=== PATIENT | male | born 1945 | race Caucasian/White ===

== ENCOUNTER 2017-03-24 14:15 | Inpatient (IN) | payer MEDICARE, OTHER ==
[~2017-03-24] VITALS: Ht 185.4 cm; Wt 84.2 kg
[~2017-03-24 14:15] MED LIST: ASPI-628 PO; ATRV10T PO; Aspirin PO; CLOP75TA3 PO; Hydrocodone/Acetaminophen PO; LISI-567 PO; LISI-611 PO; METO-386 PO; METO25TA3 PO; MULT-1073 PO; NITR0.4T SL; SIMV20TA4 PO
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
[2017-03-24 14:24] VITALS: BP 120/93; PULSE 108; RESP 22; O2SAT 97
[2017-03-24] MEDS ORDERED: 0.9% Sodium Chloride 1,000 ML IV ONE ×2 (14:38→23:00)
[2017-03-24 14:52] LABS: BASOPHILS % (AUTO) 0.1 % (0-3); EOSINOPHILS % (AUTO) 0.6 % (0-5); MONOCYTES % (AUTO) 5.7 % (4-12); Mean Corpuscular Hemoglobin 30.1 pg (27.0-35.0); Mean Corpuscular Volume 92.5 fL (81-100); NEUTROPHILS % (AUTO) 79.5 % (40-74); Platelet Count 303 bil/L (150-400)
[2017-03-24 15:10] LABS: D-Dimer 1.7 mg/L FEU (<0.50); INR 1.08 ratio
--- NOTE | 2017-03-24 15:12 | DRSVH ---
PROCEDURE: X-RAY CHEST ONE VIEW, PORTABLE ([id number]) INDICATIONS: syncope, preceding chest pain TECHNIQUE: One view of the chest was acquired. COMPARISON: None. FINDINGS: Surgical changes and devices: None. Lungs and pleura: No pleural effusions or pneumothorax. Lungs are clear. Mediastinum: Mediastinal contours appear normal. Heart size is normal. Bones and chest wall: No suspicious bony lesions. Overlying soft tissues appear unremarkable. IMPRESSION: No acute pulmonary process. Dictated by: Windy Larsen M.D. on 03/24/2017 at 14:05 Approved by: Windy Larsen M.D. on 03/24/2017 at 14:10
[2017-03-24 15:35] LABS: Creatine Kinase 64 U/L (21-232); Magnesium 2.4 mg/dL (1.6-2.6); TROPONIN T < 0.010 ug/L (0.0-0.011)
--- NOTE | 2017-03-24 16:23 | DRSVH ---
PROCEDURE: CT ANGIO CHEST PULMONARY EMBOLISM ([id number]) INDICATIONS: syncope, chest pain, CA, elevated ddimer TECHNIQUE: After the administration of intravenous contrast, 2 mm thick sections acquired from the pulmonary api elsa to the posterior costophrenic angles. 3-dimensional maximum intensity projection (MIP) coronal a nd sagittal reformats were then acquired through the thorax. For radiation dose reduction, the follo wing was used: automated exposure control, adjustment of mA and/or kV according to patient size. COMPARISON: [facility], CT, CT ABD PANCREATIC PROTOCOL, 09/16/2016, 8:35. [facility], CT, CT ABD PELVIS W CON, 03/24/2017, 16:06. FINDINGS: Image quality: Excellent. Pulmonary arteries: Pulmonary arteries are normal in size, and demonstrate no intraluminal filling d efects to suggest central pulmonary embolism. Lungs and pleura: Trace pulmonary radiopacities are present within the anterior aspect of the left up per lobe. A subtle groundglass 4 mm diameter nodule is present at the base of the right middle lobe ( series 3, image 36). No pleural effusion or pneumothorax. Mediastinum: Heart size is normal, without pericardial effusion. No mediastinal or hilar adenopathy . Thoracic aorta is normal in caliber and enhancement. Trace atheromatous plaque is present at the aortic arch. There is a right subclavian catheter the tip of which is not visualized given high densi ty contrast in the subclavian vein and superior vena cava. Esophagus is normal in caliber, without hi atal hernia. Bones and chest wall: No suspicious bony lesions. Ribs and thoracic spine appear intact throughout. There are bilateral subcentimeter low density thyroid nodules. A calcification is present within the left thyroid lobe. No axillary or supraclavicular adenopathy. Abdomen: There is a questionable 1.0 cm diameter centrally cystic lesion within the body of the pancr eas which was not visualized on the prior study (series 2, image 138). Subcentimeter calcified stones are present within the gallbladder fundus which is partially visualized. Please see detailed descrip tion of the findings on the associated CT from the same date. IMPRESSION: 1. No acute pulmonary embolus. 2. 4 mm groundglass nodule. No prior comparisons are available. Please see followup guidelines below. 3. Please see detailed description of abdominal findings on the associated CT of the abdomen from the same date. Dictated by: Vanessa Torres M.D. on 03/24/2017 at 16:12 Approved by: Vanessa Torres M.D. on 03/24/2017 at 16:21
[2017-03-24] MEDS ORDERED: Meropenem Inj 1,000 MG in 0.9% Sodium Chloride 50 ML IV ONE (16:25)
[2017-03-24] MEDS ORDERED: 0.9% Sodium Chloride 1,000 ML IV SCH (16:30)
--- NOTE | 2017-03-24 16:36 | DRSVH ---
PROCEDURE: CT ABDOMEN AND PELVIS WITH CONTRAST ([id number]) INDICATIONS: abd pain, syncope, abnl LFT TECHNIQUE: After the administration of intravenous contrast, 5 mm thick sections acquired from the diaphragm to the symphysis. 5 mm coronal and sagittal reformats were acquired. For radiation dose reduction, the following was used: automated exposure control, adjustment of mA and/or kV according to patient annie stafford. COMPARISON: [facility], CT, CT ABD PANCREATIC PROTOCOL, 09/16/2016, 8:35. FINDINGS: Image quality: Excellent. ABDOMEN: Lung bases: There is a 4 mm right middle lobe groundglass nodule. The lung bases are otherwise clear. Solid organs: Liver and spleen are normal in size and enhancement. There is subcentimeter calcified gallstones. No gallbladder wall thickening or pericholecystic fluid. Biliary system is non dilated. T here is overall normal pancreatic enhancement. The pancreas is mildly atrophic. A 1.0 cm diameter cys tic lesion is present within the body of the pancreas (series 4, image 32). No left adrenal nodules. The right kidney and adrenal gland are surgically absent. Left kidney is unremarkable. An exophytic low density cystic lesion is present at mid pole. Peritoneum and bowel: The stomach and small bowel demonstrate normal caliber and wall thickness. The appendix is not visualized. There is extensive sigmoid colon diverticulosis. There is a long segment of sigmoid colonic mucosal thickening and pericolonic fat stranding. Additionally, there is a ill-def ined 4.7 x 4.5 x 3.0 cm gas and fluid collection in the mid sigmoid colon consistent with a perforate d abscess. There is a moderate amount of pneumoperitoneum intercalated through the mesenteric fat in the left lower quadrant and in the periaortic region. Nodes and vessels: No retroperitoneal or mesenteric adenopathy by size criteria. Aorta and inferior vena cava are normal in size. There are scattered atheromatous calcifications throughout the aorta and iliac arteries bilaterally. Miscellaneous: No ventral hernias. PELVIS: Genitourinary: Bladder wall thickness is normal. Miscellaneous: No inguinal adenopathy. There is a small fat containing right inguinal hernia. Bones: No suspicious bony lesions. A severe, lytic appearing wedge compression deformity is present at L1 which is a new finding when compared with the CT dated 09/16/16. This corresponds with the expan sile lytic lesion at this level on the study dated 09/16/16. Of note, this was described as T12 on the prior study; however no ribs are visualized at this level suggesting L1). IMPRESSION: 1. Perforated acute diverticulitis with intra-abdominal abscess as above. Given the location posterio r to the sigmoid colon and the bladder, this is likely not amenable to percutaneous drainage. Surgica l consultation recommended. 2. Multiple foci of pneumoperitoneum. It is unclear whether there is a solitary perforated region of the sigmoid colon in the region of the abscess or if there may be a second bowel perforation more pro ximally in the left lower quadrant. These findings were discussed with Dr. Moreno at 4:27 PM on 03/24/17. 3. 1.0 cm diameter cystic lesion within the body of the pancreas. This is new when compared with the prior study dated 09/16/16. Differential considerations include both neoplastic and nonneoplastic cyst ic lesions. 3. Cholelithiasis. No acute cholecystitis. 4. Severe wedge compression deformity at L1 likely pathologic in nature given the expansile lytic les ion in this vertebral body on the study dated 09/16/16. Dictated by: Vanessa Torres M.D. on 03/24/2017 at 16:24 Approved by: Vanessa Torres M.D. on 03/24/2017 at 16:35
[2017-03-24] MEDS ORDERED: Meropenem Inj 1,000 MG in 0.9% Sodium Chloride 100 ML IV ONE (17:00)
[2017-03-24] MEDS ORDERED: Meropenem Inj 1,000 MG in 0.9% Sodium Chloride 100 ML IV SCH (17:00)
[2017-03-24] MEDS ORDERED: DEX1 PO (17:01)
[2017-03-24] MEDS ORDERED: LISI40TA PO (17:01)
[2017-03-24] MEDS ORDERED: METO-369 PO (17:01)
[2017-03-24] MEDS ORDERED: METF500T4 PO (17:01)
[2017-03-24] MEDS ORDERED: HYDR-3825 PO (17:01)
[2017-03-24] MEDS ORDERED: DOCU250C2 PO (17:02)
[2017-03-24] MEDS ORDERED: PAZO200T PO (17:02)
[2017-03-24] MEDS ORDERED: ASPI-973 PO (17:02)
[2017-03-24] MEDS ORDERED: Lactated Ringer's 1,000 ML IV ONE (17:34)
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
[2017-03-24] MEDS ORDERED: Lactated Ringer's 1,000 ML IV SCH (18:11)
[2017-03-24] MEDS ORDERED: Lactated Ringer's 500 ML IV PRN (18:11)
[2017-03-24] MEDS ORDERED: Atropine 0.4 mg/mL Inj IVPUSH PRN (18:15)
[2017-03-24] MEDS ORDERED: Labetalol 5 mg/mL 20 mL Inj IV PRN (18:15)
[2017-03-24] MEDS ORDERED: Phenylephrine 10,000 mCg/mL Inj IVPUSH PRN (18:15)
[2017-03-24] MEDS ORDERED: HYDROmorphone 1 mg/mL Inj IVPUSH PRN (18:15)
[2017-03-24] MEDS ORDERED: hydrALAZINE 20 mg/mL Inj IVPUSH PRN (18:15)
[2017-03-24] MEDS ORDERED: Dexamethasone 4 mg/mL Inj IVPUSH PRN (18:15)
[2017-03-24] MEDS ORDERED: EPHEDrine Sulfate 50 mg/mL Inj IVPUSH PRN (18:15)
[2017-03-24] MEDS ORDERED: Ondansetron 2 mg/mL 2 mL Inj IVPUSH PRN ×2 (18:15→21:35)
[2017-03-24] MEDS ORDERED: fentaNYL-PF 50 mCg/mL 2 mL Inj IVPUSH PRN (18:15)
--- NOTE | 2017-03-24 18:51 | HP ---
[address] [address] HISTORY AND PHYSICAL PATIENT: JOSAFAT SOLIS : 1945 MR#: [id number] ADMIT: 03/24/2017 JOB ID: [id number] CHIEF COMPLAINT: Weakness. HISTORY OF PRESENT ILLNESS: The patient is a 71-year-old man who was brought in by EMS after he developed a syncopal episode at home. On further discussion with the patient and his , he has complained of approximately three days of lack of appetite, left-sided abdominal pain, back pain, and some subjective chills but no fevers. He has not had any vomiting. Upon arrival at his house, his systolic blood pressure was reportedly 60, which improved with fluid. He complains of constipation for several days, no blood in his stool. He also complains of pain with urination and difficulty urinating. In the emergency department, his vital signs improved with IV fluids. A stat CT scan of the abdomen and pelvis was obtained as well as a CT angio of the chest looking for pulmonary embolism. There was no pulmonary embolus. There was a 4 mm ground-glass nodule in his right middle lobe. In the abdomen he had findings consistent with perforated sigmoid diverticulitis, with an abscess measuring 4.7 x 4.5 x 3.0 cm and a separate more ill-defined area of pneumoperitoneum slightly more proximally along the sigmoid colon. There is also scattered moderate amount of pneumoperitoneum along the mesenteric fat in the retroperitoneum. There was a 1 cm cystic lesion in the body of the pancreas which was new compared to his CT in September 2016, cholelithiasis, and a wedge compression at L1. PAST MEDICAL HISTORY: Renal cell carcinoma, coronary artery disease status post myocardial infarction with two stents placed, COPD, hyperlipidemia, type 2 diabetes mellitus. PAST SURGICAL HISTORY: Bilateral inguinal hernia repair, appendectomy, cardiac stents in 2011 and 2014, right nephrectomy. MEDICATIONS: At home include aspirin 81 mg, dexamethasone, docusate, lisinopril, metformin, metoprolol, pazopanib, and simvastatin. ALLERGIES: No known drug allergies. SOCIAL HISTORY: He does not smoke. Denies alcohol or illicit drug use. FAMILY HISTORY: Reviewed, negative for malignancy. REVIEW OF SYSTEMS: A 10-point review of systems is positive for unplanned weight loss, otherwise negative. PHYSICAL EXAMINATION: Temperature 36.1, pulse 108, blood pressure 120/93, saturation 97% on room air. Body mass index 25.5. General: Ill appearing man sitting in a stretcher in mild distress from pain. HEENT: Sclerae are anicteric. Neck: No lymphadenopathy. Chest: Clear to auscultation bilaterally. Heart: Regular rate and rhythm. No murmurs. Abdomen: Diffusely tender, mildly distended. He has midline laparotomy scar, right lower quadrant scar, bilateral inguinal scars. There are no discrete palpable masses. There are no palpable hernias. He does have positive guarding and rebound tenderness. Extremities: No edema. Neuro: No deficits. Psychiatric: Affect is appropriate. LABORATORIES: White count is 9.5, hematocrit 49.1, platelets 303. Creatinine 1.23, glucose 114. Bilirubin 1.4, AST 58, ALT 124, alkaline phosphatase 114. Albumin 3.3. INR 1.08. IMAGING: As described in history of present illness. ASSESSMENT AND PLAN: A 71-year-old man with perforated sigmoid diverticulitis with abscess and pneumoperitoneum with peritonitis. Because of his immunosuppression from his oral chemotherapy for renal cell carcinoma, I do not think he is a candidate for conservative treatment. I have recommended that we go to the operating room for surgical management of his perforated sigmoid colon. Most likely he will undergo a laparotomy with sigmoid colectomy, descending colostomy, and Diallo's pouch. The technical aspects of surgery were discussed. Risks of surgery were discussed, including but not limited to, bleeding, infection, injury to other structures. He has been started on broad-spectrum antibiotics which will be continued after surgery. A Dallas catheter will be placed at the time of surgery. Most likely he will need to be in the hospital for approximately one week after surgery and I would not be surprised if he needs to go to a longterm facility once he is ready for discharge from the hospital.
[2017-03-24] MEDS ORDERED: Bupivacaine Liposome 1.3% 20 mL Inj ONE (18:55)
[2017-03-24 19:42] LABS: APPEARANCE,URINE CLEAR (CLEAR,HAZY); COLOR,URINE YELLOW (YELLOW); OCCULT BLOOD,URINE NEGATIVE (NEGATIVE); PH,URINE 5.5 (5.0-8.0); UROBILINOGEN,URINE NORMAL (NORMAL)
--- NOTE | 2017-03-24 21:12 | PCM.SURGOP ---
Surgical Operative Report Date of Service: Mar 24, 2017 Pre Operative Diagnosis Perforated sigmoid diverticulitis Post Operative Diagnosis Same, feculent peritonitis Procedure: Exploratory laparotomy, sigmoid colectomy, descending colostomy (Diallo procedure) Surgeon and Esthetic[facility] [employer] [facility]: Surgeon: Vik Sagastume MD Assistants: Checo Solano MD PGY-3 Indication for Procedure 71-year-old man who has been on oral chemotherapy after recent right nephrectomy for renal cell carcinoma, who is brought in by EMS after he had a syncopal episode at home. He was described as having 3 days of anorexia and chills, as well as back pain. He was intermittently hypotensive in the emergency department. A CT scan of the abdomen and pelvis showed evidence of perforated sigmoid diverticulitis with a 4.7 cm abscess and free air in the abdomen. After discussion of risks and benefits, he agreed to proceed with exploratory laparotomy, Breen's procedure. Findings: The perforation the sigmoid colon was fairly proximal. There was feculent peritonitis, with a large abscess sitting in the pelvis. The sigmoid colon was opened on the back table after resection, and there was no evidence of neoplasia grossly. Procedure Details After smooth induction of general endotracheal anesthesia, he was placed in the supine position with the right arm tucked. A Dallas catheter was placed. The abdomen was prepped and draped in wide sterile fashion. A procedural pause was performed according to the SCOAP checklist, and all were found to be in agreement. A midline laparotomy was made from the symphysis pubis to just above the umbilicus. Dissection was carried through the subcutaneous tissue until the midline fascia was incised and the peritoneal cavity was entered safely. Immediate feculent peritonitis was encountered. Adhesions were taken down from the greater omentum to the anterior abdominal wall until a Bookwalter retractor could be placed. There are also some adhesions from the distal sigmoid colon to the bladder, which were bluntly mobilized. There was an area of perforation in the sigmoid colon fairly proximally. Over the distal sigmoid colon, there was a large abscess cavity which was drained, and I suspected there was a second perforation there, although later in the case when the colon was opened, a second perforation could not be identified grossly. The greater omentum was dissected off the sigmoid colon. The lateral peritoneal reflection was incised with electrocautery. A portion of the descending colon was selected for dividing the colon. The colon was skeletonized, and it was divided with a CONCHIS 75 mm stapler with a blue load. This was approximately 5 cm proximal to the area of perforation. This was in the mid descending colon. Dissection was then carried through the mesocolon, staying close to the colon itself to avoid injury to his remaining ureter. Dissection was performed with the LigaSure device. This dissection continued distally until the optimal rectum was reached where the tenia splayed out, and the rectum was softer and more distensible. Proximal mesorectal rectum was skeletonized posteriorly. The proximal rectum was divided with the contour stapler. A suture was placed on the proximal end of the sigmoid colon, and was placed on the back table. Hemostasis was adequate. The staple line on the rectum was marked with 0 Prolene sutures 3 with long one-inch tails. The mid descending colon had to be mobilized further for her to be able to reach the anterior abdominal wall for colostomy. The remaining retroperitoneal attachments of the descending colon were divided with the LigaSure device. The splenic flexure was not taken down, although dissection was carried up essentially to the splenic flexure. A circular incision was made in the left upper quadrant, and skin was excised. Dissection was carried down until a cruciate incision was made in the anterior rectus fascia. The muscle was split, and similarly a cruciate posterior rectus fascial incision was made. This was sized appropriately until the descending colon could be brought out through that fascial incision. The descending colon had to be skeletonized of its fat in order to be brought out through the fascial incision. It was somewhat congested, although perfused. It was left in place with Catherine clamp for the time being. 2 separate 3-0 silk sutures were placed on the posterior rectus fascia to the colon to prevent significant herniation. The peritoneal cavity was then extensively irrigated with several liters of warm saline. Hemostasis was adequate. A 19 [place] round ARCELIA drain was brought out through the right upper quadrant, looped through the pelvis into the left paracolic gutter. The drain was secured to the skin with a 2-0 nylon suture. Gloves and isthmus were changed. The midline fascia was closed with running looped 0 PDS sutures 2. The subcutaneous tissue was irrigated. The skin was closed loosely with radha. The descending colostomy was then matured after the staple line was excised and discarded. The stoma was matured with interrupted 3-0 Vicryl sutures circumferentially. A colostomy appliance was applied. Sterile dressings were applied to the midline incision. At the end of the case all needle and sponge counts were correct 2. He remained somewhat hypotensive at the end of the operation, so he was left intubated, and taken to the critical care unit in serious condition, having tolerated the procedure well. Before leaving the operating room, Dr. Gipson placed a right radial arterial catheter and a central venous catheter. The colon was opened on the back table, which again revealed no evidence of neoplasia, and it was sent for permanent pathology. Complications There were no periprocedural complications identified. Surgical Specimen Removed: Yes Specimen sent to Pathology: Yes Surgical Specimen description: Sigmoid colon Anesthetic Plan: GA Grafts, Implants: None Output, Estimated Blood Loss: 100 Blood Administration during souza: No Drains: ARCELIA Drain #1 Catheters: Urethral 2 Way [place] copies to: Ld Turcios Joshua D MD Mar 24, 2017 21:12
[2017-03-24] MEDS ORDERED: Insulin Human REGular Inj 100 UNIT in 0.9% Sodium Chloride-Pha MIX 100 ML IV SCH (21:21)
[2017-03-24] MEDS ORDERED: MetoCLOpramide 5 mg/mL 2 mL Inj IVPUSH PRN (21:35)
[2017-03-24] MEDS ORDERED: Propofol Inj 1,000,000 MCG in IV Premix 1 EACH IV SCH (21:47)
[2017-03-24] MEDS ORDERED: Phenylephrine/NS-PF 100 mCg/mL 5 mL Syringe IVPUSH PRN (21:50)
[2017-03-24] MEDS ORDERED: Midazolam Inj 100 MG in IV Premix 1 EACH IV SCH (21:52)
--- NOTE | 2017-03-24 21:52 | ABG ---
DateTimeAnalyzed 21:43:45 -_ pH ____7.330 - pCO2 ___34.6__ -mmHg pO2 153 -mmHg HCO3- ___18.2__ -mmol/L ABE ___-7.0__ -mmol/L tHb ___12.9__ -g/dL O2Hb ___98.8__ -% COHb ____1.4__ -% MetHb ____0.0__ -% FIO2 ___50.0__ -% PEEP ____0.0__ -cmH2O Set_RR 10 -b/min Vt __600.0__ -L Drawn By MK - Date/Time Notified____ 21:51:00 -_ Oxygen Device 1 VENTILATOR - Notified By MK - K+ ____4.8__ -mmol/L 3.5 5.0 Lion test _Positive -
[2017-03-24] MEDS ORDERED: Dextrose 10% 250 ML IV PRN (21:55)
[2017-03-24 21:57] VITALS: BP 91/68; O2SAT 100
--- NOTE | 2017-03-24 22:15 | PCM.ANEP1 ---
Post Anesthesia PACU Phase 1 Assessment Vital Signs Vital Signs Date Time Temp Pulse Resp B/P Pulse Ox O2 Delivery O2 Flow Rate FiO2 03/24/17 21:57 91/68 100 40 03/24/17 14:24 36.1 108 22 120/93 97 Room Air Anesthetic Administered: GA Level of Alertness: Drowsy, not talking Pain: Yes (reports "comfortable" at this time) Nausea or Vomiting: No CV Function & Hydration Stable: No Airway Device: Endotrachial Tube Oxygen Delivery: Mechanical Ventilator Lungs: Clear to Auscultation, Normal Air Movement PACU Phase 2 Assessment Complications: No Follow up Care: No Patient Instructions Provided: N/A Alvaro Gipson MD Mar 24, 2017 22:15
[2017-03-24] MEDS: fentaNYL 2,500 mCg/250 mL 2,500 MCG in IV Premix 1 EACH IV SCH (22:16)
[2017-03-24] MEDS: Norepineph 8,000 mCg/250 mL NS 8,000 MCG in IV Premix 1 EACH IV SCH (22:16)
[2017-03-24] MEDS: SODIUM CHLORIDE 0.9% IV PRN (22:27)
[2017-03-24] MEDS: MIDAZOLAM IV PRN (22:27)
[2017-03-24] MEDS: Dextrose 5% Lactated Ringer's 1,000 ML IV SCH (23:21)
[2017-03-25] VITALS (10 sets, daily range): BP systolic 94–135; BP diastolic 54–70; PULSE 90–102; RESP 12; O2SAT 98–100
[2017-03-25] MEDS: Heparin 5,000 Unit/mL Inj SUBQ SCH ×3 (00:30→15:46)
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
[2017-03-25] MEDS: Chlorhexidine 0.12% 15 mL Oral Solution MT SCH ×6 (01:05→20:14)
--- NOTE | 2017-03-25 01:26 | NUR ---
Admit note: Pt received into room 2020 at 2215 from OR per bed. Pt is sedated and being ventilated with BVM. RT in room connecting pt to vent. Anesthesia in room monitor applied shows sinus rhythm and A-line reading high BP. Anesthesia stated they had just given pt a bolus of phenelephrine prior to come to CCU. BP did start to drop and levophed was started and titrated to BP. Pt was started on versed for sedation due to propofol dropping BP. Fentanyl was also started. CVP was obtained and NS bolus was given for CVP of 5.
[2017-03-25 04:08] LABS: Mean Corpuscular Volume 92.4 fL (81-100); Platelet Count 203 bil/L (150-400)
[2017-03-25 04:24] LABS: INR 1.19 ratio
[2017-03-25 04:26] LABS: BASOPHILS % (AUTO) 0 % (0-3); EOSINOPHILS % (AUTO) 0 % (0-5); MONOCYTES % (AUTO) 2 % (4-12); NEUTROPHILS % (AUTO) 63 % (40-74)
--- NOTE | 2017-03-25 04:28 | ABG ---
DateTimeAnalyzed 04:19:27 -_ pH ____7.349 - 7.350 7.450 pCO2 ___23.6__ -mmHg 35.0 45.0 pO2 170 -mmHg 69.0 116 HCO3- ___13.0__ -mmol/L 22.0 26.0 ABE __-11.5__ -mmol/L -2.0 2.0 tHb ___10.4__ -g/dL 12.0 18.0 O2Hb ___99.1__ -% COHb ____1.5__ -% 0.0 1.5 MetHb ____0.0__ -% 0.4 1.5 FIO2 ___40.0__ -% PEEP ____5.0__ -cmH2O Set_RR 12 -b/min Vt __580.0__ -L Drawn By MK - Date/Time Notified____ 04:28:00 -_ Spontaneous_RR 12 -b/min Oxygen Device 1 VENTILATOR - Notified By MK - Notified Whom __beuning - K+ ____3.4__ -mmol/L 3.5 5.0 Lion test N/A -
--- NOTE | 2017-03-25 04:40 | PROCED ---
[address] [address] PROCEDURE NOTE PATIENT: JOSAFAT SOLIS : 1945 MR#: [id number] ADMIT: 03/24/2017 JOB ID: [id number] DATE OF SERVICE: DIAGNOSIS: Hypotension. POSTOPERATIVE DIAGNOSIS(ES): PREOPERATIVE DIAGNOSIS(ES): SURGEON: Alvaro Gipson MD. PROCEDURE: Central line placement. At the conclusion of the patient's colectomy in the operating room, a decision was made to place a central line in lieu of the patient's decreasing blood pressures. DESCRIPTION OF PROCEDURE: The patient was placed in the Trendelenburg position. His neck was sterilely prepped and draped and using a sterile Seldinger technique, a triple-lumen catheter was placed under ultrasound guidance. The left internal jugular was accessed at the first attempt. Blood loss was less than 3 cc. There was good flow in all three lumens and sterile dressing was applied. NAV
[2017-03-25] MEDS ORDERED: Sodium Bicarb (50 mEq) 8.4% 1 mEq/mL 50 mL Syringe IVPUSH ONE (05:50)
--- NOTE | 2017-03-25 06:06 | ABG ---
DateTimeAnalyzed 05:57:53 -_ pH ____7.463 - 7.350 7.450 pCO2 ___36.8__ -mmHg 35.0 45.0 pO2 102 -mmHg 69.0 116 HCO3- ___26.3__ -mmol/L 22.0 26.0 ABE ____2.4__ -mmol/L -2.0 2.0 tHb ___11.6__ -g/dL 12.0 18.0 O2Hb ___98.0__ -% COHb ____1.6__ -% 0.0 1.5 MetHb ____0.0__ -% 0.4 1.5 sO2 ___99.6__ -% FIO2 ___28.0__ -% PEEP ____5.0__ -cmH2O Set_RR 12 -b/min Vt __520.0__ -L Drawn By MK - Date/Time Notified____ 06:05:00 -_ Spontaneous_RR 12 -b/min Oxygen Device 1 VENTILATOR - Notified By MK - K+ ____4.4__ -mmol/L 3.5 5.0 tO2 ___16.1__ -Vol% Lion test N/A -
[2017-03-25] MEDS: Dextrose 5% Lactated Ringer's 1,000 ML IV SCH ×4 (07:37→20:15)
--- NOTE | 2017-03-25 07:57 | DRSVH ---
PROCEDURE: X-RAY CHEST ONE VIEW, PORTABLE ([id number]) INDICATIONS: line placement, endotracheal tube placement assess TECHNIQUE: One view of the chest was acquired. COMPARISON: [facility], CR, XR CHEST 1VW (PORTABLE), 03/24/2017, 14:40. FINDINGS: Surgical changes and devices: ET tube with tip 3.3 CM above the willie. Enteric tube with tip below t he diaphragm. Left IJ CVC with tip at the confluence of the brachiocephalic veins. Lungs and pleura: Small left pleural effusion. No pneumothorax. Left basilar atelectasis otherwise th e lungs are clear. Mediastinum: Mediastinal contours appear normal. Heart size is normal. Bones and chest wall: No suspicious bony lesions. Overlying soft tissues appear unremarkable. IMPRESSION: New ET tube, enteric tube, and left-sided IJ CVC in expected positions. New left pleural effusion with left basilar atelectasis. Dictated by: Bang Chung M.D. on 03/25/2017 at 7:54 Approved by: Bang Chung M.D. on 03/25/2017 at 7:56
[2017-03-25] MEDS: Famotidine Inj 20 MG in IV Premix 1 EACH IV SCH ×2 (08:27→20:14)
[2017-03-25] MEDS: Norepineph 8,000 mCg/250 mL NS 8,000 MCG in IV Premix 1 EACH IV SCH ×2 (09:11→22:00)
--- NOTE | 2017-03-25 09:22 | PCM.PNSURG ---
Subjective Date of Service: Mar 25, 2017 Visit Information: Reason for Visit Perferated Diverticulitis Surgery/Surgery Date Post-Op Day # Date of Admission: Mar 24, 2017 at 17:07 Hospital Day # Subjective: No acute overnight events Remained intubated and sedated Weaned off pressors late this morning Did not require an insulin gtt Objective Vital Sign- Last 8 Hours Date Time Temp Pulse Resp B/P Pulse Ox O2 Delivery O2 Flow Rate FiO2 03/25/17 08:40 100 109/65 100 28 03/25/17 07:57 Ventilator 03/25/17 07:55 37.7 90 12 135/70 98 Mechanical Ventilator 28 03/25/17 04:33 85 111/63 100 28 03/25/17 04:30 Ventilator Intake and Output- Last 8 Hour 03/25/17 Cumulative From/Thru 07:00 03/24/17 14:24 - 03/25/17 05:35 Intake Total 2752 ml 3752 ml Output Total 630 ml 750 ml Balance 2122 ml 3002 ml Intake IV Total 2752 ml 3752 ml Output Urine Total 500 ml 500 ml Gastric Drainage Total 0 ml 0 ml Drainage Total 130 ml 130 ml Estimated Blood Loss 120 ml General: Other (Intubated/sedated) Lungs: Normal Air Movement Heart: Regular Rate/Rhythm Abdomen: Soft, Other (Midline incision dressed with clean gauze. RUQ ARCELIA with serosanguinous output. LUQ ostomy dusky and purple, no output in bag. ) Catheters: Urethral [address] Way [place] Result Diagram: 03/25/17 0400 03/25/17 0400 Assessment & Plan Impression 71M s/p exploratory lapatoromy with sigmoid/descending colon resection, Hartmanns and end-descending colostomy for perforated diverticulitis. He is current intubated and sedated with normalizing hemodynamics. Problems: Plan - Appreciate ongoing care from primary critical care team - Continue broad spectrum antibiosis - Ok to consider extubation from surgical standpoint - Aggressive glycemic control. Please continue Q3 glucose checks today. Insulin gtt if GB >180 - [place] and ARCELIA should remain - Regarding the ostomy, we will allow this to demarcate and declare if intervention is required over the course of the next several days. - Please do not hesitate to page with questions or concerns. VTE Prophylaxis: Sub-Q Heparin (Unfractionated) Resuscitation Status: CPR: Attempt Resuscitation Attending Statement: I examined this patient and agree with the note as dictated by Dr. Solano above with the exception of the following update. On morning rounds, the surgery team was informed that the pt had been weaned off of pressors and was on antibiotics. It was later discovered that pressors were still running and the only antibiotic order was a one time dose. Scheduled antibiotics were later ordered. Discussions were had with all involved parties (day and skein washer RN , hospitalist attending/resident/analysis intern, surgery resident, MS3). MD Xiomara Duran Samuel J MD Mar 25, 2017 09:22 Kjaal Johnson MD Mar 26, 2017 09:13
--- NOTE | 2017-03-25 10:30 | NUR ---
NUTRITION ASSESSMENT: ASSESS:71 YO male admitted with perforated diverticulitis, pneumoperitoneum with peritonitis, s/p exploratory laparotomy with sigmoid / descending colon resection, Diallo's and end-descending colostomy. He is current intubated and sedated with normalizing hemodynamics. Surgery recommending moving toward extubation. PMHx:Renal cell cancer with current chemotherapy, immunosuppression, R. nephrectomy, CAD, COPD, HTN, dyslipidemia, type 2 diabetes, hiatal hernia, GI bleed. DIET:NPO. LABS: Reviewed. Chloride 113, CO2 14, Cr 0.75, Glu 145, Ca 7.1, ALT 66, Alb 1.7. MEDICATIONS: Reviewed. Versed, fentanyl, insulin. NUTRITION FOCUSED PHYSICAL ASSESSMENT: GI symptoms / stool: None via colostomy currently.Bryan: 13. Skin Integrity: The ostomy site appears abnormal; surgery following. ANTHROPOMETRICS: Current Wt: 88.1 kgBMI: 25.6 kg/m2. IBW: 83.64 kg (105% IBW) ESTIMATED NEEDS (GI SURGERY, VENT, POSS. WOUNDS): Calories: 1938 - 2203 kcal (22 - 25 kcal / kg BW) Protein: 132 - 159 g protein (1.5 - 1.8 g / kb BW) Fluid: Approx. 2643 mL (30 mL / kg BW) NUTRITION DIAGNOSIS: 1)Inadequate oral intake related to altered GI function, as evidenced by colectomy / colostomy, NPO status. 2)Possible wound infection related to recent colostomy placement; surgery following. INTERVENTION: 1) In the event bowel function does not return over the weekend, recommend consideration for TPN to mitigate malnutrition due to increased nutrient needs. Recommendation: dextrose 290 g, amino acid 145 g, lipids 55 g, providing 2116 kcal, 145 g protein, sufficient to meet 100% nutrient needs. 2) In the event TPN ordered, recommend initiate macronutrients at approx. 35% goal, as follows to mitigate refeeding issues: dextrose 100 g, amino acid 50 g, 20 g lipids. Slowly advance to goal rate. MONITOR/EVALUATE: NPO / vent status, GI status, labs, orders for nutrition support. Follow up per high nutrition risk guidelines.
--- NOTE | 2017-03-25 13:20 | CONS ---
[address] [address] CONSULTATION REPORT PATIENT: JOSAFAT SOLIS : 1945 MR#: [id number] ADMIT: 03/24/2017 JOB ID: [id number] DATE OF SERVICE: 03/25/2017 REASON FOR CONSULTATION: Postop hypotension and ventilatory care. HISTORY OF PRESENT ILLNESS: The patient is a 71-year-old, male who developed a syncopal episode at home. Apparently, has had a poor appetite with left-sided abdominal pain, back pain for about three days. No apparent fevers. No vomiting. Upon arrival, blood pressure reported by paramedics to be 60, improving with fluid. Vital signs improved with IV fluids in the emergency department. Evaluation consistent with a perforated sigmoid diverticulitis with an abscess present. The patient currently sedated on a ventilator. Unable to obtain any other facts. He underwent Diallo's procedure with sigmoid colectomy and descending colostomy. Had some episodes of hypotension responding to fluid. Currently on pressors. Admission note indicates that he suffers from coronary artery disease being status post two stents, COPD, and right-sided renal cell carcinoma with nephrectomy, October 2016. According to the records no review of systems. Was unable to be obtained. PAST MEDICAL HISTORY: As above. HOME MEDICATIONS: Include aspirin, dexamethasone, docusate, lisinopril, metformin, metoprolol, pazopanib, simvastatin, hydrocodone with acetaminophen, and sublingual nitroglycerin. No other details are available. Chart notes no known allergies. OBJECTIVE: Temperature 37.7. Pulse 90-100, respiratory rate 12. Blood pressure 109/65, currently dropping to high 80s over low 50s. O2 sat on FiO2 of 28%, PEEP of 5 is 100%. General appearance: Sedated on the ventilator. Eyes: Conjunctivae are pink. Nose and throat could not be examined. Chest is clear with excellent breath sounds bilaterally. Heart: Regular rhythm. Heart tones normal. Abdomen soft. Quiet. Colostomy in place with surgical bandages covering majority of his anterior abdomen. Extremities: No clubbing, cyanosis, nor pretibial edema. Extremities: Warm. LABORATORY DATA: Shows a white count of 6500 with 63 polymorphonuclears, 19 bands, 16 lymphs, 2 monocytes. Hemoglobin 12.2, down from 16 prior to surgery. Platelet count 203,000, down from 303,000 prior to surgery. Sodium 138, potassium 5, chloride 113, CO2 is 14, BUN 27, creatinine 0.7. Lactic acid 1.8. Calcium is 7.1 with an albumin of 1.7 which was 3.3 prior to surgery. Total bilirubin 1.2. AST normal at 29. ALT 66, mildly elevated, but decreasing. Alkaline phos normal at 63. INR 1.19. Postop chest x-ray shows some atelectasis, some increased opacification left base. Most recent arterial blood gases on FiO2 of 0.28, PEEP of 5, respiratory rate of 12, tidal volume of 520 shows pO2 of 102, pCO2 of 36, pH 7.46. ASSESSMENT: Diverticulitis with perforation. Currently blood pressure is a bit unstable. For what it is worth, central venous pressure is 5. Has responded to fluids. He seems a bit hyperchloremic though his potassium is somewhat high. I think at this point, we will continue fluid resuscitation using saline in spite of the hyperchloremia in order to avoid significant hyperkalemia. Would like to get his blood pressure up without the use of pressors due to its effect on the mesenteric perfusion with the colostomy being a bit iffy at this point. Currently on broad-spectrum antibiotics. Fentanyl and Versed being used for sedation. From a ventilatory standpoint, she seems to be doing well. Will start lightening sedation and see how we do. 1. Continue current vent settings. 2. Discontinue lactated Ringer's, using normal saline for fluid resuscitation. For the moment, will administer 500 mL bolus and assess response. 3. Depending on response, will try to taper the norepinephrine. Thank you so much, Dr. Johnson, for asking Pulmonary Service to become involved in the care of this individual. Will follow his respiratory and hemodynamic status closely along with you, as well as the critical care ICU team. Time spent so far in critical care, 45 minutes.
[2017-03-25] MEDS: SODIUM CHLORIDE 0.9% IV PRN (13:33)
[2017-03-25] MEDS: MIDAZOLAM IV PRN (13:33)
--- NOTE | 2017-03-25 14:21 | NUR ---
Note Sedation- fentanyl and versed drips titrated to comfort. Fentanyl drip at 100mcg/h. versed drip titrated down gradually from 5mg/h to 3mg/h so far. Patient appeared relax and breathing with ventilator set rated of 12breeths per min. Patient was waking up and appeared agitated during turning and repositioning, often reaching upwards towards ET tube when unrestrained for position changes. Patient was able to relax after verbally reoriented and reassured turning and did not require additional sedation for this activity at the time. Ventilator- PRVC 28%, RR 12, PEEP 5 and TV 550 with oxygen saturation 98-100%. MD contemplating ex-tubation when patient more stable- no vent pressure support trail ordered yet. BP/HR-Patient remained on levophed drip for pressure support. Drip was weaned down gradually from 0.06mcg/kg/min to 0.04mcg/kg/min and patient remained stable until sudden onset of SVT at 130-135 ranges wit SBP decreasing to 85-90 ranges- consulted with Dr. Riddle. Patient was given NS bolus 500ml X1 per MD verbal order and levophed drip was increased to 0.05mcg/kg/min at the time. SVT resolved in under 10min ant the patients heart rate returned to his baseline of 90-110, BP stabilized. There was a definite correlation between patients increased heart rate and decrease in SBP-MD aware. Mid abdominal dressing remained C/D/I. ARCELIA to bulb suction with small to moderate amount of serum-sanguineous drainage. Colostomy: bowel lining 2-3mm below skin surface- seen by Dr. Johnson surgical team minimal amount of sanguineous drainage-no changed. Wound care consult was ordered for ostomy care follow up. OG to low continues suction with small amount of light green to clear gastric content in collection canister- HOB up, OG placement checked Q4 and PRN.
--- NOTE | 2017-03-25 18:18 | PCM.PNMED ---
Subjective Date of Service Mar 25, 2017 Subjective Subjective: Patient unable to participate in his care as he is currently on the ventilator and sedated Events Overnight: No acute events overnight. ROS: Due to the patient being comatose, a review of systems was unable to be obtained. Exam Vital Signs Vital Sign - Last Date Time Temp Pulse Resp B/P Pulse Ox O2 Delivery O2 Flow Rate FiO2 03/25/17 16:28 100 112/68 100 28 03/25/17 15:40 Ventilator 03/25/17 15:38 37.5 12 Intake and Output 03/24/17 03/24/17 03/25/17 Cumulative From/Thru 15:00 23:00 07:00 03/24/17 14:24 - 03/25/17 05:35 Intake Total 1000 ml 2752 ml 3752 ml Output Total 120 ml 630 ml 750 ml Balance 880 ml 2122 ml 3002 ml Intake IV Total 1000 ml 2752 ml 3752 ml Output Urine Total 500 ml 500 ml Gastric Drainage Total 0 ml 0 ml Drainage Total 130 ml 130 ml Estimated Blood Loss 120 ml 120 ml Exam General: No acute distress, well-developed, well-nourished HEENT: Normocephalic, atraumatic. External ears without defect. Pupils equal, round, and reactive to light and accommodation. Anicteric sclerae, moist conjunctivae. Cardiovascular: Regular rate and rhythm with no murmurs, rubs, or gallops appreciated Pulmonary: Patient is currently on the ventilator, breath sounds are coarse due to ventilation status. Abdomen: Bowel tones present. Soft, nondistended, ostomy in place, no fecal material in the pouch Extremities: No clubbing, cyanosis, edema Skin: Normal temperature, turgor, and texture; no rash, ulcers, or subcutaneous nodules appreciated. Neurological: Unable to assess Normal tone, and bulk. Psychiatric: Unable to assess IVs and Medications IV Fluids 1400 mL normal saline delivered with IV medications. Medications Reviewed: Medications were reviewed in detail Medications High risk medications include: Norepinephrine Midazolam Fentanyl Versed Lab and Diagnostics Result Diagram: 03/25/17 0400 03/25/17 1543 X-Rays, CTs and MRIs (03/24/17) X-RAY CHEST ONE VIEW, PORTABLE IMPRESSION: No acute pulmonary process. Dictated and approved by: Windy Larsen M.D. on 03/24/2017 at 14:05 (03/24/17) CT ANGIO CHEST PULMONARY EMBOLISM IMPRESSION: 1. No acute pulmonary embolus. 2. 4 mm groundglass nodule. No prior comparisons are available. Please see followup guidelines below. 3. Please see detailed description of abdominal findings on the associated CT of the abdomen from the same date. ADDENDUM: Fleischner Society criteria for SOLID lung nodule followup. Nodule size (mm)Low-risk patientHigh-risk [id number] follow-up neededFollow-up at 12 mo; if no change, no further follow-up>[id number] CT at 12 mo; if no change, no further follow-up needed.Initial follow-up CT at 6-12 mo, then 18-24 mo if no change. >6-8Initial follow-up CT at 6-12 mo, then 18-24 mo if no change. Initial follow-up CT at 3-6 mo, then 9-12 mo and 24 mo if no change. > 8Follow-up CT at 3, 9, 24 mo. Or PET and/or biopsy.Same as for low-risk pts. Fleischner Society criteria for SUB-SOLID lung nodule followup. Solitary pure ground-glass nodules5 mm or lessNo followup needed. >5 mm3 mo follow-up CT to confirm persistence. Then annual CT for 3 years. Part-solid nodules3 mo follow-up CT to confirm persistence. If persistent with solid component <5 mm, annual CT for at least 3 years. If solid component is 5 mm or more, biopsy or surgical resection. Consider PET-CT for lesions > 10 mm. Multiple sub-solid nodulesPure ground glass nodules [address] at 2 and 4 years. Pure ground glass nodules >5 mm without dominant lesion. [address] to confirm persistence, then annual followup CT for at least 3 years. Dominant nodule(s) with part-solid or solid component. [address] to confirm persistence. If persistent, consider biopsy or surgical resection, carlito if lesions have >5 mm solid component. Dictated and approved by: Vanessa Torres M.D. on 03/24/2017 at 16:23 (03/24/17) CT ABDOMEN AND PELVIS WITH CONTRAST IMPRESSION: 1. Perforated acute diverticulitis with intra-abdominal abscess as above. Given the location posterior to the sigmoid colon and the bladder, this is likely not amenable to percutaneous drainage. Surgical consultation recommended. 2. Multiple foci of pneumoperitoneum. It is unclear whether there is a solitary perforated region of the sigmoid colon in the region of the abscess or if there may be a second bowel perforation more proximally in the left lower quadrant.These findings were discussed with Dr. Moreno at 4:27 PM on 03/24/17. 3. 1.0 cm diameter cystic lesion within the body of the pancreas. This is new when compared with the prior study dated 09/16/16. Differential considerations include both neoplastic and nonneoplastic cystic lesions. 4. Cholelithiasis. No acute cholecystitis. 5. Severe wedge compression deformity at L1 likely pathologic in nature given the expansile lytic lesion in this vertebral body on the study dated 09/16/16. Dictated and approved by: Vanessa Torres M.D. on 03/24/2017 at 16:24 X-RAY CHEST ONE VIEW, PORTABLE IMPRESSION: New ET tube, enteric tube, and left-sided IJ CVC in expected positions. New left pleural effusion with left basilar atelectasis. Dictated by: Bang Chung M.D. on 03/25/2017 at 7:54 Approved by: Bang Chung M.D. on 03/25/2017 at 7:56 . Additional Diagnostics ABG pH 7.463 pCO2 36.8 pO2 102 HCO3- 26.3 FIO2 28.0 PEEP 5.0 Assessment & Plan 71 year old gentleman with a history of CAD with 2 stents, COPD, hyperlipidemia , and right-sided renal cell carcinoma (s/p nephrectomy in October 2016) currently treated with Pazopanib presenting to the CCU hypotensive and intubated status post sigmoid colectomy with descending colostomy for perforated diverticulitis. Hypotension, acute. Active -Likely stress reaction secondary to perforated bowel with associated intra- abdominal abscess. Minimal blood loss noted during surgery. -Pt hypertensive at baseline. Transferred to CCU post-op requiring pressor support. (received phenylephrine in the OR) -Received 2.5 liters in the OR, addition 1L bolus of NS on the floor -Continue norepinephrine to maintain MAP >65, titrate as tolerated -Continue IV fluids Perforated diverticulitis with intra-abdominal abscess. Present on admission. -s/p sigmoid colectomy and descending colostomy. Received IV meropenem pre-op -CT abd/pelvis as above. -Ostomy site bowel flap not inverted, no stool in the ostomy bag -General surgery is recommends allowing ostomy to demarcate and declare if intervention is required over the course of the next several days. -[place] and ARCELIA drain should remain for now. -Start IV Zosyn Coronary artery disease, chronic. Present on admission. Presumed stable. -Pt with prior MD and two stents. Presented with mild chest pain with negative cardiac enzymes and no acute ischemic changes noted on ECG. -Continue home simvastatin and aspirin -Continuous cardiac monitoring. Acute Respiratory Failure due to surgery and COPD, chronic. Present on admission. Presumed stable. -Pt intubated and sedated in the CCU. At presentation he did not appear to be in acute exacerbation. -Continue ventilator support, pressure support trial as able Renal cell carcinoma of right kidney, chronic. Presumed stable. -Pt is s/p nephrectomy in October 2016, currently treated with Pazopanib and dexamethasone. -CT abd/pelvis showed a renal cyst as above. Consider consult to Oncology -Resume oral medications when able -If pt remains intubated, will likely add IV steroid Diabetes mellitus, type 2, chronic. Present on admission. Presumed stable. -Serum glucose 114 at presentation, no HbA1c on file -Current outpatient therapy is Metformin 500mg PO BID -Hold Metformin -Glucose last checked 160s, continue tight glucose control. Per recommendations of general surgery if >180 use insulin drip. Hypertension, chronic. Present on admission. Active -Pt currently hypotensive and requiring pressor support with norepinephrine. -Held home antihypertensives: Lisinopril 40mg PO daily, Metoprolol succinate 50mg PO daily Hyperlipidemia, chronic. Present on admission. Presumed stable. -Continue home dose statin (Simvastatin 20mg PO HS) PRN: Acetaminophen-fever/headache/mild/moderate pain Antiemetics, as needed Bowel regimen, as needed. Disposition: Patient will remain in the hospital until medically stable to return home, I expect this will be within the next 5-8 days. GI Prophylaxis: H2 saw VTE Prophylaxis: Sub-Q Heparin (Unfractionated) VTE Mechanical Devices: Intermittant Pneumatic CD Resuscitation Status: CPR: Attempt Resuscitation Attending Statement The patient was seen and examined together with Dr. Suggs on 03/25/17 and I have added additional information to the note above. Mode Suggs DO Mar 25, 2017 18:18 Aysha León Mar 25, 2017 19:58
--- NOTE | 2017-03-25 18:37 | NUR ---
BP/positive blood culture Patient remained dependent on levophed drip for BP support unable to wean off and in addition patient required increase in drip level this evening. Patient received additional 500ml of NS bolus over 1h for BP and CVP support- DM aware- please refer to CCU flows sheet for vitals and drip titration. Bottle one out of 4 blood culture bottles positive for gram positive organism per microbiology staff reporting this evening- results were related to the attending MD.
[2017-03-25] MEDS: fentaNYL 2,500 mCg/250 mL 2,500 MCG in IV Premix 1 EACH IV SCH (20:55)
[2017-03-25] MEDS ORDERED: Phenylephrine/NS-PF 100 mCg/mL 5 mL Syringe IVPUSH ONE (22:29)
[2017-03-25] MEDS ORDERED: fentaNYL-PF 50 mCg/mL 2 mL Inj ONE (22:29)
[2017-03-25] MEDS ORDERED: Propofol 10 mg/mL 20 mL Inj ONE (22:29)
[2017-03-25] MEDS ORDERED: HYDROmorphone 1 mg/mL Inj ONE (22:29)
[2017-03-25] MEDS ORDERED: Neostigmine 1 mg/mL 5 mL Inj ONE (22:29)
[2017-03-25] MEDS ORDERED: Glycopyrrolate 0.2 MG/ML 1mL Inj ONE (22:29)
[2017-03-25] MEDS ORDERED: Ondansetron 2 mg/mL 2 mL Inj ONE (22:29)
[2017-03-25] MEDS ORDERED: Succinylcholine Chloride 20 mg/mL 5 mL Inj ONE (22:29)
[2017-03-26] VITALS (13 sets, daily range): BP systolic 102–148; BP diastolic 53–67; PULSE 62–91; RESP 12; O2SAT 89–100
[2017-03-26] MEDS: Chlorhexidine 0.12% 15 mL Oral Solution MT SCH ×6 (00:53→19:41)
[2017-03-26] MEDS: Piperacillin-Tazo 3.375 Gm Inj 3.375 GM in Dextrose 5% Minibag Plus 50 ML IV SCH ×3 (00:54→16:18)
[2017-03-26] MEDS: Heparin 5,000 Unit/mL Inj SUBQ SCH ×3 (00:56→16:18)
--- NOTE | 2017-03-26 04:00 | ABG ---
DateTimeAnalyzed 03:52:04 -_ pH ____7.429 - 7.350 7.450 pCO2 ___28.7__ -mmHg 35.0 45.0 pO2 ___92.1__ -mmHg 69.0 116 HCO3- ___19.0__ -mmol/L 22.0 26.0 ABE ___-4.9__ -mmol/L -2.0 2.0 tHb ___10.5__ -g/dL 12.0 18.0 O2Hb ___97.7__ -% COHb ____1.6__ -% 0.0 1.5 MetHb ____0.0__ -% 0.4 1.5 sO2 ___99.1__ -% FIO2 ___28.0__ -% PEEP ____5.0__ -cmH2O Set_RR 12 -b/min Vt __550.0__ -L Drawn By MK - Date/Time Notified____ 04:00:00 -_ Spontaneous_RR 12 -b/min Oxygen Device 1 VENTILATOR - K+ ____3.8__ -mmol/L 3.5 5.0 tO2 ___14.5__ -Vol% OrderingPhysicianInitials mf - Lion test N/A -
[2017-03-26] MEDS ORDERED: Acetaminophen IV 1,000 MG in IV Premix 1 EACH IV PRN (05:10)
[2017-03-26] MEDS: 0.9% Sodium Chloride 500 ML IV PRN (06:20)
--- NOTE | 2017-03-26 06:36 | NUR ---
BP/fever/stoma: Pt continued to be weaned off levophed through out the night receiving several NS boluses increasing CVP to 9. Levophed had been off for about an hour but was restarted at .o1mcg/kg/min and 500ml bolus was given at 0620. At 0430 pt had spiked temp of 39.0. Dr Hernandez was notified of fever and how the stoma was sunken in and necrotic looking. Dr Johnson was also paged and informed about pt spiking temp and how the stoma looked. Pt was given 1000mg IV tylenol and repeat blood cultures were drawn. recheck of temp was37.4. Addendum: 03/26/17 at 2202 by LATHA CRAFT RN At 429 had also discussed with Dr. Hernandez that pt had positive blood culture showing gram neg cocci possible staph and asked if pt should be started on vanco. Dr. Hernandez stated it was just one of four and he was not a big concern for MRSA and would wait and see if any of the other cultures turned out positive.
--- NOTE | 2017-03-26 07:30 | NUR ---
Desat/hypotensive: Pt had been off levophed since around 05 with systolic BP holding around high 90s to low 110s, diastolic staying in the 50s, and the MAP between mid 70s to mid 80s. At 0615 BP started to drop to 89/51 fluid bolus 500mls of NS was given and levophed restarted and titrate to .02mcg/kg/min, with BP increasing to systolic of 90s and MAP around mid 60s. Report was given to day RN and after boosting pt in bed and turning pt began to desat. Pt was suctioned and Spo2 probe position was checked, ETT and circuit checked for disconnections. RT was called to trouble shoot. Around 719 Dr. Johnson and surgery resident team arrive at room and assess pt. Dr. Brizuela stated that she knew pt's colostomy stoma was not healthy looking and probably needed surgery, but with the pt being to unstable "cutting him open again and the stress of the surgery would probably kill him" and best thing to do is watch and monitor him and a lot of the time the stoma condition improves and "PLEASE DON"T PAGE OR CALL ME ABOUT THIS ANYMORE".
[2017-03-26 07:42] LABS: BASOPHILS % (AUTO) 0 % (0-3); EOSINOPHILS % (AUTO) 1.3 % (0-5); MONOCYTES % (AUTO) 3.5 % (4-12); Mean Corpuscular Hemoglobin 30.7 pg (27.0-35.0); NEUTROPHILS % (AUTO) 77.8 % (40-74); Platelet Count 121 bil/L (150-400)
[2017-03-26] MEDS: Dextrose 5% Lactated Ringer's 1,000 ML IV SCH ×4 (07:49→21:19)
--- NOTE | 2017-03-26 08:34 | DRSVH ---
PROCEDURE: X-RAY CHEST ONE VIEW, PORTABLE ([id number]) INDICATIONS: 71 year-old male with shortness of breath. TECHNIQUE: One view of the chest was acquired. COMPARISON: [facility], CR, XR CHEST 1VW (PORTABLE), 03/24/2017, 21:51. [facility], CR, XR CHEST 1VW (PORTABLE), 03/24/2017, 14:40. FINDINGS: Surgical changes and devices: Endotracheal tube is again noted, with tip 5.0 cm above the willie. Eso phagogastric tube is also present. Left internal jugular central venous catheter is again noted, with tip in the left brachiocephalic vein. Lungs and pleura: No pleural effusions or pneumothorax. Lung volumes are decreased, with patchy left midlung atelectasis. Mediastinum: Mediastinal contours appear normal. Heart size is normal. Bones and chest wall: No suspicious bony lesions. Overlying soft tissues appear unremarkable. IMPRESSION: Decreased lung volumes, with patchy left midlung atelectasis. Dictated by: Darius Molina M.D. on 03/26/2017 at 8:30 Approved by: Darius Molina M.D. on 03/26/2017 at 8:33
[2017-03-26] MEDS: Famotidine Inj 20 MG in IV Premix 1 EACH IV SCH ×2 (09:27→19:44)
--- NOTE | 2017-03-26 09:37 | PCM.PNSURG ---
Subjective Date of Service: Mar 26, 2017 Visit Information: Reason for Visit Perferated Diverticulitis Surgery/Surgery Date Post-Op Day # Date of Admission: Mar 24, 2017 at 17:07 Hospital Day # Subjective: Required ongoing pressor support overnight in addition to several boluses of IVF. Total IVF administration 4L UOP appropriate at 550 cc over last 8 hours Tmax 39C overnight prompting blood cx which are preliminarily positive for GPCs Stoma continues to appear dusky/necrotic Minimal NG output Objective Vital Sign- Last 8 Hours Date Time Temp Pulse Resp B/P Pulse Ox O2 Delivery O2 Flow Rate FiO2 03/26/17 07:31 72 107/57 90 40 03/26/17 07:25 Ventilator 03/26/17 07:25 37.5 70 12 107/59 89 Mechanical Ventilator 28 03/26/17 04:30 39.0 91 12 111/53 99 Mechanical Ventilator 28 03/26/17 04:30 Ventilator 03/26/17 04:03 87 104/62 99 28 Intake and Output- Last 8 Hour 03/26/17 Cumulative From/Thru 06:58 03/24/17 14:24 - 03/26/17 06:14 Intake Total 4000 ml 9893 ml Output Total 660 ml 2295 ml Balance 3340 ml 7598 ml Intake IV Total 4000 ml 9853 ml Tube Irrigant 40 ml Output Urine Total 550 ml 1795 ml Gastric Drainage Total 50 ml 125 ml Drainage Total 60 ml 255 ml Estimated Blood Loss 120 ml General: Other (Intubated/sedated) Lungs: Normal Air Movement Abdomen: Soft, Other (Minimally distended. Midline wound covered in gauze dressing. RUQ ARCELIA with serosanguinous output, not purulent. Ostomy dusky/dark appearing, sweat in bag, no gas or stool.) Extremities: Warm Result Diagram: 03/26/17 0738 03/26/17 0738 Assessment & Plan Impression POD#2 s/p exploratory laparotomy with Diallo's and descending end colostomy for perforated diverticulitis and feculent peritonitis. He remains in septic shock requiring vasopressor support but has appropriate UOP and a soft abdomen. His ostomy is not healthy appearing but we will not plan on intervening surgically given his instability at this time. Problems: Plan - Appreciate ongoing care from CCU team - Wean pressors as able - Extubate when deemed stable by primary team - Please continue broad spectrum antibiosis for his septic shock and feculent peritonitis - Though his postive blood cx may be a contaminate, please consider addition of vancomycin empirically until speciation - ARCELIA and leonardo should remain - Trend labs daily - Aggressive glycemic control. Please consider starting insulin gtt if BG >180 - If extubated, patient will require a SURGEON CHIEF for analgesia - Please do not hesitate to page or call the surgical team with questions or concerns. I examined this patient and I agree with the note as dictated above. Kajal Johnson MD VTE Prophylaxis: Sub-Q Heparin (Unfractionated) Resuscitation Status: CPR: Attempt Resuscitation Gilbert Solano MD Mar 26, 2017 09:37 Kajal Johnson MD Mar 31, 2017 16:40
[2017-03-26] MEDS ORDERED: Albumin 25% 50 GM in IV Premix 1 EACH IV ONE (09:45)
--- NOTE | 2017-03-26 11:12 | PROG NOTE ---
[address] [address] PROGRESS NOTE PATIENT: JOSAFAT SOLIS : 1945 MR#: [id number] ADMIT: 03/24/2017 JOB ID: [id number] DATE: 03/26/2017 PROBLEMS: 1. Diverticulitis with perforation. 2. Hypoalbuminemia. 3. Coronary artery disease status post 2 stents. 4. Chronic obstructive pulmonary disease. 5. Right-sided renal carcinoma status post nephrectomy October 2016. SUBJECTIVE: None. PHYSICAL EXAMINATION: Temperature 37.5, though T-max of 39, pulse 70s currently running 50s. O2 sat on FiO2 of 30%, PEEP of 5, 96%. General appearance sedated. Eyes conjunctiva are pink. Pupils pinpoint. Nose and throat could not be examined. Chest fairly good breath sounds bilaterally. There are a few crackles at the right lower lung field. With tidal volume of 550 and PEEP of 5, peak inspiratory pressure 21, plateau 15. PEEP is set at 5, measured at 5. Patient's breathing at 12 with the ventilator set at 12. Heart regular rhythm. Heart tones seem normal. Abdomen is soft. Exquisitely tender. Colostomy has some areas that are quite dark, other areas which look pink. Described is indurated by other examiners. Extremities: No pretibial edema. Mental status: The patient does not respond to touch other than during examination of his abdomen when he grimaces. Does not open his eyes to verbal stimuli. LABORATORY: Shows a white count of 4600 with 77 polymorphonuclears, 12 lymphs, 3 monocytes. Hemoglobin 9.2, down from 12.2, 27-1/2 hours previously. Platelet count 121,000 dropping quickly. Sodium 138, potassium 4.1, chloride 114, CO2 is 17, BUN 12, creatinine 0.6. Glucose 142, lactic acid is 1.7. Calcium 6.6 with an albumin 1.4, total bilirubin 1.1, AST normal at 17, ALT normal at 34, alkaline phos normal at 60. Arterial blood gases on an FiO2 of 28%, PEEP of 5, rate of 12 and a tidal volume of 550 shows pO2 92, pCO2 28, pH 7.42. Chest x-ray shows some opacification right lower lung field. ASSESSMENT: 1. Sigmoid diverticulitis with perforation with abscess status post sigmoid colectomy with descending colostomy. Abdomen seems quite tender. Currently receiving both fentanyl as well as midazolam. Pulse is a bit low. Patient seems relatively comfortable when not interfered with. Might want to back off on the midazolam a bit and see how he does. May however need a higher dose of opiates for pain. 2. Multiple electrolyte abnormalities. Calcium is low though corrects reasonably well with albumin though a calculation as well as the implications of hypercalcemia are a bit unclear. Will need to check magnesium. Currently has a mild metabolic acidosis as well as a superimposed iatrogenic respiratory alkalosis resulting in normal pH. I think we are doing reasonably well with the ventilator. No evidence for auto PEEP. 3. Fluids. Patient receiving considerable amount of fluid. Currently he is about 6-1/2 L positive in the past two days. I think it may be reasonable to back off on saline due to its hyperchloremic acidosis and use lactated Ringer's. In addition, may want to consider low-dose pressors to help with his blood pressure rather than give him fluids which between the hypoalbuminemia as well as the severe peritonitis will cause fluid problems. May benefit from albumin supplementation. In addition, perhaps dopamine with its tendency to increase pulse might be helpful. Blood pressure is doing reasonably well, however. Does not really need much supplementation at this point. Not particular acting particularly septic either. 4. Thrombocytopenia. Although not thrombocytopenic by strict definition there has been a rapid decline in his platelet count. Suspect he has DIC. 5. Anemia. No good evidence for bleeding site at this point. Possibly the result of recent surgery along with hemodilution at this point. 6. Abdominal pain. Suspect it is probably consistent with his recent perforation and surgery, however I think it might need close monitoring. PLAN: 1. Albumin IV 50 g now. 2. Discontinue normal saline using D5 lactated Ringer's. 3. If fluids continued to be quite positive might consider dopamine infusion to maintain blood pressure, increase pulse a bit, and eschew continued fluid administration. 4. Check magnesium. 5. Consider backing off a bit on midazolam and possibly utilize fentanyl for control of pain. 6. Check D-dimer and fibrinogen. 7. Chest x-ray in the morning. Might need a CT to evaluate for what is likely right-sided pleural effusion and possibly worsening abdominal process with concern for third space mesenteric edema and hypoperfusion. 8. Discussed patient with . TIME: Time spent so far in critical care 69 minutes.
[2017-03-26] MEDS: Norepineph 8,000 mCg/250 mL NS 8,000 MCG in IV Premix 1 EACH IV SCH ×2 (11:53→21:18)
[2017-03-26 12:30] LABS: D-Dimer 1.91 mg/L FEU (<0.50)
[2017-03-26] MEDS: MIDAZOLAM IV PRN (13:53)
[2017-03-26] MEDS: SODIUM CHLORIDE 0.9% IV PRN (13:53)
[2017-03-26] MEDS: fentaNYL 2,500 mCg/250 mL 2,500 MCG in IV Premix 1 EACH IV SCH ×2 (17:22→21:18)
[2017-03-26] MEDS ORDERED: Magnesium Sulf 4 Gm/100 mL D5W Premix IV ONE (19:15)
--- NOTE | 2017-03-26 19:21 | PCM.PNMED ---
Subjective Date of Service Mar 26, 2017 Subjective The patient remains intubated and sedated today with minimal response to external stimuli and inability to provide ROS Patient did not receive antibiotics until late last evening Comprehensive ROS unable to be obtained in this intubated sedated patient. Exam Vital Signs Vital Sign - Last Date Time Temp Pulse Resp B/P Pulse Ox O2 Delivery O2 Flow Rate FiO2 03/26/17 16:38 72 137/67 99 30 03/26/17 16:09 36.5 12 Mechanical Ventilator Intake and Output 03/25/17 03/25/17 03/26/17 Cumulative From/Thru 15:00 23:00 07:00 03/24/17 14:24 - 03/26/17 06:14 Intake Total 2141 ml 4000 ml 9893 ml Output Total 885 ml 660 ml 2295 ml Balance 1256 ml 3340 ml 7598 ml Intake IV Total 2101 ml 4000 ml 9853 ml Tube Irrigant 40 ml 40 ml Output Urine Total 745 ml 550 ml 1795 ml Gastric Drainage Total 75 ml 50 ml 125 ml Drainage Total 65 ml 60 ml 255 ml Estimated Blood Loss 120 ml Exam Gen: Intubated and sedated elderly man on mechanical ventilation Neck: Right IJ in place, no JVD, no scleral icterus HEENT: PERRL, no scleral icterus, does not track CV: RRR, no murmurs rubs or gallops Resp: Lungs with diffuse coarse breath sounds audible over Vent sounds Abd: No rebound guarding tenderness or masses; Ostomy in place stoma appears dark and dusky with some retraction and induration Extr: mild BL LE edema, no cyanosis or clubbing Neuro: Difficult to assess in intubated patient, no focal neurologic deficit IVs and Medications Medications Reviewed: Medications were reviewed in detail Lab and Diagnostics Item Value Date Time Red Blood Count 3.00 mil/mm3 L 03/26/17737 Mean Corpuscular Volume 93.0 fL 03/26/17737 Mean Corpuscular Hemoglobin 30.7 pg 03/26/17737 Mean Corpuscular Hemoglobin Concent 33.0 % 03/26/17737 Red Cell Distribution Width 17.0 % H 03/26/17737 Platelet Count 121 laura/L L 03/26/17737 Neutrophils (%) (Auto) 77.8 % H 03/26/17737 Lymphocytes (%) (Auto) 12.8 % L 03/26/17 0738 Monocytes (%) (Auto) 3.5 % L 03/26/17 0738 Eosinophils (%) (Auto) 1.3 % 03/26/17 0738 Basophils (%) (Auto) 0 % 03/26/17 0738 Estimat Glomerular Filtration Rate 139 mL/min 03/26/17 0738 Lactic Acid Level 1.7 mmol/L 03/26/17 0738 Calcium Level 6.6 mg/dL *L 03/26/17 0738 Magnesium Level 1.4 mg/dL L 03/26/17 0738 Total Bilirubin 1.1 mg/dL 03/26/17 0738 Aspartate Amino Transf (AST/SGOT) 17 U/L 03/26/17 0738 Alanine Aminotransferase (ALT/SGPT) 34 U/L 03/26/17 0738 Alkaline Phosphatase 60 U/L 03/26/17 0738 Total Protein 2.8 g/dL L 03/26/17 0738 Albumin 1.4 g/dL L 03/26/17 0738 Fibrinogen 577 mg/dL H 03/26/17 1140 D-Dimer 1.91 mg/L FEU H 03/26/17 1140 Result Diagram: 03/26/17 0738 03/26/17 0738 Microbiology Blood culture 2/3 bottles positive for Gram + cocci X-Rays, CTs and MRIs (03/24/17) X-RAY CHEST ONE VIEW, PORTABLE IMPRESSION: No acute pulmonary process. Dictated and approved by: Windy Larsen M.D. on 03/24/2017 at 14:05 (03/24/17) CT ANGIO CHEST PULMONARY EMBOLISM IMPRESSION: 1. No acute pulmonary embolus. 2. 4 mm groundglass nodule. No prior comparisons are available. Please see followup guidelines below. 3. Please see detailed description of abdominal findings on the associated CT of the abdomen from the same date. ADDENDUM: Fleischner Society criteria for SOLID lung nodule followup. Nodule size (mm)Low-risk patientHigh-risk [id number] follow-up neededFollow-up at 12 mo; if no change, no further follow-up>[id number] CT at 12 mo; if no change, no further follow-up needed.Initial follow-up CT at 6-12 mo, then 18-24 mo if no change. >6-8Initial follow-up CT at 6-12 mo, then 18-24 mo if no change. Initial follow-up CT at 3-6 mo, then 9-12 mo and 24 mo if no change. > 8Follow-up CT at 3, 9, 24 mo. Or PET and/or biopsy.Same as for low-risk pts. Fleischner Society criteria for SUB-SOLID lung nodule followup. Solitary pure ground-glass nodules5 mm or lessNo followup needed. >5 mm3 mo follow-up CT to confirm persistence. Then annual CT for 3 years. Part-solid nodules3 mo follow-up CT to confirm persistence. If persistent with solid component <5 mm, annual CT for at least 3 years. If solid component is 5 mm or more, biopsy or surgical resection. Consider PET-CT for lesions > 10 mm. Multiple sub-solid nodulesPure ground glass nodules [address] at 2 and 4 years. Pure ground glass nodules >5 mm without dominant lesion. [address] to confirm persistence, then annual followup CT for at least 3 years. Dominant nodule(s) with part-solid or solid component. [address] to confirm persistence. If persistent, consider biopsy or surgical resection, carlito if lesions have >5 mm solid component. Dictated and approved by: Vanessa Torres M.D. on 03/24/2017 at 16:23 (03/24/17) CT ABDOMEN AND PELVIS WITH CONTRAST IMPRESSION: 1. Perforated acute diverticulitis with intra-abdominal abscess as above. Given the location posterior to the sigmoid colon and the bladder, this is likely not amenable to percutaneous drainage. Surgical consultation recommended. 2. Multiple foci of pneumoperitoneum. It is unclear whether there is a solitary perforated region of the sigmoid colon in the region of the abscess or if there may be a second bowel perforation more proximally in the left lower quadrant.These findings were discussed with Dr. Moreno at 4:27 PM on 03/24/17. 3. 1.0 cm diameter cystic lesion within the body of the pancreas. This is new when compared with the prior study dated 09/16/16. Differential considerations include both neoplastic and nonneoplastic cystic lesions. 4. Cholelithiasis. No acute cholecystitis. 5. Severe wedge compression deformity at L1 likely pathologic in nature given the expansile lytic lesion in this vertebral body on the study dated 09/16/16. Dictated and approved by: Vanessa Torres M.D. on 03/24/2017 at 16:24 X-RAY CHEST ONE VIEW, PORTABLE IMPRESSION: New ET tube, enteric tube, and left-sided IJ CVC in expected positions. New left pleural effusion with left basilar atelectasis. Dictated by: Bang Chung M.D. on 03/25/2017 at 7:54 Approved by: Bang Chung M.D. on 03/25/2017 at 7:56 X-RAY CHEST ONE VIEW, PORTABLE IMPRESSION: Decreased lung volumes, with patchy left midlung atelectasis. Dictated by: Darius Molina M.D. on 03/26/2017 at 8:30 Approved by: Darius Molina M.D. on 03/26/2017 at 8:33 . Additional Diagnostics ABG DateTimeAnalyzed 03:52:04 -_ pH ____7.429 - 7.350 7.450 pCO2 ___28.7__ -mmHg 35.0 45.0 pO2 ___92.1__ -mmHg 69.0 116 HCO3- ___19.0__ -mmol/L 22.0 26.0 . Assessment & Plan 71 year old gentleman with a history of CAD with 2 stents, COPD, hyperlipidemia , and right-sided renal cell carcinoma (s/p nephrectomy in October 2016) currently treated with Pazopanib presenting to the CCU hypotensive and intubated status post sigmoid colectomy with descending colostomy for perforated diverticulitis. Hypotension, acute. Active -Likely stress reaction secondary to perforated bowel with associated intra- abdominal abscess. Minimal blood loss noted during surgery. -Pt hypertensive at baseline. Transferred to CCU post-op requiring pressor support. (received phenylephrine in the OR) -Received 2.5 liters in the OR, addition 1L bolus of NS on the floor -Continue norepinephrine to maintain MAP >65, titrate as tolerated -Continue IV fluids Perforated diverticulitis with intra-abdominal abscess. Present on admission. -s/p sigmoid colectomy and descending colostomy. Received IV meropenem pre-op -CT abd/pelvis as above. -Ostomy with induration and some retraction, surgery continues to follow -General surgery is recommends allowing ostomy to demarcate and declare if intervention is required over the course of the next several days. -[place] and ARCELIA drain should remain for now. -Continue Zosyn Coronary artery disease, chronic. Present on admission. Presumed stable. -Pt with prior PA and two stents. Presented with mild chest pain with negative cardiac enzymes and no acute ischemic changes noted on ECG. -Continue home simvastatin and aspirin -Continuous cardiac monitoring. Acute Respiratory Failure due to surgery and COPD, chronic. Present on admission. Presumed stable. -Pt intubated and sedated in the CCU. At presentation he did not appear to be in acute exacerbation. -Continue ventilator support, pressure support trial as able Renal cell carcinoma of right kidney, chronic. Presumed stable. -Pt is s/p nephrectomy in October 2016, currently treated with Pazopanib and dexamethasone. -CT abd/pelvis showed a renal cyst as above. Consider consult to Oncology -Resume oral medications when able -If pt remains intubated, will likely add IV steroid Diabetes mellitus, type 2, chronic. Present on admission. Presumed stable. -Serum glucose 114 at presentation, no HbA1c on file -Current outpatient therapy is Metformin 500mg PO BID -Hold Metformin -Glucose last checked 160s, continue tight glucose control. Per recommendations of general surgery if >180 use insulin drip. Hypertension, chronic. Present on admission. Active -Pt currently hypotensive and requiring pressor support with norepinephrine. -Held home antihypertensives: Lisinopril 40mg PO daily, Metoprolol succinate 50mg PO daily Hyperlipidemia, chronic. Present on admission. Presumed stable. -Continue home dose statin (Simvastatin 20mg PO HS) PRN: Acetaminophen-fever/headache/mild/moderate pain Antiemetics, as needed Bowel regimen, as needed. Disposition: Patient with serious medical condition that may require further surgical intervention, no imminent plans to extubate, anticipated DC date uncertain at this time but likely at least 1 week. Pain Evaluation: Adequate Pain Control GI Prophylaxis: H2 saw VTE Prophylaxis: Sub-Q Heparin (Unfractionated) VTE Mechanical Devices: Intermittant Pneumatic CD Resuscitation Status: CPR: Attempt Resuscitation Attending Statement The patient was seen and examined together with Dr. Perdomo on 03/26/17 and I have added additional information to the note above. Radhames Perdomo DO Mar 26, 2017 19:21 Aysha León DO Mar 26, 2017 19:47
--- NOTE | 2017-03-26 20:31 | NUR ---
BP/oxygenation/pain/sedation Low BP this morning bolus of 1L NS over 1h was started by restaurant shift supervisor RN and total of 4L per shift report- MD aware. BP stabilized after increased of levophed drip to 0.04mcg/kg/min from 0.02mcg/kg/min and remained stable. Patient was weaned off livophed drip by 1400 today- please refer to CCU flow sheet for drip titration and vitals. Patient had an episode of low oxygen saturation of 88-90% this morning at shift change. Consulted with MD -Ventilator changes by attending RT with good resolution and O2 sat increased to 96-98%. Patient had decreased lung sounds throughout right side lung werner compering to the left chest-Stat portable chest X- ray was completed- MD aware of results- no additional orders at the time. Patient appeared to have increased level of abdominal pain to the touch and with turning and repositioning- patient would grimace, he became agitated and would trying to push away from the source of his discomfort. changes in sedation/pain meds: increased fentanyl drip to 150mcg/h from 100mcg/h, also increased versed drip from 1mg/h to 2mg/h this changes seemed to resolved patients agitation and. He continued to wake up with turning and care but in more relaxed manner- continue monitoring. Low mag at 1.4, no ectopy noted consulted with magnesium rider 4GM ordered IV continue assessment.
[2017-03-27] VITALS (13 sets, daily range): BP systolic 100–131; BP diastolic 55–67; PULSE 63–108; RESP 12–13; O2SAT 97–100
[2017-03-27] MEDS: Dextrose 5% Lactated Ringer's 1,000 ML IV SCH ×2 (00:49→08:09)
[2017-03-27] MEDS: Heparin 5,000 Unit/mL Inj SUBQ SCH ×3 (00:50→16:35)
[2017-03-27] MEDS: Chlorhexidine 0.12% 15 mL Oral Solution MT SCH ×6 (00:50→21:06)
[2017-03-27] MEDS: Piperacillin-Tazo 3.375 Gm Inj 3.375 GM in Dextrose 5% Minibag Plus 50 ML IV SCH ×3 (00:50→16:34)
[2017-03-27 04:47] LABS: BASOPHILS % (AUTO) 0 % (0-3); EOSINOPHILS % (AUTO) 3.4 % (0-5); MONOCYTES % (AUTO) 1.8 % (4-12); Mean Corpuscular Volume 91.6 fL (81-100); NEUTROPHILS % (AUTO) 81.3 % (40-74); Platelet Count 97 bil/L (150-400)
--- NOTE | 2017-03-27 05:06 | ABG ---
DateTimeAnalyzed 05:00:00 -_ pH ____7.403 - 7.350 7.450 pCO2 ___30.3__ -mmHg 35.0 45.0 pO2 ___90.6__ -mmHg 69.0 116 HCO3- ___18.5__ -mmol/L 22.0 26.0 ABE ___-5.0__ -mmol/L -2.0 2.0 tHb ____9.5__ -g/dL 12.0 18.0 O2Hb ___96.2__ -% COHb ____0.6__ -% 0.0 1.5 MetHb ____0.6__ -% 0.4 1.5 sO2 ___97.4__ -% 25.0 FIO2 ___30.0__ -% PEEP ____5.0__ -cmH2O Set_RR ___12.0__ -b/min Vt __550.0__ -L Drawn By blf - Date/Time Notified____ 05:06:00 -_ Spontaneous_RR ___12.0__ -b/min Oxygen Device 1 VENTILATOR - Notified By blf - Notified Whom Shashank [place] RN -____ B 758 -mmHg tO2 ___13.0__ -Vol% Lion test N/A -
[2017-03-27 05:18] LABS: Magnesium 1.9 mg/dL (1.6-2.6); Phosphorus 1.1 mg/dL (2.5-4.9)
[2017-03-27] MEDS ORDERED: Potassium Phos (mEq) Inj 40 MEQ in Dextrose 5% 500 ML IV ONE (06:40)
[2017-03-27] MEDS ORDERED: TPN Per Pharmacist XX ONE (07:25)
[2017-03-27] MEDS: Famotidine Inj 20 MG in IV Premix 1 EACH IV SCH ×2 (08:06→21:06)
--- NOTE | 2017-03-27 08:15 | PROG NOTE ---
[address] [address] PROGRESS NOTE PATIENT: JOSAFAT SOLIS : 1945 MR#: [id number] ADMIT: 03/24/2017 JOB ID: [id number] DATE: 03/27/2017 SUBJECTIVE: The patient is seen in followup. Overnight his Levophed drip was weaned off. He has been sedated, but grimacing to abdominal palpation. Otherwise, he has been stable overnight with no acute issues. OBJECTIVE: Temperature 36.3, pulse 67, blood pressure 113/55, saturation 99% on 30% FiO2. General: He is sedated, minimally responsive this morning to stimuli. Chest he has coarse breath sounds. Heart regular rate and rhythm, no murmurs. Abdomen is nondistended, soft. His midline incision is clean with no erythema. The ARCELIA drain has serosanguineous output, output overnight was 130 cc. His colostomy in the left abdomen is congested, but viable with some very small areas of necrosis. There is no significant output into the colostomy appliance. Bowel tones are present. [place] catheter is in place with clear urine. LABORATORIES: White count is 3.9, hematocrit 27.2, platelets 97. Creatinine 0.54. Glucose 123. Lactate 2.1. Albumin 1.5. Procalcitonin of 1.58. ASSESSMENT AND PLAN: A 71-year-old man with perforated sigmoid diverticulitis with feculent peritonitis, status post exploratory laparotomy, sigmoid colectomy with colostomy, drainage of intraabdominal abscess. He is now on appropriate antibiotics. His colostomy is not perfect, but also it does not need revision at this point, and I would monitor that. I recommend starting TPN as he will likely be several more days before he is able to take meaningful intake by mouth and he is severely malnourished with albumin 1.5.
--- NOTE | 2017-03-27 08:16 | DRSVH ---
PROCEDURE: X-RAY CHEST ONE VIEW, PORTABLE ([id number]) INDICATIONS: perforated diverticulitis TECHNIQUE: One view of the chest was acquired. COMPARISON: [facility], CR, XR CHEST 1VW (PORTABLE), 03/26/2017, 7:24. FINDINGS: Surgical changes and devices: Endotracheal tube appears stable in position. Nasogastric tube redemon strated with the tip in the stomach. There is a left internal jugular catheter again noted tip in th e region of the left brachiocephalic vein. Lungs and pleura: There is a moderate-sized left pleural effusion which appears increased from the pr ior study with associated left retrocardiac consolidation or atelectasis. There is a persistent smal l right pleural effusion. There are low lung volumes. No definite pneumothorax. Mediastinum: Mediastinal contours appear within normal limits. Heart size is normal. Bones and chest wall: No suspicious bony lesions. Overlying soft tissues appear unremarkable. IMPRESSION: 1. Slightly increased moderate-sized left pleural effusion with associated left basilar consolidatio n or compressive atelectasis. Dictated by: Jan Rosales M.D. on 03/27/2017 at 8:12 Approved by: Jan Rosales M.D. on 03/27/2017 at 8:14
[2017-03-27] MEDS ORDERED: Sodium Chloride LOK Flush 10 mL Syringe IVFLUSH PRN ×2 (08:55)
[2017-03-27] MEDS: fentaNYL 2,500 mCg/250 mL 2,500 MCG in IV Premix 1 EACH IV SCH (09:59)
[2017-03-27] MEDS ORDERED: Micafungin Inj 150 MG in 0.9% Sodium Chloride 100 ML IV ONE (10:22)
[2017-03-27] MEDS ORDERED: Furosemide 10 mg/mL 2 mL Inj IVPUSH ONE (10:25)
--- NOTE | 2017-03-27 11:08 | NUR ---
NUTRITION FOLLOW UP: ASSESS: 71 YO M admitted to CCU with perforated diverticulitis, pneumoperitoneum with peritonitis, s/p exploratory laparotomy with sigmoid/descending colon resection, Diallo's and end-descending colostomy. Pt remains intubated. Plan to start TPN tonight per CCU rounds. Pt has been NPO X 3 days. Plan for PS trials per CCU rounds. PMHx: Renal cell cancer with current chemotherapy, immunosuppression, R. nephrectomy, CAD, COPD, HTN, dyslipidemia, type 2 diabetes, hiatal hernia, GI bleed. DIET: NPO. LABS: Reviewed. K+ 3.3, BUN 7, Cr 0.54, Glu 123, Lactic acid 2.1, Ca 7.3, Phos 1.1, T.bili 1.5, Alb 1.5 MEDICATIONS: Reviewed. GI: Stool via colostomy. OGT. SKIN: The ostomy site appears abnormal, does not need to be revised yet; surgery following. ANTHROPOMETRICS: Current Wt: 98.2 kg, BMI: 28.6 kg/m2. IBW: 83.64 kg (105% IBW) ESTIMATED NEEDS (GI SURGERY, VENT, POSS. WOUNDS): Calories: 7808-9625 kcal (22-25 kcal/kg BW) Protein: 132-159 g protein (1.5-1.8 g/kg BW) Fluid: Approx. 2643 mL (30 mL/kg BW) NUTRITION DIAGNOSIS: 1) Inadequate oral intake related to altered GI function, as evidenced by colectomy/colostomy, NPO status.---PERSISTS. INTERVENTION: 1) Recommend TPN, as follows to mitigate refeeding issues: Dextrose 100 g, amino acid 50 g, lipids 20 g; providing 740 kcal, 50 g protein; meeting 38% calorie, 38% protein needs. 2) Slowly increase TPN to goal of dextrose 290 g, amino acid 145 g, lipids 55 g, providing 2116 kcal, 145 g protein, sufficient to meet 100% nutrient needs. MONITOR/EVALUATE: NPO/vent status, labs, TPN tolerance/advance, GI/nutrition status. Follow per high nutrition risk guidelines.
--- NOTE | 2017-03-27 11:11 | PROG NOTE ---
[address] [address] PROGRESS NOTE PATIENT: JOSAFAT SOLIS : 1945 MR#: [id number] ADMIT: 03/24/2017 JOB ID: [id number] DATE: 03/27/2017 PULMONARY CRITICAL CARE PROGRESS NOTE: The patient is a 71-year-old man with a history of renal cell carcinoma status post nephrectomy, admitted with perforated sigmoid diverticulitis with diverticular abscess, septic shock, and respiratory failure. The patient was seen and evaluated with resident physician, Josafat Jama. please refer to his separate detailed note for additional information. INTERVAL HISTORY: Remains intubated, sedated, minimally responsive. Off all pressors. REVIEW OF SYSTEMS: Unable to obtain since the patient is intubated. PHYSICAL EXAMINATION: Vital signs reviewed. General he is intubated and sedated and not responding to voice or commands. Chest clear to auscultation. Abdomen midline incision with radha is clean and dry. He has a left lower quadrant colostomy which appears dark. LABORATORIES: Reviewed. Notable for platelets dropping to 97 from 300 on admission. Hemoglobin is 9.2. Chemistry also reviewed. Most notable for chloride of 114 and bicarb of 17. Arterial blood gas from this morning shows pH of 7.4, pCO2 of 30, bicarb of 18, and pO2 of 90. Chest x-ray reviewed and shows left basilar atelectasis, left IJ central line is not in the SVC and its tip is in the brachiocephalic. ASSESSMENT AND RECOMMENDATIONS: 1. Septic shock. 2. Sigmoid diverticulitis with perforation and diverticular abscess status post sigmoid colectomy with descending colostomy on March 24. 3. Acute hypoxic respiratory failure on mechanical ventilation since March 24. 4. Metabolic acidosis, non-gap. 5. Renal cell carcinoma status post nephrectomy, on oral chemotherapy with pazopanib. 6. Thrombocytopenia. This is a 71-year-old man with history of renal cell carcinoma status post nephrectomy, currently on oral chemotherapy presented with perforated sigmoid diverticulitis and abscess for which he underwent emergent colectomy on March 24 with a colostomy. He remains intubated on significant sedation, but has been weaned off of pressors as of yesterday afternoon. He is still quite significantly volume overloaded from his resuscitation over the last couple of days. His renal function though has been stable. I would like to try cutting back on his sedation and doing a spontaneous breathing trial today. I would also like to start diuresis with IV Lasix to get some volume off, which would better prepare him for extubation. With regards to antibiotics, he is currently on Zosyn alone, and I think he should also be on antifungal coverage. Discussed with Dr. Lozoya with infectious disease who agreed and is planning on seeing the patient formally today. His platelet count has dropped significantly and it is not clear to me if this is due to sepsis. At this point, we will just continue to watch it and reassess tomorrow. His left IJ triple-lumen has its tip in the brachiocephalic, which is not ideal but still adequate for what we are using it currently. If he needs prolonged antibiotics at some point we should switch from the IJ line to a PICC line. He is on appropriate DVT and GI prophylaxis with famotidine and heparin. CRITICAL CARE TIME: Sixty (60) minutes.
--- NOTE | 2017-03-27 11:16 | PCM.PNMED ---
Subjective Date of Service Mar 27, 2017 Subjective ICU Progress Note Patient is a 71 year old male with a history of CAD with 2 stents, COPD, hyperlipidemia, and right-sided renal cell carcinoma (s/p nephrectomy in October 2016) currently treated with Pazopanib presenting to the CCU hypotensive and intubated status post sigmoid colectomy with descending colostomy for perforated diverticulitis. Yesterday, he continued to have significant abdominal pain, requiring increased doses of fentanyl gtt. No major events overnight, pt more comfortable with increased sedation. This morning, he was sedated and intubated and unable to provide any further history. Exam Vital Signs Vital Sign - Last Date Time Temp Pulse Resp B/P Pulse Ox O2 Delivery O2 Flow Rate FiO2 03/27/17 09:36 75 110/63 98 30 03/27/17 08:00 36.5 12 Mechanical Ventilator Intake and Output 03/26/17 03/26/17 03/27/17 Cumulative From/Thru 15:00 23:00 07:00 03/24/17 14:24 - 03/27/17 06:16 Intake Total 3021 ml 1874 ml 40048 ml Output Total 645 ml 1050 ml 3990 ml Balance 2376 ml 824 ml 84810 ml Intake IV Total 2981 ml 1874 ml 71409 ml Tube Feeding 40 ml 40 ml Tube Irrigant 40 ml Output Urine Total 450 ml 850 ml 3095 ml Gastric Drainage Total 75 ml 70 ml 270 ml Drainage Total 120 ml 130 ml 505 ml Estimated Blood Loss 120 ml Exam General: Sedated and intubated, no acute distress. Head: Normocephalic, atraumatic. External ears normal. Eyes: PERRLA, EOMI. Anicteric sclerae. Mouth: Mouth normal, Mucous membranes moist/pink Neck: Neck supple with full range of motion. Chest& Lungs: Clear to auscultation bilaterally with no crackles, wheezes, or rhonchi. Cardiovascular: Regular rate/rhythm, Normal S1, Normal S2, No murmurs/rubs/ gallops Abdomen: Non-tender, hypoactive bowel sounds. Well-healing incision with ARCELIA drain in place with some serosanguineous fluid. Ostomy dark and dusky, partly retracted with some necrosis, draining dark fluid. Musculoskeletal: Normal range of motion Extremities: No cyanosis/clubbing/edema bilaterally Neurological: Sedated and intubated. Vent Settings FiO2: 30 PEEP set: 5 PEEP mes: 5 RR: 12 VT: 550 Peak: 20 Plat: 15 Lab and Diagnostics Result Diagram: 03/27/17 0440 03/27/17 0440 Microbiology Blood culture 2/3 bottles positive for Gram + cocci X-Rays, CTs and MRIs (03/24/17) X-RAY CHEST ONE VIEW, PORTABLE IMPRESSION: No acute pulmonary process. Dictated and approved by: Windy Larsen M.D. on 03/24/2017 at 14:05 (03/24/17) CT ANGIO CHEST PULMONARY EMBOLISM IMPRESSION: 1. No acute pulmonary embolus. 2. 4 mm groundglass nodule. No prior comparisons are available. Please see followup guidelines below. 3. Please see detailed description of abdominal findings on the associated CT of the abdomen from the same date. ADDENDUM: Fleischner Society criteria for SOLID lung nodule followup. Nodule size (mm)Low-risk patientHigh-risk [id number] follow-up neededFollow-up at 12 mo; if no change, no further follow-up>[id number] CT at 12 mo; if no change, no further follow-up needed.Initial follow-up CT at 6-12 mo, then 18-24 mo if no change. >6-8Initial follow-up CT at 6-12 mo, then 18-24 mo if no change. Initial follow-up CT at 3-6 mo, then 9-12 mo and 24 mo if no change. > 8Follow-up CT at 3, 9, 24 mo. Or PET and/or biopsy.Same as for low-risk pts. Fleischner Society criteria for SUB-SOLID lung nodule followup. Solitary pure ground-glass nodules5 mm or lessNo followup needed. >5 mm3 mo follow-up CT to confirm persistence. Then annual CT for 3 years. Part-solid nodules3 mo follow-up CT to confirm persistence. If persistent with solid component <5 mm, annual CT for at least 3 years. If solid component is 5 mm or more, biopsy or surgical resection. Consider PET-CT for lesions > 10 mm. Multiple sub-solid nodulesPure ground glass nodules [address] at 2 and 4 years. Pure ground glass nodules >5 mm without dominant lesion. [address] to confirm persistence, then annual followup CT for at least 3 years. Dominant nodule(s) with part-solid or solid component. [address] to confirm persistence. If persistent, consider biopsy or surgical resection, carlito if lesions have >5 mm solid component. Dictated and approved by: Vanessa Torres M.D. on 03/24/2017 at 16:23 (03/24/17) CT ABDOMEN AND PELVIS WITH CONTRAST IMPRESSION: 1. Perforated acute diverticulitis with intra-abdominal abscess as above. Given the location posterior to the sigmoid colon and the bladder, this is likely not amenable to percutaneous drainage. Surgical consultation recommended. 2. Multiple foci of pneumoperitoneum. It is unclear whether there is a solitary perforated region of the sigmoid colon in the region of the abscess or if there may be a second bowel perforation more proximally in the left lower quadrant.These findings were discussed with Dr. Moreno at 4:27 PM on 03/24/17. 3. 1.0 cm diameter cystic lesion within the body of the pancreas. This is new when compared with the prior study dated 09/16/16. Differential considerations include both neoplastic and nonneoplastic cystic lesions. 4. Cholelithiasis. No acute cholecystitis. 5. Severe wedge compression deformity at L1 likely pathologic in nature given the expansile lytic lesion in this vertebral body on the study dated 09/16/16. Dictated and approved by: Vanessa Torres M.D. on 03/24/2017 at 16:24 X-RAY CHEST ONE VIEW, PORTABLE IMPRESSION: New ET tube, enteric tube, and left-sided IJ CVC in expected positions. New left pleural effusion with left basilar atelectasis. Dictated by: Bang Chung M.D. on 03/25/2017 at 7:54 Approved by: Bang Chung M.D. on 03/25/2017 at 7:56 X-RAY CHEST ONE VIEW, PORTABLE IMPRESSION: Decreased lung volumes, with patchy left midlung atelectasis. Dictated by: Darius Molina M.D. on 03/26/2017 at 8:30 Approved by: Darius Molina M.D. on 03/26/2017 at 8:33 . Additional Diagnostics ABG DateTimeAnalyzed 03:52:04 -_ pH ____7.429 - 7.350 7.450 pCO2 ___28.7__ -mmHg 35.0 45.0 pO2 ___92.1__ -mmHg 69.0 116 HCO3- ___19.0__ -mmol/L 22.0 26.0 . Assessment & Plan Patient is a 71 year old gentleman with a history of CAD with 2 stents, COPD, hyperlipidemia, and right-sided renal cell carcinoma (s/p nephrectomy in October 2016) currently treated with Pazopanib presenting to the CCU hypotensive and intubated status post sigmoid colectomy with descending colostomy for perforated diverticulitis. Acute hypoxic respiratory failure - Pt intubated and sedated in the OR, remains on mechanical ventilation in part due to COPD. At presentation he did not appear to be in acute exacerbation. Doing fairly well on the ventilator without increasing O2 needs or ventilatory support. Currently maintaining small degree of respiratory alkalosis to compensate for metabolic acidosis. -Continue ventilator support, pressure support trial today. - Wean sedation as tolerated Perforated diverticulitis with intra-abdominal abscess, s/p sigmoid colectomy and descending colostomy - Pt has been experiencing significant abdominal pain postoperatively, requiring increasing amounts of fentanyl. Stoma appears dusky and slightly necrotic; Surgery is aware and does not see need for revision yet. Will continue to monitor. - Wean fentanyl and midazolam as tolerated - Received IV meropenem pre-operatively. Will continue Zosyn at this time. Hypotension, acute. Resolved. - Pt received aggressive fluid resuscitation yesterday, total 10 L positive. No longer requiring pressor support with norepi, as he was weaned off yesterday and maintaining MAP around 70s-80s. As he is improving and requiring less fluids , will start TPN in the evening and wean off IV fluids. He does appear somewhat fluid overloaded today so we will diurese as tolerated. - Discontinue fluids - Start TPN in evening - Lasix 20 mg IV now, may repeat dose in evening if tolerated Thrombocytopenia, acute. - Platelets decreased from 303 on admission to 97 today. In part due to hemodilution from aggressive hydration, but the decrease in platelets exceeds what would be expected. Given the severity of drop and concomitant drop in Hb from 16 to 9.2 since admission, there was some concern for DIC. This was ruled out as D-dimer was elevated but fibrinogen was also elevated. DDx includes chronic DIC given recent history of malignancy vs thrombocytopenia in the setting of acute sepsis vs HIT. Will monitor platelets at this time and consider further workup if platelet count continues to drop. - Monitor CBC Hyperchloremic non-gap metabolic acidosis, acute. - Anion gap 10. Cl 110. Bicarb low this AM at 17, likely secondary to aggressive hydration with NS over the last 2 days. Compensating with hyperventilation on the ventilator. pH 7.4 at this time with pCO2 of 30.3 and bicarb 18.5. - Switched NS to LR - Continue mechanical ventilation Prophylaxis - Pt has hx of renal cell carcinoma on pazopanib PO, with recent ostomy placement, and will be starting TPN this evening. At significant risk for fungal infection. Will start micafungin. - Fungitell and fungal blood cultures - Micafungin IV daily - GI prophylaxis: Famotidine - DVT prophylaxis: SQ heparin GI Prophylaxis: H2 saw VTE Prophylaxis: Sub-Q Heparin (Unfractionated) VTE Mechanical Devices: Intermittant Pneumatic CD Resuscitation Status: CPR: Attempt Resuscitation Attending Statement I have seen and examined this patient with the resident physician. Vital signs , labs, imaging have been reviewed. I agree with the assessment and plan above. Please refer to my separately dictated progress note for any modifications to above. Eloise Linder M.D. Pulmonary and Critical Care medicine Pager [phone] Humberto Jama Mar 27, 2017 11:16 Eloise Linder MD Mar 27, 2017 13:31
--- NOTE | 2017-03-27 11:24 | PCM.PHAPRO ---
Progress tpn PARENTERAL NUTRITION ORDERS 1 24-Mar-17 Standard Hang Time: 2100 Substrates Total kcal: 740 AMINO ACIDS 50 g DEXTROSE 100 g Total Volume (mL): 1800 LIPIDS 20 g Sterile Water for Injection mL To Infuse Over (hrs): 24 Total Volume 1800 mL At at a rate of (mL/hr): 75 Additives Sodium Chloride 40 mEq "typical" daily requirements Sodium Acetate 80 mEq Sodium 50-120mEq Potassium Chloride 40 mEq Potassium 60-120mEq Potassium Phosphate 40 mEq Phosphate 20-40mEq Calcium Gluconate 8 mEq Magnesium 8-32mEq Magnesium Sulfate 16 mEq Calcium 9-22mEq Acetate* 80-120mEq Chloride* 80-120mEq Regular Insulin 0 units *Depending on acid-base status Famotidine 0 mg Multivitamins 1 std dose Insulin Regimen Trace Elements 1 std dose none Thiamine mg Regular Low Intensity Subcut Folic Acid mg Regular Medium Intensity Subcut Ascorbic Acid mg Regular High Intensity Subcut Regular Insulin Infusion Other: Special Instructions: To be infused via central line only. For delay or inturruption of TPN contact the pharmacist for alternative replacement solution. Signature Date: Humberto Saldivar [address] [facility] Phi Marquez Pharm D Mar 27, 2017 11:24
--- NOTE | 2017-03-27 12:08 | NUR ---
Inpatient Wound and Ostomy Nurse Patient seen for Pressure Ulcer Protocol and ostomy assessment. Heels and elbows are blanchable and without bogginess. Primary RN states that no nonblanchable areas on posterior have been observed and no open areas noted. Primary RN will alert CWON RN if any posterior issues are noted at next turn. Staff are following appropriate pressure injury protocol and patient is on appropriate surface. Ostomy output is mainly sanguinous, nearly black, thin consistency but thicker at os. Stoma is black, flaccid with low tension but appears edematous. Strong odor of necrosis is noted when pouch was removed. Patient flinched when pouch was reattached. MD aware. CWON will follow patient and is available for ostomy teaching once patient is no longer intubated and is alert. Addendum: 03/27/17 at 1214 by LAKEISHA HILLS RN Os is noted to be flush at subcu level, retracted at RUQ margin.
--- NOTE | 2017-03-27 16:58 | NUR ---
Remains on vent support. Grimaces to abdominal palpation, turning/repositioning, Fentanyl bolus' effective for perceived pain. Afebrile. BP stable. Sinus rhythm, increased HR throughout the shift. UOP 3200ml via patterson cath, Lasix given this morning. BMP pending. No output from OGT to suction. Scant dark brown/red fluid from colostomy. Stoma is dark brownish-red, foul smelling. ARCELIA drained 145mls sero-sang. Blood sugars within goal. TPN to start when available. No family/visitors today. Appears restful and in no distress.
--- NOTE | 2017-03-27 17:25 | NUR ---
Social Work: Multidisciplinary Rounds/Attempted Assessment D: Pt discussed in multidisciplinary rounds. Pt remains in CCU,vented with no anticipated timeframe for extubation. Discharge needs unknown at this time. AUTO DAMAGE ESTIMATOR attempted to meet with the patient's at bedside to complete initial assessment. not present. AUTO DAMAGE ESTIMATOR left a voicemail for her requesting return phone call. A: Pt who is from [place]. P: Evolving; AUTO DAMAGE ESTIMATOR to continue to follow to assess for d/c needs and to continue to attempt follow up with the patient's family to complete assessment. [facility]
--- NOTE | 2017-03-27 19:37 | PCM.PNMED ---
Subjective Date of Service Mar 27, 2017 Subjective Subjective: Patient continues on the vent, unable to participate in his care at this time. Events Overnight: No acute events overnight. ROS: Due to the patient being comatose, a review of systems was unable to be obtained. Exam Vital Signs Vital Sign - Last Date Time Temp Pulse Resp B/P Pulse Ox O2 Delivery O2 Flow Rate FiO2 03/27/17 16:00 37.0 98 13 109/67 98 03/27/17 15:53 30 03/27/17 12:00 Mechanical Ventilator Intake and Output 03/26/17 03/26/17 03/27/17 Cumulative From/Thru 15:00 23:00 07:00 03/24/17 14:24 - 03/27/17 06:16 Intake Total 3021 ml 1874 ml 50087 ml Output Total 645 ml 1050 ml 3990 ml Balance 2376 ml 824 ml 70777 ml IV Total 2981 ml 1874 ml 03676 ml Tube Feeding 40 ml 40 ml Tube Irrigant 40 ml Output Urine Total 450 ml 850 ml 3095 ml Gastric Drainage Total 75 ml 70 ml 270 ml Drainage Total 120 ml 130 ml 505 ml Estimated Blood Loss 120 ml Exam General: Sedated and intubated, no acute distress HEENT: Normocephalic, atraumatic. External ears without defect. Pupils equal, round, and reactive to light and accommodation. Anicteric sclerae, moist conjunctivae. IJ in place Cardiovascular: Regular rate and rhythm with no murmurs, rubs, or gallops appreciated Pulmonary: Patient is currently on the ventilator, breath sounds are coarse due to ventilation status. Abdomen: Bowel tones present. Soft, nondistended, indurated and retracted ostomy with some necrosis, draining dark fluid. Well-healing incision closed with radha, ARCELIA drain in place. Extremities: No clubbing, cyanosis, edema Skin: Normal temperature, turgor, and texture; no rash, ulcers, or subcutaneous nodules appreciated. Neurological: Unable to assess Normal tone, and bulk. Psychiatric: Unable to assess IVs and Medications IV Fluids 1900 mL normal saline delivered with IV medications. Medications Reviewed: Medications were reviewed in detail Medications High-risk medications include: Fentanyl Lab and Diagnostics Result Diagram: 03/27/17 0440 03/27/17 1640 Microbiology Blood culture 2/3 bottles positive for Gram + cocci X-Rays, CTs and MRIs (03/24/17) X-RAY CHEST ONE VIEW, PORTABLE IMPRESSION: No acute pulmonary process. Dictated and approved by: Windy Larsen M.D. on 03/24/2017 at 14:05 (03/24/17) CT ANGIO CHEST PULMONARY EMBOLISM IMPRESSION: 1. No acute pulmonary embolus. 2. 4 mm groundglass nodule. No prior comparisons are available. Please see followup guidelines below. 3. Please see detailed description of abdominal findings on the associated CT of the abdomen from the same date. ADDENDUM: Fleischner Society criteria for SOLID lung nodule followup. Nodule size (mm)Low-risk patientHigh-risk [id number] follow-up neededFollow-up at 12 mo; if no change, no further follow-up>[id number] CT at 12 mo; if no change, no further follow-up needed.Initial follow-up CT at 6-12 mo, then 18-24 mo if no change. >6-8Initial follow-up CT at 6-12 mo, then 18-24 mo if no change. Initial follow-up CT at 3-6 mo, then 9-12 mo and 24 mo if no change. > 8Follow-up CT at 3, 9, 24 mo. Or PET and/or biopsy.Same as for low-risk pts. Fleischner Society criteria for SUB-SOLID lung nodule followup. Solitary pure ground-glass nodules5 mm or lessNo followup needed. >5 mm3 mo follow-up CT to confirm persistence. Then annual CT for 3 years. Part-solid nodules3 mo follow-up CT to confirm persistence. If persistent with solid component <5 mm, annual CT for at least 3 years. If solid component is 5 mm or more, biopsy or surgical resection. Consider PET-CT for lesions > 10 mm. Multiple sub-solid nodulesPure ground glass nodules [address] at 2 and 4 years. Pure ground glass nodules >5 mm without dominant lesion. [address] to confirm persistence, then annual followup CT for at least 3 years. Dominant nodule(s) with part-solid or solid component. [address] to confirm persistence. If persistent, consider biopsy or surgical resection, carlito if lesions have >5 mm solid component. Dictated and approved by: Vanessa Torres M.D. on 03/24/2017 at 16:23 (03/24/17) CT ABDOMEN AND PELVIS WITH CONTRAST IMPRESSION: 1. Perforated acute diverticulitis with intra-abdominal abscess as above. Given the location posterior to the sigmoid colon and the bladder, this is likely not amenable to percutaneous drainage. Surgical consultation recommended. 2. Multiple foci of pneumoperitoneum. It is unclear whether there is a solitary perforated region of the sigmoid colon in the region of the abscess or if there may be a second bowel perforation more proximally in the left lower quadrant.These findings were discussed with Dr. Moreno at 4:27 PM on 03/24/17. 3. 1.0 cm diameter cystic lesion within the body of the pancreas. This is new when compared with the prior study dated 09/16/16. Differential considerations include both neoplastic and nonneoplastic cystic lesions. 4. Cholelithiasis. No acute cholecystitis. 5. Severe wedge compression deformity at L1 likely pathologic in nature given the expansile lytic lesion in this vertebral body on the study dated 09/16/16. Dictated and approved by: Vanessa Torres M.D. on 03/24/2017 at 16:24 X-RAY CHEST ONE VIEW, PORTABLE IMPRESSION: New ET tube, enteric tube, and left-sided IJ CVC in expected positions. New left pleural effusion with left basilar atelectasis. Dictated by: Bang Chung M.D. on 03/25/2017 at 7:54 Approved by: Bang Chung M.D. on 03/25/2017 at 7:56 X-RAY CHEST ONE VIEW, PORTABLE IMPRESSION: Decreased lung volumes, with patchy left midlung atelectasis. Dictated by: Darius Molina M.D. on 03/26/2017 at 8:30 Approved by: Darius Molina M.D. on 03/26/2017 at 8:33 . Additional Diagnostics ABG DateTimeAnalyzed 03:52:04 -_ pH ____7.429 - 7.350 7.450 pCO2 ___28.7__ -mmHg 35.0 45.0 pO2 ___92.1__ -mmHg 69.0 116 HCO3- ___19.0__ -mmol/L 22.0 26.0 . Assessment & Plan 71 year old gentleman with a history of CAD with 2 stents, COPD, hyperlipidemia , and right-sided renal cell carcinoma (s/p nephrectomy in October 2016) currently treated with Pazopanib presenting to the CCU hypotensive and intubated status post sigmoid colectomy with descending colostomy for perforated diverticulitis. Hypotension, acute. Active -Likely stress reaction secondary to perforated bowel with associated intra- abdominal abscess. Minimal blood loss noted during surgery. -Pt hypertensive at baseline. Transferred to CCU post-op requiring pressor support. (received phenylephrine in the OR) -Vitals currently stable off pressers -IV fluids discontinued, TPN started on 03/27, start IV Lasix for fluid overload. Perforated diverticulitis with intra-abdominal abscess. Present on admission, active -s/p sigmoid colectomy and descending colostomy. Received IV meropenem pre-op -CT abd/pelvis as above. -Ostomy with induration and some retraction, surgery continues to follow -General surgery is recommends allowing ostomy to demarcate and declare if intervention is required over the course of the next several days. -[place] and ARCELIA drain should remain for now. -Continue Zosyn - Consult ID (Dr. Lozoya) Coronary artery disease, chronic. Present on admission. stable. -Pt with prior ME and two stents. Presented with mild chest pain with negative cardiac enzymes and no acute ischemic changes noted on ECG. -Continue home simvastatin and aspirin -Continuous cardiac monitoring. Acute Respiratory Failure due to surgery and COPD, chronic. Present on admission. stable. -Pt intubated and sedated in the CCU. At presentation he did not appear to be in acute exacerbation. -Continue ventilator support, pressure support trial as able -Continue fentanyl for sedation, wean as tolerated -Patient should likely remain intubated regardless of progress due to likely return to OR for revised meant of ostomy. Renal cell carcinoma of right kidney, chronic. Presumed stable. -Pt is s/p nephrectomy in October 2016, currently treated with Pazopanib and dexamethasone. -CT abd/pelvis showed a renal cyst as above. Consider consult to Oncology -Resume oral medications when able -If pt remains intubated, will likely add IV steroid Diabetes mellitus, type 2, chronic. Present on admission. Presumed stable. -Serum glucose 114 at presentation, no HbA1c on file -Current outpatient therapy is Metformin 500mg PO BID -Hold Metformin -Glucose last checked 160s, continue tight glucose control. Per recommendations of general surgery if >180 use insulin drip. Hypertension, chronic. Present on admission. Stable -Pt currently maintaining blood pressures without the use of pressors -Blood pressures remain low, but stable -Held home antihypertensives: Lisinopril 40mg PO daily, Metoprolol succinate 50mg PO daily Hyperlipidemia, chronic. Present on admission. Presumed stable. -Continue home dose statin (Simvastatin 20mg PO HS) GI Prophylaxis: H2 saw VTE Prophylaxis: Sub-Q Heparin (Unfractionated) VTE Mechanical Devices: Intermittant Pneumatic CD Resuscitation Status: CPR: Attempt Resuscitation Attending Statement The patient was seen and examined together with Dr. Suggs on 03/27/17 and I have added additional information to the note above. Mode Suggs DO Mar 27, 2017 19:37 Aysha León DO Mar 28, 2017 20:12
[2017-03-27] MEDS: 0.9% Sodium Chloride 500 ML IV PRN (19:55)
[2017-03-27] MEDS: Total Parenteral Nutrition 1 BAG IV SCH (21:06)
[2017-03-27] MEDS: TPN Per Pharmacist XX SCH (22:02)
--- NOTE | 2017-03-27 22:34 | CONS ---
[address] [address] CONSULTATION REPORT PATIENT: JOSAFAT SOLIS : 1945 MR#: [id number] ADMIT: 03/24/2017 JOB ID: [id number] DATE OF SERVICE: 03/27/2017 INFECTIOUS DISEASE CONSULTATION: I thank Dr. Linder for this timely consult. REASON FOR CONSULTATION: Perforated diverticulitis with abscess formation status post status post surgical intervention. INTERVAL HISTORY: The patient is an unfortunate 71-year-old gentleman with underlying medical problems including renal cell carcinoma, who underwent nephrectomy just a few months ago and is on the immunosuppressive drug pazopanib for continued treatment of renal cell carcinoma. He also has underlying coronary artery disease, COPD and diabetes. He was doing reasonably well with his oral treatment for renal cell CA until about three days before his admission, which eventually occurred on March 24. Medical attention was summoned to the house because the patient had syncope, but the patient and his relate that for about three days prior to this syncopal episode on March 24 he had been complaining of left-sided abdominal pain which radiated to the back, along with chills and weakness. When paramedics found the patient, his blood pressure was only 60 systolic and he required hydration as well as pressor agents to improve his blood pressure. He was subsequently found by CT scanning to have a perforated sigmoid diverticulitis and was taken to surgery on March 24 in the evening by Dr. Sagastume. At that time, it was found that he had a perforated sigmoid colon with feculent peritonitis and a large abscess in the pelvis. The patient had formation of a colostomy and the abscess was drained during the surgery. Postoperatively, the patient has improved somewhat, at least with respect to his hemodynamics, and though he remains intubated and sedated his vasopressor agents have been successfully weaned and he remains in the ICU but without vasopressor agents at this point. His urine output is well maintained at this point. The patient obviously is intubated and sedated, there is no additional history from him. There are no family members available for any more history, though I did discuss the case in detail with the ICU nurse. PAST MEDICAL HISTORY: 1. Renal cell carcinoma, status post nephrectomy early 2016, now on pazopanib. 2. Coronary artery disease. 3. COPD. 4. Hyperlipidemia. 5. Hypertension. 6. Type 2 diabetes. 7. Status post appendectomy. SOCIAL HISTORY: The patient is a nondrinker who is said to have quit smoking seven years ago. FAMILY HISTORY: Not available from this intubated, sedated patient. REVIEW OF SYSTEMS: Not available from this intubated, sedated patient. PHYSICAL EXAMINATION: Reveals an afebrile, intubated gentleman. Note that he spiked to 39 degrees early yesterday morning and has now been afebrile 24 hours. Temp 36.5, pulse 90, blood pressure 101/62, saturating 98% on 30 FiO2. Examination of the head: No trauma or temporal wasting. Eyes with about 3 mm pupils bilaterally. No conjunctivitis or scleral icterus. Nose is normal. Oral endotracheal tube, orogastric tube in normal position. Neck is supple. No cervical adenopathy or JVD is noted. Lungs with a few crackles at the bases but relatively clear. Cardiac tones regular rate and rhythm without appreciable murmur. The abdomen is notable for the incision which is well approximated, as well as the colostomy and a single ARCELIA drain. The area around the colostomy has a rather feculent smell to it. The patient's abdomen is firm and the only time he seems to move during the exam is when I push very gently on his abdomen and the patient grimaced, otherwise, no reaction from the patient during any part of this exam. The patient has a [place] catheter present. Penis and scrotum appear normal. His extremities are without evidence of significant edema, nor is there any cellulitis or evidence of synovitis with respect to any of his major joints. Neurologically, I cannot evaluate the patient as he is intubated and sedated. LABORATORIES: Include white blood count 9500 with left shift when he came in, now 3900 with 81% segs. Platelet count is dropping to 97,000. Creatinine 0.54. Lactate is actually climbing, it is 2.5 today, it had been less than 2 on March 25 and March 26. Liver function tests are normal. Procalcitonin 1.586. Urine without white cells. Micro includes 2/4 blood cultures from admission which interestingly grew coag-negative staph, one bottle from each set drawn, and these are both Staph hominis and both susceptible to oxacillin and/or standard antistaphylococcal antibiotics, including Zosyn he has been receiving. Followup blood cultures are negative and MRSA screen is negative. IMAGING: Includes his initial abdominal CT which showed perforated diverticulitis with intra-abdominal abscess, as well as pneumoperitoneum, and a 1 cm lesion within the pancreas which could represent neoplastic change. He also has an L1 wedge compression fracture which may be pathologic. The patient's chest x-ray from today was reviewed. It shows left-sided pleural effusion with probable atelectasis. IMPRESSION: This is an unfortunate gentleman who has underlying cardiac, as well as pulmonary disease, and was diagnosed with renal cell cancer earlier this year. He now presents with septic shock due to a perforated diverticulum with abscess formation. He has survived the initial septic shock and is now off vasopressor agents, but remains critically ill in the intensive care unit with dropping platelet count and elevated lactate. Whether he has additional untreated infection or may require more surgery remains unclear at this time. Also of concern, more in the future, is the possible presence of a met in his spine, as well as possibility of a second primary occurring in his pancreas RECOMMENDATIONS: 1. I agree with the Zosyn the patient has been receiving so far as excellent broad-spectrum intra-abdominal coverage for patient who has underlying immunosuppression. 2. I would add to that micafungin, which we discussed on rounds, in a dose of 150 mg once a day. 3. Will continue to closely follow this the patient with you. Particular attention to the lactate, as well as the platelet count and possible left shift in the white count. 4. Following procalcitonin level may also be valuable in this case in terms of a possible early warning sign for progressive sepsis. 5. Note that this case was discussed extensively during ICU rounds. NAV
[2017-03-28] VITALS (17 sets, daily range): BP systolic 90–129; BP diastolic 59–76; PULSE 89–110; RESP 4–19; O2SAT 92–99
[2017-03-28] MEDS: Chlorhexidine 0.12% 15 mL Oral Solution MT SCH ×6 (00:17→20:02)
[2017-03-28] MEDS: Heparin 5,000 Unit/mL Inj SUBQ SCH ×3 (00:18→16:44)
[2017-03-28] MEDS: Piperacillin-Tazo 3.375 Gm Inj 3.375 GM in Dextrose 5% Minibag Plus 50 ML IV SCH ×3 (00:18→16:45)
[2017-03-28] MEDS: fentaNYL 2,500 mCg/250 mL 2,500 MCG in IV Premix 1 EACH IV SCH (05:20)
[2017-03-28 05:37] LABS: BASOPHILS % (AUTO) 0.3 % (0-3); EOSINOPHILS % (AUTO) 3.4 % (0-5); MONOCYTES % (AUTO) 3.4 % (4-12); Mean Corpuscular Hemoglobin 30.5 pg (27.0-35.0); Mean Corpuscular Volume 89.7 fL (81-100); NEUTROPHILS % (AUTO) 80.3 % (40-74); Platelet Count 103 bil/L (150-400)
[2017-03-28] MEDS: MIDAZOLAM IV PRN (05:38)
[2017-03-28] MEDS: SODIUM CHLORIDE 0.9% IV PRN (05:38)
--- NOTE | 2017-03-28 05:39 | ABG ---
DateTimeAnalyzed 05:33:00 -_ pH ____7.478 - 7.350 7.450 pCO2 ___28.3__ -mmHg 35.0 45.0 pO2 102 -mmHg 69.0 116 HCO3- ___20.8__ -mmol/L 22.0 26.0 ABE ___-1.6__ -mmol/L -2.0 2.0 tHb ___10.2__ -g/dL 12.0 18.0 O2Hb ___96.6__ -% COHb ____0.7__ -% 0.0 1.5 MetHb ____0.7__ -% 0.4 1.5 sO2 ___98.0__ -% 25.0 FIO2 ___30.0__ -% PEEP ____5.0__ -cmH2O Set_RR ___12.0__ -b/min Vt __550.0__ -L Drawn By blf - Date/Time Notified____ 05:39:00 -_ Spontaneous_RR ___12.0__ -b/min Oxygen Device 1 VENTILATOR - Notified By blf - Notified Whom Lainey Radha RN -__ B 756 -mmHg tO2 ___14.0__ -Vol% Lion test N/A -
--- NOTE | 2017-03-28 06:33 | NUR ---
P) Pain/fever Pt. lightly sedated, grimaces with any care and attempting to strike caregivers whenever restraints are loosened, appear to be in pain. Cardiac rhythm sinus/sinus tach, febrile, T-max 38.1c orally. Lungs coarse with minimal secretions, ARCELIA put out sero-sanguinous drainage. I) Passive cooling, meds per 's orders, , turning q2h and floating heels. Titrating pain and sedation meds. E) Resting quietly with eyes closed.
--- NOTE | 2017-03-28 08:10 | DRSVH ---
PROCEDURE: X-RAY CHEST ONE VIEW, PORTABLE ([id number]) INDICATIONS: ICU ventilator TECHNIQUE: One view of the chest was acquired. COMPARISON: [facility], CR, XR CHEST 1VW (PORTABLE), 03/27/2017, 5:05. FINDINGS: Surgical changes and devices: Stable ET and enteric tubes. Left IJ CVC with tip in the left brachioce phalic vein. Lungs and pleura: Stable pleural effusions left greater than right with associated atelectasis or inf iltrate densest in the left lower lobe. Mediastinum: Mediastinal contours appear normal. Heart size is normal. Bones and chest wall: No suspicious bony lesions. Overlying soft tissues appear unremarkable. IMPRESSION: Stable pleural effusions with associated atelectasis or infiltrates left greater than rig ht. Stable support devices. Dictated by: Bang Chung M.D. on 03/28/2017 at 8:07 Approved by: Bang Chung M.D. on 03/28/2017 at 8:09
[2017-03-28] MEDS ORDERED: Furosemide 10 mg/mL 2 mL Inj IVPUSH ONE (08:15)
--- NOTE | 2017-03-28 08:33 | PROG NOTE ---
[address] [address] PROGRESS NOTE PATIENT: JOSAFAT SOLIS : 1945 MR#: [id number] ADMIT: 03/24/2017 JOB ID: [id number] DATE: 03/28/2017 REASON FOR FOLLOW UP: Perforated sigmoid colon secondary to diverticulitis with fecal soilage of the perineum now status post surgery which occurred on March 24. INTERVAL HISTORY: Overnight, the patient has been relatively stable. He remains ventilated in the ICU and has a respiratory alkalosis at this point. He does not respond as he is sedated on the ventilator, but efforts are being made to lighten that somewhat today. This case was discussed at the bedside with Respiratory Therapy, as well as the ICU team. PHYSICAL EXAMINATION: Reveals a gentleman who is currently afebrile 37.3, yesterday evening, it he was 38.1, but has not had any higher fevers. Pulse is in the 90s, respiratory rate is ventilator dependent, 30% FiO2 at this point, saturating 92%. Blood pressure 90/62 without benefit of vasopressors. His eyes are unremarkable. No scleral icterus noted. His oral endotracheal tube/orogastric tube in good position. Minimal secretions. Lungs with a few coarse rhonchi bilaterally. Cardiac tones without new murmur. Abdomen is the only thing which provokes any response when he is examined. When the patient's abdomen is palpated, even moderately, the patient winces, but otherwise there is no evidence of response. His incision seems to be well-approximated and his colostomy in good position. A new [place] catheter is also present. No penile or scrotal abnormalities are noted. No skin rash noted. LABORATORY DATA: Labs include a white count of 3800 which is stable, 80% segs, creatinine 0.52, total bilirubin 1.9, albumin 1.4. Urinalysis without white cells. Micro studies include the positive coag-negative staph, one bottle from each of two sets drawn on admission. Interestingly these are both Staphylococcus hominis and both oxacillin susceptible. MRSA screen negative. Blood cultures from the are negative. IMAGING: From today includes a chest x-ray, which I reviewed and compared to prior films. It shows a decreasing left-sided pleural effusion with some possible atelectasis there. IMPRESSION: This patient seems stable today and recall is requiring relatively minimal ventilator support. At this point, it would seem we have adequate control of his infection status post surgery and with the broad-spectrum postoperative antibiotics. RECOMMENDATIONS: 1. I agree with Zosyn, as well as micafungin. 2. The micafungin dose can be 100 mg a day going forward. 3. I would continue these antibiotics for a period of at least a few days until the patient is stable and out of the ICU off the ventilator. 4. Note that I will be out of town the next six days returning to work on April 04. Please do not hesitate to text or call me if there are questions about this or any other patient.
--- NOTE | 2017-03-28 08:33 | PROG NOTE ---
[address] [address] PROGRESS NOTE PATIENT: JOSAFAT SOLIS : 1945 MR#: [id number] ADMIT: 03/24/2017 JOB ID: [id number] DATE: 03/28/2017 SUBJECTIVE: The patient is seen in followup. Overnight there was a small amount of stool from his colostomy and there was leakage around the appliance, so the appliance was changed by the nurse this morning. He was also febrile overnight to 38.1. He does seem agitated with manipulation of his colostomy. OBJECTIVE: Current temperature 37.3, pulse 92, blood pressure 109/62, saturation 99% on 30% FiO2. General: He is sedated, but responds to painful stimuli. Chest has coarse breath sounds. Heart regular rate and rhythm, no murmurs. Abdomen is soft, nondistended. His midline incision is well approximated with no drainage. The ARCELIA drain has serosanguineous output, 275 cc yesterday. The colostomy appliance was removed. There is superficial necrosis at the mucocutaneous junction, but the deeper portions of the colon mucosa seemed to be viable. There is no erythema of the surrounding skin. LABORATORIES: White count 3.8, hematocrit 29.7, platelets 103. Creatinine 0.52. Glucose 122. Albumin 1.4. ASSESSMENT AND PLAN: A 71-year-old man with perforated sigmoid diverticulitis with feculent peritonitis status post Diallo's procedure. The colostomy does not look perfect, but I do believe it will be viable without reintervention. I have recommended TPN for his protein calorie malnutrition. Broad-spectrum antibiotics should be continued. The remainder of the care per the hospitalist team. I will continue to follow closely.
[2017-03-28] MEDS: Micafungin Inj 100 MG in 0.9% Sodium Chloride 100 ML IV SCH (08:40)
[2017-03-28 08:45] LABS: Magnesium 1.9 mg/dL (1.6-2.6); Phosphorus 3.1 mg/dL (2.5-4.9)
[2017-03-28] MEDS: Famotidine Inj 20 MG in IV Premix 1 EACH IV SCH ×2 (08:46→20:02)
[2017-03-28] MEDS ORDERED: Albumin 25% 50 GM in IV Premix 1 EACH IV ONE (08:55)
--- NOTE | 2017-03-28 10:59 | NUR ---
NUTRITION FOLLOW UP: ASSESS: 71 YO M admitted to CCU with perforated diverticulitis, pneumoperitoneum with peritonitis, s/p exploratory laparotomy with sigmoid/descending colon resection, Diallo's and end-descending colostomy. Pt remains intubated. TPN started last night, appears well tolerated so far. Pt has been NPO X 4 days. PMHx: Renal cell cancer with current chemotherapy, immunosuppression, R. nephrectomy, CAD, COPD, HTN, dyslipidemia, type 2 diabetes, hiatal hernia, GI bleed. DIET: NPO. TPN: Dex 100 g, AA 50 g, Lipids 20 g providing 740 kcal, 50 g protein. LABS: Reviewed.BUN 7, Cr 0.52, Glu 122, Ca 7.5, T.bili 1.9, Alb 1.4, Phos/Mg/K+ WNL MEDICATIONS: Reviewed. Fentanyl, Albumin. GI: Stool via colostomy. OGT. SKIN: The ostomy site appears abnormal, does not need to be revised yet; surgery following. ANTHROPOMETRICS: Current Wt: 92.9 kg, BMI: 27.0 kg/m2. IBW: 83.64 kg (105% IBW) ESTIMATED NEEDS (GI SURGERY, VENT, POSS. WOUNDS): Calories: 0328-1869 kcal (22-25 kcal/kg BW) Protein: 132-159 g protein (1.5-1.8 g/kg BW) Fluid: Approx. 2643 mL (30 mL/kg BW) NUTRITION DIAGNOSIS: 1) Inadequate oral intake related to altered GI function, as evidenced by colectomy/colostomy, NPO status.---PERSISTS. INTERVENTION: 1) Recommend continuing current TPN today. If tolerated, recommend advancing tomorrow (03/29) to dextrose 170 g, amino acid 85 g , lipids 40 g to provide 1318 kcal, 85 g protein; meeting 68% calorie, 64% protein. 2) Slowly increase TPN to goal of dextrose 290 g, amino acid 145 g, lipids 55 g, providing 2116 kcal, 145 g protein, sufficient to meet 100% nutrient needs. MONITOR/EVALUATE: NPO/vent status, labs, TPN tolerance/advance, GI/nutrition status. Follow per high nutrition risk guidelines.
--- NOTE | 2017-03-28 11:35 | ABG ---
DateTimeAnalyzed 11:28:00 -_ pH ____7.418 - 7.350 7.450 pCO2 ___35.0__ -mmHg 35.0 45.0 pO2 ___80.4__ -mmHg 69.0 116 HCO3- ___22.2__ -mmol/L 22.0 26.0 ABE ___-1.4__ -mmol/L -2.0 2.0 tHb ____9.6__ -g/dL 12.0 18.0 O2Hb ___94.7__ -% COHb ____0.9__ -% 0.0 1.5 MetHb ____0.5__ -% 0.4 1.5 sO2 ___96.0__ -% 25.0 FIO2 ___30.0__ -% PRVC 450 - PEEP ____5.0__ -cmH2O Set_RR ___10.0__ -b/min Vt __450.0__ -L Drawn By NB - Date/Time Notified____ 11:35:00 -_ Spontaneous_RR ___13.0__ -b/min Oxygen Device 1 VENTILATOR - Notified By nb - Notified Whom ___Dr. Parimi - B 757 -mmHg tO2 ___12.9__ -Vol% Lion test N/A -
--- NOTE | 2017-03-28 13:19 | PROG NOTE ---
[address] [address] PROGRESS NOTE PATIENT: JOSAFAT SOLIS : 1945 MR#: [id number] ADMIT: 03/24/2017 JOB ID: [id number] DATE: 03/28/2017 PULMONARY CRITICAL CARE PROGRESS NOTE: The patient is a 71-year-old man with history of renal cell carcinoma status post nephrectomy admitted with perforated sigmoid diverticulitis and diverticular abscess, septic shock, and respiratory failure. The patient was seen and evaluated with resident physician, Josafat Jama. Please refer to his separate detailed note for additional information. INTERVAL HISTORY: He had a low-grade temperature to 38.1. No other major overnight events. He has diuresed well with the single dose of IV Lasix. REVIEW OF SYSTEMS: Could not be obtained. PHYSICAL EXAMINATION: Vital signs reviewed. T-max 38.1 at 8 p.m. last night. He is on 30% FiO2 on the ventilator with 5 cm of PEEP. General: Intubated, sedated, currently unresponsive. Chest: Clear to auscultation. Heart: Regular rate, rhythm. Abdomen: Midline incision and ostomy examined. Ostomy site appears more pink compared to yesterday. LABORATORIES: Reviewed. Procalcitonin down to 1.18 from 1.58. Cultures: No growth. ASSESSMENT: Chest x-ray reviewed and shows improvement in bilateral pleural effusions compared to prior. ASSESSMENT AND RECOMMENDATIONS: 1. Septic shock-resolved. 2. Sigmoid diverticulitis with perforation and diverticular abscess, status post sigmoid colectomy with descending colostomy on March 24. 3. Acute hypoxic respiratory failure on mechanical ventilation since March 20. 4. Renal cell carcinoma status post nephrectomy on oral chemotherapy with pazopanib. 5. Thrombocytopenia-stable. A 71-year-old man with history of renal cell carcinoma status post nephrectomy, on oral chemotherapy presenting with perforated sigmoid colon diverticular abscess, for which she was emergently taken to the operating room on March 24 with dissection and creation of colostomy. He remains intubated, off pressors. He tolerated diuresis reasonably well yesterday but his blood pressure is on the low side today with systolics in the 90s-100s. He still appears significantly volume overloaded but his albumin is quite low at 1.4 so we are going to schedule IV albumin q. 8 plus low-dose Lasix drip in an attempt to remove more fluid without affecting his blood pressure too much. With regards to antibiotics, he is getting Zosyn and micafungin and ID has evaluated him yesterday. We will continue with this regimen despite his single low-grade fever and just monitor for any additional fevers. For nutrition he has been on TPN per recommendations from surgery. I would defer to them regarding when we can initiate any enteric feeding. Recall that his left IJ triple-lumen has its tip in the brachiocephalic and we should probably consider switching to a PICC line some time soon. He is on appropriate DVT and GI prophylaxis. CRITICAL CARE TIME: 45 minutes. MTDD
--- NOTE | 2017-03-28 14:02 | PCM.PHAPRO ---
Progress tpn tpn#2 Indication for TPN: Sigmoid diverticulitis with perforation and diverticular abscess (sigmoid colectomy with descending colostomy on March 24). Problem highlights: Acute hypoxic respiratory failure on mechanical ventilation (since 03/20) Renal cell carcinoma status post nephrectomy. Receiving TKI (EGFR inhibitor) plus dexamethasone [employer] Thrombocytopenia, anemia, resolving, possibly related to TKI therapy I. Fluid Balance/ HD Fluid positive, BP marginal, complicated by albumin <2. Now receiving exogenous albumin and crystalloid, but off pressors. II. Chem Lytes generally WNL and without trends Bilirubin remains ~ 1.5-1.9, etiology unclear Triglycerides in low 300's III. Glucose <130 without exogenous insulin IV. Macro's Continue at ~35% goals, advance tomorrow if tolerated PARENTERAL NUTRITION ORDERS 2 - Standard Hang Time: 2100 Substrates Total kcal: 740 AMINO ACIDS 50 g DEXTROSE 100 g Total Volume (mL): 1800 LIPIDS 20 g Sterile Water for Injection mL To Infuse Over (hrs): 24 Total Volume 1800 mL At at a rate of (mL/hr): 75 Additives Sodium Chloride 60 mEq "typical" daily requirements Sodium Acetate 60 mEq Sodium 50-120mEq Potassium Chloride 40 mEq Potassium 60-120mEq Potassium Phosphate 40 mEq Phosphate 20-40mEq Calcium Gluconate 8 mEq Magnesium 8-32mEq Magnesium Sulfate 16 mEq Calcium 9-22mEq Acetate* 80-120mEq Chloride* 80-120mEq Regular Insulin 0 units *Depending on acid-base status Famotidine 0 mg Multivitamins 1 std dose Insulin Regimen Trace Elements 1 std dose none Thiamine mg Regular Low Intensity Subcut Folic Acid mg Regular Medium Intensity Subcut Ascorbic Acid mg Regular High Intensity Subcut Regular Insulin Infusion Other: Special Instructions: To be infused via central line only. For delay or inturruption of TPN contact the pharmacist for alternative replacement solution. Signature Date: Humberto Saldivar 2020 [facility] Phi Marquez S Pharm D Mar 28, 2017 14:02
[2017-03-28] MEDS: Dextrose 5% Lactated Ringer's 1,000 ML IV SCH (14:42)
--- NOTE | 2017-03-28 14:45 | PCM.PNMED ---
Subjective Date of Service Mar 28, 2017 Subjective ICU Progress Note Patient is a 71 year old male with a history of CAD with 2 stents, COPD, hyperlipidemia, and right-sided renal cell carcinoma (s/p nephrectomy in October 2016) currently treated with Pazopanib presenting to the CCU hypotensive and intubated status post sigmoid colectomy with descending colostomy for perforated diverticulitis. Overnight, he continued to have significant abdominal tenderness, grimacing/ wincing when his abdomen was touched. He was febrile overnight, with Tmax 38.1. Today he is sedated and intubated and cannot provide further history. Exam Vital Signs Vital Sign - Last Date Time Temp Pulse Resp B/P Pulse Ox O2 Delivery O2 Flow Rate FiO2 03/28/17 10:55 92 106/62 98 30 03/28/17 08:00 37.3 12 03/28/17 04:00 Mechanical Ventilator Intake and Output 03/27/17 03/27/17 03/28/17 Cumulative From/Thru 15:00 23:00 07:00 03/24/17 14:24 - 03/28/17 06:25 Intake Total 1429 ml 1210 ml 53527 ml Output Total 3345 ml 1865 ml 9200 ml Balance -1916 ml -655 ml 8227 ml Intake Oral 0 ml 0 ml IV Total 1429 ml 601 ml 21360 ml Tube Feeding 40 ml TPN/PPN 609 ml 609 ml Tube Irrigant 40 ml Output Urine Total 3200 ml 1800 ml 8095 ml Stool Total 0 ml 15 ml 15 ml Gastric Drainage Total 0 ml 270 ml Drainage Total 145 ml 50 ml 700 ml Estimated Blood Loss 120 ml Exam General: Sedated and intubated, no acute distress. Head: Normocephalic, atraumatic. External ears normal. Eyes: PERRLA, EOMI. Anicteric sclerae. Mouth: Mouth normal, Mucous membranes moist/pink Neck: Neck supple with full range of motion. Chest& Lungs: Right lower lobe rhonchi Cardiovascular: Regular rate/rhythm, Normal S1, Normal S2, No murmurs/rubs/ gallops Abdomen: Tender, hypoactive bowel sounds. Mild erythema around vertical abdominal incision with ARCELIA drain in place with serosanguineous fluid. Ostomy dark, partly retracted, draining dark fluid. Musculoskeletal: Normal range of motion Extremities: No cyanosis/clubbing/edema bilaterally Neurological: Sedated and intubated. Vent Settings FiO2: 30 PEEP set: 5 PEEP mes: 5 RR: 10 VT: 500 Peak: 20 Plat: 14 Lab and Diagnostics Result Diagram: 03/28/1752403/28/17524 Microbiology Blood culture 2/3 bottles positive for Gram + cocci X-Rays, CTs and MRIs (03/24/17) X-RAY CHEST ONE VIEW, PORTABLE IMPRESSION: No acute pulmonary process. Dictated and approved by: Windy Larsen M.D. on 03/24/2017 at 14:05 (03/24/17) CT ANGIO CHEST PULMONARY EMBOLISM IMPRESSION: 1. No acute pulmonary embolus. 2. 4 mm groundglass nodule. No prior comparisons are available. Please see followup guidelines below. 3. Please see detailed description of abdominal findings on the associated CT of the abdomen from the same date. ADDENDUM: Fleischner Society criteria for SOLID lung nodule followup. Nodule size (mm)Low-risk patientHigh-risk [id number] follow-up neededFollow-up at 12 mo; if no change, no further follow-up>4-3Sonuau-fc CT at 12 mo; if no change, no further follow-up needed.Initial follow-up CT at 6-12 mo, then 18-24 mo if no change. >6-8Initial follow-up CT at 6-12 mo, then 18-24 mo if no change. Initial follow-up CT at 3-6 mo, then 9-12 mo and 24 mo if no change. > 8Follow-up CT at 3, 9, 24 mo. Or PET and/or biopsy.Same as for low-risk pts. Fleischner Society criteria for SUB-SOLID lung nodule followup. Solitary pure ground-glass nodules5 mm or lessNo followup needed. >5 mm3 mo follow-up CT to confirm persistence. Then annual CT for 3 years. Part-solid nodules3 mo follow-up CT to confirm persistence. If persistent with solid component <5 mm, annual CT for at least 3 years. If solid component is 5 mm or more, biopsy or surgical resection. Consider PET-CT for lesions > 10 mm. Multiple sub-solid nodulesPure ground glass nodules [address] at 2 and 4 years. Pure ground glass nodules >5 mm without dominant lesion. [address] to confirm persistence, then annual followup CT for at least 3 years. Dominant nodule(s) with part-solid or solid component. [address] to confirm persistence. If persistent, consider biopsy or surgical resection, carlito if lesions have >5 mm solid component. Dictated and approved by: Vanessa Torres M.D. on 03/24/2017 at 16:23 (03/24/17) CT ABDOMEN AND PELVIS WITH CONTRAST IMPRESSION: 1. Perforated acute diverticulitis with intra-abdominal abscess as above. Given the location posterior to the sigmoid colon and the bladder, this is likely not amenable to percutaneous drainage. Surgical consultation recommended. 2. Multiple foci of pneumoperitoneum. It is unclear whether there is a solitary perforated region of the sigmoid colon in the region of the abscess or if there may be a second bowel perforation more proximally in the left lower quadrant.These findings were discussed with Dr. Moreno at 4:27 PM on 03/24/17. 3. 1.0 cm diameter cystic lesion within the body of the pancreas. This is new when compared with the prior study dated 09/16/16. Differential considerations include both neoplastic and nonneoplastic cystic lesions. 4. Cholelithiasis. No acute cholecystitis. 5. Severe wedge compression deformity at L1 likely pathologic in nature given the expansile lytic lesion in this vertebral body on the study dated 09/16/16. Dictated and approved by: Vanessa Torres M.D. on 03/24/2017 at 16:24 X-RAY CHEST ONE VIEW, PORTABLE IMPRESSION: New ET tube, enteric tube, and left-sided IJ CVC in expected positions. New left pleural effusion with left basilar atelectasis. Dictated by: Bang Chung M.D. on 03/25/2017 at 7:54 Approved by: Bang Chung M.D. on 03/25/2017 at 7:56 X-RAY CHEST ONE VIEW, PORTABLE IMPRESSION: Decreased lung volumes, with patchy left midlung atelectasis. Dictated by: Darius Molina M.D. on 03/26/2017 at 8:30 Approved by: Darius Molina M.D. on 03/26/2017 at 8:33 . Additional Diagnostics ABG DateTimeAnalyzed 03:52:04 -_ pH ____7.429 - 7.350 7.450 pCO2 ___28.7__ -mmHg 35.0 45.0 pO2 ___92.1__ -mmHg 69.0 116 HCO3- ___19.0__ -mmol/L 22.0 26.0 . Assessment & Plan Patient is a 71 year old gentleman with a history of CAD with 2 stents, COPD, hyperlipidemia, and right-sided renal cell carcinoma (s/p nephrectomy in October 2016) currently treated with Pazopanib presenting to the CCU hypotensive and intubated status post sigmoid colectomy with descending colostomy for perforated diverticulitis. Acute hypoxic respiratory failure - Pt intubated and sedated in the OR, remains on mechanical ventilation in part due to COPD. At presentation he did not appear to be in acute exacerbation. He has had a persistent respiratory alkalosis, which may have interfered with his pressure support trial via suppression of CO2 driven respiratory drive. Will attempt to decrease his respiratory rate and normalize his CO2 and pH before restarting his pressure support trials. Pt tolerated diuresis well yesterday, and will continue diuresing gently with low dose Lasix gtt. -Continue ventilator support, pressure support trial today. - Wean sedation as tolerated - Lasix gtt Perforated diverticulitis with intra-abdominal abscess, s/p sigmoid colectomy and descending colostomy - Pt has been experiencing significant abdominal pain postoperatively, requiring increasing amounts of fentanyl. Stoma appears dusky and slightly necrotic; Surgery is aware and does not see need for revision yet. Pt has hx of renal cell carcinoma on pazopanib PO, with recent ostomy placement, and is on TPN. At significant risk for fungal infection. Will continue micafungin. - Wean fentanyl and midazolam as tolerated - Continue Zosyn IV. - Micafungin IV daily - Fungitell and fungal blood cultures Hypotension, acute. Resolved. - Pt is still 8.2 L positive today. No longer requiring pressor support with norepi but still somewhat hypotensive overnight with MAP in 70s. Currently on TPN. He is hypoalbuminemic so will administer albumin 50 mg and start Lasix gtt. - Continue TPN - Lasix gtt - Albumin 50 mg given Thrombocytopenia, acute. Stable - Platelets now increasing from 97 to 103. Appears to be stable for now. Was likely in part due to hemodilution from aggressive hydration and thrombocytopenia in the setting of acute sepsis - Monitor CBC GI Prophylaxis: H2 saw VTE Prophylaxis: Sub-Q Heparin (Unfractionated) VTE Mechanical Devices: Intermittant Pneumatic CD Resuscitation Status: CPR: Attempt Resuscitation Attending Statement I have seen and examined this patient with the resident physician. Vital signs , labs, imaging have been reviewed. I agree with the assessment and plan above. Please refer to my separately dictated progress note for any modifications to above. Eloise Linder M.D. Pulmonary and Critical Care medicine Pager [phone] Humberto Jama Mar 28, 2017 13:03 Eloise Linder MD Mar 29, 2017 07:29
--- NOTE | 2017-03-28 14:48 | NUR ---
Vital signs stable, afebrile, sinus rhythm on tele, no ectopy noted. Fentanyl bolus' given prior to repositioning helpful for perceived discomfort. Abd soft, stoma remains dark, no stool. Abd incision appears healing, no drainage or redness. Serous ARCELIA drainage diminishing. Adequate UOP via patterson cath. TPN infusing. BGs within target range/no insulin indicated. Vent changes per MD/ABG results, tolerating PS trial this afternoon. Appears comfortable at this time. here briefly this morning/updated.
--- NOTE | 2017-03-28 15:13 | PCM.PNMED ---
Subjective Date of Service Mar 28, 2017 Subjective Subjective: Patient remains comatose and is not able to participate in his care at this time. Events Overnight: No acute events overnight. ROS: Due to the patient being comatose, a review of systems was unable to be obtained. Exam Vital Signs Vital Sign - Last Date Time Temp Pulse Resp B/P Pulse Ox O2 Delivery O2 Flow Rate FiO2 03/28/17 13:01 16 96 30 03/28/17 12:56 92 125/70 03/28/17 12:00 36.9 03/28/17 04:00 Mechanical Ventilator Intake and Output 03/27/17 03/27/17 03/28/17 Cumulative From/Thru 15:00 23:00 07:00 03/24/17 14:24 - 03/28/17 06:25 Intake Total 1429 ml 1210 ml 92054 ml Output Total 3345 ml 1865 ml 9200 ml Balance -1916 ml -655 ml 8227 ml Intake Oral 0 ml 0 ml IV Total 1429 ml 601 ml 98865 ml Tube Feeding 40 ml TPN/PPN 609 ml 609 ml Tube Irrigant 40 ml Output Urine Total 3200 ml 1800 ml 8095 ml Stool Total 0 ml 15 ml 15 ml Gastric Drainage Total 0 ml 270 ml Drainage Total 145 ml 50 ml 700 ml Estimated Blood Loss 120 ml Exam General: Sedated and intubated, no acute distress HEENT: Normocephalic, atraumatic. External ears without defect. Pupils equal, round, and reactive to light and accommodation. Anicteric sclerae, moist conjunctivae. IJ in place Cardiovascular: Regular rate and rhythm with no murmurs, rubs, or gallops appreciated Pulmonary: Patient is currently on the ventilator, breath sounds are coarse due to ventilation status. Abdomen: Bowel tones present. Soft, nondistended, indurated and retracted ostomy with some necrosis, draining dark fluid. Well-healing incision closed with radha, ARCELIA drain in place. Extremities: No clubbing, cyanosis, edema Skin: Normal temperature, turgor, and texture; no rash, ulcers, or subcutaneous nodules appreciated. Neurological: Unable to assess Normal tone, and bulk. Psychiatric: Unable to assess IVs and Medications IV Fluids 550 mL normal saline delivered with IV medications. Medications Reviewed: Medications were reviewed in detail Medications High-risk medications include: Fentanyl Midazolam Lab and Diagnostics Result Diagram: 03/28/17 0525 03/28/17 0525 Microbiology Blood culture 2/3 bottles positive for Gram + cocci X-Rays, CTs and MRIs (03/24/17) X-RAY CHEST ONE VIEW, PORTABLE IMPRESSION: No acute pulmonary process. Dictated and approved by: Windy Larsen M.D. on 03/24/2017 at 14:05 (03/24/17) CT ANGIO CHEST PULMONARY EMBOLISM IMPRESSION: 1. No acute pulmonary embolus. 2. 4 mm groundglass nodule. No prior comparisons are available. Please see followup guidelines below. 3. Please see detailed description of abdominal findings on the associated CT of the abdomen from the same date. ADDENDUM: Fleischner Society criteria for SOLID lung nodule followup. Nodule size (mm)Low-risk patientHigh-risk [id number] follow-up neededFollow-up at 12 mo; if no change, no further follow-up>3-2Ddgief-au CT at 12 mo; if no change, no further follow-up needed.Initial follow-up CT at 6-12 mo, then 18-24 mo if no change. >6-8Initial follow-up CT at 6-12 mo, then 18-24 mo if no change. Initial follow-up CT at 3-6 mo, then 9-12 mo and 24 mo if no change. > 8Follow-up CT at 3, 9, 24 mo. Or PET and/or biopsy.Same as for low-risk pts. Fleischner Society criteria for SUB-SOLID lung nodule followup. Solitary pure ground-glass nodules5 mm or lessNo followup needed. >5 mm3 mo follow-up CT to confirm persistence. Then annual CT for 3 years. Part-solid nodules3 mo follow-up CT to confirm persistence. If persistent with solid component <5 mm, annual CT for at least 3 years. If solid component is 5 mm or more, biopsy or surgical resection. Consider PET-CT for lesions > 10 mm. Multiple sub-solid nodulesPure ground glass nodules [address] at 2 and 4 years. Pure ground glass nodules >5 mm without dominant lesion. [address] to confirm persistence, then annual followup CT for at least 3 years. Dominant nodule(s) with part-solid or solid component. [address] to confirm persistence. If persistent, consider biopsy or surgical resection, carlito if lesions have >5 mm solid component. Dictated and approved by: Vanessa Torres M.D. on 03/24/2017 at 16:23 (03/24/17) CT ABDOMEN AND PELVIS WITH CONTRAST IMPRESSION: 1. Perforated acute diverticulitis with intra-abdominal abscess as above. Given the location posterior to the sigmoid colon and the bladder, this is likely not amenable to percutaneous drainage. Surgical consultation recommended. 2. Multiple foci of pneumoperitoneum. It is unclear whether there is a solitary perforated region of the sigmoid colon in the region of the abscess or if there may be a second bowel perforation more proximally in the left lower quadrant.These findings were discussed with Dr. Moreno at 4:27 PM on 03/24/17. 3. 1.0 cm diameter cystic lesion within the body of the pancreas. This is new when compared with the prior study dated 09/16/16. Differential considerations include both neoplastic and nonneoplastic cystic lesions. 4. Cholelithiasis. No acute cholecystitis. 5. Severe wedge compression deformity at L1 likely pathologic in nature given the expansile lytic lesion in this vertebral body on the study dated 09/16/16. Dictated and approved by: Vanessa Torres M.D. on 03/24/2017 at 16:24 X-RAY CHEST ONE VIEW, PORTABLE IMPRESSION: New ET tube, enteric tube, and left-sided IJ CVC in expected positions. New left pleural effusion with left basilar atelectasis. Dictated by: Bang Chung M.D. on 03/25/2017 at 7:54 Approved by: Bang Chung M.D. on 03/25/2017 at 7:56 X-RAY CHEST ONE VIEW, PORTABLE IMPRESSION: Decreased lung volumes, with patchy left midlung atelectasis. Dictated by: Darius Molina M.D. on 03/26/2017 at 8:30 Approved by: Darius Molina M.D. on 03/26/2017 at 8:33 . Additional Diagnostics ABG DateTimeAnalyzed 03:52:04 -_ pH ____7.429 - 7.350 7.450 pCO2 ___28.7__ -mmHg 35.0 45.0 pO2 ___92.1__ -mmHg 69.0 116 HCO3- ___19.0__ -mmol/L 22.0 26.0 . Assessment & Plan 71 year old gentleman with a history of CAD with 2 stents, COPD, hyperlipidemia , and right-sided renal cell carcinoma (s/p nephrectomy in October 2016) currently treated with Pazopanib presenting to the CCU hypotensive and intubated status post sigmoid colectomy with descending colostomy for perforated diverticulitis. Hypotension, acute. Active -Likely stress reaction secondary to perforated bowel with associated intra- abdominal abscess. Minimal blood loss noted during surgery. -Pt hypertensive at baseline. Transferred to CCU post-op requiring pressor support. (received phenylephrine in the OR) -Vital signs currently stable As of today patient is 8.2 L positive no longer requiring pressors -IV fluids discontinued, TPN started on 03/27, low-dose IV Lasix for fluid overload. -50 mg albumin given -Continue TPN Perforated diverticulitis with intra-abdominal abscess. S/P sigmoid colectomy and descending colostomy, active -Patient continues with increased pain in the abdomen noted by grimacing with palpation. Requiring increased amounts of fentanyl. -Ostomy with induration and some retraction, possibly necrotic, surgery continues to follow and does not see a need for revision at this time. -[place] and ARCELIA drain should remain for now. -Continue IV Zosyn -Continue Micafungin for fungal coverage Coronary artery disease, chronic. Present on admission. stable. -Pt with prior MO and two stents. Presented with mild chest pain with negative cardiac enzymes and no acute ischemic changes noted on ECG. -Continue home simvastatin and aspirin when able -Continuous cardiac monitoring. Acute Hypoxic Respiratory Failure due to surgery and COPD, chronic. Present on admission. stable. -Pt intubated and sedated in the CCU. At presentation he did not appear to be in acute exacerbation. -Continue ventilator support, pressure support trial as able -Continue fentanyl for sedation, wean as tolerated -Patient should likely remain intubated regardless of progress until ostomy is working properly and we can be sure revision is not necessary Renal cell carcinoma of right kidney, chronic. Presumed stable. -Pt is s/p nephrectomy in October 2016, currently treated with Pazopanib and dexamethasone. -CT abd/pelvis showed a renal cyst as above. -Resume oral medications when able -If pt remains intubated, will likely add IV steroid Diabetes mellitus, type 2, chronic. Present on admission. Presumed stable. -Serum glucose 114 at presentation, no HbA1c on file -Current outpatient therapy is Metformin 500mg PO BID -Hold Metformin -Continue tight glucose control. Per recommendations of general surgery if > 180 use insulin drip. Hypertension, chronic. Present on admission. Stable -Pt currently maintaining blood pressures without the use of pressors -Blood pressures remain low, but stable -Held home antihypertensives: Lisinopril 40mg PO daily, Metoprolol succinate 50mg PO daily Hyperlipidemia, chronic. Present on admission. Presumed stable. -Continue home dose statin (Simvastatin 20mg PO HS) when able Disposition: Patient prognosis guarded at this time. He will likely require a minimum of 5-7 days of inpatient treatment before discharge. GI Prophylaxis: H2 saw VTE Prophylaxis: Sub-Q Heparin (Unfractionated) VTE Mechanical Devices: Intermittant Pneumatic CD Resuscitation Status: CPR: Attempt Resuscitation Attending Statement The patient was seen and examined together with Resident/House-staff on 03/28/17 and I agree with the history, exam and plan as outlined in the note above. Mode Suggs DO Mar 28, 2017 15:12 Timothy Lovelace Mar 28, 2017 17:10
[2017-03-28] MEDS: TPN Per Pharmacist XX SCH (20:02)
[2017-03-28] MEDS: Total Parenteral Nutrition 1 BAG IV SCH (20:02)
[2017-03-29] VITALS (15 sets, daily range): BP systolic 88–150; BP diastolic 56–69; PULSE 82–108; RESP 11–26; O2SAT 94–99
[2017-03-29] MEDS: Heparin 5,000 Unit/mL Inj SUBQ SCH ×4 (00:32→23:55)
[2017-03-29] MEDS: Chlorhexidine 0.12% 15 mL Oral Solution MT SCH ×7 (00:32→23:54)
[2017-03-29] MEDS: Piperacillin-Tazo 3.375 Gm Inj 3.375 GM in Dextrose 5% Minibag Plus 50 ML IV SCH ×4 (00:32→23:54)
[2017-03-29] MEDS: fentaNYL 2,500 mCg/250 mL 2,500 MCG in IV Premix 1 EACH IV SCH (01:02)
[2017-03-29 04:15] LABS: Mean Corpuscular Hemoglobin 30.5 pg (27.0-35.0); Mean Corpuscular Volume 90.2 fL (81-100)
[2017-03-29 04:40] LABS: Magnesium 1.8 mg/dL (1.6-2.6); Phosphorus 3.7 mg/dL (2.5-4.9)
--- NOTE | 2017-03-29 05:27 | ABG ---
DateTimeAnalyzed 05:20:00 -_ pH ____7.475 - 7.350 7.450 pCO2 ___33.8__ -mmHg 35.0 45.0 pO2 ___94.1__ -mmHg 69.0 116 HCO3- ___24.6__ -mmol/L 22.0 26.0 ABE ____1.7__ -mmol/L -2.0 2.0 tHb ___10.7__ -g/dL 12.0 18.0 O2Hb ___96.3__ -% COHb ____0.8__ -% 0.0 1.5 MetHb ____0.7__ -% 0.4 1.5 sO2 ___97.8__ -% 25.0 FIO2 ___30.0__ -% PEEP ____5.0__ -cmH2O Set_RR ___10.0__ -b/min Vt __450.0__ -L Drawn By AF - Date/Time Notified____ 05:27:00 -_ Spontaneous_RR ___11.0__ -b/min Oxygen Device 1 VENTILATOR - Notified Whom _DR FIELD - B 759 -mmHg tO2 ___14.7__ -Vol% Lion test N/A -
--- NOTE | 2017-03-29 06:13 | NUR ---
P) Fever/Respiratory/ Pt. febrile again tonight, T-max 37.9c orally, Lungs with coarse breath sounds bilat with scattered inspiratory rales/stridor. Minimal phlegm suctioned from ET tube, thin and white. Cardiac rhythm sinus tach to SVT, highest rate was in the 150's for a few seconds. Pt. struggles with pain when turned and tries to strike caregivers, no bowel tones noted. Urine odalys with minimal sediment. I) Passive cooling measures, meds per 's orders, turning q2h and floating heels, pt. did not tolerate rotation tonight, became more tachy, rotation stopped. E) Currently resting quietly with eyes closed.
--- NOTE | 2017-03-29 08:02 | PROG NOTE ---
[address] [address] PROGRESS NOTE PATIENT: JOSAFAT SOLIS : 1945 MR#: [id number] ADMIT: 03/24/2017 JOB ID: [id number] DATE: 03/29/2017 SUBJECTIVE: The patient is seen in followup. Events overnight include ongoing fevers. Temperature max was 37.9. OBJECTIVE: Pulse 105, blood pressure 91/63, saturation 97% on 30% FiO2. General: He is sedated, but responds to painful stimuli. Chest is clear. Heart regular rate and rhythm, no murmurs. Abdomen is soft, nondistended. Bowel tones are quiet. His midline wound is clean with no erythema and no drainage. ARCELIA drain has serosanguineous output, 90 cc overnight. The colostomy in the left mid abdomen has superficial necrosis, but is otherwise intact. There is no significant output. LABORATORIES: White count 3.3, hematocrit 31.4, platelets 98, creatinine 0.70. Glucose 136. Albumin 2.0. ASSESSMENT AND PLAN: A 71-year-old man with perforated sigmoid diverticulitis with feculent peritonitis and intraabdominal abscess. He is stable from a surgical standpoint. I think he could probably be extubated soon. Plans are to treat the colostomy conservatively as it is most likely will heal without reintervention. TPN has been started, and we await return of bowel function. Broad-spectrum antibiotics will be continued.
[2017-03-29] MEDS: Micafungin Inj 100 MG in 0.9% Sodium Chloride 100 ML IV SCH (08:49)
[2017-03-29] MEDS: Famotidine Inj 20 MG in IV Premix 1 EACH IV SCH ×2 (08:49→19:54)
[2017-03-29] MEDS ORDERED: HYDROmorphone 0.5 mg/0.5 mL iSecure Syringe IVPUSH PRN (09:00)
[2017-03-29] MEDS ORDERED: Albumin 25% 25 GM in IV Premix 1 EACH IV ONE (09:00)
--- NOTE | 2017-03-29 11:10 | PCM.PNMED ---
Subjective Date of Service Mar 29, 2017 Subjective ICU Progress Note Patient is a 71 year old male with a history of CAD with 2 stents, COPD, hyperlipidemia, and right-sided renal cell carcinoma (s/p nephrectomy in October 2016) currently treated with Pazopanib presenting to the CCU hypotensive and intubated status post sigmoid colectomy with descending colostomy for perforated diverticulitis. Overnight, he had a low grade fever at 37.9, treated with passive cooling measures. Telemetry showed sinus tachycardia, with one episode of SVT in 150s lasting a few seconds. He continues to experience significant abdominal tenderness to palpation. Today he is on a pressure support trial, tolerating well. On fentanyl @ 150 and midazolam @ 4. Exam Vital Signs Vital Sign - Last Date Time Temp Pulse Resp B/P Pulse Ox O2 Delivery O2 Flow Rate FiO2 03/29/17 09:51 99 30 03/29/17 09:45 105 22 89/56 03/29/17 08:02 Ventilator 03/29/17 08:02 37.4 Intake and Output 03/28/17 03/28/17 03/29/17 Cumulative From/Thru 15:00 23:00 07:00 03/24/17 14:24 - 03/29/17 06:35 Intake Total 1675 ml 1583 ml 53167 ml Output Total 1795 ml 4260 ml 75265 ml Balance -120 ml -2677 ml 5430 ml Intake Oral 0 ml IV Total 775 ml 583 ml 12190 ml Tube Feeding 40 ml TPN/PPN 900 ml 1000 ml 2509 ml Tube Irrigant 40 ml Output Urine Total 1700 ml 4100 ml 07370 ml Stool Total 0 ml 15 ml Gastric Drainage Total 0 ml 70 ml 340 ml Drainage Total 95 ml 90 ml 885 ml Estimated Blood Loss 120 ml Exam General: Sedated and intubated, no acute distress. Head: Normocephalic, atraumatic. External ears normal. Eyes: PERRLA, EOMI. Anicteric sclerae. Mouth: Mouth normal, Mucous membranes moist/pink Neck: Neck supple with full range of motion. Chest& Lungs: Clear to auscultation bilaterally. Cardiovascular: Regular rate/rhythm, Normal S1, Normal S2, No murmurs/rubs/ gallops Abdomen: Tender, hypoactive bowel sounds. Vertical abdominal incision clean with ARCELIA drain in place with serosanguineous fluid. Ostomy dark, partly retracted , draining dark fluid. Musculoskeletal: Normal range of motion Extremities: Mild 1+ lower extremity pitting edema bilat. Left leg cold, weak pulses. Neurological: Sedated and intubated. Lab and Diagnostics Result Diagram: 03/29/1740903/29/17409 Microbiology Blood culture 2/3 bottles positive for Gram + cocci X-Rays, CTs and MRIs (03/24/17) X-RAY CHEST ONE VIEW, PORTABLE IMPRESSION: No acute pulmonary process. Dictated and approved by: Windy Larsen M.D. on 03/24/2017 at 14:05 (03/24/17) CT ANGIO CHEST PULMONARY EMBOLISM IMPRESSION: 1. No acute pulmonary embolus. 2. 4 mm groundglass nodule. No prior comparisons are available. Please see followup guidelines below. 3. Please see detailed description of abdominal findings on the associated CT of the abdomen from the same date. ADDENDUM: Fleischner Society criteria for SOLID lung nodule followup. Nodule size (mm)Low-risk patientHigh-risk [id number] follow-up neededFollow-up at 12 mo; if no change, no further follow-up>[id number] CT at 12 mo; if no change, no further follow-up needed.Initial follow-up CT at 6-12 mo, then 18-24 mo if no change. >6-8Initial follow-up CT at 6-12 mo, then 18-24 mo if no change. Initial follow-up CT at 3-6 mo, then 9-12 mo and 24 mo if no change. > 8Follow-up CT at 3, 9, 24 mo. Or PET and/or biopsy.Same as for low-risk pts. Fleischner Society criteria for SUB-SOLID lung nodule followup. Solitary pure ground-glass nodules5 mm or lessNo followup needed. >5 mm3 mo follow-up CT to confirm persistence. Then annual CT for 3 years. Part-solid nodules3 mo follow-up CT to confirm persistence. If persistent with solid component <5 mm, annual CT for at least 3 years. If solid component is 5 mm or more, biopsy or surgical resection. Consider PET-CT for lesions > 10 mm. Multiple sub-solid nodulesPure ground glass nodules [address] at 2 and 4 years. Pure ground glass nodules >5 mm without dominant lesion. [address] to confirm persistence, then annual followup CT for at least 3 years. Dominant nodule(s) with part-solid or solid component. [address] to confirm persistence. If persistent, consider biopsy or surgical resection, carlito if lesions have >5 mm solid component. Dictated and approved by: Vanessa Torres M.D. on 03/24/2017 at 16:23 (03/24/17) CT ABDOMEN AND PELVIS WITH CONTRAST IMPRESSION: 1. Perforated acute diverticulitis with intra-abdominal abscess as above. Given the location posterior to the sigmoid colon and the bladder, this is likely not amenable to percutaneous drainage. Surgical consultation recommended. 2. Multiple foci of pneumoperitoneum. It is unclear whether there is a solitary perforated region of the sigmoid colon in the region of the abscess or if there may be a second bowel perforation more proximally in the left lower quadrant.These findings were discussed with Dr. Moreno at 4:27 PM on 03/24/17. 3. 1.0 cm diameter cystic lesion within the body of the pancreas. This is new when compared with the prior study dated 09/16/16. Differential considerations include both neoplastic and nonneoplastic cystic lesions. 4. Cholelithiasis. No acute cholecystitis. 5. Severe wedge compression deformity at L1 likely pathologic in nature given the expansile lytic lesion in this vertebral body on the study dated 09/16/16. Dictated and approved by: Vanessa Torres M.D. on 03/24/2017 at 16:24 X-RAY CHEST ONE VIEW, PORTABLE IMPRESSION: New ET tube, enteric tube, and left-sided IJ CVC in expected positions. New left pleural effusion with left basilar atelectasis. Dictated by: Bang Chung M.D. on 03/25/2017 at 7:54 Approved by: Bang Chung M.D. on 03/25/2017 at 7:56 X-RAY CHEST ONE VIEW, PORTABLE IMPRESSION: Decreased lung volumes, with patchy left midlung atelectasis. Dictated by: Darius Molina M.D. on 03/26/2017 at 8:30 Approved by: Darius Molina M.D. on 03/26/2017 at 8:33 . Additional Diagnostics ABG DateTimeAnalyzed 03:52:04 -_ pH ____7.429 - 7.350 7.450 pCO2 ___28.7__ -mmHg 35.0 45.0 pO2 ___92.1__ -mmHg 69.0 116 HCO3- ___19.0__ -mmol/L 22.0 26.0 . Assessment & Plan Patient is a 71 year old gentleman with a history of CAD with 2 stents, COPD, hyperlipidemia, and right-sided renal cell carcinoma (s/p nephrectomy in October 2016) currently treated with Pazopanib presenting to the CCU hypotensive and intubated status post sigmoid colectomy with descending colostomy for perforated diverticulitis. Acute hypoxic respiratory failure - Pt intubated and sedated in the OR, remains on mechanical ventilation in part due to COPD. At presentation he did not appear to be in acute exacerbation. Tolerating pressure support trial well today. Barrier to extubation includes significant need for pain control. He may need to be on a Dilaudid [employer] with PRN IV pushes if he is too weak or otherwise unable to use the [employer]IVE. Per surgery, he likely does not require a return to the OR, so he may be able to extubate soon. -Continue ventilator support, pressure support trial today. - Wean sedation as tolerated Hypotension, acute. - Pt no longer requiring pressor support with norepi but still somewhat hypotensive overnight with MAP in 70s. Currently on TPN. Pt tolerated diuresis well yesterday, but is more hypotensive today. Will give more albumin and stop Lasix gtt. - Continue TPN - Lasix gtt discontinued - Albumin 25 g given Perforated diverticulitis with intra-abdominal abscess, s/p sigmoid colectomy and descending colostomy - Pt has been experiencing significant abdominal pain postoperatively, requiring increasing amounts of fentanyl. Stoma appears dusky and slightly necrotic; Surgery is aware and does not see need for revision yet. Pt has hx of renal cell carcinoma on pazopanib PO, with recent ostomy placement, and is on TPN. At significant risk for fungal infection. Will continue micafungin. - Wean fentanyl and midazolam as tolerated - Continue Zosyn IV. - Micafungin IV daily - Fungitell and fungal blood cultures Possible left leg ischemia, unknown acuity. - Noted left leg coolness and poor pulses today. Possible chronic condition, but may also be an embolic complication of surgery. - Left leg arterial doppler ordered. Thrombocytopenia, acute. Stable - Platelets appear stable around 100. Was likely in part due to hemodilution from aggressive hydration and thrombocytopenia in the setting of acute sepsis - Monitor CBC GI Prophylaxis: H2 saw VTE Prophylaxis: Sub-Q Heparin (Unfractionated) VTE Mechanical Devices: Intermittant Pneumatic CD Resuscitation Status: CPR: Attempt Resuscitation Attending Statement I have seen and examined this patient with the resident physician. Vital signs , labs, imaging have been reviewed. I agree with the assessment and plan above. Please refer to my separately dictated progress note for any modifications to above. Eloise Linder M.D. Pulmonary and Critical Care medicine Pager [phone] Humberto Jama Mar 29, 2017 11:10 Eloise Linder MD Mar 31, 2017 08:10
--- NOTE | 2017-03-29 11:11 | DRSVH ---
PROCEDURE: X-RAY CHEST ONE VIEW, PORTABLE ([id number]) INDICATIONS: INTUBATED TECHNIQUE: One view of the chest was acquired. COMPARISON: [facility], CR, XR CHEST 1VW (PORTABLE), 03/28/2017, 5:03. FINDINGS: Surgical changes and devices: ET tube with tip 3 CM above the willie. Enteric tube with tip below the diaphragm. Left IJ CVC with tip in the left brachiocephalic vein. Lungs and pleura: No pleural effusions or pneumothorax. Bibasilar atelectasis or infiltrates left gr eater than right. Small pleural effusions. Mediastinum: Mediastinal contours appear normal. Heart size is normal. Bones and chest wall: No suspicious bony lesions. Overlying soft tissues appear unremarkable. IMPRESSION: Mild progression of left basilar pulmonary opacities. Stable right basilar pulmonary opac ities and bilateral pleural effusions. Stable support devices. Dictated by: Bang Chung M.D. on 03/29/2017 at 11:08 Approved by: Bang Chung M.D. on 03/29/2017 at 11:10
[2017-03-29] MEDS ORDERED: HYDROmorphone PCA 0.2 mg/mL 30 mL Inj IV PRN (11:25)
--- NOTE | 2017-03-29 11:32 | PCM.PNMED ---
Subjective Date of Service Mar 29, 2017 Subjective Subjective: Patient continues on the vent, unable to produce patent his care at this time Events Overnight: No acute events overnight. ROS: Due to the patient being comatose, a review of systems was unable to be obtained. Exam Vital Signs Vital Sign - Last Date Time Temp Pulse Resp B/P Pulse Ox O2 Delivery O2 Flow Rate FiO2 03/29/17 09:51 99 30 03/29/17 09:45 105 22 89/56 03/29/17 08:02 Ventilator 03/29/17 08:02 37.4 Intake and Output 03/28/17 03/28/17 03/29/17 Cumulative From/Thru 15:00 23:00 07:00 03/24/17 14:24 - 03/29/17 06:35 Intake Total 1675 ml 1583 ml 42320 ml Output Total 1795 ml 4260 ml 33537 ml Balance -120 ml -2677 ml 5430 ml Intake Oral 0 ml IV Total 775 ml 583 ml 81288 ml Tube Feeding 40 ml TPN/PPN 900 ml 1000 ml 2509 ml Tube Irrigant 40 ml Output Urine Total 1700 ml 4100 ml 07068 ml Stool Total 0 ml 15 ml Gastric Drainage Total 0 ml 70 ml 340 ml Drainage Total 95 ml 90 ml 885 ml Estimated Blood Loss 120 ml Exam General: Sedated and intubated HEENT: Normocephalic, atraumatic. External ears without defect. Pupils equal, round, and reactive to light and accommodation. Anicteric sclerae, moist conjunctivae. IJ in place Cardiovascular: Regular rate and rhythm with no murmurs, rubs, or gallops appreciated Pulmonary: Patient is currently on the ventilator, breath sounds are coarse due to ventilation status. Abdomen: Bowel tones present. Soft, nondistended, indurated and retracted ostomy maroon colored, draining dark fluid. Well-healing incision closed with radha, ARCELIA drain in place. Grimacing significantly with palpation of the abdomen. Extremities: No clubbing, cyanosis, edema, decreased color and warmth of the left leg compared to right. Pulses intact. Skin: Normal temperature, turgor, and texture; no rash, ulcers, or subcutaneous nodules appreciated. Neurological: Unable to assess. Normal tone, and bulk. Psychiatric: Unable to assess IVs and Medications IV Fluids 550 mL normal saline with IV medications Medications Reviewed: Medications were reviewed in detail Medications High-risk medications include: Fentanyl Midazolam Lab and Diagnostics Result Diagram: 03/29/17 0410 03/29/17 0410 Microbiology Blood culture 2/3 bottles positive for Gram + cocci X-Rays, CTs and MRIs (03/24/17) X-RAY CHEST ONE VIEW, PORTABLE IMPRESSION: No acute pulmonary process. Dictated and approved by: Windy Larsen M.D. on 03/24/2017 at 14:05 (03/24/17) CT ANGIO CHEST PULMONARY EMBOLISM IMPRESSION: 1. No acute pulmonary embolus. 2. 4 mm groundglass nodule. No prior comparisons are available. Please see followup guidelines below. 3. Please see detailed description of abdominal findings on the associated CT of the abdomen from the same date. ADDENDUM: Fleischner Society criteria for SOLID lung nodule followup. Nodule size (mm)Low-risk patientHigh-risk [id number] follow-up neededFollow-up at 12 mo; if no change, no further follow-up>[id number] CT at 12 mo; if no change, no further follow-up needed.Initial follow-up CT at 6-12 mo, then 18-24 mo if no change. >6-8Initial follow-up CT at 6-12 mo, then 18-24 mo if no change. Initial follow-up CT at 3-6 mo, then 9-12 mo and 24 mo if no change. > 8Follow-up CT at 3, 9, 24 mo. Or PET and/or biopsy.Same as for low-risk pts. Fleischner Society criteria for SUB-SOLID lung nodule followup. Solitary pure ground-glass nodules5 mm or lessNo followup needed. >5 mm3 mo follow-up CT to confirm persistence. Then annual CT for 3 years. Part-solid nodules3 mo follow-up CT to confirm persistence. If persistent with solid component <5 mm, annual CT for at least 3 years. If solid component is 5 mm or more, biopsy or surgical resection. Consider PET-CT for lesions > 10 mm. Multiple sub-solid nodulesPure ground glass nodules [address] at 2 and 4 years. Pure ground glass nodules >5 mm without dominant lesion. [address] to confirm persistence, then annual followup CT for at least 3 years. Dominant nodule(s) with part-solid or solid component. [address] to confirm persistence. If persistent, consider biopsy or surgical resection, carlito if lesions have >5 mm solid component. Dictated and approved by: Vanessa Torres M.D. on 03/24/2017 at 16:23 (03/24/17) CT ABDOMEN AND PELVIS WITH CONTRAST IMPRESSION: 1. Perforated acute diverticulitis with intra-abdominal abscess as above. Given the location posterior to the sigmoid colon and the bladder, this is likely not amenable to percutaneous drainage. Surgical consultation recommended. 2. Multiple foci of pneumoperitoneum. It is unclear whether there is a solitary perforated region of the sigmoid colon in the region of the abscess or if there may be a second bowel perforation more proximally in the left lower quadrant.These findings were discussed with Dr. Moreno at 4:27 PM on 03/24/17. 3. 1.0 cm diameter cystic lesion within the body of the pancreas. This is new when compared with the prior study dated 09/16/16. Differential considerations include both neoplastic and nonneoplastic cystic lesions. 4. Cholelithiasis. No acute cholecystitis. 5. Severe wedge compression deformity at L1 likely pathologic in nature given the expansile lytic lesion in this vertebral body on the study dated 09/16/16. Dictated and approved by: Vanessa Torres M.D. on 03/24/2017 at 16:24 X-RAY CHEST ONE VIEW, PORTABLE IMPRESSION: New ET tube, enteric tube, and left-sided IJ CVC in expected positions. New left pleural effusion with left basilar atelectasis. Dictated by: Bang Chung M.D. on 03/25/2017 at 7:54 Approved by: Bang Chung M.D. on 03/25/2017 at 7:56 X-RAY CHEST ONE VIEW, PORTABLE IMPRESSION: Decreased lung volumes, with patchy left midlung atelectasis. Dictated by: Darius Molina M.D. on 03/26/2017 at 8:30 Approved by: Darius Molina M.D. on 03/26/2017 at 8:33 . Additional Diagnostics ABG DateTimeAnalyzed 03:52:04 -_ pH ____7.429 - 7.350 7.450 pCO2 ___28.7__ -mmHg 35.0 45.0 pO2 ___92.1__ -mmHg 69.0 116 HCO3- ___19.0__ -mmol/L 22.0 26.0 . ABG DateTimeAnalyzed 05:20:00 -_ pH 7.475 pCO2 33.8 pO2 94.1 HCO3 24.6 Assessment & Plan 71 year old gentleman with a history of CAD with 2 stents, COPD, hyperlipidemia , and right-sided renal cell carcinoma (s/p nephrectomy in October 2016) currently treated with Pazopanib presenting to the CCU hypotensive and intubated status post sigmoid colectomy with descending colostomy for perforated diverticulitis. Hypotension, acute. Active -Likely stress reaction secondary to perforated bowel with associated intra- abdominal abscess. Minimal blood loss noted during surgery. -Pt hypertensive at baseline. Transferred to CCU post-op requiring pressor support. (received phenylephrine in the OR) -Vital signs currently stable as of today patient is 5.4 L positive, with 4 L output overnight, no longer requiring pressors -IV fluids discontinued, TPN started on 03/27 -IV Lasix discontinued -Continue Albumin support today -Continue TPN Perforated diverticulitis with intra-abdominal abscess. S/P sigmoid colectomy and descending colostomy, active -Patient continues with increased pain in the abdomen noted by grimacing with palpation. Requiring increased amounts of fentanyl. -Ostomy with induration and some retraction, possibly necrotic, surgery continues to follow and does not see a need for revision at this time. -[place] and ARCELIA drain should remain for now. -Continue IV Zosyn -Continue Micafungin for fungal coverage Coronary artery disease, chronic. Present on admission. stable. -Pt with prior MO and two stents. Presented with mild chest pain with negative cardiac enzymes and no acute ischemic changes noted on ECG. -Continue home simvastatin and aspirin when able -Continuous cardiac monitoring. Acute Hypoxic Respiratory Failure due to surgery and COPD, chronic. Present on admission. stable. -Pt intubated and sedated in the CCU. At presentation he did not appear to be in acute exacerbation. -Continue ventilator support, pressure support trial as able (appreciate ICU/ Pulmonology consult assist. Will followup with recommendations) -Continue fentanyl for sedation, wean as tolerated -Patient should likely remain intubated regardless of progress until ostomy is working properly and we can be sure revision is not necessary Renal cell carcinoma of right kidney, chronic. Presumed stable. -Pt is s/p nephrectomy in October 2016, currently treated with Pazopanib and dexamethasone. -CT abd/pelvis showed a renal cyst as above. -Resume oral medications when able -If pt remains intubated, will likely add IV steroid Diabetes mellitus, type 2, chronic. Present on admission. Presumed stable. -Serum glucose 114 at presentation -Current outpatient therapy is Metformin 500mg PO BID -Hold Metformin -Continue tight glucose control. Per recommendations of general surgery if > 180 use insulin drip. Hypertension, chronic. Present on admission. Stable -Pt currently maintaining blood pressures without the use of pressors -Blood pressures remain low, but stable -Held home antihypertensives: Lisinopril 40mg PO daily, Metoprolol succinate 50mg PO daily Hyperlipidemia, chronic. Present on admission. Presumed stable. -Continue home dose statin (Simvastatin 20mg PO HS) when able GI Prophylaxis: H2 saw VTE Prophylaxis: Sub-Q Heparin (Unfractionated) VTE Mechanical Devices: Intermittant Pneumatic CD Resuscitation Status: CPR: Attempt Resuscitation Attending Statement The patient was seen and examined together with Dr. Suggs on 03/29/17 and I agree with the history, exam and plan as outlined in the note above. Mode Suggs DO Mar 29, 2017 11:32 Timothy Lovelace Mar 29, 2017 17:29
--- NOTE | 2017-03-29 11:47 | NUR ---
Social Work: Initial Assessment/Multidisciplinary Rounds D: Per EMR review, pt is a perferated diverticulitis. Pt is Medicare with for Life Supplement; pt has no LTC or VA benefits, per . GENIE is Augustina Saldivar, , . PCP is listed as Dr. Vik Sagastume. Advanced directives not completed. Readmit score is low, 2/8. Pt discussed in multidisciplinary rounds. Pt remains in CCU, hospitalist team is consulting with surgery and is determining when is the appropriate time to extubate. TAX LAWYER met with the patient's at bedside. Sw role explained, contact information and d/c planning checklist provided. See initial assessment. Pt lives in [place] with spouse. Pt was previously using a cane for ambulation. Pt was I with self-care and ADLs, continuing to drive. Pt had never had HH or skilled rehab. Pt's discharge possibilities/needs reviewed including possible SNF versus home health. Pt's understands that the pt will likely need some kind of supportive service that is still to be determined. She requested a list of local facilities as family has been planning that pt may need SNF care. SNF/HH CHOICE LIST PROVIDED. At this time their preference is for [facility]. TAX LAWYER informed her that a referral would be made once pt's needs for this level of care was established and the providers wrote for orders to refer. She understands. Case management will follow up with the pt's and patient when discharge planning is appropriate. A: Pt who remains in CCU. P: Evolving; TAX LAWYER to continue to follow to assess for needs. Pt's 's preference is for SNF at [facility] if pt requires this level of care. [facility] Dinero Addendum: 03/29/17 at 1155 by TORSTEN COTO Amended: Links added.
[2017-03-29] MEDS ORDERED: Midazolam 100 mg/100 mL Premix IV PRN (13:05)
[2017-03-29] MEDS: Dextrose 5% Lactated Ringer's 1,000 ML IV SCH (13:06)
--- NOTE | 2017-03-29 13:13 | PROG NOTE ---
[address] [address] PROGRESS NOTE PATIENT: JOSAFAT SOLIS : 1945 MR#: [id number] ADMIT: 03/24/2017 JOB ID: [id number] DATE: 03/29/2017 PULMONARY CRITICAL CARE PROGRESS NOTE: This patient is a 71-year-old man with history of renal cell carcinoma, status post resection and oral chemotherapy, presenting with sigmoid diverticulitis with perforation and abscess, septic shock, and respiratory failure. The patient was seen and evaluated with resident physician, Josafat Jama DO. Please refer to his separate detailed note for additional information. The following is a brief attending note. INTERVAL HISTORY: He did well on a spontaneous breathing trial this morning, had pressure support of 5/5. He has been on Lasix drip all day yesterday and his blood pressures are drifting lower this morning and had a brief episode of hypotension to 70s systolic even after stopping the Lasix drip. REVIEW OF SYSTEMS: Could not be obtained since patient is intubated and sedated. PHYSICAL EXAMINATION: Vital signs reviewed. T-max was 37.9 overnight. FiO2 30%, PEEP 5 cm. Blood pressure as low as 70s-80s systolic but currently in the 90s-100 systolic. General: Intubated, sedated, not responsive. Chest clear to auscultation. Abdomen ostomy was briefly looked at and appears dark red in color. LABORATORY DATA: Labs reviewed. IMAGING: Chest x-ray reviewed and shows improving small bilateral effusions. ASSESSMENT AND RECOMMENDATIONS: 1. Septic shock - resolved. 2. Perforated sigmoid diverticulitis with diverticular abscess, status post sigmoid colectomy with descending colostomy on March 24. 3. Acute hypoxic respiratory failure on mechanical ventilation since March 20. 4. Renal cell carcinoma, status post nephrectomy, on oral chemotherapy with pazopanib which has been held for this hospitalization. 5. Thrombocytopenia - stable, likely due to sepsis. A 71-year-old man with history of renal cell carcinoma, status post recent nephrectomy, on oral chemotherapy presenting with perforated sigmoid colon and diverticular abscess for which he underwent emergent colonic resection and descending colostomy creation on March 24. He has been off pressors for many days but has been significantly volume overloaded and has been aggressively diuresed for the last few days. He has been doing relatively well on a spontaneous breathing trial today but then developed hypotension. We treated his hypotension with albumin and IV fluid bolus and he seems more stable currently. Discussed with Surgery and they are okay with us proceeding with extubation if he is otherwise ready. From a bowel standpoint, he still does not have bowel tones, or passing gas. He is getting TPN for nutrition. For antibiotics, he is getting Zosyn and micafungin and procalcitonin has been trending down. I am going to reassess this afternoon with a brief spontaneous breathing trial and plan on extubating him if that goes well. He did have a left lower extremity arterial duplex to evaluate for a colder appearing left foot compared to the right and this was reportedly normal. He is on appropriate DVT and GI prophylaxis. CRITICAL CARE TIME: 45 minutes.
--- NOTE | 2017-03-29 14:44 | NUR ---
Inpatient Wound and Ostomy Nurse No skin breakdown or erythemic areas noted. Ostomy remains dark and retracted with minimal output. CWON available for ostomy support once patient is extubated and ready for education.
--- NOTE | 2017-03-29 16:22 | DRSVH ---
PROCEDURE: US DUPLEX DOPPLER UNILATERAL LEG ARTERIES, LEFT INDICATIONS: Cold L leg TECHNIQUE: Color and pulse Doppler interrogation was performed of the left lower extremity arterial system, with image documentation. COMPARISON: [facility], US, US ABDOMEN COMPLETE, 09/13/2016, 8:35 AM. FINDINGS: Vascular Ultrasound Procedure Report Findings(Artery of Lower Extremity)(Left) Common Femoral Artery(Distal) Velocity: 110.70 cm/s Profunda Femoris Artery(Proximal) Velocity: 82.60 cm/s Superficial Femoral Artery(Proximal) Velocity: 76 cm/s Superficial Femoral Artery(Mid-longitudinal) Velocity: 70.70 cm/s Superficial Femoral Artery(Distal) Velocity: 59.60 cm/s, 58.40 cm/s Popliteal Artery(Mid-longitudinal) Velocity: 46.70 cm/s Posterior Tibial Artery(Distal) Velocity: 25.70 cm/s, 20.80 cm/s Dorsalis Pedis Artery(Distal) Velocity: 31 cm/s Triphasic waveforms from the common femoral - popliteal artery. Biphasic waveforms in the posterior t ibial and anterior tibial/dorsalis pedis. Greyscale findings: Mild less moderate atheromatous plaque. IMPRESSION: No sonographic evidence of hemodynamically significant stenoses. Dictated by: Bang Chung M.D. on 03/29/2017 at 16:19 Approved by: Bang Chung M.D. on 03/29/2017 at 16:21
--- NOTE | 2017-03-29 17:32 | NUR ---
Note Period of low SBP at 70-80 with MAP 55-60 this morning- consulted with MD- Lasix drip was stopped. Patient received a dose of albumin 25GM IV and a bolus of LR 500ml over 1h per MD verbal order- symptoms resolved and patient responded well. Patient continued to have a good urine output through [place] catheter total of 2100 ml in 12h shift. Ventilator pressure support trail this morning initially patient tolerated PS well but with his BP decreased and unstable vitals trail was stopped. Resumed PS trail after patient was stabilized per MD verbal order patient did not tolerated second PS trial for very long. He appeared to be tired , patient was taking 15-20 breaths per min but shallow with 150-250ml tidal volume , oxygen saturation decreased quickly to 88-90% ranges- MD aware- trailed was stopped and patient was placed on previous PRVC ventilator mode- please see RT documentation ventilator specific details. Abdominal incision remained stable with incisional stapes intact- no drainage was noted. ARCELIA to low continues suction with small to moderate amount of pink/serum colored drainage. Left abdomen colostomy no output this shift. OG to low continues suction with small amount of clear to light green/brown drainage.
[2017-03-29] MEDS: Total Parenteral Nutrition 1 BAG IV SCH (20:21)
[2017-03-29] MEDS: TPN Per Pharmacist XX SCH (20:21)
[2017-03-30] VITALS (15 sets, daily range): BP systolic 117–148; BP diastolic 61–96; PULSE 91–103; RESP 11–23; O2SAT 95–98
[2017-03-30] MEDS: fentaNYL 2,500 mCg/250 mL 2,500 MCG in IV Premix 1 EACH IV SCH (02:00)
[2017-03-30] MEDS: Chlorhexidine 0.12% 15 mL Oral Solution MT SCH ×5 (04:20→20:38)
[2017-03-30 04:35] LABS: Mean Corpuscular Hemoglobin 30.5 pg (27.0-35.0); Mean Corpuscular Volume 91.8 fL (81-100)
--- NOTE | 2017-03-30 04:56 | ABG ---
DateTimeAnalyzed 04:49:00 -_ pH ____7.443 - 7.350 7.450 pCO2 ___38.4__ -mmHg 35.0 45.0 pO2 ___98.9__ -mmHg 69.0 116 HCO3- ___25.9__ -mmol/L 22.0 26.0 ABE ____2.2__ -mmol/L -2.0 2.0 tHb ___10.0__ -g/dL 12.0 18.0 O2Hb ___96.0__ -% COHb ____0.8__ -% 0.0 1.5 MetHb ____0.8__ -% 0.4 1.5 sO2 ___97.6__ -% 25.0 FIO2 ___30.0__ -% PRVC 10 - PEEP ____5.0__ -cmH2O Set_RR ___10.0__ -b/min Vt __480.0__ -L Drawn By MM - Date/Time Notified____ 04:56:00 -_ Spontaneous_RR ___10.0__ -b/min Oxygen Device 1 VENTILATOR - Notified Whom _DR FIELD - B 761 -mmHg tO2 ___13.6__ -Vol% Lion test N/A -
[2017-03-30 05:47] LABS: Phosphorus 3.4 mg/dL (2.5-4.9)
--- NOTE | 2017-03-30 06:09 | NUR ---
P) LOC/Respiratory/ incision Pt. again had a very low grade temp this evening, T-max 37.2, in spite of much less sedation than yesterday he is much less responsive, grimacing only to pain, no purposeful movement, did not spontaneously open his eyes. Lungs continue coarse with some scattered crackles, stoma has a small amount of drainage, appears to be old blood, foul smelling. Midline incision remains well approximated but has developed about a 1/2" wide pink border all the way around it, radha in place, no drainage. ARCELIA continues to drain sero-sanguinous fluid, blood sugars WNL. I) Passive cooling and chlorhexadine bath, meds per DrLeonila's orders, turning q2h and floating heels. E) Resting quietly.
--- NOTE | 2017-03-30 06:19 | NUR ---
P) Cardiac Cardiac rhythm appeared to be afib tonight. I) Obtained EKG, changed tele patches. E) EKG confirmed it is still sinus but has odd artifact in many leads.
[2017-03-30] MEDS: Micafungin Inj 100 MG in 0.9% Sodium Chloride 100 ML IV SCH (07:39)
[2017-03-30] MEDS: Heparin 5,000 Unit/mL Inj SUBQ SCH ×2 (07:39→16:51)
[2017-03-30] MEDS: Famotidine Inj 20 MG in IV Premix 1 EACH IV SCH ×2 (07:39→20:38)
[2017-03-30] MEDS: Piperacillin-Tazo 3.375 Gm Inj 3.375 GM in Dextrose 5% Minibag Plus 50 ML IV SCH ×2 (07:40→16:51)
--- NOTE | 2017-03-30 08:09 | PROG NOTE ---
[address] [address] PROGRESS NOTE PATIENT: JOSAFAT SOLIS : 1945 MR#: [id number] ADMIT: 03/24/2017 JOB ID: [id number] DATE: 03/30/2017 SUBJECTIVE: The patient is seen in followup. There were no acute events overnight. He remains intubated and sedated. OBJECTIVE: Temperature 36.8, pulse 90, blood pressure 117/63, saturation 98% on 30% FiO2. General: He is sedated and intubated. Chest: Coarse breath sounds. Heart: Regular rate and rhythm. No murmurs. Abdomen is mildly distended but soft. His midline wound has no drainage. ARCELIA drain is mostly serous. Colostomy in the left mid abdomen is stable with superficial mucosal necrosis, no significant output. LABORATORIES: White count is 3.4, hematocrit 29.2, platelets 109. Creatinine 0.61. Glucose 144, albumin 2.4. ASSESSMENT AND PLAN: A 71-year-old man with severe perforated diverticulitis of the sigmoid with abscess and feculent peritonitis status post Diallo procedure. He remained stable from a surgical standpoint. His colostomy does not need re-intervention and should heal with conservative management. TPN is going while we await return of bowel function. Broad-spectrum antibiotics should be continued. Extubation is fine any time he is medically ready for that.
--- NOTE | 2017-03-30 08:56 | DRSVH ---
PROCEDURE: X-RAY CHEST ONE VIEW, PORTABLE ([id number]) INDICATIONS: Respiertory failure TECHNIQUE: One view of the chest was acquired. COMPARISON: [facility], CR, XR CHEST 1VW (PORTABLE), 03/29/2017, 9:58. [facility], CR, XR CHEST 1VW (PORTABLE), 03/28/2017, 5:03. [facility], CR, XR CHEST 1VW (EMILY BLE), 03/27/2017, 5:05. FINDINGS: Surgical changes and devices: ETT is present, as before, in expected location. NGT extends below the level of the film. Lungs and pleura: No pleural effusions or pneumothorax. Left basilar opacification with associated h emidiaphragm obscuration is unchanged. Mediastinum: Mediastinal contours appear normal. Heart size is normal. Bones and chest wall: No suspicious bony lesions. Overlying soft tissues appear unremarkable. IMPRESSION: No change in left basilar pneumonia. Continued plain film surveillance is recommended to ensure resolution, and to exclude underlying or central malignancy. Dictated by: Alcides Quick M.D. on 03/30/2017 at 8:54 Approved by: Alcides Quick M.D. on 03/30/2017 at 8:54
--- NOTE | 2017-03-30 10:27 | PCM.PHAPRO ---
Progress tpn TPN #4 I. volume/hd BP/HR stable, I/O balanced, weight stable. II. Chem lytes WNL and w/o trends tick in ALT noted, alk phos w/o trend Triglycerides in high 300's III. Glucose <150 IV. Macronutrients/ Advance amino acids and dextrose towards goal Hold lipids to 20g and recheck TGs PARENTERAL NUTRITION ORDERS 4 30-Mar-17 Standard Hang Time: 2100 Substrates Total kcal: 1318 AMINO ACIDS 85 g DEXTROSE 170 g Total Volume (mL): 1800 LIPIDS 20 g Sterile Water for Injection mL To Infuse Over (hrs): 24 Total Volume 1800 mL At at a rate of (mL/hr): 75 Additives Sodium Chloride 60 mEq "typical" daily requirements Sodium Acetate 60 mEq Sodium 50-120mEq Potassium Chloride 40 mEq Potassium 60-120mEq Potassium Phosphate 40 mEq Phosphate 20-40mEq Calcium Gluconate 8 mEq Magnesium 8-32mEq Magnesium Sulfate 16 mEq Calcium 9-22mEq Acetate* 80-120mEq Chloride* 80-120mEq Regular Insulin 0 units *Depending on acid-base status Famotidine 0 mg Multivitamins 1 std dose Insulin Regimen Trace Elements 1 std dose none Thiamine mg Regular Low Intensity Subcut Folic Acid mg Regular Medium Intensity Subcut Ascorbic Acid mg Regular High Intensity Subcut Regular Insulin Infusion Other: Special Instructions: To be infused via central line only. For delay or inturruption of TPN contact the pharmacist for alternative replacement solution. Signature Date: Humberto Saldivar [address] [facility] Phi Marquez Pharm D Mar 30, 2017 10:27
--- NOTE | 2017-03-30 12:53 | PCM.PNMED ---
Subjective Date of Service Mar 30, 2017 Subjective ICU Progress Note Patient is a 71 year old male with a history of CAD with 2 stents, COPD, hyperlipidemia, and right-sided renal cell carcinoma (s/p nephrectomy in October 2016) currently treated with Pazopanib presenting to the CCU hypotensive and intubated status post sigmoid colectomy with descending colostomy for perforated diverticulitis. Exam Vital Signs Vital Sign - Last Date Time Temp Pulse Resp B/P Pulse Ox O2 Delivery O2 Flow Rate FiO2 03/30/17 12:11 36.8 94 12 132/69 95 Mechanical Ventilator 30 Intake and Output 03/29/17 03/29/17 03/30/17 Cumulative From/Thru 15:00 23:00 07:00 03/24/17 14:24 - 03/30/17 06:50 Intake Total 1254 ml 1361 ml 58452 ml Output Total 2225 ml 1575 ml 54342 ml Balance -971 ml -214 ml 4245 ml Intake Oral 0 ml IV Total 1214 ml 1361 ml 65782 ml Tube Feeding 40 ml TPN/PPN 2509 ml Tube Irrigant 40 ml 80 ml Output Urine Total 2100 ml 1500 ml 71487 ml Stool Total 15 ml Gastric Drainage Total 50 ml 20 ml 410 ml Drainage Total 75 ml 55 ml 1015 ml Estimated Blood Loss 120 ml Exam General: Sedated and intubated, no acute distress. Head: Normocephalic, atraumatic. External ears normal. Eyes: PERRLA, EOMI. Anicteric sclerae. Mouth: Mouth normal, Mucous membranes moist/pink Neck: Neck supple with full range of motion. Chest& Lungs: Clear to auscultation bilaterally. Cardiovascular: Regular rate/rhythm, Normal S1, Normal S2, No murmurs/rubs/ gallops Abdomen: Tender, hypoactive bowel sounds. Vertical abdominal incision with surrounding erythema with ARCELIA drain in place with serosanguineous fluid. Ostomy dark, partly retracted, draining dark fluid. Musculoskeletal: Normal range of motion Extremities: Mild 1+ lower extremity pitting edema bilat. Left leg cold, weak pulses. Neurological: Sedated and intubated. Lab and Diagnostics Result Diagram: 03/30/1742403/30/17424 Microbiology Blood culture 2/3 bottles positive for Gram + cocci X-Rays, CTs and MRIs (8/11/17) X-RAY CHEST ONE VIEW, PORTABLE IMPRESSION: No acute pulmonary process. Dictated and approved by: Windy Larsen M.D. on 03/24/2017 at 14:05 (03/24/17) CT ANGIO CHEST PULMONARY EMBOLISM IMPRESSION: 1. No acute pulmonary embolus. 2. 4 mm groundglass nodule. No prior comparisons are available. Please see followup guidelines below. 3. Please see detailed description of abdominal findings on the associated CT of the abdomen from the same date. ADDENDUM: Fleischner Society criteria for SOLID lung nodule followup. Nodule size (mm)Low-risk patientHigh-risk [id number] follow-up neededFollow-up at 12 mo; if no change, no further follow-up>1-3Oluoas-az CT at 12 mo; if no change, no further follow-up needed.Initial follow-up CT at 6-12 mo, then 18-24 mo if no change. >6-8Initial follow-up CT at 6-12 mo, then 18-24 mo if no change. Initial follow-up CT at 3-6 mo, then 9-12 mo and 24 mo if no change. > 8Follow-up CT at 3, 9, 24 mo. Or PET and/or biopsy.Same as for low-risk pts. Fleischner Society criteria for SUB-SOLID lung nodule followup. Solitary pure ground-glass nodules5 mm or lessNo followup needed. >5 mm3 mo follow-up CT to confirm persistence. Then annual CT for 3 years. Part-solid nodules3 mo follow-up CT to confirm persistence. If persistent with solid component <5 mm, annual CT for at least 3 years. If solid component is 5 mm or more, biopsy or surgical resection. Consider PET-CT for lesions > 10 mm. Multiple sub-solid nodulesPure ground glass nodules [address] at 2 and 4 years. Pure ground glass nodules >5 mm without dominant lesion. [address] to confirm persistence, then annual followup CT for at least 3 years. Dominant nodule(s) with part-solid or solid component. [address] to confirm persistence. If persistent, consider biopsy or surgical resection, carlito if lesions have >5 mm solid component. Dictated and approved by: Vanessa Torres M.D. on 03/24/2017 at 16:23 (03/24/17) CT ABDOMEN AND PELVIS WITH CONTRAST IMPRESSION: 1. Perforated acute diverticulitis with intra-abdominal abscess as above. Given the location posterior to the sigmoid colon and the bladder, this is likely not amenable to percutaneous drainage. Surgical consultation recommended. 2. Multiple foci of pneumoperitoneum. It is unclear whether there is a solitary perforated region of the sigmoid colon in the region of the abscess or if there may be a second bowel perforation more proximally in the left lower quadrant.These findings were discussed with Dr. Moreno at 4:27 PM on 03/24/17. 3. 1.0 cm diameter cystic lesion within the body of the pancreas. This is new when compared with the prior study dated 09/16/16. Differential considerations include both neoplastic and nonneoplastic cystic lesions. 4. Cholelithiasis. No acute cholecystitis. 5. Severe wedge compression deformity at L1 likely pathologic in nature given the expansile lytic lesion in this vertebral body on the study dated 09/16/16. Dictated and approved by: Vanessa Torres M.D. on 03/24/2017 at 16:24 X-RAY CHEST ONE VIEW, PORTABLE IMPRESSION: New ET tube, enteric tube, and left-sided IJ CVC in expected positions. New left pleural effusion with left basilar atelectasis. Dictated by: Bang Chung M.D. on 03/25/2017 at 7:54 Approved by: Bang Chung M.D. on 03/25/2017 at 7:56 X-RAY CHEST ONE VIEW, PORTABLE IMPRESSION: Decreased lung volumes, with patchy left midlung atelectasis. Dictated by: Darius Molina M.D. on 03/26/2017 at 8:30 Approved by: Darius Molina M.D. on 03/26/2017 at 8:33 . Additional Diagnostics ABG DateTimeAnalyzed 03:52:04 -_ pH ____7.429 - 7.350 7.450 pCO2 ___28.7__ -mmHg 35.0 45.0 pO2 ___92.1__ -mmHg 69.0 116 HCO3- ___19.0__ -mmol/L 22.0 26.0 . ABG DateTimeAnalyzed 05:20:00 -_ pH 7.475 pCO2 33.8 pO2 94.1 HCO3 24.6 Assessment & Plan Patient is a 71 year old gentleman with a history of CAD with 2 stents, COPD, hyperlipidemia, and right-sided renal cell carcinoma (s/p nephrectomy in October 2016) currently treated with Pazopanib presenting to the CCU hypotensive and intubated status post sigmoid colectomy with descending colostomy for perforated diverticulitis. Acute hypoxic respiratory failure - Pt intubated and sedated in the OR, remains on mechanical ventilation in part due to COPD. At presentation he did not appear to be in acute exacerbation. Tolerating pressure support trial well today. Barrier to extubation includes significant need for pain control and mental status. He may need to be on a Dilaudid AUTOMATIC LOG CUT OFF SAWYER with PRN IV pushes if he is too weak or otherwise unable to use the AUTOMATIC LOG CUT OFF SAWYER. Will hold off on extubation before ruling out stroke with CT head. -Continue ventilator support, pressure support trial today. - Wean sedation as tolerated Acute encephalopathy. - Pt remains unresponsive despite decreasing sedation. Will check CT brain - Continue to wean sedation - CT brain ordered Perforated diverticulitis with intra-abdominal abscess, s/p sigmoid colectomy and descending colostomy - Pt has been experiencing significant abdominal pain postoperatively, requiring increasing amounts of fentanyl. Stoma appears dusky and slightly necrotic; Surgery is aware and does not see need for revision yet. Pt has hx of renal cell carcinoma on pazopanib PO, with recent ostomy placement, and is on TPN. At significant risk for fungal infection. Will continue micafungin. - Wean fentanyl and midazolam as tolerated - Continue Zosyn and Micafungin - Fungitell and fungal blood cultures - CT abdomen ordered Hypotension, acute. Improving. - Pt no longer requiring pressor support with norepi but still somewhat hypotensive overnight with MAP in 70s. Possibly due to infection. WBC low due to immunotherapy but pt had fevers during hospitalization and procal is 1.13. Blood cultures negative to date. Currently on TPN. - Continue TPN - Continue Zosyn and Micafungin Thrombocytopenia, acute. Stable - Platelets appear stable around 100. Was likely in part due to hemodilution from aggressive hydration and thrombocytopenia in the setting of acute sepsis - Monitor CBC Possible left leg ischemia, unknown acuity. Ruled out. - Noted left leg coolness and poor pulses on 03/29. R leg doppler showed no sonographic evidence of hemodynamically significant stenoses. GI Prophylaxis: H2 saw VTE Prophylaxis: Sub-Q Heparin (Unfractionated) VTE Mechanical Devices: Intermittant Pneumatic CD Resuscitation Status: CPR: Attempt Resuscitation Attending Statement I have seen and examined this patient with the resident physician. Vital signs , labs, imaging have been reviewed. I agree with the assessment and plan above. Please refer to my separately dictated progress note for any modifications to above. Eloise Linder M.D. Pulmonary and Critical Care medicine Pager [phone] Humberto Jama Mar 30, 2017 12:53 Eloise Linder MD Mar 31, 2017 08:18
--- NOTE | 2017-03-30 13:20 | PROG NOTE ---
[address] [address] PROGRESS NOTE PATIENT: JOSAFAT SOLIS : 1945 MR#: [id number] ADMIT: 03/24/2017 JOB ID: [id number] DATE: 03/30/2017 PULMONARY CRITICAL CARE PROGRESS NOTE: The patient is a 71-year-old man with history of renal cell carcinoma, status post resection, on oral chemotherapy, presenting with sigmoid diverticulitis with perforation and abscess, complicated by septic shock and respiratory failure. The patient was seen and evaluated with resident physician, Josafat Jama DO. Please refer to his separate detailed note for additional information. INTERVAL HISTORY: No major overnight events but he continues to be unresponsive despite lightening sedation. REVIEW OF SYSTEMS: Could not be obtained since the patient is intubated. PHYSICAL EXAMINATION: Vital signs reviewed. Afebrile. He is on 30% FiO2 and 5 cm of PEEP. He did well on a pressure support trial of 6/5 with good tidal volumes and respiratory rate. General: Intubated, sedated. He is unresponsive even when sedation is lightened. He becomes somewhat agitated and moves arms and legs but does not have any purposeful movements and does not follow commands. LABORATORIES: Reviewed. IMAGING: Reviewed. Chest x-ray shows bilateral effusions. ASSESSMENT AND RECOMMENDATIONS: 1. Perforated sigmoid diverticulitis with abscess, status post emergent colonic resection with descending colostomy on March 24. 2. Acute hypoxic respiratory failure, on mechanical ventilation since March 20. 3. Septic shock -- resolved. 4. Renal cell carcinoma, status post nephrectomy, on oral chemotherapy with pazopanib, which has been held for this hospitalization. 5. Acute encephalopathy. A 71-year-old man with renal cell carcinoma, status post resection, on oral chemotherapy, presenting with perforated sigmoid diverticulitis and septic shock. He has been off pressors for many days, and we have made some progress with diuresis and ventilator weaning. He is doing very well on a pressure support trial today but continues to be unresponsive despite his sedation being cut to almost nothing. We are going to go ahead with a head CT to rule out acute neurologic events that would affect his mentation. At the same time will get an abdominal CT to followup on his abscess and diverticulitis. In the meantime, from a respiratory standpoint alone, he is ready for extubation, passing SBTs but will need to see some neurologic improvement before we do this. For antibiotics, he is on Zosyn and micafungin. He is on appropriate DVT and GI prophylaxis. CRITICAL CARE TIME: 45 minutes.
--- NOTE | 2017-03-30 13:32 | NUR ---
NUTRITION FOLLOW UP: ASSESS: 71 YO M admitted to CCU with perforated diverticulitis, pneumoperitoneum with peritonitis, s/p exploratory laparotomy with sigmoid/descending colon resection, Diallo's and end-descending colostomy. Pt remains intubated. TPN appears well tolerated. He has been off pressors for many days, and progress has been made with diuresis and ventilator weaning. He is doing very well on a pressure support trial today but continues to be unresponsive despite his sedation being cut to almost nothing. Head CT ordered to rule out acute neurologic events that would affect his mentation, as well as an abdominal CT to followup on his abscess and diverticulitis. In the meantime, from a respiratory standpoint alone, he is ready for extubation, passing SBTs but will need to see some neurologic improvement first. TPN macronutrients advanced today. PMHx: Renal cell cancer with current chemotherapy, immunosuppression, R. nephrectomy, CAD, COPD, HTN, dyslipidemia, type 2 diabetes, hiatal hernia, GI bleed. DIET: NPO. TPN: Dex 100 g, AA 50 g, Lipids 20 g providing 740 kcal, 50 g protein. LABS: Reviewed. Cr 0.61, Glu 144, Total Bili 2.8, Alb 2.4, Triglycerides 393, Procalcitonin 1.13. MEDICATIONS: Reviewed. Fentanyl, Albumin. GI: Minimal stool via colostomy. SKIN: The ostomy site appears abnormal, does not need to be revised yet; surgery following. ANTHROPOMETRICS: Current Wt: 90.1 kg, BMI: 26.0 kg/m2. IBW: 83.64 kg (105% IBW) ESTIMATED NEEDS (GI SURGERY, VENT, POSS. WOUNDS): Calories: 7540-9420 kcal (22-25 kcal/kg BW) Protein: 132-159 g protein (1.5-1.8 g/kg BW) Fluid: Approx. 2643 mL (30 mL/kg BW) NUTRITION DIAGNOSIS: 1) Inadequate oral intake related to altered GI function, as evidenced by colectomy/colostomy, NPO status - PERSISTS. INTERVENTION: 1) TPN macronutrients advanced today as follows: dextrose 170 g, amino acid 85 g , lipids 40 g to provide 1318 kcal, 85 g protein; meeting 68% calorie, 64% protein. 2) Slowly increase TPN to goal of dextrose 290 g, amino acid 145 g, lipids 55 g, providing 2116 kcal, 145 g protein, sufficient to meet 100% nutrient needs. 3) Will omit lipids in TPN order tomorrow due to rising triglyceride levels. MONITOR/EVALUATE: NPO/vent status, labs, TPN tolerance/advance, GI/nutrition status. Follow per high nutrition risk guidelines.
--- NOTE | 2017-03-30 15:48 | PATH ---
SURGICAL PATHOLOGY Attending Physician:Misael Mast CASE STATUS: Signed Out PATIENT NAME: JOSAFAT SOLIS PID: [id number] : 1945 DATE COLLECTED:03/24/2017 00:00 SPECIMEN: Colon, Segment Resection, Non-Tumor CLINICAL HISTORY: 1). SIGMOID COLON: SUTURE JACOBS PROXIMAL END FINAL DIAGNOSIS: 1.SIGMOID COLON, SIGMOID COLECTOMY: SEGMENT OF COLON WITH DIFFUSE DIVERTICULOSIS, SEROSITIS, AND SUPPURATIVE MESENTERITIS CONSISTENT WITH RUPTURED DIVERTICULITIS. Negative for dysplasia or malignancy. ICD10 K57.9 GROSS DESCRIPTION: The specimen is received in formalin, labeled with the patient's name, sublabeled as sigmoid colon, and consists of a segment of colon (length- 17.8 cm, proximal diameter-2.3 cm, distal diameter - 3.3 cm) with attached adipose tissue (up to 6.5 cm in depth). A black suture indicates the proximal end. The specimen is received opened with the resection margins stapled. The mucosa is do-park with intact distorted folds and contains diffuse diverticuli. No nodules, masses or lesions are identified. Gross perforation is not appreciated in this previously opened specimen. Ink code: black-resection margin. Section code: (A) proximal resection margin, longitudinally sectioned, traffic representative; (B) distal resection margin, longitudinally sectioned, traffic representative; (C-J) colon segment, serially sectioned and submitted proximal to distal, traffic representative. 03/28/17 JM MICRO DESCRIPTION: See diagnosis. ICD-9 CODES: CPT CODES: 1: 01615 Electronically Signed Out Nomi Angel MD, Ph.D. [facility] Pathology [facility] [address], [place] [address] Technical component performed at [facility], [address] [place] [address] Ave[address], [place], [address]
--- NOTE | 2017-03-30 16:24 | DRSVH ---
PROCEDURE: CT BRAIN WITHOUT CONTRAST ([id number]) INDICATIONS: non responsive on Vent, Eval for CVA TECHNIQUE: Noncontrast 4.5 mm thick angled axial sections acquired from the foramen magnum to the vertex, with c oronal reformats. COMPARISON: None. FINDINGS: Image quality: Excellent. CSF spaces: Basal cisterns are patent. No extra-axial fluid collections. The ventricles are symmet jay in size and shape. Brain: No intracranial bleeds or masses. There is cerebral volume loss for age, with resultant vent ricular and sulcal prominence. There are periventricular and deep white matter chronic small vessel ischemic changes. There is intracranial internal carotid artery atherosclerosis. Skull and face: Calvarium and visualized facial bones appear intact, without suspicious lesions. Sinuses: Visualized sinuses and mastoids are clear. IMPRESSION: 1. No acute intracranial findings. 2. Moderate to severe findings likely associated with microvascular ischemic changes. Dictated by: Vanessa Torres M.D. on 03/30/2017 at 16:20 Approved by: Vanessa Torres M.D. on 03/30/2017 at 16:23
--- NOTE | 2017-03-30 16:36 | DRSVH ---
PROCEDURE: CT ABDOMEN AND PELVIS WITH CONTRAST ([id number]) INDICATIONS: s/p resection with ostomy, poor output and pain TECHNIQUE: After the administration of intravenous contrast, 5 mm thick sections acquired from the diaphragm to the symphysis. 5 mm coronal and sagittal reformats were acquired. For radiation dose reduction, the following was used: automated exposure control, adjustment of mA and/or kV according to patient annie e. COMPARISON: [facility], CT, CT ABD PANCREATIC PROTOCOL, 09/16/2016, 8:35. [facility], CT, CT ABD PELVIS W CON, 03/24/2017, 16:06. FINDINGS: Image quality: There are small low density bilateral pleural effusions which are new when compared wi th the CT dated 03/24/17. Consolidation or compressive atelectasis is present at the bilateral lung ba ses. Heart is normal size. No pericardial effusion. ABDOMEN: Lung bases: Lung bases are clear. Heart size is normal. Solid organs: Liver and spleen are normal in size and enhancement. 2 subcentimeter calcified gallsto bal are present in the gallbladder fundus. No gallbladder wall thickening or discrete pericholecystic fluid. Biliary system is non dilated. The pancreas is atrophic. There is an 8mm diameter cystic lesi on within . body of the pancreas the which is decreased from 1 cm in diameter on the study dated 03/24, but was not visualized on the study dated 09/16/16. The right adrenal gland and kidney are surgic ally absent. Trace low-density free fluid is present in the right renal fossa which is a new finding when compared with the CT dated 03/24/17 and is likely postoperative in nature. No left adrenal nodule s. The left kidney demonstrates normal size and enhancement. No left hydronephrosis. Peritoneum and bowel: The stomach is decompressed an NG tube is present. The small bowel demonstrate s overall normal caliber and wall thickness. The colon is decompressed. There is scattered colonic di verticular outpouchings. No discrete mucosal thickening or pericolonic fat stranding to suggest acute diverticulitis. An ostomy is present in the left lower quadrant. Trace low-density fluid is present along the left paracolic gutter. Small moderate amount of pneumoperitoneum is present, presumably sec ondary to recent intra-abdominal surgery. A right lower quadrant surgical drain is present extending into the pelvis. Nodes and vessels: No retroperitoneal or mesenteric adenopathy by size criteria. Aorta and inferior vena cava are normal in size. There are scattered atheromatous calcifications throughout the aorta a nd iliac arteries bilaterally. Miscellaneous: No ventral hernias. PELVIS: Genitourinary: Bladder is decompressed and a [place] catheter is present. Miscellaneous: No inguinal adenopathy. There is a small fat-containing right inguinal hernia. Bones: No suspicious bony lesions. Severe L1 wedge compression deformity is redemonstrated. No new w edge compression deformities. IMPRESSION: 1. Small bilateral low density pleural effusions and consolidation/atelectasis at the lung bases whic h is a new finding when compared with the prior CT dated 03/24/17. 2. No bowel obstruction or mucosal edema to suggest enteritis/colitis. 3. Diverticulosis. No acute diverticulitis. 4. Cystic mass in the body of the pancreas slightly decreased in size when compared with the study da rowan 03/24/17. Followup recommended. 5. Pneumoperitoneum, likely postoperative in nature. Dictated by: Vanessa Torres M.D. on 03/30/2017 at 16:23 Approved by: Vanessa Torres M.D. on 03/30/2017 at 16:34
[2017-03-30] MEDS: Dextrose 5% Lactated Ringer's 1,000 ML IV SCH (16:51)
--- NOTE | 2017-03-30 18:13 | NUR ---
Note Ventilator pressure support trail this morning for over 4h- patient tolerated PS well but appeared to be tiring towards the end as evidence by increased RR to mid-20 and 30 ranges and more shallow low volume breaths below 200ml. Patient remained on fentanyl and versed drips for sedation/pain control. Patient remain tender/painful to the touch to his abdomen incision area. This was especially apparent during turning and repositioning. Patient responded with increased BP, increased agitation and at times by pushing away the source of pain. Patient did not following commands his only response to stimulation was increased agitation. MD aske to decrease versed drip infusion and discontinue it if possible to see if the patient could wake to some degree. Versed drip was placed on standby this evening-- please see CCU flow sheet for drip titration.
--- NOTE | 2017-03-30 20:04 | PCM.PNMED ---
Subjective Date of Service Mar 30, 2017 Subjective Subjective: Patient is not able to adequately participate in his care at this time. Continues to grimace significantly with palpation of the abdomen. Events Overnight: No acute events overnight. ROS: Due to the patient being comatose, a review of systems was unable to be obtained. Exam Vital Signs Vital Sign - Last Date Time Temp Pulse Resp B/P Pulse Ox O2 Delivery O2 Flow Rate FiO2 03/30/17 16:00 88 148/85 96 30 03/30/17 15:20 Ventilator 03/30/17 15:20 36.7 14 Intake and Output 03/29/17 03/29/17 03/30/17 Cumulative From/Thru 15:00 23:00 07:00 03/24/17 14:24 - 03/30/17 06:50 Intake Total 1254 ml 1361 ml 60679 ml Output Total 2225 ml 1575 ml 87572 ml Balance -971 ml -214 ml 4245 ml Intake Oral 0 ml IV Total 1214 ml 1361 ml 15264 ml Tube Feeding 40 ml TPN/PPN 2509 ml Tube Irrigant 40 ml 80 ml Output Urine Total 2100 ml 1500 ml 44374 ml Stool Total 15 ml Gastric Drainage Total 50 ml 20 ml 410 ml Drainage Total 75 ml 55 ml 1015 ml Estimated Blood Loss 120 ml Exam General: Sedated and intubated HEENT: Normocephalic, atraumatic. External ears without defect. Pupils equal, round, and reactive to light and accommodation. Anicteric sclerae, moist conjunctivae. IJ in place Cardiovascular: Regular rate and rhythm with no murmurs, rubs, or gallops appreciated Pulmonary: Patient is currently on the ventilator, breath sounds are coarse due to ventilation status. Abdomen: Bowel tones present. Soft, nondistended, indurated and retracted ostomy maroon colored, draining dark fluid. Well-healing incision closed with radha, ARCELIA drain in place. Grimacing significantly with palpation of the abdomen. Extremities: No clubbing, cyanosis, edema, decreased color and warmth of the left leg compared to right. Pulses intact. Skin: Normal temperature, turgor, and texture; no rash, ulcers, or subcutaneous nodules appreciated. Neurological: Unable to assess. Normal tone, and bulk. Psychiatric: Unable to assess IVs and Medications IV Fluids 1450 mL normal saline diluted with IV medications. Medications Reviewed: Medications were reviewed in detail Medications High-risk medications include: Fentanyl Midazolam Lab and Diagnostics Result Diagram: 03/30/17 0425 03/30/17 0425 Microbiology Blood culture 2/3 bottles positive for Gram + cocci X-Rays, CTs and MRIs (03/24/17) X-RAY CHEST ONE VIEW, PORTABLE IMPRESSION: No acute pulmonary process. Dictated and approved by: Windy Larsen M.D. on 03/24/2017 at 14:05 (03/24/17) CT ANGIO CHEST PULMONARY EMBOLISM IMPRESSION: 1. No acute pulmonary embolus. 2. 4 mm groundglass nodule. No prior comparisons are available. Please see followup guidelines below. 3. Please see detailed description of abdominal findings on the associated CT of the abdomen from the same date. ADDENDUM: Fleischner Society criteria for SOLID lung nodule followup. Nodule size (mm)Low-risk patientHigh-risk [id number] follow-up neededFollow-up at 12 mo; if no change, no further follow-up>[id number] CT at 12 mo; if no change, no further follow-up needed.Initial follow-up CT at 6-12 mo, then 18-24 mo if no change. >6-8Initial follow-up CT at 6-12 mo, then 18-24 mo if no change. Initial follow-up CT at 3-6 mo, then 9-12 mo and 24 mo if no change. > 8Follow-up CT at 3, 9, 24 mo. Or PET and/or biopsy.Same as for low-risk pts. Fleischner Society criteria for SUB-SOLID lung nodule followup. Solitary pure ground-glass nodules5 mm or lessNo followup needed. >5 mm3 mo follow-up CT to confirm persistence. Then annual CT for 3 years. Part-solid nodules3 mo follow-up CT to confirm persistence. If persistent with solid component <5 mm, annual CT for at least 3 years. If solid component is 5 mm or more, biopsy or surgical resection. Consider PET-CT for lesions > 10 mm. Multiple sub-solid nodulesPure ground glass nodules [address] at 2 and 4 years. Pure ground glass nodules >5 mm without dominant lesion. [address] to confirm persistence, then annual followup CT for at least 3 years. Dominant nodule(s) with part-solid or solid component. [address] to confirm persistence. If persistent, consider biopsy or surgical resection, carlito if lesions have >5 mm solid component. Dictated and approved by: Vanessa Torres M.D. on 03/24/2017 at 16:23 (03/24/17) CT ABDOMEN AND PELVIS WITH CONTRAST IMPRESSION: 1. Perforated acute diverticulitis with intra-abdominal abscess as above. Given the location posterior to the sigmoid colon and the bladder, this is likely not amenable to percutaneous drainage. Surgical consultation recommended. 2. Multiple foci of pneumoperitoneum. It is unclear whether there is a solitary perforated region of the sigmoid colon in the region of the abscess or if there may be a second bowel perforation more proximally in the left lower quadrant.These findings were discussed with Dr. Moreno at 4:27 PM on 03/24/17. 3. 1.0 cm diameter cystic lesion within the body of the pancreas. This is new when compared with the prior study dated 09/16/16. Differential considerations include both neoplastic and nonneoplastic cystic lesions. 4. Cholelithiasis. No acute cholecystitis. 5. Severe wedge compression deformity at L1 likely pathologic in nature given the expansile lytic lesion in this vertebral body on the study dated 09/16/16. Dictated and approved by: Vanessa Torres M.D. on 03/24/2017 at 16:24 X-RAY CHEST ONE VIEW, PORTABLE IMPRESSION: New ET tube, enteric tube, and left-sided IJ CVC in expected positions. New left pleural effusion with left basilar atelectasis. Dictated by: Bang Chung M.D. on 03/25/2017 at 7:54 Approved by: Bang Chung M.D. on 03/25/2017 at 7:56 X-RAY CHEST ONE VIEW, PORTABLE IMPRESSION: Decreased lung volumes, with patchy left midlung atelectasis. Dictated by: Darius Molina M.D. on 03/26/2017 at 8:30 Approved by: Darius Molina M.D. on 03/26/2017 at 8:33 . Additional Diagnostics ABG DateTimeAnalyzed 03:52:04 -_ pH ____7.429 - 7.350 7.450 pCO2 ___28.7__ -mmHg 35.0 45.0 pO2 ___92.1__ -mmHg 69.0 116 HCO3- ___19.0__ -mmol/L 22.0 26.0 . ABG DateTimeAnalyzed 05:20:00 -_ pH 7.475 pCO2 33.8 pO2 94.1 HCO3 24.6 Assessment & Plan 71 year old gentleman with a history of CAD with 2 stents, COPD, hyperlipidemia , and right-sided renal cell carcinoma (s/p nephrectomy in October 2016) currently treated with Pazopanib presenting to the CCU hypotensive and intubated status post sigmoid colectomy with descending colostomy for perforated diverticulitis. Perforated diverticulitis with intra-abdominal abscess. S/P sigmoid colectomy and descending colostomy, active -Patient continues with increased pain in the abdomen noted by grimacing with palpation. Requiring fentanyl. -Ostomy with induration and some retraction, surgery continues to follow and does not see a need for revision at this time. -[place] and ARCELIA drain should remain for now. -Continue IV Zosyn and Micafungin -CT abdomen shows bilateral pleural effusions with atelectasis, no bowel obstruction, diverticulosis, cystic pancreatic mass (decreased), and pneumoperitoneum (likely postoperative) Acute Hypoxic Respiratory Failure due to surgery and COPD, chronic. Present on admission. stable. -Pt intubated and sedated in the CCU. At presentation he did not appear to be in acute COPD exacerbation. -Continue ventilator support, pressure support trial as able (appreciate ICU/ Pulmonology consult assist. Will followup with recommendations) -Continue fentanyl for sedation, wean as tolerated -Patient progressing towards intubation however questions remain as far as appropriate pain management once the patient is extubated. -CT brain shows moderate to severe microvascular ischemic changes Coronary artery disease, chronic. Present on admission. stable. -Pt with prior SC and two stents. Presented with mild chest pain with negative cardiac enzymes and no acute ischemic changes noted on ECG. -Continue home simvastatin and aspirin when able -Continuous cardiac monitoring. Renal cell carcinoma of right kidney, chronic. Presumed stable. -Pt is s/p nephrectomy in October 2016, currently treated with Pazopanib and dexamethasone. -CT abd/pelvis showed a renal cyst as above. -Resume oral medications when able -If pt remains intubated, will likely add IV steroid Diabetes mellitus, type 2, chronic. Present on admission. Presumed stable. -Serum glucose 114 at presentation -Current outpatient therapy is Metformin 500mg PO BID -Hold Metformin -Continue tight glucose control. Per recommendations of general surgery if > 180 use insulin drip. Hypotension, acute. Resolved -Patient no longer requiring pressor support -Vital signs currently stable -TPN started on 03/27 Continue TPN Hypertension, chronic. Present on admission. Stable -Pt currently maintaining blood pressures without the use of pressors -Blood pressures remain stable -Held home antihypertensives: Lisinopril 40mg PO daily, Metoprolol succinate 50mg PO daily Hyperlipidemia, chronic. Present on admission. Presumed stable. -Continue home dose statin (Simvastatin 20mg PO HS) when able GI Prophylaxis: H2 saw VTE Prophylaxis: Sub-Q Heparin (Unfractionated) VTE Mechanical Devices: Intermittant Pneumatic CD Resuscitation Status: CPR: Attempt Resuscitation Attending Statement The patient was seen and examined together with Dr. Suggs on 03/30/2017 and I agree with the history, exam and plan as outlined in the note above. . Mode Suggs DO Mar 30, 2017 20:04 Darrius Mcmahan MD Apr 01, 2017 15:51
[2017-03-30] MEDS: TPN Per Pharmacist XX SCH (20:38)
[2017-03-30] MEDS: Total Parenteral Nutrition 1 BAG IV SCH (20:38)
[2017-03-31] VITALS (11 sets, daily range): BP systolic 92–166; BP diastolic 59–92; PULSE 105–177; RESP 16–34; O2SAT 92–97
[2017-03-31] MEDS: Chlorhexidine 0.12% 15 mL Oral Solution MT SCH ×6 (00:01→20:30)
[2017-03-31] MEDS: Heparin 5,000 Unit/mL Inj SUBQ SCH ×3 (00:01→15:39)
[2017-03-31] MEDS ORDERED: 0.9% Sodium Chloride 250 ML ONE (01:46)
--- NOTE | 2017-03-31 03:49 | ABG ---
DateTimeAnalyzed 03:41:21 -_ pH ____7.461 - 7.350 7.450 pCO2 ___35.8__ -mmHg 35.0 45.0 pO2 ___94.9__ -mmHg 69.0 116 HCO3- ___25.5__ -mmol/L 22.0 26.0 ABE ____1.6__ -mmol/L -2.0 2.0 tHb ____9.7__ -g/dL 12.0 18.0 O2Hb ___97.5__ -% COHb ____1.7__ -% 0.0 1.5 MetHb ____0.0__ -% 0.4 1.5 sO2 ___99.0__ -% FIO2 ___21.0__ -% PEEP ____5.0__ -cmH2O Set_RR 10 -b/min Vt __450.0__ -L Drawn By MD - Date/Time Notified____ 03:49:00 -_ Spontaneous_RR 18 -b/min Oxygen Device 1 VENTILATOR - Notified By MD - Notified Whom RN R.WILLIAM - K+ ____4.4__ -mmol/L 3.5 5.0 tO2 ___13.4__ -Vol% Lion test N/A -
[2017-03-31 03:53] LABS: BASOPHILS % (AUTO) 0.3 % (0-3); EOSINOPHILS % (AUTO) 2.8 % (0-5); MONOCYTES % (AUTO) 7.2 % (4-12); Mean Corpuscular Hemoglobin 30.5 pg (27.0-35.0); Mean Corpuscular Volume 93.4 fL (81-100); NEUTROPHILS % (AUTO) 79.6 % (40-74); Platelet Count 133 bil/L (150-400)
[2017-03-31] MEDS: fentaNYL 2,500 mCg/250 mL 2,500 MCG in IV Premix 1 EACH IV SCH (05:08)
--- NOTE | 2017-03-31 06:14 | NUR ---
Fentanyl gtt/Oxygenation Pt's FELDT score demonstrated increasing levels of pain. Fentanyl gtt increased from 80mcg/hour to 100mcg/hour with good effect. Versed gtt for sedation has been off the entire 12 hour shift. Pt's RASS score remains -2. CLRT maintained on moderate settings. Pt desaturated to the mid 80s when turned to his left side; RT called and deep suctioning performed with good effect. Pt no longer desaturates when turned on his left.
[2017-03-31 06:24] LABS: Magnesium 2.1 mg/dL (1.6-2.6); Phosphorus 2.9 mg/dL (2.5-4.9)
--- NOTE | 2017-03-31 07:44 | PCM.PNSURG ---
Subjective Date of Service: Mar 31, 2017 Visit Information: Reason for Visit Perferated Diverticulitis Surgery/Surgery Date Post-Op Day # Date of Admission: Mar 24, 2017 at 17:07 Hospital Day # Subjective: Patient is seen lying in bed. He appears to be in no acute distress, though he is not communicating. Objective Objective Ostomy site appears to be sloughing some mucosal tissue. No output of stool into ostomy bag. Abdomen is soft and nondistended. Dressings are dry and no surrounding erythema is noted. ARCELIA drain with scant amount of serosanguineous fluid. Endotracheal tube and mechanical ventilation present. Vital Sign- Last 8 Hours Date Time Temp Pulse Resp B/P Pulse Ox O2 Delivery O2 Flow Rate FiO2 03/31/17 03:40 102 116/60 95 30 03/31/17 03:10 37.0 105 16 118/61 95 Mechanical Ventilator 30 03/31/17 00:13 104 131/68 93 30 Intake and Output- Last 8 Hour 03/31/17 Cumulative From/Thru 07:00 03/24/17 14:24 - 03/31/17 05:39 Intake Total 1123 ml 55745 ml Output Total 1270 ml 65689 ml Balance -147 ml 4320 ml Intake Oral 0 ml 0 ml IV Total 1123 ml 62277 ml Tube Feeding 40 ml TPN/PPN 3321 ml Tube Irrigant 80 ml Output Urine Total 1150 ml 43915 ml Stool Total 15 ml Gastric Drainage Total 100 ml 610 ml Drainage Total 20 ml 1080 ml Estimated Blood Loss 120 ml # Bowel Movements 0 0 General: No Acute Distress Heart: Regular Rate/Rhythm Abdomen: Soft, Non-distended Result Diagram: 03/31/17 0340 03/31/17 0340 Diagnostics: Abdominal CT yesterday showed no evidence of acute intra-abdominal pathologic processes. Some intra-abdominal air likely residual from operation. Bowel proximal to ostomy site is not concerning for perforation or necrosis. Assessment & Plan Impression POD#7 s/p exploratory laparotomy with Diallo's and descending end colostomy for perforated diverticulitis and feculent peritonitis. His ostomy is not healthy appearing but we will not plan on intervening surgically at this time. - Continue TPN - Continue nothing by mouth status - ARCELIA and patterson should remain - Continue to monitor ostomy site for viability - Extubate when deemed stable by primary team - Please continue broad spectrum antibiosis - Trend labs daily - Aggressive glycemic control. Please consider starting insulin gtt if BG >180 - If extubated, patient will require a PROFESS[employer] for analgesia - Please do not hesitate to page or call the surgical team with questions or concerns. Problems: VTE Prophylaxis: Sub-Q Heparin (Unfractionated) Resuscitation Status: CPR: Attempt Resuscitation Magen Baker DO Mar 31, 2017 07:44 Resuscitation Status: CPR: Attempt Resuscitation Problems: VTE Prophylaxis: Sub-Q Heparin (Unfractionated) Resuscitation Status: CPR: Attempt Resuscitation Magen Baker DO Mar 31, 2017 07:44
--- NOTE | 2017-03-31 08:13 | DRSVH ---
PROCEDURE: X-RAY CHEST ONE VIEW, PORTABLE ([id number]) INDICATIONS: respiratory distress TECHNIQUE: One view of the chest was acquired. COMPARISON: [facility], CR, XR CHEST 1VW (PORTABLE), 03/30/2017, 5:13. FINDINGS: Surgical changes and devices: Left IJ CVC tip in the left brachiocephalic vein. Stable ET and enteric tubes. Lungs and pleura: Persistent left-sided pleural effusion with dense left lower lobe volume loss. Mini mal right basilar pulmonary opacities. Mediastinum: Mediastinal contours appear normal. Heart size is normal. Bones and chest wall: No suspicious bony lesions. Overlying soft tissues appear unremarkable. IMPRESSION: 1. Persistent left basilar infiltrate with associated pleural effusion. 2. Stable support devices. Dictated by: Bang Chung M.D. on 03/31/2017 at 8:10 Approved by: Bang Chung M.D. on 03/31/2017 at 8:12
[2017-03-31] MEDS: Micafungin Inj 100 MG in 0.9% Sodium Chloride 100 ML IV SCH (08:16)
[2017-03-31] MEDS: Piperacillin-Tazo 3.375 Gm Inj 3.375 GM in Dextrose 5% Minibag Plus 50 ML IV SCH ×4 (08:16→15:39)
[2017-03-31] MEDS: Famotidine Inj 20 MG in IV Premix 1 EACH IV SCH ×2 (08:17→21:23)
--- NOTE | 2017-03-31 09:41 | PCM.PNMED ---
Subjective Date of Service Mar 31, 2017 Subjective ICU Progress Note Patient is a 71 year old male with a history of CAD with 2 stents, COPD, hyperlipidemia, and right-sided renal cell carcinoma (s/p nephrectomy in October 2016) currently treated with Pazopanib presenting to the CCU hypotensive and intubated status post sigmoid colectomy with descending colostomy for perforated diverticulitis. Overnight he continued to have significant abdominal pain, requiring fentanyl gtt to be increased to 100 mcg/hr, but now down to 80. He had an episode of desaturation, which improved with ETT suctioning. Otherwise uneventful. Exam Vital Signs Vital Sign - Last Date Time Temp Pulse Resp B/P Pulse Ox O2 Delivery O2 Flow Rate FiO2 03/31/17 07:23 Ventilator 03/31/17 07:23 36.9 114 16 92/59 94 30 Intake and Output 03/30/17 03/30/17 03/31/17 Cumulative From/Thru 15:00 23:00 07:00 03/24/17 14:24 - 03/31/17 05:39 Intake Total 1467 ml 1123 ml 58102 ml Output Total 1245 ml 1270 ml 76345 ml Balance 222 ml -147 ml 4320 ml Intake Oral 0 ml 0 ml IV Total 655 ml 1123 ml 95672 ml Tube Feeding 40 ml TPN/PPN 812 ml 3321 ml Tube Irrigant 80 ml Output Urine Total 1100 ml 1150 ml 60764 ml Stool Total 15 ml Gastric Drainage Total 100 ml 100 ml 610 ml Drainage Total 45 ml 20 ml 1080 ml Estimated Blood Loss 120 ml # Bowel Movements 0 0 Exam General: Sedated and intubated, no acute distress. Attempts to open eyes and turns head towards verbal stimulus. Head: Normocephalic, atraumatic. External ears normal. Eyes: PERRLA, EOMI. Anicteric sclerae. Mouth: Mouth normal, Mucous membranes moist/pink Neck: Neck supple with full range of motion. Chest& Lungs: Clear to auscultation bilaterally. Cardiovascular: Regular rate/rhythm, Normal S1, Normal S2, No murmurs/rubs/ gallops Abdomen: Tender, hypoactive bowel sounds. Vertical abdominal incision with mild erythema with ARCELIA drain in place with serosanguineous fluid. Ostomy dark, partly retracted, draining dark fluid. Musculoskeletal: Normal range of motion Extremities: Mild 1+ lower extremity pitting edema bilat. Both legs war m. Neurological: Sedated and intubated. Lab and Diagnostics Result Diagram: 03/31/17 0340 03/31/17 0340 Microbiology Blood culture 2/3 bottles positive for Gram + cocci X-Rays, CTs and MRIs (03/24/17) X-RAY CHEST ONE VIEW, PORTABLE IMPRESSION: No acute pulmonary process. Dictated and approved by: Windy Larsen M.D. on 03/24/2017 at 14:05 (03/24/17) CT ANGIO CHEST PULMONARY EMBOLISM IMPRESSION: 1. No acute pulmonary embolus. 2. 4 mm groundglass nodule. No prior comparisons are available. Please see followup guidelines below. 3. Please see detailed description of abdominal findings on the associated CT of the abdomen from the same date. ADDENDUM: Fleischner Society criteria for SOLID lung nodule followup. Nodule size (mm)Low-risk patientHigh-risk [id number] follow-up neededFollow-up at 12 mo; if no change, no further follow-up>[id number] CT at 12 mo; if no change, no further follow-up needed.Initial follow-up CT at 6-12 mo, then 18-24 mo if no change. >6-8Initial follow-up CT at 6-12 mo, then 18-24 mo if no change. Initial follow-up CT at 3-6 mo, then 9-12 mo and 24 mo if no change. > 8Follow-up CT at 3, 9, 24 mo. Or PET and/or biopsy.Same as for low-risk pts. Fleischner Society criteria for SUB-SOLID lung nodule followup. Solitary pure ground-glass nodules5 mm or lessNo followup needed. >5 mm3 mo follow-up CT to confirm persistence. Then annual CT for 3 years. Part-solid nodules3 mo follow-up CT to confirm persistence. If persistent with solid component <5 mm, annual CT for at least 3 years. If solid component is 5 mm or more, biopsy or surgical resection. Consider PET-CT for lesions > 10 mm. Multiple sub-solid nodulesPure ground glass nodules [address] at 2 and 4 years. Pure ground glass nodules >5 mm without dominant lesion. [address] to confirm persistence, then annual followup CT for at least 3 years. Dominant nodule(s) with part-solid or solid component. [address] to confirm persistence. If persistent, consider biopsy or surgical resection, carlito if lesions have >5 mm solid component. Dictated and approved by: Vanessa Torres M.D. on 03/24/2017 at 16:23 (03/24/17) CT ABDOMEN AND PELVIS WITH CONTRAST IMPRESSION: 1. Perforated acute diverticulitis with intra-abdominal abscess as above. Given the location posterior to the sigmoid colon and the bladder, this is likely not amenable to percutaneous drainage. Surgical consultation recommended. 2. Multiple foci of pneumoperitoneum. It is unclear whether there is a solitary perforated region of the sigmoid colon in the region of the abscess or if there may be a second bowel perforation more proximally in the left lower quadrant.These findings were discussed with Dr. Moreno at 4:27 PM on 03/24/17. 3. 1.0 cm diameter cystic lesion within the body of the pancreas. This is new when compared with the prior study dated 09/16/16. Differential considerations include both neoplastic and nonneoplastic cystic lesions. 4. Cholelithiasis. No acute cholecystitis. 5. Severe wedge compression deformity at L1 likely pathologic in nature given the expansile lytic lesion in this vertebral body on the study dated 09/16/16. Dictated and approved by: Vanessa Torres M.D. on 03/24/2017 at 16:24 X-RAY CHEST ONE VIEW, PORTABLE IMPRESSION: New ET tube, enteric tube, and left-sided IJ CVC in expected positions. New left pleural effusion with left basilar atelectasis. Dictated by: Bang Chung M.D. on 03/25/2017 at 7:54 Approved by: Bang Chung M.D. on 03/25/2017 at 7:56 X-RAY CHEST ONE VIEW, PORTABLE IMPRESSION: Decreased lung volumes, with patchy left midlung atelectasis. Dictated by: Darius Molina M.D. on 03/26/2017 at 8:30 Approved by: Darius Molina M.D. on 03/26/2017 at 8:33 . Additional Diagnostics ABG DateTimeAnalyzed 03:52:04 -_ pH ____7.429 - 7.350 7.450 pCO2 ___28.7__ -mmHg 35.0 45.0 pO2 ___92.1__ -mmHg 69.0 116 HCO3- ___19.0__ -mmol/L 22.0 26.0 . ABG DateTimeAnalyzed 05:20:00 -_ pH 7.475 pCO2 33.8 pO2 94.1 HCO3 24.6 Assessment & Plan Patient is a 71 year old gentleman with a history of CAD with 2 stents, COPD, hyperlipidemia, and right-sided renal cell carcinoma (s/p nephrectomy in October 2016) currently treated with Pazopanib presenting to the CCU hypotensive and intubated status post sigmoid colectomy with descending colostomy for perforated diverticulitis. Acute hypoxic respiratory failure - Pt intubated and sedated in the OR, remains on mechanical ventilation in part due to COPD. At presentation he did not appear to be in acute exacerbation. Tolerating pressure support trial well so far today. His mental status is beginning to improve, so will lighten sedation and plan for possible extubation later in the day. Pain control will be an issue post extubation - will transition to Dilaudid WARD ATTENDANT with continuous infusion, and transition to patient- controlled as he continues to wake up - Pressure support trial today. May extubate today. - Wean sedation as tolerated - Dilaudid WARD ATTENDANT - continuous Perforated diverticulitis with intra-abdominal abscess, s/p sigmoid colectomy and descending colostomy - Pt has been experiencing significant abdominal pain postoperatively, requiring increasing amounts of fentanyl. Stoma appears dusky and slightly necrotic; Surgery is aware and does not see need for revision yet. Pt has hx of renal cell carcinoma on pazopanib PO, with recent ostomy placement, and is on TPN. At significant risk for fungal infection. Will continue micafungin. CT abd/ pelvis showed pneumoperitoneum, likely postop, with no acute process intra- abdominally. - Wean fentanyl as tolerated - Continue Zosyn and Micafungin - Fungitell and fungal blood cultures - General Surgery is following. We appreciate their expertise. Hypotension, acute. Improving. - Pt no longer requiring pressor support with norepi. He still drops his BP occasionally to MAPs in 70s. Possibly due to infection. WBC low due to immunotherapy but pt had fevers during hospitalization and procal is 1.13. Possible pneumonia as CT abd/pelvis showed small bilateral pleural effusions with consolidation at bilateral bases. Blood cultures negative to date. Currently on TPN. - Continue TPN - Continue Zosyn and Micafungin - Hold off on further diuresis for now Acute encephalopathy. Improving. - Pt has been responding to verbal stimulus today with lightening sedation. CT brain was negative. - Continue to wean sedation Thrombocytopenia, acute. Stable - Platelets appear stable around 100. Was likely in part due to hemodilution from aggressive hydration and thrombocytopenia in the setting of acute sepsis - Monitor CBC Possible left leg ischemia, unknown acuity. Ruled out. - Noted left leg coolness and poor pulses on 03/29. R leg doppler showed no sonographic evidence of hemodynamically significant stenoses. GI Prophylaxis: H2 saw VTE Prophylaxis: Sub-Q Heparin (Unfractionated) VTE Mechanical Devices: Intermittant Pneumatic CD Resuscitation Status: CPR: Attempt Resuscitation Attending Statement I have seen and examined this patient with the resident physician. Vital signs , labs, imaging have been reviewed. I agree with the assessment and plan above. Please refer to my separately dictated progress note for any modifications to above. Eloise Linder M.D. Pulmonary and Critical Care medicine Pager [phone] Humberto Jama Mar 31, 2017 09:33 Eloise Linder MD Apr 02, 2017 14:48
[2017-03-31] MEDS ORDERED: Sodium Chloride LOK Flush 10 mL Syringe IVFLUSH PRN ×2 (10:25)
[2017-03-31] MEDS ORDERED: MeTOProlol 1 mg/mL 5 mL Inj IVPUSH ONE (10:40)
--- NOTE | 2017-03-31 11:00 | NUR ---
Sedation/SVT Sedation/pain medication fentanyl decreased at shift change to 80mcg/h from 100mcg/h and again at at 0930 to 60mcg/h- sedation decreased for possible extubation today as directed by MD. No eye opening to stimulation and patient did not appeared to be more awake. Patient was placed on ventilator PS trail this initially 10/5 and decreased to 8/5 patient was taking 12-30 breaths per min with oxygen saturation 92-94% on 30% FIO2. Increased frequency of elevated heart rate 150-160s and SVT lasting 15-20 seconds. On episode with sustained increased heart rate. Consulted with MD- metoprolol 5mg IV slow push was given- heart rate decreased to mid-90s with stable BP- continue assessment.
--- NOTE | 2017-03-31 11:17 | ABG ---
DateTimeAnalyzed 11:10:00 -_ pH ____7.440 - 7.350 7.450 pCO2 ___33.1__ -mmHg 35.0 45.0 pO2 105 -mmHg 69.0 116 HCO3- ___22.1__ -mmol/L 22.0 26.0 ABE ___-1.1__ -mmol/L -2.0 2.0 tHb ___10.0__ -g/dL 12.0 18.0 O2Hb ___96.7__ -% COHb ____0.7__ -% 0.0 1.5 MetHb ____0.6__ -% 0.4 1.5 sO2 ___98.0__ -% 25.0 FIO2 ___30.0__ -% Pressure_Support ____5.0__ -cmH2O PEEP ____5.0__ -cmH2O Drawn By as - Date/Time Notified____ 11:17:00 -_ Spontaneous_RR ___26.0__ -b/min Oxygen Device 1 VENTILATOR - Notified By ams - Notified Whom Dr Parimi - B 761 -mmHg tO2 ___13.7__ -Vol% Lion test N/A -
[2017-03-31] MEDS ORDERED: Furosemide 10 mg/mL 2 mL Inj IVPUSH ONE ×2 (11:30→17:00)
[2017-03-31] MEDS ORDERED: Albumin 25% 25 GM in IV Premix 1 EACH IV ONE (11:30)
[2017-03-31] MEDS ORDERED: Lisinopril 40 Tablet PO SCH (11:55)
[2017-03-31] MEDS ORDERED: MeTOProlol XL 50 mg ER24 Tablet PO SCH (11:55)
[2017-03-31] MEDS ORDERED: Acetaminophen IV 1,000 MG in IV Premix 1 EACH IV ONE (12:20)
[2017-03-31] MEDS: MeTOProlol 1 mg/mL 5 mL Inj IVPUSH SCH ×3 (12:25→21:23)
--- NOTE | 2017-03-31 12:32 | PCM.PHAPRO ---
Progress tpn tpn#5 I. volume/hd BP/HR stable, I/O balanced, weight stable. II. Chem lytes WNL and w/o trends Creeping transaminases, noted, bili trending down, alk phos is w/o trend Triglycerides in high 300's III. Glucose <150 IV. Macronutrients/ Advance amino acids and dextrose towards goal Remove triglycerides and follow every other day PARENTERAL NUTRITION ORDERS 31-Mar-17 Standard Hang Time: 2100 Substrates Total kcal: 1566 AMINO ACIDS 145 g DEXTROSE 290 g Total Volume (mL): 1800 LIPIDS g Sterile Water for Injection mL To Infuse Over (hrs): 24 Total Volume 1800 mL At at a rate of (mL/hr): 75 Additives Sodium Chloride 60 mEq "typical" daily requirements Sodium Acetate 60 mEq Sodium 50-120mEq Potassium Chloride 40 mEq Potassium 60-120mEq Potassium Phosphate 40 mEq Phosphate 20-40mEq Calcium Gluconate 8 mEq Magnesium 8-32mEq Magnesium Sulfate 16 mEq Calcium 9-22mEq Acetate* 80-120mEq Chloride* 80-120mEq Regular Insulin 0 units *Depending on acid-base status Famotidine 0 mg Multivitamins 1 std dose Insulin Regimen Trace Elements 1 std dose none Thiamine mg Regular Low Intensity Subcut Folic Acid mg Regular Medium Intensity Subcut Ascorbic Acid mg Regular High Intensity Subcut Regular Insulin Infusion Other: Special Instructions: To be infused via central line only. For delay or inturruption of TPN contact the pharmacist for alternative replacement solution. Signature Date: Humberto Saldivar 2020 Phi Marquez Pharm D Mar 31, 2017 12:32
--- NOTE | 2017-03-31 13:19 | PROG NOTE ---
[address] [address] PROGRESS NOTE PATIENT: JOSAFAT SOLIS : 1945 MR#: [id number] ADMIT: 03/24/2017 JOB ID: [id number] DATE: 03/31/2017 PULMONARY CRITICAL CARE PROGRESS NOTE: The patient is a 71-year-old man with history of renal cell carcinoma status post resection, on oral chemotherapy presenting to the hospital with perforated sigmoid diverticulitis and abscess on March 24, 2017. The patient was seen and evaluated with resident physician, Josafat Jama. Please refer to his separate detailed note for additional information. The following is a brief attending note. INTERVAL HISTORY: He is doing well on a pressure support trial this morning but still remains minimally responsive despite sedation being significantly lightened. He also had episodes of supraventricular tachycardia overnight with rates as high as 170s which resolved with IV metoprolol. REVIEW OF SYSTEMS: Could not be obtained since the patient is intubated. PHYSICAL EXAMINATION: Vital signs reviewed. T max of 38.2, pulse 112, respirations 22, BP 123/65, sats 94% on 30% FiO2 and 5 cm of PEEP. General: Intubated, on fentanyl alone, not really responding to voice or command. Chest clear to auscultation. LABORATORIES: Reviewed. WBC 3.9. Chemistry also reviewed. Procalcitonin is coming down 0.92 from 1.13. Chest x-ray reviewed. He has bilateral left greater than right pleural effusions. ASSESSMENT AND RECOMMENDATIONS: 1. Perforated sigmoid diverticulitis with abscess status post emergent colonic resection with descending colostomy on March 24. 2. Acute hypoxic respiratory failure on mechanical ventilation since March 20. 3. Acute encephalopathy. 4. Septic shock-resolved. 5. Renal cell carcinoma status post nephrectomy on oral chemotherapy with pazopanib which has been held this hospitalization. A 71-year-old man with renal cell carcinoma status post resection, on oral chemotherapy presented with perforated sigmoid diverticulitis in septic shock on March 24. Current most active issue is his encephalopathy. Despite lightening sedation significantly, he is not waking up as I would expect. He had a head CT done yesterday which showed no acute finding that would explain this. He also had an abdominal CT which was quite reassuring and showed no evidence of abscess or active infection. He is currently on fentanyl at 60 which we cut down just now to 30 mcg. He has been off midazolam completely since yesterday. He has been having episodes of supraventricular tachycardia. I spoke to his and to his son, Bang, at length today. After much discussion, they made the decision that if he failed extubation, they would want him re-intubated. The plan would be to give him about 5-7 days on the vent if he is reintubated and then reassess for extubation. If he is not making progress, the plan would be to transition to comfort measures at that point. Hopefully though he does well post extubation and wakes up better once all of the fentanyl has been stopped and continues to improve. We will still hold his chemotherapy medicine for now. With regards to antibiotics, he is getting Zosyn and micafungin. Since his IgE line is still in the brachiocephalic, I would like to have this removed and replaced with a PICC line prior to extubation. I would like to repeat a dose of Lasix with albumin now since his chest x-ray shows effusions and he is hemodynamically stable. We are going to restart his home oral antihypertensive metoprolol but hold off on lisinopril for now. Hopefully the metoprolol will help control his SVT episodes. He is on DVT and GI prophylaxis. TIME: Critical care time is 60 minutes.
--- NOTE | 2017-03-31 13:28 | NUR ---
Elevated temp Temp 38.2 at noon time- consulted with - blood culture X2 one from right radial arterial line second from left IJ were sent to the lab. Patient was given a dose of 1000mg IV Tylenol- continue assessment.
--- NOTE | 2017-03-31 13:29 | DRSVH ---
PROCEDURE: X-RAY PICC LINE PLACEMENT BY NURSE ([id number]) INDICATIONS: iv antibioitics. central line out COMPARISON: None. FINDINGS: PICC was placed by the intravenous therapy team from the right side. Fluoroscopic spot fi lm demonstrates tip of PICC in the expected position of the distal SVC.. IMPRESSION: Tip of PICC lies within the distal SVC. Dictated by: Jimbo Timmons M.D. on 03/31/2017 at 13:27 Approved by: Jimbo Timmons M.D. on 03/31/2017 at 13:28
--- NOTE | 2017-03-31 15:10 | NUR ---
Extubation/NG Patient was extubated at 1415 today. Placed on 3LNC O2 flow with oxygen saturation 94-96% initially. After 30min oxygen saturation dropped to 89-90% ranges. Patient had large amounts of phlegm and required frequent oral suctioning- consulted with MD will consisted NT suctioning PRN if unable to clear secretions otherwise. Patient was also placed on 10L oxy mask O2 flow with oxygen saturation improving to 95-96%. Orogastric tube was removed together with ET removal. MD requested that NG tube be placed 1420- 16franch left nostril NG tube was placed. Placement confirmed by two RNs. NG placed to low continues suction with small amount of green/brown output.
--- NOTE | 2017-03-31 15:14 | PCM.PNMED ---
Subjective Date of Service Mar 31, 2017 Subjective Subjective: Patient is unable to produce pain in his care at this time as he is currently on the ventilator and only minimally responsive due to sedation Events Overnight: No acute events overnight. ROS: Due to the patient being comatose, a review of systems was unable to be obtained. Exam Vital Signs Vital Sign - Last Date Time Temp Pulse Resp B/P Pulse Ox O2 Delivery O2 Flow Rate FiO2 03/31/17 12:11 Ventilator 03/31/17 12:11 38.2 177 22 97/92 94 30 Intake and Output 03/30/17 03/30/17 03/31/17 Cumulative From/Thru 15:00 23:00 07:00 03/24/17 14:24 - 03/31/17 05:39 Intake Total 1467 ml 1123 ml 33290 ml Output Total 1245 ml 1270 ml 06414 ml Balance 222 ml -147 ml 4320 ml Intake Oral 0 ml 0 ml IV Total 655 ml 1123 ml 16290 ml Tube Feeding 40 ml TPN/PPN 812 ml 3321 ml Tube Irrigant 80 ml Output Urine Total 1100 ml 1150 ml 48081 ml Stool Total 15 ml Gastric Drainage Total 100 ml 100 ml 610 ml Drainage Total 45 ml 20 ml 1080 ml Estimated Blood Loss 120 ml # Bowel Movements 0 0 Exam General: Sedated and intubated HEENT: Normocephalic, atraumatic. External ears without defect. Pupils equal, round, and reactive to light and accommodation. Anicteric sclerae, moist conjunctivae. IJ in place Cardiovascular: Regular rate and rhythm with no murmurs, rubs, or gallops appreciated Pulmonary: Patient is currently on the ventilator, breath sounds are coarse due to ventilation status. Abdomen: Bowel tones present. Soft, nondistended, indurated and retracted ostomy maroon colored with underlying pink color, draining maroon fluid. Well- healing incision closed with radha, minor erythema. ARCELIA drain in place. Grimacing significantly with palpation of the abdomen. Extremities: No clubbing, cyanosis, edema, decreased color and warmth of the left leg compared to right. Pulses intact. Skin: Normal temperature, turgor, and texture; no rash, ulcers, or subcutaneous nodules appreciated. Neurological: Unable to assess. Normal tone, and bulk. Psychiatric: Unable to assess IVs and Medications IV Fluids 650 mL normal saline delivered IV medications Medications Reviewed: Medications were reviewed in detail Medications High risk medications include: Fentanyl Lab and Diagnostics Result Diagram: 03/31/17 0340 03/31/17 0340 Microbiology Blood culture 2/3 bottles positive for Gram + cocci X-Rays, CTs and MRIs (03/24/17) X-RAY CHEST ONE VIEW, PORTABLE IMPRESSION: No acute pulmonary process. Dictated and approved by: Windy Larsen M.D. on 03/24/2017 at 14:05 (03/24/17) CT ANGIO CHEST PULMONARY EMBOLISM IMPRESSION: 1. No acute pulmonary embolus. 2. 4 mm groundglass nodule. No prior comparisons are available. Please see followup guidelines below. 3. Please see detailed description of abdominal findings on the associated CT of the abdomen from the same date. ADDENDUM: Fleischner Society criteria for SOLID lung nodule followup. Nodule size (mm)Low-risk patientHigh-risk [id number] follow-up neededFollow-up at 12 mo; if no change, no further follow-up>[id number] CT at 12 mo; if no change, no further follow-up needed.Initial follow-up CT at 6-12 mo, then 18-24 mo if no change. >6-8Initial follow-up CT at 6-12 mo, then 18-24 mo if no change. Initial follow-up CT at 3-6 mo, then 9-12 mo and 24 mo if no change. > 8Follow-up CT at 3, 9, 24 mo. Or PET and/or biopsy.Same as for low-risk pts. Fleischner Society criteria for SUB-SOLID lung nodule followup. Solitary pure ground-glass nodules5 mm or lessNo followup needed. >5 mm3 mo follow-up CT to confirm persistence. Then annual CT for 3 years. Part-solid nodules3 mo follow-up CT to confirm persistence. If persistent with solid component <5 mm, annual CT for at least 3 years. If solid component is 5 mm or more, biopsy or surgical resection. Consider PET-CT for lesions > 10 mm. Multiple sub-solid nodulesPure ground glass nodules [address] at 2 and 4 years. Pure ground glass nodules >5 mm without dominant lesion. [address] to confirm persistence, then annual followup CT for at least 3 years. Dominant nodule(s) with part-solid or solid component. [address] to confirm persistence. If persistent, consider biopsy or surgical resection, carlito if lesions have >5 mm solid component. Dictated and approved by: Vanessa Torres M.D. on 03/24/2017 at 16:23 (03/24/17) CT ABDOMEN AND PELVIS WITH CONTRAST IMPRESSION: 1. Perforated acute diverticulitis with intra-abdominal abscess as above. Given the location posterior to the sigmoid colon and the bladder, this is likely not amenable to percutaneous drainage. Surgical consultation recommended. 2. Multiple foci of pneumoperitoneum. It is unclear whether there is a solitary perforated region of the sigmoid colon in the region of the abscess or if there may be a second bowel perforation more proximally in the left lower quadrant.These findings were discussed with Dr. Moreno at 4:27 PM on 03/24/17. 3. 1.0 cm diameter cystic lesion within the body of the pancreas. This is new when compared with the prior study dated 09/16/16. Differential considerations include both neoplastic and nonneoplastic cystic lesions. 4. Cholelithiasis. No acute cholecystitis. 5. Severe wedge compression deformity at L1 likely pathologic in nature given the expansile lytic lesion in this vertebral body on the study dated 09/16/16. Dictated and approved by: Vanessa Torres M.D. on 03/24/2017 at 16:24 X-RAY CHEST ONE VIEW, PORTABLE IMPRESSION: New ET tube, enteric tube, and left-sided IJ CVC in expected positions. New left pleural effusion with left basilar atelectasis. Dictated by: Bang Chung M.D. on 03/25/2017 at 7:54 Approved by: Bang Chung M.D. on 03/25/2017 at 7:56 X-RAY CHEST ONE VIEW, PORTABLE IMPRESSION: Decreased lung volumes, with patchy left midlung atelectasis. Dictated by: Darius Molina M.D. on 03/26/2017 at 8:30 Approved by: Darius Molina M.D. on 03/26/2017 at 8:33 . Additional Diagnostics ABG DateTimeAnalyzed 03:52:04 -_ pH ____7.429 - 7.350 7.450 pCO2 ___28.7__ -mmHg 35.0 45.0 pO2 ___92.1__ -mmHg 69.0 116 HCO3- ___19.0__ -mmol/L 22.0 26.0 . ABG DateTimeAnalyzed 05:20:00 -_ pH 7.475 pCO2 33.8 pO2 94.1 HCO3 24.6 Assessment & Plan 71 year old gentleman with a history of CAD with 2 stents, COPD, hyperlipidemia , and right-sided renal cell carcinoma (s/p nephrectomy in October 2016) currently treated with Pazopanib presenting to the CCU hypotensive and intubated status post sigmoid colectomy with descending colostomy for perforated diverticulitis. Perforated diverticulitis with intra-abdominal abscess. S/P sigmoid colectomy and descending colostomy, active -Patient continues with increased pain in the abdomen noted by grimacing with palpation. Requiring fentanyl. -Ostomy with induration and some retraction, improving. Surgery continues to follow and does not see a need for revision at this time. -[place] and ARCELIA drain should remain for now. -Continue IV Zosyn and Micafungin -CT abdomen shows bilateral pleural effusions with atelectasis, no bowel obstruction, diverticulosis, cystic pancreatic mass (decreased), and pneumoperitoneum (likely postoperative) Acute Hypoxic Respiratory Failure due to surgery and COPD, chronic. Present on admission. stable. -Pt intubated and sedated in the CCU. At presentation he did not appear to be in acute COPD exacerbation. -Continue ventilator support as needed, pressure support trials have shown possible readiness for extubation, Patient to be extubated 03/31 Coronary artery disease, chronic. Present on admission. stable. -Pt with prior [place] and two stents. Presented with mild chest pain with negative cardiac enzymes and no acute ischemic changes noted on ECG. -Continue home simvastatin and aspirin when able -Continuous cardiac monitoring. Renal cell carcinoma of right kidney, chronic. Presumed stable. -Pt is s/p nephrectomy in October 2016, currently treated with Pazopanib and dexamethasone. -CT abd/pelvis showed a renal cyst as above. -Resume oral medications when able Diabetes mellitus, type 2, chronic. Present on admission. Presumed stable. -Serum glucose 114 at presentation -Current outpatient therapy is Metformin 500mg PO BID -Hold Metformin -Continue tight glucose control. Per recommendations of general surgery if > 180 use insulin drip. Hypotension, acute. Resolved -Vital signs currently stable -TPN started on 03/27 Continue TPN Hypertension, chronic. Present on admission. Stable -Blood pressures remain stable -Held home antihypertensives: Lisinopril 40mg PO daily, Metoprolol succinate 50mg PO daily Hyperlipidemia, chronic. Present on admission. Presumed stable. -Continue home dose statin (Simvastatin 20mg PO HS) when able Disposition: Prognosis guarded at this time. Pending successful extubation patient will likely require 5-7 more days of inpatient monitoring and treatment. Of note: Dr. Linder discussed with the family today their wishes for reintubation if needed. The family stated that they would like him to be reintubated if it came to that and would consider removal of care 5-7 days after that time if no significant progress was noted. GI Prophylaxis: H2 saw VTE Prophylaxis: Sub-Q Heparin (Unfractionated) VTE Mechanical Devices: Intermittant Pneumatic CD Resuscitation Status: CPR: Attempt Resuscitation Attending Statement The patient was seen and examined together with Dr. Suggs on 03/31/2017 and I agree with the history, exam and plan as outlined in the note above. . Mode Suggs DO Mar 31, 2017 15:13 Darrius Mcmahan MD Apr 01, 2017 17:36
[2017-03-31] MEDS: Dextrose 5% Lactated Ringer's 1,000 ML IV SCH (15:40)
[2017-03-31] MEDS ORDERED: Nitroglycerin 2% 1 Gm Ointment TOPICAL SCH (17:10)
--- NOTE | 2017-03-31 17:16 | DRSVH ---
PROCEDURE: X-RAY CHEST ONE VIEW, PORTABLE ([id number]) INDICATIONS: 71 year-old male with respiratory distress. TECHNIQUE: One view of the chest was acquired. COMPARISON: [facility], CR, XR CHEST 1VW (PORTABLE), 03/31/2017, 4:55. [facility], CR, XR CHEST 1VW (PORTABLE), 03/30/2017, 5:13. [facility], CR, XR CHEST 1VW (EMILY BLE), 03/29/2017, 9:58. FINDINGS: Surgical changes and devices: Patient has been extubated. Esophagogastric tube remains present, with tip in the gastric fundus. Right PICC is now present, with tip in the lower superior vena cava. Dominique cystectomy clips are present. Lungs and pleura: No pleural effusions or pneumothorax. Lungs are clear, except for decreased patch y retrocardiac opacity. Mediastinum: Mediastinal contours appear normal. Heart size is normal. Bones and chest wall: No suspicious bony lesions. Overlying soft tissues appear unremarkable. IMPRESSION: Status post interval extubation, with decreased retrocardiac atelectasis, pneumonia, or a spiration. Dictated by: Darius Molina M.D. on 03/31/2017 at 17:12 Approved by: Darius Molina M.D. on 03/31/2017 at 17:14
--- NOTE | 2017-03-31 17:25 | ABG ---
DateTimeAnalyzed 17:13:51 -_ pH ____7.472 - 7.350 7.450 pCO2 ___33.7__ -mmHg 35.0 45.0 pO2 261 -mmHg 69.0 116 HCO3- ___24.6__ -mmol/L 22.0 26.0 ABE ____1.0__ -mmol/L -2.0 2.0 tHb ___10.6__ -g/dL 12.0 18.0 O2Hb ___99.7__ -% COHb ____1.5__ -% 0.0 1.5 MetHb ____0.0__ -% 0.4 1.5 FIO2 __100.0__ -% CPAP ___16.0__ -cmH2O PEEP ____7.0__ -cmH2O Drawn By as - Date/Time Notified____ 17:25:00 -_ Spontaneous_RR 43 -b/min Oxygen Device 1 ____BIPAP - Notified By ams - Notified Whom dr parimi - K+ ____4.5__ -mmol/L 3.5 5.0 Lion test N/A -
--- NOTE | 2017-03-31 19:58 | NUR ---
Oxygen saturation continued to decrease to 84-85% ranges. Patient required frequent NT suctioning- MD aware to clear secretions. Patient remained nonverbal to stimulation, no eye opening. Fentanyl drip was discontinue at 1300 today and patient did not received any additional narcotics or sedatives. Had not been Narcan 0.2 mg IV push X1- patient responded with elevated heart rate to 140-150 ranges and elevated BP to 180s /100s. No change or improvement in mental status/response- MD was present in the room and aware. Patient was placed on BIPAP at the time- please see RT documentation for BIPAP management. Patient responded to BIPAP settings at the time at 100% FIO2 by increased ox oxygenation to 95-97%. Heart rate gradually decreased to 120-130 ranges and SBP decreased to 140-150 within 15min post narcan administration- continue assessment.
[2017-03-31] MEDS: TPN Per Pharmacist XX SCH (21:23)
[2017-03-31] MEDS: Total Parenteral Nutrition 1 BAG IV SCH (21:23)
[2017-04-01] VITALS (10 sets, daily range): BP systolic 122–163; BP diastolic 64–87; PULSE 112–134; RESP 19–36; O2SAT 94–96
[2017-04-01] MEDS: Chlorhexidine 0.12% 15 mL Oral Solution MT SCH ×6 (00:30→20:30)
[2017-04-01] MEDS: Piperacillin-Tazo 3.375 Gm Inj 3.375 GM in Dextrose 5% Minibag Plus 50 ML IV SCH ×3 (00:36→16:44)
[2017-04-01] MEDS: Heparin 5,000 Unit/mL Inj SUBQ SCH ×3 (00:36→16:43)
[2017-04-01] MEDS: MeTOProlol 1 mg/mL 5 mL Inj IVPUSH SCH ×6 (00:36→19:44)
[2017-04-01] MEDS ORDERED: Furosemide 10 mg/mL 2 mL Inj IVPUSH ONE ×2 (01:45→12:00)
[2017-04-01] MEDS ORDERED: MeTOProlol 1 mg/mL 5 mL Inj IVPUSH ONE (01:45)
[2017-04-01 04:40] LABS: BASOPHILS % (AUTO) 0.2 % (0-3); EOSINOPHILS % (AUTO) 1.8 % (0-5); MONOCYTES % (AUTO) 5.9 % (4-12); Mean Corpuscular Hemoglobin 30.5 pg (27.0-35.0); Mean Corpuscular Volume 92.5 fL (81-100); NEUTROPHILS % (AUTO) 83.7 % (40-74); Platelet Count 199 bil/L (150-400)
--- NOTE | 2017-04-01 05:03 | ABG ---
DateTimeAnalyzed 04:53:18 -_ pH ____7.523 - 7.350 7.450 pCO2 ___31.4__ -mmHg 35.0 45.0 pO2 234 -mmHg 69.0 116 HCO3- ___25.8__ -mmol/L 22.0 26.0 ABE ____2.8__ -mmol/L -2.0 2.0 tHb ___10.3__ -g/dL 12.0 18.0 O2Hb ___99.3__ -% COHb ____1.4__ -% 0.0 1.5 MetHb ____0.2__ -% 0.4 1.5 FIO2 ___21.0__ -% CPAP ___16.0__ -cmH2O PEEP ____7.0__ -cmH2O Vt __597.0__ -L Drawn By MD - Date/Time Notified____ 05:01:00 -_ Spontaneous_RR 32 -b/min Oxygen Device 1 ____BIPAP - Notified By MD - Notified Whom RN J.HERLICKSON - K+ ____3.9__ -mmol/L 3.5 5.0 Lion test N/A -
[2017-04-01 05:29] LABS: Phosphorus 2.9 mg/dL (2.5-4.9)
--- NOTE | 2017-04-01 06:08 | NUR ---
Respiratory, mentation, Vs as noted. Continues on Bipap with sats this am on 40% fio2 mid 90s. Desaturated once 0100 to 89%. Deep suctioned for large amounts thin pink tinged secretions with improvement but with continued large secretions. Blood pressure up from 150s to 170s. Hr 140. Dr Gibson notified. Lasix 20mg iv given. Additional Lopressor 2.5mg iv given with improvement in secretions and blood pressure decreased to 140s systolic. Lung sounds clear with occasional rhonchi. Continues minimally responsive to noxious stimulation. Does not follow commands or interact purposefully. Does cough with deep suctioning.
[2017-04-01] MEDS: Micafungin Inj 100 MG in 0.9% Sodium Chloride 100 ML IV SCH (08:41)
[2017-04-01] MEDS: Famotidine Inj 20 MG in IV Premix 1 EACH IV SCH ×2 (08:41→19:44)
--- NOTE | 2017-04-01 08:52 | PCM.PHAPRO ---
Progress Date of Service: Apr 01, 2017 tpn A/ Stable on current admixture. P/ Reevaluate lipids with triglyceride level tomorrow. Added Famotidine into the TPN and set the piggyback to D/C tonight. PARENTERAL NUTRITION ORDERS 6 01-Apr-17 Standard Hang Time: 2100 Substrates Total kcal: 1566 AMINO ACIDS 145 g DEXTROSE 290 g Total Volume (mL): 2400 LIPIDS g Sterile Water for Injection mL To Infuse Over (hrs): 24 Total Volume 2400 mL At at a rate of (mL/hr): 100 Additives Sodium Chloride 80 mEq "typical" daily requirements Sodium Acetate 60 mEq Sodium 50-120mEq Potassium Chloride 40 mEq Potassium 60-120mEq Potassium Phosphate 40 mEq Phosphate 20-40mEq Calcium Gluconate 9.3 mEq Magnesium 8-32mEq Magnesium Sulfate 16 mEq Calcium 9-22mEq Acetate* 80-120mEq Chloride* 80-120mEq Regular Insulin 0 units *Depending on acid-base status Famotidine 40 mg Multivitamins 1 std dose Insulin Regimen Trace Elements 1 std dose none Thiamine mg Regular Low Intensity Subcut Folic Acid mg Regular Medium Intensity Subcut Ascorbic Acid mg Regular High Intensity Subcut Regular Insulin Infusion Other: Special Instructions: To be infused via central line only. For delay or inturruption of TPN contact the pharmacist for alternative replacement solution. Darrius Adams Apr 01, 2017 08:52
--- NOTE | 2017-04-01 10:18 | DRSVH ---
PROCEDURE: X-RAY CHEST ONE VIEW, PORTABLE ([id number]) INDICATIONS: hypoxia TECHNIQUE: One view of the chest was acquired. COMPARISON: [facility], CR, XR CHEST 1VW (PORTABLE), 03/31/2017, 16:46. [facility], CR, XR CHEST 1VW (PORTABLE), 03/31/2017, 4:55. FINDINGS: Surgical changes and devices: What appears to be a nasogastric tube extends in normal position, but c oils in the gastric cardia.. Lungs and pleura: No pleural effusions or pneumothorax. Lungs are clear. Mediastinum: Mediastinal contours appear normal. Heart size is normal. Bones and chest wall: No suspicious bony lesions. Overlying soft tissues appear unremarkable. IMPRESSION: Mildly reduced inspiratory volume, slight atelectasis at each lung base greater on the le ft than the right. A definite source of new hypoxia is not found. Nasogastric tube coils in the gas tric cardiac this time. Dictated by: Jimbo Timmons M.D. on 04/01/2017 at 10:16 Approved by: Jimbo Timmons M.D. on 04/01/2017 at 10:16
--- NOTE | 2017-04-01 11:57 | NUR ---
NUTRITION FOLLOW UP: ASSESS: 71 YO M admitted to CCU with perforated diverticulitis, pneumoperitoneum with peritonitis, s/p exploratory laparotomy with sigmoid/descending colon resection, Diallo's and end-descending colostomy. Pt has been extubated; continues on Bipap. RT deep suctioned large amounts thin pink tinged secretions with improvement but with continued large secretions. Lipids removed from TPN yesterday due to elevated triglycerides, LFT's. Neurological status concerning, as he remains significantly encephalopathic, despite minimal sedation and pain medication. Recent head CT showed no acute finding that would explain his encephalopathy. He also had an abdominal CT which was quite reassuring and showed no evidence of abscess or active infection. PMHx: Renal cell cancer with current chemotherapy, immunosuppression, R. nephrectomy, CAD, COPD, HTN, dyslipidemia, type 2 diabetes, hiatal hernia, GI bleed. DIET: NPO. TPN: Dex 290 g, AA 145 g, no lipids, providing 1566 kcal, 145 g protein, sufficient to meet approx. 81% kcal / 100% protein needs. LABS: Reviewed. Cr 0.71, Glu 104, Ca 8.1, Total Bili 3.2, AST 90, ALT 77, Alb 2. MEDICATIONS: Reviewed. Lopressor, lasix, albumin. GI: Minimal stool via colostomy. SKIN: Per Automation Test Developer, there is no skin breakdown or erythemic areas noted. Ostomy remains dark and retracted with minimal output. Surgery following as well. ANTHROPOMETRICS: Current Wt: 87.5 kg, BMI: 25.0 kg/m2. IBW: 83.64 kg (105% IBW) ESTIMATED NEEDS (GI SURGERY, POSS. WOUNDS): Calories: 0026-0075 kcal (22-25 kcal/kg BW) Protein: 132-159 g protein (1.5-1.8 g/kg BW) Fluid: Approx. 2643 mL (30 mL/kg BW) NUTRITION DIAGNOSIS: 1) Inadequate oral intake related to altered GI function, as evidenced by colectomy/colostomy, NPO status - PERSISTS. INTERVENTION: 1) Continue current TPN without lipids to determine cause of lab abnormalities. MONITOR/EVALUATE: NPO status, labs, TPN tolerance, GI/nutrition status. Follow per high nutrition risk guidelines.
--- NOTE | 2017-04-01 11:59 | PROG NOTE ---
[address] [address] PROGRESS NOTE PATIENT: JOSAFAT SOLIS : 1945 MR#: [id number] ADMIT: 03/24/2017 JOB ID: [id number] DATE: 04/01/2017 PULMONARY CRITICAL CARE PROGRESS NOTE: The patient is a 71-year-old man with renal cell carcinoma status post resection, on oral chemotherapy presenting to the hospital on March 24 with perforated sigmoid diverticulitis and diverticular abscess. Hospital course was complicated by respiratory failure, septic shock and encephalopathy. INTERVAL HISTORY: He was extubated yesterday evening and has been tenuous since that time. Despite turning off all sedation 24 hours prior and all of his fentanyl drips at the time of extubation, he still remains quite significantly encephalopathic and unresponsive. He has been on BiPAP overnight and his FiO2 is improved from 100% down to 40% today. Respiratory rate is somewhat better now also in the 30s, instead of 40s yesterday. However, he still seems very tenuous. REVIEW OF SYSTEMS: Unable to obtain since the patient is unresponsive. PHYSICAL EXAMINATION: Vital signs reviewed. Temperature 37.4 currently and 38.2 yesterday at noon. Pulse 126, respirations 30, BP 131/33, sats 95% on 40% FiO2. General: Minimally responsive on BiPAP, moans and tries to move arms or legs sometimes but not really following commands or tracking. Chest: Coarse bilateral breath sounds, most likely upper airway. LABORATORIES: Reviewed. WBC 6.5, hemoglobin 10.2 platelets 199. Chemistry reviewed. Procalcitonin is up to 1.48 from 0.9 yesterday. Intake and output: He diuresed 2 L negative yesterday. Arterial blood gas shows pH 7.52, pCO2 of 31, pO2 of 234, bicarbonate of 25.8. ASSESSMENT AND RECOMMENDATIONS: 1. Acute hypoxic respiratory failure-intubated March 24, extubated March 31, currently on 40% oxygen on BiPAP. 2. Acute encephalopathy. 3. Perforated sigmoid diverticulitis with abscess status post emergent colonic resection with descending colostomy March 24. 4. Renal cell carcinoma status post nephrectomy, on oral chemotherapy with pazopanib. This 71-year-old man with complex hospital course as described above was extubated yesterday afternoon. The primary problem we have been dealing with it is his encephalopathy which persists despite workup for other causes and stopping all of his sedatives. He had a head CT, and an abdomen and pelvis CT looking for potential abnormalities that would make him more encephalopathic and these were unrevealing. He was extubated yesterday evening based on discussion with his family. Both his and his son indicated that they would want him reintubated if he failed but with a plan for short period of reassessment for about 5-7 days. If he does not improve 5-7 days after re-intubation, the plan would be to transition to comfort measures. I am trying hard to stave off re-intubation at this point. From a respiratory standpoint, he was on minimal vent settings, doing well on pressure support prior to extubation. He had been diuresed very well and had no signs of pulmonary infection. It seemed like encephalopathy related to sedation was the most likely cause of his deteriorating status yesterday evening, and for this reason, I would like to give him more time on the BiPAP to allow all of these drugs to leave his system. I did tell the nursing staff and hospitalist team that if he worsens today with increasing hypoxia, increasing respiratory distress or develops hypercarbia that we should reintubate him. At this point, he is on Zosyn and micafungin. I am not sure what to make of the slightly elevated procalcitonin today. He did get diuresed with Lasix yesterday which seemed to help a little bit. I think we can repeat this dose of Lasix with albumin today since his blood pressure is good. We stopped the initial plan for Dilaudid continuous infusion since he does not appear to need it. He does have Dilaudid available to push if he is having signs of overt pain but I would really like to avoid benzos and narcotics today if at all possible. He is also having issues with being intermittent tachycardia. He does take metoprolol p.o. at home which is on hold for now and he is getting IV metoprolol instead. He is on appropriate DVT and GI prophylaxis. He is a FULL CODE at this point. CRITICAL CARE TIME: 60 minutes.
[2017-04-01] MEDS: Dextrose 5% Lactated Ringer's 1,000 ML IV SCH (12:43)
--- NOTE | 2017-04-01 13:26 | PROG NOTE ---
[address] [address] PROGRESS NOTE PATIENT: JOSAFAT SOLIS : 1945 MR#: [id number] ADMIT: 03/24/2017 JOB ID: [id number] DATE: 04/01/2017 SUBJECTIVE: He remained extubated. He was afebrile but late this morning he had a temperature of 38.4. He remains tachycardic with a heart rate of between 100 and 135. Blood pressure remains within normal limits. He still has not woken up since extubation. On physical examination, he is unresponsive to verbal commands and painful stimuli. His stoma is in good shape. His incision is healing without signs of infection. He does have an erythematous rash on the left side that has the appearance of contact dermatitis and/or fungus. LABORATORIES: His white count is 6.5 with 84% neutrophils. His hematocrit is 30.9. Chemistries are relatively normal though his blood glucose is 204. Total bilirubin is up to 3.2, and his LFTs are otherwise relatively unremarkable. His procalcitonin took a bump up to 1.48. His albumin is 2.7. IMPRESSION AND PLAN: Recovering from his operation that was now eight days ago. His decreased mental status is of unclear etiology. He continues on IV antibacterials and antifungals. No new recommendations.
--- NOTE | 2017-04-01 18:08 | NUR ---
Neuro/Hemodynamics/Resporatory/GI- Patient continues to be unresponsive. Does no open eyes, follow commands, move, or speak. Not responsive to sternal rub or loud prompting. Does moan with turns however. MDs aware. BP, 120s-140s/70s-80s via arterial line. HR, 120s mostly. MDs aware. Giving 2.5 IV Lopressor q 4. On Bipap, 40% 13/5. Sats at 90-96%. Lungs decreased in bases. RR, 20s-30s. Colostomy now putting out a small amount of brown. NGT with 600 mls green fluid out. [place] put out 1050 mls. Abdominal incision well approximated. ARCELIA with 3 mls out this shift. Continuing to monitor neuro frequently. Continuing with POC.
--- NOTE | 2017-04-01 20:54 | PCM.PNMED ---
Subjective Date of Service Apr 01, 2017 Subjective Subjective: Due to patient being comatose he is unable to participate in his care at this point. Events Overnight: No acute events overnight. ROS: Due to the patient being comatose, a review of systems was unable to be obtained. Exam Vital Signs Vital Sign - Last Date Time Temp Pulse Resp B/P Pulse Ox O2 Delivery O2 Flow Rate FiO2 04/01/17 16:24 124 26 132/69 96 40 04/01/17 16:00 37.9 BiPAP 03/31/17 15:21 15.00 Intake and Output 03/31/17 03/31/17 04/01/17 Cumulative From/Thru 15:00 23:00 07:00 03/24/17 14:24 - 04/01/17 06:26 Intake Total 1636 ml 1493 ml 17375 ml Output Total 1480 ml 3635 ml 61999 ml Balance 156 ml -2142 ml 2334 ml Intake Oral 0 ml IV Total 1596 ml 1493 ml 20487 ml Tube Feeding 40 ml TPN/PPN 3321 ml Tube Irrigant 40 ml 120 ml Output Urine Total 1250 ml 3115 ml 10415 ml Stool Total 15 ml Gastric Drainage Total 200 ml 500 ml 1310 ml Drainage Total 30 ml 20 ml 1130 ml Estimated Blood Loss 120 ml # Bowel Movements 0 Exam General: Extubated, breathing under own power, on oxygen rebreather mask 15 L, unresponsive even to vigorous verbal stimulation HEENT: Normocephalic, atraumatic. External ears without defect. Pupils equal, round, and reactive to light and accommodation. Anicteric sclerae, moist conjunctivae. IJ in place Cardiovascular: Regular rate and rhythm with no murmurs, rubs, or gallops appreciated Pulmonary: Patient is currently on breathing under his own power, breath sounds diminished, minor wheezing and rhonchi, no rales Abdomen: Bowel tones absent. Soft, slightly distended, tender, indurated and retracted ostomy maroon colored with underlying pink color, small amount of brown feces. Well-healing incision closed with radha, minor erythema. ARCELIA drain in place. Grimacing with palpation of the abdomen. Extremities: No clubbing, cyanosis, edema, decreased color and warmth of the left leg compared to right. Pulses intact. Skin: Normal temperature, turgor, and texture; no rash, ulcers, or subcutaneous nodules appreciated. Neurological: Unable to assess. Normal tone Psychiatric: Unable to assess IVs and Medications IV Fluids 1200 mL normal saline delivered IV medications. Medications Reviewed: Medications were reviewed in detail Lab and Diagnostics Result Diagram: 04/01/17 04304/01/17 043 Microbiology Blood culture 2/3 bottles positive for Gram + cocci X-Rays, CTs and MRIs (03/24/17) X-RAY CHEST ONE VIEW, PORTABLE IMPRESSION: No acute pulmonary process. Dictated and approved by: Windy Larsen M.D. on 03/24/2017 at 14:05 (03/24/17) CT ANGIO CHEST PULMONARY EMBOLISM IMPRESSION: 1. No acute pulmonary embolus. 2. 4 mm groundglass nodule. No prior comparisons are available. Please see followup guidelines below. 3. Please see detailed description of abdominal findings on the associated CT of the abdomen from the same date. ADDENDUM: Fleischner Society criteria for SOLID lung nodule followup. Nodule size (mm)Low-risk patientHigh-risk [id number] follow-up neededFollow-up at 12 mo; if no change, no further follow-up>[id number] CT at 12 mo; if no change, no further follow-up needed.Initial follow-up CT at 6-12 mo, then 18-24 mo if no change. >6-8Initial follow-up CT at 6-12 mo, then 18-24 mo if no change. Initial follow-up CT at 3-6 mo, then 9-12 mo and 24 mo if no change. > 8Follow-up CT at 3, 9, 24 mo. Or PET and/or biopsy.Same as for low-risk pts. Fleischner Society criteria for SUB-SOLID lung nodule followup. Solitary pure ground-glass nodules5 mm or lessNo followup needed. >5 mm3 mo follow-up CT to confirm persistence. Then annual CT for 3 years. Part-solid nodules3 mo follow-up CT to confirm persistence. If persistent with solid component <5 mm, annual CT for at least 3 years. If solid component is 5 mm or more, biopsy or surgical resection. Consider PET-CT for lesions > 10 mm. Multiple sub-solid nodulesPure ground glass nodules [address] at 2 and 4 years. Pure ground glass nodules >5 mm without dominant lesion. [address] to confirm persistence, then annual followup CT for at least 3 years. Dominant nodule(s) with part-solid or solid component. [address] to confirm persistence. If persistent, consider biopsy or surgical resection, carlito if lesions have >5 mm solid component. Dictated and approved by: Vanessa Torres M.D. on 03/24/2017 at 16:23 (03/24/17) CT ABDOMEN AND PELVIS WITH CONTRAST IMPRESSION: 1. Perforated acute diverticulitis with intra-abdominal abscess as above. Given the location posterior to the sigmoid colon and the bladder, this is likely not amenable to percutaneous drainage. Surgical consultation recommended. 2. Multiple foci of pneumoperitoneum. It is unclear whether there is a solitary perforated region of the sigmoid colon in the region of the abscess or if there may be a second bowel perforation more proximally in the left lower quadrant.These findings were discussed with Dr. Moreno at 4:27 PM on 03/24/17. 3. 1.0 cm diameter cystic lesion within the body of the pancreas. This is new when compared with the prior study dated 09/16/16. Differential considerations include both neoplastic and nonneoplastic cystic lesions. 4. Cholelithiasis. No acute cholecystitis. 5. Severe wedge compression deformity at L1 likely pathologic in nature given the expansile lytic lesion in this vertebral body on the study dated 09/16/16. Dictated and approved by: Vanessa Torres M.D. on 03/24/2017 at 16:24 X-RAY CHEST ONE VIEW, PORTABLE IMPRESSION: New ET tube, enteric tube, and left-sided IJ CVC in expected positions. New left pleural effusion with left basilar atelectasis. Dictated by: Bang Chung M.D. on 03/25/2017 at 7:54 Approved by: Bang Chung M.D. on 03/25/2017 at 7:56 X-RAY CHEST ONE VIEW, PORTABLE IMPRESSION: Decreased lung volumes, with patchy left midlung atelectasis. Dictated by: Darius Molina M.D. on 03/26/2017 at 8:30 Approved by: Darius Molina M.D. on 03/26/2017 at 8:33 . Additional Diagnostics ABG DateTimeAnalyzed 03:52:04 -_ pH ____7.429 - 7.350 7.450 pCO2 ___28.7__ -mmHg 35.0 45.0 pO2 ___92.1__ -mmHg 69.0 116 HCO3- ___19.0__ -mmol/L 22.0 26.0 . ABG DateTimeAnalyzed 05:20:00 -_ pH 7.475 pCO2 33.8 pO2 94.1 HCO3 24.6 Assessment & Plan 71 year old gentleman with a history of CAD with 2 stents, COPD, hyperlipidemia , and right-sided renal cell carcinoma (s/p nephrectomy in October 2016) currently treated with Pazopanib presenting to the CCU hypotensive and intubated status post sigmoid colectomy with descending colostomy for perforated diverticulitis. Perforated diverticulitis with intra-abdominal abscess. S/P sigmoid colectomy and descending colostomy, active -Patient continues with increased pain in the abdomen noted by grimacing with palpation. -No longer on sedation -Ostomy with induration and some retraction, improving. Surgery continues to follow and does not see a need for revision at this time. -[place] and ARCELIA drain should remain for now. -Continue IV Zosyn and Micafungin -CT abdomen shows bilateral pleural effusions with atelectasis, no bowel obstruction, diverticulosis, cystic pancreatic mass (decreased), and pneumoperitoneum (likely postoperative) Acute Hypoxic Respiratory Failure due to surgery and COPD, chronic. Present on admission. stable. -Pt intubated and sedated in the CCU. Extubated on 03/31 -Patient requiring frequent suctioning to keep the airway clear -Patient placed on BiPAP for respiratory support -Family is aware that there is likelihood that he will require reintubation, which they do desire if it comes to that. Coronary artery disease, chronic. Present on admission. stable. -Pt with prior CT and two stents. Presented with mild chest pain with negative cardiac enzymes and no acute ischemic changes noted on ECG. -Continue home simvastatin and aspirin when able -Continuous cardiac monitoring. Renal cell carcinoma of right kidney, chronic. Presumed stable. -Pt is s/p nephrectomy in October 2016, currently treated with Pazopanib and dexamethasone. -CT abd/pelvis showed a renal cyst as above. -Resume oral medications when able Diabetes mellitus, type 2, chronic. Present on admission. Presumed stable. -Serum glucose 114 at presentation -Current outpatient therapy is Metformin 500mg PO BID -Hold Metformin -Continue tight glucose control. Per recommendations of general surgery if > 180 use insulin drip. Hypotension, acute. Resolved -Vital signs currently stable -TPN started on 03/27 Continue TPN Hypertension, chronic. Present on admission. Stable -Blood pressures remain stable -Held home antihypertensives: Lisinopril 40mg PO daily, Metoprolol succinate 50mg PO daily - IV metoprolol 2.5 mg every 4 Hyperlipidemia, chronic. Present on admission. Presumed stable. -Continue home dose statin (Simvastatin 20mg PO HS) when able Disposition: Prognosis guarded at this time. Patient will likely require 5-7 more days of inpatient monitoring and treatment. GI Prophylaxis: H2 saw VTE Prophylaxis: Sub-Q Heparin (Unfractionated) VTE Mechanical Devices: Intermittant Pneumatic CD Resuscitation Status: CPR: Attempt Resuscitation Attending Statement The patient was seen and examined together with Dr. Suggs on 04/01/2017 and I agree with the history, exam and plan as outlined in the note above. . Mode Suggs DO Apr 01, 2017 20:54 Darrius Mcmahan MD Apr 02, 2017 07:34
[2017-04-01] MEDS: TPN Per Pharmacist XX SCH (21:18)
[2017-04-01] MEDS: Total Parenteral Nutrition 1 BAG IV SCH (21:18)
[2017-04-01] MEDS: fentaNYL 2,500 mCg/250 mL 2,500 MCG in IV Premix 1 EACH IV SCH (21:19)
[2017-04-02] VITALS (8 sets, daily range): BP systolic 124–151; BP diastolic 54–80; PULSE 99–118; RESP 23–38; O2SAT 92–98
[2017-04-02] MEDS: Chlorhexidine 0.12% 15 mL Oral Solution MT SCH ×6 (00:30→19:39)
[2017-04-02] MEDS: MeTOProlol 1 mg/mL 5 mL Inj IVPUSH SCH ×6 (00:53→19:54)
[2017-04-02] MEDS: Piperacillin-Tazo 3.375 Gm Inj 3.375 GM in Dextrose 5% Minibag Plus 50 ML IV SCH ×3 (00:54→16:29)
[2017-04-02] MEDS: Heparin 5,000 Unit/mL Inj SUBQ SCH ×3 (00:54→16:29)
[2017-04-02 05:00] LABS: BASOPHILS % (AUTO) 0.1 % (0-3); EOSINOPHILS % (AUTO) 3.5 % (0-5); MONOCYTES % (AUTO) 6.7 % (4-12); Mean Corpuscular Hemoglobin 30.6 pg (27.0-35.0); Mean Corpuscular Volume 93.5 fL (81-100); NEUTROPHILS % (AUTO) 78.5 % (40-74); Platelet Count 260 bil/L (150-400)
--- NOTE | 2017-04-02 05:05 | NUR ---
Respiratory, Neuro Vs as noted. Continues on Bipap through the night on 40% fio2 with sats mid 90s without desaturations. Removed dried palque like secretions with oral care. Cough stronger tonight than previous noc with stimulation. Moving left arm some. Moans a little with repositioning. Does not follow commands. Colostomy with small amount yellow brown stool. Midline incision with small amount yellow/red drainage below last staple. Temp maximum 38.5 at 2000 to 37.9 this am. Tele sinus tach with hr 100 to 120.
[2017-04-02 05:34] LABS: Magnesium 2.1 mg/dL (1.6-2.6); Phosphorus 2.9 mg/dL (2.5-4.9)
--- NOTE | 2017-04-02 07:27 | ABG ---
DateTimeAnalyzed 07:18:35 -_ pH ____7.563 - 7.350 7.450 pCO2 ___28.1__ -mmHg 35.0 45.0 pO2 157 -mmHg 69.0 116 HCO3- ___25.3__ -mmol/L 22.0 26.0 ABE ____2.9__ -mmol/L -2.0 2.0 tHb ____9.8__ -g/dL 12.0 18.0 O2Hb ___99.4__ -% COHb ____1.4__ -% 0.0 1.5 MetHb ____0.0__ -% 0.4 1.5 FIO2 ___40.0__ -% CPAP ___13.0__ -cmH2O PEEP ____5.0__ -cmH2O Drawn By as - Date/Time Notified____ 07:27:00 -_ Spontaneous_RR 14 -b/min Oxygen Device 1 ____BIPAP - Notified By AMS - Notified Whom Candi Mischler, RN -__ K+ ____3.7__ -mmol/L 3.5 5.0 Lion test N/A -
--- NOTE | 2017-04-02 08:10 | PCM.PHAPRO ---
Progress TPN Management: -Day 7 of TPN for pt s/p colon resection -pt remains npo -electrolytes, stable -pt received 2 doses of furosemide 20mg iv yesterday -added additional 20meq of KCL to tpn this evening -corrected calcium 9.78 -triglycerides this morning, 360 -formula for this evenin 02-Apr-17 Standard Hang Time: 2100 Substrates Total kcal: 1566 AMINO ACIDS 145 g DEXTROSE 290 g Total Volume (mL): 2400 LIPIDS g Sterile Water for Injection mL To Infuse Over (hrs): 24 Total Volume 2400 mL At at a rate of (mL/hr): 100 Additives Sodium Chloride 80 mEq "typical" daily requirements Sodium Acetate 60 mEq Sodium 50-120mEq Potassium Chloride 60 mEq Potassium 60-120mEq Potassium Phosphate 40 mEq Phosphate 20-40mEq Calcium Gluconate 9.3 mEq Magnesium 8-32mEq Magnesium Sulfate 16 mEq Calcium 9-22mEq Acetate* 80-120mEq Chloride* 80-120mEq Regular Insulin 0 units *Depending on acid-base status Famotidine 40 mg Multivitamins 1 std dose Insulin Regimen Trace Elements 1 std dose none Thiamine mg Regular Low Intensity Subcut Folic Acid mg Regular Medium Intensity Subcut Ascorbic Acid mg Regular High Intensity Subcut Regular Insulin Infusion Other: Malia Guardado [facility] Apr 02, 2017 08:10
[2017-04-02] MEDS: Micafungin Inj 100 MG in 0.9% Sodium Chloride 100 ML IV SCH (08:19)
--- NOTE | 2017-04-02 08:53 | DRSVH ---
PROCEDURE: X-RAY CHEST ONE VIEW, PORTABLE ([id number]) INDICATIONS: Respiratory Distress TECHNIQUE: One view of the chest was acquired. COMPARISON: None. FINDINGS: Surgical changes and devices: An NG tube is present, the tip of which is in the gastric fundus. A rig ht PICC is present, the tip of which is not well-visualized. Lungs and pleura: There is streaky left basilar pulmonary radiopacities. No pleural effusion or pneum othorax. Mediastinum: Mediastinal contours appear normal. Heart size is normal. Bones and chest wall: No suspicious bony lesions. Overlying soft tissues appear unremarkable. IMPRESSION: Left basilar atelectasis or aspiration/infection. Dictated by: Vanessa Torres M.D. on 04/02/2017 at 8:50 Approved by: Vanessa Torres M.D. on 04/02/2017 at 8:51
--- NOTE | 2017-04-02 12:00 | NUR ---
CR signed by verbal signature by pt's . Zohra Riley [employer] O[employer]ATOR
[2017-04-02] MEDS: Dextrose 5% Lactated Ringer's 1,000 ML IV SCH (13:13)
--- NOTE | 2017-04-02 13:22 | PROG NOTE ---
[address] [address] PROGRESS NOTE PATIENT: JOSAFAT SOLIS : 1945 MR#: [id number] ADMIT: 03/24/2017 JOB ID: [id number] DATE: 04/02/2017 PULMONARY CRITICAL CARE PROGRESS NOTE: The patient is a 71-year-old man with renal cell carcinoma, status post resection, on oral chemotherapy, presented to the hospital on March 24 with perforated sigmoid diverticulitis and diverticular abscess, complicated by respiratory failure, septic shock, and encephalopathy. INTERVAL HISTORY: He has remained on BiPAP at 40% FiO2 overnight and for the first time this morning his mentation is clearing somewhat and he is more responsive. He opens his eyes and tries to track and tries to move his toes and hands on command but is not really answering questions so I could not obtain a review of systems. REVIEW OF SYSTEMS: As above. PHYSICAL EXAMINATION: Vital signs reviewed. T-max of 38.5, pulse 110, respirations 30, BP 135/62, sats 96%. Currently off BiPAP on 1 L nasal cannula. General: He is lethargic, eyes closed, gurgling upper airway sounds but tries to open his eyes and move fingers and toes on command which is significantly improved compared to yesterday. Chest: Bilateral gurgling upper airway sounds which are transmitted. LABORATORIES: Reviewed. Chemistry shows procalcitonin remains elevated at 1.5. White count is normal. Cultures: No new growth on blood cultures. IMAGING: Chest x-ray from this morning shows left basilar atelectasis. Arterial blood gas from this morning shows pH 7.56, pCO2 of 28, pO2 of 157, bicarb of 25. ASSESSMENT AND RECOMMENDATIONS: 1. Perforated sigmoid diverticulitis with abscess, status post emergent colonic resection with descending colostomy, March 24. 2. Acute hypoxic respiratory failure. Intubated March 24 and extubated March 31, currently on nasal cannula. 3. Acute encephalopathy/delirium--improving. 4. Renal cell carcinoma status post nephrectomy, on oral chemotherapy with pazopanib. RECOMMENDATIONS: This 71-year-old man with history of renal cell carcinoma that was resected some months ago has been on oral chemotherapy with pazopanib until he presented to the hospital with septic shock due to perforated diverticulitis with abscess. He was taken to the operating room on March 24 for colonic resection, washout and had a colostomy placed. He was eventually extubated on March 31 and had been on BiPAP continuously, significantly encephalopathic and unresponsive, which I had attributed to persistent effects of his sedative medications. He has had a head CT which showed no acute intracranial event and an abdominal CT that showed no active infectious process. He has slowly improved from a mentation standpoint post extubation today. For the first time is sort of following commands and opening eyes. PLAN: Continue with BiPAP q.h.s. and p.r.n. He continues to need aggressive pulmonary toilet and intermittent ORGAN GRINDER suctioning although his cough is getting better. Continue Zosyn and micafungin. I am somewhat concerned about his rising procalcitonin but in the absence of any other signs of infection, I think we should simply monitor this. We may want to consider repeating an abdomen/pelvis CT mid week or later this week if he is showing persistent fever and rising procalcitonin. He is on appropriate DVT prophylaxis and GI prophylaxis is not indicated any longer. Based on conversation with his and his son, he is a FULL CODE. However, if he requires re-intubation, the family has decided to do a short trial of 5-7 days and then transition to comfort measures if he cannot be extubated. They did indicate the patient would not want a tracheostomy. CRITICAL CARE TIME: 40 minutes.
--- NOTE | 2017-04-02 15:26 | PCM.PNMED ---
Subjective Date of Service Apr 02, 2017 Subjective Patient was minimally responsive to external stimuli and able to follow very simple commands, this is much improved since prior examination. Unable to provide ROS. Overnight patient began having consistent output from ostomy. Unable to obtain ROS in thus obtunded patient. Exam Vital Signs Vital Sign - Last Date Time Temp Pulse Resp B/P Pulse Ox O2 Delivery O2 Flow Rate FiO2 04/02/17 12:00 Supplement Oxygen CPAP/BIPAP 04/02/17 12:00 38.2 105 38 151/80 92 4.00 04/02/17 04:41 40 Intake and Output 04/01/17 04/01/17 04/02/17 Cumulative From/Thru 15:00 23:00 07:00 03/24/17 14:24 - 04/02/17 06:07 Intake Total 1569 ml 1535 ml 17197 ml Output Total 1653 ml 1550 ml 53489 ml Balance -84 ml -15 ml 2235 ml Intake Oral 0 ml IV Total 393 ml 304 ml 31647 ml Tube Feeding 40 ml TPN/PPN 1176 ml 1231 ml 5728 ml Tube Irrigant 120 ml Output Urine Total 1050 ml 950 ml 09171 ml Stool Total 15 ml Gastric Drainage Total 600 ml 600 ml 2510 ml Drainage Total 3 ml 0 ml 1133 ml Estimated Blood Loss 120 ml # Bowel Movements 0 Exam Gen: Patient minimally responsive to external stimuli, will follow simple commands Neck: supple, no JVD, R IJ in place HEENT: PERRL, EOMI, no scleral icterus CV: RRR, no murmurs rubs or gallops Resp: Patient with diffuse expiratory wheezing, some rhonchi which minimally clear with weak cough Abd: Midline abdominal incision appears to be healing well, light brown stool in ostomy bag obscuring stoma, will still recoil from abdominal palpation Extr: Mild BL LE pitting edema, no cyanosis or clubbing Neuro: Neuro exam complicated by patient somnolence, no focal neurologic deficit IVs and Medications Medications Reviewed: Medications were reviewed in detail Lab and Diagnostics Item Value Date Time Red Blood Count 3.10 mil/mm3 L 04/02/17 0420 Mean Corpuscular Volume 93.5 fL 04/02/17 0420 Mean Corpuscular Hemoglobin 30.6 pg 04/02/17 0420 Mean Corpuscular Hemoglobin Concent 32.8 % 04/02/17 0420 Red Cell Distribution Width 17.9 % H 04/02/17 042 Neutrophils (%) (Auto) 78.5 % H 04/02/17 042 Lymphocytes (%) (Auto) 9.8 % L 04/02/17 042 Eosinophils (%) (Auto) 3.5 % 04/02/17 042 Basophils (%) (Auto) 0.1 % 04/02/17419 Monocytes (%) (Auto) 6.7 % 04/02/17419 Estimat Glomerular Filtration Rate 95 mL/min 04/02/17419 Calcium Level 8.5 mg/dL 04/02/17419 Phosphorus Level 2.9 mg/dL 04/02/17419 Magnesium Level 2.1 mg/dL 04/02/17419 Total Bilirubin 2.2 mg/dL H 04/02/17 042 Aspartate Amino Transf (AST/SGOT) 82 U/L H 04/02/17 042 Alanine Aminotransferase (ALT/SGPT) 77 U/L H 04/02/17 042 Alkaline Phosphatase 202 U/L H 04/02/17419 Total Protein 5.3 g/dL L 04/02/17419 Albumin 2.4 g/dL L 04/02/17419 Triglycerides Level 360 mg/dL H 04/02/17419 Procalcitonin 1.51 ng/mL H 04/02/17419 Result Diagram: 04/02/17 04204/02/17419 Microbiology Blood culture 2/3 bottles positive for Gram + cocci X-Rays, CTs and MRIs (03/24/17) X-RAY CHEST ONE VIEW, PORTABLE IMPRESSION: No acute pulmonary process. Dictated and approved by: Windy Larsen M.D. on 03/24/2017 at 14:05 (03/24/17) CT ANGIO CHEST PULMONARY EMBOLISM IMPRESSION: 1. No acute pulmonary embolus. 2. 4 mm groundglass nodule. No prior comparisons are available. Please see followup guidelines below. 3. Please see detailed description of abdominal findings on the associated CT of the abdomen from the same date. ADDENDUM: Fleischner Society criteria for SOLID lung nodule followup. Nodule size (mm)Low-risk patientHigh-risk [id number] follow-up neededFollow-up at 12 mo; if no change, no further follow-up>3-7Vogphf-yd CT at 12 mo; if no change, no further follow-up needed.Initial follow-up CT at 6-12 mo, then 18-24 mo if no change. >6-8Initial follow-up CT at 6-12 mo, then 18-24 mo if no change. Initial follow-up CT at 3-6 mo, then 9-12 mo and 24 mo if no change. > 8Follow-up CT at 3, 9, 24 mo. Or PET and/or biopsy.Same as for low-risk pts. Fleischner Society criteria for SUB-SOLID lung nodule followup. Solitary pure ground-glass nodules5 mm or lessNo followup needed. >5 mm3 mo follow-up CT to confirm persistence. Then annual CT for 3 years. Part-solid nodules3 mo follow-up CT to confirm persistence. If persistent with solid component <5 mm, annual CT for at least 3 years. If solid component is 5 mm or more, biopsy or surgical resection. Consider PET-CT for lesions > 10 mm. Multiple sub-solid nodulesPure ground glass nodules [address] at 2 and 4 years. Pure ground glass nodules >5 mm without dominant lesion. [address] to confirm persistence, then annual followup CT for at least 3 years. Dominant nodule(s) with part-solid or solid component. [address] to confirm persistence. If persistent, consider biopsy or surgical resection, carlito if lesions have >5 mm solid component. Dictated and approved by: Vanessa Torres M.D. on 03/24/2017 at 16:23 (03/24/17) CT ABDOMEN AND PELVIS WITH CONTRAST IMPRESSION: 1. Perforated acute diverticulitis with intra-abdominal abscess as above. Given the location posterior to the sigmoid colon and the bladder, this is likely not amenable to percutaneous drainage. Surgical consultation recommended. 2. Multiple foci of pneumoperitoneum. It is unclear whether there is a solitary perforated region of the sigmoid colon in the region of the abscess or if there may be a second bowel perforation more proximally in the left lower quadrant.These findings were discussed with Dr. Moreno at 4:27 PM on 03/24/17. 3. 1.0 cm diameter cystic lesion within the body of the pancreas. This is new when compared with the prior study dated 09/16/16. Differential considerations include both neoplastic and nonneoplastic cystic lesions. 4. Cholelithiasis. No acute cholecystitis. 5. Severe wedge compression deformity at L1 likely pathologic in nature given the expansile lytic lesion in this vertebral body on the study dated 09/16/16. Dictated and approved by: Vanessa Torres M.D. on 03/24/2017 at 16:24 X-RAY CHEST ONE VIEW, PORTABLE IMPRESSION: New ET tube, enteric tube, and left-sided IJ CVC in expected positions. New left pleural effusion with left basilar atelectasis. Dictated by: Bang Chung M.D. on 03/25/2017 at 7:54 Approved by: Bang Chung M.D. on 03/25/2017 at 7:56 X-RAY CHEST ONE VIEW, PORTABLE IMPRESSION: Decreased lung volumes, with patchy left midlung atelectasis. Dictated by: Darius Molina M.D. on 03/26/2017 at 8:30 Approved by: Darius Molina M.D. on 03/26/2017 at 8:33 . Additional Diagnostics Arterial Blood Gas DateTimeAnalyzed 07:18:35 -_ pH ____7.563 - 7.350 7.450 pCO2 ___28.1__ -mmHg 35.0 45.0 pO2 157 -mmHg 69.0 116 HCO3- ___25.3__ -mmol/L 22.0 26.0 ABE ____2.9__ -mmol/L -2.0 2.0 tHb ____9.8__ -g/dL 12.0 18.0 . Assessment & Plan 71 year old gentleman with a history of CAD with 2 stents, COPD, hyperlipidemia , and right-sided renal cell carcinoma (s/p nephrectomy in October 2016) currently treated with Pazopanib presenting to the CCU hypotensive and intubated status post sigmoid colectomy with descending colostomy for perforated diverticulitis. Perforated diverticulitis with intra-abdominal abscess. S/P sigmoid colectomy and descending colostomy, active -Patient continues with increased pain in the abdomen noted by grimacing with palpation. -No longer on sedation -Ostomy with induration and some retraction, improving. Surgery continues to follow and does not see a need for revision at this time. -[place] and ARCELIA drain should remain for now. -Continue IV Zosyn and Micafungin -CT abdomen shows bilateral pleural effusions with atelectasis, no bowel obstruction, diverticulosis, cystic pancreatic mass (decreased), and pneumoperitoneum (likely postoperative) Acute Hypoxic Respiratory Failure due to surgery and COPD, chronic. Present on admission. stable. -Pt intubated and sedated in the CCU. Extubated on 03/31 -Patient requiring frequent suctioning to keep the airway clear -Patient placed on BiPAP for respiratory support as needed -Patient able to tolerate nasal cannula -Family is aware that there is likelihood that he will require reintubation, which they do desire if it comes to that. Coronary artery disease, chronic. Present on admission. stable. -Pt with prior CT and two stents. Presented with mild chest pain with negative cardiac enzymes and no acute ischemic changes noted on ECG. -Continue home simvastatin and aspirin when able -Continuous cardiac monitoring. Renal cell carcinoma of right kidney, chronic. Presumed stable. -Pt is s/p nephrectomy in October 2016, currently treated with Pazopanib and dexamethasone. -CT abd/pelvis showed a renal cyst as above. -Resume oral medications when able Diabetes mellitus, type 2, chronic. Present on admission. Presumed stable. -Serum glucose 114 at presentation -Current outpatient therapy is Metformin 500mg PO BID -Hold Metformin -Continue tight glucose control. Per recommendations of general surgery if > 180 use insulin drip. Hypotension, acute. Resolved -Vital signs currently stable -TPN started on 03/27 Continue TPN Hypertension, chronic. Present on admission. Stable -Blood pressures remain stable -Held home antihypertensives: Lisinopril 40mg PO daily, Metoprolol succinate 50mg PO daily - IV metoprolol 2.5 mg every 4 Hyperlipidemia, chronic. Present on admission. Presumed stable. -Continue home dose statin (Simvastatin 20mg PO HS) when able Disposition: Prognosis guarded at this time. Patient will likely require 5-7 more days of inpatient monitoring and treatment. Pain Evaluation: Adequate Pain Control GI Prophylaxis: H2 saw VTE Prophylaxis: Sub-Q Heparin (Unfractionated) VTE Mechanical Devices: Intermittant Pneumatic CD Resuscitation Status: CPR: Attempt Resuscitation Attending Statement Patient with persistent acute toxic encephalopathy, likely secondary to prolonged sedation. Now minimally responsive to commands, including eye- opening and wiggling toes. The patient was seen and examined together with Dr. Perdomo on 04/02/2017 and I agree with the history, exam and plan as outlined in the note above. . Radhames Perdomo DO Apr 02, 2017 15:26 Darrius Mcmahan MD Apr 02, 2017 15:38
--- NOTE | 2017-04-02 15:29 | NUR ---
Social Work- Continued D/C Planning D: EMR reviewed. Pt is on day 9 of hospitalization. Pt discussed in multidisciplinary rounds, pt continues to detox from intubation medications. Pt is not medically ready for d/c, anticipate at least 4 more days of hospitalization. Pt remains CCU status. T/C to pt's , no d/c needs identified at this time. Pt's is agreeable and ready to engage with d/c c4 planner when d/c needs are known. Pt's is considering adding [facility] to SNF preferences if this is necessary at d/c. Case management will follow up with the pt's and patient when discharge planning is appropriate. A: Pt who remains in CCU. P: Evolving; [facility] [facility] to continue to follow to assess for needs. Pt's 's preference is for SNF at [facility] or potentially [facility] if pt requires this level of care. Zohra Riley, [employer]
--- NOTE | 2017-04-02 16:03 | NUR ---
Mentation/Respiratory/Incision/Stool/Activity/Rash Patient does open eyes, wiggle toes, and squeeze hands upon prompting. Continues to sleep mostly. Does move upper extremities though, L>R. Placed on 1L nc after ABG this morning, but with increased coughing up thick secretions, placed on 4L oxymask with drop in sats. Current sats are at 98%. Patient does require frequent oral suctioning with cough and occ deep suction by RT. Abdominal incision opened up distally by Surgeon and packed due to oozing of wound. Wound covered in ABD and instructions to change dressing daily. Colostomy putting out small amount brown stool. Turning in bed q 2 hours. MD made aware of bilateral side/thigh rash which was outlined on left side as per MD request. Continuing with POC.
--- NOTE | 2017-04-02 16:11 | PROG NOTE ---
[address] [address] PROGRESS NOTE PATIENT: JOSAFAT SOLIS : 1945 MR#: [id number] ADMIT: 03/24/2017 JOB ID: [id number] DATE: 04/02/2017 The patient remains with a low-grade fever to 38.2, continues to be tachycardic. He is a bit more awake today compared to yesterday though still does not answer questions. Nursing reports a small amount of drainage from the lower end of the wound and as I have inspected this, I was able to express some fluid. I therefore opened up his lower midline incision and found a little bit of fluid but no real infection. His stoma appears viable and is functioning well. LABORATORY DATA: White count is 8.8, hematocrit is 29, platelet count is 260. Electrolytes are normal except for an elevated BUN of 39. His liver function tests are somewhat improved with a bilirubin down to 2.2 though his transaminases are essentially unchanged and his alkaline phos has gone up a bit. IMPRESSION/PLAN: Stable, may be slow to clear his sedative medications due to some occult liver dysfunction. I have ordered wound care for his midline wound and if he continues to improve, some consideration could be given to doing a delayed primary closure in a few days.
[2017-04-02] MEDS: TPN Per Pharmacist XX SCH (19:54)
[2017-04-02] MEDS: Total Parenteral Nutrition 1 BAG IV SCH (19:54)
[2017-04-03] VITALS (7 sets, daily range): BP systolic 130–164; BP diastolic 61–74; PULSE 104–118; RESP 24–37; O2SAT 96–99
[2017-04-03] MEDS: Chlorhexidine 0.12% 15 mL Oral Solution MT SCH ×7 (00:08→23:41)
[2017-04-03] MEDS: MeTOProlol 1 mg/mL 5 mL Inj IVPUSH SCH ×7 (00:38→23:41)
[2017-04-03] MEDS: Piperacillin-Tazo 3.375 Gm Inj 3.375 GM in Dextrose 5% Minibag Plus 50 ML IV SCH (00:38)
[2017-04-03] MEDS: Heparin 5,000 Unit/mL Inj SUBQ SCH ×3 (00:41→16:06)
--- NOTE | 2017-04-03 04:34 | NUR ---
Mentation Pt does appear to be more alert and seemingly oriented. Starting to speak more clearly but still mumbles. Refusing oral care with RT. Care ongoing.
[2017-04-03 06:48] LABS: BASOPHILS % (AUTO) 0.1 % (0-3); EOSINOPHILS % (AUTO) 4.1 % (0-5); MONOCYTES % (AUTO) 8.2 % (4-12); Mean Corpuscular Hemoglobin 30.7 pg (27.0-35.0); Mean Corpuscular Volume 95.2 fL (81-100); NEUTROPHILS % (AUTO) 76.6 % (40-74); Platelet Count 318 bil/L (150-400)
[2017-04-03 07:20] LABS: Magnesium 2.3 mg/dL (1.6-2.6); Phosphorus 2.7 mg/dL (2.5-4.9)
[2017-04-03] MEDS: Micafungin Inj 100 MG in 0.9% Sodium Chloride 100 ML IV SCH (08:13)
--- NOTE | 2017-04-03 09:50 | PCM.PNSURG ---
Subjective Visit Information: Reason for Visit Perferated Diverticulitis Surgery/Surgery Date Post-Op Day #10 Date of Admission: Mar 24, 2017 at 17:07 Hospital Day # Subjective: Arousable but not communicative. Nothing by mouth secondary to swallow eval. Making stool via ostomy. Not ambulatory. Gastrointestinal: Passing Stool (via ostomy) Pain Management: IV Push (intermittent IV Dilaudid) Postop Activity: Other (bed rest) Objective Vital Sign- Last 8 Hours Date Time Temp Pulse Resp B/P Pulse Ox O2 Delivery O2 Flow Rate FiO2 04/03/17 04:29 38.3 118 32 142/71 98 OxyMask 4.00 Intake and Output- Last 8 Hour 04/03/17 Cumulative From/Thru 07:00 03/24/17 14:24 - 04/02/17 17:51 Intake Total 78672 ml Output Total 49230 ml Balance 2725 ml Intake Oral 0 ml IV Total 47292 ml Tube Feeding 40 ml TPN/PPN 6850 ml Tube Irrigant 120 ml Output Urine Total 23317 ml Stool Total 15 ml Gastric Drainage Total 2810 ml Drainage Total 1133 ml Estimated Blood Loss 120 ml # Bowel Movements 0 General: Alert, Cooperative, No Acute Distress Lungs: Rhonchorus (bilaterally in the anterolateral werner) Heart: Regular Rate/Rhythm Abdomen: Soft, Non-tender, Non-distended, Ostomy pink & viable (with liquid stool in the bag), Other (left lower abdominal wall erythema is resolving) SURGICAL WOUND : Wound General Appearence: Open (and packed from the and umbilicus down, the wound is clean. Fascia is intact.) Extremities: Thigh&Calf Soft/Nontender Catheters: Urethral 2 Way [place] Result Diagram: 04/03/1727 04/03/1727 Assessment & Plan Impression Primary diagnoses: Perforated diverticulitis with feculent peritonitis. POD #10 with rise in white blood count cell count from 3-8000. Other chronic conditions: 1. Coronary artery disease, status post myocardial infarction (2 stents, 2011) 2. Renal cell carcinoma of the right kidney, chronic/stable. Right nephrectomy 2014 3. Diabetes mellitus type II 4. Hypertension 5. Hyperlipidemia 6. COPD 7. History of hiatal hernia with associated dyspepsia 8. Former cigarette smoker Problems: Plan CT of the abdomen and pelvis today with contrast to rule out abscess. Pain Management: Intermittent IV Dilaudid VTE Prophylaxis: Sub-Q Heparin (Unfractionated) Resuscitation Status: CPR: Attempt Resuscitation Almas Castro PA-C Apr 03, 2017 09:50
--- NOTE | 2017-04-03 10:26 | PCM.PNMED ---
Subjective Date of Service Apr 03, 2017 Subjective Humberto Saldivar is a 71 year old gentleman with a PMH of renal cell carcinoma s/ p nephrectomy with immunotherapy who presented on 03/24 with feculent peritonitis secondary to perforated diverticular abscess. He underwent emergent exploratory laparotomy, sigmoid colectomy, and descending colostomy (Diallo procedure) on the day of admission and was intubated post operatively with extubation on 03/31. Today he is more alert and interactive, will obey commands and respond to verbal stimuli. He is making attempts at verbal communication though is still mostly incomprehensible with little situational awareness. The patient has had consistent low level fevers for the past 2 days without readily identifiable cause. He will undergo CT of the abdomen today to asses for the possibility of occult intra-abdominal process. No significant overnight events. Comprehensive ROS could not be obtained in this minimally communicative patient. Exam Vital Signs Vital Sign - Last Date Time Temp Pulse Resp B/P Pulse Ox O2 Delivery O2 Flow Rate FiO2 04/03/17 04:29 38.3 118 32 142/71 98 OxyMask 4.00 04/02/17 04:41 40 Intake and Output 04/02/17 04/02/17 04/03/17 Cumulative From/Thru 15:00 23:00 07:00 03/24/17 14:24 - 04/02/17 17:51 Intake Total 1490 ml 90141 ml Output Total 1000 ml 39162 ml Balance 490 ml 2725 ml Intake Oral 0 ml IV Total 368 ml 37710 ml Tube Feeding 40 ml TPN/PPN 1122 ml 6850 ml Tube Irrigant 120 ml Output Urine Total 700 ml 68112 ml Stool Total 15 ml Gastric Drainage Total 300 ml 2810 ml Drainage Total 1133 ml Estimated Blood Loss 120 ml # Bowel Movements 0 Exam Gen: Alert but not oriented elderly gentleman on Nasal cannula, follows commands but does not have meaningful interactions Neck: Supple, R IJ in place and appears patent, no JVD HEENT: PERRL, EOMI, no scleral icterus, no conjunctival pallor CV: Regular rhythm with tachycardia, no murmurs rubs or gallops Resp: Wet gurgling breath sounds with coarse rhonchi that minimally clear with cough Abd: slightly firm, distant bowel sounds, Ostomy with light brown liquid stool, midline incision open inferior to the umbilicus extending down to the pubis without signs of purulence or infection Extr: Mild BL LE pitting edema, no cyanosis or clubbing Neuro: CN 2-12 grossly intact, no focal neurologic deficit Psych: Patient making attempts to communicate, but is still largely non- sensical with verbiage IVs and Medications IV Fluids 205 ml NS delivered with IV medications Medications Reviewed: Medications were reviewed in detail Lab and Diagnostics Item Value Date Time Red Blood Count 2.90 mil/mm3 L 04/03/17626 Mean Corpuscular Volume 95.2 fL 04/03/17626 Mean Corpuscular Hemoglobin 30.7 pg 04/03/17626 Mean Corpuscular Hemoglobin Concent 32.2 % 04/03/17626 Red Cell Distribution Width 18.0 % H 04/03/17626 Neutrophils (%) (Auto) 76.6 % H 04/03/17626 Lymphocytes (%) (Auto) 8.9 % L 04/03/17626 Monocytes (%) (Auto) 8.2 % 04/03/17626 Eosinophils (%) (Auto) 4.1 % 04/03/17626 Basophils (%) (Auto) 0.1 % 04/03/17626 Estimat Glomerular Filtration Rate 93 mL/min 04/03/17626 Calcium Level 8.6 mg/dL 04/03/17626 Phosphorus Level 2.7 mg/dL 04/03/17626 Magnesium Level 2.3 mg/dL 04/03/17626 Procalcitonin 1.20 ng/mL H 04/03/17626 Result Diagram: 04/03/1762604/03/17626 Microbiology Blood culture 2/3 bottles positive for Gram + cocci X-Rays, CTs and MRIs (03/24/17) X-RAY CHEST ONE VIEW, PORTABLE IMPRESSION: No acute pulmonary process. Dictated and approved by: Windy Larsen M.D. on 03/24/2017 at 14:05 (03/24/17) CT ANGIO CHEST PULMONARY EMBOLISM IMPRESSION: 1. No acute pulmonary embolus. 2. 4 mm groundglass nodule. No prior comparisons are available. Please see followup guidelines below. 3. Please see detailed description of abdominal findings on the associated CT of the abdomen from the same date. ADDENDUM: Fleischner Society criteria for SOLID lung nodule followup. Nodule size (mm)Low-risk patientHigh-risk [id number] follow-up neededFollow-up at 12 mo; if no change, no further follow-up>[id number] CT at 12 mo; if no change, no further follow-up needed.Initial follow-up CT at 6-12 mo, then 18-24 mo if no change. >6-8Initial follow-up CT at 6-12 mo, then 18-24 mo if no change. Initial follow-up CT at 3-6 mo, then 9-12 mo and 24 mo if no change. > 8Follow-up CT at 3, 9, 24 mo. Or PET and/or biopsy.Same as for low-risk pts. Fleischner Society criteria for SUB-SOLID lung nodule followup. Solitary pure ground-glass nodules5 mm or lessNo followup needed. >5 mm3 mo follow-up CT to confirm persistence. Then annual CT for 3 years. Part-solid nodules3 mo follow-up CT to confirm persistence. If persistent with solid component <5 mm, annual CT for at least 3 years. If solid component is 5 mm or more, biopsy or surgical resection. Consider PET-CT for lesions > 10 mm. Multiple sub-solid nodulesPure ground glass nodules [address] at 2 and 4 years. Pure ground glass nodules >5 mm without dominant lesion. [address] to confirm persistence, then annual followup CT for at least 3 years. Dominant nodule(s) with part-solid or solid component. [address] to confirm persistence. If persistent, consider biopsy or surgical resection, carlito if lesions have >5 mm solid component. Dictated and approved by: Vanessa Torres M.D. on 03/24/2017 at 16:23 (03/24/17) CT ABDOMEN AND PELVIS WITH CONTRAST IMPRESSION: 1. Perforated acute diverticulitis with intra-abdominal abscess as above. Given the location posterior to the sigmoid colon and the bladder, this is likely not amenable to percutaneous drainage. Surgical consultation recommended. 2. Multiple foci of pneumoperitoneum. It is unclear whether there is a solitary perforated region of the sigmoid colon in the region of the abscess or if there may be a second bowel perforation more proximally in the left lower quadrant.These findings were discussed with Dr. Moreno at 4:27 PM on 03/24/17. 3. 1.0 cm diameter cystic lesion within the body of the pancreas. This is new when compared with the prior study dated 09/16/16. Differential considerations include both neoplastic and nonneoplastic cystic lesions. 4. Cholelithiasis. No acute cholecystitis. 5. Severe wedge compression deformity at L1 likely pathologic in nature given the expansile lytic lesion in this vertebral body on the study dated 09/16/16. Dictated and approved by: Vanessa Torres M.D. on 03/24/2017 at 16:24 X-RAY CHEST ONE VIEW, PORTABLE IMPRESSION: New ET tube, enteric tube, and left-sided IJ CVC in expected positions. New left pleural effusion with left basilar atelectasis. Dictated by: Bang Chung M.D. on 03/25/2017 at 7:54 Approved by: Bang Chung M.D. on 03/25/2017 at 7:56 X-RAY CHEST ONE VIEW, PORTABLE IMPRESSION: Decreased lung volumes, with patchy left midlung atelectasis. Dictated by: Darius Molina M.D. on 03/26/2017 at 8:30 Approved by: Darius Molina M.D. on 03/26/2017 at 8:33 . Additional Diagnostics Arterial Blood Gas DateTimeAnalyzed 07:18:35 -_ pH ____7.563 - 7.350 7.450 pCO2 ___28.1__ -mmHg 35.0 45.0 pO2 157 -mmHg 69.0 116 HCO3- ___25.3__ -mmol/L 22.0 26.0 ABE ____2.9__ -mmol/L -2.0 2.0 tHb ____9.8__ -g/dL 12.0 18.0 . Assessment & Plan 71 year old gentleman with a history of CAD with 2 stents, COPD, hyperlipidemia , and right-sided renal cell carcinoma (s/p nephrectomy in October 2016) currently treated with Pazopanib who presented to the CCU hypotensive and intubated status post sigmoid colectomy with descending colostomy for perforated diverticulitis. Patient was extubated 03/31 and is doing relatively well on Nasal cannula. Perforated diverticulitis with intra-abdominal abscess. S/P sigmoid colectomy and descending colostomy, active -Patient continues with increased pain in the abdomen noted by grimacing with palpation. -No longer on sedation -Ostomy with induration and some retraction, improving. Surgery continues to follow and does not see a need for revision at this time. -[place] and ARCELIA drain should remain for now. -Continue IV Micafungin, will substitute Zosyn with Meropenem for extended ESBL and pseudomonal coverage -CT abdomen shows bilateral pleural effusions with atelectasis, no bowel obstruction, diverticulosis, cystic pancreatic mass (decreased), and pneumoperitoneum (likely postoperative) -Repeat CT of abdomen pending Acute Hypoxic Respiratory Failure due to surgery and COPD, chronic. Present on admission. stable. -Pt intubated and sedated in the CCU. Extubated on 03/31 -Patient requiring frequent suctioning to keep the airway clear -Patient placed on BiPAP for respiratory support as needed, subsequently transitioned to Nasal Cannula -Family is aware that there is a possibility that he will require reintubation, which they do desire if it comes to that. -TPN will continue until patient is sufficiently cogent to pass swallow eval Coronary artery disease, chronic. Present on admission. stable. -Pt with prior FL and two stents. Presented with mild chest pain with negative cardiac enzymes and no acute ischemic changes noted on ECG. -Continue home simvastatin and aspirin when able -Continuous cardiac monitoring. Encephalopathy, POA, acute. Improving -Likely secondary to sedating medications and sepsis -Improving with increasing responsiveness -Swallow eval pending once patient is more alert Renal cell carcinoma of right kidney, chronic. Presumed stable. -Pt is s/p nephrectomy in October 2016, currently treated with Pazopanib and dexamethasone. -CT abd/pelvis showed a renal cyst as above. -Resume oral medications when able Diabetes mellitus, type 2, chronic. Present on admission. Presumed stable. -Serum glucose 114 at presentation -Current outpatient therapy is Metformin 500mg PO BID -Hold Metformin -Continue tight glucose control. Per recommendations of general surgery if > 180 use insulin drip. Hypotension, acute. Resolved -Vital signs currently stable -TPN started on 03/27 Continue TPN Hypertension, chronic. Present on admission. Stable -Blood pressures remain stable -Held home antihypertensives: Lisinopril 40mg PO daily, Metoprolol succinate 50mg PO daily - IV metoprolol 2.5 mg every 4, patient with transient tachycardia responsive to this agent Hyperlipidemia, chronic. Present on admission. Presumed stable. -Continue home dose statin (Simvastatin 20mg PO HS) when able Pain Evaluation: Adequate Pain Control GI Prophylaxis: H2 saw VTE Prophylaxis: Sub-Q Heparin (Unfractionated) VTE Mechanical Devices: Intermittant Pneumatic CD Resuscitation Status: CPR: Attempt Resuscitation Radhames Perdomo DO Apr 03, 2017 10:25
--- NOTE | 2017-04-03 11:01 | NUR ---
NUTRITION FOLLOW UP: ASSESS: 71 YO M admitted to CCU with perforated diverticulitis, pneumoperitoneum with peritonitis, s/p exploratory laparotomy with sigmoid/descending colon resection, Diallo's and end-descending colostomy. Pt extubated 03/31. Lipids removed from TPN due to elevated triglycerides, LFT's. Neurological status improving per CCU rounds. PMHx: Renal cell cancer with current chemotherapy, immunosuppression, R. nephrectomy, CAD, COPD, HTN, dyslipidemia, type 2 diabetes, hiatal hernia, GI bleed. DIET: NPO. TPN: Dex 290 g, AA 145 g, no lipids, providing 1566 kcal, 145 g protein, meeting approx. 81% kcal, 100% protein needs. LABS: Reviewed. BUN 41, Glu 146, (04/02): Alb 2.4 MEDICATIONS: Reviewed. Lopressor, lasix, albumin. GI: Stool via colostomy. 1 BM 04/03 per rectum. SKIN: Per Academic Associate, there is no skin breakdown or erythremic areas noted. ANTHROPOMETRICS: Current Wt: 87.0 kg, BMI: 25.3 kg/m2. IBW: 83.64 kg (105% IBW) ESTIMATED NEEDS (GI SURGERY, POSS. WOUNDS): Calories: 4728-1447 kcal/day (22-25 kcal/kg BW) Protein: 132-159 g/day (1.5-1.8 g/kg BW) Fluid: Approx. 2643 mL (30 mL/kg BW) NUTRITION DIAGNOSIS: 1) Inadequate oral intake related to altered GI function, as evidenced by colectomy/colostomy, NPO status - PERSISTS. INTERVENTION: 1) Continue current TPN without lipids to determine cause of lab abnormalities. Consider adding lipids back in to TPN if labs remain stable. MONITOR/EVALUATE: NPO status, labs, TPN tolerance/advance, GI/nutrition status. Follow per high nutrition risk guidelines.
--- NOTE | 2017-04-03 12:12 | NUR ---
Inpatient Wound and Ostomy Nurse Patient seen for wound care of abdominal incision. Most recently applied dressing was loose and packing wet but not overly saturated. Paper tape was stretched across entire lower abdomen and into pubic zone. Wound bed beefy red, non-odorous, moderate amount of serosanguinous drainage. Periwound warm, dry, pink, edges well-adhered, no maceration. Removal of packing elicited pain response with moaning from patient and quick movement of L hand toward abdomen. No debridement of wound is recommended, as tissue is beefy red and fully granulating. Since no debridement is recommended, alternatives to wet to dry packing are recommended. Wound was cleansed with normal saline and blotted dry with sterile gauze. Wound was packed with large piece of Aquacel Extra Ag folded in half lengthwise and placed into wound. All planes of wound bed were in contact with Aquacel fibers. A secondary dressing of Mepilex bordered sacral dressing with silicone facing was applied upside down. This will allow the broadest portion of the dressing to cover the wound which gapes horizontally whenever head of bed is raised. Because border of this dressing is silicone, it is designed to be peeled back multiple times for wound assessment, which may be beneficial to this patient, as he also has ostomy wafer and drain site on abdomen. Tape is avoided whenever possible to reduce tension on wound margins, and so, silicone bordered dressing is preferable which can be changed PRN. Aquacel Extra Ag packing can be changed q 3 days, although CWON will see patient tomorrow and change if needed.
[2017-04-03] MEDS: Meropenem 1 Gm/100 mL NS Minibag Plus IV SCH ×6 (12:13→23:40)
--- NOTE | 2017-04-03 12:25 | NUR ---
Mentation/Incision/Stool Pt alert today, speech very soft and difficult to understand, seems to be answering questions appropriately. Refusing oral care/suctioning. Wound RN changed abd dsg, see note. Scant serosang output from R ARCELIA. L colostomy with light brown stool. BM per rectum this morning, as well. Family at bedside.
--- NOTE | 2017-04-03 12:26 | PCM.PHAPRO ---
Progress tpn#7 I. Fluid status HR/BR/ weight trends suggest pt may be dry p/ Increase fluid/Na to 2.8 liters and 180mEq Na (100mEq/L) II. Chem Lytes wnl and w/o trends BUN/SCr tend to support mild hypovolemia III. Glycemic Control BS remain <150 w/o exogenous insulin IV. Macronutrients Fats continue to be omitted - will consult dietary for possible 3x/week if projected NPO status warrants. PARENTERAL NUTRITION ORDERS 8 03-Apr-17 Standard Hang Time: 2100 Substrates Total kcal: 1566 AMINO ACIDS 145 g DEXTROSE 290 g Total Volume (mL): 2800 LIPIDS g Sterile Water for Injection mL To Infuse Over (hrs): 24 Total Volume 2800 mL At at a rate of (mL/hr): 117 Additives Sodium Chloride 100 mEq "typical" daily requirements Sodium Acetate 80 mEq Sodium 50-120mEq Potassium Chloride 60 mEq Potassium 60-120mEq Potassium Phosphate 40 mEq Phosphate 20-40mEq Calcium Gluconate 9.3 mEq Magnesium 8-32mEq Magnesium Sulfate 16 mEq Calcium 9-22mEq Acetate* 80-120mEq Chloride* 80-120mEq Regular Insulin 0 units *Depending on acid-base status Famotidine 40 mg Multivitamins 1 std dose Insulin Regimen Trace Elements 1 std dose none Thiamine mg Regular Low Intensity Subcut Folic Acid mg Regular Medium Intensity Subcut Ascorbic Acid mg Regular High Intensity Subcut Regular Insulin Infusion Other: Special Instructions: To be infused via central line only. For delay or inturruption of TPN contact the pharmacist for alternative replacement solution. Phi Marquez Pharm D Apr 03, 2017 12:26
--- NOTE | 2017-04-03 14:44 | DRSVH ---
PROCEDURE: X-RAY CHEST ONE VIEW, PORTABLE ([id number]) INDICATIONS: fu post extubation TECHNIQUE: One view of the chest was acquired. COMPARISON: [facility], CR, XR CHEST 1VW (PORTABLE), 04/02/2017, 4:40. FINDINGS: Surgical changes and devices: Stable positioning of right PICC. Nasogastric tube tip traverses the G E junction. Lungs and pleura: Persistent small left pleural effusion and slight decrease in left basilar airspace opacity. Right lung is clear. Mediastinum: Mediastinal contours appear normal. Heart size is normal. Bones and chest wall: No suspicious bony lesions. Overlying soft tissues appear unremarkable. IMPRESSION: Trace left pleural effusion and slight decrease in left basilar airspace opacity consiste nt with compressive atelectasis versus infection. Dictated by: Abiodun Crockett [facility] Interpreted: Jimbo Timmons MD on 04/03/2017 at 10:51 Approved by: Jimbo Timmons M.D. on 04/03/2017 at 14:42
--- NOTE | 2017-04-03 14:48 | PCM.PNMED ---
Subjective Date of Service Apr 03, 2017 Subjective Subjective: Patient was minimally responsive this morning, opening his eyes to verbal stimulation, able to follow some commands with repeated stimulation. Events Overnight: No acute events overnight. ROS: Due to the patient being somnolent, a review of systems was unable to be obtained. Exam Vital Signs Vital Sign - Last Date Time Temp Pulse Resp B/P Pulse Ox O2 Delivery O2 Flow Rate FiO2 04/03/17 12:18 Supplement Oxygen CPAP/BIPAP 04/03/17 12:18 38.0 117 32 153/61 99 4.00 04/02/17 04:41 40 Intake and Output 04/02/17 04/02/17 04/03/17 Cumulative From/Thru 15:00 23:00 07:00 03/24/17 14:24 - 04/02/17 17:51 Intake Total 1490 ml 29188 ml Output Total 1000 ml 59454 ml Balance 490 ml 2725 ml Intake Oral 0 ml IV Total 368 ml 84026 ml Tube Feeding 40 ml TPN/PPN 1122 ml 6850 ml Tube Irrigant 120 ml Output Urine Total 700 ml 56577 ml Stool Total 15 ml Gastric Drainage Total 300 ml 2810 ml Drainage Total 1133 ml Estimated Blood Loss 120 ml # Bowel Movements 0 Exam General: Extubated, breathing under own power, on oxygen rebreather mask 15 L, unresponsive even to vigorous verbal stimulation HEENT: Normocephalic, atraumatic. External ears without defect. Pupils equal, round, and reactive to light and accommodation. Anicteric sclerae, moist conjunctivae. IJ in place Cardiovascular: Regular rate and rhythm with no murmurs, rubs, or gallops appreciated Pulmonary: Patient is currently on breathing under his own power, breath sounds diminished, minor wheezing and rhonchi, no rales Abdomen: Bowel tones absent. Soft, slightly distended, tender, indurated and retracted ostomy maroon colored with underlying pink color, small amount of brown feces. Well-healing incision closed with radha, minor erythema. ARCELIA drain in place. Grimacing with palpation of the abdomen. Extremities: No clubbing, cyanosis, edema, decreased color and warmth of the left leg compared to right. Pulses intact. Skin: Normal temperature, turgor, and texture; no rash, ulcers, or subcutaneous nodules appreciated. Neurological: Unable to assess. Normal tone Psychiatric: Unable to assess IVs and Medications IV Fluids 250 mL normal saline delivered with IV medications. Medications Reviewed: Medications were reviewed in detail Lab and Diagnostics Result Diagram: 04/03/1727 04/03/17626 Microbiology Blood culture 2/3 bottles positive for Gram + cocci X-Rays, CTs and MRIs (03/24/17) X-RAY CHEST ONE VIEW, PORTABLE IMPRESSION: No acute pulmonary process. Dictated and approved by: Windy Larsen M.D. on 03/24/2017 at 14:05 (03/24/17) CT ANGIO CHEST PULMONARY EMBOLISM IMPRESSION: 1. No acute pulmonary embolus. 2. 4 mm groundglass nodule. No prior comparisons are available. Please see followup guidelines below. 3. Please see detailed description of abdominal findings on the associated CT of the abdomen from the same date. ADDENDUM: Fleischner Society criteria for SOLID lung nodule followup. Nodule size (mm)Low-risk patientHigh-risk [id number] follow-up neededFollow-up at 12 mo; if no change, no further follow-up>2-2Qinmcy-rd CT at 12 mo; if no change, no further follow-up needed.Initial follow-up CT at 6-12 mo, then 18-24 mo if no change. >6-8Initial follow-up CT at 6-12 mo, then 18-24 mo if no change. Initial follow-up CT at 3-6 mo, then 9-12 mo and 24 mo if no change. > 8Follow-up CT at 3, 9, 24 mo. Or PET and/or biopsy.Same as for low-risk pts. Fleischner Society criteria for SUB-SOLID lung nodule followup. Solitary pure ground-glass nodules5 mm or lessNo followup needed. >5 mm3 mo follow-up CT to confirm persistence. Then annual CT for 3 years. Part-solid nodules3 mo follow-up CT to confirm persistence. If persistent with solid component <5 mm, annual CT for at least 3 years. If solid component is 5 mm or more, biopsy or surgical resection. Consider PET-CT for lesions > 10 mm. Multiple sub-solid nodulesPure ground glass nodules [address] at 2 and 4 years. Pure ground glass nodules >5 mm without dominant lesion. [address] to confirm persistence, then annual followup CT for at least 3 years. Dominant nodule(s) with part-solid or solid component. [address] to confirm persistence. If persistent, consider biopsy or surgical resection, carlito if lesions have >5 mm solid component. Dictated and approved by: Vanessa Torres M.D. on 03/24/2017 at 16:23 (03/24/17) CT ABDOMEN AND PELVIS WITH CONTRAST IMPRESSION: 1. Perforated acute diverticulitis with intra-abdominal abscess as above. Given the location posterior to the sigmoid colon and the bladder, this is likely not amenable to percutaneous drainage. Surgical consultation recommended. 2. Multiple foci of pneumoperitoneum. It is unclear whether there is a solitary perforated region of the sigmoid colon in the region of the abscess or if there may be a second bowel perforation more proximally in the left lower quadrant.These findings were discussed with Dr. Moreno at 4:27 PM on 03/24/17. 3. 1.0 cm diameter cystic lesion within the body of the pancreas. This is new when compared with the prior study dated 09/16/16. Differential considerations include both neoplastic and nonneoplastic cystic lesions. 4. Cholelithiasis. No acute cholecystitis. 5. Severe wedge compression deformity at L1 likely pathologic in nature given the expansile lytic lesion in this vertebral body on the study dated 09/16/16. Dictated and approved by: Vanessa Torres M.D. on 03/24/2017 at 16:24 X-RAY CHEST ONE VIEW, PORTABLE IMPRESSION: New ET tube, enteric tube, and left-sided IJ CVC in expected positions. New left pleural effusion with left basilar atelectasis. Dictated by: Bang Chung M.D. on 03/25/2017 at 7:54 Approved by: Bang Chung M.D. on 03/25/2017 at 7:56 X-RAY CHEST ONE VIEW, PORTABLE IMPRESSION: Decreased lung volumes, with patchy left midlung atelectasis. Dictated by: Darius Molina M.D. on 03/26/2017 at 8:30 Approved by: Darius Molina M.D. on 03/26/2017 at 8:33 . Additional Diagnostics Arterial Blood Gas DateTimeAnalyzed 07:18:35 -_ pH ____7.563 - 7.350 7.450 pCO2 ___28.1__ -mmHg 35.0 45.0 pO2 157 -mmHg 69.0 116 HCO3- ___25.3__ -mmol/L 22.0 26.0 ABE ____2.9__ -mmol/L -2.0 2.0 tHb ____9.8__ -g/dL 12.0 18.0 . Assessment & Plan 71 year old gentleman with a history of CAD with 2 stents, COPD, hyperlipidemia , and right-sided renal cell carcinoma (s/p nephrectomy in October 2016) currently treated with Pazopanib presenting to the CCU hypotensive and intubated status post sigmoid colectomy with descending colostomy for perforated diverticulitis. Perforated diverticulitis with intra-abdominal abscess. S/P sigmoid colectomy and descending colostomy, active -No longer on sedation -Ostomy output appropriate -[place] and ARCELIA drain should remain for now. -Continue IV Zosyn and Micafungin -CT abdomen completed 03/30 shows bilateral pleural effusions with atelectasis, no bowel obstruction, diverticulosis, cystic pancreatic mass (decreased), and pneumoperitoneum (likely postoperative) -Repeat CT abdomen 04/03 Acute Hypoxic Respiratory Failure due to surgery and COPD, chronic. Present on admission. stable. -Pt intubated and sedated in the CCU. Extubated on 03/31 -Patient requiring frequent suctioning to keep the airway clear -Patient currently tolerating 4 L nasal cannula Coronary artery disease, chronic. Present on admission. stable. -Pt with prior NM and two stents. Presented with mild chest pain with negative cardiac enzymes and no acute ischemic changes noted on ECG. -Continue home simvastatin and aspirin when able -Continuous cardiac monitoring. Renal cell carcinoma of right kidney, chronic. Presumed stable. -Pt is s/p nephrectomy in October 2016, currently treated with Pazopanib and dexamethasone. -CT abd/pelvis showed a renal cyst as above. -Resume oral medications when able Diabetes mellitus, type 2, chronic. Present on admission. Presumed stable. -Current outpatient therapy is Metformin 500mg PO BID -Hold Metformin -Continue tight glucose control. Per recommendations of general surgery if > 180 use insulin drip. Hypotension, acute. Resolved -Vital signs currently stable -TPN started on 03/27 Continue TPN Hypertension, chronic. Present on admission. Stable -Blood pressures remain stable -Held home antihypertensives: Lisinopril 40mg PO daily, Metoprolol succinate 50mg PO daily - IV metoprolol 2.5 mg every 4 Hyperlipidemia, chronic. Present on admission. Presumed stable. -Continue home dose statin (Simvastatin 20mg PO HS) when able Disposition: Prognosis guarded at this time. Patient will likely require 5-7 more days of inpatient monitoring and treatment. Pain Evaluation: Adequate Pain Control GI Prophylaxis: H2 saw VTE Prophylaxis: Sub-Q Heparin (Unfractionated) VTE Mechanical Devices: Intermittant Pneumatic CD Resuscitation Status: CPR: Attempt Resuscitation Time spent 25 minutes Attending Statement I have seen and evaluated patient at bedside in addition to directly supervising care provided by resident physician. I agree with above documentation. Pt was transitioned to Meropenem today for improved coverage of ESBL. Otherwise mentation continues gradually to improve, not yet at reported baselined. Mode Suggs DO Apr 03, 2017 14:48 Jose Deal DO Apr 03, 2017 15:21
--- NOTE | 2017-04-03 15:41 | DRSVH ---
PROCEDURE: CT ABDOMEN AND PELVIS WITH CONTRAST ([id number]) INDICATIONS: abscess TECHNIQUE: After the administration of oral and intravenous contrast, 5 mm thick sections acquired from the diap hragms to the symphysis. 5 mm thick coronal and sagittal reformats were performed. For radiation do se reduction, the following was used: automated exposure control, adjustment of mA and/or kV accordi ng to patient size. COMPARISON: [facility], CT, CT ABD PANCREATIC PROTOCOL, 09/16/2016, 8:35. [facility], CT, CT ABD PELVIS W CON, 03/24/2017, 16:06. [facility], CT, CT ABD PELVIS W CON , 03/30/2017, 15:55. FINDINGS: Image quality: Excellent. ABDOMEN: Lung bases: There is improved aeration of the bilateral lung bases when compared with the study dated 03/30/17, although there is some persistent consolidation at the dependent lung bases. Additionally, the low density pleural effusions have slightly decreased in size. Heart is normal size. No pericardi al effusion. Solid organs: Liver and spleen are normal in size and enhancement. 2 subcentimeter calcified gallsto bal are present near the gallbladder neck. No gallbladder wall thickening or pericholecystic fluid. B iliary system is non-dilated. Pancreas enhances normally. The right adrenal gland and right kidney a re not visualized and are presumably surgically absent. The left adrenal nodules. The left kidney dem onstrates normal size and enhancement. A low density cyst is present at the midpole. Peritoneum and bowel: These stomach and small bowel demonstrate normal caliber and wall thickness. An NG tube is coiled within the gastric fundus. Patient is status post subtotal colectomy. A surgical d rain is present within the pelvis. There is a small amount of low-density pericolonic free fluid surr ounding the surgical drain which measures approximately 3.4 x 1.9 cm in the coronal plane (series 4, image 28). This is unchanged when compared with the study dated 03/30/17. No discrete rim enhancement to suggest organizing abscess. Nodes and vessels: No retroperitoneal or mesenteric adenopathy. Aorta and inferior vena cava are no rmal in caliber. There are scattered atheromatous calcifications throughout the aorta and iliac irene anton bilaterally. Miscellaneous: There is apparent interval dehiscence of the midline incision when compared with the p rior study. PELVIS: Genitourinary: Bladder wall thickness is normal. Miscellaneous: No inguinal adenopathy. There is a small fat containing inguinal hernia. Bones: No suspicious bony lesions. Severe T12 wedge compression deformity is redemonstrated. IMPRESSION: 1. Stable low density fluid collection around the surgical drain when compared with the study dated . No definite rim enhancement to suggest organizing abscess. 2. Decreased pleural effusions and consolidation at the lung bases are with the prior study. Dictated by: Vanessa Torres M.D. on 04/03/2017 at 15:29 Approved by: Vanessa Torres M.D. on 04/03/2017 at 15:39
[2017-04-03] MEDS ORDERED: Acetaminophen IV 1,000 MG in IV Premix 1 EACH IV PRN (16:00)
--- NOTE | 2017-04-03 17:31 | NUR ---
P: Pain I: Pt more awake and is able to answer questions appropriately. Pt is very weak but tries to help with turns. NGT patent and drained 600cc of green fluid. Colostomy draining brown stool 375cc. Right art line patent. Rt PICC patent. Pt grimaced with turns and IV Tylenol ordered and given. Now pt states pain is better and he is smiling and joking. Incontinent of small liquid stool from rectum. Mary Lou care and linen changed. TPN infusing without difficulty. Oral care completed and pt assists with oral suctioning. [place] patent and draining odalys urine. Abdominal dressing that was changed by wound care intact. ARCELIA patent and drained 20cc of brownish red drainage. ARCELIA dressing dry and intact. SCD's on pt. Pt turned Q 2 hours. sats stable on 4L/OM. Watching TV. E: Stable S: Alert and answers questions appropriately. Frequent rounding. Pt not pulling at lines.
[2017-04-03] MEDS: TPN Per Pharmacist XX SCH (20:15)
[2017-04-03] MEDS: Total Parenteral Nutrition 1 BAG IV SCH (20:15)
[2017-04-04] MEDS: Heparin 5,000 Unit/mL Inj SUBQ SCH ×4 (00:01→23:56)
[2017-04-04 03:00] VITALS: BP 143/56; PULSE 98; RESP 39; O2SAT 97
[2017-04-04] MEDS: MeTOProlol 1 mg/mL 5 mL Inj IVPUSH SCH ×6 (04:35→23:56)
[2017-04-04] MEDS: Chlorhexidine 0.12% 15 mL Oral Solution MT SCH ×6 (04:36→19:31)
[2017-04-04 05:20] LABS: Mean Corpuscular Hemoglobin 30.9 pg (27.0-35.0); Mean Corpuscular Volume 96.1 fL (81-100)
[2017-04-04 05:49] LABS: INR 0.96 ratio
[2017-04-04 05:55] LABS: Magnesium 2.2 mg/dL (1.6-2.6); Phosphorus 2.5 mg/dL (2.5-4.9)
--- NOTE | 2017-04-04 06:43 | NUR ---
NOC shift Pt rested well throughout shift with no complaints of pain. He is more alert but still mumbles when speaking. Pt remained on 4L NC throughout shift. Dallas draining adequate urine to gravity, colostomy continues to function properly, and pt did have stools via rectum that appeared primarily mucous based. Labs appear stable this morning and are in line with current trends. Will continue to monitor. See flow sheet for further details.
[2017-04-04 08:00] VITALS: BP 148/61; PULSE 115; RESP 36; O2SAT 96
[2017-04-04] MEDS: Micafungin Inj 100 MG in 0.9% Sodium Chloride 100 ML IV SCH (08:11)
[2017-04-04] MEDS: Meropenem Inj 2,000 MG in 0.9% Sodium Chloride 100 ML IV SCH ×3 (09:09→23:56)
[2017-04-04] MEDS: Meropenem 1 Gm/100 mL NS Minibag Plus IV SCH ×2 (09:10)
--- NOTE | 2017-04-04 09:28 | PCM.PHAPRO ---
Progress PARENTERAL NUTRITION ORDERS 9 04-Apr-17 Standard Hang Time: 2100 Substrates Total kcal: 1760 AMINO ACIDS 135 g DEXTROSE 300 g Total Volume (mL): 2800 LIPIDS 20 g Sterile Water for Injection mL To Infuse Over (hrs): 24 Total Volume 2800 mL At at a rate of (mL/hr): 117 Additives Sodium Chloride 100 mEq "typical" daily requirements Sodium Acetate 80 mEq Sodium 50-120mEq Potassium Chloride 60 mEq Potassium 60-120mEq Potassium Phosphate 40 mEq Phosphate 20-40mEq Calcium Gluconate 9.3 mEq Magnesium 8-32mEq Magnesium Sulfate 16 mEq Calcium 9-22mEq Acetate* 80-120mEq Chloride* 80-120mEq Regular Insulin 0 units *Depending on acid-base status Famotidine 40 mg Multivitamins 1 std dose Insulin Regimen Trace Elements 1 std dose none Thiamine mg Regular Low Intensity Subcut Folic Acid mg Regular Medium Intensity Subcut Ascorbic Acid mg Regular High Intensity Subcut Regular Insulin Infusion Other: Special Instructions: To be infused via central line only. For delay or inturruption of TPN contact the pharmacist for alternative replacement solution. Phi Marquez Pharm D Apr 04, 2017 09:28
--- NOTE | 2017-04-04 09:36 | PCM.PNSURG ---
Subjective Date of Service: Apr 04, 2017 Visit Information: Reason for Visit Perferated Diverticulitis Surgery/Surgery Date Post-Op Day # Date of Admission: Mar 24, 2017 at 17:07 Hospital Day # Subjective: Continues to spike fevers to Tmax of 38.4 overnight Tachycardic in 100s-110s Patient denies any complaints, noting he has no abdominal pain, difficulty breathing, or nausea Objective Vital Sign- Last 8 Hours Date Time Temp Pulse Resp B/P Pulse Ox O2 Delivery O2 Flow Rate FiO2 04/04/17 03:00 36.9 98 39 143/56 97 Nasal Cannula 4.00 04/04/17 03:00 Supplement Oxygen CPAP/BIPAP Intake and Output- Last 8 Hour 04/04/17 Cumulative From/Thru 06:59 03/24/17 14:24 - 04/04/17 05:14 Intake Total 1488 ml 06292 ml Output Total 1205 ml 13612 ml Balance 283 ml 1540 ml Intake Oral 0 ml IV Total 262 ml 18616 ml Tube Feeding 40 ml TPN/PPN 1226 ml 9081 ml Tube Irrigant 120 ml Output Urine Total 800 ml 88708 ml Stool Total 640 ml Gastric Drainage Total 400 ml 4060 ml Drainage Total 5 ml 1173 ml Estimated Blood Loss 120 ml # Bowel Movements 1 General: Alert, Cooperative, No Acute Distress Neck: Supple Lungs: Other (Rhoncherous on R, clear on L. Good air movement bilaterally. ) Abdomen: Other (Lower midline abdominal wound covered by mepilex. LLQ ostomy with stool in bag. RLQ ARCELIA drain with serosanguinous output. L flank with erythematous rash v cellulitis) Extremities: Warm, Other (1+ pitting edema bilaterally. ) Result Diagram: 04/04/17 0500 04/04/17 0500 Assessment & Plan Impression 71M with perforated diverticulitis s/p ex lap and Hartmanns procedure with end descending colostomy on 03/24. He has been extubated, his mentation is improving , and he has ROBF. However, he remains tachycardic and febrile despite antibiosis and no obvious source. Repeat CT on 04/03 did not demonstrate any abscess or other intra-abdominal pathology to explain his ongoing fevers. Problems: Plan - NGT ok to be removed today - Advance diet as primary team deems fit, as he may need a formal swallow study prior to starting PO intake - Continue TPN for now - ARCELIA drain to remain as it is in good position - Appreciate wound/ostomy care in regards to descending colostomy and open midline abdominal wound - Consider UA and blood cultures to determine source of fevers - Appreciate ongoing care from primary team - Please do not hesistate to page/call with questions or concerns. VTE Prophylaxis: Sub-Q Heparin (Unfractionated) Resuscitation Status: CPR: Attempt Resuscitation Gilbert Solano MD Apr 04, 2017 09:35
--- NOTE | 2017-04-04 09:58 | PROG NOTE ---
[address] [address] PROGRESS NOTE PATIENT: JOSAFAT SOLIS : 1945 MR#: [id number] ADMIT: 03/24/2017 JOB ID: [id number] DATE: 04/04/2017 INFECTIOUS DISEASE FOLLOW UP NOTE: REASON FOR FOLLOWUP: Complex intra-abdominal infectious process. INTERVAL HISTORY: Recall that this is the 71-year-old gentleman who I saw in consultation just before I left the area for vacation one week ago. At that time the patient was critically ill in the ICU recovering from a perforated diverticulitis with abscess formation status post surgery with placement of drains and colostomy after some bowel resection. At that point, one week ago, we were treating him with broad-spectrum antibiotics which included Zosyn and micafungin to cover what was obviously extensive fecal soilage of his peritoneum during his period of bowel perforation. This was all occurring in the setting of a gentleman with many underlying significant medical problems including renal cell carcinoma for which he had recently undergone a nephrectomy and was receiving pazopanib as well as underlying coronary disease, COPD and diabetes. During my absence, the patient has had a bit of a elisa course but is now somewhat improved though he remains in the CCU. He has been successfully extubated at this point, and is at times quite awake and has even been reported to be telling jokes at times, though this morning he seems a bit confused. The patient recently has had a very elevated respiratory rate with some raspy breath sounds but he this morning denies any shortness of breath or cough. He also denies fever or chills and denies abdominal pain at least at this time though earlier this morning he told other examiners he was having severe abdominal pain so that is a bit hard to follow. This morning he is oriented x2 and able to answer questions with mumbling phrases which sometimes are quite apropos, and other times, just unintelligible. Aside from the above, absence of fever, chills, and denial of respiratory or GI symptoms, there is little else in the way of history this morning. PHYSICAL EXAMINATION: Reveals a gentleman with stuttering low-grade fevers. He was 38.4 yesterday afternoon, 38 at midnight and now 36.9. His respiratory rate remains very elevated in the 30-50 range, currently right at 40 and these are very shallow respirations with audible coarse upper airway tones. Blood pressure 143/56. He is not on any vasopressor agents. Saturating 97% on 4 L. He does not appear to be in great distress though his respiratory rate is clearly very rapid but he nonetheless does not look short of breath or very uncomfortable. Examination of the eyes reveals normal extraocular movements. No conjunctivitis or scleral icterus. His oral cavity is benign. He currently has an NG tube as well as a right radial A line, a right upper extremity PICC. All of these devices appear relatively benign. His lungs are notable for very shallow respirations, coarse upper airway sounds are heard. Cardiac tones mildly tachycardic without overt murmur though it is hard to hear anything over the crackly upper airway breath sounds. His abdomen is slightly distended. Colostomy present on the left. ARCELIA drain is as in the past. Over the past week, however, he has had one of his lower abdominal wounds just below the umbilicus was reopened and packed and that area appears fairly benign today. Penis and scrotum look normal. A [place] catheter is present. Lower extremities without cellulitis or edema. Labs include white count currently 9500, platelet count 380. He has 77% polys. His creatinine today 0.78. His bilirubin 1.3. Of some concern are his LFTs. His ALT is 102, which has more than doubled over the last few days. Additionally his alk phos is rapidly increasing, now to 641. He does not have a great deal of right upper quadrant tenderness but nonetheless I have gone ahead and ordered a GGT to further evaluate that. Other labs include albumin 2.3. Stat lipase I ordered this morning is 34. His procalcitonins since admission are basically all the same. They all range between about 0.9 and 1.5. Today's is 1.27 and I would interpret these as useless and stop ordering them probably at this juncture. He has no urine white cells on his most recent UA. Blood cultures from the as well as the are negative. Some earlier blood cultures done back on the grew coag-negative staph, which was likely a contaminant. Most recent imaging includes a chest x-ray done yesterday which I reviewed on the view screen. It shows a fairly subtle left lower lobe opacity which probably represents atelectasis. There is also small left pleural effusion. Abdominal CT was also done. It shows some fluid around the surgical drain which does not enhance or look like an abscess on this contrasted study. The lung bases look better than on prior films. The gallbladder is notable for two small calcified gallstones near the gallbladder neck but no pericholecystic fluid. This CT is from yesterday. The pancreas does appear normal. IMPRESSION: This is a complex patient who has now been in the hospital going on 12 days. He was initially treated aggressively and appropriately with Zosyn to which we added micafungin now eight days ago. Despite that, he continues to have low-grade fevers and slow progress. He remains on TPN with an NG tube status post recent abdominal surgery with multiple lines which clearly leaves him at high risk for fungal infections but he is on micafungin which should be very appropriate at this point. Today's main concern from my point of view is the rapid rise in his ALT and especially his alk phos. His lipase is normal which would seem to leave his pancreas out of this picture, but I am worried about acalculous cholecystitis in this patient who is in a classic situation where that would become very likely. RECOMMENDATIONS: 1. We continue with the antibiotics which currently include meropenem and micafungin but I do not think that the meropenem, to which he was changed in the last couple days from Zosyn, offers much over the Zosyn alone. 2. Will continue with micafungin. 3. An abdominal ultrasound and/or a HIDA scan should be done today and I have expressed this idea to the team during rounds this morning. 4. We await the GGT that I ordered but I strongly suspect that will just confirm that he has an evolving cholestatic picture.
--- NOTE | 2017-04-04 10:06 | PCM.PNMED ---
Subjective Date of Service Apr 04, 2017 Subjective Humberto Saldivar is a 71 year old gentleman with a PMH of renal cell carcinoma s/ p nephrectomy with immunotherapy who presented on 03/24 with feculent peritonitis secondary to perforated diverticular abscess. He underwent emergent exploratory laparotomy, sigmoid colectomy, and descending colostomy (Diallo procedure) on the day of admission and was intubated post operatively with extubation on 03/31. Today the patient continues to improve from a neurological standpoint, he is alert and following commands. He does attempt to converse but his words are only intermittently intelligible. His continues to have gurgling breath sounds, however these have improved over the past few days. He is inconsistent as to whether he complains of pain giving different answers to different providers, but denies pain upon our evaluation. He expresses a desire to get up and moving , and to return home as soon as he is able. Overnight the patient did experience an acute rise in his Alk Phos, CT scan performed earlier in the day revealed Gallstones but no juan evidence of cholecystitis. Patient did not complain of pain with deep palpation of the RUQ. Exam Vital Signs Vital Sign - Last Date Time Temp Pulse Resp B/P Pulse Ox O2 Delivery O2 Flow Rate FiO2 04/04/17 08:00 Supplement Oxygen CPAP/BIPAP 04/04/17 08:00 37.6 115 36 148/61 96 4.00 04/02/17 04:41 40 Intake and Output 04/03/17 04/03/17 04/04/17 Cumulative From/Thru 15:00 23:00 07:00 03/24/17 14:24 - 04/04/17 05:14 Intake Total 250 ml 1292 ml 1488 ml 76484 ml Output Total 1515 ml 1495 ml 1205 ml 09049 ml Balance -1265 ml -203 ml 283 ml 1540 ml Intake Oral 0 ml IV Total 250 ml 287 ml 262 ml 70158 ml Tube Feeding 40 ml TPN/PPN 1005 ml 1226 ml 9081 ml Tube Irrigant 120 ml Output Urine Total 1000 ml 500 ml 800 ml 59742 ml Stool Total 250 ml 375 ml 640 ml Gastric Drainage Total 250 ml 600 ml 400 ml 4060 ml Drainage Total 15 ml 20 ml 5 ml 1173 ml Estimated Blood Loss 120 ml # Bowel Movements 1 1 Exam Gen: Alert but not oriented elderly gentleman on Nasal cannula, follows commands , makes attempts at conversation but is largely unintelligible Neck: Supple, R IJ in place and appears patent, no JVD HEENT: PERRL, EOMI, no scleral icterus, no conjunctival pallor CV: Regular rhythm with tachycardia, no murmurs rubs or gallops Resp: Wet gurgling breath sounds with coarse rhonchi that minimally clear with cough, improved since prior exam Abd: slightly firm, distant bowel sounds, Ostomy with light brown liquid stool, midline incision open inferior to the umbilicus extending down to the pubis dresses without signs of purulence or erythema Extr: Mild BL LE pitting edema, no cyanosis or clubbing Neuro: CN 2-12 grossly intact, no focal neurologic deficit Psych: Patient making attempts to communicate, but is still largely non- sensical with verbiage IVs and Medications Medications Reviewed: Medications were reviewed in detail Lab and Diagnostics Item Value Date Time Red Blood Count 2.82 mil/mm3 L 04/04/17 0500 Mean Corpuscular Volume 96.1 fL 04/04/17 0500 Mean Corpuscular Hemoglobin 30.9 pg 04/04/17 0500 Mean Corpuscular Hemoglobin Concent 32.1 % 04/04/17 0500 Red Cell Distribution Width 18.4 % H 04/04/17 0500 Estimat Glomerular Filtration Rate 105 mL/min 04/04/17 0500 Calcium Level 8.5 mg/dL 04/04/17 0500 Phosphorus Level 2.5 mg/dL 04/04/17 0500 Magnesium Level 2.2 mg/dL 04/04/17 0500 Total Bilirubin 1.3 mg/dL H 04/04/17 0500 Aspartate Amino Transf (AST/SGOT) 88 U/L H 04/04/17 0500 Alanine Aminotransferase (ALT/SGPT) 102 U/L H 04/04/17 0500 Alkaline Phosphatase 641 U/L H 04/04/17 0500 Total Protein 5.4 g/dL L 04/04/17 0500 Albumin 2.3 g/dL L 04/04/17 0500 Procalcitonin 1.27 ng/mL H 04/04/17 0500 Lipase 34 U/L 04/04/17 0500 Result Diagram: 04/04/17 0500 04/04/17 0500 Microbiology Blood culture 2/3 bottles positive for Gram + cocci X-Rays, CTs and MRIs (03/24/17) X-RAY CHEST ONE VIEW, PORTABLE IMPRESSION: No acute pulmonary process. Dictated and approved by: Windy Larsen M.D. on 03/24/2017 at 14:05 (03/24/17) CT ANGIO CHEST PULMONARY EMBOLISM IMPRESSION: 1. No acute pulmonary embolus. 2. 4 mm groundglass nodule. No prior comparisons are available. Please see followup guidelines below. 3. Please see detailed description of abdominal findings on the associated CT of the abdomen from the same date. ADDENDUM: Fleischner Society criteria for SOLID lung nodule followup. Nodule size (mm)Low-risk patientHigh-risk [id number] follow-up neededFollow-up at 12 mo; if no change, no further follow-up>[id number] CT at 12 mo; if no change, no further follow-up needed.Initial follow-up CT at 6-12 mo, then 18-24 mo if no change. >6-8Initial follow-up CT at 6-12 mo, then 18-24 mo if no change. Initial follow-up CT at 3-6 mo, then 9-12 mo and 24 mo if no change. > 8Follow-up CT at 3, 9, 24 mo. Or PET and/or biopsy.Same as for low-risk pts. Fleischner Society criteria for SUB-SOLID lung nodule followup. Solitary pure ground-glass nodules5 mm or lessNo followup needed. >5 mm3 mo follow-up CT to confirm persistence. Then annual CT for 3 years. Part-solid nodules3 mo follow-up CT to confirm persistence. If persistent with solid component <5 mm, annual CT for at least 3 years. If solid component is 5 mm or more, biopsy or surgical resection. Consider PET-CT for lesions > 10 mm. Multiple sub-solid nodulesPure ground glass nodules [address] at 2 and 4 years. Pure ground glass nodules >5 mm without dominant lesion. [address] to confirm persistence, then annual followup CT for at least 3 years. Dominant nodule(s) with part-solid or solid component. [address] to confirm persistence. If persistent, consider biopsy or surgical resection, carlito if lesions have >5 mm solid component. Dictated and approved by: Vanessa Torres M.D. on 03/24/2017 at 16:23 (03/24/17) CT ABDOMEN AND PELVIS WITH CONTRAST IMPRESSION: 1. Perforated acute diverticulitis with intra-abdominal abscess as above. Given the location posterior to the sigmoid colon and the bladder, this is likely not amenable to percutaneous drainage. Surgical consultation recommended. 2. Multiple foci of pneumoperitoneum. It is unclear whether there is a solitary perforated region of the sigmoid colon in the region of the abscess or if there may be a second bowel perforation more proximally in the left lower quadrant.These findings were discussed with Dr. Moreno at 4:27 PM on 03/24/17. 3. 1.0 cm diameter cystic lesion within the body of the pancreas. This is new when compared with the prior study dated 09/16/16. Differential considerations include both neoplastic and nonneoplastic cystic lesions. 4. Cholelithiasis. No acute cholecystitis. 5. Severe wedge compression deformity at L1 likely pathologic in nature given the expansile lytic lesion in this vertebral body on the study dated 09/16/16. Dictated and approved by: Vanessa Torres M.D. on 03/24/2017 at 16:24 X-RAY CHEST ONE VIEW, PORTABLE IMPRESSION: New ET tube, enteric tube, and left-sided IJ CVC in expected positions. New left pleural effusion with left basilar atelectasis. Dictated by: Bang Chung M.D. on 03/25/2017 at 7:54 Approved by: Bang Chung M.D. on 03/25/2017 at 7:56 X-RAY CHEST ONE VIEW, PORTABLE IMPRESSION: Decreased lung volumes, with patchy left midlung atelectasis. Dictated by: Darius Molina M.D. on 03/26/2017 at 8:30 Approved by: Darius Molina M.D. on 03/26/2017 at 8:33 CT ABDOMEN AND PELVIS WITH CONTRAST IMPRESSION: 1. Stable low density fluid collection around the surgical drain when compared with the study dated 03/30/17. No definite rim enhancement to suggest organizing abscess. 2. Decreased pleural effusions and consolidation at the lung bases are with the prior study. Dictated by: Vanessa Torres M.D. on 04/03/2017 at 15:29 . Additional Diagnostics Arterial Blood Gas DateTimeAnalyzed 07:18:35 -_ pH ____7.563 - 7.350 7.450 pCO2 ___28.1__ -mmHg 35.0 45.0 pO2 157 -mmHg 69.0 116 HCO3- ___25.3__ -mmol/L 22.0 26.0 ABE ____2.9__ -mmol/L -2.0 2.0 tHb ____9.8__ -g/dL 12.0 18.0 . Assessment & Plan 71 year old gentleman with a history of CAD with 2 stents, COPD, hyperlipidemia , and right-sided renal cell carcinoma (s/p nephrectomy in October 2016) currently treated with Pazopanib presenting to the CCU hypotensive and intubated status post sigmoid colectomy with descending colostomy for perforated diverticulitis and feculent peritonitis. Perforated diverticulitis with intra-abdominal abscess. S/P sigmoid colectomy and descending colostomy, active -No longer on sedation -Ostomy output appropriate -[place] and ARCELIA drain should remain for now. -Continue IV Zosyn and Micafungin -CT abdomen completed 03/30 shows bilateral pleural effusions with atelectasis, no bowel obstruction, diverticulosis, cystic pancreatic mass (decreased), and pneumoperitoneum (likely postoperative), -repeat CT on 04/03 revealed little change: small gallstones without evident of cholecystitis -ID consulted and we appreciate their input Acute Hypoxic Respiratory Failure due to surgery and COPD, chronic. Present on admission. stable. -Pt intubated and sedated in the CCU. Extubated on 03/31 -Patient requiring frequent suctioning to keep the airway clear -Patient currently tolerating 4 L nasal cannula Coronary artery disease, chronic. Present on admission. stable. -Pt with prior OH and two stents. Presented with mild chest pain with negative cardiac enzymes and no acute ischemic changes noted on ECG. -Continue home simvastatin and aspirin when able -Continuous cardiac monitoring. Elevated Alk Phos, POA, acute. Active -Patient has had high normal Alk Phos since admission -On 04/03 patient experienced an acute rise of his Alk Phos, which then herman to 641 the following day -CT on 04/03 shows -Will conduct HIDA scan Renal cell carcinoma of right kidney, chronic. Presumed stable. -Pt is s/p nephrectomy in October 2016, currently treated with Pazopanib and dexamethasone. -CT abd/pelvis showed a renal cyst as above. -Resume oral medications when able Diabetes mellitus, type 2, chronic. Present on admission. Presumed stable. -Current outpatient therapy is Metformin 500mg PO BID -Hold Metformin -Continue tight glucose control. Per recommendations of general surgery if > 180 use insulin drip. Hypotension, acute. Resolved -Vital signs currently stable -TPN started on 03/27 Continue TPN Hypertension, chronic. Present on admission. Stable -Blood pressures remain stable -Held home antihypertensives: Lisinopril 40mg PO daily, Metoprolol succinate 50mg PO daily - IV metoprolol 2.5 mg every 4 Hyperlipidemia, chronic. Present on admission. Presumed stable. -Continue home dose statin (Simvastatin 20mg PO HS) when able Pain Evaluation: Adequate Pain Control GI Prophylaxis: H2 saw VTE Prophylaxis: Sub-Q Heparin (Unfractionated) VTE Mechanical Devices: Intermittant Pneumatic CD Resuscitation Status: CPR: Attempt Resuscitation Radhames Perdomo DO Apr 04, 2017 10:06
--- NOTE | 2017-04-04 10:39 | NUR ---
[facility] consult received. Per chart and RN, pt continues to be tachypneic with weak cough. Pt is not appropriate for G[employer]IST[employer]IST evaluation at this time. Discussed with RN. G[employer] REGISTRATION SPECIALIST will follow and evaluate when pt is appropriate.
--- NOTE | 2017-04-04 10:49 | ABG ---
DateTimeAnalyzed 10:42:00 -_ pH ____7.473 - 7.350 7.450 pCO2 ___28.7__ -mmHg 35.0 45.0 pO2 ___99.5__ -mmHg 69.0 116 HCO3- ___20.8__ -mmol/L 22.0 26.0 ABE ___-1.9__ -mmol/L -2.0 2.0 tHb ____8.0__ -g/dL 12.0 18.0 O2Hb ___95.9__ -% COHb ____1.3__ -% 0.0 1.5 MetHb ____0.6__ -% 0.4 1.5 sO2 ___97.8__ -% 25.0 FIO2 ___36.0__ -% Drawn By jmw - Date/Time Notified____ 10:48:00 -_ Spontaneous_RR ___32.0__ -b/min Liter_Flow ____4.0__ -L/min Oxygen Device 1 __CANNULA - Notified By jmw - Notified Whom _DR FIELD - B 757 -mmHg tO2 ___11.0__ -Vol% Lion test N/A -
--- NOTE | 2017-04-04 10:58 | NUR ---
NUTRITION FOLLOW UP: ASSESS: 71 YO M admitted to CCU with perforated diverticulitis, pneumoperitoneum with peritonitis, s/p exploratory laparotomy with sigmoid/descending colon resection, Diallo's and end-descending colostomy. Pt extubated 03/31. He continues on TPN. Due to current mental status, he has not been able to be assessed by ST yet. Lipids to be added back in to TPN today and to cycle three days a week. Pharmacy is aware. Pt's Alk phos is elevated today. Per MD CT showed gallstones. Plan for HIDA scan today. Will monitor lab trends as this may be TPN related. NGT to be removed today, per surgery. PMHx: Renal cell cancer with current chemotherapy, immunosuppression, R. nephrectomy, CAD, COPD, HTN, dyslipidemia, type 2 diabetes, hiatal hernia, GI bleed. DIET: NPO. CURRENT TPN: Dex 290 g, AA 145 g, no lipids, providing 1566 kcal, 145 g protein, meeting approx. 81% kcal, 100% protein needs. LABS: Reviewed. Bun 41, Glu 143, T.bili 1.3, AST 88, ALT 102, Alk phos 641, Alb 2.3 MEDICATIONS: Reviewed. Lopressor, lasix, albumin. GI: Stool via colostomy- 625ml output 04/03 SKIN: Per Trim Attacher, there is no skin breakdown or erythremic areas noted. ANTHROPOMETRICS: Current Wt: 89.9 kg, BMI: 26.1 kg/m2. Admit wt 88kg, IBW: 83.64 kg ESTIMATED NEEDS: Healing, GI Calories: 2200-2700kcal/day (25-30kcal/kg) Protein: 105-135kcal/day (1.2-1.5g/kg) Fluid: Approx. 2700 mL (30 mL/kg BW) NUTRITION DIAGNOSIS: 1) Inadequate oral intake related to altered GI function, as evidenced by colectomy/colostomy, NPO status - PERSISTS. INTERVENTION: 1) Recommend addition of lipids to TPN as pt has been without lipids for multiple days. Recommend TPN of 300g Dex, 135g AA and 25g lipids to provide 1810kcal and 135g pro ( ~75% kcal and 100% pro needs). 2) Due to elevated alk phos, lipids to be cycled three days a week. Pharmacy is aware 3) Will monitor lab trends. Recommend eventual goal TPN of 395g Dex, 135g AA and 35g lipids to provide 2233kcal and 135g pro (100% estimated needs). 4) Advance diet per ST when appropriate. MONITOR/EVALUATE: NPO status, labs, TPN tolerance/advance, GI/nutrition status. Follow per high nutrition risk guidelines.
[2017-04-04 12:00] VITALS: BP 139/63; PULSE 102; RESP 34; O2SAT 96
--- NOTE | 2017-04-04 12:20 | NUR ---
Inpatient Wound and Ostomy Nurse Patient seen for wound care and ostomy wafer change. Peristomal skin intact and healthy, without evidence of yeast or infection. Skin margins are minimally erythemic and sutures noted. Stoma is retracted to subcu level, black in areas, with stringy, well-adhered slough. Peanut butter consistency stool is brown and odorous. Os is centered. Skin was cleansed and dried well. An Amanda ring was opened to stoma size and shape and placed, then a convex moldable wafer placed over Amanda with clear pouch. Abdominal wound dressing has leaked, removed packing without odor, noted full of serosanguinous drainage. Beefy red wound tissue, granulating, without signs of infection. Wound was cleansed with NS, blotted dry, then packed with Aquacel Extra Ag, and covered with bordered sacral dressing. This secondary dressing may be changed PRN. ARCELIA insertion site was cleansed and T sponge placed, then Mepilex foam dressing placed over T sponge to hold in place. Patient was minimally interactive throughout care, did not shows signs of pain except for pressure required to attach ostomy pouch to wafer. CWON will see patient daily.
[2017-04-04 16:00] VITALS: BP 149/84; PULSE 94; RESP 37; O2SAT 97
--- NOTE | 2017-04-04 16:12 | NUR ---
Social Work: Continued Discharge Planning/Multidisciplinary Rounds D: Pt discussed in multidisciplinary rounds; pt remains in CCU status. No anticipated time frame for discharge provided at this time due to the patient's clinical status. Per attending provider, pt will most likely require skilled rehab at time of discharge. He will place an order for [facility] to place referrals to the family's preferences. At this time there are no orders placed. [facility] [facility] will continue to follow and will refer once ordered. Pt's 's preference is for [facility] PASSR in folder PPW in chart A: Pt who will likely require skilled rehab at time of discharge based on providers information and the length of pt's stay P: Evolving; [facility] [facility] to provide referrals to the family's SNF preferences once CM order is received. [facility]CH[employer] to continue to follow to coordinate d/c planning [facility]
--- NOTE | 2017-04-04 16:13 | DRSVH ---
PROCEDURE: US ABDOMEN, LIMITED ([id number]) INDICATIONS: rule out cholecystitis TECHNIQUE: Real-time focused scanning was performed of the abdomen, with image documentation. COMPARISON: [facility], CT, CT ABD PELVIS W CON, 04/03/2017, 13:43. FINDINGS: 2 mobile gallstones are present in the gallbladder wall is focally thickened measuring up t o 4.2 mm. Small amount of sludge within the gallbladder neck. No biliary dilatation. Grossly frank l appearance of the liver. IMPRESSION: Cholelithiasis with prominent gallbladder wall measuring 4.2 mm. Developing cholecystiti s cannot be excluded and clinical correlation is recommended. Dictated by: Abiodun ROCHA Interpreted: Ace Sesay MD on 04/04/2017 at 15:55 Approved by: Ace Sesay M.D. on 04/04/2017 at 16:11
--- NOTE | 2017-04-04 17:15 | PCM.PNMED ---
Subjective Date of Service Apr 04, 2017 Subjective Subjective: Patient is awake alert, and responding to verbal stimuli. He is answering questions and able to follow commands. Events Overnight: No acute events overnight. ROS: Denies fever/chills, nausea/vomiting, headache, weakness, abdominal pain, chest pain, shortness of breath, increased swelling in hands or feet. Exam Vital Signs Vital Sign - Last Date Time Temp Pulse Resp B/P Pulse Ox O2 Delivery O2 Flow Rate FiO2 04/04/17 16:00 37.7 94 37 149/84 97 Nasal Cannula 2.00 04/02/17 04:41 40 Intake and Output 04/03/17 04/03/17 04/04/17 Cumulative From/Thru 15:00 23:00 07:00 03/24/17 14:24 - 04/04/17 05:14 Intake Total 250 ml 1292 ml 1488 ml 95075 ml Output Total 1515 ml 1495 ml 1205 ml 57836 ml Balance -1265 ml -203 ml 283 ml 1540 ml Intake Oral 0 ml IV Total 250 ml 287 ml 262 ml 01441 ml Tube Feeding 40 ml TPN/PPN 1005 ml 1226 ml 9081 ml Tube Irrigant 120 ml Output Urine Total 1000 ml 500 ml 800 ml 56923 ml Stool Total 250 ml 375 ml 640 ml Gastric Drainage Total 250 ml 600 ml 400 ml 4060 ml Drainage Total 15 ml 20 ml 5 ml 1173 ml Estimated Blood Loss 120 ml # Bowel Movements 1 1 Exam General: Extubated, breathing under own power, on oxygen nasal cannula, responsive to verbal stimulation HEENT: Normocephalic, atraumatic. External ears without defect. Pupils equal, round, and reactive to light and accommodation. Anicteric sclerae, moist conjunctivae. IJ removed Cardiovascular: Regular rate and rhythm with no murmurs, rubs, or gallops appreciated Pulmonary: Patient is currently on breathing under his own power, very coarse breath sounds with loud rhonchi, no rales, no wheezes Abdomen: Bowel tones present. Soft, slightly distended, non-tender, ostomy putting out brown fluid. Well-healing incision with the superior portion closed with radha, the inferior portion draining appropriately. ARCELIA drain in place minor output. Extremities: No clubbing, cyanosis, edema, decreased color and warmth of the left leg compared to right. Pulses intact. Skin: Normal temperature, turgor, and texture; no rash, ulcers, or subcutaneous nodules appreciated. Neurological: Cranial nerves grossly intact. Patient appears to have normal movement of arms and legs Psychiatric: Patient appears upbeat, normal mood and affect. Speech is at times garbled and difficult to understand, however he appears to be responding appropriately to questions IVs and Medications IV Fluids 200 mL normal saline delivered with IV medications. Medications Reviewed: Medications were reviewed in detail Lab and Diagnostics Result Diagram: 04/04/17 0500 04/04/17 0500 Microbiology Blood culture 2/3 bottles positive for Gram + cocci X-Rays, CTs and MRIs (03/24/17) X-RAY CHEST ONE VIEW, PORTABLE IMPRESSION: No acute pulmonary process. Dictated and approved by: Windy Larsen M.D. on 03/24/2017 at 14:05 (03/24/17) CT ANGIO CHEST PULMONARY EMBOLISM IMPRESSION: 1. No acute pulmonary embolus. 2. 4 mm groundglass nodule. No prior comparisons are available. Please see followup guidelines below. 3. Please see detailed description of abdominal findings on the associated CT of the abdomen from the same date. ADDENDUM: Fleischner Society criteria for SOLID lung nodule followup. Nodule size (mm)Low-risk patientHigh-risk [id number] follow-up neededFollow-up at 12 mo; if no change, no further follow-up>[id number] CT at 12 mo; if no change, no further follow-up needed.Initial follow-up CT at 6-12 mo, then 18-24 mo if no change. >6-8Initial follow-up CT at 6-12 mo, then 18-24 mo if no change. Initial follow-up CT at 3-6 mo, then 9-12 mo and 24 mo if no change. > 8Follow-up CT at 3, 9, 24 mo. Or PET and/or biopsy.Same as for low-risk pts. Fleischner Society criteria for SUB-SOLID lung nodule followup. Solitary pure ground-glass nodules5 mm or lessNo followup needed. >5 mm3 mo follow-up CT to confirm persistence. Then annual CT for 3 years. Part-solid nodules3 mo follow-up CT to confirm persistence. If persistent with solid component <5 mm, annual CT for at least 3 years. If solid component is 5 mm or more, biopsy or surgical resection. Consider PET-CT for lesions > 10 mm. Multiple sub-solid nodulesPure ground glass nodules [address] at 2 and 4 years. Pure ground glass nodules >5 mm without dominant lesion. [address] to confirm persistence, then annual followup CT for at least 3 years. Dominant nodule(s) with part-solid or solid component. [address] to confirm persistence. If persistent, consider biopsy or surgical resection, carlito if lesions have >5 mm solid component. Dictated and approved by: Vanessa Torres M.D. on 03/24/2017 at 16:23 (03/24/17) CT ABDOMEN AND PELVIS WITH CONTRAST IMPRESSION: 1. Perforated acute diverticulitis with intra-abdominal abscess as above. Given the location posterior to the sigmoid colon and the bladder, this is likely not amenable to percutaneous drainage. Surgical consultation recommended. 2. Multiple foci of pneumoperitoneum. It is unclear whether there is a solitary perforated region of the sigmoid colon in the region of the abscess or if there may be a second bowel perforation more proximally in the left lower quadrant.These findings were discussed with Dr. Moreno at 4:27 PM on 03/24/17. 3. 1.0 cm diameter cystic lesion within the body of the pancreas. This is new when compared with the prior study dated 09/16/16. Differential considerations include both neoplastic and nonneoplastic cystic lesions. 4. Cholelithiasis. No acute cholecystitis. 5. Severe wedge compression deformity at L1 likely pathologic in nature given the expansile lytic lesion in this vertebral body on the study dated 09/16/16. Dictated and approved by: Vanessa Torres M.D. on 03/24/2017 at 16:24 X-RAY CHEST ONE VIEW, PORTABLE IMPRESSION: New ET tube, enteric tube, and left-sided IJ CVC in expected positions. New left pleural effusion with left basilar atelectasis. Dictated by: Bang Chung M.D. on 03/25/2017 at 7:54 Approved by: Bang Chung M.D. on 03/25/2017 at 7:56 X-RAY CHEST ONE VIEW, PORTABLE IMPRESSION: Decreased lung volumes, with patchy left midlung atelectasis. Dictated by: Darius Molina M.D. on 03/26/2017 at 8:30 Approved by: Darius Molina M.D. on 03/26/2017 at 8:33 CT ABDOMEN AND PELVIS WITH CONTRAST IMPRESSION: 1. Stable low density fluid collection around the surgical drain when compared with the study dated 03/30/17. No definite rim enhancement to suggest organizing abscess. 2. Decreased pleural effusions and consolidation at the lung bases are with the prior study. Dictated by: Vanessa Torres M.D. on 04/03/2017 at 15:29 . Additional Diagnostics Arterial Blood Gas DateTimeAnalyzed 07:18:35 -_ pH ____7.563 - 7.350 7.450 pCO2 ___28.1__ -mmHg 35.0 45.0 pO2 157 -mmHg 69.0 116 HCO3- ___25.3__ -mmol/L 22.0 26.0 ABE ____2.9__ -mmol/L -2.0 2.0 tHb ____9.8__ -g/dL 12.0 18.0 US ABDOMEN, LIMITED IMPRESSION: Cholelithiasis with prominent gallbladder wall measuring 4.2 mm. Developing cholecystitis cannot be excluded and clinical correlation is recommended. Dictated by: Abiodun Crockett [facility] Interpreted: Ace Sesay MD on 04/04/2017 at 15:55 Approved by: Ace Sesay M.D. on 04/04/2017 at 16:11 . Assessment & Plan 71 year old gentleman with a history of CAD with 2 stents, COPD, hyperlipidemia , and right-sided renal cell carcinoma (s/p nephrectomy in October 2016) currently treated with Pazopanib presenting to the CCU hypotensive and was initially intubated status post sigmoid colectomy with descending colostomy for perforated diverticulitis. Perforated diverticulitis with intra-abdominal abscess. S/P sigmoid colectomy and descending colostomy, active -No longer on sedation -Ostomy output appropriate -[place] and ARCELIA drain should remain for now. -IV meropenem and Micafungin -Repeat CT abdomen 04/03 shows resolving pleural effusions, mild abdominal fluid with no evidence of abscess. Acute Hypoxic Respiratory Failure due to surgery and COPD, chronic. Present on admission. stable. -Pt intubated and sedated in the CCU. Extubated on 03/31 -Patient currently tolerating 2 L nasal cannula Elevated Alk Phos, POA, acute. Active -Patient has had high normal Alk Phos since admission -On 04/03 patient experienced an acute rise of his Alk Phos, which then herman to 641 the following day -HIDA scan not conducted due to the fact that the patient has not eaten in the last 24 hours. -Ultrasound of the abdomen shows a prominent gallbladder (4.2 mm) Developing cholecystitis cannot be excluded. -GGT ordered, pending Coronary artery disease, chronic. Present on admission. stable. -Pt with prior LA and two stents. Presented with mild chest pain with negative cardiac enzymes and no acute ischemic changes noted on ECG. -Continue home simvastatin and aspirin when able -Continuous cardiac monitoring. Renal cell carcinoma of right kidney, chronic. Presumed stable. -Pt is s/p nephrectomy in October 2016, currently treated with Pazopanib and dexamethasone. -CT abd/pelvis showed a renal cyst as above. -Resume oral medications when able Diabetes mellitus, type 2, chronic. Present on admission. Presumed stable. -Current outpatient therapy is Metformin 500mg PO BID -Hold Metformin -Continue tight glucose control. Per recommendations of general surgery if > 180 use insulin drip. Hypotension, acute. Resolved -Vital signs currently stable -TPN started on 03/27 Continue TPN Hypertension, chronic. Present on admission. Stable -Blood pressures remain stable -Held home antihypertensives: Lisinopril 40mg PO daily, Metoprolol succinate 50mg PO daily - IV metoprolol 2.5 mg every 4 Hyperlipidemia, chronic. Present on admission. Presumed stable. -Continue home dose statin (Simvastatin 20mg PO HS) when able GI Prophylaxis: H2 saw VTE Prophylaxis: Sub-Q Heparin (Unfractionated) VTE Mechanical Devices: Intermittant Pneumatic CD Resuscitation Status: CPR: Attempt Resuscitation Time spent 35 minutes Attending Statement I have seen and evaluated patient at bedside in addition to directly supervising care provided by resident physician Dr Suggs on 04/04/2017. I agree with above documentation. Mode Suggs DO Apr 04, 2017 17:15 Jose Deal DO Apr 05, 2017 07:51
--- NOTE | 2017-04-04 17:24 | PCM.PNMED ---
Subjective Date of Service Apr 04, 2017 Subjective 71-year-old man who has been on oral chemotherapy after recent right nephrectomy for renal cell carcinoma brought in by EMS after a syncopal episode at home following 3 days of anorexia, chills, and back pain. He was hypotensive in the ED and a CT scan of the abdomen and pelvis showed evidence of perforated sigmoid diverticulitis with a 4.7 cm abscess and free air in the abdomen. After discussion of risks and benefits, he agreed to proceed with exploratory laparotomy, Breen's procedure. POD #11 Up in chair this afternoon. Appears comfortable. Very weak. Failed swallow eval earlier today so remains on TPN. Exam Vital Signs Vital Sign - Last Date Time Temp Pulse Resp B/P Pulse Ox O2 Delivery O2 Flow Rate FiO2 04/04/17 16:00 37.7 94 37 149/84 97 Nasal Cannula 2.00 04/02/17 04:41 40 Intake and Output 04/03/17 04/03/17 04/04/17 Cumulative From/Thru 15:00 23:00 07:00 03/24/17 14:24 - 04/04/17 05:14 Intake Total 250 ml 1292 ml 1488 ml 03194 ml Output Total 1515 ml 1495 ml 1205 ml 95743 ml Balance -1265 ml -203 ml 283 ml 1540 ml Intake Oral 0 ml IV Total 250 ml 287 ml 262 ml 28938 ml Tube Feeding 40 ml TPN/PPN 1005 ml 1226 ml 9081 ml Tube Irrigant 120 ml Output Urine Total 1000 ml 500 ml 800 ml 90041 ml Stool Total 250 ml 375 ml 640 ml Gastric Drainage Total 250 ml 600 ml 400 ml 4060 ml Drainage Total 15 ml 20 ml 5 ml 1173 ml Estimated Blood Loss 120 ml # Bowel Movements 1 1 Exam Frail appearing man in NAD, appears much older than stated age. Lungs Decreased BS diffusely with scattered fine crackles. NO wheezes CV Distant HTs, no m/g/r ABD ARCELIA RLQ with thin serous drainage. Lt sided stoma with dark thin output, Slightly tender to pressure, Normal BTs Lab and Diagnostics Result Diagram: 04/04/17 0500 04/04/17 0500 Microbiology Blood culture 2/3 bottles positive for Gram + cocci X-Rays, CTs and MRIs (03/24/17) X-RAY CHEST ONE VIEW, PORTABLE IMPRESSION: No acute pulmonary process. Dictated and approved by: Windy Larsen M.D. on 03/24/2017 at 14:05 (03/24/17) CT ANGIO CHEST PULMONARY EMBOLISM IMPRESSION: 1. No acute pulmonary embolus. 2. 4 mm groundglass nodule. No prior comparisons are available. Please see followup guidelines below. 3. Please see detailed description of abdominal findings on the associated CT of the abdomen from the same date. ADDENDUM: Fleischner Society criteria for SOLID lung nodule followup. Nodule size (mm)Low-risk patientHigh-risk [id number] follow-up neededFollow-up at 12 mo; if no change, no further follow-up>[id number] CT at 12 mo; if no change, no further follow-up needed.Initial follow-up CT at 6-12 mo, then 18-24 mo if no change. >6-8Initial follow-up CT at 6-12 mo, then 18-24 mo if no change. Initial follow-up CT at 3-6 mo, then 9-12 mo and 24 mo if no change. > 8Follow-up CT at 3, 9, 24 mo. Or PET and/or biopsy.Same as for low-risk pts. Fleischner Society criteria for SUB-SOLID lung nodule followup. Solitary pure ground-glass nodules5 mm or lessNo followup needed. >5 mm3 mo follow-up CT to confirm persistence. Then annual CT for 3 years. Part-solid nodules3 mo follow-up CT to confirm persistence. If persistent with solid component <5 mm, annual CT for at least 3 years. If solid component is 5 mm or more, biopsy or surgical resection. Consider PET-CT for lesions > 10 mm. Multiple sub-solid nodulesPure ground glass nodules [address] at 2 and 4 years. Pure ground glass nodules >5 mm without dominant lesion. [address] to confirm persistence, then annual followup CT for at least 3 years. Dominant nodule(s) with part-solid or solid component. [address] to confirm persistence. If persistent, consider biopsy or surgical resection, carlito if lesions have >5 mm solid component. Dictated and approved by: Vanessa Torres M.D. on 03/24/2017 at 16:23 (03/24/17) CT ABDOMEN AND PELVIS WITH CONTRAST IMPRESSION: 1. Perforated acute diverticulitis with intra-abdominal abscess as above. Given the location posterior to the sigmoid colon and the bladder, this is likely not amenable to percutaneous drainage. Surgical consultation recommended. 2. Multiple foci of pneumoperitoneum. It is unclear whether there is a solitary perforated region of the sigmoid colon in the region of the abscess or if there may be a second bowel perforation more proximally in the left lower quadrant.These findings were discussed with Dr. Moreno at 4:27 PM on 03/24/17. 3. 1.0 cm diameter cystic lesion within the body of the pancreas. This is new when compared with the prior study dated 09/16/16. Differential considerations include both neoplastic and nonneoplastic cystic lesions. 4. Cholelithiasis. No acute cholecystitis. 5. Severe wedge compression deformity at L1 likely pathologic in nature given the expansile lytic lesion in this vertebral body on the study dated 09/16/16. Dictated and approved by: Vanessa Torres M.D. on 03/24/2017 at 16:24 X-RAY CHEST ONE VIEW, PORTABLE IMPRESSION: New ET tube, enteric tube, and left-sided IJ CVC in expected positions. New left pleural effusion with left basilar atelectasis. Dictated by: Bang Chung M.D. on 03/25/2017 at 7:54 Approved by: Bang Chung M.D. on 03/25/2017 at 7:56 X-RAY CHEST ONE VIEW, PORTABLE IMPRESSION: Decreased lung volumes, with patchy left midlung atelectasis. Dictated by: Darius Molina M.D. on 03/26/2017 at 8:30 Approved by: Darius Molina M.D. on 03/26/2017 at 8:33 CT ABDOMEN AND PELVIS WITH CONTRAST IMPRESSION: 1. Stable low density fluid collection around the surgical drain when compared with the study dated 03/30/17. No definite rim enhancement to suggest organizing abscess. 2. Decreased pleural effusions and consolidation at the lung bases are with the prior study. Dictated by: Vanessa Torres M.D. on 04/03/2017 at 15:29 . Additional Diagnostics Arterial Blood Gas DateTimeAnalyzed 07:18:35 -_ pH ____7.563 - 7.350 7.450 pCO2 ___28.1__ -mmHg 35.0 45.0 pO2 157 -mmHg 69.0 116 HCO3- ___25.3__ -mmol/L 22.0 26.0 ABE ____2.9__ -mmol/L -2.0 2.0 tHb ____9.8__ -g/dL 12.0 18.0 . Assessment & Plan 71 yo man with h/o CAD, DM, COPD, and RCC s/p nephrectomy this year on oral chemo admitted with perforated sigmoid diverticula. IMP Perforated sigmoid colon S/P end colostomy, sigmoid resection and Diallo's pouch. Appears to be doing well although one area of incision is open and granulating in. The remaining ARCELIA drain can probably be removed soon. COPD Well compensated for now, His rapid shallow respirations reflect his generalized deconditioning as much as the severity of his lung disease DM Controlled Renal cell CA Chemo on hold for now REC Mobilize, PT/OT, ST reevaluation this week VTE prophylaxis PRN bronchodilators Serial labs, CXR TPN for now Hold TK inhibitor until surgical wound healing complete GI Prophylaxis: H2 saw VTE Prophylaxis: Sub-Q Heparin (Unfractionated) VTE Mechanical Devices: Intermittant Pneumatic CD Resuscitation Status: CPR: Attempt Resuscitation Devon Gutierrez MD Apr 04, 2017 17:24
--- NOTE | 2017-04-04 17:55 | NUR ---
Activity/Ostomy/mentation Pt able to sit up in chair for short time with 2 person max assist and then using sling to get him back in bed. He did desat to 80s when up with PT, and had to turn him up to 5L NC to get him back up to low 90s. HR continued to be ST (up to 130s) but at rest, mostly in the low 100s. Pt's breath sounds wheezy and RR remained in 30s throughout shift. MD aware, blood gas done. After pt recovered from PT, able to wean pt back down to 2L NC, sats around 97%. Ostomy draining dark brown stool, sent for guaiac due to melena-smelling stool. ARCELIA drain put out less than 10ml. Pt mentation clearing up, but speech is slow and whispered, weak/ineffective cough. Using oral suction and getting thick, creamy white secertions up. Frequent rounding and oral care continues. Q2h turns continue. Family at bedside intermittently throughout shift.
[2017-04-04 19:32] VITALS: BP 147/65; PULSE 121; RESP 29; O2SAT 95
[2017-04-04] MEDS: Total Parenteral Nutrition 1 BAG IV SCH (20:58)
[2017-04-04] MEDS: TPN Per Pharmacist XX SCH (20:59)
[2017-04-05] VITALS (8 sets, daily range): BP systolic 138–150; BP diastolic 65–94; PULSE 40–113; RESP 16–40; O2SAT 94–99
[2017-04-05] MEDS: MeTOProlol 1 mg/mL 5 mL Inj IVPUSH SCH ×6 (04:50→23:15)
[2017-04-05 05:26] LABS: BASOPHILS % (AUTO) 0.3 % (0-3); EOSINOPHILS % (AUTO) 6.1 % (0-5); MONOCYTES % (AUTO) 8.5 % (4-12); Mean Corpuscular Hemoglobin 30.4 pg (27.0-35.0); Mean Corpuscular Volume 97.3 fL (81-100); NEUTROPHILS % (AUTO) 72.3 % (40-74); Platelet Count 441 bil/L (150-400)
[2017-04-05 06:02] LABS: Magnesium 1.8 mg/dL (1.6-2.6)
--- NOTE | 2017-04-05 06:17 | NUR ---
CV/Resp/GI/ Patient rested in bed and was calm this shift, dozed on and off throughout the night, mostly awake watching TV, HR 100-110's ST, Q2H IVP 2.5mg Metoprolol, BP 155/71 this AM, next dose metoprolo due at 0830, on room air this shift, sats in the mid 90's, RR 30-40/min, no signs of resp distress, alert and A&Ox2 to person and place, pleasantly confused at times, TPN infusing at 117ml/hr, 20ml brown stool from colostomy, still passing brownish mucus from rectum, approximately 2ml out ARCELIA drain, 650ml urine output, uneventful shift, no needs at this time. Addendum: 04/05/17 at 0626 by ZOLTAN ALONZO RN Amended: Links added.
[2017-04-05] MEDS ORDERED: Potassium Phos (mEq) Inj 20 MEQ in Dextrose 5% 250 ML IV ONE (07:35)
[2017-04-05] MEDS: Chlorhexidine 0.12% 15 mL Oral Solution MT SCH ×3 (08:15→16:08)
[2017-04-05] MEDS: Heparin 5,000 Unit/mL Inj SUBQ SCH ×2 (08:31→16:50)
[2017-04-05] MEDS: Micafungin Inj 100 MG in 0.9% Sodium Chloride 100 ML IV SCH (08:31)
--- NOTE | 2017-04-05 09:07 | PROG NOTE ---
[address] [address] PROGRESS NOTE PATIENT: JOSAFAT SOLIS : 1945 MR#: [id number] ADMIT: 03/24/2017 JOB ID: [id number] DATE: 04/05/2017 REASON FOR FOLLOWUP: Complex patient with intraabdominal infection and possible ongoing cholecystitis. INTERVAL HISTORY: Over the past 24 hours the patient has improved somewhat in that he is now more awake. The patient tells me this morning he has no fevers, chills. He states he feels very weak and seems to be spending a lot of time in bed. He denies significant respiratory complaint. He initially denies abdominal pain, but with palpation clearly is able to express that he has right upper quadrant pain. He is still a bit lethargic and his answers tend to drift off, but his mental status is improved over yesterday. This case discussed at the bedside with the ICU nurse caring for the patient. PHYSICAL EXAMINATION: Reveals a gentleman who is currently febrile to 38.8 and this constitutes his highest fever of his entire hospital stay. Pulse is currently 102, respiratory rate in the mid 20s. Blood pressure 141/67. He is saturating quite well on room air. As noted, his mental status has improved. He is now oriented, but still somewhat lethargic with somewhat drifting answers to questions. His eyes without scleral icterus or conjunctivitis today. His oral cavity without change though dry mucous membranes are noted. He has a PICC line in the right upper extremity which appears benign. His lungs are notable for a few scattered rales at the bases, otherwise normal. Cardiac tones irregular rate and rhythm, but tachycardic. His abdomen is notable for the ARCELIA drain, the colostomy, and the open wound below the umbilicus. Most significantly today is that he has very clear right upper quadrant pain. Recall yesterday we were worried about his gallbladder and despite a great deal of pushing could not elicit right upper quadrant tenderness. Today, he clearly has very demonstrable tenderness in that region. The penis and scrotum appear normal. [place] catheter is present. He has fading skin rash around both flanks. LABORATORIES: Include white count today 8700, platelet count 441. His creatinine 0.7, AST is 95, ALT 99, alk phos 787 and that continues to fairly rapidly climb in terms of the alk phos in particular. The GGT that I ordered yesterday came back at 519, normal is only just 65 so it is eight times normal. Procalcitonin stable at about 1, and I am not certain of the value following this as they are all about 1 since admission. Urinalysis no white cells. Blood cultures which are negative on the and . Some blood cultures from the did grow coag-negative staph, which we thought was a contaminant. IMAGING: Yesterday's abdominal ultrasound shows a prominent gallbladder wall and the radiologist opined developing cholecystitis could not be excluded. A CT scan was done two days ago on the . It showed stable low-density fluid collection around the surgical drain as well as improving lung infiltrates. The gallbladder at that time did not show thickening or abnormality, but that was on CT and it was two days ago. IMPRESSION: This patient is now spiking higher fevers despite very aggressive and broad-spectrum antibiotics, which include at this time meropenem as well as micafungin. My concerns here would be three fold. Most likely, I think the patient has cholecystitis and this will need to be addressed as he is spiking fevers through very aggressive antibiotic therapy which ordinarily would be adequate for cholecystitis and this may suggest the need for surgical or interventional radiology intervention. Other possibilities here might include a PICC line infection, which I am inclined to doubt or infection in the original surgical area given that the CT scan did show a focal low-density fluid collection in that region. RECOMMENDATIONS: 1. Blood cultures x2 have been ordered including through the PICC as well as the skin. 2. We will continue with micafungin and meropenem for the time being. 3. I have ordered a HIDA scan of the gallbladder just to facilitate this workup. 4. Reinvolvement of the surgical team to evaluate the gallbladder is likely indicated at this time and also perhaps to comment on the fluid collection seen on the CT scan. 5. Will continue to follow this complex patient with you.
[2017-04-05] MEDS ORDERED: Dextrose 10% 1,000 ML IV SCH (09:35)
[2017-04-05] MEDS: Meropenem Inj 2,000 MG in 0.9% Sodium Chloride 100 ML IV SCH ×2 (10:26→16:50)
--- NOTE | 2017-04-05 10:43 | PCM.PNSURG ---
Subjective Date of Service: Apr 05, 2017 Visit Information: Reason for Visit Perferated Diverticulitis Surgery/Surgery Date Post-Op Day # Date of Admission: Mar 24, 2017 at 17:07 Hospital Day # Subjective: No acute overnight events Tmax 37.7 in last 24 hours Patient has minimal complaints today He endorses no abdominal pain or nausea Denies feeling hungry No subjective fevers or chills Objective Vital Sign- Last 8 Hours Date Time Temp Pulse Resp B/P Pulse Ox O2 Delivery O2 Flow Rate FiO2 04/05/17 08:00 38.8 111 35 150/92 94 Room Air 04/05/17 04:45 Supplement Oxygen CPAP/BIPAP 04/05/17 04:45 36.8 102 32 141/67 95 Room Air Intake and Output- Last 8 Hour 04/05/17 Cumulative From/Thru 07:00 03/24/17 14:24 - 04/05/17 04:45 Intake Total 1444 ml 02523 ml Output Total 672 ml 85712 ml Balance 772 ml 3387 ml Intake Oral 0 ml 0 ml IV Total 229 ml 84305 ml Tube Feeding 40 ml TPN/PPN 1215 ml 93284 ml Tube Irrigant 120 ml Output Urine Total 650 ml 53730 ml Stool Total 20 ml 710 ml Gastric Drainage Total 0 ml 4260 ml Drainage Total 2 ml 1180 ml Estimated Blood Loss 120 ml # Bowel Movements 1 General: Alert, Cooperative Neck: Supple Lungs: Normal Air Movement Heart: Other (Tachycardic) Abdomen: Other (L flank erythema has resolved. Ostomy with dark stool in bag. Mildline wound clean based with some granulation tissue. RLQ drain with serosanguinous output. Abdomen is soft and nontender. Negative Florez's sign. ) Extremities: Warm, Edema Localized Result Diagram: 04/05/17 0450 04/05/17 0450 Assessment & Plan Impression 71M with perforated diverticulitis s/p ex lap and Hartmanns procedure with end descending colostomy on 03/24. He remains tachycardic and febrile, despite broad spectrum antibiosis. Additionally, his alkaline phosphatase has risen, as has has GGT, and a RUQUS demonstrated cholelithiasis and gallbladder wall thickening. However, the patient has no signs of acute cholecystitis on his CT scan from 04/03 and he is entirely nontender in the right upper quadrant. Additionally, there was no evidence of intra-abdominal abscess on his CT and the drain appears to be in good position. Problems: Plan - Currently, there does not appear to be a clear intra-abdominal source for his ongoing fevers and tachycardia - It is possible that the gallbladder wall thickening is reactive to his peritonitis, and that the elevated alk phos is a result of TPN - A HIDA scan may provide more information - Should he clinically worsen, a cholecystostomy tube may be the best course of action - Consideration to blood and urine cultures may be worthwhile - Ongoing wound care per wound/ostomy team - ARCELIA drain should remain for now - Ok to advance diet once authorized by LABORATORY SECRETARY VTE Prophylaxis: Sub-Q Heparin (Unfractionated) Resuscitation Status: CPR: Attempt Resuscitation Gilbert Solano MD Apr 05, 2017 10:43
--- NOTE | 2017-04-05 11:13 | NUR ---
Inpatient Wound Nurse Patient seen for wound care of abdominal incision. All drainage was contained within dressing today which removed easily. Aquacel Extra Ag completely saturated and removed easily. Wound is non-odorous, beefy red wound tissue, granulating, without signs of infection. Wound was cleansed with NS, blotted dry, then packed with Aquacel Extra Ag, and covered with bordered sacral dressing. This secondary dressing may be changed PRN. ARCELIA insertion site was cleansed and T sponge placed, then Mepilex foam dressing placed over T sponge to hold in place. Patient was very conversant throughout care, making multiple non-sense statements. He did not complain of pain and no signs or symptoms of pain were observed. CWON will see patient daily.
--- NOTE | 2017-04-05 11:19 | NUR ---
NUTRITION FOLLOW UP: ASSESS: 71 YO M admitted to CCU with perforated diverticulitis, pneumoperitoneum with peritonitis, s/p exploratory laparotomy with sigmoid/descending colon resection, Diallo's and end-descending colostomy. Pt extubated 03/31. He has not been able to pass a ST eval yet. ST to evaluate daily. He continues on TPN. Lipids were added back to TPN 04/04 and are to continue to cycle three times a week. Pharmacy is aware. Pt's Alk phos continue to be elevated today. Per MD CT showed gallstones. Plan for HIDA scan today as it was not able to be done 04/04. Will monitor lab trends as elevated alk phos may be TPN related or possible cholecystitis. PMHx: Renal cell cancer with current chemotherapy, immunosuppression, R. nephrectomy, CAD, COPD, HTN, dyslipidemia, type 2 diabetes, hiatal hernia, GI bleed. DIET: NPO. CURRENT TPN: Dex 300 g, AA 135 g, 25g lipids three times a week. LABS: Reviewed. K 3.4, Cl 111, Bun 36, Terrazzo Tile Maker .70, Glu 118, Ca 6.9, phos 2.0, AST 95, ALT 99, Alk phos 787, alb 1.8 MEDICATIONS: Reviewed. Lopressor, lasix, albumin. GI: Stool via colostomy- 50ml output 04/04 SKIN: Per Float Operator, there is no skin breakdown or erythremic areas noted. ANTHROPOMETRICS: Current Wt: 85.9 kg, BMI: 25.0 kg/m2. Admit wt 88kg, IBW: 83.64 kg ESTIMATED NEEDS: Healing, GI Calories: 2200-2700kcal/day (25-30kcal/kg) Protein: 105-135kcal/day (1.2-1.5g/kg) Fluid: Approx. 2700 mL (30 mL/kg BW) NUTRITION DIAGNOSIS: 1) Inadequate oral intake related to altered GI function, as evidenced by colectomy/colostomy, NPO status - PERSISTS. INTERVENTION: 1) Recommend continue TPN of 300g Dex, 135g AA and 25g lipids to provide 1810kcal and 135g pro ( ~75% kcal and 100% pro needs). 2) Due to elevated alk phos, lipids to be cycled three days a week. Pharmacy is aware 3) Will monitor lab trends. Recommend eventual goal TPN of 395g Dex, 135g AA and 35g lipids, with lipids continue to cycle three days a week to provide 2233kcal and 135g pro (100% estimated needs) 4) Advance diet per ST when appropriate. 5) Will monitor GI function/POC. If appropriate and pt continues to not pass ST eval, pt may benefit from transition over to TF rather than TPN to decrease risk of infection and promote GI function. MONITOR/EVALUATE: NPO status, labs, TPN tolerance, GI/nutrition status. Follow per high nutrition risk guidelines.
--- NOTE | 2017-04-05 11:44 | PCM.PNMED ---
Subjective Date of Service Apr 05, 2017 Subjective Pulmonary Critical care progress note, consultation requested by Dr. Joy. Humberto Saldivar is a 71 year old gentleman with a PMH of renal cell carcinoma s/ p nephrectomy with immunotherapy who presented on 03/24 with feculent peritonitis secondary to perforated diverticular abscess. He underwent emergent exploratory laparotomy, sigmoid colectomy, and descending colostomy (Diallo procedure) on the day of admission and was intubated post operatively with extubation on 03/31. Today Mr. Saldivar continues to progress from a neurologic standpoint, he is speaking in what appear to be full sentences though only about a third of the individual words and phrases are intelligible. He follows commands appropriately , and denies any pain. On deep palpation of the RUQ he does express some some degree of discomfort, this is unchanged with deep inspiration. He denies chest pain or SOB, though is quite tachypnic with shallow breaths; though this has improved since prior examination. No significant overnight events. Comprehensive ROS negative except as listed above. Exam Vital Signs Vital Sign - Last Date Time Temp Pulse Resp B/P Pulse Ox O2 Delivery O2 Flow Rate FiO2 04/05/17 11:03 112 04/05/17 10:30 Supplement Oxygen CPAP/BIPAP 04/05/17 08:00 38.8 35 150/92 94 04/05/17 00:07 04/02/17 04:41 40 Intake and Output 04/04/17 04/04/17 04/05/17 Cumulative From/Thru 15:00 23:00 07:00 03/24/17 14:24 - 04/05/17 04:45 Intake Total 2130 ml 1444 ml 13181 ml Output Total 1055 ml 672 ml 44093 ml Balance 1075 ml 772 ml 3387 ml Intake Oral 0 ml 0 ml IV Total 624 ml 229 ml 20118 ml Tube Feeding 40 ml TPN/PPN 1506 ml 1215 ml 24607 ml Tube Irrigant 120 ml Output Urine Total 800 ml 650 ml 40092 ml Stool Total 50 ml 20 ml 710 ml Gastric Drainage Total 200 ml 0 ml 4260 ml Drainage Total 5 ml 2 ml 1180 ml Estimated Blood Loss 120 ml # Bowel Movements 1 Exam Gen: Alert but not oriented elderly gentleman on Nasal cannula, follows commands , speaking in full sentences though remains only intermittently intelligible Neck: Supple, R IJ in place and appears patent, no JVD HEENT: PERRL, EOMI, no scleral icterus, no conjunctival pallor CV: Regular rhythm with tachycardia, no murmurs rubs or gallops Resp: Wet gurgling breath sounds with coarse rhonchi that minimally clear with cough, improved since prior exam, tachypnea with shallow breathing Abd: slightly firm, distant bowel sounds, Ostomy with light brown liquid stool, midline incision open inferior to the umbilicus extending down to the pubis dresses without signs of purulence or erythema Extr: Mild BL LE pitting edema, no cyanosis or clubbing Neuro: CN 2-12 grossly intact, no focal neurologic deficit Psych: Patient in good spirits, laughs appropriately with humor IVs and Medications Medications Reviewed: Medications were reviewed in detail Lab and Diagnostics Item Value Date Time Red Blood Count 2.57 mil/mm3 L 04/05/17449 Mean Corpuscular Volume 97.3 fL 04/05/17449 Mean Corpuscular Hemoglobin 30.4 pg 04/05/17449 Mean Corpuscular Hemoglobin Concent 31.2 % L 04/05/17449 Red Cell Distribution Width 18.8 % H 04/05/17449 Neutrophils (%) (Auto) 72.3 % 04/05/17449 Lymphocytes (%) (Auto) 10.6 % L 04/05/17449 Monocytes (%) (Auto) 8.5 % 04/05/17449 Eosinophils (%) (Auto) 6.1 % H 04/05/17449 Basophils (%) (Auto) 0.3 % 04/05/17449 Estimat Glomerular Filtration Rate 118 mL/min 04/05/17449 Calcium Level 6.9 mg/dL *L 04/05/17449 Phosphorus Level 2.0 mg/dL L 04/05/17449 Magnesium Level 1.8 mg/dL 04/05/17449 Total Bilirubin 0.7 mg/dL 04/05/17449 Aspartate Amino Transf (AST/SGOT) 95 U/L H 04/05/17449 Alanine Aminotransferase (ALT/SGPT) 99 U/L H 04/05/17449 Alkaline Phosphatase 787 U/L H 04/05/17449 Total Protein 4.3 g/dL L 8/23/17 0450 Albumin 1.8 g/dL L 04/05/17 0450 Triglycerides Level 217 mg/dL H 04/05/17 0450 Procalcitonin 1.04 ng/mL H 04/05/17 0450 Result Diagram: 04/05/17 0450 04/05/17 0450 Microbiology Blood culture 2/3 bottles positive for Gram + cocci X-Rays, CTs and MRIs (03/24/17) X-RAY CHEST ONE VIEW, PORTABLE IMPRESSION: No acute pulmonary process. Dictated and approved by: Windy Larsen M.D. on 03/24/2017 at 14:05 (03/24/17) CT ANGIO CHEST PULMONARY EMBOLISM IMPRESSION: 1. No acute pulmonary embolus. 2. 4 mm groundglass nodule. No prior comparisons are available. Please see followup guidelines below. 3. Please see detailed description of abdominal findings on the associated CT of the abdomen from the same date. ADDENDUM: Fleischner Society criteria for SOLID lung nodule followup. Nodule size (mm)Low-risk patientHigh-risk [id number] follow-up neededFollow-up at 12 mo; if no change, no further follow-up>[id number] CT at 12 mo; if no change, no further follow-up needed.Initial follow-up CT at 6-12 mo, then 18-24 mo if no change. >6-8Initial follow-up CT at 6-12 mo, then 18-24 mo if no change. Initial follow-up CT at 3-6 mo, then 9-12 mo and 24 mo if no change. > 8Follow-up CT at 3, 9, 24 mo. Or PET and/or biopsy.Same as for low-risk pts. Fleischner Society criteria for SUB-SOLID lung nodule followup. Solitary pure ground-glass nodules5 mm or lessNo followup needed. >5 mm3 mo follow-up CT to confirm persistence. Then annual CT for 3 years. Part-solid nodules3 mo follow-up CT to confirm persistence. If persistent with solid component <5 mm, annual CT for at least 3 years. If solid component is 5 mm or more, biopsy or surgical resection. Consider PET-CT for lesions > 10 mm. Multiple sub-solid nodulesPure ground glass nodules [address] at 2 and 4 years. Pure ground glass nodules >5 mm without dominant lesion. [address] to confirm persistence, then annual followup CT for at least 3 years. Dominant nodule(s) with part-solid or solid component. [address] to confirm persistence. If persistent, consider biopsy or surgical resection, carlito if lesions have >5 mm solid component. Dictated and approved by: Vanessa Torres M.D. on 03/24/2017 at 16:23 (03/24/17) CT ABDOMEN AND PELVIS WITH CONTRAST IMPRESSION: 1. Perforated acute diverticulitis with intra-abdominal abscess as above. Given the location posterior to the sigmoid colon and the bladder, this is likely not amenable to percutaneous drainage. Surgical consultation recommended. 2. Multiple foci of pneumoperitoneum. It is unclear whether there is a solitary perforated region of the sigmoid colon in the region of the abscess or if there may be a second bowel perforation more proximally in the left lower quadrant.These findings were discussed with Dr. Moreno at 4:27 PM on 03/24/17. 3. 1.0 cm diameter cystic lesion within the body of the pancreas. This is new when compared with the prior study dated 09/16/16. Differential considerations include both neoplastic and nonneoplastic cystic lesions. 4. Cholelithiasis. No acute cholecystitis. 5. Severe wedge compression deformity at L1 likely pathologic in nature given the expansile lytic lesion in this vertebral body on the study dated 09/16/16. Dictated and approved by: Vanessa Torres M.D. on 03/24/2017 at 16:24 X-RAY CHEST ONE VIEW, PORTABLE IMPRESSION: New ET tube, enteric tube, and left-sided IJ CVC in expected positions. New left pleural effusion with left basilar atelectasis. Dictated by: Bang Chung M.D. on 03/25/2017 at 7:54 Approved by: Bang Chung M.D. on 03/25/2017 at 7:56 X-RAY CHEST ONE VIEW, PORTABLE IMPRESSION: Decreased lung volumes, with patchy left midlung atelectasis. Dictated by: Darius Molina M.D. on 03/26/2017 at 8:30 Approved by: Darius Molina M.D. on 03/26/2017 at 8:33 CT ABDOMEN AND PELVIS WITH CONTRAST IMPRESSION: 1. Stable low density fluid collection around the surgical drain when compared with the study dated 03/30/17. No definite rim enhancement to suggest organizing abscess. 2. Decreased pleural effusions and consolidation at the lung bases are with the prior study. Dictated by: Vanessa Torres M.D. on 04/03/2017 at 15:29 . Additional Diagnostics Arterial Blood Gas DateTimeAnalyzed 07:18:35 -_ pH ____7.563 - 7.350 7.450 pCO2 ___28.1__ -mmHg 35.0 45.0 pO2 157 -mmHg 69.0 116 HCO3- ___25.3__ -mmol/L 22.0 26.0 ABE ____2.9__ -mmol/L -2.0 2.0 tHb ____9.8__ -g/dL 12.0 18.0 US ABDOMEN, LIMITED IMPRESSION: Cholelithiasis with prominent gallbladder wall measuring 4.2 mm. Developing cholecystitis cannot be excluded and clinical correlation is recommended. Dictated by: Abiodun Crockett RRA Interpreted: Ace Sesay MD on 04/04/2017 at 15:55 Approved by: Ace Sesay M.D. on 04/04/2017 at 16:11 . Assessment & Plan 71 year old gentleman with a history of CAD with 2 stents, COPD, hyperlipidemia , and right-sided renal cell carcinoma (s/p nephrectomy in October 2016) currently treated with Pazopanib presenting to the CCU hypotensive and was initially intubated status post sigmoid colectomy with descending colostomy for perforated diverticulitis. The patient appears to be improving markedly from a pulmonary standpoint, thus pulmonary critical care will sign off at this time, should he require further surgical intervention for his intra-abdominal process we will be available for further respiratory and critical care. Perforated diverticulitis with intra-abdominal abscess. S/P sigmoid colectomy and descending colostomy, Improving -No longer on sedation -Ostomy output appropriate -[place] and ARCELIA drain should remain for now. -IV meropenem and Micafungin -Repeat CT abdomen 04/03 shows resolving pleural effusions, mild abdominal fluid with no evidence of abscess. Acute Hypoxic Respiratory Failure due to surgery and COPD, chronic. Present on admission. stable. -Pt intubated and sedated in the CCU. Extubated on 03/31 -Patient currently tolerating room air Elevated Alk Phos, POA, acute. Active -Patient has had high normal Alk Phos since admission -On 04/03 patient experienced an acute rise of his Alk Phos, which then herman to 641 the following day, continuing to rise -Ultrasound of the abdomen shows a prominent gallbladder (4.2 mm) Developing cholecystitis cannot be excluded. -GGT elevated indicative of Gallbladder derangement as source of rising Alk Phos -RUQ US equivocal for cholecystitis, perhaps developing cholecystitis -Will explore the possibility for HIDA scan Coronary artery disease, chronic. Present on admission. stable. -Pt with prior IA and two stents. Presented with mild chest pain with negative cardiac enzymes and no acute ischemic changes noted on ECG. -Continue home simvastatin and aspirin when able -Continuous cardiac monitoring. Renal cell carcinoma of right kidney, chronic. Presumed stable. -Pt is s/p nephrectomy in October 2016, currently treated with Pazopanib and dexamethasone. -CT abd/pelvis showed a renal cyst as above. -Resume oral medications when able Diabetes mellitus, type 2, chronic. Present on admission. Presumed stable. -Current outpatient therapy is Metformin 500mg PO BID -Hold Metformin -Continue tight glucose control. Per recommendations of general surgery if > 180 use insulin drip. Hypotension, acute. Resolved -Vital signs currently stable -TPN started on 03/27 Continue TPN Hypertension, chronic. Present on admission. Stable -Blood pressures remain stable -Held home antihypertensives: Lisinopril 40mg PO daily, Metoprolol succinate 50mg PO daily - IV metoprolol 2.5 mg every 4 Hyperlipidemia, chronic. Present on admission. Presumed stable. -Continue home dose statin (Simvastatin 20mg PO HS) when able Pulmonary and Critical Care Consult will sign off. Please reconsult as needed. Pain Evaluation: Adequate Pain Control GI Prophylaxis: H2 saw VTE Prophylaxis: Sub-Q Heparin (Unfractionated) VTE Mechanical Devices: Intermittant Pneumatic CD Resuscitation Status: CPR: Attempt Resuscitation Radhames Perdomo DO Apr 05, 2017 11:44 Devon Gutierrez MD Apr 06, 2017 07:17
--- NOTE | 2017-04-05 12:27 | DRSVH ---
PROCEDURE: X-RAY CHEST ONE VIEW, PORTABLE ([id number]) INDICATIONS: fu post extubation TECHNIQUE: One view of the chest was acquired. COMPARISON: [facility], CT, CT ABD PELVIS W CON, 04/03/2017, 13:43. [facility], CR, XR CHEST 1VW (PORTABLE), 04/03/2017, 4:05. FINDINGS: Surgical changes and devices: Stable position a right PICC and nasogastric tube as well as ET tube diez ve been removed. Lungs and pleura: No pleural effusion or pneumothorax. Lungs are clear, aside from persistent left b asilar airspace opacity. Mediastinum: Mediastinal contours appear normal. Heart size is normal. Bones and chest wall: No suspicious bony lesions. Overlying soft tissues appear unremarkable. IMPRESSION: Persistent left basilar airspace opacity consistent with atelectasis versus aspiration or infection. Dictated by: Abiodun Crockett RRA Interpreted: Diane Celeste MD on 04/05/2017 at 11:23 Approved by: Diane Celeste MD, PhD on 04/05/2017 at 12:25
--- NOTE | 2017-04-05 13:04 | NUR ---
Mentation/Resp/Hemodynamis/Temp/Activity Patient more alert, but confused. Making confused statements. Remains on RA with sats at 97%, but RR stays in the upper 20s-40s. Lungs are more clear today. Patient continues to have a moist productive cough. Intermittent oral suctioning and cleaning required. Temp this morning, 38.8 axillary and all MDs made aware. Blood cultures done. BP stable and noted adequate uop. Turning patient q 2 hours and patient did work with PT this morning. On schedule for HIDA scan today. TPN paused 4 hours prior to HIDA scan per radiology. Pharmacist ordered D10 to run at 100/hr while TPN paused. Continuing with POC. Addendum: 04/05/17 at 1716 by ALAN NEVES RN TPN resumed once back from [facility] having HIDA scan done.
--- NOTE | 2017-04-05 15:05 | NUR ---
INTERMEDIATE TRANSFER : Gave access and faxed facesheet Haley Shayy and [employer] per PUTTY PATCHER and MD order
--- NOTE | 2017-04-05 17:24 | DRSVH ---
PROCEDURE: NM HIDA SCAN WITH CCK PHARMACEUTICAL: R. 0.4 mCi Tc-99m mebrofenin IV; 1.7 mcg CCK IV. INDICATIONS: probable cholecystitis TECHNIQUE: Following intravenous administration of Tc-99m mebrofenin, sequential anterior abdominal images were obtained. To evaluate the contractile response of the gallbladder in response to Cholecystokinin (CC K), sincalide (0.02 g/kg) was administered by slow intravenous infusion approximately 60 minutes aft er the administration of the radiopharmaceutical. Sequential imaging was continued for [address] the start of CCK infusion. Gallbladder ejection fraction was calculated. COMPARISON: Merged With [facility], , [employer], 04/04/2017, 14:55. FINDINGS: Biliary scan: There is normal tracer uptake and excretion by the liver. There is normal visualizati on of the intrahepatic ducts, common bile duct, and gallbladder. There is normal tracer transit into the duodenum. CCK stimulation: There is good contractile response of the gallbladder to CCK infusion. The calcula rowan gallbladder ejection fraction is 96.7%; normal values are above 35%. It has been shown that any patient abdominal pain after CCK administration is related to the rate of CCK injection, rather than to any underlying gallbladder disease (Clinical Nuclear Medicine 2012; 37: 63-70. Journal of Nuclear Medicine 2014; 55: 1-9). IMPRESSION: 1. Normal filling of gallbladder. No evidence for acute cholecystitis. 2. Normal contractile response of gallbladder to CCK infusion. Dictated by: Ignacia Melgar M.D. on 04/05/2017 at 17:21 Approved by: Ignacia Melgar M.D. on 04/05/2017 at 17:22
--- NOTE | 2017-04-05 20:05 | PCM.PNMED ---
Subjective Date of Service Apr 05, 2017 Subjective Subjective: Patient talking in understandable phrases at this time, however he remains largely confused. Family states that he has had multiple benign hallucinations, however he remains docile and agreeable to medical intervention. Events Overnight: No acute events overnight. ROS: Denies fever/chills, nausea/vomiting, headache, weakness, abdominal pain, chest pain, shortness of breath, increased swelling in hands or feet. Exam Vital Signs Vital Sign - Last Date Time Temp Pulse Resp B/P Pulse Ox O2 Delivery O2 Flow Rate FiO2 04/05/17 16:45 37.2 92 140/78 98 Room Air 04/05/17 11:50 40 04/05/17 00:07 04/02/17 04:41 40 Intake and Output 04/04/17 04/04/17 04/05/17 Cumulative From/Thru 15:00 23:00 07:00 03/24/17 14:24 - 04/05/17 04:45 Intake Total 2130 ml 1444 ml 60442 ml Output Total 1055 ml 672 ml 71285 ml Balance 1075 ml 772 ml 3387 ml Intake Oral 0 ml 0 ml IV Total 624 ml 229 ml 98906 ml Tube Feeding 40 ml TPN/PPN 1506 ml 1215 ml 41345 ml Tube Irrigant 120 ml Output Urine Total 800 ml 650 ml 52307 ml Stool Total 50 ml 20 ml 710 ml Gastric Drainage Total 200 ml 0 ml 4260 ml Drainage Total 5 ml 2 ml 1180 ml Estimated Blood Loss 120 ml # Bowel Movements 1 Exam General: Extubated, breathing under own power, responsive to verbal stimulation , talking in phrases HEENT: Normocephalic, atraumatic. External ears without defect. Pupils equal, round, and reactive to light and accommodation. Anicteric sclerae, moist conjunctivae. IJ removed Cardiovascular: Regular rate and rhythm with no murmurs, rubs, or gallops appreciated Pulmonary: Patient is currently on breathing under his own power, very coarse breath sounds with loud rhonchi, no rales, no wheezes Abdomen: Bowel tones present. Soft, slightly distended, non-tender, ostomy putting out brown fluid. Well-healing incision with the superior portion closed with radha, the inferior portion draining appropriately. ARCELIA drain in place minor output. Extremities: No clubbing, cyanosis, edema, decreased color and warmth of the left leg compared to right. Pulses intact. Skin: Normal temperature, turgor, and texture; no rash, ulcers, or subcutaneous nodules appreciated. Neurological: Cranial nerves grossly intact. Patient appears to have normal movement of arms and legs Psychiatric: Patient appears upbeat, normal mood and affect. Speech is at times garbled and difficult to understand, improved from previous, patient remains marginally confused, with reported hallucinations. IVs and Medications IV Fluids 550 mL normal saline delivered with IV medications. Medications Reviewed: Medications were reviewed in detail Lab and Diagnostics Result Diagram: 04/05/17 1235 04/05/17 1302 Microbiology Blood culture 2/3 bottles positive for Gram + cocci X-Rays, CTs and MRIs (03/24/17) X-RAY CHEST ONE VIEW, PORTABLE IMPRESSION: No acute pulmonary process. Dictated and approved by: Windy Larsen M.D. on 03/24/2017 at 14:05 (03/24/17) CT ANGIO CHEST PULMONARY EMBOLISM IMPRESSION: 1. No acute pulmonary embolus. 2. 4 mm groundglass nodule. No prior comparisons are available. Please see followup guidelines below. 3. Please see detailed description of abdominal findings on the associated CT of the abdomen from the same date. ADDENDUM: Fleischner Society criteria for SOLID lung nodule followup. Nodule size (mm)Low-risk patientHigh-risk [id number] follow-up neededFollow-up at 12 mo; if no change, no further follow-up>[id number] CT at 12 mo; if no change, no further follow-up needed.Initial follow-up CT at 6-12 mo, then 18-24 mo if no change. >6-8Initial follow-up CT at 6-12 mo, then 18-24 mo if no change. Initial follow-up CT at 3-6 mo, then 9-12 mo and 24 mo if no change. > 8Follow-up CT at 3, 9, 24 mo. Or PET and/or biopsy.Same as for low-risk pts. Fleischner Society criteria for SUB-SOLID lung nodule followup. Solitary pure ground-glass nodules5 mm or lessNo followup needed. >5 mm3 mo follow-up CT to confirm persistence. Then annual CT for 3 years. Part-solid nodules3 mo follow-up CT to confirm persistence. If persistent with solid component <5 mm, annual CT for at least 3 years. If solid component is 5 mm or more, biopsy or surgical resection. Consider PET-CT for lesions > 10 mm. Multiple sub-solid nodulesPure ground glass nodules [address] at 2 and 4 years. Pure ground glass nodules >5 mm without dominant lesion. [address] to confirm persistence, then annual followup CT for at least 3 years. Dominant nodule(s) with part-solid or solid component. [address] to confirm persistence. If persistent, consider biopsy or surgical resection, carlito if lesions have >5 mm solid component. Dictated and approved by: Vanessa Torres M.D. on 03/24/2017 at 16:23 (03/24/17) CT ABDOMEN AND PELVIS WITH CONTRAST IMPRESSION: 1. Perforated acute diverticulitis with intra-abdominal abscess as above. Given the location posterior to the sigmoid colon and the bladder, this is likely not amenable to percutaneous drainage. Surgical consultation recommended. 2. Multiple foci of pneumoperitoneum. It is unclear whether there is a solitary perforated region of the sigmoid colon in the region of the abscess or if there may be a second bowel perforation more proximally in the left lower quadrant.These findings were discussed with Dr. Moreno at 4:27 PM on 03/24/17. 3. 1.0 cm diameter cystic lesion within the body of the pancreas. This is new when compared with the prior study dated 09/16/16. Differential considerations include both neoplastic and nonneoplastic cystic lesions. 4. Cholelithiasis. No acute cholecystitis. 5. Severe wedge compression deformity at L1 likely pathologic in nature given the expansile lytic lesion in this vertebral body on the study dated 09/16/16. Dictated and approved by: Vanessa Torres M.D. on 03/24/2017 at 16:24 X-RAY CHEST ONE VIEW, PORTABLE IMPRESSION: New ET tube, enteric tube, and left-sided IJ CVC in expected positions. New left pleural effusion with left basilar atelectasis. Dictated by: Bang Chung M.D. on 03/25/2017 at 7:54 Approved by: Bang Chung M.D. on 03/25/2017 at 7:56 X-RAY CHEST ONE VIEW, PORTABLE IMPRESSION: Decreased lung volumes, with patchy left midlung atelectasis. Dictated by: Darius Molina M.D. on 03/26/2017 at 8:30 Approved by: Darius Molina M.D. on 03/26/2017 at 8:33 CT ABDOMEN AND PELVIS WITH CONTRAST IMPRESSION: 1. Stable low density fluid collection around the surgical drain when compared with the study dated 03/30/17. No definite rim enhancement to suggest organizing abscess. 2. Decreased pleural effusions and consolidation at the lung bases are with the prior study. Dictated by: Vanessa Torres M.D. on 04/03/2017 at 15:29 . Additional Diagnostics Arterial Blood Gas DateTimeAnalyzed 07:18:35 -_ pH ____7.563 - 7.350 7.450 pCO2 ___28.1__ -mmHg 35.0 45.0 pO2 157 -mmHg 69.0 116 HCO3- ___25.3__ -mmol/L 22.0 26.0 ABE ____2.9__ -mmol/L -2.0 2.0 tHb ____9.8__ -g/dL 12.0 18.0 US ABDOMEN, LIMITED IMPRESSION: Cholelithiasis with prominent gallbladder wall measuring 4.2 mm. Developing cholecystitis cannot be excluded and clinical correlation is recommended. Dictated by: Abiodun Crockett [facility] Interpreted: Ace Sesay MD on 04/04/2017 at 15:55 Approved by: Ace Sesay M.D. on 04/04/2017 at 16:11 NM HIDA SCAN WITH CCK IMPRESSION: 1. Normal filling of gallbladder. No evidence for acute cholecystitis. 2. Normal contractile response of gallbladder to CCK infusion. Dictated by: Ignacia Melgar M.D. on 04/05/2017 at 17:21 Approved by: Ignacia Melgar M.D. on 04/05/2017 at 17:22 . Assessment & Plan 71 year old gentleman with a history of CAD with 2 stents, COPD, hyperlipidemia , and right-sided renal cell carcinoma (s/p nephrectomy in October 2016) currently treated with Pazopanib presenting to the CCU hypotensive and was initially intubated status post sigmoid colectomy with descending colostomy for perforated diverticulitis. Perforated diverticulitis with intra-abdominal abscess. S/P sigmoid colectomy and descending colostomy, active -No longer on sedation -Ostomy output appropriate -[place] and ARCELIA drain should remain for now, surgery continues to follow -IV meropenem and Micafungin -Repeat CT abdomen 04/03 shows resolving pleural effusions, mild abdominal fluid with no evidence of abscess. Acute Hypoxic Respiratory Failure due to surgery and COPD, chronic. Present on admission. stable. -Pt intubated and sedated in the CCU. Extubated on 03/31 -Patient currently tolerating 2 L nasal cannula Normocytic anemia, present on admission, active - Hemoglobin slowly trending down since admission - Morning hemoglobin 7.8 on 04/05, H&H repeated at 8.1 - Blood typed and crossed, proceed with transfusion if patient is less than 8.0 tomorrow morning Elevated Alk Phos, POA, acute. Active -Patient has had high normal Alk Phos since admission -On 04/03 patient experienced an acute rise of his Alk Phos, which then herman to 641 the following day -Ultrasound of the abdomen shows a prominent gallbladder (4.2 mm) Developing cholecystitis cannot be excluded. -GGT 520 consistent with cholecystitis and/or common bile duct obstruction -HIDA scan obtained on 04/05 shows no evidence of cholecystitis. Results as above Coronary artery disease, chronic. Present on admission. stable. -Pt with prior CO and two stents. Presented with mild chest pain with negative cardiac enzymes and no acute ischemic changes noted on ECG. -Continue home simvastatin and aspirin when able -Continuous cardiac monitoring. Renal cell carcinoma of right kidney, chronic. Presumed stable. -Pt is s/p nephrectomy in October 2016, currently treated with Pazopanib and dexamethasone. -CT abd/pelvis showed a renal cyst as above. -Resume oral medications when able Diabetes mellitus, type 2, chronic. Present on admission. Presumed stable. -Current outpatient therapy is Metformin 500mg PO BID -Hold Metformin -Continue tight glucose control. Per recommendations of general surgery if > 180 use insulin drip. Hypotension, acute. Resolved -Vital signs currently stable -TPN started on 03/27 Continue TPN Hypertension, chronic. Present on admission. Stable -Blood pressures remain stable -Held home antihypertensives: Lisinopril 40mg PO daily, Metoprolol succinate 50mg PO daily - IV metoprolol 2.5 mg every 4 Hyperlipidemia, chronic. Present on admission. Presumed stable. -Continue home dose statin (Simvastatin 20mg PO HS) when able GI Prophylaxis: H2 saw VTE Prophylaxis: Sub-Q Heparin (Unfractionated) VTE Mechanical Devices: Intermittant Pneumatic CD Resuscitation Status: CPR: Attempt Resuscitation Time spent 35 minutes Attending Statement I have seen and evaluated patient at bedside in addition to directly supervising care provided by resident physician Dr Suggs on 04/05/2017. I agree with above documentation Mode Suggs DO Apr 05, 2017 20:05 Jose Deal DO Apr 06, 2017 07:53
[2017-04-05] MEDS: Total Parenteral Nutrition 1 BAG IV SCH (20:22)
[2017-04-05] MEDS: TPN Per Pharmacist XX SCH (20:23)
[2017-04-06] VITALS (7 sets, daily range): BP systolic 132–151; BP diastolic 73–84; PULSE 99–116; RESP 20–36; O2SAT 93–97
[2017-04-06] MEDS: Meropenem Inj 2,000 MG in 0.9% Sodium Chloride 100 ML IV SCH ×3 (00:20→16:42)
[2017-04-06] MEDS: Heparin 5,000 Unit/mL Inj SUBQ SCH ×3 (00:22→16:42)
[2017-04-06 03:28] LABS: BASOPHILS % (AUTO) 0.2 % (0-3); EOSINOPHILS % (AUTO) 7.6 % (0-5); MONOCYTES % (AUTO) 8.6 % (4-12); Mean Corpuscular Hemoglobin 31.3 pg (27.0-35.0); Mean Corpuscular Volume 97.3 fL (81-100); NEUTROPHILS % (AUTO) 69.7 % (40-74); Platelet Count 541 bil/L (150-400)
[2017-04-06 03:44] LABS: INR 0.96 ratio
[2017-04-06 05:16] LABS: Magnesium 2.1 mg/dL (1.6-2.6); Phosphorus 2.2 mg/dL (2.5-4.9)
[2017-04-06] MEDS: MeTOProlol 1 mg/mL 5 mL Inj IVPUSH SCH ×5 (05:18→21:21)
--- NOTE | 2017-04-06 06:33 | NUR ---
MENTATION/ HEART RATE Alert, speech is garbled and not oriented to surroundings. Lungs sounds are moist, makes effort to cough/ clear when instructed; however, effort is diminished. SpO2 upper 90s on RA, Febrile and RR remains elevated. HR primarily in 100s, with several episodes of rate increase to upper 160s. Scheduled Metoprolol given. Rate spontaneously self-corrected. Denies pain. No drainage from ARCELIA, Mepilex on abdomen soiled and replace, now c/d/i. TPN infusing @ 117/hr. Last glucose 106. Report given to on coming RN.
--- NOTE | 2017-04-06 07:19 | PCM.PNSURG ---
Subjective Date of Service: Apr 06, 2017 Visit Information: Reason for Visit Perferated Diverticulitis Surgery/Surgery Date Post-Op Day # Date of Admission: Mar 24, 2017 at 17:07 Hospital Day # Subjective: Remains febrile overnight HR in 100s-110s with intermittent runs in 160s Still tachypneic but patient denies any respiratory distress He has no abdominal pain or nausea HIDA scan obtained yesterday showed normal GB filling and EF. Alk phos, AST, and ALT continue to rise Objective Vital Sign- Last 8 Hours Date Time Temp Pulse Resp B/P Pulse Ox O2 Delivery O2 Flow Rate FiO2 04/06/17 06:09 99 04/06/17 04:07 CPAP/BIPAP 04/06/17 03:24 37.5 109 20 151/73 95 Room Air Intake and Output- Last 8 Hour 04/06/17 Cumulative From/Thru 07:00 03/24/17 14:24 - 04/06/17 05:17 Intake Total 1719 ml 50621 ml Output Total 960 ml 29452 ml Balance 759 ml 4748 ml Intake Oral 0 ml 0 ml IV Total 1719 ml 20180 ml Tube Feeding 40 ml TPN/PPN 13479 ml Tube Irrigant 120 ml Output Urine Total 900 ml 52004 ml Stool Total 60 ml 920 ml Gastric Drainage Total 4260 ml Drainage Total 1180 ml Estimated Blood Loss 120 ml # Bowel Movements 1 General: Alert, No Acute Distress Neck: Supple Lungs: Rhonchorus Heart: Other (Tachycardic) Abdomen: Other (RLQ drain with scant turbid output. LLQ ostomy with stool and gas in bag. Midline abdominal wound covered by mepilex. Abdomen mildly distended but soft and nontender. ) Extremities: Other (1+ pitting edema bilaterally ) Result Diagram: 04/06/17 0320 04/06/17 0320 Assessment & Plan Impression 71M with perforated diverticulitis s/p ex lap and Hartmanns procedure with end descending colostomy on 03/24. He remains tachycardic, tachypneic, and febrile, despite broad spectrum antibiosis. With normal HIDA scan, his gallbladder does not appear to be the culprit. No evidence of intra-abdominal abscess on most recent CT. LFTs continue to rise in a cholestatic pattern. Problems: Plan - From surgical standpoint, ostomy is functional, midline wound is being appropriately addressed by wound care team (thanks!), and his ARCELIA drain should remain for the time being. - In regards to his cholestatic pattern of LFTs, his TPN should be discontinued and an attempt should be made to feed him orally. - If he cannot safely swallow, a feeding tube should be placed and tube feeds initiated - If his LFTs do not improve after TPN is stopped, consideration to an MRCP should be given - Consider UA, duplex of LEs for DVT, drug reaction etc as source of fever and tachycardia - Please do not hesitate to page/call surgical team with questions or concerns VTE Prophylaxis: Sub-Q Heparin (Unfractionated) Resuscitation Status: CPR: Attempt Resuscitation Gilbert Solano MD Apr 06, 2017 07:19
[2017-04-06] MEDS: Micafungin Inj 100 MG in 0.9% Sodium Chloride 100 ML IV SCH (09:00)
--- NOTE | 2017-04-06 09:30 | DRSVH ---
PROCEDURE: X-RAY CHEST ONE VIEW, PORTABLE ([id number]) INDICATIONS: FOLLOW UP post extubation TECHNIQUE: One view of the chest was acquired. COMPARISON: [facility], CR, XR CHEST 1VW (PORTABLE), 04/05/2017, 5:32. FINDINGS: Surgical changes and devices: Right PICC redemonstrated tip projected over the upper SVC. Lungs and pleura: No pleural effusions or pneumothorax. Lungs are clear, aside from left basilar op acity not significantly changed Mediastinum: Mediastinal contours appear normal. Heart size is normal. Bones and chest wall: No suspicious bony lesions. Overlying soft tissues appear unremarkable. IMPRESSION: Persistent left basilar airspace opacity consistent with atelectasis versus aspiration or pneumonia. Dictated by: Abiodun LINDSEY Interpreted: Vanessa Torres MD on 04/06/2017 at 9:10 Approved by: Vanessa Torres M.D. on 04/06/2017 at 9:28
--- NOTE | 2017-04-06 09:57 | PROG NOTE ---
[address] [address] PROGRESS NOTE PATIENT: JOSAFAT SOLIS : 1945 MR#: [id number] ADMIT: 03/24/2017 JOB ID: [id number] DATE: 04/06/2017 INFECTIOUS DISEASE FOLLOWUP NOTE: REASON FOR FOLLOWUP: Complex patient with intra-abdominal infection and persistent fevers. INTERVAL HISTORY: The patient reports he feels reasonably well today. He states that he is not short of breath, not having cough, fever, or chills. He states his abdominal pain, which had been worsening yesterday, is now fairly minimal and, in particular, he does not have any right upper quadrant pain. He is not having nausea or vomiting. He remains bedbound, and Physical Therapy is currently in the room trying to get him up to a chair. PHYSICAL EXAMINATION: Reveals a gentleman who has had low-grade fevers throughout the past five days. His current temperature is 37.2 but he was 38.0 earlier. His pulse is currently 116, respiratory rate in the low 20s on room air, blood pressure 150/82, and he is saturating quite well. He is in no acute distress and seems slightly more alert today than yesterday. No conjunctivitis. No oral lesions and specifically, no thrush or pharyngitis. His lungs are notable for scattered rhonchi and rales throughout both lung werner. Cardiac tones without new murmur. Abdomen is notable for the ARCELIA drain, as well as the colostomy in the incision below the umbilicus. The right upper quadrant pain of yesterday seems to have diminished actually, and there is no skin rash. LABORATORIES: Include a white count of 8400, platelet count 541,000. Creatinine 0.74. His alk phos has now almost doubled again today to 1154. His ALT is 143 and his AST 132. Procalcitonin continues to fall. It is now down to 0.8 but note that it was never seriously elevated. Urinalysis without white cells. Micro studies include negative blood cultures from yesterday, as well as negative blood cultures from the . Yesterday's HIDA scan of the liver was negative for cholecystitis. Today's chest x-ray was seen and compared to prior films. It shows a subtle left-sided infiltrate, which is not changing much. The patient continues to have low-grade fevers despite meropenem and micafungin therapy. Yesterday, I was extremely concerned about the possibility of developing cholecystitis but a HIDA scan proved to be negative and his followup repeat blood cultures drawn through the skin, as well as through the PICC line, have also been negative. The low-grade fevers, I suspect, are in some way tied to his worsening cholestatic hepatitis. The differential diagnosis for cholestatic hepatitis, of course, starts with cholecystitis or stone disease but at this point, we do not have definitive evidence of that. Other possibilities here might include some degree of sepsis which seems unlikely or perhaps some medication-induced cholestatic hepatitis. Micafungin has, on occasion, been associated with significant liver function test abnormalities and that would be part of the differential diagnosis here. On occasion, of course, meropenem could also produce such a picture but this would be unusual. RECOMMENDATIONS: 1. I would go ahead and stop the micafungin today, as it is conceivably causing some degree of hepatic dysfunction and perhaps fever. We have no conclusive proof of fungal infection, and he has already received eight days of this therapy. 2. Will continue tentatively with the meropenem for a bit longer but will consider stopping that in the near future, too, if we do not have more definitive evidence of infection. 3. Will continue to closely watch the patient's right upper quadrant, as I remain somewhat concerned, though the HIDA scan is in and of itself is somewhat reassuring.
--- NOTE | 2017-04-06 10:51 | NUR ---
NUTRITION FOLLOW UP: ASSESS: 71 YO M admitted to CCU with perforated diverticulitis, pneumoperitoneum with peritonitis, s/p exploratory laparotomy with sigmoid/descending colon resection, Diallo's and end-descending colostomy. Pt extubated 03/31. He has remained on TPN due to inability to pass ST eval, however his Alk phos continues to rise which is likely TPN related. Pt was able to pass ST eval this AM for stimulation diet. TPN to taper off today. PMHx: Renal cell cancer with current chemotherapy, immunosuppression, R. nephrectomy, CAD, COPD, HTN, dyslipidemia, type 2 diabetes, hiatal hernia, GI bleed. DIET: stimulation CURRENT TPN: Dex 300 g, AA 135 g, 25g lipids three times a week. LABS: Reviewed. Bun 36, emery grinder .74, Glu 114, Ca 8.3, phos 2.2, AST 132, ALT 143, alk phos 1154, alb 2.3, TG 247 MEDICATIONS: Reviewed. Lopressor, lasix, albumin. GI: Stool via colostomy- 170ml output 04/05 SKIN: Per Hand Tool Filer, there is no skin breakdown or erythremic areas noted. ANTHROPOMETRICS: Current Wt: 85.9 kg, BMI: 25.0 kg/m2. Admit wt 88kg, IBW: 83.64 kg ESTIMATED NEEDS: Healing, GI Calories: 2200-2700kcal/day (25-30kcal/kg) Protein: 105-135kcal/day (1.2-1.5g/kg) Fluid: Approx. 2700 mL (30 mL/kg BW) NUTRITION DIAGNOSIS: 1) Inadequate oral intake related to altered GI function, as evidenced by colectomy/colostomy, NPO status - PERSISTS. INTERVENTION: 1) Recommend TPN be tapered off due to elevated labs and as pt has a functional GI tract. 2) Continue to advance diet per ST. Will add Magic Cup on all trays to maximize kcal/pro intake while on stim diet. 3) If pt is not able to tolerate PO intake, recommend TF be considered. Recommend Vital 1.5 start at 10ml/hr and advance by 10ml q 6 hrs until reach goal rate of 75ml/hr to provide 2587kcal and 115g pro (100% estimated needs). If no IVF, flush 95ml q 2 hrs. MONITOR/EVALUATE: PO intake, ST, labs, TPN taper off, GI/nutrition status. Follow per high nutrition risk guidelines.
--- NOTE | 2017-04-06 11:09 | NUR ---
Evaluation completed. Please go to "Notes" then click on "Assessments and Notes" (bottom left corner of screen). Then select appropriate discipline tab on top of screen.
--- NOTE | 2017-04-06 12:45 | PCM.PNMED ---
Subjective Date of Service Apr 06, 2017 Subjective Subjective: Patient is currently talking in full sentences however he remains at least moderately confused. He remains non-decisional at this point. Events Overnight: No acute events overnight. ROS: Denies fever/chills, nausea/vomiting, headache, weakness, abdominal pain, chest pain, shortness of breath, increased swelling in hands or feet. Exam Vital Signs Vital Sign - Last Date Time Temp Pulse Resp B/P Pulse Ox O2 Delivery O2 Flow Rate FiO2 04/06/17 09:38 101 04/06/17 08:57 37.2 24 150/82 93 Room Air 04/05/17 00:07 04/02/17 04:41 40 Intake and Output 04/05/17 04/05/17 04/06/17 Cumulative From/Thru 15:00 23:00 07:00 03/24/17 14:24 - 04/06/17 05:17 Intake Total 1452 ml 1719 ml 05868 ml Output Total 850 ml 960 ml 75855 ml Balance 602 ml 759 ml 4748 ml Intake Oral 0 ml 0 ml 0 ml IV Total 952 ml 1719 ml 41663 ml Tube Feeding 40 ml TPN/PPN 500 ml 71302 ml Tube Irrigant 120 ml Output Urine Total 700 ml 900 ml 71581 ml Stool Total 150 ml 60 ml 920 ml Gastric Drainage Total 4260 ml Drainage Total 1180 ml Estimated Blood Loss 120 ml # Bowel Movements 1 Exam General: Extubated, breathing under own power, responsive to verbal stimulation , talking in phrases HEENT: Normocephalic, atraumatic. External ears without defect. Pupils equal, round, and reactive to light and accommodation. Anicteric sclerae, moist conjunctivae. IJ removed Cardiovascular: Regular rate and rhythm with no murmurs, rubs, or gallops appreciated Pulmonary: Patient is currently on breathing under his own power, very coarse breath sounds with loud rhonchi, no rales, no wheezes Abdomen: Bowel tones present. Soft, slightly distended, non-tender, ostomy putting out brown fluid. Well-healing incision with the superior portion closed with radha, the inferior portion draining appropriately. ARCELIA drain in place minor output. Extremities: No clubbing, cyanosis, edema, decreased color and warmth of the left leg compared to right. Pulses intact. Skin: Normal temperature, turgor, and texture; no rash, ulcers, or subcutaneous nodules appreciated. Neurological: Cranial nerves grossly intact. Patient appears to have normal movement of arms and legs Psychiatric: Patient appears upbeat, normal mood and affect. Speech is at times garbled and difficult to understand, improved from previous, patient remains marginally confused, with reported hallucinations. IVs and Medications IV Fluids 200 mL normal saline delivered with IV medications. Medications Reviewed: Medications were reviewed in detail Lab and Diagnostics Result Diagram: 04/06/17 0320 04/06/17 0320 Microbiology Blood culture 2/3 bottles positive for Gram + cocci X-Rays, CTs and MRIs (03/24/17) X-RAY CHEST ONE VIEW, PORTABLE IMPRESSION: No acute pulmonary process. Dictated and approved by: Windy Larsen M.D. on 03/24/2017 at 14:05 (03/24/17) CT ANGIO CHEST PULMONARY EMBOLISM IMPRESSION: 1. No acute pulmonary embolus. 2. 4 mm groundglass nodule. No prior comparisons are available. Please see followup guidelines below. 3. Please see detailed description of abdominal findings on the associated CT of the abdomen from the same date. ADDENDUM: Fleischner Society criteria for SOLID lung nodule followup. Nodule size (mm)Low-risk patientHigh-risk [id number] follow-up neededFollow-up at 12 mo; if no change, no further follow-up>[id number] CT at 12 mo; if no change, no further follow-up needed.Initial follow-up CT at 6-12 mo, then 18-24 mo if no change. >6-8Initial follow-up CT at 6-12 mo, then 18-24 mo if no change. Initial follow-up CT at 3-6 mo, then 9-12 mo and 24 mo if no change. > 8Follow-up CT at 3, 9, 24 mo. Or PET and/or biopsy.Same as for low-risk pts. Fleischner Society criteria for SUB-SOLID lung nodule followup. Solitary pure ground-glass nodules5 mm or lessNo followup needed. >5 mm3 mo follow-up CT to confirm persistence. Then annual CT for 3 years. Part-solid nodules3 mo follow-up CT to confirm persistence. If persistent with solid component <5 mm, annual CT for at least 3 years. If solid component is 5 mm or more, biopsy or surgical resection. Consider PET-CT for lesions > 10 mm. Multiple sub-solid nodulesPure ground glass nodules [address] at 2 and 4 years. Pure ground glass nodules >5 mm without dominant lesion. [address] to confirm persistence, then annual followup CT for at least 3 years. Dominant nodule(s) with part-solid or solid component. [address] to confirm persistence. If persistent, consider biopsy or surgical resection, carlito if lesions have >5 mm solid component. Dictated and approved by: Vanessa Torres M.D. on 03/24/2017 at 16:23 (03/24/17) CT ABDOMEN AND PELVIS WITH CONTRAST IMPRESSION: 1. Perforated acute diverticulitis with intra-abdominal abscess as above. Given the location posterior to the sigmoid colon and the bladder, this is likely not amenable to percutaneous drainage. Surgical consultation recommended. 2. Multiple foci of pneumoperitoneum. It is unclear whether there is a solitary perforated region of the sigmoid colon in the region of the abscess or if there may be a second bowel perforation more proximally in the left lower quadrant.These findings were discussed with Dr. Moreno at 4:27 PM on 03/24/17. 3. 1.0 cm diameter cystic lesion within the body of the pancreas. This is new when compared with the prior study dated 09/16/16. Differential considerations include both neoplastic and nonneoplastic cystic lesions. 4. Cholelithiasis. No acute cholecystitis. 5. Severe wedge compression deformity at L1 likely pathologic in nature given the expansile lytic lesion in this vertebral body on the study dated 09/16/16. Dictated and approved by: Vanessa Torres M.D. on 03/24/2017 at 16:24 X-RAY CHEST ONE VIEW, PORTABLE IMPRESSION: New ET tube, enteric tube, and left-sided IJ CVC in expected positions. New left pleural effusion with left basilar atelectasis. Dictated by: Bang Chung M.D. on 03/25/2017 at 7:54 Approved by: Bang Chung M.D. on 03/25/2017 at 7:56 X-RAY CHEST ONE VIEW, PORTABLE IMPRESSION: Decreased lung volumes, with patchy left midlung atelectasis. Dictated by: Darius Molina M.D. on 03/26/2017 at 8:30 Approved by: Darius Molina M.D. on 03/26/2017 at 8:33 CT ABDOMEN AND PELVIS WITH CONTRAST IMPRESSION: 1. Stable low density fluid collection around the surgical drain when compared with the study dated 03/30/17. No definite rim enhancement to suggest organizing abscess. 2. Decreased pleural effusions and consolidation at the lung bases are with the prior study. Dictated by: Vanessa Torres M.D. on 04/03/2017 at 15:29 . Additional Diagnostics Arterial Blood Gas DateTimeAnalyzed 07:18:35 -_ pH ____7.563 - 7.350 7.450 pCO2 ___28.1__ -mmHg 35.0 45.0 pO2 157 -mmHg 69.0 116 HCO3- ___25.3__ -mmol/L 22.0 26.0 ABE ____2.9__ -mmol/L -2.0 2.0 tHb ____9.8__ -g/dL 12.0 18.0 US ABDOMEN, LIMITED IMPRESSION: Cholelithiasis with prominent gallbladder wall measuring 4.2 mm. Developing cholecystitis cannot be excluded and clinical correlation is recommended. Dictated by: Abiodun Crockett RRA Interpreted: Ace Sesay MD on 04/04/2017 at 15:55 Approved by: Ace Sesay M.D. on 04/04/2017 at 16:11 NM HIDA SCAN WITH CCK IMPRESSION: 1. Normal filling of gallbladder. No evidence for acute cholecystitis. 2. Normal contractile response of gallbladder to CCK infusion. Dictated by: Ignacia Melgar M.D. on 04/05/2017 at 17:21 Approved by: Ignacia Melgar M.D. on 04/05/2017 at 17:22 . Assessment & Plan 71 year old gentleman with a history of CAD with 2 stents, COPD, hyperlipidemia , and right-sided renal cell carcinoma (s/p nephrectomy in October 2016) currently treated with Pazopanib presenting to the CCU hypotensive and was initially intubated status post sigmoid colectomy with descending colostomy for perforated diverticulitis. Patient continues to still have unexplained fevers is currently being worked up for this. Patient continues to progress from a neurological and psychiatric standpoint. Swallow evaluation was ordered 04/06 suggesting 5-10 bites of highly nutritional supplementation. As patient progresses from this perspective he will likely require SNF placement once hematologically stable. Fevers of unknown origin, not present on admission, active - Possibly due to progressive neoplasm, will contact patient's oncologist to ensure that he is on the correct medications for his condition. - Ultrasounds of the lower limbs conducted to rule out DVT, negative - Per ID, Micafungin discontinued as this can potentially cause elevations in temperature - UA negative - CT, ultrasound suggests cholelithiasis with possible cholecystitis, HIDA scan suggests no cholecystitis at this time - TSH pending - ID following, recommendations appreciated Acute Hypoxic Respiratory Failure due to surgery and COPD, chronic. Present on admission. stable. -Pt intubated and sedated in the CCU. Extubated on 03/31 -Patient currently breathing well on room air Normocytic anemia, present on admission, active - Hemoglobin slowly trending down since admission - Morning hemoglobin 7.8 on 04/05, H&H repeated at 8.1 - Blood typed and crossed, proceed with transfusion if patient is less than 8.0 Elevated Alk Phos, POA, acute. Active Likely due to cholestasis and TPN, patient will begin oral feedings on 04/06 continue to monitor. -Patient has had high normal Alk Phos since admission, numbers continue to rise -Ultrasound of the abdomen shows a prominent gallbladder (4.2 mm) Developing cholecystitis cannot be excluded. -GGT 520 consistent with cholecystitis and/or common bile duct obstruction -HIDA scan obtained on 04/05 shows no evidence of cholecystitis. Results as above Perforated diverticulitis with intra-abdominal abscess. S/P sigmoid colectomy and descending colostomy, active -No longer on sedation -Ostomy output appropriate -[place] and ARCELIA drain should remain for now, surgery continues to follow -IV meropenem and Micafungin -Repeat CT abdomen 04/03 shows resolving pleural effusions, mild abdominal fluid with no evidence of abscess. Coronary artery disease, chronic. Present on admission. stable. -Pt with prior [place] and two stents. Presented with mild chest pain with negative cardiac enzymes and no acute ischemic changes noted on ECG. -Continue home simvastatin and aspirin when able -Continuous cardiac monitoring. Renal cell carcinoma of right kidney, chronic. Presumed stable. -Pt is s/p nephrectomy in October 2016, treated with Pazopanib and dexamethasone. -CT abd/pelvis showed a renal cyst as above. -Resume oral medications when able Diabetes mellitus, type 2, chronic. Present on admission. Presumed stable. -Current outpatient therapy is Metformin 500mg PO BID -Hold Metformin -Continue tight glucose control. Per recommendations of general surgery if > 180 use insulin drip. Hypotension, acute. Resolved -Vital signs currently stable -TPN started on 03/27 Continue TPN Hypertension, chronic. Present on admission. Stable -Blood pressures remain stable -Held home antihypertensives: Lisinopril 40mg PO daily, Metoprolol succinate 50mg PO daily - IV metoprolol 2.5 mg every 4 Hyperlipidemia, chronic. Present on admission. Presumed stable. -Continue home dose statin (Simvastatin 20mg PO HS) when able GI Prophylaxis: H2 saw VTE Prophylaxis: Sub-Q Heparin (Unfractionated) VTE Mechanical Devices: Intermittant Pneumatic CD Resuscitation Status: CPR: Attempt Resuscitation Time spent 35 minutes Attending Statement I have seen and evaluated the patient at bedside in addition to directly supervising care provided by Dr Suggs on 04/06/2017. I agree with above documentation. Mode Suggs DO Apr 06, 2017 12:45 Jose Deal DO Apr 07, 2017 07:21
--- NOTE | 2017-04-06 13:39 | NUR ---
Wound Care Patient seen at bedside for abdominal wound care and dressing change. Open wound below umbilicus and intact incision is approximately 9 cm x 6 cm x 3 cms, draining moderate serous fluid without odor, periwound skin without erythema. Wound bed is granular, light pink with a thin covering of slime like slough or biofilm. There is no odor to speak of. After cleaning this wound with gauze and saline further evaluation reveals fascial layer to be intact without tunneling, sinus or fistula noted. Wound was redressed with aquacell ag moistened with saline and a secondary dressing of mepilex adhesive foam, foam can be changed PRN. Will consult with surgery whether delayed closure to be performed or is it time to apply NPWT to facilitate accelerated granulation tissue growth and subsequent decreased healing time for this abdominal wound. Ostomy appliance intact as is ARCELIA drain at right lower quadrant.
--- NOTE | 2017-04-06 17:08 | NUR ---
Social Work: Continued Discharge Planning/Multidisciplinary Rounds D: Pt discussed in multidisciplinary rounds; pt is being started on tube feeds and is with broad spectrum IV ABX. Unknown how long pt will require IV ABX at this time. 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 She states they can accept the patient when he is medically stable with Dr. Parmar to follow. PPW on file. PASSR in folder A: Pt who will likely require skilled rehab at discharge P Anticipate pt to discharge to SNF once medically stable; [facility] accepted [facility]. [facility] is still reviewing. [facility] [employer]
--- NOTE | 2017-04-06 17:31 | NUR ---
Mentation/Mobility The pt exhibited steady confusion throughout the shift - oriented to self only - Visual and auditory hallucinations frequently. The pt was up to a reclining chair with PT today, and was very impulsive, unsteady/weak with HR jumping into the 160's with AFlutter. After sitting in a chair for 30 min, the pt became fatigued and asked to get back into bed. His HR spiked again with the exertion, and he spent the rest of the shift in bed with Q2 turns. VSS, and the pt is currently A&Ox1.
--- NOTE | 2017-04-06 18:39 | DRSVH ---
PROCEDURE: US VENOUS LEG DUPLEX BILATERAL INDICATIONS: r/o DVT TECHNIQUE: Real-time imaging, as well as color and pulse Doppler interrogation, were performed of the deep veins of both legs from the inguinal ligament to the popliteal fossa. COMPARISON: None. FINDINGS: The deep veins are normally compressible, and free of intraluminal thrombus. Color and pu lse Doppler demonstrate normal phasic intravascular flow. There is normal augmentation response to d istal compression maneuver. IMPRESSION: No DVT found. Dictated by: Jimbo Timmons M.D. on 04/06/2017 at 18:37 Approved by: Jimbo Timmons M.D. on 04/06/2017 at 18:37
[2017-04-07] VITALS (9 sets, daily range): BP systolic 111–149; BP diastolic 66–83; PULSE 98–111; RESP 19–33; O2SAT 96–98
[2017-04-07] MEDS: Heparin 5,000 Unit/mL Inj SUBQ SCH ×3 (00:48→16:52)
[2017-04-07] MEDS: Meropenem Inj 2,000 MG in 0.9% Sodium Chloride 100 ML IV SCH ×3 (00:48→16:53)
[2017-04-07] MEDS: MeTOProlol 1 mg/mL 5 mL Inj IVPUSH SCH ×6 (00:49→20:53)
[2017-04-07 04:29] LABS: BASOPHILS % (AUTO) 0.6 % (0-3); EOSINOPHILS % (AUTO) 8.3 % (0-5); MONOCYTES % (AUTO) 9.1 % (4-12); Mean Corpuscular Hemoglobin 30.6 pg (27.0-35.0); Mean Corpuscular Volume 97.3 fL (81-100); NEUTROPHILS % (AUTO) 69.5 % (40-74); Platelet Count 645 bil/L (150-400)
--- NOTE | 2017-04-07 06:03 | NUR ---
Hemoglobin Hemoglobin this AM decreased to 7.8 from 8.1; paged regarding transfusion orders, instructed to wait and monitor at this time. VSS throughout shift, tele ST 90s-100s. Q2H turns in place.
--- NOTE | 2017-04-07 08:23 | PROG NOTE ---
[address] [address] PROGRESS NOTE PATIENT: JOSAFAT SOLIS : 1945 MR#: [id number] ADMIT: 03/24/2017 JOB ID: [id number] DATE: 04/07/2017 INFECTIOUS DISEASE FOLLOW UP NOTE: REASON FOR FOLLOWUP: Fever and worsening cholestatic hepatitis in a postoperative patient. INTERVAL HISTORY: Recall that this is the 71-year-old gentleman who had perforated diverticulitis with abscess formation. He received appropriate surgical intervention with formation of a colostomy and placement of a ARCELIA drain and eventual packing of an open wound which had developed at a surgical site beneath the umbilicus. Overall, the patient's course has been one of rather steady improvement over the past couple weeks but in the past several days he has developed a worsening and very striking cholestatic hepatitis in association with low-grade fevers. Multiple imaging studies including a HIDA scan, abdominal CT and abdominal ultrasound have failed to uncover a specific cause for this worsening cholestatic hepatitis which has been ascribed by some to the effects of TPN. Yesterday, I stopped his micafungin with the thought that this could on rare occasions cause cholestatic hepatitis. Overnight the patient states he has no fever or chills. He tells me that the nurses keep telling him he has fevers but he is really not much aware of it and feels gradually better. He denies any headache or sore throat. He says he has an occasional minimal cough but he is not short of breath in any way and has no pleuritic chest pain. Despite the presence of his new colostomy, open wound and ARCELIA drain, he says he has little in the way of abdominal pain though perhaps a twinge in the right upper quadrant. He still has a [place] catheter and, therefore, has no urinary complaints. He still has a PICC line in his right upper extremity that does not bother him either. PHYSICAL EXAMINATION: Reveals an increasingly comfortable gentleman lying supine in his bed. He is awake and oriented this morning. His T-max the last 48 hours is 38.1. Right now he is 37.4. Pulse 100, respiratory rate 25, blood pressure 144/83. He is saturating well on room air and in no distress at all. Eyes without conjunctivitis, though his conjunctivae are a bit pale. Oral cavity without thrush or hairy leukoplakia. No pharyngitis is seen. No abnormalities of the neck are noted. He has a PICC in his right upper extremity which appears benign. His lungs are relatively clear. A few crackles at the bases, perhaps more on the left than the right. Cardiac tones without new murmur. Abdomen still with the open wound which I evaluated today. It is packed and without apparent infection or odor. He also has the ARCELIA drain in place as well as the colostomy. His abdomen is generally benign though there may be minimal right upper quadrant tenderness with the deepest of palpation. [place] catheter is present. Penis and scrotum appear normal. Legs are not unduly swollen. LABORATORIES: Include a white count stable at 8500, platelet count 645 and rising. Differential on the white count though otherwise essentially normal though he does have 8% eosinophils. The patient's creatinine is 0.74. His AST 180, that is rising. ALT 163 and rising and alk phos 1630. Recall this was normal six days ago so this is an incredible 15 fold rise in alk phos over just a few days. A GGT that I had ordered three days ago was 519 which is about eight times normal. Procalcitonin is currently 0.8. His procalcitonins have never been really significantly elevated. Micro studies include negative blood cultures from the . There were also negative blood cultures on the and . IMAGING: Most recent imaging includes ultrasound of the lower extremities. It shows no DVT. That was done yesterday. A chest x-ray done yesterday which I reviewed shows what looks like some minimal left atelectasis. HIDA scan done two days ago was negative and the abdominal ultrasound done on the showed cholelithiasis with a bit of a thick gallbladder wall. IMPRESSION: This is a challenging case of a gentleman who has had intra-abdominal catastrophe which has been extremely well managed and he seems to be basically doing well and out of the santamaria except for the fact that he is now developing low-grade fevers, as well as some degree of mild eosinophilia in a very striking cholestatic hepatitis pattern. He does have some minimal right upper quadrant tenderness and I remain concerned about the development of cholecystitis. Other possibilities for his very elevated alk phos and GGT would, of course, include the TPN which was stopped yesterday, medication effects, or perhaps some systemic unrelated process which I feel is very unlikely at this point, such as sarcoid or primary sclerosing cholangitis or something along those lines. RECOMMENDATIONS: 1. Repeat two fungal blood cultures today one through the skin and one through the PICC. 2. If we no longer need the PICC, I think we could consider removing it and culturing the tip, though I do not think it is the cause of these fevers or certainly is cholestatic hepatitis. 3. In view of the absence of infection and the fact he has received very aggressive antibiotics including Zosyn followed by meropenem, I think it is probably reasonable to consider stopping the meropenem in the near future. This might be especially useful in light of his developing eosinophilia. 4. I agree with the oral feeding and avoiding TPN in this patient. 5. I have ordered an ultrasound of the abdomen to be done this morning with attention to the right upper quadrant. It may be indicated to do an MRCP in the near future if this progressive cholestatic hepatitis persists despite stopping TPN as well as micafungin.
--- NOTE | 2017-04-07 09:21 | PCM.PNSURG ---
Subjective Date of Service: Apr 07, 2017 Date of Service: Apr 07, 2017 Visit Information: Reason for Visit Perferated Diverticulitis w/ current idiopathic tachycardia, elevated LFTs, & fever of unknown origin Surgery/Surgery Date Post-Op Day # 12 Exploratory laparotomy, sigmoid colectomy, descending colostomy (Diallo procedure) Date of Admission: Mar 24, 2017 at 17:07 Hospital Day # Subjective: RN reports steady confusion, febrile overnight, with persistent elevated heart rate involving occasional flutter. The Medical Team has requested GI consult with MRCP considering possible ERCP versus cholecystostomy tube secondary to elevated LFTs and perceived hepatobiliary disease. Wound care has placed a wound VAC on the midline incision. The patient denies significant abdominal pain or nausea. TPN was stopped & he passed swallow evaluation; but will remain NPO for possible procedures today. Postop General: No Complaints Gastrointestinal: No N/V, Passing Stool Pain Management: No or Minimal Pain Objective Vital Sign- Last 8 Hours Date Time Temp Pulse Resp B/P Pulse Ox O2 Delivery O2 Flow Rate FiO2 04/07/17 09:16 105 04/07/17 05:41 100 04/07/17 04:03 37.4 98 25 144/83 97 Room Air Intake and Output- Last 8 Hour 04/07/17 Cumulative From/Thru 07:00 03/24/17 14:24 - 04/07/17 06:57 Intake Total 759 ml 10988 ml Output Total 900 ml 00792 ml Balance -141 ml 3607 ml Intake Oral 0 ml 50 ml IV Total 759 ml 59247 ml Tube Feeding 40 ml TPN/PPN 15942 ml Tube Irrigant 120 ml Output Urine Total 800 ml 21087 ml Stool Total 100 ml 1020 ml Gastric Drainage Total 4260 ml Drainage Total 1180 ml Estimated Blood Loss 120 ml # Bowel Movements 1 General: Alert, Cooperative, No Acute Distress Lungs: Other (Rhonchorus) Heart: Other (her) Abdomen: Soft, Appropriately tender, Non-distended, Ostomy (sunkin w/ bilius stool output) SURGICAL WOUND : Wound Location/Description Midline surgical incision is dehiscent on the inferior aspect approximately 9 cm x 6 cm x 3 cm without oder, apparent sinus tracts or fascial involvement & minimal periwound erythema, wound biofilm exudates into a mostly clean granular red bed with serous drainage into the aquacell & mepilex dressing, with current functioning wound vac placement & the superior aspect is of the incision is well approximated with radha. Wound Drainage Type: ARCELIA Drain #1 (Minimal turbid ) Extremities: Other (1+ pitting edema bilateral) Result Diagram: 04/07/1741404/07/17414 Diagnostics: [place]. [address] PATIENT NAME: JOSAFAT SOLIS : 1945 GENDER: Misael MARTINEZ EXAM DATE: 04/05/2017 14:44 ORDERED FROM: [facility] ORDERING PHYSICIAN: GEORGE CARDOSO CC: OBIE PELAEZ CONTRAST: READING STATION ID: [id number] mGy: PROCEDURE: TX HIDA SCAN WITH CCK PHARMACEUTICAL: R. 0.4 mCi Tc-99m mebrofenin IV; 1.7 mcg CCK IV. INDICATIONS: probable cholecystitis TECHNIQUE: Following intravenous administration of Tc-99m mebrofenin, sequential anterior abdominal images were obtained. To evaluate the contractile response of the gallbladder in response to Cholecystokinin (CCK), sincalide (0.02 g/kg) was administered by slow intravenous infusion approximately 60 minutes after the administration of the radiopharmaceutical. Sequential imaging was continued for 30 minutes after the start of CCK infusion. Gallbladder ejection fraction was calculated. COMPARISON: [facility], , ABDOMEN LTD, 04/04/2017, 14:55. FINDINGS: Biliary scan: There is normal tracer uptake and excretion by the liver. There is normal visualization of the intrahepatic ducts, common bile duct, and gallbladder. There is normal tracer transit into the duodenum. CCK stimulation: There is good contractile response of the gallbladder to CCK infusion. The calculated gallbladder ejection fraction is 96.7%; normal values are above 35%. It has been shown that any patient abdominal pain after CCK administration is related to the rate of CCK injection, rather than to any underlying gallbladder disease ( Clinical Nuclear Medicine 2012; 37: 63-70. Journal of Nuclear Medicine 2014; 55: 1-9). Continued Report - Page 2 of 2 PATIENT NAME: JOSAFAT SOLIS : 1945 GENDER: Misael MARTINEZ EXAM DATE: 04/05/2017 14:44 ORDERED FROM: [facility] ORDERING PHYSICIAN: GEORGE CARDOSO CC: OBIE PELAEZ CONTRAST: READING STATION ID: [id number] mGy: IMPRESSION: 1. Normal filling of gallbladder. No evidence for acute cholecystitis. 2. Normal contractile response of gallbladder to CCK infusion. Dictated by: Ignacia Melgar M.D. on 04/05/2017 at 17:21 Approved by: Ignacia Melgar M.D. on 04/05/2017 at 17:22 [place] [address] PATIENT NAME: JOSAFAT SOLIS : 1945 GENDER: Misael MARTINEZ EXAM DATE: 04/06/2017 17:31 ORDERED FROM: [facility] ORDERING PHYSICIAN: GA WARNER CC: OBIE MESSINA MARY BETHARON CONTRAST: READING STATION ID: [id number] mGy: PROCEDURE: US VENOUS LEG DUPLEX BILATERAL INDICATIONS: r/o DVT TECHNIQUE: Real-time imaging, as well as color and pulse Doppler interrogation, were performed of the deep veins of both legs from the inguinal ligament to the popliteal fossa. COMPARISON: None. FINDINGS: The deep veins are normally compressible, and free of intraluminal thrombus. Color and pulse Doppler demonstrate normal phasic intravascular flow. There is normal augmentation response to distal compression maneuver. IMPRESSION: No DVT found. Dictated by: Jimbo Timmons M.D. on 04/06/2017 at 18:37 Approved by: Jimbo Timmons M.D. on 04/06/2017 at 18:37 [place] [address] PATIENT NAME: JOSAFAT SOLIS : 1945 GENDER: Misael MARTINEZ EXAM DATE: 04/06/2017 3:51 ORDERED FROM: [facility] ORDERING PHYSICIAN: MAYA JEREZ CC: OBIE AHUJAIK SHENGMCARON CONTRAST: READING STATION ID: [id number] mGy: PROCEDURE: X-RAY CHEST ONE VIEW, PORTABLE ([id number]) INDICATIONS: FOLLOW UP post extubation TECHNIQUE: One view of the chest was acquired. COMPARISON: [facility], CR, XR CHEST 1VW (PORTABLE), 04/05/2017, 5: 32. FINDINGS: Surgical changes and devices: Right PICC redemonstrated tip projected over the upper SVC. Lungs and pleura: No pleural effusions or pneumothorax. Lungs are clear, aside from left basilar opacity not significantly changed Mediastinum: Mediastinal contours appear normal. Heart size is normal. Bones and chest wall: No suspicious bony lesions. Overlying soft tissues appear unremarkable. IMPRESSION: Persistent left basilar airspace opacity consistent with atelectasis versus aspiration or pneumonia. Dictated by: Abiodun Crockett RRA Interpreted: Vanessa Torres MD on 04/06/2017 at 9:10 Approved by: Vanessa Torres M.D. on 04/06/2017 at 9:28 Assessment & Plan Impression Primary diagnoses: Perforated diverticulitis with feculent peritonitis. POD # 12 S/P Exploratory laparotomy, sigmoid colectomy, descending colostomy (Diallo procedure) with current midline wound dehiscence, a questionable ostomomy, persistent idiopathic tachycardia, fever of unknown origin, & . elevated LFTs. Other chronic conditions: 1. Coronary artery disease, status post myocardial infarction (2 stents, 2011) 2. Renal cell carcinoma of the right kidney, chronic/stable. Right nephrectomy 2014 3. Diabetes mellitus type II 4. Hypertension 5. Hyperlipidemia 6. COPD 7. History of hiatal hernia with associated dyspepsia 8. Former cigarette smoker Problems: Plan GENERAL SURGERY RECOMMENDATIONS: 1. Continue wound care per protocol. 2. Hold ARCELIA drain until etiologies above determined. 3. GI consult for possible cholecystostomy tube 4. Keep nothing by mouth until recommended procedures completed today. 5. Follow-up ID recommendations. 6. Defer to hospitalist team for medical care. 7. Repeat AM Labs tomorrow VTE Prophylaxis: Sub-Q Heparin (Unfractionated), SCDs Resuscitation Status: CPR: Attempt Resuscitation Rach,Jimbo PA-C Apr 07, 2017 09:21
[2017-04-07 10:09] LABS: APPEARANCE,URINE HAZY (CLEAR,HAZY); COLOR,URINE YELLOW (YELLOW); OCCULT BLOOD,URINE MODERATE (NEGATIVE); UROBILINOGEN,URINE NORMAL (NORMAL)
--- NOTE | 2017-04-07 12:12 | NUR ---
Inpatient Wound and Ostomy Nurse Patient seen for wound care and ostomy wafer change. Peristomal skin intact though erythemic, no open areas and no evidence of yeast or infection. Skin margins are redder than surrounding skin. Stoma is retracted to subcu level, black in areas, with stringy, well-adhered slough. Applesauce consistency, dark brown stool is odorous. Os is centered. Skin was cleansed and dried well. An Amanda ring was opened to stoma size and shape and placed, then a convex moldable wafer placed over Amanda with clear pouch. Abdominal wound dressing intact and removed Aquacel was about 50% saturated. Wound measured 7 cm L x 5.5. cm W x 2.5 cm D. Wound dimensions change easily, especially width, as patient is repositioned. Patient was lying flat on back for application of Wound Vac today. Beefy red wound tissue is granulating about 80% and proximal wound bed is area 0.2 cm L x 0.2 cm W of creamy white slough. No signs of infection, patient did not complain of pain. Wound was cleansed well with NS, blotted dry, then NPWT was applied, black foam only, 125 low continuous suction, seal obtained quickly. ARCELIA insertion site dressing was patent. Patient conversant throughout care, very confused, SIZE TESTER kept him distracted and he showed no signs of pain. CWON will see patient Monday.
--- NOTE | 2017-04-07 12:14 | NUR ---
Off the Unit The pt was taken off the unit for a MRCP at 1210. The pt left saline locked and off TELE and left alert, but not oriented. VSS Addendum: 04/07/17 at 1324 by AYANNA ESPINAL RN Pt returned to the unit at 1300. IV's, TELE and the wound vac were reconnected. The pt is still alert but not oriented. VSS
--- NOTE | 2017-04-07 13:30 | NUR ---
NUTRITION FOLLOW UP: ASSESS: 71 YO M admitted to CCU with perforated diverticulitis, pneumoperitoneum with peritonitis, s/p exploratory laparotomy with sigmoid/descending colon resection, Diallo's and end-descending colostomy. Pt extubated 03/31. TPN was tapered off 04/06. He passed ST eval for stimulation diet but pt has been NPO 04/07 for possible procedures today. Pt's LFTs continue to be elevated. GI has been consulted for MRCP and possible ERCP. PMHx: Renal cell cancer with current chemotherapy, immunosuppression, R. nephrectomy, CAD, COPD, HTN, dyslipidemia, type 2 diabetes, hiatal hernia, GI bleed. DIET: stimulation, no PO yet LABS: Reviewed. 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 Lopressor, lasix, albumin. GI: Stool via colostomy- 60ml output 04/06 SKIN: Per [employer], there is no skin breakdown or erythremic areas noted. ANTHROPOMETRICS: Current Wt: 85.5kg, BMI: 24.9 kg/m2. Admit wt 88kg, IBW: 83.64 kg ESTIMATED NEEDS: Healing, GI Calories: 2200-2700kcal/day (25-30kcal/kg) Protein: 105-135kcal/day (1.2-1.5g/kg) Fluid: Approx. 2700 mL (30 mL/kg BW) NUTRITION DIAGNOSIS: 1) Inadequate oral intake related to altered GI function, as evidenced by colectomy/colostomy, NPO status - PERSISTS. 2) Chew/swallow difficulty related to ams/weakness as evidence by need for stimulation diet per ST--PERSISTS INTERVENTION: 1) Continue to advance diet per ST. Will add Magic Cup on all trays to maximize kcal/pro intake while on stim diet. 2) If pt is not able to tolerate PO intake, recommend TF be considered. Recommend Vital 1.5 start at 10ml/hr and advance by 10ml q 6 hrs until reach goal rate of 75ml/hr to provide 2587kcal and 115g pro (100% estimated needs). If no IVF, flush 95ml q 2 hrs. MONITOR/EVALUATE: PO intake, ST, labs, GI/nutrition status. Follow per high nutrition risk guidelines.
--- NOTE | 2017-04-07 13:34 | DRSVH ---
PROCEDURE: MR ABDOMEN MRCP INDICATIONS: Rule out choledocolithiasis TECHNIQUE: Coronal HASTE through the abdomen, axial 2-D FLASH in- and [id number], and breath-hold T2 FSE with fat saturation through the biliary system and pancreas. Oblique coronal and axial thin-slice HASTE, radial thick-slab HASTE centered on the extrahepatic bile ducts. Intravenous secretin: Not requested. COMPARISON: Abdomen ultrasound 04/07/2017; nuclear HIDA scan 04/05/2017; abdomen ultrasound 04/04/2017; CT abdomen and pelvis 04/03/2017 FINDINGS: Image quality: Image quality is suboptimal secondary to motion artifact Pancreas and biliary system: Intra- and extra-hepatic biliary ducts are non dilated. Pancreas is no rmal in morphology, without adjacent soft tissue edema. Pancreatic duct is normal in caliber, withou t developmental anomalies. Gallbladder contains gallstones.. Other solid organs: Liver and spleen are normal in size. No adrenal nodules. The right kidney is no t seen. The left kidney contains a 2.9 cm exophytic cyst anterolaterally. Nodes and vessels: No retroperitoneal or mesenteric adenopathy by size criteria. Aorta and inferior vena cava are normal in size. Bowel and peritoneum: Unenhanced bowel loops are normal in caliber. No free fluid. Lung bases: No basal pleural effusions. Heart size is normal. Bones and soft tissues: No ventral hernias. Bone marrow is of normal overall signal. Compression fr acture L1 shows nearly complete loss of signal IMPRESSION: 1. Cholelithiasis with at least 2 stones in the gallbladder neck. No marked enlargement of the gallbl adder or apparent wall thickening. No pericholecystic inflammation. 2. Intrahepatic and extrahepatic bile ducts are normal in caliber. No filling defects are demonstrate d. 3. Right kidney is absent. Left kidney appears normal noting exophytic cyst laterally 4. Pathologic fracture L1 . Dictated by: Brayden Denise M.D. on 04/07/2017 at 13:10 Approved by: Brayden Denise M.D. on 04/07/2017 at 13:32
[2017-04-07 14:04] LABS: BASOPHILS % (AUTO) 0.6 % (0-3); EOSINOPHILS % (AUTO) 7.1 % (0-5); MONOCYTES % (AUTO) 7.8 % (4-12); Mean Corpuscular Hemoglobin 30.8 pg (27.0-35.0); Mean Corpuscular Volume 97.7 fL (81-100); NEUTROPHILS % (AUTO) 73.3 % (40-74); Platelet Count 730 bil/L (150-400)
--- NOTE | 2017-04-07 14:46 | DRSVH ---
PROCEDURE: US ABDOMEN, LIMITED ([id number]) INDICATIONS: Severe and worsening cholestatic hepatitis TECHNIQUE: Real-time focused scanning was performed of the abdomen, with image documentation. COMPARISON: [facility], , ABDOMEN LTD, 04/04/2017, 14:55. FINDINGS: Liver is diffusely increased in echogenicity. No focal hepatic abnormalities identified. Normal hepatic size. Gallstones present in the lateral wall is thickened measuring 4.0 mm and mild edema is present. No intrahepatic ductal dilatation. Extrahepatic bile duct is not well-seen. IMPRESSION: 1. Increased hepatic echogenicity noted likely related to fatty infiltration of the liver but other s ources of hepatocellular disease cannot be excluded. Recommend clinical correlation. 2. Cholelithiasis with thickened and mildly edematous gallbladder wall which may be related to develo ping cholecystitis. Correlate clinically. Dictated by: Abiodun LINDSEY Interpreted: Vanessa Torres MD on 04/07/2017 at 10:14 Approved by: Vanessa Torres M.D. on 04/07/2017 at 14:43
--- NOTE | 2017-04-07 17:57 | PCM.PNMED ---
Subjective Date of Service Apr 07, 2017 Subjective Subjective: Patient remains progressively confused. He continues to be pleasant and cooperative. Events Overnight: No acute events overnight. ROS: Denies fever/chills, nausea/vomiting, headache, weakness, abdominal pain, chest pain, shortness of breath, increased swelling in hands or feet. Exam Vital Signs Vital Sign - Last Date Time Temp Pulse Resp B/P Pulse Ox O2 Delivery O2 Flow Rate FiO2 04/07/17 16:48 36.6 101 22 111/77 96 Room Air 04/05/17 00:07 04/02/17 04:41 40 Intake and Output 04/06/17 04/06/17 04/07/17 Cumulative From/Thru 15:00 23:00 07:00 03/24/17 14:24 - 04/07/17 06:57 Intake Total 50 ml 759 ml 16078 ml Output Total 1050 ml 900 ml 64108 ml Balance -1000 ml -141 ml 3607 ml Intake Oral 50 ml 0 ml 50 ml IV Total 759 ml 64388 ml Tube Feeding 40 ml TPN/PPN 41716 ml Tube Irrigant 120 ml Output Urine Total 1050 ml 800 ml 53427 ml Stool Total 100 ml 1020 ml Gastric Drainage Total 4260 ml Drainage Total 1180 ml Estimated Blood Loss 120 ml # Bowel Movements 1 Exam General: Extubated, breathing under own power, responsive to verbal stimulation , talking in phrases HEENT: Normocephalic, atraumatic. External ears without defect. Pupils equal, round, and reactive to light and accommodation. Anicteric sclerae, moist conjunctivae. IJ removed Cardiovascular: Regular rate and rhythm with no murmurs, rubs, or gallops appreciated Pulmonary: Patient is currently on breathing under his own power, very coarse breath sounds with loud rhonchi, no rales, no wheezes Abdomen: Bowel tones present. Soft, slightly distended, non-tender, ostomy putting out brown fluid. Well-healing incision with the superior portion closed with radha, the inferior portion draining appropriately. ARCELIA drain in place minor output. Extremities: No clubbing, cyanosis, edema, decreased color and warmth of the left leg compared to right. Pulses intact. Skin: Normal temperature, turgor, and texture; no rash, ulcers, or subcutaneous nodules appreciated. Neurological: Slurred speech with daily improvement. Cranial nerves grossly intact. Patient appears to have normal movement of arms and legs Psychiatric: Patient appears upbeat, normal mood and affect. Patient remains progressively confused, with multiple reported hallucinations. IVs and Medications IV Fluids 800 mL normal saline delivered with IV medications. Medications Reviewed: Medications were reviewed in detail Lab and Diagnostics Result Diagram: 04/07/17 1355 04/07/17 1355 Microbiology Blood culture 2/3 bottles positive for Gram + cocci X-Rays, CTs and MRIs (03/24/17) X-RAY CHEST ONE VIEW, PORTABLE IMPRESSION: No acute pulmonary process. Dictated and approved by: Windy Larsen M.D. on 03/24/2017 at 14:05 (03/24/17) CT ANGIO CHEST PULMONARY EMBOLISM IMPRESSION: 1. No acute pulmonary embolus. 2. 4 mm groundglass nodule. No prior comparisons are available. Please see followup guidelines below. 3. Please see detailed description of abdominal findings on the associated CT of the abdomen from the same date. ADDENDUM: Fleischner Society criteria for SOLID lung nodule followup. Nodule size (mm)Low-risk patientHigh-risk [id number] follow-up neededFollow-up at 12 mo; if no change, no further follow-up>[id number] CT at 12 mo; if no change, no further follow-up needed.Initial follow-up CT at 6-12 mo, then 18-24 mo if no change. >6-8Initial follow-up CT at 6-12 mo, then 18-24 mo if no change. Initial follow-up CT at 3-6 mo, then 9-12 mo and 24 mo if no change. > 8Follow-up CT at 3, 9, 24 mo. Or PET and/or biopsy.Same as for low-risk pts. Fleischner Society criteria for SUB-SOLID lung nodule followup. Solitary pure ground-glass nodules5 mm or lessNo followup needed. >5 mm3 mo follow-up CT to confirm persistence. Then annual CT for 3 years. Part-solid nodules3 mo follow-up CT to confirm persistence. If persistent with solid component <5 mm, annual CT for at least 3 years. If solid component is 5 mm or more, biopsy or surgical resection. Consider PET-CT for lesions > 10 mm. Multiple sub-solid nodulesPure ground glass nodules [address] at 2 and 4 years. Pure ground glass nodules >5 mm without dominant lesion. [address] to confirm persistence, then annual followup CT for at least 3 years. Dominant nodule(s) with part-solid or solid component. [address] to confirm persistence. If persistent, consider biopsy or surgical resection, carlito if lesions have >5 mm solid component. Dictated and approved by: Vanessa Torres M.D. on 03/24/2017 at 16:23 (03/24/17) CT ABDOMEN AND PELVIS WITH CONTRAST IMPRESSION: 1. Perforated acute diverticulitis with intra-abdominal abscess as above. Given the location posterior to the sigmoid colon and the bladder, this is likely not amenable to percutaneous drainage. Surgical consultation recommended. 2. Multiple foci of pneumoperitoneum. It is unclear whether there is a solitary perforated region of the sigmoid colon in the region of the abscess or if there may be a second bowel perforation more proximally in the left lower quadrant.These findings were discussed with Dr. Moreno at 4:27 PM on 03/24/17. 3. 1.0 cm diameter cystic lesion within the body of the pancreas. This is new when compared with the prior study dated 09/16/16. Differential considerations include both neoplastic and nonneoplastic cystic lesions. 4. Cholelithiasis. No acute cholecystitis. 5. Severe wedge compression deformity at L1 likely pathologic in nature given the expansile lytic lesion in this vertebral body on the study dated 09/16/16. Dictated and approved by: Vanessa Torres M.D. on 03/24/2017 at 16:24 X-RAY CHEST ONE VIEW, PORTABLE IMPRESSION: New ET tube, enteric tube, and left-sided IJ CVC in expected positions. New left pleural effusion with left basilar atelectasis. Dictated by: Bang Chung M.D. on 03/25/2017 at 7:54 Approved by: Bang Chung M.D. on 03/25/2017 at 7:56 X-RAY CHEST ONE VIEW, PORTABLE IMPRESSION: Decreased lung volumes, with patchy left midlung atelectasis. Dictated by: Darius Molina M.D. on 03/26/2017 at 8:30 Approved by: Darius Molina M.D. on 03/26/2017 at 8:33 CT ABDOMEN AND PELVIS WITH CONTRAST IMPRESSION: 1. Stable low density fluid collection around the surgical drain when compared with the study dated 03/30/17. No definite rim enhancement to suggest organizing abscess. 2. Decreased pleural effusions and consolidation at the lung bases are with the prior study. Dictated by: Vanessa Torres M.D. on 04/03/2017 at 15:29 X-RAY CHEST ONE VIEW, PORTABLE IMPRESSION: Persistent left basilar airspace opacity consistent with atelectasis versus aspiration or infection. Dictated by: Abiodun LINDSEY Interpreted: Diane Celeste MD on 04/05/2017 at 11:23 Approved by: Diane Celeste MD, PhD on 04/05/2017 at 12:25 X-RAY CHEST ONE VIEW, PORTABLE IMPRESSION: Persistent left basilar airspace opacity consistent with atelectasis versus aspiration or pneumonia. Dictated by: Abiodun LINDSEY Interpreted: Vanessa Torres MD on 04/06/2017 at 9:10 Approved by: Vanessa Torres M.D. on 04/06/2017 at 9:28 Additional Diagnostics Arterial Blood Gas DateTimeAnalyzed 07:18:35 -_ pH ____7.563 - 7.350 7.450 pCO2 ___28.1__ -mmHg 35.0 45.0 pO2 157 -mmHg 69.0 116 HCO3- ___25.3__ -mmol/L 22.0 26.0 ABE ____2.9__ -mmol/L -2.0 2.0 tHb ____9.8__ -g/dL 12.0 18.0 US ABDOMEN, LIMITED IMPRESSION: Cholelithiasis with prominent gallbladder wall measuring 4.2 mm. Developing cholecystitis cannot be excluded and clinical correlation is recommended. Dictated by: Abiodun LINDSEY Interpreted: Ace Sesay MD on 04/04/2017 at 15:55 Approved by: Ace Sesay M.D. on 04/04/2017 at 16:11 NM HIDA SCAN WITH CCK IMPRESSION: 1. Normal filling of gallbladder. No evidence for acute cholecystitis. 2. Normal contractile response of gallbladder to CCK infusion. Dictated by: Ignacia Melgar M.D. on 04/05/2017 at 17:21 Approved by: Ignacia Melgar M.D. on 04/05/2017 at 17:22 US VENOUS LEG DUPLEX BILATERAL IMPRESSION: No DVT found. Dictated by: Jimbo Timmons M.D. on 04/06/2017 at 18:37 Approved by: Jimbo Timmons M.D. on 04/06/2017 at 18:37 US ABDOMEN, LIMITED IMPRESSION: 1. Increased hepatic echogenicity noted likely related to fatty infiltration of the liver but other sources of hepatocellular disease cannot be excluded. Recommend clinical correlation. 2. Cholelithiasis with thickened and mildly edematous gallbladder wall which may be related to developing cholecystitis. Correlate clinically. Dictated by: Abiodun LINDSEY Interpreted: Vanessa Torres MD on 04/07/2017 at 10: 14 Approved by: Vanessa Torres M.D. on 04/07/2017 at 14:43 MR ABDOMEN MRCP IMPRESSION: 1. Cholelithiasis with at least 2 stones in the gallbladder neck. No marked enlargement of the gallbladder or apparent wall thickening. No pericholecystic inflammation. 2. Intrahepatic and extrahepatic bile ducts are normal in caliber. No filling defects are demonstrated. 3. Right kidney is absent. Left kidney appears normal noting exophytic cyst laterally 4. Pathologic fracture L1 . Dictated by: Brayden Denise M.D. on 04/07/2017 at 13:10 Approved by: Brayden Denise M.D. on 04/07/2017 at 13:32 . Assessment & Plan 71 year old gentleman with a history of CAD with 2 stents, COPD, hyperlipidemia , and right-sided renal cell carcinoma (s/p nephrectomy in October 2016) currently treated with Pazopanib presenting to the CCU hypotensive and was initially intubated status post sigmoid colectomy with descending colostomy for perforated diverticulitis. Patient continues to still have unexplained fevers is currently being worked up for this. Patient continues to progress from a neurological and psychiatric standpoint. Swallow evaluation was ordered 04/06 suggesting 5-10 bites of highly nutritional supplementation. As patient progresses from this perspective he will likely require SNF placement once hematologically stable. Fevers of unknown origin, not present on admission, active - Possibly due to progressive neoplasm, will attempt to contact patient's oncologist to ensure that he is on the correct medications for his condition. - Ultrasounds of the lower limbs conducted to rule out DVT, negative - Per ID, Micafungin discontinued as this can potentially cause elevations in temperature - UA culture reflexed, pending results - CT, ultrasound suggests cholelithiasis with possible cholecystitis, other results as above - HIDA scan suggests no cholecystitis at this time, other results as above - MRCP shows no evidence of cholecystitis or choledocholithiasis results as above - TSH negative - ID following, recommends removing the PICC line, and discontinuing meropenem as this is unlikely to be a bacterial infection. - General surgery following, continue to discuss possible interventions - GI following, due to negative MRCP suggests cholecystostomy, no ERCP indicated at this time. Acute Encephalopathy, not present on admission, active - As the patient continues to be more alert and vocal postextubation, his level of confusion becomes more apparent. The patient continues to have multiple hallucinations daily. He remains pleasant and cooperative, however he does not appear to understand completely where he is, what year it is, and has no recollection of current events. - Possible infectious source, or inflammatory process, as he continues to have fevers of unknown origin. Continue workup for possible infection/inflammation - Possible cancerous progression with brain metastases, however this has not been demonstrated on any brain scans obtained thus far. Consider MRI if not improving. - Possible Hepatic encephalopathy based on elevations in liver enzymes, although unlikely. Ammonia levels pending. - Possible anoxic brain injury at some point between his initial surgery and extubation. - Continue to monitor Normocytic anemia, present on admission, active - Hemoglobin slowly trending down since admission - Morning hemoglobin 7.8 on 04/05, H&H repeated at 8.1 - Blood typed and crossed, proceed with transfusion if patient is less than 8.0 Elevated Alk Phos, POA, acute. Active Likely due to cholestasis and TPN, patient will begin oral feedings on 04/06 continue to monitor. -Patient has had high normal Alk Phos since admission, numbers continue to rise -Ultrasound of the abdomen shows a prominent gallbladder (4.2 mm) Developing cholecystitis cannot be excluded. -GGT 520 consistent with cholecystitis and/or common bile duct obstruction -HIDA scan obtained on 04/05 shows no evidence of cholecystitis. Results as above -MRCP shows no evidence of cholecystitis or choledocholithiasis Results as above -GI following, due to negative MRCP, suggests cholecystostomy, no ERCP indicated at this time. Perforated diverticulitis with intra-abdominal abscess. S/P sigmoid colectomy and descending colostomy, stable -No longer on sedation -Ostomy output appropriate -[place] and ARCELIA drain should remain for now, surgery continues to follow -IV meropenem -Repeat CT abdomen 04/03 shows resolving pleural effusions, mild abdominal fluid with no evidence of abscess. Acute Hypoxic Respiratory Failure due to surgery and COPD, chronic. Present on admission. Resolved -Pt intubated and sedated in the CCU. Extubated on 03/31 -Patient currently breathing well on room air Coronary artery disease, chronic. Present on admission. stable. -Pt with prior IA and two stents. Presented with mild chest pain with negative cardiac enzymes and no acute ischemic changes noted on ECG. -Continue home simvastatin and aspirin when able -Continuous cardiac monitoring. Renal cell carcinoma of right kidney, chronic. Presumed stable. -Pt is s/p nephrectomy in October 2016, previously treated with Pazopanib and dexamethasone. -CT abd/pelvis showed a renal cyst as above. -Resume oral medications when able Diabetes mellitus, type 2, chronic. Present on admission. Presumed stable. -Current outpatient therapy is Metformin 500mg PO BID -Hold Metformin -Continue tight glucose control. Per recommendations of general surgery if > 180 use insulin drip. Hypotension, acute. Resolved -Vital signs currently stable -TPN started on 03/27 Continue TPN Hypertension, chronic. Present on admission. Stable -Blood pressures remain stable -Held home antihypertensives: Lisinopril 40mg PO daily, Metoprolol succinate 50mg PO daily - IV metoprolol 2.5 mg every 4 Hyperlipidemia, chronic. Present on admission. Presumed stable. -Continue home dose statin (Simvastatin 20mg PO HS) when able GI Prophylaxis: H2 saw VTE Prophylaxis: Sub-Q Heparin (Unfractionated), SCDs VTE Mechanical Devices: Intermittant Pneumatic CD Resuscitation Status: CPR: Attempt Resuscitation Time spent 30 minutes Attending Statement I have seen and evaluated the patient at bedside in addition to directly supervising care provided by resident physician. I agree with above documentation. Mode Suggs DO Apr 07, 2017 17:57 Jose Deal DO Apr 08, 2017 08:03
--- NOTE | 2017-04-07 21:15 | CONS ---
[address] [address] CONSULTATION REPORT PATIENT: JOSAFAT SOLIS : 1945 MR#: [id number] ADMIT: 03/24/2017 JOB ID: [id number] DATE OF SERVICE: REASON FOR CONSULTATION: Abnormal liver function tests that have developed in a patient with no known history of liver disease since he has been in the hospital. HISTORY OF PRESENTING ILLNESS: The patient is a 71-year-old gentleman whose past medical history is significant for renal cell carcinoma, COPD, coronary artery disease, hyperlipidemia, hypertension, type 2 diabetes, who presented to the hospital on March 24 with a syncopal episode. Prior to his admission, the patient had been having left-sided abdominal pain. Following admission to the hospital, he underwent CT scan where he was found to have a perforated sigmoid diverticula and active diverticulitis. He was taken to the operating room by Dr. Sagastume where he underwent exploratory laparotomy, sigmoid colectomy, and descending colostomy with a Diallo procedure. I have been asked to see him regarding elevated liver function tests. Today, his AST is 168, and his ALT is 163, with an alkaline phosphatase of 1675 with a normal total bili. On admission, he had an AST of 58, ALT of 124, with an total bilirubin of 1.4. However, following surgery, his LFTs did normalize completely with the exception of a depressed albumin of 1.4. His liver function tests had been stable until March 27 point when his bilirubin was minimally elevated at 1.5. This slowly progressed and reached as high as 3.2 and during this time his aminotransferases slowly increased. As his aminotransferase continued to increase, his bilirubin however continued to normalize. The patient is a poor historian as he appears to be confused and unable to ascertain whether he has any history of liver disease or has been told that he has had liver disease in the past. During his hospital stay he has been on TPN which was recently discontinued, as well as multiple medications. Patient is tolerating a soft mechanical diet per nursing and is not having any episodes of nausea, vomiting or complaining of abdominal pain per nursing. His history is obtained from the chart and from nursing staff as patient is a poor historian. PAST MEDICAL HISTORY: Significant for renal cell cancer for which he is status post nephrectomy and he currently on pazopanib. Also significant for coronary artery disease, COPD, hyperlipidemia, hypertension, type 2 diabetes. PAST SURGICAL HISTORY: Includes appendectomy. FAMILY HISTORY: Noncontributory. SOCIAL HISTORY: Denies any history of alcohol abuse. He was a previous smoker but quit approximately seven years ago. CURRENT MEDICATIONS: Include: 1. Meropenem. 2. Nitroglycerin p.r.n. 3. Metoprolol 2.5 mg q.4 h. IV push. 4. Dilaudid 0.5 mg q.2 h. p.r.n. pain. 5. Heparin 5000 units subcu q.8. 6. Ondansetron 4 mg q.4 h. IV push. 7. Regular insulin per protocol. 8. Patient previously had been on micafungin. However, that was discontinued on April 06. 9. He had also been on Zosyn, which was discontinued April 03. PHYSICAL EXAMINATION: His current temperature is 36.6. His pulse is 101. Blood pressure is 111/77. Respiratory rate is 22. O2 saturation is 96% on room air. Generally, he is an elderly-appearing gentleman, who appears to be slightly confused. He is oriented to person only. He is not oriented to place and time. HEENT: No pallor. No icterus. Oropharynx is clear. Chest exam: He has some coarse breath sounds bilaterally. Cardiovascular exam: S1, S2 heard. Abdomen: He has a colostomy bag on the left side that has brown stool. He has diffuse tenderness in the left upper quadrant, epigastrium, and right upper quadrant. Bowel sounds are appreciated. There is no rebound or guarding. Extremities with trace edema. LABORATORY DATA: Today, sodium 138, potassium 4.9, chloride 107, CO2 of 19, BUN of 29, creatinine of 0.72. Lactic acid of 0.9. Calcium is eight. His total bili is 1. AST is 168. ALT is 163. Alkaline phosphatase is 1675. Total protein is 4.9. Albumin is 2.9. His INR from April 06 was 0.96. PTT was 10.3. His white blood cell count is 9.4, hemoglobin 8.4, hematocrit of 25.7, MCV of 97.7, platelet count of 732. His imaging tests, which included a CT abdomen and pelvis on March 24 shows perforated acute diverticulitis with intra-abdominal abscess, multi-foci pneumoperitoneum. A 1 cm diameter cystic lesion within the body of the pancreas. Cholelithiasis without evidence of acute cholecystitis and severe wedge compression deformity at L1. He then had a subsequent CT of the abdomen on March 30, which showed small bilateral pleural effusions, no evidence of bowel obstruction or colitis. Cystic mass in the body of the pancreas which appeared to have slightly decreased and pneumoperitoneum which is likely postsurgical. CT abdomen was then again repeated on April 03, which showed stable low-density fluid collection around the surgical drain. No definite evidence to suggest organizing abscess. Decreased pleural effusions and pancreas enhanced normally. The patient underwent an ultrasound April 04 which showed cholelithiasis with prominent gallbladder wall measuring 4.2 mm. Developing cholecystitis could not be excluded. This then led to a HIDA scan which showed a normal filling of the gallbladder without evidence of acute cholecystitis and normal contrast flow response to CCK as he had an ejection fraction of 96.7% and then subsequently he has had an MRCP which shows cholelithiasis with at least two stones in the gallbladder neck, but there is no enlargement of the gallbladder or apparent wall thickening and no pericholecystic inflammation, no intrahepatic or extrahepatic bile duct abnormality, and no filling defects demonstrated within common bile duct and pathological fracture at L1 and right kidney is absent. ASSESSMENT AND PLAN: 1. A 71-year-old gentleman who presents with a perforated sigmoid diverticulitis, who has undergone exploratory laparotomy, Diallo procedure with a left colostomy, who has had worsening liver function tests. I suspect this is multifactorial as a result of medications, as well as total parenteral nutrition and infection. He has recently been discontinued on several medications as well as TPN, and therefore, would recommend continuing to follow the trend in his LFTs. We have ruled out at least an extrahepatic biliary obstruction with ultrasound and MRCP. He does not have evidence of cholecystitis. He is tolerating p.o. and HIDA scan shows filling of the gallbladder. I believe the thickness of the gallbladder seen on ultrasound may be likely a result of his low protein state. I would continue to discontinue all nonessential medications. Along with following his LFTs, I would recommend checking PT/INR daily. 2. As for his altered mental status, I am unsure as to the etiology of this. However, would consider avoiding narcotics and consider trial of lactulose to see if this improves. 3. Normocytic anemia. He does not have any evidence of overt bleeding. However, would continue to follow H and H and transfuse blood products as needed. 4. Pancreatic body cyst seen on imaging. Would recommend repeat CT pancreas protocol as an outpatient. Thank you for allowing me to participate in the patient's care. If you should have any further questions, please not hesitate to contact me.
[2017-04-08] VITALS (8 sets, daily range): BP systolic 106–154; BP diastolic 72–91; PULSE 101–138; RESP 20–35; O2SAT 93–99
[2017-04-08] MEDS: Heparin 5,000 Unit/mL Inj SUBQ SCH ×3 (00:37→17:25)
[2017-04-08] MEDS: Meropenem Inj 2,000 MG in 0.9% Sodium Chloride 100 ML IV SCH ×3 (00:37→17:38)
[2017-04-08] MEDS: MeTOProlol 1 mg/mL 5 mL Inj IVPUSH SCH ×6 (00:37→20:39)
[2017-04-08 04:38] LABS: BASOPHILS % (AUTO) 0.6 % (0-3); EOSINOPHILS % (AUTO) 8.5 % (0-5); MONOCYTES % (AUTO) 9.1 % (4-12); Mean Corpuscular Hemoglobin 30.5 pg (27.0-35.0); NEUTROPHILS % (AUTO) 67.6 % (40-74); Platelet Count 733 bil/L (150-400)
--- NOTE | 2017-04-08 05:40 | NUR ---
Mentation Patient alert to self, unaware of time or location. Frequently stated desire to "get up and shower" or "get up and get going." Reoriented to situation without evidence of patient understanding. Attempted x1 this shift to get out of bed; patient bridged on pillows and fell asleep promptly after repositioning. VSS, tele SR 80s-110s. Q2H turns in place. Pt intermittently resting between interventions. Hemoglobin this AM 7.5; made aware, no new orders at this time.
[2017-04-08 08:33] LABS: Unsaturated Iron Binding 137.6 ug/dL
--- NOTE | 2017-04-08 10:05 | PCM.PNSURG ---
Subjective Date of Service: Apr 08, 2017 Visit Information: Perforated Diverticulitis s/p tony procedure 03/24/2017 Post-Op Day # 15 Date of Admission: Mar 24, 2017 at 17:07 Hospital Day # 16 Subjective: awake, hard to understand Objective Vital Sign- Last 8 Hours Date Time Temp Pulse Resp B/P Pulse Ox O2 Delivery O2 Flow Rate FiO2 04/08/17 09:01 37.1 102 30 138/79 93 Room Air 04/08/17 08:58 110 04/08/17 05:43 109 04/08/17 04:12 36.8 101 25 148/79 99 Room Air Intake and Output- Last 8 Hour 04/08/17 Cumulative From/Thru 07:00 03/24/17 14:24 - 04/08/17 06:31 Intake Total 348 ml 25476 ml Output Total 450 ml 88948 ml Balance -102 ml 2805 ml Intake Oral 50 ml IV Total 348 ml 21648 ml Tube Feeding 40 ml TPN/PPN 65353 ml Tube Irrigant 120 ml Output Urine Total 300 ml 12989 ml Stool Total 1120 ml Gastric Drainage Total 4260 ml Drainage Total 150 ml 1330 ml Estimated Blood Loss 120 ml # Bowel Movements 1 Abdomen: Soft, Other (stoma with output, VAC intact) Result Diagram: 04/08/17 0430 04/08/17 0430 Assessment & Plan Impression Improving slowly Problems: Plan Fever curve & LFTs improving Regular diet Continue abx, Keep ARCELIA for now VAC changes 3 times a week Will continue to follow closely Pain Management: Juan Linder MD Apr 08, 2017 10:05
--- NOTE | 2017-04-08 11:19 | NUR ---
NUTRITION FOLLOW UP: ASSESS: 71 YO M admitted to CCU with perforated diverticulitis, pneumoperitoneum with peritonitis, s/p exploratory laparotomy with sigmoid/descending colon resection, Diallo's and end-descending colostomy. Pt extubated 03/31. TPN was tapered off 04/06. He passed swallow for for stimulation diet texture; however, per case management rounds this morning, the patient has no appetite and is not eating, despite nursing encouragement. He is actively hallucinating. Surgery noting fever curve and LFT's improved due to cessation of TPN; ARCELIA to remain in for now. Wound vac changes continue three times per week. PMHx: Renal cell cancer with current chemotherapy, immunosuppression, R. nephrectomy, CAD, COPD, HTN, dyslipidemia, type 2 diabetes, hiatal hernia, GI bleed. DIET: Stimulation. PO intake 0- 25% trays, insufficient to meet nutrient needs to any significant extent. LABS: Reviewed. Cr 0.65, Ca 7.9, AST 113, ALT 131, Alk Phos 1455, Alb 2.2. MEDICATIONS: Reviewed. Metoprolol. GI: Stool via colostomy- 200 ml output 04/07. SKIN: [employer] following. ANTHROPOMETRICS: Current Wt: 86.0 kg, BMI: 25.0 kg/m2. Admit wt 88kg, IBW: 83.64 kg ESTIMATED NEEDS: Healing, GI Calories: 2200-2700kcal/day (25-30kcal/kg) Protein: 105-135kcal/day (1.2-1.5g/kg) Fluid: Approx. 2700 mL (30 mL/kg BW) NUTRITION DIAGNOSIS: 1) Inadequate oral intake related to altered GI function, as evidenced by colectomy/colostomy, stimulation diet refusal - PERSISTS. 2) Chew/swallow difficulty related to AMS/weakness as evidenced by need for stimulation diet per ST - PERSISTS. INTERVENTION: 1) Continue to advance diet per ST. Will continue Magic Cup on all trays to maximize kcal/pro intake while on stim diet. 2) As patient remains full code, strongly recommend enteral feeding be considered. Recommend Vital 1.5 initiated at 10 ml/hr and advanced by 10ml q 6 hrs to goal rate of 75ml/hr to provide 2587kcal and 115g pro (100% estimated needs). If no IVF, flush 95ml q 2 hrs. MONITOR/EVALUATE: PO intake, diet advance / tolerance, labs, GI/nutrition status. Follow per high nutrition risk guidelines.
[2017-04-08] MEDS ORDERED: Ferric Sod Gluc Complex Inj 125 MG in 0.9% Sodium Chloride 100 ML IV ONE (12:45)
--- NOTE | 2017-04-08 13:27 | PCM.PNMED ---
Subjective Date of Service Apr 08, 2017 Subjective Subjective: Patient continues to have waxing and waning encephalopathy, he states that he is currently doing well. His main concerns with his care at this point are that he would like to move around more often and he would like a cup of coffee. Events Overnight: No acute events overnight. ROS: Denies fever/chills, nausea/vomiting, headache, weakness, abdominal pain, chest pain, shortness of breath, increased swelling in hands or feet. Exam Vital Signs Vital Sign - Last Date Time Temp Pulse Resp B/P Pulse Ox O2 Delivery O2 Flow Rate FiO2 04/08/17 11:46 36.8 138 30 106/91 94 Room Air 04/05/17 00:07 04/02/17 04:41 40 Intake and Output 04/07/17 04/07/17 04/08/17 Cumulative From/Thru 15:00 23:00 07:00 03/24/17 14:24 - 04/08/17 06:31 Intake Total 0 ml 348 ml 34162 ml Output Total 700 ml 450 ml 28717 ml Balance -700 ml -102 ml 2805 ml Intake Oral 0 ml 50 ml IV Total 348 ml 90196 ml Tube Feeding 40 ml TPN/PPN 83870 ml Tube Irrigant 120 ml Output Urine Total 600 ml 300 ml 93285 ml Stool Total 100 ml 1120 ml Gastric Drainage Total 4260 ml Drainage Total 150 ml 1330 ml Estimated Blood Loss 120 ml # Bowel Movements 1 Exam General: Extubated, breathing under own power, responsive to verbal stimulation , talking in phrases HEENT: Normocephalic, atraumatic. External ears without defect. Pupils equal, round, and reactive to light and accommodation. Anicteric sclerae, moist conjunctivae. Cardiovascular: Regular rate and rhythm with no murmurs, rubs, or gallops appreciated Pulmonary: Patient is currently on breathing under his own power, very coarse breath sounds with loud rhonchi, no rales, no wheezes Abdomen: Bowel tones present. Soft, slightly distended, non-tender, ostomy putting out brown fluid. Extremities: No clubbing, cyanosis, edema, decreased color and warmth of the left leg compared to right. Pulses intact. Skin: Normal temperature, turgor, and texture; no rash, ulcers, or subcutaneous nodules appreciated. Neurological: Slurred speech with daily improvement. Cranial nerves grossly intact. Patient appears to have normal movement of arms and legs Psychiatric: Patient appears upbeat, normal mood and affect. Patient remains confused, with multiple reported hallucinations. IVs and Medications IV Fluids 350 mL normal saline delivered with IV medications. Medications Reviewed: Medications were reviewed in detail Lab and Diagnostics Result Diagram: 04/08/17 0430 04/08/17 043 Microbiology Blood culture 2/3 bottles positive for Gram + cocci X-Rays, CTs and MRIs (03/24/17) X-RAY CHEST ONE VIEW, PORTABLE IMPRESSION: No acute pulmonary process. Dictated and approved by: Windy Larsen M.D. on 03/24/2017 at 14:05 (03/24/17) CT ANGIO CHEST PULMONARY EMBOLISM IMPRESSION: 1. No acute pulmonary embolus. 2. 4 mm groundglass nodule. No prior comparisons are available. Please see followup guidelines below. 3. Please see detailed description of abdominal findings on the associated CT of the abdomen from the same date. ADDENDUM: Fleischner Society criteria for SOLID lung nodule followup. Nodule size (mm)Low-risk patientHigh-risk [id number] follow-up neededFollow-up at 12 mo; if no change, no further follow-up>[id number] CT at 12 mo; if no change, no further follow-up needed.Initial follow-up CT at 6-12 mo, then 18-24 mo if no change. >6-8Initial follow-up CT at 6-12 mo, then 18-24 mo if no change. Initial follow-up CT at 3-6 mo, then 9-12 mo and 24 mo if no change. > 8Follow-up CT at 3, 9, 24 mo. Or PET and/or biopsy.Same as for low-risk pts. Fleischner Society criteria for SUB-SOLID lung nodule followup. Solitary pure ground-glass nodules5 mm or lessNo followup needed. >5 mm3 mo follow-up CT to confirm persistence. Then annual CT for 3 years. Part-solid nodules3 mo follow-up CT to confirm persistence. If persistent with solid component <5 mm, annual CT for at least 3 years. If solid component is 5 mm or more, biopsy or surgical resection. Consider PET-CT for lesions > 10 mm. Multiple sub-solid nodulesPure ground glass nodules [address] at 2 and 4 years. Pure ground glass nodules >5 mm without dominant lesion. [address] to confirm persistence, then annual followup CT for at least 3 years. Dominant nodule(s) with part-solid or solid component. [address] to confirm persistence. If persistent, consider biopsy or surgical resection, carlito if lesions have >5 mm solid component. Dictated and approved by: Vanessa Torres M.D. on 03/24/2017 at 16:23 (03/24/17) CT ABDOMEN AND PELVIS WITH CONTRAST IMPRESSION: 1. Perforated acute diverticulitis with intra-abdominal abscess as above. Given the location posterior to the sigmoid colon and the bladder, this is likely not amenable to percutaneous drainage. Surgical consultation recommended. 2. Multiple foci of pneumoperitoneum. It is unclear whether there is a solitary perforated region of the sigmoid colon in the region of the abscess or if there may be a second bowel perforation more proximally in the left lower quadrant.These findings were discussed with Dr. Moreno at 4:27 PM on 03/24/17. 3. 1.0 cm diameter cystic lesion within the body of the pancreas. This is new when compared with the prior study dated 09/16/16. Differential considerations include both neoplastic and nonneoplastic cystic lesions. 4. Cholelithiasis. No acute cholecystitis. 5. Severe wedge compression deformity at L1 likely pathologic in nature given the expansile lytic lesion in this vertebral body on the study dated 09/16/16. Dictated and approved by: Vanessa Torres M.D. on 03/24/2017 at 16:24 X-RAY CHEST ONE VIEW, PORTABLE IMPRESSION: New ET tube, enteric tube, and left-sided IJ CVC in expected positions. New left pleural effusion with left basilar atelectasis. Dictated by: Bang Chung M.D. on 03/25/2017 at 7:54 Approved by: Bang Chung M.D. on 03/25/2017 at 7:56 X-RAY CHEST ONE VIEW, PORTABLE IMPRESSION: Decreased lung volumes, with patchy left midlung atelectasis. Dictated by: Darius Molina M.D. on 03/26/2017 at 8:30 Approved by: Darius Molina M.D. on 03/26/2017 at 8:33 CT ABDOMEN AND PELVIS WITH CONTRAST IMPRESSION: 1. Stable low density fluid collection around the surgical drain when compared with the study dated 03/30/17. No definite rim enhancement to suggest organizing abscess. 2. Decreased pleural effusions and consolidation at the lung bases are with the prior study. Dictated by: Vanessa Torres M.D. on 04/03/2017 at 15:29 X-RAY CHEST ONE VIEW, PORTABLE IMPRESSION: Persistent left basilar airspace opacity consistent with atelectasis versus aspiration or infection. Dictated by: Abiodun LINDSEY Interpreted: Diane Celeste MD on 04/05/2017 at 11:23 Approved by: Diane Celeste MD, PhD on 04/05/2017 at 12:25 X-RAY CHEST ONE VIEW, PORTABLE IMPRESSION: Persistent left basilar airspace opacity consistent with atelectasis versus aspiration or pneumonia. Dictated by: Abiodun LINDSEY Interpreted: Vanessa Torres MD on 04/06/2017 at 9:10 Approved by: Vanessa Torres M.D. on 04/06/2017 at 9:28 Additional Diagnostics Arterial Blood Gas DateTimeAnalyzed 07:18:35 -_ pH ____7.563 - 7.350 7.450 pCO2 ___28.1__ -mmHg 35.0 45.0 pO2 157 -mmHg 69.0 116 HCO3- ___25.3__ -mmol/L 22.0 26.0 ABE ____2.9__ -mmol/L -2.0 2.0 tHb ____9.8__ -g/dL 12.0 18.0 US ABDOMEN, LIMITED IMPRESSION: Cholelithiasis with prominent gallbladder wall measuring 4.2 mm. Developing cholecystitis cannot be excluded and clinical correlation is recommended. Dictated by: Abiodun LINDSEY Interpreted: Ace Sesay MD on 04/04/2017 at 15:55 Approved by: Ace Sesay M.D. on 04/04/2017 at 16:11 NM HIDA SCAN WITH CCK IMPRESSION: 1. Normal filling of gallbladder. No evidence for acute cholecystitis. 2. Normal contractile response of gallbladder to CCK infusion. Dictated by: Ignacia Melgar M.D. on 04/05/2017 at 17:21 Approved by: Ignacia Melgar M.D. on 04/05/2017 at 17:22 US VENOUS LEG DUPLEX BILATERAL IMPRESSION: No DVT found. Dictated by: Jimbo Timmons M.D. on 04/06/2017 at 18:37 Approved by: Jimbo Timmons M.D. on 04/06/2017 at 18:37 US ABDOMEN, LIMITED IMPRESSION: 1. Increased hepatic echogenicity noted likely related to fatty infiltration of the liver but other sources of hepatocellular disease cannot be excluded. Recommend clinical correlation. 2. Cholelithiasis with thickened and mildly edematous gallbladder wall which may be related to developing cholecystitis. Correlate clinically. Dictated by: Abiodun LINDSEY Interpreted: Vanessa Torres MD on 04/07/2017 at 10: 14 Approved by: Vanessa Torres M.D. on 04/07/2017 at 14:43 MR ABDOMEN MRCP IMPRESSION: 1. Cholelithiasis with at least 2 stones in the gallbladder neck. No marked enlargement of the gallbladder or apparent wall thickening. No pericholecystic inflammation. 2. Intrahepatic and extrahepatic bile ducts are normal in caliber. No filling defects are demonstrated. 3. Right kidney is absent. Left kidney appears normal noting exophytic cyst laterally 4. Pathologic fracture L1 . Dictated by: Brayden Denise M.D. on 04/07/2017 at 13:10 Approved by: Brayden Denise M.D. on 04/07/2017 at 13:32 . Assessment & Plan 71 year old gentleman with a history of CAD with 2 stents, COPD, hyperlipidemia , and right-sided renal cell carcinoma (s/p nephrectomy in October 2016) currently treated with Pazopanib presenting to the CCU hypotensive and was initially intubated status post sigmoid colectomy with descending colostomy for perforated diverticulitis. 04/08 discuss with regional oncologist who states that panzopunib and dexamethasone are non-essential medications and can be held for a total of 4-6 weeks while the patient becomes stabilized. Patient continues to be encephalopathic, waxing and waning. Consider MRI. Continue stim diet. Iron infusion given, continue to monitor H&H, transfuse if needed. Other recommendations as below. Fevers of unknown origin, not present on admission, active - Possibly due to progressive neoplasm - Ultrasounds of the lower limbs conducted to rule out DVT, negative - Per ID, Micafungin discontinued as this can potentially cause elevations in temperature - UA culture reflexed, no growth to date - CT, ultrasound suggests cholelithiasis with possible cholecystitis, other results as above - HIDA scan suggests no cholecystitis at this time, other results as above - MRCP shows no evidence of cholecystitis or choledocholithiasis results as above - TSH negative - ID following, recommends removing the PICC line, and discontinuing meropenem as this is unlikely to be a bacterial infection. - General surgery following, continue to discuss possible interventions - GI following, due to negative MRCP suggests cholecystostomy, no ERCP indicated at this time. - No fevers overnight 04/08 Acute Encephalopathy, not present on admission, active - As the patient continues to be more alert and vocal post extubation, his level of confusion becomes more apparent. The patient continues to have multiple hallucinations daily. He remains pleasant and cooperative, however he does not appear to understand completely where he is, what year it is, and has no recollection of current events. Level of encephalopathy tends to wax and wane. - Possible infectious source, or inflammatory process, as he continues to have fevers of unknown origin. Continue workup for possible infection/inflammation - Possible cancerous progression with brain metastases, however this has not been demonstrated on any brain scans obtained thus far. Consider MRI if not improving. - Possible Hepatic encephalopathy based on elevations in liver enzymes, although unlikely. Ammonia levels within normal limits. - Possible anoxic brain injury at some point between his initial surgery and extubation. - Continue to monitor Normocytic anemia, present on admission, active - Hemoglobin slowly trending down since admission - Last checked 7.5 - Stools found to be guaiac positive, however no obvious GI loss, and no other sources of bleeding noted - Patient's blood count is trending down very slowly and is unlikely to represent acute bleed. - PRBC transfusion considered however, due to slow down trend in conjunction with low serum iron, will attempt iron infusion prior to transfusion. - Patient infused with iron sodium gluconate, continue Q12 checks Elevated Alk Phos, POA, acute. Active Likely due to cholestasis and TPN, patient began oral feedings on 04/06 continue to monitor. -Patient has had high normal Alk Phos since admission, numbers went down for the first time on 04/08 -Ultrasound of the abdomen shows a prominent gallbladder (4.2 mm) Developing cholecystitis cannot be excluded. -GGT 520 consistent with cholecystitis and/or common bile duct obstruction -HIDA scan obtained on 04/05 shows no evidence of cholecystitis. Results as above -MRCP shows no evidence of cholecystitis or choledocholithiasis Results as above -GI following, due to negative MRCP, suggests cholecystostomy, no ERCP indicated at this time. -As numbers have begun to improve we will continue to monitor . Perforated diverticulitis with intra-abdominal abscess. S/P sigmoid colectomy and descending colostomy, stable -No longer on sedation -Ostomy output appropriate -[place] and ARCELIA drain should remain for now, surgery continues to follow -IV meropenem -Repeat CT abdomen 04/03 shows resolving pleural effusions, mild abdominal fluid with no evidence of abscess. Acute Hypoxic Respiratory Failure due to surgery and COPD, chronic. Present on admission. Resolved -Pt intubated and sedated in the CCU. Extubated on 03/31 -Patient currently breathing well on room air Coronary artery disease, chronic. Present on admission. stable. -Pt with prior NC and two stents. Presented with mild chest pain with negative cardiac enzymes and no acute ischemic changes noted on ECG. -Continue home simvastatin and aspirin when able -Continuous cardiac monitoring. Renal cell carcinoma of right kidney, chronic. Presumed stable. -Pt is s/p nephrectomy in October 2016, previously treated with Pazopanib and dexamethasone. -CT abd/pelvis showed a renal cyst as above. -Resume oral medications when able Diabetes mellitus, type 2, chronic. Present on admission. Presumed stable. -Current outpatient therapy is Metformin 500mg PO BID -Hold Metformin -Continue tight glucose control. Per recommendations of general surgery if > 180 use insulin drip. Hypotension, acute. Resolved -Vital signs currently stable -TPN started on 03/27 Continue TPN Hypertension, chronic. Present on admission. Stable -Blood pressures remain stable -Held home antihypertensives: Lisinopril 40mg PO daily, Metoprolol succinate 50mg PO daily - IV metoprolol 2.5 mg every 4 Hyperlipidemia, chronic. Present on admission. Presumed stable. -Continue home dose statin (Simvastatin 20mg PO HS) when able GI Prophylaxis: H2 saw VTE Mechanical Devices: Intermittant Pneumatic CD Time spent 30 minutes Attending Statement I have seen and evaluated patient at bedside in addition to directly supervising care provided by resident physician Dr Suggs for care provided on . I agree with above documentation Mode Suggs DO Apr 08, 2017 13:27 Jose Deal DO Apr 09, 2017 07:50
--- NOTE | 2017-04-08 15:27 | PCM.PNMED ---
Subjective Date of Service Apr 08, 2017 Subjective no acute events overnight states the food is horrible here in the hospital Exam Vital Signs Vital Sign - Last Date Time Temp Pulse Resp B/P Pulse Ox O2 Delivery O2 Flow Rate FiO2 04/08/17 11:46 36.8 138 30 106/91 94 Room Air 04/05/17 00:07 04/02/17 04:41 40 Intake and Output 04/07/17 04/07/17 04/08/17 Cumulative From/Thru 15:00 23:00 07:00 03/24/17 14:24 - 04/08/17 06:31 Intake Total 0 ml 348 ml 53959 ml Output Total 700 ml 450 ml 61779 ml Balance -700 ml -102 ml 2805 ml Intake Oral 0 ml 50 ml IV Total 348 ml 90054 ml Tube Feeding 40 ml TPN/PPN 74394 ml Tube Irrigant 120 ml Output Urine Total 600 ml 300 ml 58987 ml Stool Total 100 ml 1120 ml Gastric Drainage Total 4260 ml Drainage Total 150 ml 1330 ml Estimated Blood Loss 120 ml # Bowel Movements 1 Exam Gen - awake HEENT- no icterus resp- coarse breath sounds anteriorly bilaterally CVS-RRR abdomen--colostomy with brown stool, soft, minimal tenderness diffuse throughout the abdomen Lab and Diagnostics Result Diagram: 04/08/17 0430 04/08/17 0430 Microbiology Blood culture 2/3 bottles positive for Gram + cocci X-Rays, CTs and MRIs (03/24/17) X-RAY CHEST ONE VIEW, PORTABLE IMPRESSION: No acute pulmonary process. Dictated and approved by: Windy Larsen M.D. on 03/24/2017 at 14:05 (03/24/17) CT ANGIO CHEST PULMONARY EMBOLISM IMPRESSION: 1. No acute pulmonary embolus. 2. 4 mm groundglass nodule. No prior comparisons are available. Please see followup guidelines below. 3. Please see detailed description of abdominal findings on the associated CT of the abdomen from the same date. ADDENDUM: Fleischner Society criteria for SOLID lung nodule followup. Nodule size (mm)Low-risk patientHigh-risk [id number] follow-up neededFollow-up at 12 mo; if no change, no further follow-up>1-8Oytasl-st CT at 12 mo; if no change, no further follow-up needed.Initial follow-up CT at 6-12 mo, then 18-24 mo if no change. >6-8Initial follow-up CT at 6-12 mo, then 18-24 mo if no change. Initial follow-up CT at 3-6 mo, then 9-12 mo and 24 mo if no change. > 8Follow-up CT at 3, 9, 24 mo. Or PET and/or biopsy.Same as for low-risk pts. Fleischner Society criteria for SUB-SOLID lung nodule followup. Solitary pure ground-glass nodules5 mm or lessNo followup needed. >5 mm3 mo follow-up CT to confirm persistence. Then annual CT for 3 years. Part-solid nodules3 mo follow-up CT to confirm persistence. If persistent with solid component <5 mm, annual CT for at least 3 years. If solid component is 5 mm or more, biopsy or surgical resection. Consider PET-CT for lesions > 10 mm. Multiple sub-solid nodulesPure ground glass nodules [address] at 2 and 4 years. Pure ground glass nodules >5 mm without dominant lesion. [address] to confirm persistence, then annual followup CT for at least 3 years. Dominant nodule(s) with part-solid or solid component. [address] to confirm persistence. If persistent, consider biopsy or surgical resection, carlito if lesions have >5 mm solid component. Dictated and approved by: Vanessa Torres M.D. on 03/24/2017 at 16:23 (03/24/17) CT ABDOMEN AND PELVIS WITH CONTRAST IMPRESSION: 1. Perforated acute diverticulitis with intra-abdominal abscess as above. Given the location posterior to the sigmoid colon and the bladder, this is likely not amenable to percutaneous drainage. Surgical consultation recommended. 2. Multiple foci of pneumoperitoneum. It is unclear whether there is a solitary perforated region of the sigmoid colon in the region of the abscess or if there may be a second bowel perforation more proximally in the left lower quadrant.These findings were discussed with Dr. Moreno at 4:27 PM on 03/24/17. 3. 1.0 cm diameter cystic lesion within the body of the pancreas. This is new when compared with the prior study dated 09/16/16. Differential considerations include both neoplastic and nonneoplastic cystic lesions. 4. Cholelithiasis. No acute cholecystitis. 5. Severe wedge compression deformity at L1 likely pathologic in nature given the expansile lytic lesion in this vertebral body on the study dated 09/16/16. Dictated and approved by: Vanessa Torres M.D. on 03/24/2017 at 16:24 X-RAY CHEST ONE VIEW, PORTABLE IMPRESSION: New ET tube, enteric tube, and left-sided IJ CVC in expected positions. New left pleural effusion with left basilar atelectasis. Dictated by: Bang Chung M.D. on 03/25/2017 at 7:54 Approved by: Bang Chung M.D. on 03/25/2017 at 7:56 X-RAY CHEST ONE VIEW, PORTABLE IMPRESSION: Decreased lung volumes, with patchy left midlung atelectasis. Dictated by: Darius Molina M.D. on 03/26/2017 at 8:30 Approved by: Darius Molina M.D. on 03/26/2017 at 8:33 CT ABDOMEN AND PELVIS WITH CONTRAST IMPRESSION: 1. Stable low density fluid collection around the surgical drain when compared with the study dated 03/30/17. No definite rim enhancement to suggest organizing abscess. 2. Decreased pleural effusions and consolidation at the lung bases are with the prior study. Dictated by: Vanessa Torres M.D. on 04/03/2017 at 15:29 X-RAY CHEST ONE VIEW, PORTABLE IMPRESSION: Persistent left basilar airspace opacity consistent with atelectasis versus aspiration or infection. Dictated by: Abiodun LINDSEY Interpreted: Diane Celeste MD on 04/05/2017 at 11:23 Approved by: Diane Celeste MD, PhD on 04/05/2017 at 12:25 X-RAY CHEST ONE VIEW, PORTABLE IMPRESSION: Persistent left basilar airspace opacity consistent with atelectasis versus aspiration or pneumonia. Dictated by: Abiodun LINDSEY Interpreted: Vanessa Torres MD on 04/06/2017 at 9:10 Approved by: Vanessa Torres M.D. on 04/06/2017 at 9:28 Additional Diagnostics Arterial Blood Gas DateTimeAnalyzed 07:18:35 -_ pH ____7.563 - 7.350 7.450 pCO2 ___28.1__ -mmHg 35.0 45.0 pO2 157 -mmHg 69.0 116 HCO3- ___25.3__ -mmol/L 22.0 26.0 ABE ____2.9__ -mmol/L -2.0 2.0 tHb ____9.8__ -g/dL 12.0 18.0 US ABDOMEN, LIMITED IMPRESSION: Cholelithiasis with prominent gallbladder wall measuring 4.2 mm. Developing cholecystitis cannot be excluded and clinical correlation is recommended. Dictated by: Abiodun Crockett RRA Interpreted: Ace Sesay MD on 04/04/2017 at 15:55 Approved by: Ace Sesay M.D. on 04/04/2017 at 16:11 NM HIDA SCAN WITH CCK IMPRESSION: 1. Normal filling of gallbladder. No evidence for acute cholecystitis. 2. Normal contractile response of gallbladder to CCK infusion. Dictated by: Ignacia Melgar M.D. on 04/05/2017 at 17:21 Approved by: Ignacia Melgar M.D. on 04/05/2017 at 17:22 US VENOUS LEG DUPLEX BILATERAL IMPRESSION: No DVT found. Dictated by: Jimbo Timmons M.D. on 04/06/2017 at 18:37 Approved by: Jimbo Timmons M.D. on 04/06/2017 at 18:37 US ABDOMEN, LIMITED IMPRESSION: 1. Increased hepatic echogenicity noted likely related to fatty infiltration of the liver but other sources of hepatocellular disease cannot be excluded. Recommend clinical correlation. 2. Cholelithiasis with thickened and mildly edematous gallbladder wall which may be related to developing cholecystitis. Correlate clinically. Dictated by: Abiodun Crockett RRA Interpreted: Vanessa Torres MD on 04/07/2017 at 10: 14 Approved by: Vanessa Torres M.D. on 04/07/2017 at 14:43 MR ABDOMEN MRCP IMPRESSION: 1. Cholelithiasis with at least 2 stones in the gallbladder neck. No marked enlargement of the gallbladder or apparent wall thickening. No pericholecystic inflammation. 2. Intrahepatic and extrahepatic bile ducts are normal in caliber. No filling defects are demonstrated. 3. Right kidney is absent. Left kidney appears normal noting exophytic cyst laterally 4. Pathologic fracture L1 . Dictated by: Brayden Denise M.D. on 04/07/2017 at 13:10 Approved by: Brayden Denise M.D. on 04/07/2017 at 13:32 . Assessment & Plan Abnormal LFT(Mixed cholestatic/hepatitis) -multifactorial TPN, medications and infection -improved from yesterday -continue to follow trend of LFT's -discontinue all non essential medications Anemia -no overt bleeding -follow H/H Altered mental status -consider trial of lactulose 8mm Pancreatic Cyst in the Body -CT pancreas protocol in 3 months GI Prophylaxis: H2 saw VTE Mechanical Devices: Intermittant Pneumatic CD Murray Gama MD Apr 08, 2017 15:27 Acute Encephalopathy, not present on admission, active - As the patient continues to be more alert and vocal postextubation, his level of confusion becomes more apparent. The patient continues to have multiple hallucinations daily. He remains pleasant and cooperative, however he does not appear to understand completely where he is, what year it is, and has no recollection of current events. - Possible infectious source, or inflammatory process, as he continues to have fevers of unknown origin. Continue workup for possible infection/inflammation - Possible cancerous progression with brain metastases, however this has not been demonstrated on any brain scans obtained thus far. Consider MRI if not improving. - Possible Hepatic encephalopathy based on elevations in liver enzymes, although unlikely. Ammonia levels pending. - Possible anoxic brain injury at some point between his initial surgery and extubation. - Continue to monitor Normocytic anemia, present on admission, active - Hemoglobin slowly trending down since admission - Morning hemoglobin 7.8 on 04/05, H&H repeated at 8.1 - Blood typed and crossed, proceed with transfusion if patient is less than 8.0 Elevated Alk Phos, POA, acute. Active Likely due to cholestasis and TPN, patient will begin oral feedings on 04/06 continue to monitor. -Patient has had high normal Alk Phos since admission, numbers continue to rise -Ultrasound of the abdomen shows a prominent gallbladder (4.2 mm) Developing cholecystitis cannot be excluded. -GGT 520 consistent with cholecystitis and/or common bile duct obstruction -HIDA scan obtained on 04/05 shows no evidence of cholecystitis. Results as above -MRCP shows no evidence of cholecystitis or choledocholithiasis Results as above -GI following, due to negative MRCP, suggests cholecystostomy, no ERCP indicated at this time. Perforated diverticulitis with intra-abdominal abscess. S/P sigmoid colectomy and descending colostomy, stable -No longer on sedation -Ostomy output appropriate -[place] and ARCELIA drain should remain for now, surgery continues to follow -IV meropenem -Repeat CT abdomen 04/03 shows resolving pleural effusions, mild abdominal fluid with no evidence of abscess. Acute Hypoxic Respiratory Failure due to surgery and COPD, chronic. Present on admission. Resolved -Pt intubated and sedated in the CCU. Extubated on 03/31 -Patient currently breathing well on room air Coronary artery disease, chronic. Present on admission. stable. -Pt with prior OH and two stents. Presented with mild chest pain with negative cardiac enzymes and no acute ischemic changes noted on ECG. -Continue home simvastatin and aspirin when able -Continuous cardiac monitoring. Renal cell carcinoma of right kidney, chronic. Presumed stable. -Pt is s/p nephrectomy in October 2016, previously treated with Pazopanib and dexamethasone. -CT abd/pelvis showed a renal cyst as above. -Resume oral medications when able Diabetes mellitus, type 2, chronic. Present on admission. Presumed stable. -Current outpatient therapy is Metformin 500mg PO BID -Hold Metformin -Continue tight glucose control. Per recommendations of general surgery if > 180 use insulin drip. Hypotension, acute. Resolved -Vital signs currently stable -TPN started on 03/27 Continue TPN Hypertension, chronic. Present on admission. Stable -Blood pressures remain stable -Held home antihypertensives: Lisinopril 40mg PO daily, Metoprolol succinate 50mg PO daily - IV metoprolol 2.5 mg every 4 Hyperlipidemia, chronic. Present on admission. Presumed stable. -Continue home dose statin (Simvastatin 20mg PO HS) when able GI Prophylaxis: H2 saw VTE Mechanical Devices: Intermittant Pneumatic CD Murray Gama MD Apr 08, 2017 15:27
--- NOTE | 2017-04-08 18:19 | NUR ---
Mentation The pt continues to only be oriented to person with auditory and visual hallucinations - the number of hallucinations seems less than yesterday, however. The pt was up to a chair with PT today, but was only able to tolerate it for 20 minutes before needing the lift to get back to bed. The pt is currently refusing to eat - only ate two bites of food throughout the shift. Any attempt to encourage eating was met with a firm "NO!" by the patient. VSS
[2017-04-09] VITALS (9 sets, daily range): BP systolic 126–145; BP diastolic 64–92; PULSE 90–115; RESP 22–32; O2SAT 95–98
[2017-04-09] MEDS: Heparin 5,000 Unit/mL Inj SUBQ SCH ×3 (01:35→17:34)
[2017-04-09] MEDS: Meropenem Inj 2,000 MG in 0.9% Sodium Chloride 100 ML IV SCH ×3 (01:35→17:33)
[2017-04-09] MEDS: MeTOProlol 1 mg/mL 5 mL Inj IVPUSH SCH ×6 (01:35→20:12)
--- NOTE | 2017-04-09 06:25 | NUR ---
Mentation: Pt sleeping off and on during the night. minimal hallucinations and continues to be very confused helps with turns when prompted. wound vac to mid lower abd with very little to no drainage. ARCELIA drain remains in place to right upper quad with minimal drainage.
[2017-04-09 06:57] LABS: BASOPHILS % (AUTO) 0.8 % (0-3); EOSINOPHILS % (AUTO) 8.9 % (0-5); MONOCYTES % (AUTO) 10.2 % (4-12); Mean Corpuscular Hemoglobin 31.1 pg (27.0-35.0); Mean Corpuscular Volume 99.2 fL (81-100); NEUTROPHILS % (AUTO) 67.3 % (40-74); Platelet Count 878 bil/L (150-400)
[2017-04-09 07:26] LABS: INR 1.12 ratio
--- NOTE | 2017-04-09 11:53 | PCM.PNSURG ---
Subjective Date of Service: Apr 09, 2017 Visit Information: Perforated Diverticulitis s/p tony procedure 03/24/2017 Post-Op Day # 16 Date of Admission: Mar 24, 2017 at 17:07 Hospital Day # 17 Subjective: Tolerating diet. Fevers Improving Objective Vital Sign- Last 8 Hours Date Time Temp Pulse Resp B/P Pulse Ox O2 Delivery O2 Flow Rate FiO2 04/09/17 10:33 90 04/09/17 06:16 90 04/09/17 03:52 36.7 100 29 145/76 97 Room Air Intake and Output- Last 8 Hour 04/09/17 Cumulative From/Thru 07:00 03/24/17 14:24 - 04/09/17 06:44 Intake Total 667 ml 49934 ml Output Total 730 ml 20146 ml Balance -63 ml 2176 ml Intake Oral 0 ml 50 ml IV Total 667 ml 30864 ml Tube Feeding 40 ml TPN/PPN 43034 ml Tube Irrigant 120 ml Output Urine Total 650 ml 99776 ml Stool Total 1120 ml Gastric Drainage Total 4260 ml Drainage Total 80 ml 1610 ml Estimated Blood Loss 120 ml # Bowel Movements 1 Abdomen: Soft, Other (VAC intact, Stoma with output) Result Diagram: 04/09/17 0645 04/09/17 0645 Assessment & Plan Impression Slowly Improving Problems: Plan Regular diet Continue abx VAC changes 3 times a week Will Remove ARCELIA in a day or 2 once the fevers resolve Will continue to follow closely Juan Linder MD Apr 09, 2017 11:53
[2017-04-09] MEDS: Lactulose 20 Gm/30 mL 30 mL Syrup PO SCH (14:08)
--- NOTE | 2017-04-09 15:10 | PCM.PNMED ---
Subjective Date of Service Apr 09, 2017 Subjective no acute events overnight states the food is horrible here in the hospital Exam Vital Signs Vital Sign - Last Date Time Temp Pulse Resp B/P Pulse Ox O2 Delivery O2 Flow Rate FiO2 04/09/17 12:08 36.8 107 32 132/64 95 Room Air 04/05/17 00:07 Intake and Output 04/08/17 04/08/17 04/09/17 Cumulative From/Thru 15:00 23:00 07:00 03/24/17 14:24 - 04/09/17 06:44 Intake Total 234 ml 667 ml 09461 ml Output Total 800 ml 730 ml 81486 ml Balance -566 ml -63 ml 2176 ml Intake Oral 0 ml 50 ml IV Total 234 ml 667 ml 42547 ml Tube Feeding 40 ml TPN/PPN 87264 ml Tube Irrigant 120 ml Output Urine Total 600 ml 650 ml 35896 ml Stool Total 1120 ml Gastric Drainage Total 4260 ml Drainage Total 200 ml 80 ml 1610 ml Estimated Blood Loss 120 ml # Bowel Movements 1 Exam Gen - awake HEENT- no icterus resp- coarse breath sounds anteriorly bilaterally CVS-RRR abdomen--colostomy with brown stool, soft, minimal tenderness diffuse throughout the abdomen Lab and Diagnostics Result Diagram: 04/09/17 0645 04/09/17 0645 Microbiology Blood culture 2/3 bottles positive for Gram + cocci X-Rays, CTs and MRIs (03/24/17) X-RAY CHEST ONE VIEW, PORTABLE IMPRESSION: No acute pulmonary process. Dictated and approved by: Windy Larsen M.D. on 03/24/2017 at 14:05 (03/24/17) CT ANGIO CHEST PULMONARY EMBOLISM IMPRESSION: 1. No acute pulmonary embolus. 2. 4 mm groundglass nodule. No prior comparisons are available. Please see followup guidelines below. 3. Please see detailed description of abdominal findings on the associated CT of the abdomen from the same date. ADDENDUM: Fleischner Society criteria for SOLID lung nodule followup. Nodule size (mm)Low-risk patientHigh-risk [id number] follow-up neededFollow-up at 12 mo; if no change, no further follow-up>[id number] CT at 12 mo; if no change, no further follow-up needed.Initial follow-up CT at 6-12 mo, then 18-24 mo if no change. >6-8Initial follow-up CT at 6-12 mo, then 18-24 mo if no change. Initial follow-up CT at 3-6 mo, then 9-12 mo and 24 mo if no change. > 8Follow-up CT at 3, 9, 24 mo. Or PET and/or biopsy.Same as for low-risk pts. Fleischner Society criteria for SUB-SOLID lung nodule followup. Solitary pure ground-glass nodules5 mm or lessNo followup needed. >5 mm3 mo follow-up CT to confirm persistence. Then annual CT for 3 years. Part-solid nodules3 mo follow-up CT to confirm persistence. If persistent with solid component <5 mm, annual CT for at least 3 years. If solid component is 5 mm or more, biopsy or surgical resection. Consider PET-CT for lesions > 10 mm. Multiple sub-solid nodulesPure ground glass nodules [address] at 2 and 4 years. Pure ground glass nodules >5 mm without dominant lesion. [address] to confirm persistence, then annual followup CT for at least 3 years. Dominant nodule(s) with part-solid or solid component. [address] to confirm persistence. If persistent, consider biopsy or surgical resection, carlito if lesions have >5 mm solid component. Dictated and approved by: Vanessa Torres M.D. on 03/24/2017 at 16:23 (03/24/17) CT ABDOMEN AND PELVIS WITH CONTRAST IMPRESSION: 1. Perforated acute diverticulitis with intra-abdominal abscess as above. Given the location posterior to the sigmoid colon and the bladder, this is likely not amenable to percutaneous drainage. Surgical consultation recommended. 2. Multiple foci of pneumoperitoneum. It is unclear whether there is a solitary perforated region of the sigmoid colon in the region of the abscess or if there may be a second bowel perforation more proximally in the left lower quadrant.These findings were discussed with Dr. Moreno at 4:27 PM on 03/24/17. 3. 1.0 cm diameter cystic lesion within the body of the pancreas. This is new when compared with the prior study dated 09/16/16. Differential considerations include both neoplastic and nonneoplastic cystic lesions. 4. Cholelithiasis. No acute cholecystitis. 5. Severe wedge compression deformity at L1 likely pathologic in nature given the expansile lytic lesion in this vertebral body on the study dated 09/16/16. Dictated and approved by: Vanessa Torres M.D. on 03/24/2017 at 16:24 X-RAY CHEST ONE VIEW, PORTABLE IMPRESSION: New ET tube, enteric tube, and left-sided IJ CVC in expected positions. New left pleural effusion with left basilar atelectasis. Dictated by: Bang Chung M.D. on 03/25/2017 at 7:54 Approved by: Bang Chung M.D. on 03/25/2017 at 7:56 X-RAY CHEST ONE VIEW, PORTABLE IMPRESSION: Decreased lung volumes, with patchy left midlung atelectasis. Dictated by: Darius Molina M.D. on 03/26/2017 at 8:30 Approved by: Darius Molina M.D. on 03/26/2017 at 8:33 CT ABDOMEN AND PELVIS WITH CONTRAST IMPRESSION: 1. Stable low density fluid collection around the surgical drain when compared with the study dated 03/30/17. No definite rim enhancement to suggest organizing abscess. 2. Decreased pleural effusions and consolidation at the lung bases are with the prior study. Dictated by: Vanessa Torres M.D. on 04/03/2017 at 15:29 X-RAY CHEST ONE VIEW, PORTABLE IMPRESSION: Persistent left basilar airspace opacity consistent with atelectasis versus aspiration or infection. Dictated by: Abiodun LINDSEY Interpreted: Diane Celeste MD on 04/05/2017 at 11:23 Approved by: Diane Celeste MD, PhD on 04/05/2017 at 12:25 X-RAY CHEST ONE VIEW, PORTABLE IMPRESSION: Persistent left basilar airspace opacity consistent with atelectasis versus aspiration or pneumonia. Dictated by: Abiodun LINDSEY Interpreted: Vanessa Torres MD on 04/06/2017 at 9:10 Approved by: Vanessa Torres M.D. on 04/06/2017 at 9:28 Additional Diagnostics Arterial Blood Gas DateTimeAnalyzed 07:18:35 -_ pH ____7.563 - 7.350 7.450 pCO2 ___28.1__ -mmHg 35.0 45.0 pO2 157 -mmHg 69.0 116 HCO3- ___25.3__ -mmol/L 22.0 26.0 ABE ____2.9__ -mmol/L -2.0 2.0 tHb ____9.8__ -g/dL 12.0 18.0 US ABDOMEN, LIMITED IMPRESSION: Cholelithiasis with prominent gallbladder wall measuring 4.2 mm. Developing cholecystitis cannot be excluded and clinical correlation is recommended. Dictated by: Abiodun Crockett RRA Interpreted: Ace Sesay MD on 04/04/2017 at 15:55 Approved by: Ace Sesay M.D. on 04/04/2017 at 16:11 NM HIDA SCAN WITH CCK IMPRESSION: 1. Normal filling of gallbladder. No evidence for acute cholecystitis. 2. Normal contractile response of gallbladder to CCK infusion. Dictated by: Ignacia Melgar M.D. on 04/05/2017 at 17:21 Approved by: Ignacia Melgar M.D. on 04/05/2017 at 17:22 US VENOUS LEG DUPLEX BILATERAL IMPRESSION: No DVT found. Dictated by: Jimbo Timmons M.D. on 04/06/2017 at 18:37 Approved by: Jimbo Timmons M.D. on 04/06/2017 at 18:37 US ABDOMEN, LIMITED IMPRESSION: 1. Increased hepatic echogenicity noted likely related to fatty infiltration of the liver but other sources of hepatocellular disease cannot be excluded. Recommend clinical correlation. 2. Cholelithiasis with thickened and mildly edematous gallbladder wall which may be related to developing cholecystitis. Correlate clinically. Dictated by: Abiodun Crockett RRA Interpreted: Vanessa Torres MD on 04/07/2017 at 10: 14 Approved by: Vanessa Torres M.D. on 04/07/2017 at 14:43 MR ABDOMEN MRCP IMPRESSION: 1. Cholelithiasis with at least 2 stones in the gallbladder neck. No marked enlargement of the gallbladder or apparent wall thickening. No pericholecystic inflammation. 2. Intrahepatic and extrahepatic bile ducts are normal in caliber. No filling defects are demonstrated. 3. Right kidney is absent. Left kidney appears normal noting exophytic cyst laterally 4. Pathologic fracture L1 . Dictated by: Brayden Denise M.D. on 04/07/2017 at 13:10 Approved by: Brayden Denise M.D. on 04/07/2017 at 13:32 . Assessment & Plan Abnormal LFT(Mixed cholestatic/hepatitis) -multifactorial TPN, medications and infection -alk phos up from yesterday from yesterday -continue to follow LFT's -discontinue all non essential medications Anemia -no overt bleeding -follow H/H Altered mental status -consider trial of lactulose 8mm Pancreatic Cyst in the Body -CT pancreas protocol in 3 months GI Prophylaxis: H2 saw VTE Mechanical Devices: Intermittant Pneumatic CD Murray Gama MD Apr 09, 2017 15:10
--- NOTE | 2017-04-09 18:05 | NUR ---
Post Op/ Confusion.. Pt has remained stable throughout the day and denies any discomfort. Has been confused to place and mumbles about being places outside the hospital. Started on Lactulose to help clear mentation. Has no appetite and has refused even bites of diet offered. Family here at bedside and updated on status.
--- NOTE | 2017-04-09 19:13 | PCM.PNMED ---
Subjective Date of Service Apr 09, 2017 Subjective Overnight: Mentation: The patient remained in delirium with auditory or visual hallucinations however improved from previous nights no acute events otherwise noted Today: The patient feels better today and his at the bedside states that his mentation is significantly improved from days prior. The patient denies any abdominal pain, shortness of breath, chest pain. The patient does not like his current dietary restrictions and does not like putting because it tastes like cardboard. Exam Vital Signs Vital Sign - Last Date Time Temp Pulse Resp B/P Pulse Ox O2 Delivery O2 Flow Rate FiO2 04/09/17 06:16 90 04/09/17 03:52 36.7 29 145/76 97 Room Air 04/05/17 00:07 Intake and Output 04/08/17 04/08/17 04/09/17 Cumulative From/Thru 15:00 23:00 07:00 03/24/17 14:24 - 04/09/17 06:44 Intake Total 234 ml 667 ml 90779 ml Output Total 800 ml 730 ml 99883 ml Balance -566 ml -63 ml 2176 ml Intake Oral 0 ml 50 ml IV Total 234 ml 667 ml 74006 ml Tube Feeding 40 ml TPN/PPN 24112 ml Tube Irrigant 120 ml Output Urine Total 600 ml 650 ml 51647 ml Stool Total 1120 ml Gastric Drainage Total 4260 ml Drainage Total 200 ml 80 ml 1610 ml Estimated Blood Loss 120 ml # Bowel Movements 1 Exam General: Elderly male alert and cooperative, in no acute distress Eyes: Pupils equal round and reactive to light, extraocular motion intact, anicteric sclera, noninjected conjunctiva HENT: Normocephalic atraumatic, moist mucous membranes without central cyanosis , oropharynx clear without purulent exudate or cobblestoning mucosa Neck: Supple, trachea midline, without thyromegaly or JVD Cardiovascular: Tachycardia regularly regular rhythm, S1-S2 present, no S3-S4, without murmurs rubs or gallops noted Lungs: Coarse breath sounds noted in the left lower lung werner clear to auscultation in all lung werner without wheezing noted Abdomen: Soft, ostomy noted in left lower quadrant with billous output noted, ARCELIA drain noted in right lower quadrant, mild tenderness in lower quadrants without Florez's sign and right upper quadrant, nondistended, tympanic to percussion, normal active bowel sounds, without organomegaly Extremities: No cyanosis clubbing or edema noted, pulses intact bilaterally at dorsalis pedis and radial : Dallas catheter in place Skin: Warm and dry Neuro: Nonfocal neurologic exam Psych: Normal mood and flat affect Lab and Diagnostics Result Diagram: 04/09/17 0645 04/09/17 0645 Microbiology Blood culture 2/3 bottles positive for Gram + cocci X-Rays, CTs and MRIs (03/24/17) X-RAY CHEST ONE VIEW, PORTABLE IMPRESSION: No acute pulmonary process. Dictated and approved by: Windy Larsen M.D. on 03/24/2017 at 14:05 (03/24/17) CT ANGIO CHEST PULMONARY EMBOLISM IMPRESSION: 1. No acute pulmonary embolus. 2. 4 mm groundglass nodule. No prior comparisons are available. Please see followup guidelines below. 3. Please see detailed description of abdominal findings on the associated CT of the abdomen from the same date. ADDENDUM: Fleischner Society criteria for SOLID lung nodule followup. Nodule size (mm)Low-risk patientHigh-risk [id number] follow-up neededFollow-up at 12 mo; if no change, no further follow-up>[id number]-[id number] CT at 12 mo; if no change, no further follow-up needed.Initial follow-up CT at 6-12 mo, then 18-24 mo if no change. >6-8Initial follow-up CT at 6-12 mo, then 18-24 mo if no change. Initial follow-up CT at 3-6 mo, then 9-12 mo and 24 mo if no change. > 8Follow-up CT at 3, 9, 24 mo. Or PET and/or biopsy.Same as for low-risk pts. Fleischner Society criteria for SUB-SOLID lung nodule followup. Solitary pure ground-glass nodules5 mm or lessNo followup needed. >5 mm3 mo follow-up CT to confirm persistence. Then annual CT for 3 years. Part-solid nodules3 mo follow-up CT to confirm persistence. If persistent with solid component <5 mm, annual CT for at least 3 years. If solid component is 5 mm or more, biopsy or surgical resection. Consider PET-CT for lesions > 10 mm. Multiple sub-solid nodulesPure ground glass nodules [address] at 2 and 4 years. Pure ground glass nodules >5 mm without dominant lesion. [address] to confirm persistence, then annual followup CT for at least 3 years. Dominant nodule(s) with part-solid or solid component. [address] to confirm persistence. If persistent, consider biopsy or surgical resection, carlito if lesions have >5 mm solid component. Dictated and approved by: Vanessa Torres M.D. on 03/24/2017 at 16:23 (03/24/17) CT ABDOMEN AND PELVIS WITH CONTRAST IMPRESSION: 1. Perforated acute diverticulitis with intra-abdominal abscess as above. Given the location posterior to the sigmoid colon and the bladder, this is likely not amenable to percutaneous drainage. Surgical consultation recommended. 2. Multiple foci of pneumoperitoneum. It is unclear whether there is a solitary perforated region of the sigmoid colon in the region of the abscess or if there may be a second bowel perforation more proximally in the left lower quadrant.These findings were discussed with Dr. Moreno at 4:27 PM on 03/24/17. 3. 1.0 cm diameter cystic lesion within the body of the pancreas. This is new when compared with the prior study dated 09/16/16. Differential considerations include both neoplastic and nonneoplastic cystic lesions. 4. Cholelithiasis. No acute cholecystitis. 5. Severe wedge compression deformity at L1 likely pathologic in nature given the expansile lytic lesion in this vertebral body on the study dated 09/16/16. Dictated and approved by: Vanessa Torres M.D. on 03/24/2017 at 16:24 X-RAY CHEST ONE VIEW, PORTABLE IMPRESSION: New ET tube, enteric tube, and left-sided IJ CVC in expected positions. New left pleural effusion with left basilar atelectasis. Dictated by: Bang Chung M.D. on 03/25/2017 at 7:54 Approved by: Bang Chung M.D. on 03/25/2017 at 7:56 X-RAY CHEST ONE VIEW, PORTABLE IMPRESSION: Decreased lung volumes, with patchy left midlung atelectasis. Dictated by: Darius Molina M.D. on 03/26/2017 at 8:30 Approved by: Darius Molina M.D. on 03/26/2017 at 8:33 CT ABDOMEN AND PELVIS WITH CONTRAST IMPRESSION: 1. Stable low density fluid collection around the surgical drain when compared with the study dated 03/30/17. No definite rim enhancement to suggest organizing abscess. 2. Decreased pleural effusions and consolidation at the lung bases are with the prior study. Dictated by: Vanessa Torres M.D. on 04/03/2017 at 15:29 X-RAY CHEST ONE VIEW, PORTABLE IMPRESSION: Persistent left basilar airspace opacity consistent with atelectasis versus aspiration or infection. Dictated by: Abiodun LINDSEY Interpreted: Diane Celeste MD on 04/05/2017 at 11:23 Approved by: Diane Celeste MD, PhD on 04/05/2017 at 12:25 X-RAY CHEST ONE VIEW, PORTABLE IMPRESSION: Persistent left basilar airspace opacity consistent with atelectasis versus aspiration or pneumonia. Dictated by: Abiodun LINDSEY Interpreted: Vanessa Torres MD on 04/06/2017 at 9:10 Approved by: Vanessa Torres M.D. on 04/06/2017 at 9:28 Additional Diagnostics Arterial Blood Gas DateTimeAnalyzed 07:18:35 -_ pH ____7.563 - 7.350 7.450 pCO2 ___28.1__ -mmHg 35.0 45.0 pO2 157 -mmHg 69.0 116 HCO3- ___25.3__ -mmol/L 22.0 26.0 ABE ____2.9__ -mmol/L -2.0 2.0 tHb ____9.8__ -g/dL 12.0 18.0 US ABDOMEN, LIMITED IMPRESSION: Cholelithiasis with prominent gallbladder wall measuring 4.2 mm. Developing cholecystitis cannot be excluded and clinical correlation is recommended. Dictated by: Abiodun LINDSEY Interpreted: Ace Sesay MD on 04/04/2017 at 15:55 Approved by: Ace Sesay M.D. on 04/04/2017 at 16:11 NM HIDA SCAN WITH CCK IMPRESSION: 1. Normal filling of gallbladder. No evidence for acute cholecystitis. 2. Normal contractile response of gallbladder to CCK infusion. Dictated by: Ignacia Melgar M.D. on 04/05/2017 at 17:21 Approved by: Ignacia Melgar M.D. on 04/05/2017 at 17:22 US VENOUS LEG DUPLEX BILATERAL IMPRESSION: No DVT found. Dictated by: Jimbo Timmons M.D. on 04/06/2017 at 18:37 Approved by: Jimbo Timmons M.D. on 04/06/2017 at 18:37 US ABDOMEN, LIMITED IMPRESSION: 1. Increased hepatic echogenicity noted likely related to fatty infiltration of the liver but other sources of hepatocellular disease cannot be excluded. Recommend clinical correlation. 2. Cholelithiasis with thickened and mildly edematous gallbladder wall which may be related to developing cholecystitis. Correlate clinically. Dictated by: Abiodun LINDSEY Interpreted: Vanessa Torres MD on 04/07/2017 at 10: 14 Approved by: Vanessa Torres M.D. on 04/07/2017 at 14:43 MR ABDOMEN MRCP IMPRESSION: 1. Cholelithiasis with at least 2 stones in the gallbladder neck. No marked enlargement of the gallbladder or apparent wall thickening. No pericholecystic inflammation. 2. Intrahepatic and extrahepatic bile ducts are normal in caliber. No filling defects are demonstrated. 3. Right kidney is absent. Left kidney appears normal noting exophytic cyst laterally 4. Pathologic fracture L1 . Dictated by: Brayden Denise M.D. on 04/07/2017 at 13:10 Approved by: Brayden Denise M.D. on 04/07/2017 at 13:32 . Assessment & Plan 71 year old gentleman with a history of CAD with 2 stents, COPD, hyperlipidemia , and right-sided renal cell carcinoma (s/p nephrectomy in October 2016) currently treated with Pazopanib presenting to the CCU hypotensive and was initially intubated status post sigmoid colectomy with descending colostomy for perforated diverticulitis. Fevers of unknown origin, not present on admission, active - None noted since 04/07 consistent with possible side effect of micafungin as this was discontinued - Possible but unlikely due to progressive neoplasm 04/08 discuss with regional oncologist who states that panzopunib and dexamethasone are non-essential medications and can be held for a total of 4-6 weeks while the patient becomes stabilized. - Ultrasounds of the lower limbs conducted to rule out DVT, negative - UA shows no obvious urinary source of infection , culture reflexed, no growth to date - CT, ultrasound suggests cholelithiasis with possible cholecystitis, other results as above - HIDA scan suggests no cholecystitis at this time, other results as above - MRCP shows no evidence of cholecystitis or choledocholithiasis results as above - ID following, recommends removing the PICC line and culturing the tip, and consideration for discontinuing meropenem as this is unlikely to be a bacterial infection. - General surgery following, recommends continuation of antibiotics at this time - GI following an infectious disease following Elevated liver function labs including alkaline phosphatase, POA, acute. Active Likely due to cholestasis and TPN, patient began oral feedings on 04/06 continue to monitor. -Patient has had high normal Alk Phos since admission, numbers went down for the first time on 04/08 -Ultrasound of the abdomen shows a prominent gallbladder (4.2 mm) Developing cholecystitis cannot be excluded. -GGT 520 consistent with cholecystitis and/or common bile duct obstruction -HIDA scan obtained on 04/05 shows no evidence of cholecystitis. Results as above -MRCP shows no evidence of cholecystitis or choledocholithiasis Results as above -GI following with recommendations to discontinue unnecessary medications, due to negative MRCP, suggests cholecystostomy, no ERCP indicated at this time. -continue to monitor . Acute Encephalopathy, not present on admission, active - As the patient continues to be more alert and vocal post extubation, Level of encephalopathy tends to wax and wane, slowly improving - Possible infectious source, or inflammatory process, as he continues to have fevers of unknown origin. Continue workup for possible infection/inflammation - Possible cancerous progression with brain metastases, however this has not been demonstrated on any brain scans obtained thus far. Consider MRI if not improving. - Possible Hepatic encephalopathy based on elevations in liver enzymes, although unlikely. Ammonia levels within normal limits. GI suggested trial of lactulose 1 - Possible anoxic brain injury at some point between his initial surgery and extubation. - Continue to monitor Normocytic anemia, present on admission, active - Hemoglobin slowly trending down since admission - Last checked 7.5 2 days and stable - Stools found to be guaiac positive, however no obvious GI loss, and no other sources of bleeding noted - Patient's blood count is trending down very slowly and is unlikely to represent acute bleed. - PRBC transfusion considered however, due to slow down trend in conjunction with low serum iron, will attempt iron infusion prior to transfusion. - Patient infused with iron sodium gluconate Perforated diverticulitis with intra-abdominal abscess. S/P sigmoid colectomy and descending colostomy, stable -Ostomy output appropriate -[place] and ARCELIA drain should remain for now, surgery continues to follow -IV meropenem -Repeat CT abdomen 04/03 shows resolving pleural effusions, mild abdominal fluid with no evidence of abscess. Acute Hypoxic Respiratory Failure due to surgery and COPD, chronic. Present on admission. Resolved -Pt intubated and sedated in the CCU. Extubated on 03/31 -Patient currently breathing well on room air Coronary artery disease, chronic. Present on admission. stable. -Pt with prior WI and two stents. Presented with mild chest pain with negative cardiac enzymes and no acute ischemic changes noted on ECG. -Continue home simvastatin and aspirin when able -Continuous cardiac monitoring. Renal cell carcinoma of right kidney, chronic. Presumed stable. -Pt is s/p nephrectomy in October 2016, previously treated with Pazopanib and dexamethasone. -CT abd/pelvis showed a renal cyst as above. -Resume oral medications when able Diabetes mellitus, type 2, chronic. Present on admission. Presumed stable. -Current outpatient therapy is Metformin 500mg PO BID -Hold Metformin -Continue tight glucose control. Per recommendations of general surgery if > 180 use insulin drip. Hypotension, acute. Resolved -Vital signs currently stable -TPN started on 03/27 Continue TPN Hypertension, chronic. Present on admission. Stable -Blood pressures remain stable -Held home antihypertensives: Lisinopril 40mg PO daily, Metoprolol succinate 50mg PO daily -IV metoprolol 2.5 mg every 4 Hyperlipidemia, chronic. Present on admission. Presumed stable. -Continue home dose statin (Simvastatin 20mg PO HS) when able DVT prophylaxis: Contraindicated with surgical procedures pending GI prophylaxis: Not indicated at this time Patient is likely to remain inpatient for several more days awaiting placement for likely SNF pending physical therapy recommendation GI Prophylaxis: Not indicated VTE Mechanical Devices: Intermittant Pneumatic CD Resuscitation Status: CPR: Attempt Resuscitation Time spent 30 minutes Attending Statement I have seen and evaluated patient at bedside in addition to directly supervising care provided by resident physician Dr Joy on 04/09/2017. I agree with above documentation. This gentleman continues to demonstrate a convoluted recovery, complicated by anemia and addition to persistent elevated Alk phos and level enzymes, in conjunction with only recently resolving fever and abdominal pain which has prompted concern for continued disease process. Continue close monitoring. Jer Joy DO Apr 09, 2017 10:13 Jose Deal DO Apr 10, 2017 07:29
[2017-04-10] VITALS (9 sets, daily range): BP systolic 111–137; BP diastolic 57–78; PULSE 93–120; RESP 18–30; O2SAT 96–98
[2017-04-10] MEDS: MeTOProlol 1 mg/mL 5 mL Inj IVPUSH SCH ×6 (02:14→20:39)
[2017-04-10] MEDS: Meropenem Inj 2,000 MG in 0.9% Sodium Chloride 100 ML IV SCH (02:14)
[2017-04-10] MEDS: Heparin 5,000 Unit/mL Inj SUBQ SCH ×3 (02:14→17:35)
[2017-04-10 05:18] LABS: Mean Corpuscular Hemoglobin 31.1 pg (27.0-35.0)
[2017-04-10 05:19] LABS: EOSINOPHILS % (AUTO) 9.3 % (0-5); MONOCYTES % (AUTO) 9.6 % (4-12); NEUTROPHILS % (AUTO) 63.8 % (40-74); Platelet Count 1038 bil/L (150-400)
[2017-04-10] MEDS ORDERED: 0.9% Sodium Chloride 250 ML IV ONE (05:25)
[2017-04-10 05:48] LABS: INR 1.26 ratio
--- NOTE | 2017-04-10 06:12 | NUR ---
Labs/SVT Patient's am labs revealed Hgb 6.4 and platelets 1038. Page to Dr. Hernandez with critical results. Patient re-examined for signs of overt bleeding; none noted. At approximately 0600 patient noted to be extremely tachycardic, with rates in the 170s-180s. STAT EKG obtained; per pharmacy laboratory technician, patient in SVT. Scheduled dose of IVP metoprolol given immediately following EKG; patient converted to sinus rhythm/sinus tach, rates 80-100s. FYI page to Dr. Hernandez.
--- NOTE | 2017-04-10 07:45 | PROG NOTE ---
[address] [address] PROGRESS NOTE PATIENT: JOSAFAT SOLIS : 1945 MR#: [id number] ADMIT: 03/24/2017 JOB ID: [id number] DATE: 04/10/2017 SUBJECTIVE: The patient is seen in followup. He denies any abdominal pain this morning. He has not had any nausea. He remains slightly confused and is mainly complaining about the food and wanting to get out of the hospital. OBJECTIVE: Temperature 36.5, pulse 94, blood pressure 137/76, saturation 98% on room air. In general, he is resting in bed in no acute distress. Chest is clear. Heart regular rate and rhythm, no murmurs. Abdomen is soft, nontender, nondistended. His colostomy has stool output. ARCELIA drain has no output. Lower midline wound has a wound VAC in place with minimal drainage and no erythema of the abdominal wall. LABORATORIES: White count is 10.2, hemoglobin 6.4, hematocrit 20.6, platelets 1038. Creatinine 0.65. Glucose 82. Bilirubin 0.6, AST 105, ALT 102, alkaline phosphatase 1598, albumin 2.3. ASSESSMENT AND PLAN: A 71-year-old man with severe perforated sigmoid diverticulitis status post Diallo's procedure. Not unexpectedly, his recovery is taking a long time. He has had return of bowel function and is eating. He has some cholestasis which is multifactorial, partially secondary to gallstones and partially secondary to critical illness and TPN. I do not think that further biliary investigation is indicated at this point. I think that antibiotics could likely be discontinued at any time. I would recommend starting aspirin because of his thrombophilia.
--- NOTE | 2017-04-10 08:55 | PROG NOTE ---
[address] [address] PROGRESS NOTE PATIENT: JOSAFAT SOLIS : 1945 MR#: [id number] ADMIT: 03/24/2017 JOB ID: [id number] DATE: 04/10/2017 REASON FOR FOLLOW UP: Complicated intra-abdominal infection, followed by cholestatic hepatitis. INTERVAL HISTORY: The patient reports this morning he is feeling better. He denies fevers, chills, or significant shortness of breath. He additionally denies abdominal pain. He remains somewhat disoriented. He knows he is in a hospital but has no idea where that hospital is. He is uncertain of the year but does know the President. PHYSICAL EXAM: Reveals an afebrile gentleman who has now been completely afebrile for 3-1/2 days. His temperature is 36.5, pulse 94, respiratory rate 30, blood pressure 137/76. He is saturating well on room air. In no acute distress. On examining the patient, reveals he is oriented times 1.5 basically. He is pleasant and in no distress whatsoever. Oral cavity negative. He has no NG tube. He still has a PICC in the right upper extremity which appears benign. His lungs are relatively clear with a few crackles at the bases. His cardiac tones without change. His abdomen is notable for the removal of the ARCELIA drain on the right. He still has a colostomy and a wound VAC in the inferior umbilicus area. [place] catheter is present. LABORATORIES: Include white count 10,000. Diff is basically normal but with climbing eosinophilia now 10%, which accounts for all of his elevated white count. Platelet count has now broached one million, 1,038,000 today. Creatinine 0.65. Alk phos stable at 1600. ALT and AST both right around 100, as they have been. Fungal blood cultures the are negative. Urine culture from the negative. Previous blood cultures from the and are negative. Stool culture negative. IMAGING: Includes MRCP that was done the that shows cholelithiasis with two stones in the gallbladder neck but no enlargement of the gallbladder wall thickening and no pericholecystic inflammation is seen. The intra and extrahepatic bile ducts are normal in caliber. There is no right kidney. IMPRESSION: This patient has certainly stabilized over the weekend and is looking somewhat better. He had some low-grade fevers towards the end of last week which have basically resolved. In addition, he has a worsening eosinophilia with now over 1000 eosinophils, which I suspect is on the basis of his antibiotics. The main concern over the past few days has been his very impressive cholestatic hepatitis which has been variously ascribed to gallstones, TPN, critical illness or medications at this point. This has not improved, though at least seems to have stopped worsening. There is no evidence for cholecystitis at this point. RECOMMENDATIONS: 1. Go ahead and stop the meropenem today. 2. If not needed, we could consider removing the PICC line, though the concerns about it being infected, I think, have been delayed somewhat. 3. Will continue to closely follow this complex patient with you.
[2017-04-10] MEDS: Lactulose 20 Gm/30 mL 30 mL Syrup PO SCH (09:10)
--- NOTE | 2017-04-10 11:48 | NUR ---
CLEANING MATRON advanced diet to pudding/pureed for lunch today. Will assess for swallow safety and potential further upgrade this afternoon.
--- NOTE | 2017-04-10 14:14 | PCM.PNMED ---
Subjective Date of Service Apr 10, 2017 Subjective GASTROENTEROLOGY PROGRESS NOTE: Attending Physician: Murray Gama MD Resident Physician: Courtney Gibson DO Patient's H/H dropped overnight with a Hb of 6.4 this morning. Now s/p transfusion of pRBCs. No overt signs of bleeding and stool is guaiac positive; repeat H/H 7.8/25.6. Per nursing, episode of SVT noted on telemetry with heart rate in the 170s to 180s and resolved with IV push of metoprolol. Patient remains in sinus rhythm and denies chest pain, nausea, vomiting and difficulty breathing. However, he states that he feels 'crummy' and does not have much of an appetite. He reports generalized weakness and fatigue and diffuse abdominal tenderness particularly in the RLQ. Exam Vital Signs Vital Sign - Last Date Time Temp Pulse Resp B/P Pulse Ox O2 Delivery O2 Flow Rate FiO2 04/10/17 09:17 116/78 04/10/17 08:54 36.6 110 20 04/10/17 02:28 98 Room Air 04/05/17 00:07 Intake and Output 04/09/17 04/09/17 04/10/17 Cumulative From/Thru 15:00 23:00 07:00 03/24/17 14:24 - 04/10/17 05:26 Intake Total 342 ml 344 ml 92211 ml Output Total 1082 ml 980 ml 93197 ml Balance -740 ml -636 ml 800 ml Intake Oral 0 ml 0 ml 50 ml IV Total 342 ml 344 ml 74514 ml Tube Feeding 40 ml TPN/PPN 96030 ml Tube Irrigant 120 ml Output Urine Total 750 ml 600 ml 85186 ml Stool Total 32 ml 1152 ml Gastric Drainage Total 4260 ml Drainage Total 300 ml 380 ml 2290 ml Estimated Blood Loss 120 ml # Bowel Movements 1 Exam General: Pale, elderly male who appears ill but non-toxic and in no acute distress. HEENT: Normocephalic, atraumatic. PERRLA, Anicteric sclera. Mucous membranes dry Lungs: Clear to auscultation bilaterally with no crackles, wheezes, or rhonchi. Cardiovascular: Regular rate/rhythm. No murmurs/rubs/gallops Abdomen: Soft, diffusely tender, nondistended. Colostomy bag with bilious drainage; lower abdomen with wound VAC in place. Hypoactive bowel tones Extremities: Distal pulses weak but intact/equal bilaterally; no cyanosis. Trace edema to ankle bilaterally. Neurological: AOx2, No focal neurologic deficit. Voice is soft, muffled with normal speech IVs and Medications Medications Reviewed: Medications were reviewed in detail Lab and Diagnostics Laboratory Tests Test 04/10/17 04:45 White Blood Count 10.2th/mm3 (3.8-10.1) Red Blood Count 2.06mil/mm3 (4.40-5.80) Hemoglobin 6.4g/dL (13.8-17.2) Hematocrit 20.6% (41.0-50.0) Mean Corpuscular Volume 100.0fL (81-100) Mean Corpuscular Hemoglobin 31.1pg (27.0-35.0) Mean Corpuscular Hemoglobin Concent 31.1% (32.0-37.0) Red Cell Distribution Width 17.9% (12.3-15.4) Platelet Count 1038bil/L (150-400) Neutrophils (%) (Auto) 63.8% (40-74) Lymphocytes (%) (Auto) 14.5% (14-46) Monocytes (%) (Auto) 9.6% (4-12) Eosinophils (%) (Auto) 9.3% (0-5) Basophils (%) (Auto) 1.0% (0-3) Band Neutrophils % 2% (1-5) Prothrombin Time 13.6sec (8.1-12.5) Prothromb Time International Ratio 1.26ratio Sodium Level 144mEq/L (134-144) Potassium Level 3.7mEq/L (3.5-5.2) Chloride Level 109mEq/L (97-108) Carbon Dioxide Level 19mmol/L (18-29) Blood Urea Nitrogen 17mg/dL (8-27) Creatinine 0.65mg/dL (0.76-1.27) Estimat Glomerular Filtration Rate 129mL/min (>59) Glucose Level 82mg/dL (60-99) Calcium Level 8.1mg/dL (8.5-10.1) Total Bilirubin 0.6mg/dL (0.0-1.2) Aspartate Amino Transf (AST/SGOT) 105U/L (0-50) Alanine Aminotransferase (ALT/SGPT) 102U/L (0-44) Alkaline Phosphatase 1598U/L (25-160) Total Protein 5.6g/dL (6.4-8.4) Albumin 2.3g/dL (3.4-5.0) Microbiology 04/07/17 Blood Fungal Culture- Pending 04/04/17 Stool Occult Blood ([place]NGELA) - Positive 03/24/17 MRSA (PCR) - Negative 04/07/17 Urine Culture - No growth Result Diagram: 04/10/17 0445 04/10/175 X-Rays, CTs and MRIs CT ABDOMEN AND PELVIS WITH CONTRAST IMPRESSION: 1. Stable low density fluid collection around the surgical drain when compared with the study dated 03/30/17. No definite rim enhancement to suggest organizing abscess. 2. Decreased pleural effusions and consolidation at the lung bases are with the prior study. Dictated by: Vanessa Torres M.D. on 04/03/2017 at 15:29 04/05/17 - X-RAY CHEST ONE VIEW, PORTABLE IMPRESSION: Persistent left basilar airspace opacity consistent with atelectasis versus aspiration or infection. Approved by: Diane Celeste MD, PhD on 04/05/2017 at 12:25 04/06/17 - X-RAY CHEST ONE VIEW, PORTABLE IMPRESSION: Persistent left basilar airspace opacity consistent with atelectasis versus aspiration or pneumonia. Approved by: Vanessa Torres M.D. on 04/06/2017 at 9:28 . Additional Diagnostics 04/05/17 - NM HIDA SCAN WITH CCK - IMPRESSION: 1. Normal filling of gallbladder. No evidence for acute cholecystitis. 2. Normal contractile response of gallbladder to CCK infusion. Approved by: Ignacia Melgar M.D. on 04/05/2017 at 17:22 US VENOUS LEG DUPLEX BILATERAL- IMPRESSION: No DVT found. Approved by: Jimbo Timmons M.D. on 04/06/2017 at 18:37 04/07/17 - US ABDOMEN, LIMITED - IMPRESSION: 1. Increased hepatic echogenicity noted likely related to fatty infiltration of the liver but other sources of hepatocellular disease cannot be excluded. Recommend clinical correlation. 2. Cholelithiasis with thickened and mildly edematous gallbladder wall which may be related to developing cholecystitis. Correlate clinically. Approved by: Vanessa Torres M.D. on 04/07/2017 at 14:43 04/07/17 - MR ABDOMEN MRCP - IMPRESSION: 1. Cholelithiasis with at least 2 stones in the gallbladder neck. No marked enlargement of the gallbladder or apparent wall thickening. No pericholecystic inflammation. 2. Intrahepatic and extrahepatic bile ducts are normal in caliber. No filling defects are demonstrated. 3. Right kidney is absent. Left kidney appears normal noting exophytic cyst laterally 4. Pathologic fracture L1 . Approved by: Brayden Denise M.D. on 04/07/2017 at 13:32 . Assessment & Plan 71 year old gentleman with a history of CAD with 2 stents, COPD, hyperlipidemia , and right-sided renal cell carcinoma (s/p nephrectomy in October 2016) currently treated outpatient with Pazopanib who presented to the CCU hypotensive and intubated status post sigmoid colectomy with colostomy for perforated diverticulitis. GI consulted for abnormal LFTs. Abnormal LFT(Mixed cholestatic/hepatitis) -Elevated liver function labs including alkaline phosphatase. Likely multifactorial secondary to cholestasis and TPN. -Extrahepatic biliary obstruction ruled out with ultrasound nad MRCP. HIDA scan shows normal filling of the gallbladder. -LFTs trended down slightly -Continue to follow LFTs -Discontinue all non essential medications -PT/INR daily. Normocytic Anemia -Hb/Hct trending down slowly and thus unlikely to represent acute bleed.Stools found to be guaiac positive. However, patient without overt bleeding or obvious GI loss and no other source of bleeding identified. -s/p infused with iron sodium gluconate. -H/H trended down, most recently Hb 6.4 and patient transfused pRBCs -Continue to monitor H/H Pancreatic Cyst in the Body -8mm cyst noted -Recommend repeat CT with pancreas protocol in 3 months Additional problems managed by primary medicine team: Perforated diverticulitis with intra-abdominal abscess. S/P sigmoid colectomy and descending colostomy -Fevers of unknown origin -Acute Encephalopathy, not present on admission, active -Acute Hypoxic Respiratory Failure due to surgery and COPD, chronic -Coronary artery disease, chronic -Renal cell carcinoma of right kidney, chronic -Diabetes mellitus, type 2, chronic -Hypertension, chronic -Hyperlipidemia, chronic . GI Prophylaxis: Not indicated VTE Mechanical Devices: Intermittant Pneumatic CD Resuscitation Status: CPR: Attempt Resuscitation Attending Statement pt seen and examined agree with resident physician note follow up on chronic liver disease labs Courtney Gibson DO Apr 10, 2017 10:04 Murray Gama MD Apr 12, 2017 15:01
--- NOTE | 2017-04-10 14:46 | NUR ---
NUTRITION FOLLOW UP: ASSESS: 71 YO M admitted with perforated diverticulitis, pneumoperitoneum with peritonitis, s/p exploratory laparotomy with sigmoid/descending colon resection, Diallo's and end-descending colostomy. Pt extubated 03/31. TPN was tapered off 04/06. Diet advanced today to pureed with pudding thick liquids. PO intake has been poor on stimulation diet. PMHx: Renal cell cancer with current chemotherapy, immunosuppression, R. nephrectomy, CAD, COPD, HTN, dyslipidemia, type 2 diabetes, hiatal hernia, GI bleed. DIET: Pureed, pudding thick liquids. Previous PO intake on stimulation diet: refusal-25%. LABS: Cr 0.65, CA 8.1, AST 105, ALT 102, Alk Phos 1595, Alb 2.3 MEDICATIONS: Reviewed. Lactulose. GI: Stool via colostomy. SKIN: Metal Sorter following. Abdominal wound. ANTHROPOMETRICS: Current Wt: 67.5 kg (? accuracy of wt), BMI: 19.6 kg/m2. Admit wt 88 kg, IBW: 83.64 kg. ESTIMATED NEEDS: Healing, GI Calories: 5938-2182 kcal/day (25-30 kcal/kg BW) Protein: 105-135 kcal/day (1.2-1.5 g/kg BW) Fluid: Approx. 2700 mL (30 mL/kg BW) NUTRITION DIAGNOSIS: 1) Inadequate oral intake related to altered GI function, as evidenced by colectomy/colostomy, stimulation diet refusal - PERSISTS. 2) Chew/swallow difficulty related to AMS/weakness as evidenced by need for stimulation diet per ST - IMPROVING. INTERVENTION: 1) Continue to advance diet per ST. Will continue Magic Cup on all trays to maximize kcal/pro intake. 2) If poor PO intake continues, consider enteral nutrition. Recommend Vital 1.5 initiated at 10 ml/hr and advanced by 10ml q 6 hr to goal rate of 75 ml/hr to provide 2587 kcal and 115 g protein (100% estimated needs). If no IVF, flush 95 ml q 2 hr. MONITOR/EVALUATE: PO intake, diet advance/tolerance, wt, labs, GI/nutrition status. Follow per high nutrition risk guidelines.
--- NOTE | 2017-04-10 16:28 | PCM.PNMED ---
Subjective Date of Service Apr 10, 2017 Subjective Subjective: Patient states that he is feeling well today. He continues to be more cognitively appropriate as the days go on. He knows where he is, who he is , and that the president is a mikey with blond flowing hair, although he could not remember the name. Events Overnight: No acute events overnight. ROS: Denies fever/chills, nausea/vomiting, headache, weakness, abdominal pain, chest pain, shortness of breath, increased swelling in hands or feet. Exam Vital Signs Vital Sign - Last Date Time Temp Pulse Resp B/P Pulse Ox O2 Delivery O2 Flow Rate FiO2 04/10/17 15:49 37.1 120 18 111/57 96 Room Air 04/05/17 00:07 Intake and Output 04/09/17 04/09/17 04/10/17 Cumulative From/Thru 15:00 23:00 07:00 03/24/17 14:24 - 04/10/17 05:26 Intake Total 342 ml 344 ml 28252 ml Output Total 1082 ml 980 ml 55475 ml Balance -740 ml -636 ml 800 ml Intake Oral 0 ml 0 ml 50 ml IV Total 342 ml 344 ml 84577 ml Tube Feeding 40 ml TPN/PPN 68569 ml Tube Irrigant 120 ml Output Urine Total 750 ml 600 ml 64746 ml Stool Total 32 ml 1152 ml Gastric Drainage Total 4260 ml Drainage Total 300 ml 380 ml 2290 ml Estimated Blood Loss 120 ml # Bowel Movements 1 Exam General: No acute distress, responsive to verbal stimulation, talking in phrases HEENT: Normocephalic, atraumatic. External ears without defect. Pupils equal, round, and reactive to light and accommodation. Anicteric sclerae, moist conjunctivae. Cardiovascular: Regular rate and rhythm with no murmurs, rubs, or gallops appreciated Pulmonary: Patient continues to have Mild rhonchi, no rales, no wheezes. Breathing well on room air. Abdomen: Bowel tones present. Soft, slightly distended, non-tender, ostomy putting out brown fluid. Suction VAC in place over surgical abdominal wound. Extremities: No clubbing, cyanosis, edema, Pulses intact. Skin: Normal temperature, turgor, and texture; no rash, ulcers, or subcutaneous nodules appreciated. Neurological: Slurred speech with daily improvement. Cranial nerves grossly intact. Patient appears to have normal movement of arms and legs Psychiatric: Patient appears upbeat, normal mood and affect. Patient remains marginally confused, although appears to be improving. Multiple reported hallucinations. IVs and Medications IV Fluids 100 mL normal saline delivered if IV medications. Medications Reviewed: Medications were reviewed in detail Lab and Diagnostics Result Diagram: 04/10/17 1100 04/10/17 0445 Microbiology Blood culture 2/3 bottles positive for Gram + cocci X-Rays, CTs and MRIs CT ABDOMEN AND PELVIS WITH CONTRAST IMPRESSION: 1. Stable low density fluid collection around the surgical drain when compared with the study dated 03/30/17. No definite rim enhancement to suggest organizing abscess. 2. Decreased pleural effusions and consolidation at the lung bases are with the prior study. Dictated by: Vanessa Torres M.D. on 04/03/2017 at 15:29 04/05/17 - X-RAY CHEST ONE VIEW, PORTABLE IMPRESSION: Persistent left basilar airspace opacity consistent with atelectasis versus aspiration or infection. Approved by: Diane Celeste MD, PhD on 04/05/2017 at 12:25 04/06/17 - X-RAY CHEST ONE VIEW, PORTABLE IMPRESSION: Persistent left basilar airspace opacity consistent with atelectasis versus aspiration or pneumonia. Approved by: Vanessa Torres M.D. on 04/06/2017 at 9:28 . Additional Diagnostics 04/05/17 - NM HIDA SCAN WITH CCK - IMPRESSION: 1. Normal filling of gallbladder. No evidence for acute cholecystitis. 2. Normal contractile response of gallbladder to CCK infusion. Approved by: Ignacia Melgar M.D. on 04/05/2017 at 17:22 US VENOUS LEG DUPLEX BILATERAL- IMPRESSION: No DVT found. Approved by: Jimbo Timmons M.D. on 04/06/2017 at 18:37 04/07/17 - US ABDOMEN, LIMITED - IMPRESSION: 1. Increased hepatic echogenicity noted likely related to fatty infiltration of the liver but other sources of hepatocellular disease cannot be excluded. Recommend clinical correlation. 2. Cholelithiasis with thickened and mildly edematous gallbladder wall which may be related to developing cholecystitis. Correlate clinically. Approved by: Vanessa Torres M.D. on 04/07/2017 at 14:43 04/07/17 - MR ABDOMEN MRCP - IMPRESSION: 1. Cholelithiasis with at least 2 stones in the gallbladder neck. No marked enlargement of the gallbladder or apparent wall thickening. No pericholecystic inflammation. 2. Intrahepatic and extrahepatic bile ducts are normal in caliber. No filling defects are demonstrated. 3. Right kidney is absent. Left kidney appears normal noting exophytic cyst laterally 4. Pathologic fracture L1 . Approved by: Brayden Denise M.D. on 04/07/2017 at 13:32 . Assessment & Plan 71 year old gentleman with a history of CAD with 2 stents, COPD, hyperlipidemia , and right-sided renal cell carcinoma (s/p nephrectomy in October 2016) currently treated with Pazopanib presenting to the CCU hypotensive and was initially intubated status post sigmoid colectomy with descending colostomy for perforated diverticulitis. Fevers of unknown origin, not present on admission, active - None noted since 04/07 consistent with possible side effect of micafungin as this was discontinued - Possible but unlikely due to progressive neoplasm 04/08 discuss with regional oncologist who states that panzopunib and dexamethasone are non-essential medications and can be held for a total of 4-6 weeks while the patient becomes stabilized. - Ultrasounds of the lower limbs conducted to rule out DVT, negative - UA shows no obvious urinary source of infection , culture reflexed, no growth to date - CT, ultrasound suggests cholelithiasis with possible cholecystitis, other results as above - HIDA scan suggests no cholecystitis at this time, other results as above - MRCP shows no evidence of cholecystitis or choledocholithiasis results as above - ID following, recommends removing the PICC line and culturing the tip, and consideration for discontinuing meropenem as this is unlikely to be a bacterial infection. - General surgery following, recommends continuation of antibiotics at this time - GI following, suggesting lactulose administration Elevated liver function labs including alkaline phosphatase, POA, acute. Active -Patient tolerating stim diet as of 04/07, speech therapy to evaluate the patient again and advance diet as appropriate. Likely due to cholestasis and TPN, patient began oral feedings on 04/06 continue to monitor. -Patient has had high normal Alk Phos since admission, numbers went down for the first time on 04/08 -Ultrasound of the abdomen shows a prominent gallbladder (4.2 mm) Developing cholecystitis cannot be excluded. -GGT 520 consistent with cholecystitis and/or common bile duct obstruction -HIDA scan obtained on 04/05 shows no evidence of cholecystitis. Results as above -MRCP shows no evidence of cholecystitis or choledocholithiasis Results as above -GI following with recommendations to discontinue unnecessary medications, due to negative MRCP, suggests cholecystostomy, no ERCP indicated at this time. -continue to monitor . Acute Encephalopathy, not present on admission, active - As the patient continues to be more alert and vocal post extubation, Level of encephalopathy tends to wax and wane, slowly improving - Possible infectious source, or inflammatory process, as he continues to have fevers of unknown origin. Continue workup for possible infection/inflammation - Possible cancerous progression with brain metastases, however this has not been demonstrated on any brain scans obtained thus far. Consider MRI if not improving. - Possible Hepatic encephalopathy based on elevations in liver enzymes, although unlikely. Ammonia levels within normal limits. GI suggested trial of lactulose 1 - Possible anoxic brain injury at some point between his initial surgery and extubation. - Continue to monitor Hypotension, acute. Active -Patient is mildly hypotensive, labs suggesting mild dehydration. - IV bolus 500 mL wide open, recheck H&H, BMP post bolus Normocytic anemia, present on admission, active - Hemoglobin slowly trending down since admission - On the morning of 04/10 hgb labs showed 6.4, rechecked at 7.8 hours later, possibly lab error, continue to monitor closely - Stools found to be guaiac positive, however no obvious GI loss, and no other sources of bleeding noted - Patient's blood count is trending down very slowly and is unlikely to represent acute bleed. - Consider transfusion if patient remains less than 7.0 on [id number] lab draws. - Patient infused with iron sodium gluconate on 04/08 Perforated diverticulitis with intra-abdominal abscess. S/P sigmoid colectomy and descending colostomy, stable -Ostomy output appropriate -[place] and ARCELIA drain should remain for now, surgery continues to follow -Continue IV meropenem for now -Repeat CT abdomen 04/03 shows resolving pleural effusions, mild abdominal fluid with no evidence of abscess. Acute Hypoxic Respiratory Failure due to surgery and COPD, chronic. Present on admission. Resolved -Pt intubated and sedated in the CCU. Extubated on 03/31 -Patient currently breathing well on room air Coronary artery disease, chronic. Present on admission. stable. -Pt with prior UT and two stents. Presented with mild chest pain with negative cardiac enzymes and no acute ischemic changes noted on ECG. -Continue home simvastatin and aspirin when able -Continuous cardiac monitoring. Renal cell carcinoma of right kidney, chronic. Presumed stable. -Pt is s/p nephrectomy in October 2016, previously treated with Pazopanib and dexamethasone. -Per recommendations of oncology Pazopanib and dexamethasone may be held for 4- 6 weeks while patient stabilizes. -CT abd/pelvis showed a renal cyst as above. -Resume oral medications when able Diabetes mellitus, type 2, chronic. Present on admission. Presumed stable. -Current outpatient therapy is Metformin 500mg PO BID -Hold Metformin -Continue tight glucose control. Per recommendations of general surgery if > 180 use insulin drip. Hypertension, chronic. Present on admission. Stable -Patient remains tachycardic with mildly low blood pressures -Held home antihypertensives: Lisinopril 40mg PO daily, Metoprolol succinate 50mg PO daily -Continue IV metoprolol 2.5 mg every 4 Hyperlipidemia, chronic. Present on admission. Presumed stable. -Continue home dose statin (Simvastatin 20mg PO HS) when able GI Prophylaxis: Not indicated VTE Mechanical Devices: Intermittant Pneumatic CD Resuscitation Status: CPR: Attempt Resuscitation Attending Statement The patient was seen and examined together with Dr. Suggs on 04/10/2017 and I agree with the history, exam and plan as outlined in the note above. . Mode Suggs DO Apr 10, 2017 16:28 Darrius Mcmahan MD Apr 13, 2017 18:01
[2017-04-10] MEDS ORDERED: 0.9% Sodium Chloride 500 ML IV ONE (16:45)
--- NOTE | 2017-04-10 16:57 | NUR ---
Social Work: Continued Discharge Planning/Multidisciplinary Rounds D: Pt discussed in multidisciplinary rounds; the patient is not yet medically stable for discharge to SNF. Pt has been accepted at [facility] with Dr. Parmar to follow. The patient has been on stim diet with poor PO intake. ST has advanced the patient's diet today to pureed wih pudding thick liquids and are continuing to assess pt's ability to safely swallow. TPN was tapered on 04/06 after extubation. Case management continues to follow patient's nutritional needs to determine needs for SNF discharge. A: Pt who will require continued rehab and nursing needs at discharge P:Anticipate pt to discharge to [facility] with Dr. Parmar to follow. [facility] has also been referred however had yet to determine if they can accept the patient. [employer] to continue to follow to assess for unmet d/c needs and coordinate SNF discharge [facility]
--- NOTE | 2017-04-10 18:32 | NUR ---
Multidisciplinary Communication 0715 - Spoke to Dr. Sagastume this morning about his care. He said that he discontinued the patient's ARCELIA drain as there was very little output. He said from his perspective he could discharge to a rehab facility. 0745 - The Blood [facility] called to say his 2 units of Packed Red Blood Cells (PRBCs) were ready. 45 - Discussed his care with Dr. Mcmahan and the rest of the multidisciplinary care team during morning rounds. Pointed out to Dr. Mcmahan that it appeared his blood transfusion order had been discontinued, but his H/H was 6.4/20.6. Asked if he wanted the blood transfusion administered. He said to hold off for now and he would check on the situation. Also, informed Dr. Mcmahan that an insulin drip order was still active in his chart. The insulin drip was discontinued. 1135 - His H/H redraw came back as 7.8/25.6. Dr. Mcmahan said to not give him the blood transfusion, to follow-up with Physical Therapy to see how he did, and to contact Speech Therapy to try and advance his diet. Called ST and left a message. Contacted PT who said that they had managed to get him sitting at the edge of the bed, but that he had refused to stand as he was fearful of falling. He had also complained of mild dizziness. 1145 - Spoke to Mita from who said that she would change his diet for lunch to try and increase his appetite and come to assess him this afternoon. 1350 - Paged Dr. Suggs to discuss his heart rate which has been mostly sustaining in the 120s. 1420 - Found Dr. Suggs in the hallway and spoke to him about the patient's heart rate. He said he would consult with Dr. Mcmahan about what to do. Notified him of ST and PT's reports/plan and that his blood pressures had become slightly lower from the 120s/130s systolic to the 100s/110s systolic. 1431 - [facility] called to say that his heart rate appeared to be trending up. Notified them that Dr. Suggs had been notified and said he would look into correcting his heart rate. 1907 - Noted that a 500 mls bolus of Normal Saline had been ordered. Paged Dr. Suggs for clarification. He said that after consulting with Dr. Mcmahan and noting his labs it appeared he was dehydrated. He said by giving him a bolus he hoped his blood pressure would increase and that his heart rate would decrease. He said he would pass along to the night hospitalist team to redraw his labs after the bolus. Administered the bolus. 1834 - Spoke to his on the phone after receiving confirmation from her. Gave her an update. She said she had a difficult, long day trying to replace one of their car's tires as it had been slashed. She thanked this nurse for all the wonderful care her had been receiving during his hospital stay. Care continues.
[2017-04-11] VITALS (11 sets, daily range): BP systolic 113–145; BP diastolic 71–93; PULSE 99–138; RESP 24–32; O2SAT 95–98
[2017-04-11] MEDS: Heparin 5,000 Unit/mL Inj SUBQ SCH ×3 (00:12→17:25)
[2017-04-11] MEDS: MeTOProlol 1 mg/mL 5 mL Inj IVPUSH SCH ×6 (00:12→20:39)
--- NOTE | 2017-04-11 03:26 | NUR ---
P) LOC/respiratory/cardiac Pt. with decreased breath sounds bilat though R>L, SPO2 in upper 90's on room air, pt. very restless tonight, has not slept even an hour, hallucinating, trying to get out of bed but very weak. Oriented x1 only. Cardiac rhythm generally sinus tach in the low 100's but did have a 4-5 minute run of SVT in the 150's, was talking and asymptomatic. I) Frequent reorientation, turning q2h and floating heels when he allows. E) Resting and fidgeting, wants to leave by the window or go to bed, can not seem to understand that he is in bed, overall he is very pleasant.
[2017-04-11 04:32] LABS: EOSINOPHILS % (AUTO) 7.8 % (0-5); MONOCYTES % (AUTO) 11.4 % (4-12); Mean Corpuscular Hemoglobin 30.2 pg (27.0-35.0); Mean Corpuscular Volume 98.8 fL (81-100); NEUTROPHILS % (AUTO) 62.3 % (40-74); Platelet Count 940 bil/L (150-400)
--- NOTE | 2017-04-11 08:09 | PROG NOTE ---
[address] [address] PROGRESS NOTE PATIENT: JOSAFAT SOLIS : 1945 MR#: [id number] ADMIT: 03/24/2017 JOB ID: [id number] DATE: 04/11/2017 SUBJECTIVE: The patient is seen in followup. According to the nurses, he did not really sleep overnight and was hallucinating. This morning he is not complaining of any abdominal pain and no nausea. OBJECTIVE: Temperature 36.6, pulse 99, blood pressure 130/93, saturation 98% on room air. General: He is sitting up in bed, in no acute distress. Chest is clear. Heart: Regular rate and rhythm. No murmurs. Abdomen is soft, nondistended, nontender. Wound VAC is in place over his lower midline wound. The colostomy in the left abdomen is functional with 730 cc of stool yesterday. The prior ARCELIA drain site is clean with no erythema. Neuro: He is alert and interactive, but does not answer questions appropriately with little insight. LABORATORIES: White count is 9.3, hematocrit 24.5, platelets 940. Creatinine 0.64. Glucose 105. Bilirubin 0.7, AST 134, ALT 113, alkaline phosphatase 1815. ASSESSMENT AND PLAN: A 71-year-old man status post Diallo procedure for perforated sigmoid diverticulitis with feculent peritonitis. He continues to make slow progress but his mental status remains the main issue. From an abdominal standpoint, he is doing well. We will continue Wound VAC changes. Antibiotics have been stopped. From a purely surgical standpoint, I think he could be discharged to a rehab facility at any point when he is deemed medically stable.
--- NOTE | 2017-04-11 08:14 | PROG NOTE ---
[address] [address] PROGRESS NOTE PATIENT: JOSAFAT SOLIS : 1945 MR#: [id number] ADMIT: 03/24/2017 JOB ID: [id number] DATE: 04/11/2017 REASON FOR FOLLOWUP: Complicated intra-abdominal infection, now with cholestatic hepatitis. INTERVAL HISTORY: This morning, the patient is quite alert and awake, and states he feels quite well. He denies any fevers, chills, shortness of breath or cough. He has minimal abdominal pain at the site of the wound VAC, but no pain in the right upper quadrant. No nausea or vomiting. PHYSICAL EXAMINATION: Reveals an afebrile, elderly gentleman. Temp 38.6, pulse 99, respiratory rate in the 20s, blood pressure 130/93. He is saturating well on room air. Eyes without scleral icterus. Oral cavity without thrush or pharyngitis. Lungs relatively clear. Cardiac tones without new murmur. Abdomen with a midline wound VAC below the umbilicus as well as the colostomy. There is no right upper quadrant tenderness and really no abdominal tenderness to exam. No skin rash. His peripheral edema is rapidly receding. LABORATORIES: Include white count normal today 9300, still 8% eosinophils, but that is improved from 9% yesterday. Creatinine stable at 0.64. ALT and AST are relatively unchanged, but the alk phos has increased again from 0560-1923. Albumin 2.3. Micro studies include negative blood cultures from the , , and of this month. Recall that the MRCP done on the showed cholelithiasis without apparent cholecystitis. IMPRESSION: This patient continues to look better on a day-by-day basis. At this point, he is much more comfortable and, though still not fully oriented, is able to provide more and better historical data. He has absolutely no symptoms of infection at this point, and I think our only concern is his worsening cholestatic hepatitis which may have been due to total parenteral nutrition (TPN), his critical illness or medications. At this point, however, he is not receiving much in the way of medicines and all antibiotics have been stopped, as has his TPN. His critical illness is certainly resolved, and I hope that his hepatitis starts to improve. RECOMMENDATIONS: 1. Will continue to observe the patient off antibiotics. 2. Will follow along closely with you.
[2017-04-11] MEDS: Lactulose 20 Gm/30 mL 30 mL Syrup PO SCH (08:19)
--- NOTE | 2017-04-11 13:42 | NUR ---
Up to side of bed with PT, HR 160s sustained, patient distressed, deferred attempt to chair.
--- NOTE | 2017-04-11 13:46 | NUR ---
Inpatient Wound and Ostomy Nurse Patient seen for wound care and ostomy wafer change. Peristomal skin intact, no open areas and no evidence of yeast or infection. Stoma margins are slightly redder than surrounding skin. Stoma is retracted to subcu level, darker in some areas, cook boat in others. One prominent loop of pink bowel is noted in RUQ of stoma. Stringy slough is well-adhered, will pull up from stoma, but not off. Loose, dark brown stool is mildly odorous. Os is centered. Skin was cleansed and dried well. An Amanda ring was opened to stoma size and shape and placed, then a convex moldable wafer placed over Amanda with clear pouch. Abdominal NPWT dressing intact, seal has maintained 4.5 days. Wound measured 7 cm L x 3 cm W x 2.5 cm D. Wound bed beefy red and granulating, no slough noted. No signs of infection; patient complained of pain with drape removal, otherwise, no significant complaints during wound care. Interior of wound was cleansed well with NS, blotted dry, then NPWT was applied, black foam only, stoma paste to navel, 125 low continuous suction, seal obtained quickly. Patient conversant and cooperative throughout care, but confused. CWON will see patient Monday.
--- NOTE | 2017-04-11 16:27 | PCM.PNMED ---
Subjective Date of Service Apr 11, 2017 Subjective Subjective: Patient slowly regaining cognitive ability, however remains confused. Sitting up in bed on exam, currently states that he has no complaints. Events Overnight: No acute events overnight. ROS: Denies fever/chills, nausea/vomiting, headache, weakness, abdominal pain, chest pain, shortness of breath, increased swelling in hands or feet. Exam Vital Signs Vital Sign - Last Date Time Temp Pulse Resp B/P Pulse Ox O2 Delivery O2 Flow Rate FiO2 04/11/17 13:24 120 04/11/17 11:44 36.7 30 118/73 97 Room Air 04/05/17 00:07 Intake and Output 04/10/17 04/10/17 04/11/17 Cumulative From/Thru 15:00 23:00 07:00 03/24/17 14:24 - 04/11/17 06:16 Intake Total 255 ml 631 ml 86673 ml Output Total 900 ml 41776 ml Balance -645 ml 631 ml 786 ml Intake Oral 0 ml 0 ml 50 ml IV Total 255 ml 631 ml 20281 ml Tube Feeding 40 ml TPN/PPN 56796 ml Tube Irrigant 120 ml Output Urine Total 450 ml 50401 ml Stool Total 1152 ml Gastric Drainage Total 4260 ml Drainage Total 450 ml 2740 ml Estimated Blood Loss 120 ml # Bowel Movements 1 Exam General: No acute distress, responsive to verbal stimulation, talking in phrases HEENT: Normocephalic, atraumatic. External ears without defect. Pupils equal, round, and reactive to light and accommodation. Anicteric sclerae, moist conjunctivae. Cardiovascular: Regular rate and rhythm with no murmurs, rubs, or gallops appreciated Pulmonary: Patient continues to have Mild rhonchi, no rales, no wheezes. Breathing well on room air. Abdomen: Bowel tones present. Soft, slightly distended, non-tender, ostomy putting out brown fluid. Extremities: No clubbing, cyanosis, edema, Pulses intact. Skin: Normal temperature, turgor, and texture; no rash, ulcers, or subcutaneous nodules appreciated. Neurological: Slurred speech with daily improvement. Cranial nerves grossly intact. Patient appears to have normal movement of arms and legs Psychiatric: Patient appears upbeat, normal mood and affect. Patient remains marginally confused, although appears to be improving. Multiple reported hallucinations. IVs and Medications IV Fluids 1000 mL normal saline delivered with IV medications. Medications Reviewed: Medications were reviewed in detail Lab and Diagnostics Result Diagram: 04/11/1740904/11/17 041 Microbiology Blood culture 2/3 bottles positive for Gram + cocci X-Rays, CTs and MRIs CT ABDOMEN AND PELVIS WITH CONTRAST IMPRESSION: 1. Stable low density fluid collection around the surgical drain when compared with the study dated 03/30/17. No definite rim enhancement to suggest organizing abscess. 2. Decreased pleural effusions and consolidation at the lung bases are with the prior study. Dictated by: Vanessa Torres M.D. on 04/03/2017 at 15:29 04/05/17 - X-RAY CHEST ONE VIEW, PORTABLE IMPRESSION: Persistent left basilar airspace opacity consistent with atelectasis versus aspiration or infection. Approved by: Diane Celeste MD, PhD on 04/05/2017 at 12:25 04/06/17 - X-RAY CHEST ONE VIEW, PORTABLE IMPRESSION: Persistent left basilar airspace opacity consistent with atelectasis versus aspiration or pneumonia. Approved by: Vanessa Torres M.D. on 04/06/2017 at 9:28 . Additional Diagnostics 04/05/17 - NM HIDA SCAN WITH CCK - IMPRESSION: 1. Normal filling of gallbladder. No evidence for acute cholecystitis. 2. Normal contractile response of gallbladder to CCK infusion. Approved by: Ignacia Melgar M.D. on 04/05/2017 at 17:22 US VENOUS LEG DUPLEX BILATERAL- IMPRESSION: No DVT found. Approved by: Jimbo Timmons M.D. on 04/06/2017 at 18:37 04/07/17 - US ABDOMEN, LIMITED - IMPRESSION: 1. Increased hepatic echogenicity noted likely related to fatty infiltration of the liver but other sources of hepatocellular disease cannot be excluded. Recommend clinical correlation. 2. Cholelithiasis with thickened and mildly edematous gallbladder wall which may be related to developing cholecystitis. Correlate clinically. Approved by: Vanessa Torres M.D. on 04/07/2017 at 14:43 04/07/17 - MR ABDOMEN MRCP - IMPRESSION: 1. Cholelithiasis with at least 2 stones in the gallbladder neck. No marked enlargement of the gallbladder or apparent wall thickening. No pericholecystic inflammation. 2. Intrahepatic and extrahepatic bile ducts are normal in caliber. No filling defects are demonstrated. 3. Right kidney is absent. Left kidney appears normal noting exophytic cyst laterally 4. Pathologic fracture L1 . Approved by: Brayden Denise M.D. on 04/07/2017 at 13:32 . Assessment & Plan 71 year old gentleman with a history of CAD with 2 stents, COPD, hyperlipidemia , and right-sided renal cell carcinoma (s/p nephrectomy in October 2016) currently treated with Pazopanib presenting to the CCU hypotensive and was initially intubated status post sigmoid colectomy with descending colostomy for perforated diverticulitis. Elevated liver function markers including alkaline phosphatase, POA, acute. Active -Patient has had high normal Alk Phos since admission which continues to trend upward - Hepatic enzymes slightly elevated in parallel - Ultrasound of the abdomen shows a prominent gallbladder (4.2 mm) Developing cholecystitis cannot be excluded. - GGT 520 consistent with cholecystitis and/or common bile duct obstruction - HIDA scan obtained on 04/05 shows no evidence of cholecystitis. Results as above - MRCP shows no evidence of cholecystitis or choledocholithiasis Results as above - Patient remains asymptomatic, consider cholecystostomy in the event that pain/ discomfort develops, continue to monitor. Normocytic anemia, present on admission, active - Hemoglobin slowly trending down since admission - On the morning of 04/10 hgb labs showed 6.4, rechecked at 7.8 hours later, possibly lab error, continue to monitor closely - Stools found to be guaiac positive, however no obvious GI loss, and no other sources of bleeding noted - Patient's blood count is trending down very slowly and is unlikely to represent acute bleed. - Consider transfusion if patient remains less than 7.0 on [id number] lab draws. - Patient infused with iron sodium gluconate on 04/08 Protein calorie malnutrition, acute, active -Patient tolerating stim diet as of 04/06, speech therapy to evaluate the patient again and advance diet as appropriate. - Speech therapy following, recommendations appreciated - Olanzapine and dronabinol added to stimulate patient diet Acute Encephalopathy, not present on admission, active - As the patient continues to be more alert and vocal post extubation, Level of encephalopathy tends to wax and wane, slowly improving - Multiple possibilities previously discussed, however no interventions planned at this time. - Continue to monitor Fevers of unknown origin, not present on admission, resolved - Temperatures within normal limits for the last several days. - None noted since 04/07 consistent with possible side effect of micafungin as this was discontinued - Other possibilities discussed previously - ID following, meropenem discontinued Hypotension, acute. Active -Patient is mildly hypotensive, labs suggesting mild dehydration. - IV bolus 500 mL wide open appears to have decreased tachycardia - Patient started on 60 mL/hr half-normal saline. - Continue to monitor closely Perforated diverticulitis with intra-abdominal abscess. S/P sigmoid colectomy and descending colostomy, stable -Ostomy output appropriate -[place] and ARCELIA drain should remain for now, surgery continues to follow -Continue IV meropenem for now -Repeat CT abdomen 04/03 shows resolving pleural effusions, mild abdominal fluid with no evidence of abscess. Acute Hypoxic Respiratory Failure due to surgery and COPD, chronic. Present on admission. Resolved -Pt intubated and sedated in the CCU. Extubated on 03/31 -Patient currently breathing well on room air Coronary artery disease, chronic. Present on admission. stable. -Pt with prior [place] and two stents. Presented with mild chest pain with negative cardiac enzymes and no acute ischemic changes noted on ECG. -Continue home simvastatin and aspirin when able -Continuous cardiac monitoring. Renal cell carcinoma of right kidney, chronic. Presumed stable. -Pt is s/p nephrectomy in October 2016, previously treated with Pazopanib and dexamethasone. -Per recommendations of oncology Pazopanib and dexamethasone may be held for 4- 6 weeks while patient stabilizes. -CT abd/pelvis showed a renal cyst as above. -Resume oral medications when able Diabetes mellitus, type 2, chronic. Present on admission. Presumed stable. -Current outpatient therapy is Metformin 500mg PO BID -Hold Metformin -Continue tight glucose control. Per recommendations of general surgery if > 180 use insulin drip. Hypertension, chronic. Present on admission. Stable -Patient remains tachycardic with mildly low blood pressures -Held home antihypertensives: Lisinopril 40mg PO daily, Metoprolol succinate 50mg PO daily -Continue IV metoprolol 2.5 mg every 4 Hyperlipidemia, chronic. Present on admission. Presumed stable. -Continue home dose statin (Simvastatin 20mg PO HS) when able GI Prophylaxis: Not indicated VTE Mechanical Devices: Intermittant Pneumatic CD Resuscitation Status: CPR: Attempt Resuscitation Attending Statement The patient was seen and examined together with Dr. Suggs on 04/11/2017 and I agree with the history, exam and plan as outlined in the note above. . Mode Suggs DO Apr 11, 2017 16:27 Darrius Mcmahan MD Apr 13, 2017 18:02
--- NOTE | 2017-04-11 17:30 | NUR ---
A/O and in good spirits. Vital signs stable, afebrile. Continued tachycardia with activity. Eating poorly but denies abd discomfort or nausea. SVT 170s X 1 episode today, asymptomatic. Up with PT to bedside today, did not tolerate more activity. Supportive visited.
[2017-04-12] VITALS (7 sets, daily range): BP systolic 121–148; BP diastolic 68–79; PULSE 101–123; RESP 16–34; O2SAT 94–98
[2017-04-12] MEDS: Heparin 5,000 Unit/mL Inj SUBQ SCH ×3 (00:21→17:14)
[2017-04-12] MEDS: MeTOProlol 1 mg/mL 5 mL Inj IVPUSH SCH ×3 (00:23→10:30)
--- NOTE | 2017-04-12 04:56 | NUR ---
Confusion Patient remains quite disoriented this evening. Mumbles and is incoherent in speech. Restless, kicking off covers and throwing his legs over side of bed. Voided into brief after patterson removal and bladder scan revealed 20ml PVR. Was able to sleep for several hours comfortably.
[2017-04-12 07:19] LABS: Mean Corpuscular Hemoglobin 30.7 pg (27.0-35.0); Mean Corpuscular Volume 98.8 fL (81-100)
--- NOTE | 2017-04-12 08:28 | PROG NOTE ---
[address] [address] PROGRESS NOTE PATIENT: JOSAFAT SOLIS : 1945 MR#: [id number] ADMIT: 03/24/2017 JOB ID: [id number] DATE: 04/12/2017 SUBJECTIVE: The patient is seen in followup. He remains profoundly confused this morning. He does not know where he is or what year it is. He thinks he arrived at the hospital yesterday. He is not complaining of abdominal pain or nausea. His appetite is good. OBJECTIVE: Temperature 36.6, pulse 101, blood pressure 148/71, saturation 98% on room air. General: He is resting in bed in no acute distress. Abdomen is soft, nondistended, nontender. Wound VAC is intact over his lower midline wound. There is no erythema of the abdominal wall. There is significant stool in his colostomy appliance. LABORATORIES: White count is 9.8, hemoglobin 7.4, hematocrit 23.8, platelets 845. Chemistry is pending. ASSESSMENT AND PLAN: A 71-year-old man with perforated sigmoid diverticulitis with feculent peritonitis status post Diallo's procedure. Main ongoing issue is mental status. There is no sign of intraabdominal infection. For his abdominal wound recommend continued wound VAC therapy. General Surgery will follow peripherally.
--- NOTE | 2017-04-12 09:29 | PROG NOTE ---
[address] [address] PROGRESS NOTE PATIENT: JOSAFAT SOLIS : 1945 MR#: [id number] ADMIT: 03/24/2017 JOB ID: [id number] DATE: 04/12/2017 INFECTIOUS DISEASE FOLLOW UP NOTE: REASON FOR FOLLOWUP: Cholestatic hepatitis following complicated intra-abdominal infection. INTERVAL HISTORY: Overnight, the patient has no fevers, chills or sweats. He says he is feels weak and tired but otherwise no focal pulmonary or GI complaints. PHYSICAL EXAMINATION: Reveals an afebrile gentleman in no acute distress. Temperature 36.8, pulse 100, blood pressure 148/71. He is saturating well on room air and he is in no acute distress sitting up in a chair today which is new. His right upper extremity PICC line looks benign. His oral cavity is negative. His lungs fairly clear posteriorly. Abdomen without focal tenderness. LABORATORIES: With white count stable at 9800, his creatinine stable 0.6. His LFTs are finally starting to improve. His AST has dropped to 97. His ALT has dropped to 99 and his alk phos has dropped to 1548 from yesterday's peak of 1815. No new cultures are available. Our fungal blood cultures from the are negative as are routine blood cultures and urine culture from the . IMPRESSION: This patient seems to have turned the corner in multiple respects and is now steadily improving. His mental status is still a bit mixed at times though today he is certain about where he is and has a reasonable idea of current events as he knows the president. I think overall there is no additional evidence for infection and his cholestatic hepatitis is starting to improve so ID is going to go ahead and sign off. RECOMMENDATIONS: 1. No antibiotics. 2. ID is going to sign off at this point. Please do not hesitate to call if there are additional questions or problems going forward.
[2017-04-12] MEDS: Lactulose 20 Gm/30 mL 30 mL Syrup PO SCH (10:29)
--- NOTE | 2017-04-12 11:09 | NUR ---
NUTRITION FOLLOW UP: ASSESS: 71 YO M admitted with perforated diverticulitis, pneumoperitoneum with peritonitis, s/p exploratory laparotomy with sigmoid/descending colon resection, Diallo's and end-descending colostomy. Pt extubated 03/31. TPN was tapered off 04/06. Diet remains pureed with pudding thick liquids. PO intake continues to be poor. Appetite stimulants added yesterday. Pt confused per notes. PMHx: Renal cell cancer with current chemotherapy, immunosuppression, R. nephrectomy, CAD, COPD, HTN, dyslipidemia, type 2 diabetes, hiatal hernia, GI bleed. DIET: Pureed, pudding thick liquids + magic cup. PO intake bites. LABS: Cr 0.60, Glu 103, Ca 7.5, AST 97, ALT 99, Alk phos 1548, Alb 2.3 MEDICATIONS: Reviewed. Marinol, Olanzapine, Lactulose. GI: Stool via colostomy. SKIN: Tobacco Flavorer following. Abdominal wound w/ wound vac. ANTHROPOMETRICS: No new wts. Wt (04/10): 67.5 kg (? accuracy of wt), BMI: 19.6 kg/m2. Admit wt 88 kg, IBW: 83.64 kg. ESTIMATED NEEDS: Healing, GI Calories: 0508-9869 kcal/day (25-30 kcal/kg BW) Protein: 105-135 kcal/day (1.2-1.5 g/kg BW) Fluid: Approx. 2700 mL (30 mL/kg BW) NUTRITION DIAGNOSIS: 1) Inadequate oral intake related to altered GI function, as evidenced by colectomy/colostomy, stimulation diet refusal - PERSISTS. 2) Chew/swallow difficulty related to AMS/weakness as evidenced by need for stimulation diet per ST - IMPROVING. INTERVENTION: 1) Continue to advance diet per ST. Will continue Magic Cup on all trays to maximize kcal/pro intake. 2) If poor PO intake continues, consider enteral nutrition. Recommend Vital 1.5 initiated at 10 ml/hr and advanced by 10ml q 6 hr to goal rate of 75 ml/hr to provide 2587 kcal and 115 g protein (100% estimated needs). If no IVF, flush 95 ml q 2 hr. MONITOR/EVALUATE: PO intake, diet advance/tolerance, wt, labs, GI/nutrition status. Follow per high nutrition risk guidelines.
--- NOTE | 2017-04-12 12:04 | PCM.PNMED ---
Subjective Date of Service Apr 12, 2017 Subjective GASTROENTEROLOGY PROGRESS NOTE: Attending Physician: Murray Gama MD Resident Physician: Courtney Gibson DO No acute events overnight. Patient significantly more confused at time of assessment today with visual hallucinations. Currently alert to person and somewhat place in that he knows he is in the hospital but uncertain of which one. Patient's mental status has fluctuated throughout this admission. Review of systems limited due to patient condition. He denies abdominal pain and states that he has been eating "just fine", stating that he wants to avoid overeating. He reports low back pain and "hemorrhoid pain" but is unable to provide additional details or describe this further. Exam Vital Signs Vital Sign - Last Date Time Temp Pulse Resp B/P Pulse Ox O2 Delivery O2 Flow Rate FiO2 04/12/17 07:30 36.6 101 148/71 98 Room Air 04/12/17 04:04 34 Intake and Output 04/11/17 04/11/17 04/12/17 Cumulative From/Thru 15:00 23:00 07:00 03/24/17 14:24 - 04/12/17 06:56 Intake Total 0 ml 825 ml 557 ml 43010 ml Output Total 550 ml 405 ml 93015 ml Balance -550 ml 420 ml 557 ml 1213 ml Intake Oral 0 ml 445 ml 0 ml 495 ml IV Total 380 ml 557 ml 88005 ml Tube Feeding 40 ml TPN/PPN 91952 ml Tube Irrigant 120 ml Output Urine Total 500 ml 350 ml 75754 ml Stool Total 50 ml 50 ml 1252 ml Gastric Drainage Total 4260 ml Drainage Total 5 ml 2745 ml Estimated Blood Loss 120 ml # Voids 0 3 3 # Bowel Movements 1 Exam General: Pale, elderly male in no acute distress. Notably confused with visual hallucinations. HEENT: Normocephalic, atraumatic. Anicteric sclera. Mucous membranes dry Lungs: Grossly clear to auscultation with mild crackles anterior lung werner. No wheezing. Cardiovascular: Regular rate/rhythm. No murmurs/rubs/gallops Abdomen: Soft, mild tenderness to palpation diffusely, nondistended. Colostomy bag recently changed and empty, ostomy appears healthy with minimal brown liquid drainage; lower abdomen with wound VAC in place. Hypoactive bowel tones Extremities: Distal pulses weak but intact/equal bilaterally; no cyanosis. Trace edema to ankle bilaterally. Neurological: AOx2, No focal neurologic deficit. Voice is soft, muffled with normal speech IVs and Medications Medications Reviewed: Medications were reviewed in detail Lab and Diagnostics Laboratory Tests Test 04/11/17 16:40 04/11/17 17:20 04/12/17 06:06 Hemoglobin 8.0g/dL (13.8-17.2) 7.4g/dL (13.8-17.2) Hematocrit 25.7% (41.0-50.0) 23.8% (41.0-50.0) Sodium Level 144mEq/L (134-144) 143mEq/L (134-144) Potassium Level 4.0mEq/L (3.5-5.2) 3.7mEq/L (3.5-5.2) Chloride Level 110mEq/L (97-108) 109mEq/L (97-108) Carbon Dioxide Level 22mmol/L (18-29) 20mmol/L (18-29) Blood Urea Nitrogen 14mg/dL (8-27) 13mg/dL (8-27) Creatinine 0.67mg/dL (0.76-1.27) 0.60mg/dL (0.76-1.27) Estimat Glomerular Filtration Rate 125mL/min (>59) 142mL/min (>59) Glucose Level 102mg/dL (60-99) 103mg/dL (60-99) Calcium Level 7.8mg/dL (8.5-10.1) 7.5mg/dL (8.5-10.1) Hold Purple Top Tube Received (Received) Hold Central Top Tube Received (Received) White Blood Count 9.8th/mm3 (3.8-10.1) Red Blood Count 2.41mil/mm3 (4.40-5.80) Mean Corpuscular Volume 98.8fL (81-100) Mean Corpuscular Hemoglobin 30.7pg (27.0-35.0) Mean Corpuscular Hemoglobin Concent 31.1% (32.0-37.0) Red Cell Distribution Width 17.9% (12.3-15.4) Platelet Count 845bil/L (150-400) Total Bilirubin 0.6mg/dL (0.0-1.2) Aspartate Amino Transf (AST/SGOT) 97U/L (0-50) Alanine Aminotransferase (ALT/SGPT) 99U/L (0-44) Alkaline Phosphatase 1548U/L (25-160) Total Protein 4.8g/dL (6.4-8.4) Albumin 2.3g/dL (3.4-5.0) Microbiology 04/07/17 Blood Fungal Culture- Pending 04/04/17 Stool Occult Blood (ÁNGELA) - Positive 03/24/17 MRSA (PCR) - Negative 04/07/17 Urine Culture - No growth Result Diagram: 04/12/17 0606 04/12/17 06 Microbiology Blood culture 2/3 bottles positive for Gram + cocci X-Rays, CTs and MRIs CT ABDOMEN AND PELVIS WITH CONTRAST IMPRESSION: 1. Stable low density fluid collection around the surgical drain when compared with the study dated 03/30/17. No definite rim enhancement to suggest organizing abscess. 2. Decreased pleural effusions and consolidation at the lung bases are with the prior study. Dictated by: Vanessa Torres M.D. on 04/03/2017 at 15:29 04/05/17 - X-RAY CHEST ONE VIEW, PORTABLE IMPRESSION: Persistent left basilar airspace opacity consistent with atelectasis versus aspiration or infection. Approved by: Diane Celeste MD, PhD on 04/05/2017 at 12:25 04/06/17 - X-RAY CHEST ONE VIEW, PORTABLE IMPRESSION: Persistent left basilar airspace opacity consistent with atelectasis versus aspiration or pneumonia. Approved by: Vanessa Torres M.D. on 04/06/2017 at 9:28 . Additional Diagnostics 04/05/17 - NM HIDA SCAN WITH CCK - IMPRESSION: 1. Normal filling of gallbladder. No evidence for acute cholecystitis. 2. Normal contractile response of gallbladder to CCK infusion. Approved by: Ignacia Melgar M.D. on 04/05/2017 at 17:22 US VENOUS LEG DUPLEX BILATERAL- IMPRESSION: No DVT found. Approved by: Jimbo Timmons M.D. on 04/06/2017 at 18:37 04/07/17 - US ABDOMEN, LIMITED - IMPRESSION: 1. Increased hepatic echogenicity noted likely related to fatty infiltration of the liver but other sources of hepatocellular disease cannot be excluded. Recommend clinical correlation. 2. Cholelithiasis with thickened and mildly edematous gallbladder wall which may be related to developing cholecystitis. Correlate clinically. Approved by: Vanessa Torres M.D. on 04/07/2017 at 14:43 04/07/17 - MR ABDOMEN MRCP - IMPRESSION: 1. Cholelithiasis with at least 2 stones in the gallbladder neck. No marked enlargement of the gallbladder or apparent wall thickening. No pericholecystic inflammation. 2. Intrahepatic and extrahepatic bile ducts are normal in caliber. No filling defects are demonstrated. 3. Right kidney is absent. Left kidney appears normal noting exophytic cyst laterally 4. Pathologic fracture L1 . Approved by: Brayden Denise M.D. on 04/07/2017 at 13:32 . Assessment & Plan 71 year old gentleman with a history of CAD with 2 stents, COPD, hyperlipidemia , and right-sided renal cell carcinoma (s/p nephrectomy in October 2016) currently treated outpatient with Pazopanib who presented to the CCU hypotensive and intubated status post sigmoid colectomy with colostomy for perforated diverticulitis. GI consulted for abnormal LFTs. Abnormal LFTs with persistently elevated alkaline phosphatase. -Extrahepatic biliary obstruction ruled out with ultrasound and MRCP. HIDA scan shows normal filling of the gallbladder. Therefore ERCP unlikely to provide additional information at this time. -Clinically without ongoing signs/symptoms of infection. -Elevated LFTs likely multifactorial secondary to cholestasis and recent TPN, which has been discontinued. AST and ALT still elevated but trending down. Alkphos remains significantly elevated -Continue to follow LFTs -PT/INR daily. -If AST/ALT continue to improve and Alkphos remains elevated, may consider liver biopsy to further evaluate isolated elevation of Alkphos. Normocytic Anemia -Hb/Hct trending down slowly and thus unlikely to represent acute bleed. Stools found to be guaiac positive. However, patient without overt bleeding and without obvious source of bleeding identified. -s/p infused with iron sodium gluconate. -H/H trended down, most recently Hb -Continue to monitor H/H, transfuse blood products as needed for Hb < 7.0 Pancreatic Cyst in the Body -8mm cyst noted -Recommend repeat CT with pancreas protocol in 3 months Additional problems managed by primary medicine team: Perforated diverticulitis with intra-abdominal abscess. S/P sigmoid colectomy and descending colostomy -Fevers of unknown origin -Acute Encephalopathy, not present on admission, active -Acute Hypoxic Respiratory Failure due to surgery and COPD, chronic -Coronary artery disease, chronic -Renal cell carcinoma of right kidney, chronic -Diabetes mellitus, type 2, chronic -Hypertension, chronic -Hyperlipidemia, chronic . GI Prophylaxis: Not indicated VTE Mechanical Devices: Intermittant Pneumatic CD Resuscitation Status: CPR: Attempt Resuscitation Courtney Gibson DO Apr 12, 2017 11:18
--- NOTE | 2017-04-12 12:18 | NUR ---
Inpatient Ostomy Nurse Patient seen by CWON for leaking around wafer. Patient has retracted stoma and loose stool has leaked under wafer barrier despite use of Amanda ring and convex wafer CWON RN applied yesterday. Pouch and wafer were removed, peristomal skin was cleansed with warm, wet washcloth, using no cleansing wipes or any other additives. Skin was dried well, then swabbed with skin prep to improve adhesion. Amanda ring was opened to appropriate size, then small, moldable, convex wafer opened to size and applied over Amanda ring. Pouch was attached and clicked onto ring. Pressure was held for one minute to improve adhesion. Staff to alert CWON RN at next leak; otherwise CWON RN will change on Monday to remain on consistent schedule.
--- NOTE | 2017-04-12 15:10 | NUR ---
Social Work: Readiness for Discharge/Multidisciplinary Rounds D: Pt discussed in multidisciplinary rounds; the patient is still not medically stable. Pt's PO intake has been poor and providers are attempting to stimulate the patient's appetite. ST is following and is attempting to advance diet when safe. Pt has been accepted at [facility] with Dr. Parmar to follow. PATIENT RELATIONS SPECIALIST spoke with Kelsea Zendejas she continues to follow. She is aware the patient has a wound vac in place and will order this equipment prior to admission to their facility. Pt is being transferred off [facility] to [facility]. PATIENT RELATIONS SPECIALIST updated [facility] PATIENT RELATIONS SPECIALIST of patient discharge plan. PPW is completed and on the chart. PASSR completed and faxed to [facility]. PATIENT RELATIONS SPECIALIST met with the patients at bedside to confirm discharge plan. She is very excited that [facility] has accepted as this was her first preference. She identifies no concerns about his discharge plan. A: Pt who will require ongoing rehab and penitentiary at discharge. P: Anticipate pt to discharge to [facility] with Dr. Parmar to follow once medically stable; PATIENT RELATIONS SPECIALIST to continue to follow to assess for unmet discharge needs. [facility]
--- NOTE | 2017-04-12 17:38 | NUR ---
Transfer of patient pt transferred to [facility]. Report given to Daniela COTE. Patient instructed on transfer procedure. patient verbalized understanding. Patient transferred to room 1030 via bed with personal belongings.
--- NOTE | 2017-04-12 18:15 | PCM.PNMED ---
Subjective Date of Service Apr 12, 2017 Subjective Subjective: Patient remains pleasantly confused, multiple episodes of hallucinations, no complaints at this time. We discussed the importance of slow rehabilitation daily Events Overnight: No acute events overnight. ROS: Denies fever/chills, nausea/vomiting, headache, weakness, abdominal pain, chest pain, shortness of breath, increased swelling in hands or feet. Exam Vital Signs Vital Sign - Last Date Time Temp Pulse Resp B/P Pulse Ox O2 Delivery O2 Flow Rate FiO2 04/12/17 17:52 36.8 109 20 121/79 96 Room Air Intake and Output 04/11/17 04/11/17 04/12/17 Cumulative From/Thru 15:00 23:00 07:00 03/24/17 14:24 - 04/12/17 06:56 Intake Total 0 ml 825 ml 557 ml 78111 ml Output Total 550 ml 405 ml 04778 ml Balance -550 ml 420 ml 557 ml 1213 ml Intake Oral 0 ml 445 ml 0 ml 495 ml IV Total 380 ml 557 ml 78237 ml Tube Feeding 40 ml TPN/PPN 86479 ml Tube Irrigant 120 ml Output Urine Total 500 ml 350 ml 99065 ml Stool Total 50 ml 50 ml 1252 ml Gastric Drainage Total 4260 ml Drainage Total 5 ml 2745 ml Estimated Blood Loss 120 ml # Voids 0 3 3 # Bowel Movements 1 Exam General: No acute distress, well-developed, malnourished HEENT: Normocephalic, atraumatic. External ears without defect. Pupils equal, round, and reactive to light and accommodation. Anicteric sclerae, moist conjunctivae. Cardiovascular: Regular rate and rhythm with no murmurs, rubs, or gallops appreciated Pulmonary: Patient continues to have Mild rhonchi, no rales, no wheezes. Breathing well on room air. Abdomen: Bowel tones present. Soft, non-distended, non-tender, ostomy putting out brown fluid. Extremities: No clubbing, cyanosis, edema, Pulses intact. Skin: Normal temperature, turgor, and texture; no rash, ulcers, or subcutaneous nodules appreciated. Neurological: Slurred speech with daily improvement. Cranial nerves grossly intact. Patient appears to have normal movement of arms and legs Psychiatric: Patient appears upbeat, normal mood and affect. Patient remains marginally confused, although appears to be improving. Multiple reported hallucinations. IVs and Medications IV Fluids 1500 mL normal saline diluted with IV medications. Medications Reviewed: Medications were reviewed in detail Lab and Diagnostics Result Diagram: 04/12/17 0604/12/17 0606 Microbiology Blood culture 2/3 bottles positive for Gram + cocci X-Rays, CTs and MRIs CT ABDOMEN AND PELVIS WITH CONTRAST IMPRESSION: 1. Stable low density fluid collection around the surgical drain when compared with the study dated 03/30/17. No definite rim enhancement to suggest organizing abscess. 2. Decreased pleural effusions and consolidation at the lung bases are with the prior study. Dictated by: Vanessa Torres M.D. on 04/03/2017 at 15:29 04/05/17 - X-RAY CHEST ONE VIEW, PORTABLE IMPRESSION: Persistent left basilar airspace opacity consistent with atelectasis versus aspiration or infection. Approved by: Diane Celeste MD, PhD on 04/05/2017 at 12:25 04/06/17 - X-RAY CHEST ONE VIEW, PORTABLE IMPRESSION: Persistent left basilar airspace opacity consistent with atelectasis versus aspiration or pneumonia. Approved by: Vanessa Torres M.D. on 04/06/2017 at 9:28 . Additional Diagnostics 04/05/17 - NM HIDA SCAN WITH CCK - IMPRESSION: 1. Normal filling of gallbladder. No evidence for acute cholecystitis. 2. Normal contractile response of gallbladder to CCK infusion. Approved by: Ignacia Melgar M.D. on 04/05/2017 at 17:22 US VENOUS LEG DUPLEX BILATERAL- IMPRESSION: No DVT found. Approved by: Jimbo Timmons M.D. on 04/06/2017 at 18:37 04/07/17 - US ABDOMEN, LIMITED - IMPRESSION: 1. Increased hepatic echogenicity noted likely related to fatty infiltration of the liver but other sources of hepatocellular disease cannot be excluded. Recommend clinical correlation. 2. Cholelithiasis with thickened and mildly edematous gallbladder wall which may be related to developing cholecystitis. Correlate clinically. Approved by: Vanessa Torres M.D. on 04/07/2017 at 14:43 04/07/17 - MR ABDOMEN MRCP - IMPRESSION: 1. Cholelithiasis with at least 2 stones in the gallbladder neck. No marked enlargement of the gallbladder or apparent wall thickening. No pericholecystic inflammation. 2. Intrahepatic and extrahepatic bile ducts are normal in caliber. No filling defects are demonstrated. 3. Right kidney is absent. Left kidney appears normal noting exophytic cyst laterally 4. Pathologic fracture L1 . Approved by: Brayden Denise M.D. on 04/07/2017 at 13:32 . Assessment & Plan 71 year old gentleman with a history of CAD with 2 stents, COPD, hyperlipidemia , and right-sided renal cell carcinoma (s/p nephrectomy in October 2016) currently treated with Pazopanib presenting to the CCU hypotensive and was initially intubated status post sigmoid colectomy with descending colostomy for perforated diverticulitis. Elevated liver function markers including alkaline phosphatase, POA, acute. Active Patient has had high normal Alk Phos since admission - Hepatic enzymes slightly elevated in parallel - Ultrasound of the abdomen shows a prominent gallbladder (4.2 mm) Developing cholecystitis cannot be excluded. - GGT 520 consistent with cholecystitis and/or common bile duct obstruction - HIDA scan obtained on 04/05 shows no evidence of cholecystitis. Results as above - MRCP shows no evidence of cholecystitis or choledocholithiasis Results as above - Patient remains asymptomatic, consider cholecystostomy in the event that pain/ discomfort develops, continue to monitor. Normocytic anemia, present on admission, active - Hemoglobin slowly trending down since admission - On the morning of 04/10 hgb labs showed 6.4, rechecked at 7.8 hours later, possibly lab error, continue to monitor closely - Stools found to be guaiac positive, however no obvious GI loss, and no other sources of bleeding noted - Patient's blood count is trending down very slowly and is unlikely to represent acute bleed. - Consider transfusion if patient remains less than 7.0 on [id number] lab draws. - Patient infused with iron sodium gluconate on 04/08 Protein calorie malnutrition, acute, active -Patient tolerating stim diet as of 04/06, speech therapy to evaluate the patient again and advance diet as appropriate. - Speech therapy following, recommendations appreciated - Olanzapine and dronabinol added to stimulate patient diet Acute Encephalopathy, not present on admission, active - As the patient continues to be more alert and vocal post extubation, Level of encephalopathy tends to wax and wane - Multiple possibilities previously discussed, however no interventions planned at this time. - Continue to monitor Fevers of unknown origin, not present on admission, resolved - Temperatures within normal limits for the last several days. - None noted since 04/07 consistent with possible side effect of micafungin as this was discontinued - Other possibilities discussed previously - ID following, meropenem discontinued Hypertension, chronic. Present on admission. Stable -Patient remains tachycardic with increasing blood pressures - Held Lisinopril 40mg PO daily, consider restarting if blood pressures allowing - Restart Metoprolol succinate 50mg PO daily Perforated diverticulitis with intra-abdominal abscess. S/P sigmoid colectomy and descending colostomy, stable -Ostomy output appropriate -[place] and ARCELIA drain should remain for now, surgery continues to follow -Continue IV meropenem for now -Repeat CT abdomen 04/03 shows resolving pleural effusions, mild abdominal fluid with no evidence of abscess. Acute Hypoxic Respiratory Failure due to surgery and COPD, chronic. Present on admission. Resolved -Pt intubated and sedated in the CCU. Extubated on 03/31 -Patient currently breathing well on room air Coronary artery disease, chronic. Present on admission. stable. -Pt with prior VT and two stents. Presented with mild chest pain with negative cardiac enzymes and no acute ischemic changes noted on ECG. -Continue home simvastatin and aspirin when able -Continuous cardiac monitoring. Renal cell carcinoma of right kidney, chronic. Presumed stable. -Pt is s/p nephrectomy in October 2016, previously treated with Pazopanib and dexamethasone. -Per recommendations of oncology Pazopanib and dexamethasone may be held for 4- 6 weeks while patient stabilizes. -CT abd/pelvis showed a renal cyst as above. -Resume oral medications when able Diabetes mellitus, type 2, chronic. Present on admission. Presumed stable. -Current outpatient therapy is Metformin 500mg PO BID -Hold Metformin -Continue tight glucose control. GI Prophylaxis: Not indicated VTE Mechanical Devices: Intermittant Pneumatic CD Resuscitation Status: CPR: Attempt Resuscitation Attending Statement The patient was seen and examined together with Dr. Suggs on 04/12/2017 and I agree with the history, exam and plan as outlined in the note above. . Mode Suggs DO Apr 12, 2017 18:15 Darrius Mcmahan MD Apr 13, 2017 18:02 Mode Suggs DO Apr 12, 2017 18:15
[2017-04-13] MEDS: Heparin 5,000 Unit/mL Inj SUBQ SCH ×3 (00:11→16:52)
--- NOTE | 2017-04-13 03:40 | NUR ---
Skin/ Mentation Q2 turns being implemented. Pt. tolerates turns well. Heels floated. Pt. is alert and oriented to self, others, and surroundings. Pt. was able to use urinal for voiding needs. [place]wood bed alarm on for safety. Will continue to monitor.
[2017-04-13 04:39] VITALS: BP 115/74; PULSE 110; RESP 16; O2SAT 97
[2017-04-13 05:32] LABS: Mean Corpuscular Hemoglobin 30.5 pg (27.0-35.0); Mean Corpuscular Volume 98.4 fL (81-100)
[2017-04-13] MEDS ORDERED: MeTOProlol XL 50 mg ER24 Tablet PO SCH (08:30)
--- NOTE | 2017-04-13 08:43 | PROG NOTE ---
[address] [address] PROGRESS NOTE PATIENT: JOSAFAT SOLIS : 1945 MR#: [id number] ADMIT: 03/24/2017 JOB ID: [id number] DATE: 04/13/2017 SUBJECTIVE: The patient is seen in followup. There were no acute events overnight. His mental status continues to wax and wane. Overnight he was oriented, this morning seems somewhat confused again. He is not complaining of any abdominal pain. He has no nausea. OBJECTIVE: Temperature 36.6, pulse 110, blood pressure 115/74, saturation 97% on room air. General: He is resting in bed in no acute distress. Abdomen is soft, nondistended. Wound VAC is intact to the lower midline wound with minimal drainage. There is no erythema of the abdominal wall. His colostomy has somewhat more watery brown stool output. LABORATORIES: White blood cell count 10.5, hematocrit 23.9, platelets 830. Creatinine 0.61. Glucose 103. AST 80, ALT 85, alkaline phosphatase 1366. ASSESSMENT AND PLAN: A 71-year-old man with perforated sigmoid diverticulitis with feculent peritonitis status post Diallo's procedure. His cholestatic picture seems to be improving slowly. Oral intake is encouraged. We will continue to monitor liver function tests. If his stool output continues to be profusely watery, would consider checking a C. difficile.
[2017-04-13] MEDS: Lactulose 20 Gm/30 mL 30 mL Syrup PO SCH (08:55)
[2017-04-13 09:00] VITALS: BP 130/73; PULSE 117
--- NOTE | 2017-04-13 10:38 | NUR ---
Spoke with MD regarding concern with nutrition and swallow. Rec: MBSS for visualization of swallow and nutrition consult for recommendations non-oral supplemental nutrition as patient has not been tolerating more than a few bites. MD and RN in agreement.
[2017-04-13 11:58] VITALS: BP 120/78; PULSE 109; RESP 18; O2SAT 96
[2017-04-13 14:49] VITALS: PULSE 111
--- NOTE | 2017-04-13 15:53 | NUR ---
Inpatient Ostomy Nurse Ostomy continues to leak under wafer, most likely due to retracted stoma. Wafer was changed, small moldable opened to maximum size. Instead of Amanda ring, CWON RN used stoma paste, will assess for efficacy at next change. Pouch clicked into place without challenge and a warmed blanket from blanket warmer was placed over ostomy to improve wafer adhesion. CWON will see patient tomorrow.
--- NOTE | 2017-04-13 15:54 | PCM.PNMED ---
Subjective Date of Service Apr 13, 2017 Subjective Pt transfer from [facility]. Still having issues w/ dsyphagia. Not agitated overnight. Exam Vital Signs Vital Sign - Last Date Time Temp Pulse Resp B/P Pulse Ox O2 Delivery O2 Flow Rate FiO2 04/13/17 14:49 111 04/13/17 11:58 36.7 18 120/78 96 Room Air Intake and Output 04/12/17 04/12/17 04/13/17 Cumulative From/Thru 15:00 23:00 07:00 03/24/17 14:24 - 04/13/17 06:39 Intake Total 1000 ml 60 ml 99 ml 56208 ml Output Total 575 ml 323 ml 20559 ml Balance 1000 ml -515 ml -224 ml 1474 ml Intake Oral 60 ml 0 ml 555 ml IV Total 1000 ml 99 ml 37489 ml Tube Feeding 40 ml TPN/PPN 91550 ml Tube Irrigant 120 ml Output Urine Total 325 ml 323 ml 42497 ml Stool Total 1252 ml Gastric Drainage Total 4260 ml Drainage Total 250 ml 2995 ml Estimated Blood Loss 120 ml # Voids 1 4 # Bowel Movements 1 Exam General: No acute distress, well-developed, malnourished HEENT: Normocephalic, atraumatic. External ears without defect. Pupils equal, round, and reactive to light and accommodation. Anicteric sclerae, moist conjunctivae. Cardiovascular: Regular rate and rhythm with no murmurs, rubs, or gallops appreciated Pulmonary: Patient continues to have Mild rhonchi, no rales, no wheezes. Breathing well on room air. Abdomen: Bowel tones present. Soft, non-distended, non-tender, ostomy putting out brown fluid. Extremities: No clubbing, cyanosis, edema, Pulses intact. Skin: Normal temperature, turgor, and texture; no rash, ulcers, or subcutaneous nodules appreciated. Neurological: Slurred speech with daily improvement. Cranial nerves grossly intact. Patient appears to have normal movement of arms and legs Psychiatric: Patient appears upbeat, normal mood and affect. Patient remains marginally confused, although appears to be improving. Multiple reported hallucinations. IVs and Medications Medications Reviewed: Medications were reviewed in detail Lab and Diagnostics Result Diagram: 04/13/17 0500 04/13/17 0500 Microbiology Blood culture 2/3 bottles positive for Gram + cocci X-Rays, CTs and MRIs CT ABDOMEN AND PELVIS WITH CONTRAST IMPRESSION: 1. Stable low density fluid collection around the surgical drain when compared with the study dated 03/30/17. No definite rim enhancement to suggest organizing abscess. 2. Decreased pleural effusions and consolidation at the lung bases are with the prior study. Dictated by: Vanessa Torres M.D. on 04/03/2017 at 15:29 04/05/17 - X-RAY CHEST ONE VIEW, PORTABLE IMPRESSION: Persistent left basilar airspace opacity consistent with atelectasis versus aspiration or infection. Approved by: Diane Celeste MD, PhD on 04/05/2017 at 12:25 04/06/17 - X-RAY CHEST ONE VIEW, PORTABLE IMPRESSION: Persistent left basilar airspace opacity consistent with atelectasis versus aspiration or pneumonia. Approved by: Vanessa Torres M.D. on 04/06/2017 at 9:28 . Additional Diagnostics 04/05/17 - NM HIDA SCAN WITH CCK - IMPRESSION: 1. Normal filling of gallbladder. No evidence for acute cholecystitis. 2. Normal contractile response of gallbladder to CCK infusion. Approved by: Ignacia Melgar M.D. on 04/05/2017 at 17:22 US VENOUS LEG DUPLEX BILATERAL- IMPRESSION: No DVT found. Approved by: Jimbo Timmons M.D. on 04/06/2017 at 18:37 04/07/17 - US ABDOMEN, LIMITED - IMPRESSION: 1. Increased hepatic echogenicity noted likely related to fatty infiltration of the liver but other sources of hepatocellular disease cannot be excluded. Recommend clinical correlation. 2. Cholelithiasis with thickened and mildly edematous gallbladder wall which may be related to developing cholecystitis. Correlate clinically. Approved by: Vanessa Torres M.D. on 04/07/2017 at 14:43 04/07/17 - MR ABDOMEN MRCP - IMPRESSION: 1. Cholelithiasis with at least 2 stones in the gallbladder neck. No marked enlargement of the gallbladder or apparent wall thickening. No pericholecystic inflammation. 2. Intrahepatic and extrahepatic bile ducts are normal in caliber. No filling defects are demonstrated. 3. Right kidney is absent. Left kidney appears normal noting exophytic cyst laterally 4. Pathologic fracture L1 . Approved by: Brayden Denise M.D. on 04/07/2017 at 13:32 . Assessment & Plan 71 year old gentleman with a history of CAD with 2 stents, COPD, hyperlipidemia , and right-sided renal cell carcinoma (s/p nephrectomy in October 2016) currently treated with Pazopanib presenting to the CCU hypotensive and was initially intubated status post sigmoid colectomy with descending colostomy for perforated diverticulitis. Elevated liver function markers including alkaline phosphatase, POA, acute. Active Patient has had high normal Alk Phos since admission - Hepatic enzymes slightly elevated in parallel - Ultrasound of the abdomen shows a prominent gallbladder (4.2 mm) Developing cholecystitis cannot be excluded. - GGT 520 consistent with cholecystitis and/or common bile duct obstruction - HIDA scan obtained on 04/05 shows no evidence of cholecystitis. Results as above - MRCP shows no evidence of cholecystitis or choledocholithiasis Results as above - Patient remains asymptomatic, consider cholecystostomy in the event that pain/ discomfort develops, continue to monitor. - Surgery, Dr. Sagastume following. Normocytic anemia, present on admission, active - Hemoglobin slowly trending down since admission - On the morning of 04/10 hgb labs showed 6.4, rechecked at 7.8 hours later, possibly lab error, continue to monitor closely - Stools found to be guaiac positive, however no obvious GI loss, and no other sources of bleeding noted - Patient's blood count is trending down very slowly and is unlikely to represent acute bleed. - Consider transfusion if patient remains less than 7.0 on [id number] lab draws. - Patient infused with iron sodium gluconate on 04/08 Protein calorie malnutrition, acute, active -Patient tolerating stim diet as of 04/06, speech therapy to evaluate the patient again and advance diet as appropriate. - Olanzapine and dronabinol added to stimulate patient diet - [employer] rec MBS to be done 04/14. Acute Encephalopathy, not present on admission, active - As the patient continues to be more alert and vocal post extubation, Level of encephalopathy tends to wax and wane - Multiple possibilities previously discussed, however no interventions planned at this time. - Continue to monitor Fevers of unknown origin, not present on admission, resolved - Temperatures within normal limits for the last several days. - None noted since 04/07 consistent with possible side effect of micafungin as this was discontinued - Other possibilities discussed previously - ID following, meropenem discontinued Hypertension, chronic. Present on admission. Stable -Patient remains tachycardic with increasing blood pressures - Held Lisinopril 40mg PO daily, consider restarting if blood pressures allowing - Restart Metoprolol succinate 50mg PO daily Perforated diverticulitis with intra-abdominal abscess. S/P sigmoid colectomy and descending colostomy, stable -Ostomy output appropriate -[place] and ARCELIA drain should remain for now, surgery continues to follow -Continue IV meropenem for now -Repeat CT abdomen 04/03 shows resolving pleural effusions, mild abdominal fluid with no evidence of abscess. Acute Hypoxic Respiratory Failure due to surgery and COPD, chronic. Present on admission. Resolved -Pt intubated and sedated in the CCU. Extubated on 03/31 -Patient currently breathing well on room air Coronary artery disease, chronic. Present on admission. stable. -Pt with prior MD and two stents. Presented with mild chest pain with negative cardiac enzymes and no acute ischemic changes noted on ECG. -Continue home simvastatin and aspirin when able -Continuous cardiac monitoring. Renal cell carcinoma of right kidney, chronic. Presumed stable. -Pt is s/p nephrectomy in October 2016, previously treated with Pazopanib and dexamethasone. -Per recommendations of oncology Pazopanib and dexamethasone may be held for 4- 6 weeks while patient stabilizes. -CT abd/pelvis showed a renal cyst as above. -Resumed oral medications. Diabetes mellitus, type 2, chronic. Present on admission. Presumed stable. -Current outpatient therapy is Metformin 500mg PO BID -Hold Metformin -Continue tight glucose control. GI Prophylaxis: Not indicated VTE Mechanical Devices: Intermittant Pneumatic CD Resuscitation Status: CPR: Attempt Resuscitation Walker Barnhart MD Apr 13, 2017 15:54
[2017-04-13 16:01] VITALS: PULSE 113
--- NOTE | 2017-04-13 16:15 | NUR ---
CR acknowledged by pt's over the phone. No questions related to CR. Zohra Riley MSW
--- NOTE | 2017-04-13 16:42 | NUR ---
GI Pt has had liquid stool output in his colostomy today. Administered Lactulose this a.m., and pt has received this medication for the past 5 days. Okay per hospitalist to hold Lactulose if pt has 2 or more loose stools/day. Pt also had slight leak around stoma. Called wound care nurse, Clau Hernandez. She replaced pt's colostomy wafer and bag and added stomahesive paste around the stoma. Colostomy wafer now intact and symptomatic.
--- NOTE | 2017-04-13 18:53 | PCM.PNMED ---
Subjective Date of Service Apr 13, 2017 Subjective GASTROENTEROLOGY PROGRESS NOTE: Attending Physician: Murray Gama MD Resident Physician: Courtney Gibson DO Patient is resting comfortably this afternoon and other than the terrible food without complaint. He denies nausea, vomiting, or abdominal pain and states that he is not eating much because he does not like the food. He appears much less confused and his mental status has fluctuated throughout this admission. Per nursing, patient continues to have liquid stool output in his colostomy. Exam Vital Signs Vital Sign - Last Date Time Temp Pulse Resp B/P Pulse Ox O2 Delivery O2 Flow Rate FiO2 04/13/17 16:01 113 04/13/17 11:58 36.7 18 120/78 96 Room Air Intake and Output 04/12/17 04/12/17 04/13/17 Cumulative From/Thru 15:00 23:00 07:00 03/24/17 14:24 - 04/13/17 06:39 Intake Total 1000 ml 60 ml 99 ml 92455 ml Output Total 575 ml 323 ml 89098 ml Balance 1000 ml -515 ml -224 ml 1474 ml Intake Oral 60 ml 0 ml 555 ml IV Total 1000 ml 99 ml 01598 ml Tube Feeding 40 ml TPN/PPN 00201 ml Tube Irrigant 120 ml Output Urine Total 325 ml 323 ml 56341 ml Stool Total 1252 ml Gastric Drainage Total 4260 ml Drainage Total 250 ml 2995 ml Estimated Blood Loss 120 ml # Voids 1 4 # Bowel Movements 1 Exam General: Elderly male in no acute distress. Communicating appropriately. HEENT: Normocephalic, atraumatic. Anicteric sclera. Mucous membranes dry Lungs: Grossly clear to auscultation with mild crackles anterior lung werner. No wheezing. Cardiovascular: Regular rate/rhythm. No murmurs/rubs/gallops Abdomen: Soft, mild tenderness to palpation diffusely, nondistended. Colostomy bag recently changed and empty, ostomy appears healthy with minimal brown liquid drainage; lower abdomen with wound VAC in place. Hypoactive bowel tones Extremities: Distal pulses weak but intact/equal bilaterally; no cyanosis. Trace edema to ankle bilaterally. Neurological: AOx2, No focal neurologic deficit. Voice is soft, muffled with normal speech IVs and Medications Medications Reviewed: Medications were reviewed in detail Lab and Diagnostics Laboratory Tests Test 04/13/17 05:00 White Blood Count 10.5th/mm3 (3.8-10.1) Red Blood Count 2.43mil/mm3 (4.40-5.80) Hemoglobin 7.4g/dL (13.8-17.2) Hematocrit 23.9% (41.0-50.0) Mean Corpuscular Volume 98.4fL (81-100) Mean Corpuscular Hemoglobin 30.5pg (27.0-35.0) Mean Corpuscular Hemoglobin Concent 31.0% (32.0-37.0) Red Cell Distribution Width 18.0% (12.3-15.4) Platelet Count 830bil/L (150-400) Sodium Level 140mEq/L (134-144) Potassium Level 3.4mEq/L (3.5-5.2) Chloride Level 107mEq/L (97-108) Carbon Dioxide Level 20mmol/L (18-29) Blood Urea Nitrogen 11mg/dL (8-27) Creatinine 0.61mg/dL (0.76-1.27) Estimat Glomerular Filtration Rate 139mL/min (>59) Glucose Level 103mg/dL (60-99) Calcium Level 7.6mg/dL (8.5-10.1) Total Bilirubin 0.6mg/dL (0.0-1.2) Aspartate Amino Transf (AST/SGOT) 80U/L (0-50) Alanine Aminotransferase (ALT/SGPT) 85U/L (0-44) Alkaline Phosphatase 1366U/L (25-160) Total Protein 4.7g/dL (6.4-8.4) Albumin 2.3g/dL (3.4-5.0) Result Diagram: 04/13/17 0500 04/13/17 0500 Microbiology 04/07/17 Blood Fungal Culture- Pending 04/04/17 Stool Occult Blood ([place]) - Positive 03/24/17 MRSA (PCR) - Negative 04/07/17 Urine Culture - No growth X-Rays, CTs and MRIs CT ABDOMEN AND PELVIS WITH CONTRAST IMPRESSION: 1. Stable low density fluid collection around the surgical drain when compared with the study dated 03/30/17. No definite rim enhancement to suggest organizing abscess. 2. Decreased pleural effusions and consolidation at the lung bases are with the prior study. Dictated by: Vanessa Torres M.D. on 04/03/2017 at 15:29 04/05/17 - X-RAY CHEST ONE VIEW, PORTABLE IMPRESSION: Persistent left basilar airspace opacity consistent with atelectasis versus aspiration or infection. Approved by: Diane Celeste MD, PhD on 04/05/2017 at 12:25 04/06/17 - X-RAY CHEST ONE VIEW, PORTABLE IMPRESSION: Persistent left basilar airspace opacity consistent with atelectasis versus aspiration or pneumonia. Approved by: Vanessa Torres M.D. on 04/06/2017 at 9:28 . Additional Diagnostics 04/05/17 - NM HIDA SCAN WITH CCK - IMPRESSION: 1. Normal filling of gallbladder. No evidence for acute cholecystitis. 2. Normal contractile response of gallbladder to CCK infusion. Approved by: Ignacia Melgar M.D. on 04/05/2017 at 17:22 US VENOUS LEG DUPLEX BILATERAL- IMPRESSION: No DVT found. Approved by: Jimbo Timmons M.D. on 04/06/2017 at 18:37 04/07/17 - US ABDOMEN, LIMITED - IMPRESSION: 1. Increased hepatic echogenicity noted likely related to fatty infiltration of the liver but other sources of hepatocellular disease cannot be excluded. Recommend clinical correlation. 2. Cholelithiasis with thickened and mildly edematous gallbladder wall which may be related to developing cholecystitis. Correlate clinically. Approved by: Vanessa Torres M.D. on 04/07/2017 at 14:43 04/07/17 - MR ABDOMEN MRCP - IMPRESSION: 1. Cholelithiasis with at least 2 stones in the gallbladder neck. No marked enlargement of the gallbladder or apparent wall thickening. No pericholecystic inflammation. 2. Intrahepatic and extrahepatic bile ducts are normal in caliber. No filling defects are demonstrated. 3. Right kidney is absent. Left kidney appears normal noting exophytic cyst laterally 4. Pathologic fracture L1 . Approved by: Brayden Denise M.D. on 04/07/2017 at 13:32 . Assessment & Plan 71 year old gentleman with a history of CAD with 2 stents, COPD, hyperlipidemia , and right-sided renal cell carcinoma (s/p nephrectomy in October 2016) currently treated outpatient with Pazopanib who presented to the CCU hypotensive and intubated status post sigmoid colectomy with colostomy for perforated diverticulitis. GI consulted for abnormal LFTs. Abnormal LFTs with persistently elevated alkaline phosphatase. -Extrahepatic biliary obstruction ruled out with ultrasound and MRCP. HIDA scan shows normal filling of the gallbladder. Therefore ERCP unlikely to provide additional information at this time. -Clinically without ongoing signs/symptoms of infection. -Elevated LFTs likely multifactorial secondary to cholestasis and recent TPN, which has been discontinued. -AST and ALT still elevated but continue to improve. Alkphos remains significantly elevated -If AST/ALT continue to improve and Alkphos remains elevated, may consider liver biopsy to further evaluate isolated elevation of Alkphos. -Liquid stool output via ostomy, along with mild bump in WBC (10.5 up from 9.8 yesterday) -Recommend testing for C.diff Normocytic Anemia -Hb/Hct stable. No overt signs of bleeding -Continue to monitor H/H, transfuse blood products as needed for Hb < 7.0 Pancreatic Cyst in the Body -8mm cyst noted -Recommend repeat CT with pancreas protocol in 3 months Additional problems managed by primary medicine team: -Perforated diverticulitis with intra-abdominal abscess. S/P sigmoid colectomy and descending colostomy -Fevers of unknown origin -Acute Encephalopathy, not present on admission, active -Acute Hypoxic Respiratory Failure due to surgery and COPD, chronic -Coronary artery disease, chronic -Renal cell carcinoma of right kidney, chronic -Diabetes mellitus, type 2, chronic -Hypertension, chronic -Hyperlipidemia, chronic . GI Prophylaxis: Not indicated VTE Mechanical Devices: Intermittant Pneumatic CD Resuscitation Status: CPR: Attempt Resuscitation Attending Statement Pt seen and examined no new complaints, denies abdominal pain, nausea or vomiting agree with resident physician note above LFT's slowly improving, continue to follow follow up on chronic liver disease work up I believe this elevation of LFT's is multifactorial Courtney Gibson DO Apr 13, 2017 18:53 Murray Gama MD Apr 15, 2017 18:05
[2017-04-13 20:00] VITALS: BP 120/75; PULSE 111; RESP 16; O2SAT 95
[2017-04-14] MEDS: Heparin 5,000 Unit/mL Inj SUBQ SCH ×3 (00:52→16:55)
[2017-04-14 04:23] VITALS: BP 118/70; PULSE 114; RESP 18; O2SAT 96
[2017-04-14 05:41] LABS: BASOPHILS % (AUTO) 0.9 % (0-3); EOSINOPHILS % (AUTO) 4.2 % (0-5); MONOCYTES % (AUTO) 9.9 % (4-12); Mean Corpuscular Hemoglobin 30.8 pg (27.0-35.0); Mean Corpuscular Volume 99.2 fL (81-100); NEUTROPHILS % (AUTO) 69.1 % (40-74); Platelet Count 712 bil/L (150-400)
[2017-04-14 08:11] VITALS: BP 112/69; PULSE 105; RESP 17; O2SAT 96
[2017-04-14] MEDS: Lactulose 20 Gm/30 mL 30 mL Syrup PO SCH (08:30)
--- NOTE | 2017-04-14 08:46 | PCM.PNMED ---
Subjective Date of Service Apr 14, 2017 Subjective GASTROENTEROLOGY PROGRESS NOTE: Attending Physician: Murray Gama MD Resident Physician: Courtney Gibson DO No acute events overnight. Patient with ongoing fluctuations in mental status. Other than the food, he is without complaint. He has been ambulating some with physical therapy. Alkphos still markedly elevated but trending down. AST/ALT nearly wnl. Exam Vital Signs Vital Sign - Last Date Time Temp Pulse Resp B/P Pulse Ox O2 Delivery O2 Flow Rate FiO2 04/14/17 08:11 36.4 105 17 112/69 96 Room Air Intake and Output 04/13/17 04/13/17 04/14/17 Cumulative From/Thru 15:00 23:00 07:00 03/24/17 14:24 - 04/14/17 06:18 Intake Total 566 ml 232 ml 89051 ml Output Total 700 ml 250 ml 99437 ml Balance -134 ml -18 ml 1322 ml Intake Oral 440 ml 100 ml 1095 ml IV Total 126 ml 132 ml 88974 ml Tube Feeding 40 ml TPN/PPN 20897 ml Tube Irrigant 120 ml Output Urine Total 400 ml 150 ml 89600 ml Stool Total 1252 ml Gastric Drainage Total 4260 ml Drainage Total 300 ml 100 ml 3395 ml Estimated Blood Loss 120 ml # Voids 4 # Bowel Movements 1 Exam General: Elderly male in no acute distress. Communicating appropriately. HEENT: Normocephalic, atraumatic. Anicteric sclera. Mucous membranes dry Lungs: Grossly clear to auscultation with mild crackles anterior lung werner. No wheezing. Cardiovascular: Regular rate/rhythm. No murmurs/rubs/gallops Abdomen: Soft, mild tenderness to palpation diffusely, nondistended. Colostomy bag recently changed and empty, ostomy appears healthy with minimal brown liquid drainage; lower abdomen with wound VAC in place. Hypoactive bowel tones Extremities: Distal pulses weak but intact/equal bilaterally; no cyanosis. Trace edema to ankle bilaterally. Neurological: AOx2, No focal neurologic deficit. Voice is soft, muffled with normal speech IVs and Medications Medications Reviewed: Medications were reviewed in detail Lab and Diagnostics Laboratory Tests Test 04/14/17 05:05 White Blood Count 10.7th/mm3 (3.8-10.1) Red Blood Count 2.37mil/mm3 (4.40-5.80) Hemoglobin 7.3g/dL (13.8-17.2) Hematocrit 23.5% (41.0-50.0) Mean Corpuscular Volume 99.2fL (81-100) Mean Corpuscular Hemoglobin 30.8pg (27.0-35.0) Mean Corpuscular Hemoglobin Concent 31.1% (32.0-37.0) Red Cell Distribution Width 17.8% (12.3-15.4) Platelet Count 712bil/L (150-400) Neutrophils (%) (Auto) 69.1% (40-74) Lymphocytes (%) (Auto) 14.1% (14-46) Monocytes (%) (Auto) 9.9% (4-12) Eosinophils (%) (Auto) 4.2% (0-5) Basophils (%) (Auto) 0.9% (0-3) Sodium Level 142mEq/L (134-144) Potassium Level 3.4mEq/L (3.5-5.2) Chloride Level 109mEq/L (97-108) Carbon Dioxide Level 21mmol/L (18-29) Blood Urea Nitrogen 11mg/dL (8-27) Creatinine 0.65mg/dL (0.76-1.27) Estimat Glomerular Filtration Rate 129mL/min (>59) Glucose Level 108mg/dL (60-99) Calcium Level 7.7mg/dL (8.5-10.1) Total Bilirubin 0.7mg/dL (0.0-1.2) Aspartate Amino Transf (AST/SGOT) 61U/L (0-50) Alanine Aminotransferase (ALT/SGPT) 69U/L (0-44) Alkaline Phosphatase 1157U/L (25-160) Total Protein 4.8g/dL (6.4-8.4) Albumin 2.3g/dL (3.4-5.0) Result Diagram: 04/14/17 0505 04/14/17 0505 Microbiology 04/07/17 Blood Fungal Culture- Pending 04/04/17 Stool Occult Blood ([place]NGEL[place]) - Positive 03/24/17 MRSA (PCR) - Negative 04/07/17 Urine Culture - No growth X-Rays, CTs and MRIs CT ABDOMEN AND PELVIS WITH CONTRAST IMPRESSION: 1. Stable low density fluid collection around the surgical drain when compared with the study dated 03/30/17. No definite rim enhancement to suggest organizing abscess. 2. Decreased pleural effusions and consolidation at the lung bases are with the prior study. Dictated by: Vanessa Torres M.D. on 04/03/2017 at 15:29 04/05/17 - X-RAY CHEST ONE VIEW, PORTABLE IMPRESSION: Persistent left basilar airspace opacity consistent with atelectasis versus aspiration or infection. Approved by: Diane Celeste MD, PhD on 04/05/2017 at 12:25 04/06/17 - X-RAY CHEST ONE VIEW, PORTABLE IMPRESSION: Persistent left basilar airspace opacity consistent with atelectasis versus aspiration or pneumonia. Approved by: Vanessa Torres M.D. on 04/06/2017 at 9:28 . Additional Diagnostics 04/05/17 - NM HIDA SCAN WITH CCK - IMPRESSION: 1. Normal filling of gallbladder. No evidence for acute cholecystitis. 2. Normal contractile response of gallbladder to CCK infusion. Approved by: Ignacia Melgar M.D. on 04/05/2017 at 17:22 US VENOUS LEG DUPLEX BILATERAL- IMPRESSION: No DVT found. Approved by: Jimbo Timmons M.D. on 04/06/2017 at 18:37 04/07/17 - US ABDOMEN, LIMITED - IMPRESSION: 1. Increased hepatic echogenicity noted likely related to fatty infiltration of the liver but other sources of hepatocellular disease cannot be excluded. Recommend clinical correlation. 2. Cholelithiasis with thickened and mildly edematous gallbladder wall which may be related to developing cholecystitis. Correlate clinically. Approved by: Vanessa Torres M.D. on 04/07/2017 at 14:43 04/07/17 - MR ABDOMEN MRCP - IMPRESSION: 1. Cholelithiasis with at least 2 stones in the gallbladder neck. No marked enlargement of the gallbladder or apparent wall thickening. No pericholecystic inflammation. 2. Intrahepatic and extrahepatic bile ducts are normal in caliber. No filling defects are demonstrated. 3. Right kidney is absent. Left kidney appears normal noting exophytic cyst laterally 4. Pathologic fracture L1 . Approved by: Brayden Denise M.D. on 04/07/2017 at 13:32 . Assessment & Plan 71 year old gentleman with a history of CAD with 2 stents, COPD, hyperlipidemia , and right-sided renal cell carcinoma (s/p nephrectomy in October 2016) currently treated outpatient with Pazopanib who presented to the CCU hypotensive and intubated status post sigmoid colectomy with colostomy for perforated diverticulitis. GI consulted for abnormal LFTs. Abnormal LFTs with persistently elevated alkaline phosphatase. -Extrahepatic biliary obstruction ruled out with ultrasound and MRCP. HIDA scan shows normal filling of the gallbladder. Therefore ERCP unlikely to provide additional information at this time. -Clinically without ongoing signs/symptoms of infection. -Elevated LFTs likely multifactorial secondary to cholestasis and recent TPN, which has been discontinued. -Alkphos remains significantly elevated but trending down. AST/ALT near normal limit -If AST/ALT continue to improve and Alkphos remains elevated, may consider liver biopsy to further evaluate isolated elevation of Alkphos. -Liquid stool output via ostomy, along with mild bump in WBC -Recommend testing for C.diff Normocytic Anemia -Hb/Hct stable. No overt signs of bleeding -Continue to monitor H/H, transfuse blood products as needed for Hb < 7.0 Pancreatic Cyst in the Body -8mm cyst noted -Recommend repeat CT with pancreas protocol in 3 months Additional problems managed by primary medicine team: -Perforated diverticulitis with intra-abdominal abscess. S/P sigmoid colectomy and descending colostomy -Fevers of unknown origin -Acute Encephalopathy, not present on admission, active -Acute Hypoxic Respiratory Failure due to surgery and COPD, chronic -Coronary artery disease, chronic -Renal cell carcinoma of right kidney, chronic -Diabetes mellitus, type 2, chronic -Hypertension, chronic -Hyperlipidemia, chronic . Pain Evaluation: Adequate Pain Control GI Prophylaxis: Not indicated VTE Mechanical Devices: Intermittant Pneumatic CD Resuscitation Status: CPR: Attempt Resuscitation Attending Statement Pt seen and examined agree with resident physician note above LFT's improving, etiology likely multifactorial, continue to follow await chronic liver disease labs that were sent no complainys of abdominal pain, nausea or vomiting Dr Lebron Prajapati is covering the GI service this weekend On Monday Dr Radhames Hall is covering the service please contact them with any questions or concerns you may have. i will return on Monday. Courtney Gibson DO Apr 14, 2017 08:46 Murray Gama MD Apr 15, 2017 18:07
[2017-04-14] MEDS: MeTOProlol XL 50 mg ER24 Tablet PO SCH (10:05)
--- NOTE | 2017-04-14 10:20 | NUR ---
Pt off unit 1020 hrs: Pt moved via sling from bed to pink x-ray chair and transported to radiology for barium swallow with video.
--- NOTE | 2017-04-14 10:51 | NUR ---
Evaluation completed. Please go to "Notes" then click on "Assessments and Notes" (bottom left corner of screen). Then select appropriate discipline tab on top of screen.
--- NOTE | 2017-04-14 11:27 | PCM.PNSURG ---
Subjective Date of Service: Apr 14, 2017 Date of Service: Apr 14, 2017 Visit Information: Reason for Visit Perferated Diverticulitis Surgery/Surgery Date Post-Op Day # 21Status post exploratory laparotomy, sigmoid colectomy, descending colostomy (Diallo procedure) Date of Admission: Mar 24, 2017 at 17:07 Hospital Day # Subjective: Patient is still confused though documentation notes improvement. Reports aversion to dysphagia diet. Mobilizing w/ PT & FWW. Wound care notified the surgical team of two new clean pockets in the midline surgical incision with possible fascial involvement. Gastrointestinal: No N/V Pain Management: No or Minimal Pain Neurological: Confusion Postop Activity: Ambulates with Assist Device Objective Vital Sign- Last 8 Hours Date Time Temp Pulse Resp B/P Pulse Ox O2 Delivery O2 Flow Rate FiO2 04/14/17 08:11 36.4 105 17 112/69 96 Room Air 04/14/17 04:23 36.6 114 18 118/70 96 Room Air Intake and Output- Last 8 Hour 04/14/17 Cumulative From/Thru 07:00 03/24/17 14:24 - 04/14/17 06:18 Intake Total 232 ml 56077 ml Output Total 250 ml 80307 ml Balance -18 ml 1322 ml Intake Oral 100 ml 1095 ml IV Total 132 ml 89094 ml Tube Feeding 40 ml TPN/PPN 14197 ml Tube Irrigant 120 ml Output Urine Total 150 ml 90007 ml Stool Total 1252 ml Gastric Drainage Total 4260 ml Drainage Total 100 ml 3395 ml Estimated Blood Loss 120 ml # Voids 4 # Bowel Movements 1 General: Alert, Cooperative, No Acute Distress Lungs: Clear to Auscultation Heart: Other (Tachycardic) Abdomen: Soft, Non-distended, Ostomy (profuse liquid output improved with no output this last shift) SURGICAL WOUND : Wound General Appearence: Wound Vac (Observed midline incision with parachute crown sewer & Dr. Linder after the wound was taken down showing 3cm deep pink, clean , dry, granulation tissue, w/o exudates, purulence, surrounding erythema or induration but x 2 clean pockets #1 (distal inferior 2 cm deep x 4 mm wide w/ possible facial involvement) & #2 (medial 1.5 cm deep x 4 mm wide w/ fascial suture appreciated above the bottom of the pocket). Dr. Linder could not manually palpate the pockets but gave wound care orders for replacing the wound vac.) Extremities: Thigh&Calf Soft/Nontender Neuro: Normal Speech Result Diagram: 04/14/17 0505 04/14/17 0505 Assessment & Plan Impression Primary diagnoses: 1. Perforated diverticulitis with feculent peritonitis. 2. Status post exploratory laparotomy, sigmoid colectomy, descending colostomy ( Diallo procedure) with wound vac: POD # 21 stable from general surgery standpoint with improved cholestasis. Other Medical & Surgical History: 1. Coronary artery disease, status post myocardial infarction (2 stents, 2011) 2. Renal cell carcinoma of the right kidney, chronic/stable. Right nephrectomy 2014 3. Diabetes mellitus type II 4. Hypertension 5. Hyperlipidemia 6. COPD 7. History of hiatal hernia with associated dyspepsia 8. Former cigarette smoker Problems: Plan GENERAL SURGERY RECOMMENDATIONS: 1. Continue wound (plus white VAC packing in new pockets) & ostomy care per protocol. 2. Ambulate regularly with PT 3. Appreciate ongoing GI evaluation for cholestasis 4. Defer to hospitalist team for medical care. 5. General Surgery will continue to follow peripherally VTE Prophylaxis: Sub-Q Heparin (Unfractionated), SCDs Resuscitation Status: CPR: Attempt Resuscitation Jimbo Loyd PA-C Apr 14, 2017 11:27
[2017-04-14 14:56] VITALS: BP 107/65; PULSE 106; RESP 18; O2SAT 94
--- NOTE | 2017-04-14 15:08 | NUR ---
Inpatient Wound and Ostomy Nurse Patient seen for NPWT change and ostomy system change. Wafer that was applied yesterday with paste after multiple consecutive days of leaking has held up well with no leaks and appears intact today. It will be changed today because wafer placement interferes with NPWT dressing change. Stoma remains below skin level, mostly beefy red, firm tissue observed. Peristomal skin is red but no extra warmth or skin breakdown. Small convex wafer was opened to max size, barrier trimmed off-center to allow for placement with NPWT drape accomodation. Stomal paste was used and then pouch attached without challenge. Midline incision measures 6.5 cm L x 3 cm W x 3 cm D at center. Two pockets are noted: one in proximal third of incision and one at distal. Total depth of proximal pocket is 4 cm, sutures are visualized and resistance is met with Q tip. Distal pocket total depth is 5.5 cm and resistance is met with Q tip. Wound bed beefy red and granulating but dry. Edges well-adhered. Periwound pink and warm. Wound was cleansed with NS. Drape was placed as usual; Per Dr. Linder's instructions, each pocket was filled with 3 cm long white foam plug. Black foam was placed over this and remainder of wound was draped as usual. Black foam biscuit placed atop interior black foam to accomodate width of Trac pad. Total pieces of foam used: 2 white, 2 black. Suction achieved, 125 low continuous, after reinforcement of distal edge of drape, which is at panniculus. CWON will plan to change NPWT on Monday.
--- NOTE | 2017-04-14 15:41 | NUR ---
NUTRITION FOLLOW UP: ASSESS: 71 YO M admitted with perforated diverticulitis, pneumoperitoneum with peritonitis, s/p exploratory laparotomy with sigmoid/descending colon resection, Diallo's and end-descending colostomy. Pt extubated 03/31. TPN was tapered off 04/06. Pt is s/p MBS today with diet being advanced from stimulation to pureed, nectar thick. Pt has had poor po intake now x 8 days. Appetite stimulant added 04/09. Pt remains confused per notes. PMHx: Renal cell cancer with current chemotherapy, immunosuppression, R. nephrectomy, CAD, COPD, HTN, dyslipidemia, type 2 diabetes, hiatal hernia, GI bleed. DIET: Pureed, nectar thick liquids + magic cup. PO intake bites. LABS: Reviewed. K+ 3.4, Glu 108, Ca 7.7, Alb 2.3, AST 61, ALT 69, Alk phos 1157. MEDICATIONS: Reviewed. Marinol, Lactulose. GI: Stool via colostomy. SKIN: Label Folder following. Abdominal wound w/ wound vac. ANTHROPOMETRICS: 88.2 kg. Admit wt 88 kg, IBW: 83.64 kg. ESTIMATED NEEDS: Healing, GI Calories: 1919-5048 kcal/day (25-30 kcal/kg BW) Protein: 105-135 kcal/day (1.2-1.5 g/kg BW) Fluid: Approx. 2700 mL (30 mL/kg BW) NUTRITION DIAGNOSIS: 1) Inadequate oral intake related to altered GI function, as evidenced by colectomy/colostomy, stim diet and po intake of bites x 8 days - PERSISTS. 2) Chew/swallow difficulty related to AMS/weakness as evidenced by need for stimulation diet per ST - IMPROVING, diet advance to pureed. INTERVENTION: 1) Continue to advance diet per ST. 2.) Continue to send Magic Cup on all trays to maximize kcal/pro intake. 3.) Will add Health shake on all trays. 4.) Strongly recommend nutrition support as pt has been without adequate nutrition now x 8 days. Recommend Vital 1.5 initiated at 10 ml/hr and advanced by 10ml every 6 hr to goal rate of 75 ml/hr to provide 2587 kcal and 115 g protein (100% estimated needs). If no IVF, flush 95 ml q 2 hr. MONITOR/EVALUATE: PO intake, diet advance/tolerance, weight, labs, GI/nutrition status. Follow per high nutrition risk guidelines.
--- NOTE | 2017-04-14 17:04 | NUR ---
Social Work: Readiness for Discharge/Multidisciplinary Rounds D: EMR reviewed. Pt is on day 21 of hospitalization. Pt discussed in multidisciplinary rounds and is not medically stable for discharge at this time, anticipate 1-2 more days per MD. SW discussed PT recommendation for BLS transport. SW discussed this in multidisciplinary rounds. MD placed order for BLS transport. MD and PT agreeable that if pt does not need BLS transport due to progression with PT during hospital stay, SW will review PT recommendations prior to discharge to determine appropriate need for transport. SW confirmed with [facility] that [facility] can accept [place] with 1:1 feeding/assist (as recommended by ST). SW to continue to follow for any needs or additional MD orders that arise. A: Pt for whom a SNF via BLS is medically necessary. Pt who will need 1:1 feeding/assist at [facility]. SW to review PT recommendations prior to discharge to determine if pt progression during hospital stay meets goals for wheelchair van transport versus BLS. P: Pt anticipated discharge to [facility] with Dr. Parmar to follow. Per [facility], [facility] will accept pt with 1:1 for feeding/assist. SW to review PT recommendations prior to discharge to determine if pt progression during hospital stay meets goals for wheelchair van transport versus BLS. [facility]
--- NOTE | 2017-04-14 17:12 | DRSVH ---
PROCEDURE: X-RAY BARIUM SWALLOW WITH FOOD & VIDEOGRAPHY ([id number]) INDICATIONS: Dysphagia TECHNIQUE: Examination was conducted in conjunction with speech pathology per standard protocol. In the lateral projection, filming was performed of the patient swallowing. AP projection filming may also be performed with patient swallowing. COMPARISON: None. FINDINGS: Function: The oral preparatory phase appears normal, with proper containment. The subsequent oral pr opulsive phase, pharyngeal phase, and esophageal phase of swallowing also appear normal with all prof fered substances. No laryngotracheal penetration or aspiration. Mild vallecular pooling. The attend ing physician was personally present in the room during the examination. Morphology: No cricopharyngeal bar is identified. No cervical esophageal webs. No Zenker's diverti culum. No strictures. IMPRESSION: Mild vallecular pooling otherwise no laryngeal penetration or tracheobronchial aspiration . Dictated by: Abiodun LINDSEY Interpreted: Vanessa Torres MD on 04/14/2017 at 13:06 Approved by: Vanessa Torres M.D. on 04/14/2017 at 17:10
--- NOTE | 2017-04-14 17:56 | PCM.PNMED ---
Subjective Date of Service Apr 14, 2017 Subjective No overnight events. Exam Vital Signs Vital Sign - Last Date Time Temp Pulse Resp B/P Pulse Ox O2 Delivery O2 Flow Rate FiO2 04/14/17 14:56 36.9 106 18 107/65 94 Room Air Intake and Output 04/13/17 04/13/17 04/14/17 Cumulative From/Thru 15:00 23:00 07:00 03/24/17 14:24 - 04/14/17 06:18 Intake Total 566 ml 232 ml 47892 ml Output Total 700 ml 250 ml 20077 ml Balance -134 ml -18 ml 1322 ml Intake Oral 440 ml 100 ml 1095 ml IV Total 126 ml 132 ml 26342 ml Tube Feeding 40 ml TPN/PPN 81949 ml Tube Irrigant 120 ml Output Urine Total 400 ml 150 ml 21072 ml Stool Total 1252 ml Gastric Drainage Total 4260 ml Drainage Total 300 ml 100 ml 3395 ml Estimated Blood Loss 120 ml # Voids 4 # Bowel Movements 1 Exam General: No acute distress, well-developed, malnourished HEENT: Normocephalic, atraumatic. External ears without defect. Pupils equal, round, and reactive to light and accommodation. Anicteric sclerae, moist conjunctivae. Cardiovascular: Regular rate and rhythm with no murmurs, rubs, or gallops appreciated Pulmonary: Patient continues to have Mild rhonchi, no rales, no wheezes. Breathing well on room air. Abdomen: Bowel tones present. Soft, non-distended, non-tender, ostomy putting out brown fluid. Extremities: No clubbing, cyanosis, edema, Pulses intact. Skin: Normal temperature, turgor, and texture; no rash, ulcers, or subcutaneous nodules appreciated. Neurological: Slurred speech with daily improvement. Cranial nerves grossly intact. Patient appears to have normal movement of arms and legs Psychiatric: Patient appears upbeat, normal mood and affect. Patient remains marginally confused, although appears to be improving. Multiple reported hallucinations. IVs and Medications Medications Reviewed: Medications were reviewed in detail Lab and Diagnostics Result Diagram: 04/14/17 0505 04/14/17 0505 Microbiology 04/07/17 Blood Fungal Culture- Pending 04/04/17 Stool Occult Blood (ÁNGELA) - Positive 03/24/17 MRSA (PCR) - Negative 04/07/17 Urine Culture - No growth X-Rays, CTs and MRIs CT ABDOMEN AND PELVIS WITH CONTRAST IMPRESSION: 1. Stable low density fluid collection around the surgical drain when compared with the study dated 03/30/17. No definite rim enhancement to suggest organizing abscess. 2. Decreased pleural effusions and consolidation at the lung bases are with the prior study. Dictated by: Vanessa Torres M.D. on 04/03/2017 at 15:29 04/05/17 - X-RAY CHEST ONE VIEW, PORTABLE IMPRESSION: Persistent left basilar airspace opacity consistent with atelectasis versus aspiration or infection. Approved by: Diane Celeste MD, PhD on 04/05/2017 at 12:25 04/06/17 - X-RAY CHEST ONE VIEW, PORTABLE IMPRESSION: Persistent left basilar airspace opacity consistent with atelectasis versus aspiration or pneumonia. Approved by: Vanessa Torres M.D. on 04/06/2017 at 9:28 . Additional Diagnostics 04/05/17 - NM HIDA SCAN WITH CCK - IMPRESSION: 1. Normal filling of gallbladder. No evidence for acute cholecystitis. 2. Normal contractile response of gallbladder to CCK infusion. Approved by: Ignacia Melgar M.D. on 04/05/2017 at 17:22 US VENOUS LEG DUPLEX BILATERAL- IMPRESSION: No DVT found. Approved by: Jimbo Timmons M.D. on 04/06/2017 at 18:37 04/07/17 - US ABDOMEN, LIMITED - IMPRESSION: 1. Increased hepatic echogenicity noted likely related to fatty infiltration of the liver but other sources of hepatocellular disease cannot be excluded. Recommend clinical correlation. 2. Cholelithiasis with thickened and mildly edematous gallbladder wall which may be related to developing cholecystitis. Correlate clinically. Approved by: Vanessa Torres M.D. on 04/07/2017 at 14:43 04/07/17 - MR ABDOMEN MRCP - IMPRESSION: 1. Cholelithiasis with at least 2 stones in the gallbladder neck. No marked enlargement of the gallbladder or apparent wall thickening. No pericholecystic inflammation. 2. Intrahepatic and extrahepatic bile ducts are normal in caliber. No filling defects are demonstrated. 3. Right kidney is absent. Left kidney appears normal noting exophytic cyst laterally 4. Pathologic fracture L1 . Approved by: Brayden Denise M.D. on 04/07/2017 at 13:32 . Assessment & Plan 71 year old gentleman with a history of CAD with 2 stents, COPD, hyperlipidemia , and right-sided renal cell carcinoma (s/p nephrectomy in October 2016) currently treated with Pazopanib presenting to the CCU hypotensive and was initially intubated status post sigmoid colectomy with descending colostomy for perforated diverticulitis. Elevated liver function markers including alkaline phosphatase, POA, acute. Active Patient has had high normal Alk Phos since admission - Hepatic enzymes slightly elevated in parallel - Ultrasound of the abdomen shows a prominent gallbladder (4.2 mm) Developing cholecystitis cannot be excluded. - GGT 520 consistent with cholecystitis and/or common bile duct obstruction - HIDA scan obtained on 04/05 shows no evidence of cholecystitis. Results as above - MRCP shows no evidence of cholecystitis or choledocholithiasis Results as above - Surgery, Dr. Sagastume following- cholestasis. - GI, following- f/u recs. Normocytic anemia, present on admission, active - Hemoglobin slowly trending down since admission, stable in low 7's. - Stools found to be guaiac positive, however no obvious GI loss, and no other sources of bleeding noted - Consider transfusion if patient remains less than 7.0 on [id number] lab draws. - Patient infused with iron sodium gluconate on 04/08 Protein calorie malnutrition, acute, active -Patient tolerating stim diet as of 04/06, speech therapy to evaluate the patient again and advance diet as appropriate. - Olanzapine and dronabinol added to stimulate patient diet - CHEMICAL COMPOUNDER HELPER rec MBS done 04/14 showed Mild vallecular pooling otherwise no laryngeal penetration or tracheobronchial aspiration. - CHEMICAL COMPOUNDER HELPER recs [place]/ Pureed 1:1 feeding, Acute Encephalopathy, not present on admission, active - As the patient continues to be more alert and vocal post extubation, Level of encephalopathy tends to wax and wane - Multiple possibilities previously discussed, however no interventions planned at this time. - Continue to monitor - Consider Change Lactulose to prn Fevers of unknown origin, not present on admission, resolved - Temperatures within normal limits for the last several days. - None noted since 04/07 consistent with possible side effect of micafungin as this was discontinued - Other possibilities discussed previously - ID was following, meropenem discontinued Hypertension, chronic. Present on admission. Stable -Patient remains tachycardic with increasing blood pressures - Held Lisinopril 40mg PO daily, consider restarting if blood pressures allowing - Restarted Metoprolol succinate 50mg PO daily Perforated diverticulitis with intra-abdominal abscess. S/P sigmoid colectomy and descending colostomy, stable -Ostomy output appropriate -[place] and ARCELIA drain should remain for now, surgery continues to follow -Continue IV meropenem for now -Repeat CT abdomen 04/03 shows resolving pleural effusions, mild abdominal fluid with no evidence of abscess. Acute Hypoxic Respiratory Failure due to surgery and COPD, chronic. Present on admission. Resolved -Pt intubated and sedated in the CCU. Extubated on 03/31 -Patient currently breathing well on room air Coronary artery disease, chronic. Present on admission. stable. -Pt with prior [place] and two stents. Presented with mild chest pain with negative cardiac enzymes and no acute ischemic changes noted on ECG. -Continue home simvastatin and aspirin when able -Continuous cardiac monitoring. Renal cell carcinoma of right kidney, chronic. Presumed stable. -Pt is s/p nephrectomy in October 2016, previously treated with Pazopanib and dexamethasone. -Per recommendations of oncology Pazopanib and dexamethasone may be held for 4- 6 weeks while patient stabilizes. -CT abd/pelvis showed a renal cyst as above. -Resumed oral medications. Diabetes mellitus, type 2, chronic. Present on admission. Presumed stable. -Current outpatient therapy is Metformin 500mg PO BID -Hold Metformin -Continue tight glucose control. Dispo- plan to discharge to SNF in 1-2 days once medically cleared. GI Prophylaxis: Not indicated VTE Prophylaxis: Sub-Q Heparin (Unfractionated), SCDs VTE Mechanical Devices: Intermittant Pneumatic CD Resuscitation Status: CPR: Attempt Resuscitation Walker Barnhart MD Apr 14, 2017 17:56
[2017-04-14 18:02] VITALS: BP 116/75; PULSE 108; RESP 18; O2SAT 95
--- NOTE | 2017-04-14 18:19 | NUR ---
Activity / confusion Pt still very weak; does not like sitting up in chair. Per PT, pt needs to be up in the chair 5-6 times/day. Sling under pt so he can be safely moved from bed to chair and back. Encouraged pt to move more even while lying in bed. Pt's reported that pt was confused and talking about things in the garage. Upon assessment pt is not oriented to time (thought it was 1978) but he was oriented to self and place today. Speech remains slurred. Will encourage increased oral intake: nectar thick with meals; thin water okay between meals.
[2017-04-14 19:20] VITALS: BP 122/73; PULSE 107; RESP 16; O2SAT 95
[2017-04-15] MEDS: Heparin 5,000 Unit/mL Inj SUBQ SCH ×3 (00:41→17:04)
--- NOTE | 2017-04-15 03:19 | NUR ---
Mentation Patient alert to self & place at beginning of shift. At around 0030, patient asking about people in the room that were not present. Also states he saw his looking in the window from outside the room after she had gone home. Alert to self only at that time. Remains pleasant and cooperative with care. Denies pain. FELDT score= 0 this shift.
[2017-04-15 06:20] VITALS: BP 123/72; PULSE 106; RESP 18; O2SAT 97
[2017-04-15 08:26] LABS: BASOPHILS % (AUTO) 1.1 % (0-3); EOSINOPHILS % (AUTO) 3.8 % (0-5); MONOCYTES % (AUTO) 9.8 % (4-12); Mean Corpuscular Hemoglobin 30.4 pg (27.0-35.0); Mean Corpuscular Volume 98.5 fL (81-100); NEUTROPHILS % (AUTO) 70.9 % (40-74); Platelet Count 694 bil/L (150-400)
[2017-04-15 08:48] LABS: Bilirubin, Direct 0.3 mg/dL (0.0-0.3); Magnesium 1.9 mg/dL (1.6-2.6); Phosphorus 2.4 mg/dL (2.5-4.9)
--- NOTE | 2017-04-15 10:05 | NUR ---
CR verbally signed via T/C to pt's spouse Augustina
[2017-04-15] MEDS: MeTOProlol XL 50 mg ER24 Tablet PO SCH (10:23)
--- NOTE | 2017-04-15 10:56 | PROG NOTE ---
[address] [address] PROGRESS NOTE PATIENT: JOSAFAT SOLIS : 1945 MR#: [id number] ADMIT: 03/24/2017 JOB ID: [id number] DATE: 04/15/2017 SUBJECTIVE: The patient is seen in followup. He remains intermittently confused. He is not complaining of abdominal pain and his main complaint today is that he does not like the hospital food. When questioned about going to a group home facility, he also states that he would rather than go to a rest home. OBJECTIVE: Temperature 36.8, pulse 106, blood pressure 123/72, saturation 97% on room air. General: He is sitting up in a chair, in no acute distress. Chest is clear. Heart: Regular rate and rhythm. No murmurs. Abdomen is soft, nondistended. His colostomy has stool in the appliance. Wound VAC is intact to the midline wound with no erythema. LABORATORIES: White count is 10.4, hematocrit 25.6, platelets 694. Chemistry is pending. ASSESSMENT AND PLAN: A 71-year-old man with perforated sigmoid diverticulitis with feculent peritonitis status post Diallo procedure. From a surgical standpoint, he has been quite stable and the main issue has been delirium versus metabolic encephalopathy. That continues to slowly improve. Wound VAC will be continued to his midline wound. General Surgery will continue to follow while a disposition plan is worked out.
[2017-04-15] MEDS ORDERED: Potassium Chloride 20 mEq/15 mL 15mL Oral Soln PO ONE (11:55)
--- NOTE | 2017-04-15 11:55 | PCM.PNMED ---
Subjective Date of Service Apr 15, 2017 Exam Vital Signs Vital Sign - Last Date Time Temp Pulse Resp B/P Pulse Ox O2 Delivery O2 Flow Rate FiO2 04/15/17 06:20 36.8 106 18 123/72 97 Room Air Intake and Output 04/14/17 04/14/17 04/15/17 Cumulative From/Thru 15:00 23:00 07:00 03/24/17 14:24 - 04/15/17 06:40 Intake Total 360 ml 213 ml 31209 ml Output Total 150 ml 350 ml 54240 ml Balance 210 ml -137 ml 1395 ml Intake Oral 311 ml 50 ml 1456 ml IV Total 49 ml 163 ml 23677 ml Tube Feeding 40 ml TPN/PPN 83989 ml Tube Irrigant 120 ml Output Urine Total 150 ml 350 ml 39919 ml Stool Total 1252 ml Gastric Drainage Total 4260 ml Drainage Total 0 ml 3395 ml Estimated Blood Loss 120 ml # Voids 4 # Bowel Movements 1 Exam General: No acute distress, AOX1 Today HEENT: Normocephalic, atraumatic. External ears without defect. Pupils equal, round, and reactive to light and accommodation. Anicteric sclerae, moist conjunctivae. Cardiovascular: Regular rate and rhythm with no murmurs, rubs, or gallops appreciated Pulmonary: Mild rhonchi, no rales, no wheezes. Breathing well on room air. Abdomen: Bowel tones present. Soft, non-distended, non-tender, ostomy putting out brown fluid. Wound Vac midline abd- in place. Extremities: No clubbing, cyanosis, edema, Pulses intact. Skin: Normal temperature, turgor, and texture; no rash, ulcers, or subcutaneous nodules appreciated. Neurological: Cranial nerves grossly intact. Patient appears to have normal movement of arms and legs Psychiatric: Patient appears upbeat, normal mood and affect. Patient remains marginally confused, although appears to be improving. Multiple reported hallucinations. IVs and Medications Medications Reviewed: Medications were reviewed in detail Lab and Diagnostics Result Diagram: 04/15/17 0810 04/15/17 0810 Microbiology 04/07/17 Blood Fungal Culture- Pending 04/04/17 Stool Occult Blood (ÁNGELA) - Positive 03/24/17 MRSA (PCR) - Negative 04/07/17 Urine Culture - No growth X-Rays, CTs and MRIs CT ABDOMEN AND PELVIS WITH CONTRAST IMPRESSION: 1. Stable low density fluid collection around the surgical drain when compared with the study dated 03/30/17. No definite rim enhancement to suggest organizing abscess. 2. Decreased pleural effusions and consolidation at the lung bases are with the prior study. Dictated by: Vanessa Torres M.D. on 04/03/2017 at 15:29 04/05/17 - X-RAY CHEST ONE VIEW, PORTABLE IMPRESSION: Persistent left basilar airspace opacity consistent with atelectasis versus aspiration or infection. Approved by: Diane Celeste MD, PhD on 04/05/2017 at 12:25 04/06/17 - X-RAY CHEST ONE VIEW, PORTABLE IMPRESSION: Persistent left basilar airspace opacity consistent with atelectasis versus aspiration or pneumonia. Approved by: Vanessa Torres M.D. on 04/06/2017 at 9:28 . Additional Diagnostics 04/05/17 - NM HIDA SCAN WITH CCK - IMPRESSION: 1. Normal filling of gallbladder. No evidence for acute cholecystitis. 2. Normal contractile response of gallbladder to CCK infusion. Approved by: Ignacia Melgar M.D. on 04/05/2017 at 17:22 US VENOUS LEG DUPLEX BILATERAL- IMPRESSION: No DVT found. Approved by: Jimbo Timmons M.D. on 04/06/2017 at 18:37 04/07/17 - US ABDOMEN, LIMITED - IMPRESSION: 1. Increased hepatic echogenicity noted likely related to fatty infiltration of the liver but other sources of hepatocellular disease cannot be excluded. Recommend clinical correlation. 2. Cholelithiasis with thickened and mildly edematous gallbladder wall which may be related to developing cholecystitis. Correlate clinically. Approved by: Vanessa Torres M.D. on 04/07/2017 at 14:43 04/07/17 - MR ABDOMEN MRCP - IMPRESSION: 1. Cholelithiasis with at least 2 stones in the gallbladder neck. No marked enlargement of the gallbladder or apparent wall thickening. No pericholecystic inflammation. 2. Intrahepatic and extrahepatic bile ducts are normal in caliber. No filling defects are demonstrated. 3. Right kidney is absent. Left kidney appears normal noting exophytic cyst laterally 4. Pathologic fracture L1 . Approved by: Brayden Denise M.D. on 04/07/2017 at 13:32 . Assessment & Plan 71 year old gentleman with a history of CAD with 2 stents, COPD, hyperlipidemia , and right-sided renal cell carcinoma (s/p nephrectomy in October 2016) currently treated with Pazopanib presenting to the CCU hypotensive with perforated sigmoid diverticulitis with feculent peritonitis status post sigmoid colectomy with descending colostomy. Perforated diverticulitis with intra-abdominal abscess, poa, active- S/P sigmoid colectomy and descending colostomy -Ostomy output appropriate. -Repeat CT abdomen 04/03 shows resolving pleural effusions, mild abdominal fluid with no evidence of abscess. - Surgery, Dr. Sagastume following-Wound VAC will be continued to his midline wound, stable for transfer to facility. - GI, following- f/u recs. Elevated liver function markers including alkaline phosphatase, POA, acute. Active Patient has had high normal Alk Phos since admission - Hepatic enzymes slightly elevated in parallel - Ultrasound of the abdomen shows a prominent gallbladder (4.2 mm) Developing cholecystitis cannot be excluded. - GGT 520 consistent with cholecystitis and/or common bile duct obstruction - HIDA scan obtained on 04/05 shows no evidence of cholecystitis. Results as above - MRCP shows no evidence of cholecystitis or choledocholithiasis Results as above Protein calorie malnutrition, acute, active -Patient tolerating stim diet as of 04/06, speech therapy to evaluate the patient again and advance diet as appropriate. - Olanzapine and dronabinol added to stimulate patient diet - WEB ART DIRECTOR rec MBS done 04/14 showed Mild vallecular pooling otherwise no laryngeal penetration or tracheobronchial aspiration. - WEB ART DIRECTOR recs [place]/ Pureed 1:1 feeding, Acute Encephalopathy, not present on admission, active - As the patient continues to be more alert and vocal post extubation, Level of encephalopathy tends to wax and wane - Multiple possibilities previously discussed, however no interventions planned at this time. - Continue to monitor Normocytic anemia, present on admission, stable. - Hemoglobin slowly trending down since admission, stable in low 7's. - Stools found to be guaiac positive, however no obvious GI loss, and no other sources of bleeding noted - Consider transfusion if patient remains less than 7.0 on [id number] lab draws. - Patient infused with iron sodium gluconate on 04/08 Fevers of unknown origin, not present on admission, resolved - Temperatures within normal limits for the last several days. - None noted since 04/07 consistent with possible side effect of micafungin as this was discontinued - Other possibilities discussed previously - ID was following, meropenem discontinued Hypertension, chronic. Present on admission. Stable -Patient remains tachycardic with increasing blood pressures - Held Lisinopril 40mg PO daily, consider restarting if blood pressures allowing - Restarted Metoprolol succinate 50mg PO daily Acute Hypoxic Respiratory Failure due to surgery and COPD, chronic. Present on admission. Resolved -Pt intubated and sedated in the CCU. Extubated on 03/31 -Patient currently breathing well on room air Coronary artery disease, chronic. Present on admission. stable. -Pt with prior [place] and two stents. Presented with mild chest pain with negative cardiac enzymes and no acute ischemic changes noted on ECG. -Continue home simvastatin and aspirin when able -Continuous cardiac monitoring. Renal cell carcinoma of right kidney, chronic. Presumed stable. -Pt is s/p nephrectomy in October 2016, previously treated with Pazopanib and dexamethasone. -Per recommendations of oncology Pazopanib and dexamethasone may be held for 4- 6 weeks while patient stabilizes. -CT abd/pelvis showed a renal cyst as above. -Resumed oral medications. Diabetes mellitus, type 2, chronic. Present on admission. Presumed stable. -Current outpatient therapy is Metformin 500mg PO BID -Hold Metformin -Continue tight glucose control. Dispo- plan to discharge to SNF in 1-2 days once medically cleared. PT recommendation for BLS transport. [facility] can accept pt with 1:1 feeding/ assist per WEB ART DIRECTOR rec. GI Prophylaxis: Not indicated VTE Prophylaxis: Sub-Q Heparin (Unfractionated), SCDs VTE Mechanical Devices: Intermittant Pneumatic CD Resuscitation Status: CPR: Attempt Resuscitation Walker Barnhart MD Apr 15, 2017 11:55
[2017-04-15 12:41] VITALS: BP 105/74; PULSE 147; RESP 20; O2SAT 98
[2017-04-15] MEDS: Lactulose 20 Gm/30 mL 30 mL Syrup PO SCH (13:20)
[2017-04-15 20:11] VITALS: BP 125/65; PULSE 115; RESP 18; O2SAT 94
[2017-04-16] MEDS: Heparin 5,000 Unit/mL Inj SUBQ SCH ×3 (00:34→18:15)
--- NOTE | 2017-04-16 04:24 | NUR ---
Activity/Mentation Patient in bed all of shift. Wiggles around quite a bit. Q2hour turns. Alert to self & place. When asked about the date, replies with 1993. Cooperative with care. Denies any pain or discomfort when asked. FELDT score= 0.
[2017-04-16 05:53] VITALS: BP 128/73; PULSE 102; RESP 18; O2SAT 95
[2017-04-16] MEDS: Lactulose 20 Gm/30 mL 30 mL Syrup PO SCH (08:24)
[2017-04-16] MEDS ORDERED: MeTOProlol XL 50 mg ER24 Tablet PO ONE (09:16)
[2017-04-16 09:28] VITALS: BP 122/82; PULSE 101; RESP 20; O2SAT 94
--- NOTE | 2017-04-16 10:23 | PROG NOTE ---
[address] [address] PROGRESS NOTE PATIENT: JOSAFAT SOLIS : 1945 MR#: [id number] ADMIT: 03/24/2017 JOB ID: [id number] DATE: 04/16/2017 SUBJECTIVE: Leodan is seen in followup. He is not complaining of any abdominal pain. His main ongoing issue is intermittent confusion. He still thinks it is approximately 1993. OBJECTIVE: Temperature 36.8, pulse 102, blood pressure 128/73, saturation 95% on room air. In general, he is resting in bed in no acute distress. Chest is clear. Heart regular rate and rhythm, no murmurs. Abdomen is soft, nontender, nondistended. His midline wound has no erythema with a wound VAC intact. Colostomy is intact with some stool in the appliance. ASSESSMENT AND PLAN: A 71-year-old man with perforated sigmoid diverticulitis with feculent peritonitis status post Diallo's procedure. He is doing well from a surgical standpoint with persistent delirium. No additional input from a surgical standpoint other than continuing wound VAC for his midline wound.
--- NOTE | 2017-04-16 10:37 | PCM.DC.MED ---
Discharge Summary Date of Service Apr 16, 2017 Dates of Hospitalization Date of Hospital Admission Mar 24, 2017 at 17:07 Date of Discharge: Apr 18, 2017 Providers: Admitting Physician: Aaron Bailey MD Primary Care Physician: Vik Sagastume MD Attending Physician: Augustin Tejeda MD Diagnosis at Time of Discharge Diagnosis at Time of Discharge Perforated diverticulitis with intra-abdominal abscess, poa, active- S/P sigmoid colectomy and descending colostomy Elevated liver function markers including alkaline phosphatase, POA, acute. Active Protein calorie malnutrition, acute, active Acute Encephalopathy, not present on admission, active Normocytic anemia, present on admission, stable. Fevers of unknown origin, not present on admission, resolved Hypertension, chronic. Present on admission. Stable. Acute Hypoxic Respiratory Failure due to surgery and COPD, chronic. Present on admission. Resolved Coronary artery disease, chronic. Present on admission. stable. Renal cell carcinoma of right kidney, chronic. Presumed stable. Diabetes mellitus, type 2, chronic. Present on admission. Presumed stable. Procedures XRay, CTs & MRIs CT ABDOMEN AND PELVIS WITH CONTRAST IMPRESSION: 1. Stable low density fluid collection around the surgical drain when compared with the study dated 03/30/17. No definite rim enhancement to suggest organizing abscess. 2. Decreased pleural effusions and consolidation at the lung bases are with the prior study. Dictated by: Vanessa Torres M.D. on 04/03/2017 at 15:29 04/05/17 - X-RAY CHEST ONE VIEW, PORTABLE IMPRESSION: Persistent left basilar airspace opacity consistent with atelectasis versus aspiration or infection. Approved by: Diane Celeste MD, PhD on 04/05/2017 at 12:25 04/06/17 - X-RAY CHEST ONE VIEW, PORTABLE IMPRESSION: Persistent left basilar airspace opacity consistent with atelectasis versus aspiration or pneumonia. Approved by: Vanessa Torres M.D. on 04/06/2017 at 9:28 . Other Diagnostics 04/05/17 - NM HIDA SCAN WITH CCK - IMPRESSION: 1. Normal filling of gallbladder. No evidence for acute cholecystitis. 2. Normal contractile response of gallbladder to CCK infusion. Approved by: Ignacia Melgar M.D. on 04/05/2017 at 17:22 VENOUS LEG DUPLEX BILATERAL- IMPRESSION: No DVT found. Approved by: Jimbo Timmons M.D. on 04/06/2017 at 18:37 04/07/17 - US ABDOMEN, LIMITED - IMPRESSION: 1. Increased hepatic echogenicity noted likely related to fatty infiltration of the liver but other sources of hepatocellular disease cannot be excluded. Recommend clinical correlation. 2. Cholelithiasis with thickened and mildly edematous gallbladder wall which may be related to developing cholecystitis. Correlate clinically. Approved by: Vanessa Torres M.D. on 04/07/2017 at 14:43 04/07/17 - MR ABDOMEN MRCP - IMPRESSION: 1. Cholelithiasis with at least 2 stones in the gallbladder neck. No marked enlargement of the gallbladder or apparent wall thickening. No pericholecystic inflammation. 2. Intrahepatic and extrahepatic bile ducts are normal in caliber. No filling defects are demonstrated. 3. Right kidney is absent. Left kidney appears normal noting exophytic cyst laterally 4. Pathologic fracture L1 . Approved by: Brayden Denise M.D. on 04/07/2017 at 13:32 . Brief History Per hpi on 03/24/[address] Gipson Mr. Humberto Saldivar is a 71 year old gentleman with a history of CAD with 2 stents, COPD, hyperlipidemia, and right-sided renal cell carcinoma (s/p nephrectomy in October 2016) presenting to the CCU hypotensive and intubated status post sigmoid colectomy and descending colostomy for perforated sigmoid diverticulitis with abscess. History obtained via chart review as patient is sedated and intubated at time of assessment. Patient presented to the ED via EMS earlier today with the complaint of syncope and generalized weakness. He reported left-sided abdominal pain as well as chest pain which he described as similar to what he experienced with prior WI. Additional symptoms included lack of appetite, subjective chills without fevers, mild shortness of breath, constipation and blood in his stool. On arrival, paramedics reportedly found the patient to be hypotensive with a systolic BP of 60. In the emergency department, he was intermittently hypotensive which improved with IV fluids. He was given IV meropenem prior to surgery and received a total of 2.5 liters fluids in the operating room. Estimated blood loss was 100ml, however after aggressive IV fluid resuscitation he remained hypotensive, requiring pressor support. At presentation to the emergency department: ECG showed sinus tachycardia with rate of 114, an old inferior infarct and non-specific ST-T wave changes; CXR was negative for acute pulmonary process and a CT chest showed a 4mm ground- glass nodule in the right middle lobe but was negative for pulmonary embolus. CT abd/pelvis showed perforated acute diverticulitis with intra-abdominal abscess, pneumoperitoneum, a cystic lesion within the body of the pancreas, cholelithiasis, and a severe wedge compression deformity at L1. On arrival to the CCU, he was hemodynamically stable maintaining a systolic blood pressure in the 130s-140s. However, his blood pressure continued to drop and norepinephrine was started for persistent hypotension. Preoperative labs in the emergency department were significant for a negative troponin, normal white blood cell count, elevated transaminases, and an elevated D-dimer (1.70). Hospital Course 71 year old gentleman with a history of CAD with 2 stents, COPD, hyperlipidemia , and right-sided renal cell carcinoma (s/p nephrectomy in October 2016) currently treated with Pazopanib presenting with hypotension and found to have perforated sigmoid diverticulitis with feculent peritonitis status post sigmoid colectomy with descending colostomy. Perforated diverticulitis with intra-abdominal abscess, poa, active- S/P sigmoid colectomy and descending colostomy -Ostomy output appropriate. -Repeat CT abdomen 04/03 shows resolving pleural effusions, mild abdominal fluid with no evidence of abscess. -Surgery, Dr. Sagastume -Discharge instructions- - Wound VAC will be continued to his midline wound, Wound VAC to be changed every 48-72 hours. - Follow up at Wound Center weekly once at [facility] for Wound and Colostomy care. Elevated liver function markers including alkaline phosphatase, POA, acute. Active Patient has had high normal Alk Phos since admission - Hepatic enzymes slightly elevated in parallel - Ultrasound of the abdomen shows a prominent gallbladder (4.2 mm) Developing cholecystitis cannot be excluded. - GGT 520 consistent with cholecystitis and/or common bile duct obstruction - HIDA scan obtained on 04/05 shows no evidence of cholecystitis. Results as above - MRCP shows no evidence of cholecystitis or choledocholithiasis Results as above - Hold Simvastatin until LFT's normalize. - GI 04/14- Recs. Continue to follow liver function labs. May need liver biopsy eventually to evaluate isolated markedly elevated ALP. CT pancreas protocol in 3 months. - Follow up with Gastroenterology, Dr. Gama in 1 week. Protein calorie malnutrition, acute, active - Patient tolerating stim diet as of 04/06, speech therapy to evaluate the patient again and advance diet as appropriate. - Olanzapine and dronabinol added to stimulate patient diet - SAND SLINGER OPERATOR rec MBS done 04/14 showed Mild vallecular pooling otherwise no laryngeal penetration or tracheobronchial aspiration. - SAND SLINGER OPERATOR recs K[place]al/ Pureed 1:1 feeding, Acute Encephalopathy, not present on admission, active - As the patient continues to be more alert and vocal post extubation, Level of encephalopathy tends to wax and wane - Multiple possibilities previously discussed, however no interventions planned at this time. - Continue to monitor - Continue Lactulose 20 gm daily with goal of daily bowel movements. Normocytic anemia, present on admission, stable. - Hemoglobin stable in low 7's. - Stools found to be guaiac positive, however no obvious GI loss, and no other sources of bleeding noted - Consider transfusion if patient remains less than 7.0 - Patient infused with iron sodium gluconate on 04/08. Fevers of unknown origin, not present on admission, resolved - Temperatures within normal limits for the last several days. - None noted since 04/07 consistent with possible side effect of micafungin as this was discontinued - Other possibilities discussed previously - ID was following, meropenem discontinued. No current suspicion of infection. Hypertension, chronic. Present on admission. Stable -Patient remains tachycardic with increasing blood pressures - Held Lisinopril 40mg PO daily, consider restarting if blood pressures allowing - Changed Metoprolol succinate to Tartrate 50mg twice daily. Can titrate up for sinus tachycardia. Acute Hypoxic Respiratory Failure due to surgery and COPD, chronic. Present on admission. Resolved -Pt intubated and sedated in the CCU. Extubated on 03/31 -Patient currently breathing well on room air. Coronary artery disease, chronic. Present on admission. stable. -Pt with prior WI and two stents. Presented with mild chest pain with negative cardiac enzymes and no acute ischemic changes noted on ECG. -Continue home simvastatin once LFT's normalize. Follow up with GI as above. -Resumed Aspirin. Renal cell carcinoma of right kidney, chronic. Presumed stable. -Pt is s/p nephrectomy in October 2016, previously treated with Pazopanib and dexamethasone. -Per recommendations of oncology Pazopanib and dexamethasone may be held for 4- 6 weeks while patient stabilizes. -CT abd/pelvis showed a renal cyst as above. -Resumed oral medications. -Follow up with Oncology as outpatient in 1-2 weeks to deterimine when to resume Pazopanib and dexamethasone. Diabetes mellitus, type 2, chronic. Present on admission. Presumed stable. -Current outpatient therapy is Metformin 500mg PO BID -Continue tight glucose control. Dispo- Discharge to SNF- [facility] 1-2 days. Will need follow by SAND SLINGER OPERATOR at [facility]. PT recommends transport via wheelchair. Olanzapine and dronabinol added to stimulate patient diet. Continue Lactulose 20 gm daily with goal of daily bowel movements. Held Lisinopri, can resume if blood pressure elevated. Hold Simvastatin until LFT's normalize. Changed Metoprolol succinate to Tartrate 50mg twice daily. Can titrate up for sinus tachycardia. Diet- SAND SLINGER OPERATOR recommends [place]al/ Pureed 1:1 feeding. Will need follow by SAND SLINGER OPERATOR at [facility]. Wound VAC will be continued to his midline wound, Wound VAC to be changed every 48-72 hours. Follow up at Wound Center weekly once at [facility] for Wound and Colostomy care. Check Liver Function in 3-4 days, ALP may still be elevated but make sure it's at least stable. Follow up with Gastroenterology, Dr. Gama in 1 week. May need liver biopsy to evaluate isolated markedly elevated ALP. CT pancreas protocol in 3 months. Exam Vital Signs (Last) Date Time Temp Pulse Resp B/P Pulse Ox O2 Delivery O2 Flow Rate FiO2 04/16/17 09:28 36.7 101 20 122/82 94 Room Air Test 03/24/17 14:10 03/26/17 11:40 04/01/17 04:30 04/04/17 11:10 Total Creatine Kinase 64U/L (21-232) Creatine Kinase MB 1.2ng/mL (0.0-10.4) Creatine Kinase MB % % (0.0-5.0) Pro-B-Type Natriuretic Peptide 168.1pg/mL (0-376) Fibrinogen 577mg/dL (157-380) D-Dimer 1.91mg/L FEU (<0.50) Troponin T 0.010ug/L (0.0-0.011) Gamma Glutamyl Transpeptidase 519IU/L (0-65) Test 04/06/17 03:20 04/07/17 04:15 04/07/17 06:25 04/07/17 19:40 Thyroid Stimulating Hormone (TSH) 2.430uIU/mL (0.450-4.500) Lactic Acid Level 0.9mmol/L (0.4-2.0) Lipase 34U/L (13-60) Procalcitonin 0.79ng/mL (0.00-0.08) Urine Color Yellow (YELLOW) Urine Appearance Hazy (CLEAR,HAZY) Urine pH 8.0 (5.0-8.0) Urine Specific [place] 1.020 (1.003-1.035) Urine Protein 100mg/dL (NEG,TRACE) Urine Glucose (UA) Negativemg/dL (NEGATIVE) Urine Ketones Tracemg/dL (NEGATIVE) Urine Occult Blood Moderate (NEGATIVE) Urine Nitrite Negative (NEGATIVE) Urine Bilirubin Negative (NEGATIVE) Urine Urobilinogen Normalmg/dL (NORMAL) Urine Leukocyte Esterase Negative (NEGATIVE) Urine RBC 3-10/hpf (0-2) Urine WBC 6-10/hpf (0-5) Urine Epithelial Cells Occasional/hpf (NONE-MOD) Urine Crystals None seen (NONE SEEN) Urine Bacteria Few/hpf (NONE-FEW) Urine Hyaline Casts None/lpf (NONE) Urine Granular Casts None seen (NONE SEEN) Urine Waxy Casts None seen (NONE SEEN) Urine Red Blood Cell Casts None seen (NONE SEEN) Urine White Blood Cell Casts None seen (NONE SEEN) Urine Mucus Present (None Seen) Urine Trichomonas None seen (NONE SEEN) Urine Yeast None (NONE SEEN) Urinalysis Comment None Urine Culture Reflexed Indicated Ammonia 38ug/dL (18-53) Test 04/08/17 04:30 04/09/17 06:45 04/10/17 04:45 04/11/17 17:20 Reticulocyte Count,Calculated 2.9% (0.6-2.6) Iron Level 28ug/dL (35-150) Total Iron Binding Capacity 166ug/dL (250-450) Percent Iron Saturation 17%sat (15-50) Unsaturated Iron Binding 137.6ug/dL Ferritin 2204ng/mL (30-400) Vitamin B12 Level 981pg/mL (211-946) Folate 13.9ng/mL (>3.0) Triglycerides Level 285mg/dL (0-149) Band Neutrophils % 2% (1-5) Prothrombin Time 13.6sec (8.1-12.5) Prothromb Time International Ratio 1.26ratio Hold Purple Top Tube Received (Received) Hold [place] Top Tube Received (Received) Test 04/15/17 08:10 White Blood Count 10.4th/mm3 (3.8-10.1) Red Blood Count 2.60mil/mm3 (4.40-5.80) Hemoglobin 7.9g/dL (13.8-17.2) Hematocrit 25.6% (41.0-50.0) Mean Corpuscular Volume 98.5fL (81-100) Mean Corpuscular Hemoglobin 30.4pg (27.0-35.0) Mean Corpuscular Hemoglobin Concent 30.9% (32.0-37.0) Red Cell Distribution Width 17.8% (12.3-15.4) Platelet Count 694bil/L (150-400) Neutrophils (%) (Auto) 70.9% (40-74) Lymphocytes (%) (Auto) 12.4% (14-46) Monocytes (%) (Auto) 9.8% (4-12) Eosinophils (%) (Auto) 3.8% (0-5) Basophils (%) (Auto) 1.1% (0-3) Sodium Level 144mEq/L (134-144) Potassium Level 3.3mEq/L (3.5-5.2) Chloride Level 108mEq/L (97-108) Carbon Dioxide Level 23mmol/L (18-29) Blood Urea Nitrogen 12mg/dL (8-27) Creatinine 0.68mg/dL (0.76-1.27) Estimat Glomerular Filtration Rate 123mL/min (>59) Glucose Level 108mg/dL (60-99) Calcium Level 8.3mg/dL (8.5-10.1) Phosphorus Level 2.4mg/dL (2.5-4.9) Magnesium Level 1.9mg/dL (1.6-2.6) Total Bilirubin 0.7mg/dL (0.0-1.2) Direct Bilirubin 0.3mg/dL (0.0-0.3) Aspartate Amino Transf (AST/SGOT) 66U/L (0-50) Alanine Aminotransferase (ALT/SGPT) 66U/L (0-44) Alkaline Phosphatase 1297U/L (25-160) Total Protein 5.4g/dL (6.4-8.4) Albumin 2.5g/dL (3.4-5.0) Microbiology Results 04/07/17 Blood Fungal Culture- Pending 04/04/17 Stool Occult Blood (ÁNGELA) - Positive 03/24/17 MRSA (PCR) - Negative 04/07/17 Urine Culture - No growth Discharge Medications Discharge Medications Aspirin (Aspirin) 81 Mg Tablet 81 MG PO DAILY (Reported) Docusate Sodium (Docusate Sodium) 250 Mg Capsule 250 MG PO HS (Reported) Dronabinol (Dronabinol) 2.5 Mg Capsule 2.5 MG PO DAILY Prescribed by: AUGUSTIN TEJEDA MD Lactulose (Lactulose) 20 Gm/30 Ml Solution 20 GM PO DAILY Prescribed by: AUGUSTIN TEJEDA MD Metformin (Metformin) 500 Mg Tablet 500 MG PO BID (Reported) Metoprolol Tartrate (Metoprolol Tartrate) 50 Mg Tablet 50 MG PO BID Prescribed by: AUGUSTIN TEJEDA MD Olanzapine (Olanzapine) 5 Mg Tablet 5 MG PO DAILY Prescribed by: AUGUSTIN TEJEDA MD As needed Acetaminophen (Acetaminophen) 325 Mg Capsule 650 MG PO QID PRN PRN For Pain ( Reported) Nitroglycerin SL (Nitrostat) 0.4 Mg Tab.subl 0.4 MG SL Q5MIN PRN PRN For Chest Pain (Reported) Additional med instructions Olanzapine and dronabinol added to stimulate patient diet. Continue Lactulose 20 gm daily with goal of daily bowel movements. Held Lisinopri, can resume if blood pressure elevated. Hold Simvastatin until LFT's normalize. Changed Metoprolol succinate to Tartrate 50mg twice daily. Can titrate up for sinus tachycardia. Followup Plan Disposition: Discharge to - [facility]. Will need follow by SAND SLINGER OPERATOR at [facility]. PT recommends transport via wheelchair. Follow-up plan Changed Metoprolol succinate to Tartrate 50mg twice daily. Can titrate up for sinus tachycardia. Diet- SAND SLINGER OPERATOR recommends [place]al/ Pureed 1:1 feeding. Will need follow by SAND SLINGER OPERATOR at [facility]. Wound VAC will be continued to his midline wound, Wound VAC to be changed every 48-72 hours. Discharge Diet: Other (SAND SLINGER OPERATOR recommends [place]/ Pureed 1:1 feeding) Discharge Activity: Other (Daily PT) Patient Instructions Follow up at Wound Center weekly once at [facility] for Wound and Colostomy care. Follow up with Gastroenterology, Dr. Gama in 1 week. May need liver biopsy to evaluate isolated markedly elevated ALP. CT pancreas protocol in 3 months. Provider: [facility] Follow-up in: 1 week Time spent Greater than 30 minutes was spent in preparation of discharge with greater than 50% of that time dedicated to patient counseling and coordination of care. Augustin Tejeda MD Apr 16, 2017 10:37
--- NOTE | 2017-04-16 10:58 | PCM.PNMED ---
Subjective Date of Service Apr 16, 2017 Subjective Pt had no overnight events. Denies pain. Exam Vital Signs Vital Sign - Last Date Time Temp Pulse Resp B/P Pulse Ox O2 Delivery O2 Flow Rate FiO2 04/16/17 09:28 36.7 101 20 122/82 94 Room Air Intake and Output 04/15/17 04/15/17 04/16/17 Cumulative From/Thru 15:00 23:00 07:00 03/24/17 14:24 - 04/16/17 04:20 Intake Total 500 ml 30575 ml Output Total 125 ml 54018 ml Balance 375 ml 1770 ml Intake Oral 500 ml 1956 ml IV Total 00695 ml Tube Feeding 40 ml TPN/PPN 42925 ml Tube Irrigant 120 ml Output Urine Total 125 ml 91984 ml Stool Total 1252 ml Gastric Drainage Total 4260 ml Drainage Total 3395 ml Estimated Blood Loss 120 ml # Voids 4 # Bowel Movements 1 Exam General: No acute distress, AOX2 Today HEENT: Normocephalic, atraumatic. External ears without defect. Pupils equal, round, and reactive to light and accommodation. Anicteric sclerae, moist conjunctivae. Cardiovascular: Regular rate and rhythm with no murmurs, rubs, or gallops appreciated Pulmonary: Mild rhonchi, no rales, no wheezes. Breathing well on room air. Abdomen: Bowel tones present. Soft, non-distended, non-tender, ostomy putting out brown fluid. Wound Vac midline abd- in place. Extremities: No clubbing, cyanosis, edema, Pulses intact. Skin: Normal temperature, turgor, and texture; no rash, ulcers, or subcutaneous nodules appreciated. Neurological: Cranial nerves grossly intact. Patient appears to have normal movement of arms and legs Psychiatric: Patient appears upbeat, normal mood and affect. IVs and Medications Medications Reviewed: Medications were reviewed in detail Lab and Diagnostics Result Diagram: 04/15/17 0810 04/15/17 0810 Microbiology 04/07/17 Blood Fungal Culture- Pending 04/04/17 Stool Occult Blood ([facility]ELA) - Positive 03/24/17 MRSA (PCR) - Negative 04/07/17 Urine Culture - No growth X-Rays, CTs and MRIs CT ABDOMEN AND PELVIS WITH CONTRAST IMPRESSION: 1. Stable low density fluid collection around the surgical drain when compared with the study dated 03/30/17. No definite rim enhancement to suggest organizing abscess. 2. Decreased pleural effusions and consolidation at the lung bases are with the prior study. Dictated by: Vanessa Torres M.D. on 04/03/2017 at 15:29 04/05/17 - X-RAY CHEST ONE VIEW, PORTABLE IMPRESSION: Persistent left basilar airspace opacity consistent with atelectasis versus aspiration or infection. Approved by: Diane Celeste MD, PhD on 04/05/2017 at 12:25 04/06/17 - X-RAY CHEST ONE VIEW, PORTABLE IMPRESSION: Persistent left basilar airspace opacity consistent with atelectasis versus aspiration or pneumonia. Approved by: Vanessa Torres M.D. on 04/06/2017 at 9:28 . Additional Diagnostics 04/05/17 - NM HIDA SCAN WITH CCK - IMPRESSION: 1. Normal filling of gallbladder. No evidence for acute cholecystitis. 2. Normal contractile response of gallbladder to CCK infusion. Approved by: Ignacia Melgar M.D. on 04/05/2017 at 17:22 US VENOUS LEG DUPLEX BILATERAL- IMPRESSION: No DVT found. Approved by: Jimbo Timmons M.D. on 04/06/2017 at 18:37 04/07/17 - US ABDOMEN, LIMITED - IMPRESSION: 1. Increased hepatic echogenicity noted likely related to fatty infiltration of the liver but other sources of hepatocellular disease cannot be excluded. Recommend clinical correlation. 2. Cholelithiasis with thickened and mildly edematous gallbladder wall which may be related to developing cholecystitis. Correlate clinically. Approved by: Vanessa Torres M.D. on 04/07/2017 at 14:43 04/07/17 - MR ABDOMEN MRCP - IMPRESSION: 1. Cholelithiasis with at least 2 stones in the gallbladder neck. No marked enlargement of the gallbladder or apparent wall thickening. No pericholecystic inflammation. 2. Intrahepatic and extrahepatic bile ducts are normal in caliber. No filling defects are demonstrated. 3. Right kidney is absent. Left kidney appears normal noting exophytic cyst laterally 4. Pathologic fracture L1 . Approved by: Brayden Denise M.D. on 04/07/2017 at 13:32 . Assessment & Plan 71 year old gentleman with a history of CAD with 2 stents, COPD, hyperlipidemia , and right-sided renal cell carcinoma (s/p nephrectomy in October 2016) currently treated with Pazopanib presenting with hypotension and found to have perforated sigmoid diverticulitis with feculent peritonitis status post sigmoid colectomy with descending colostomy. Perforated diverticulitis with intra-abdominal abscess, poa, active- S/P sigmoid colectomy and descending colostomy -Ostomy output appropriate. -Repeat CT abdomen 04/03 shows resolving pleural effusions, mild abdominal fluid with no evidence of abscess. -Surgery, Dr. Sagastume -Wound VAC will be continued to his midline wound, stable for transfer to facility. Elevated liver function markers including alkaline phosphatase, POA, acute. Active Patient has had high normal Alk Phos since admission - Hepatic enzymes slightly elevated in parallel - Ultrasound of the abdomen shows a prominent gallbladder (4.2 mm) Developing cholecystitis cannot be excluded. - GGT 520 consistent with cholecystitis and/or common bile duct obstruction - HIDA scan obtained on 04/05 shows no evidence of cholecystitis. Results as above - MRCP shows no evidence of cholecystitis or choledocholithiasis Results as above - GI 04/14- Recs. Continue to follow liver function labs. May need liver biopsy eventually to evaluate isolated markedly elevated ALP. CT pancreas protocol in 3 months. - Follow up with Gastroenterology, Dr. Gama in 1 week. Protein calorie malnutrition, acute, active - Patient tolerating stim diet as of 04/06, speech therapy to evaluate the patient again and advance diet as appropriate. - Olanzapine and dronabinol added to stimulate patient diet - AERODYNAMICIST rec MBS done 04/14 showed Mild vallecular pooling otherwise no laryngeal penetration or tracheobronchial aspiration. - AERODYNAMICIST recs Triangle/ Pureed 1:1 feeding, Acute Encephalopathy, not present on admission, active - As the patient continues to be more alert and vocal post extubation, Level of encephalopathy tends to wax and wane - Multiple possibilities previously discussed, however no interventions planned at this time. - Continue to monitor - Continue Lactulose 20 gm daily with goal of daily bowel movements. Normocytic anemia, present on admission, stable. - Hemoglobin stable in low 7's. - Stools found to be guaiac positive, however no obvious GI loss, and no other sources of bleeding noted - Consider transfusion if patient remains less than 7.0 - Patient infused with iron sodium gluconate on 04/08. Fevers of unknown origin, not present on admission, resolved - Temperatures within normal limits for the last several days. - None noted since 04/07 consistent with possible side effect of micafungin as this was discontinued - Other possibilities discussed previously - ID was following, meropenem discontinued. No current suspicion of infection. Hypertension, chronic. Present on admission. Stable -Patient remains tachycardic with increasing blood pressures - Held Lisinopril 40mg PO daily, consider restarting if blood pressures allowing - Changed Metoprolol succinate to Tartrate 50mg twice daily. Can titrate up for sinus tachycardia. Acute Hypoxic Respiratory Failure due to surgery and COPD, chronic. Present on admission. Resolved -Pt intubated and sedated in the CCU. Extubated on 03/31 -Patient currently breathing well on room air. Coronary artery disease, chronic. Present on admission. stable. -Pt with prior LA and two stents. Presented with mild chest pain with negative cardiac enzymes and no acute ischemic changes noted on ECG. -Continue home simvastatin once LFT's normalize. Follow up with GI as above. -Resumed Aspirin. Renal cell carcinoma of right kidney, chronic. Presumed stable. -Pt is s/p nephrectomy in October 2016, previously treated with Pazopanib and dexamethasone. -Per recommendations of oncology Pazopanib and dexamethasone may be held for 4- 6 weeks while patient stabilizes. -CT abd/pelvis showed a renal cyst as above. -Resumed oral medications. -Follow up with Oncology as outpatient. Diabetes mellitus, type 2, chronic. Present on admission. Presumed stable. -Current outpatient therapy is Metformin 500mg PO BID -Continue tight glucose control. Dispo- Discharge to SNF- [facility] recommends transport via wheelchair. Olanzapine and dronabinol added to stimulate patient diet. Continue Lactulose 20 gm daily with goal of daily bowel movements. Held Lisinopri, can resume if blood pressure elevated. Changed Metoprolol succinate to Tartrate 50mg twice daily. Can titrate up for sinus tachycardia. Diet- AERODYNAMICIST recommends Triangle/ Pureed 1:1 feeding. Continue wound (plus white VAC packing in new pockets) & ostomy care per protocol Continue to follow liver function labs and potassium daily every 2 days. Follow up with Gastroenterology, Dr. Gama in 1 week. May need liver biopsy to evaluate isolated markedly elevated ALP. CT pancreas protocol in 3 months. Follow up with Surgery, Dr. Sagastume, in 2 weeks. GI Prophylaxis: Not indicated VTE Prophylaxis: Sub-Q Heparin (Unfractionated), SCDs VTE Mechanical Devices: Intermittant Pneumatic CD Resuscitation Status: CPR: Attempt Resuscitation Walker Barnhart MD Apr 16, 2017 10:58
--- NOTE | 2017-04-16 13:50 | NUR ---
activity pt transferring much better today, can stand from sitting position now with minimal assist and take few steps with FWW. eating and drinking a bit better also. Still quite forgetful, but he knows where he is
[2017-04-16 14:30] VITALS: BP 110/77; PULSE 99; RESP 18; O2SAT 95
[2017-04-16 18:18] VITALS: BP 106/71; PULSE 105; RESP 19; O2SAT 96
[2017-04-16 20:36] VITALS: BP 112/66; PULSE 106; RESP 16; O2SAT 98
[2017-04-16] MEDS ORDERED: Albuterol 2.5 mg/3 mL Inhalation Solution NEB PRN (22:30)
--- NOTE | 2017-04-16 23:03 | NUR ---
Called to patients room for neb tx. when I arrived, pt denied shortness of breath, or difficulty breathing. Pt states he has had a horse voice since he was extubated. The nurse was concerned that the pt couldn't clear secretions. Pt states this is not a problem. Worked with pt on his IS and acapella. Pt reached 1250 on his IS. Pt asked if he could go to sleep. No neb given.
[2017-04-17] MEDS: Heparin 5,000 Unit/mL Inj SUBQ SCH ×3 (00:35→17:08)
[2017-04-17 04:02] VITALS: BP 132/72; PULSE 90; RESP 16; O2SAT 97
--- NOTE | 2017-04-17 06:42 | NUR ---
NOC PT initially assessed to have coarse crackles in both lungs with expiratory wheezes noted anteriorly. Called MD for neb treatments and then pt refused to have one when RT arrived. PT was able to cough and eventually clear his lungs. PT denies any pain. BS noted t/o. Colostomy is putting out brown, liquid stool. PT taking fluids with encouragement. Requested coffee this am, but refused when RN said it had to be thickened. Mepilex intact to sacrum. Plan is for pt to d.c to [facility] in near future.
--- NOTE | 2017-04-17 09:37 | DRSVH ---
PROCEDURE: X-RAY CHEST ONE VIEW, PORTABLE ([id number]) INDICATIONS: Cough, congestion TECHNIQUE: One view of the chest was acquired. COMPARISON: [facility], CR, XR CHEST 1VW (PORTABLE), 04/06/2017, 3:51. FINDINGS: Surgical changes and devices: Right subclavian catheter stable in position with the tip in the superi or vena cava. Lungs and pleura: No pleural effusions or definite pneumothorax. The medial lung apices are partial ly obscured by the patient's neck soft tissues. Lungs are clear without focal consolidation. Mediastinum: Mediastinal contours appear normal. Heart size is normal. Bones and chest wall: No suspicious bony lesions. Overlying soft tissues appear unremarkable. IMPRESSION: 1. No definite acute cardiopulmonary disease. Dictated by: Jan Rosales M.D. on 04/17/2017 at 9:35 Approved by: Jan Rosales M.D. on 04/17/2017 at 9:36
[2017-04-17 09:58] LABS: BASOPHILS % (AUTO) 1.1 % (0-3); EOSINOPHILS % (AUTO) 2.9 % (0-5); Mean Corpuscular Hemoglobin 30.4 pg (27.0-35.0); Mean Corpuscular Volume 98.6 fL (81-100); NEUTROPHILS % (AUTO) 73.2 % (40-74); Platelet Count 723 bil/L (150-400)
[2017-04-17] MEDS: Lactulose 20 Gm/30 mL 30 mL Syrup PO SCH (10:10)
[2017-04-17 10:12] VITALS: BP 122/69; PULSE 106; RESP 18; O2SAT 97
[2017-04-17 10:37] LABS: Bilirubin, Direct 0.3 mg/dL (0.0-0.3)
--- NOTE | 2017-04-17 12:25 | NUR ---
Social Work: Continued Discharge Planning/Multidisciplinary Rounds D: EMR reviewed. Pt is on day 24 of hospitalization. Pt discussed in multidisciplinary rounds and is not medically stable for discharge at this time, anticipate 1-2 more days. Pt will need wound vac at discharge. STEPHANIE discussed wound vac with . to contact surgery to determine if surgery wants [facility] to authorize/coordinate wound vac or if [facility] will coordinate. T/C to Lien at [facility] who confirmed they can placed wound vac and manage if they have an order from . STEPHANIE updated MD that [facility] or [facility] can place/authorize wound vac. to discuss with surgery and update SW. If surgery clears [facility] to place wound vac, will write order and SW to fax to [facility]. A: Pt for whom a SNF via wheelchair van is medically necessary. Pt who will need 1:1 feeding/assist at [facility]. P: Pt anticipated discharge to [facility] via wheelchair van with Dr. Parmar to follow. Per Clothing Designer, [facility] will accept pt with 1:1 for feeding/assist. STEPHANIE updated MD that [facility] or [facility] can place/authorize wound vac. to discuss with surgery and update SW. If surgery clears [facility] to place wound vac, will write order and SW to fax to [facility]. [facility] Addendum: 04/17/17 at 1735 by [facility] will place wound vac when pt is ready to discharge. [facility] will care for pt's wound vac and from [facility] will follow-up with pt 1x/week at [facility]. [facility]
--- NOTE | 2017-04-17 13:18 | PROG NOTE ---
[address] [address] PROGRESS NOTE PATIENT: JOSAFAT SOLIS : 1945 MR#: [id number] ADMIT: 03/24/2017 JOB ID: [id number] DATE: 04/17/2017 SUBJECTIVE: The patient is seen in followup. His main complaint is that the food here is not good and he wants to get out of the hospital. He is not sure about whether or not he is willing to go to a nursing facility after discharge from the hospital or not. OBJECTIVE: Temperature 36.7, pulse 106, blood pressure 122/69, saturation 97% on room air. General: He is sitting up in a chair in no acute distress. Chest is clear. Heart: Regular rate and rhythm. No murmurs. Abdomen is soft, nontender, nondistended. His colostomy in the left abdomen is putting out yellowish stool. The midline wound had a wound VAC intact with no erythema of the abdominal wall. LABORATORIES: White count is 13.0, hematocrit 27.9. Creatinine 0.69, glucose 128. ASSESSMENT/PLAN: A 71-year-old man with perforated sigmoid diverticulitis, status post Diallo procedure complicated by a long bout of delirium versus metabolic encephalopathy. He continues to slowly improve from that standpoint and today actually correctly knew which year it was. Surgically, I think he is clear for discharge from the hospital at any point. Wound VAC should be continued for now and will be changed every 48-72 hours.
--- NOTE | 2017-04-17 13:49 | PCM.PNMED ---
Subjective Date of Service Apr 17, 2017 Subjective Pt reports improved appetite last night, didn't finish breakfast today. Exam Vital Signs Vital Sign - Last Date Time Temp Pulse Resp B/P Pulse Ox O2 Delivery O2 Flow Rate FiO2 04/17/17 10:12 36.7 106 18 122/69 97 Room Air Intake and Output 04/16/17 04/16/17 04/17/17 Cumulative From/Thru 15:00 23:00 07:00 03/24/17 14:24 - 04/17/17 06:28 Intake Total 400 ml 550 ml 120 ml 75580 ml Output Total 600 ml 600 ml 280 ml 87557 ml Balance -200 ml -50 ml -160 ml 1360 ml Intake Oral 400 ml 550 ml 120 ml 3026 ml IV Total 14953 ml Tube Feeding 40 ml TPN/PPN 34823 ml Tube Irrigant 120 ml Output Urine Total 500 ml 600 ml 250 ml 12164 ml Stool Total 100 ml 1352 ml Gastric Drainage Total 4260 ml Drainage Total 0 ml 30 ml 3425 ml Estimated Blood Loss 120 ml # Voids 4 # Bowel Movements 1 Exam General: No acute distress, AOX2 HEENT: Normocephalic, atraumatic. External ears without defect. Pupils equal, round, and reactive to light and accommodation. Anicteric sclerae, moist conjunctivae. Cardiovascular: Regular rate and rhythm with no murmurs, rubs, or gallops appreciated Pulmonary: Mild rhonchi, no rales, no wheezes. Breathing well on room air. Abdomen: Bowel tones present. Soft, non-distended, non-tender, ostomy putting out brown fluid. Wound Vac midline abd- in place. Extremities: No clubbing, cyanosis, edema, Pulses intact. Skin: Normal temperature, turgor, and texture; no rash, ulcers, or subcutaneous nodules appreciated. Neurological: Cranial nerves grossly intact. Patient appears to have normal movement of arms and legs Psychiatric: Patient appears upbeat, normal mood and affect. IVs and Medications Medications Reviewed: Medications were reviewed in detail Lab and Diagnostics Result Diagram: 04/17/17 0910 04/17/17 0910 Microbiology 04/07/17 Blood Fungal Culture- Pending 04/04/17 Stool Occult Blood ([place]EL[place]) - Positive 03/24/17 MRSA (PCR) - Negative 04/07/17 Urine Culture - No growth X-Rays, CTs and MRIs CT ABDOMEN AND PELVIS WITH CONTRAST IMPRESSION: 1. Stable low density fluid collection around the surgical drain when compared with the study dated 03/30/17. No definite rim enhancement to suggest organizing abscess. 2. Decreased pleural effusions and consolidation at the lung bases are with the prior study. Dictated by: Vanessa Torres M.D. on 04/03/2017 at 15:29 04/05/17 - X-RAY CHEST ONE VIEW, PORTABLE IMPRESSION: Persistent left basilar airspace opacity consistent with atelectasis versus aspiration or infection. Approved by: Diane Celeste MD, PhD on 04/05/2017 at 12:25 04/06/17 - X-RAY CHEST ONE VIEW, PORTABLE IMPRESSION: Persistent left basilar airspace opacity consistent with atelectasis versus aspiration or pneumonia. Approved by: Vanessa Torres M.D. on 04/06/2017 at 9:28 . Additional Diagnostics 04/05/17 - NM HIDA SCAN WITH CCK - IMPRESSION: 1. Normal filling of gallbladder. No evidence for acute cholecystitis. 2. Normal contractile response of gallbladder to CCK infusion. Approved by: Ignacia Melgar M.D. on 04/05/2017 at 17:22 US VENOUS LEG DUPLEX BILATERAL- IMPRESSION: No DVT found. Approved by: Jimbo Timmons M.D. on 04/06/2017 at 18:37 04/07/17 - US ABDOMEN, LIMITED - IMPRESSION: 1. Increased hepatic echogenicity noted likely related to fatty infiltration of the liver but other sources of hepatocellular disease cannot be excluded. Recommend clinical correlation. 2. Cholelithiasis with thickened and mildly edematous gallbladder wall which may be related to developing cholecystitis. Correlate clinically. Approved by: Vanessa Torres M.D. on 04/07/2017 at 14:43 04/07/17 - MR ABDOMEN MRCP - IMPRESSION: 1. Cholelithiasis with at least 2 stones in the gallbladder neck. No marked enlargement of the gallbladder or apparent wall thickening. No pericholecystic inflammation. 2. Intrahepatic and extrahepatic bile ducts are normal in caliber. No filling defects are demonstrated. 3. Right kidney is absent. Left kidney appears normal noting exophytic cyst laterally 4. Pathologic fracture L1 . Approved by: Brayden Denise M.D. on 04/07/2017 at 13:32 . Assessment & Plan 71 year old gentleman with a history of CAD with 2 stents, COPD, hyperlipidemia , and right-sided renal cell carcinoma (s/p nephrectomy in October 2016) currently treated with Pazopanib presenting with hypotension and found to have perforated sigmoid diverticulitis with feculent peritonitis status post sigmoid colectomy with descending colostomy. Perforated diverticulitis with intra-abdominal abscess, poa, active- S/P sigmoid colectomy and descending colostomy -Ostomy output appropriate. -Repeat CT abdomen 04/03 shows resolving pleural effusions, mild abdominal fluid with no evidence of abscess. -Surgery, Dr. Sagastume -Discharge instructions- - Wound VAC will be continued to his midline wound, Wound VAC to be changed every 48-72 hours. - Follow up at Wound Center weekly once at [facility] for Wound and Colostomy care. Elevated liver function markers including alkaline phosphatase, POA, acute. Active Patient has had high normal Alk Phos since admission - Hepatic enzymes slightly elevated in parallel - Ultrasound of the abdomen shows a prominent gallbladder (4.2 mm) Developing cholecystitis cannot be excluded. - GGT 520 consistent with cholecystitis and/or common bile duct obstruction - HIDA scan obtained on 04/05 shows no evidence of cholecystitis. Results as above - MRCP shows no evidence of cholecystitis or choledocholithiasis Results as above - GI 04/14- Recs. Continue to follow liver function labs. May need liver biopsy eventually to evaluate isolated markedly elevated ALP. CT pancreas protocol in 3 months. - Follow up with Gastroenterology, Dr. Gama in 1 week. Protein calorie malnutrition, acute, active - Patient tolerating stim diet as of 04/06, speech therapy to evaluate the patient again and advance diet as appropriate. - Olanzapine and dronabinol added to stimulate patient diet - INFORMATION SYSTEMS AUDIT MANAGER rec MBS done 04/14 showed Mild vallecular pooling otherwise no laryngeal penetration or tracheobronchial aspiration. - INFORMATION SYSTEMS AUDIT MANAGER recs [place]/ Pureed 1:1 feeding, Acute Encephalopathy, not present on admission, active - As the patient continues to be more alert and vocal post extubation, Level of encephalopathy tends to wax and wane - Multiple possibilities previously discussed, however no interventions planned at this time. - Continue to monitor - Continue Lactulose 20 gm daily with goal of daily bowel movements. Normocytic anemia, present on admission, stable. - Hemoglobin stable in low 7's. - Stools found to be guaiac positive, however no obvious GI loss, and no other sources of bleeding noted - Consider transfusion if patient remains less than 7.0 - Patient infused with iron sodium gluconate on 04/08. Fevers of unknown origin, not present on admission, resolved - Temperatures within normal limits for the last several days. - None noted since 04/07 consistent with possible side effect of micafungin as this was discontinued - Other possibilities discussed previously - ID was following, meropenem discontinued. No current suspicion of infection. Hypertension, chronic. Present on admission. Stable -Patient remains tachycardic with increasing blood pressures - Held Lisinopril 40mg PO daily, consider restarting if blood pressures allowing - Changed Metoprolol succinate to Tartrate 50mg twice daily. Can titrate up for sinus tachycardia. Acute Hypoxic Respiratory Failure due to surgery and COPD, chronic. Present on admission. Resolved -Pt intubated and sedated in the CCU. Extubated on 03/31 -Patient currently breathing well on room air. Coronary artery disease, chronic. Present on admission. stable. -Pt with prior [place] and two stents. Presented with mild chest pain with negative cardiac enzymes and no acute ischemic changes noted on ECG. -Continue home simvastatin once LFT's normalize. Follow up with GI as above. -Resumed Aspirin. Renal cell carcinoma of right kidney, chronic. Presumed stable. -Pt is s/p nephrectomy in October 2016, previously treated with Pazopanib and dexamethasone. -Per recommendations of oncology Pazopanib and dexamethasone may be held for 4- 6 weeks while patient stabilizes. -CT abd/pelvis showed a renal cyst as above. -Resumed oral medications. -Follow up with Oncology as outpatient. Diabetes mellitus, type 2, chronic. Present on admission. Presumed stable. -Current outpatient therapy is Metformin 500mg PO BID -Continue tight glucose control. Dispo- Discharge to SNF- [facility] 1-2 days. PT recommends transport via wheelchair. Olanzapine and dronabinol added to stimulate patient diet. Continue Lactulose 20 gm daily with goal of daily bowel movements. Held Lisinopri, can resume if blood pressure elevated. Changed Metoprolol succinate to Tartrate 50mg twice daily. Can titrate up for sinus tachycardia. Diet- INFORMATION SYSTEMS AUDIT MANAGER recommends [place]/ Pureed 1:1 feeding. Continue to follow liver function labs and potassium daily every 2 days. Follow up with Gastroenterology, Dr. Gama in 1 week. May need liver biopsy to evaluate isolated markedly elevated ALP. CT pancreas protocol in 3 months. GI Prophylaxis: Not indicated VTE Prophylaxis: Sub-Q Heparin (Unfractionated), SCDs VTE Mechanical Devices: Intermittant Pneumatic CD Resuscitation Status: CPR: Attempt Resuscitation Walker Barnhart MD Apr 17, 2017 13:49
[2017-04-17 15:15] VITALS: BP 110/72; PULSE 98; RESP 17; O2SAT 98
--- NOTE | 2017-04-17 19:31 | NUR ---
Transferring Patient continues to require two people for transferring. Patient denies any pain or nausea this shift. Care is ongoing.
[2017-04-17 20:47] VITALS: BP 114/65; PULSE 123; RESP 16; O2SAT 97
[2017-04-18] MEDS: Heparin 5,000 Unit/mL Inj SUBQ SCH ×3 (01:17→17:11)
--- NOTE | 2017-04-18 04:51 | NUR ---
Mentation /PICC Pt fluctuates between being aware of situation and making statements that are unrelated to current situation, speech is mumbled and difficult to understand. Pt is able to repeat statements with greater clarity when asked. Cooperative with all care, denies pain, denies nausea. PICC line very stiff to flush in lumens except for red line. Will request IV therapy to assess. Hourly rounding ongoing.
[2017-04-18 05:17] VITALS: BP 114/70; PULSE 109; RESP 18; O2SAT 95
[2017-04-18] MEDS: Lactulose 20 Gm/30 mL 30 mL Syrup PO SCH (09:31)
--- NOTE | 2017-04-18 11:11 | NUR ---
Inpatient Wound and Ostomy Nurse Patient seen for NPWT change and ostomy system change. Convex wafer that was applied Monday with paste has maintained patency with no apparent leaks. This is preferable to Amanda ring with which patient had multiple leaks. Stoma remains below skin level, mostly beefy red and firm. Medial edge of stoma is quite retracted. Sutures are intact. Peristomal skin is warm and pink, no skin breakdown. Small convex wafer was opened to max size, cut to oval shape on medial side, barrier trimmed off-center to allow for placement with NPWT drape accommodation. Stoma paste was used and then pouch attached without challenge. Midline incision improved, now measures 6.0 cm L x 2.0 cm W x 2.0 cm D at center. Two pockets remain: the one that was at proximal third of incision is now centered in the wound and total depth 3.0 cm. The one at distal incision is total depth of 4.5 cm. Resistance is easily met with Q tip. Comparing these dimensions to last Monday (04/14/17), all dimensions in all directions are approximately 1 cm improvement. Wound bed beefy red and granulating. Edges well-adhered. Periwound pink and warm. Wound was cleansed with NS. Drape was placed as usual; Per Dr. Linder's instructions, each pocket was filled with 3 cm long white foam plug. Black foam was placed over this and remainder of wound was draped as usual. Black foam biscuit placed atop interior black foam to accomodate width of Trac pad. Total pieces of foam used: 2 white, 2 black. Suction achieved, 125 low continuous, after reinforcement of distal edge of drape, which is at panniculus. Due to wound location, adjacency to ostomy and abdominal fold, suction patency has been challenging but do-able with use of ostomy paste and drape reinforcement. Patient is expected to discharge today to [facility]. Inpatient Wound Vac unit will be switched out with Wound Center portable [employer] Wound Vac when patient is nearly ready to leave facility. Patient will see SHANE Rangel at outpatient Wound Center on Monday, 04/21 at 8:30 am for abdominal wound assessment and to ascertain that pockets are continuing to close, as well as complete NPWT dressing change. Since stoma remains retracted, patient should be seen the following week (04/24 or 04/25) by SHANE Dolan, for assessment of stoma. This visit can be coordinated with NPWT dressing change, as well.
--- NOTE | 2017-04-18 11:35 | NUR ---
Social Work: Readiness for Discharge/Multidisciplinary Rounds D: EMR reviewed. Pt is on day 25 of hospitalization. Pt discussed in multidisciplinary rounds and is nearing discharge, potential d/c today or tomorrow pending GI clearance. confirms that pt requires speech therapy at [facility]. T/C to Jhonatan at [facility] regarding wound VAC. Jhonatan requested that Labor Employment Associate at [facility] placed [facility] home wound VAC to be replaced by a wound VAC at [facility] and then the [facility] home Wound VAC will be returned to Wound Center at pt's follow up appointment. Jhonatan is agreeable to pt's discharge when medically ready. No orders have been placed at this time. A: Pt for whom a SNF via wheelchair van is medically necessary. Pt who will need 1:1 feeding/assist at [facility]. P: Anticipate discharge to [facility] via wheelchair van with Dr. Parmar to follow. Wound VAC to be placed prior to d/c. Paperwork is in chart, PASRR completed and in folder. SW will continue to follow. CUCA Coyle Addendum: 04/18/17 at 1506 by MEGAN RUSSELL SS Spoke with Hired Worker regarding [employer] Wound VAC. Medicare requires that [facility] provide the wound VAC, [facility] Wound VAC will not be provided by Wound Center. T/C to Jhonatan at [facility] regarding wound VAC. Jhonatan will not get pt's VAC until tomorrow, informed Hired Worker. Hired Worker is not comfortable with pt being disconnected from the wound VAC for longer than thirty minutes. Discussed with MD, MD agrees and cancelled discharge orders. Jhonatan agreeable to pt discharging tomorrow, Jhonatan cancelled transportation. RN updated and agreeable. Pt and pt's updated and agreeable. UR RN updated. Social Work continues to follow. Zohra Russell MSW
[2017-04-18] MEDS ORDERED: LACT10SO60 PO (12:07)
[2017-04-18] MEDS ORDERED: DRON2.5C10 PO (12:07)
[2017-04-18] MEDS ORDERED: METO50TA3 PO (12:07)
[2017-04-18] MEDS ORDERED: OLAN5TAB PO (12:07)
--- NOTE | 2017-04-18 12:14 | PCM.DIMED ---
Discharge Instructions Date of Service Apr 18, 2017 Dates of Hospitalization Mar 24, 2017 at 17:07 Discharge Diagnosis Discharge Diagnosis Perforated diverticulitis with intra-abdominal abscess, poa, active- S/P sigmoid colectomy and descending colostomy Elevated liver function markers including alkaline phosphatase, POA, acute. Active Protein calorie malnutrition, acute, active Acute Encephalopathy, not present on admission, active Normocytic anemia, present on admission, stable. Fevers of unknown origin, not present on admission, resolved Hypertension, chronic. Present on admission. Stable. Acute Hypoxic Respiratory Failure due to surgery and COPD, chronic. Present on admission. Resolved Coronary artery disease, chronic. Present on admission. stable. Renal cell carcinoma of right kidney, chronic. Presumed stable. Diabetes mellitus, type 2, chronic. Present on admission. Presumed stable. Medication Instructions Additional med instructions Olanzapine and dronabinol added to stimulate patient diet. Continue Lactulose 20 gm daily with goal of daily bowel movements. Held Lisinopri, can resume if blood pressure elevated. Hold Simvastatin until LFT's normalize. Changed Metoprolol succinate to Tartrate 50mg twice daily. Can titrate up for sinus tachycardia. Diet Discharge Diet: Other (DIGITAL MEDIA COORDINATOR recommends [place]/ Pureed 1:1 feeding) Activity Discharge Activity: Other (Daily PT) Patient Instructions Patient Instructions Follow up at Wound Center weekly once at [facility] for Wound and Colostomy care. Follow up with Gastroenterology, Dr. Gama in 1 week. May need liver biopsy to evaluate isolated markedly elevated ALP. CT pancreas protocol in 3 months. Follow-up plan Changed Metoprolol succinate to Tartrate 50mg twice daily. Can titrate up for sinus tachycardia. Diet- DIGITAL MEDIA COORDINATOR recommends [place]/ Pureed 1:1 feeding. Will need follow by DIGITAL MEDIA COORDINATOR at [facility]. Wound VAC will be continued to his midline wound, Wound VAC to be changed every 48-72 hours. Provider: [facility] Follow-up in: 1 week Walker Barnhart MD Apr 18, 2017 12:14
--- NOTE | 2017-04-18 12:33 | PCM.PNMED ---
Subjective Date of Service Apr 18, 2017 Subjective GASTROENTEROLOGY PROGRESS NOTE: Attending Physician: Murray Gama MD Resident Physician: Courtney Gibson DO No acute events overnight. Patient appears comfortable and denies abdominal pain , nausea or vomiting. He states that he doesn't really like the food but is tolerating his diet and trying to eat more to help improve his strength. He reports generalized weakness and fatigue. Exam Vital Signs Vital Sign - Last Date Time Temp Pulse Resp B/P Pulse Ox O2 Delivery O2 Flow Rate FiO2 04/18/17 05:17 36.9 109 18 114/70 95 Room Air Intake and Output 04/17/17 04/17/17 04/18/17 Cumulative From/Thru 15:00 23:00 07:00 03/24/17 14:24 - 04/18/17 05:17 Intake Total 520 ml 150 ml 15412 ml Output Total 720 ml 700 ml 65232 ml Balance -200 ml -550 ml 610 ml Intake Oral 520 ml 150 ml 3696 ml IV Total 53468 ml Tube Feeding 40 ml TPN/PPN 18131 ml Tube Irrigant 120 ml Output Urine Total 700 ml 650 ml 29913 ml Stool Total 1352 ml Gastric Drainage Total 4260 ml Drainage Total 20 ml 50 ml 3495 ml Estimated Blood Loss 120 ml # Voids 2 6 # Bowel Movements 1 Exam General: Elderly male in no acute distress. Communicating appropriately. Lungs: Clear to auscultation bilaterally with no wheezing, rales or rhonchi Cardiovascular: Regular rate/rhythm. No murmurs Abdomen: Soft, nondistended, nontender. Ostomy appears healthy. Colostomy bag recently emptied; lower abdomen with wound VAC in place. Normoactive bowel tones Extremities: Distal pulses weak but intact/equal bilaterally; no cyanosis. No edema Skin: Warm and dry without obvious ulcerations or rashes Neurological: AOx3, No focal neurologic deficit. Voice is soft, muffled with normal speech IVs and Medications Medications Reviewed: Medications were reviewed in detail Lab and Diagnostics Laboratory Tests 72 Hours Test 04/17/17 09:10 White Blood Count 13.0th/mm3 (3.8-10.1) Red Blood Count 2.83mil/mm3 (4.40-5.80) Hemoglobin 8.6g/dL (13.8-17.2) Hematocrit 27.9% (41.0-50.0) Mean Corpuscular Volume 98.6fL (81-100) Mean Corpuscular Hemoglobin 30.4pg (27.0-35.0) Mean Corpuscular Hemoglobin Concent 30.8% (32.0-37.0) Red Cell Distribution Width 17.5% (12.3-15.4) Platelet Count 723bil/L (150-400) Neutrophils (%) (Auto) 73.2% (40-74) Lymphocytes (%) (Auto) 11.7% (14-46) Monocytes (%) (Auto) 9.0% (4-12) Eosinophils (%) (Auto) 2.9% (0-5) Basophils (%) (Auto) 1.1% (0-3) Sodium Level 144mEq/L (134-144) Potassium Level 4.0mEq/L (3.5-5.2) Chloride Level 105mEq/L (97-108) Carbon Dioxide Level 22mmol/L (18-29) Blood Urea Nitrogen 11mg/dL (8-27) Creatinine 0.69mg/dL (0.76-1.27) Estimat Glomerular Filtration Rate 120mL/min (>59) Glucose Level 128mg/dL (60-99) Calcium Level 8.7mg/dL (8.5-10.1) Total Bilirubin 0.8mg/dL (0.0-1.2) Direct Bilirubin 0.3mg/dL (0.0-0.3) Aspartate Amino Transf (AST/SGOT) 65U/L (0-50) Alanine Aminotransferase (ALT/SGPT) 59U/L (0-44) Alkaline Phosphatase 1181U/L (25-160) Total Protein 5.8g/dL (6.4-8.4) Albumin 2.6g/dL (3.4-5.0) Microbiology 04/07/17 Blood Fungal Culture- Pending 04/04/17 Stool Occult Blood (ÁNGELA) - Positive 03/24/17 MRSA (PCR) - Negative 04/07/17 Urine Culture - No growth Result Diagram: 04/17/17 0910 04/17/17 0910 Microbiology 04/07/17 Blood Fungal Culture- Pending 04/04/17 Stool Occult Blood (ÁNGELA) - Positive 03/24/17 MRSA (PCR) - Negative 04/07/17 Urine Culture - No growth X-Rays, CTs and MRIs CT ABDOMEN AND PELVIS WITH CONTRAST IMPRESSION: 1. Stable low density fluid collection around the surgical drain when compared with the study dated 03/30/17. No definite rim enhancement to suggest organizing abscess. 2. Decreased pleural effusions and consolidation at the lung bases are with the prior study. Dictated by: Vanessa Torres M.D. on 04/03/2017 at 15:29 04/05/17 - X-RAY CHEST ONE VIEW, PORTABLE IMPRESSION: Persistent left basilar airspace opacity consistent with atelectasis versus aspiration or infection. Approved by: Diane Celeste MD, PhD on 04/05/2017 at 12:25 04/06/17 - X-RAY CHEST ONE VIEW, PORTABLE IMPRESSION: Persistent left basilar airspace opacity consistent with atelectasis versus aspiration or pneumonia. Approved by: Vanessa Torres M.D. on 04/06/2017 at 9:28 . Additional Diagnostics 04/05/17 - NM HIDA SCAN WITH CCK - IMPRESSION: 1. Normal filling of gallbladder. No evidence for acute cholecystitis. 2. Normal contractile response of gallbladder to CCK infusion. Approved by: Ignacia Melgar M.D. on 04/05/2017 at 17:22 US VENOUS LEG DUPLEX BILATERAL- IMPRESSION: No DVT found. Approved by: Jimbo Timmons M.D. on 04/06/2017 at 18:37 04/07/17 - US ABDOMEN, LIMITED - IMPRESSION: 1. Increased hepatic echogenicity noted likely related to fatty infiltration of the liver but other sources of hepatocellular disease cannot be excluded. Recommend clinical correlation. 2. Cholelithiasis with thickened and mildly edematous gallbladder wall which may be related to developing cholecystitis. Correlate clinically. Approved by: Vanessa Torres M.D. on 04/07/2017 at 14:43 04/07/17 - MR ABDOMEN MRCP - IMPRESSION: 1. Cholelithiasis with at least 2 stones in the gallbladder neck. No marked enlargement of the gallbladder or apparent wall thickening. No pericholecystic inflammation. 2. Intrahepatic and extrahepatic bile ducts are normal in caliber. No filling defects are demonstrated. 3. Right kidney is absent. Left kidney appears normal noting exophytic cyst laterally 4. Pathologic fracture L1 . Approved by: Brayden Denise M.D. on 04/07/2017 at 13:32 . Assessment & Plan 71 year old gentleman with a history of CAD with 2 stents, COPD, hyperlipidemia , and right-sided renal cell carcinoma (s/p nephrectomy in October 2016) currently treated outpatient with Pazopanib who presented to the CCU hypotensive and intubated status post sigmoid colectomy with colostomy for perforated diverticulitis. GI consulted for abnormal LFTs. Abnormal LFTs with persistently elevated alkaline phosphatase. -Elevated LFTs likely multifactorial and continue to improve. Patient without systemic signs of ongoing infection and extrahepatic biliary obstruction ruled out with ultrasound and MRCP. -Alkphos remains elevated but continues to trend down. AST/ALT near normal limit. May still consider liver biopsy to further evaluate isolated elevation of Alkphos pending send out labs for chronic liver disease. -Stable from GI standpoint for discharge with followup in clinic in 1-2weeks. Normocytic Anemia -Hb/Hct stable. No overt signs of bleeding -Monitor H/H, transfuse blood products as needed for Hb < 7.0 Pancreatic Cyst in the Body -8mm cyst noted -Recommend repeat CT with pancreas protocol in 3 months Additional problems managed by primary medicine team: -Perforated diverticulitis with intra-abdominal abscess. S/P sigmoid colectomy and descending colostomy -Fevers of unknown origin -Acute Encephalopathy, not present on admission, active -Acute Hypoxic Respiratory Failure due to surgery and COPD, chronic -Coronary artery disease, chronic -Renal cell carcinoma of right kidney, chronic -Diabetes mellitus, type 2, chronic -Hypertension, chronic -Hyperlipidemia, chronic . Pain Evaluation: Adequate Pain Control GI Prophylaxis: Not indicated VTE Prophylaxis: Sub-Q Heparin (Unfractionated), SCDs VTE Mechanical Devices: Intermittant Pneumatic CD Resuscitation Status: CPR: Attempt Resuscitation Attending Statement pt not seen by me today plan discussed with primary team he will follow up with me in clinic for elevated LFT's Courtney Gibson DO Apr 18, 2017 12:33 Murray Gama MD Apr 19, 2017 19:09
[2017-04-18 14:13] VITALS: BP 113/69; PULSE 100; RESP 18; O2SAT 96
--- NOTE | 2017-04-18 14:45 | NUR ---
[facility] TRANSFER : Faxed orders to [facility] and placed copy in chart, DIGITAL MEDIA DIRECTOR will arrange transport with [facility] once patient has wound vac on and is ready for transfer.
--- NOTE | 2017-04-18 14:57 | PCM.PNMED ---
Subjective Date of Service Apr 18, 2017 Subjective No overnight events. Exam Vital Signs Vital Sign - Last Date Time Temp Pulse Resp B/P Pulse Ox O2 Delivery O2 Flow Rate FiO2 04/18/17 14:13 36.8 100 18 113/69 96 Room Air Intake and Output 04/17/17 04/17/17 04/18/17 Cumulative From/Thru 15:00 23:00 07:00 03/24/17 14:24 - 04/18/17 05:17 Intake Total 520 ml 150 ml 00725 ml Output Total 720 ml 700 ml 45932 ml Balance -200 ml -550 ml 610 ml Intake Oral 520 ml 150 ml 3696 ml IV Total 18984 ml Tube Feeding 40 ml TPN/PPN 99570 ml Tube Irrigant 120 ml Output Urine Total 700 ml 650 ml 95936 ml Stool Total 1352 ml Gastric Drainage Total 4260 ml Drainage Total 20 ml 50 ml 3495 ml Estimated Blood Loss 120 ml # Voids 2 6 # Bowel Movements 1 Exam General: No acute distress, AOX2 HEENT: Normocephalic, atraumatic. External ears without defect. Pupils equal, round, and reactive to light and accommodation. Anicteric sclerae, moist conjunctivae. Cardiovascular: Regular rate and rhythm with no murmurs, rubs, or gallops appreciated Pulmonary: Mild rhonchi, no rales, no wheezes. Breathing well on room air. Abdomen: Bowel tones present. Soft, non-distended, non-tender, ostomy site- c/d/ i. Wound Vac midline abd- in place. Extremities: No clubbing, cyanosis, edema, Pulses intact. Skin: Normal temperature, turgor, and texture; no rash, ulcers, or subcutaneous nodules appreciated. Neurological: Cranial nerves grossly intact. Patient appears to have normal movement of arms and legs Psychiatric: Patient appears upbeat, normal mood and affect. IVs and Medications Medications Reviewed: Medications were reviewed in detail Lab and Diagnostics Result Diagram: 04/17/17 0910 04/17/17 0910 Microbiology 04/07/17 Blood Fungal Culture- Pending 04/04/17 Stool Occult Blood (ÁNGELA) - Positive 03/24/17 MRSA (PCR) - Negative 04/07/17 Urine Culture - No growth X-Rays, CTs and MRIs CT ABDOMEN AND PELVIS WITH CONTRAST IMPRESSION: 1. Stable low density fluid collection around the surgical drain when compared with the study dated 03/30/17. No definite rim enhancement to suggest organizing abscess. 2. Decreased pleural effusions and consolidation at the lung bases are with the prior study. Dictated by: Vanessa Torres M.D. on 04/03/2017 at 15:29 04/05/17 - X-RAY CHEST ONE VIEW, PORTABLE IMPRESSION: Persistent left basilar airspace opacity consistent with atelectasis versus aspiration or infection. Approved by: Diane Celeste MD, PhD on 04/05/2017 at 12:25 04/06/17 - X-RAY CHEST ONE VIEW, PORTABLE IMPRESSION: Persistent left basilar airspace opacity consistent with atelectasis versus aspiration or pneumonia. Approved by: Vanessa Torres M.D. on 04/06/2017 at 9:28 . Additional Diagnostics 04/05/17 - NM HIDA SCAN WITH CCK - IMPRESSION: 1. Normal filling of gallbladder. No evidence for acute cholecystitis. 2. Normal contractile response of gallbladder to CCK infusion. Approved by: Ignacia Melgar M.D. on 04/05/2017 at 17:22 US VENOUS LEG DUPLEX BILATERAL- IMPRESSION: No DVT found. Approved by: Jimbo Timmons M.D. on 04/06/2017 at 18:37 04/07/17 - US ABDOMEN, LIMITED - IMPRESSION: 1. Increased hepatic echogenicity noted likely related to fatty infiltration of the liver but other sources of hepatocellular disease cannot be excluded. Recommend clinical correlation. 2. Cholelithiasis with thickened and mildly edematous gallbladder wall which may be related to developing cholecystitis. Correlate clinically. Approved by: Vanessa Torres M.D. on 04/07/2017 at 14:43 04/07/17 - MR ABDOMEN MRCP - IMPRESSION: 1. Cholelithiasis with at least 2 stones in the gallbladder neck. No marked enlargement of the gallbladder or apparent wall thickening. No pericholecystic inflammation. 2. Intrahepatic and extrahepatic bile ducts are normal in caliber. No filling defects are demonstrated. 3. Right kidney is absent. Left kidney appears normal noting exophytic cyst laterally 4. Pathologic fracture L1 . Approved by: Brayden Denise M.D. on 04/07/2017 at 13:32 . Assessment & Plan 71 year old gentleman with a history of CAD with 2 stents, COPD, hyperlipidemia , and right-sided renal cell carcinoma (s/p nephrectomy in October 2016) currently treated with Pazopanib presenting with hypotension and found to have perforated sigmoid diverticulitis with feculent peritonitis status post sigmoid colectomy with descending colostomy. Perforated diverticulitis with intra-abdominal abscess, poa, active- S/P sigmoid colectomy and descending colostomy -Ostomy output appropriate. -Repeat CT abdomen 04/03 shows resolving pleural effusions, mild abdominal fluid with no evidence of abscess. -Surgery, Dr. Sagastume -Discharge instructions- - Wound VAC will be continued to his midline wound, Wound VAC to be changed every 48-72 hours. - Follow up at Wound Center weekly once at [facility] for Wound and Colostomy care. Elevated liver function markers including alkaline phosphatase, POA, acute. Active Patient has had high normal Alk Phos since admission - Hepatic enzymes slightly elevated in parallel - Ultrasound of the abdomen shows a prominent gallbladder (4.2 mm) Developing cholecystitis cannot be excluded. - GGT 520 consistent with cholecystitis and/or common bile duct obstruction - HIDA scan obtained on 04/05 shows no evidence of cholecystitis. Results as above - MRCP shows no evidence of cholecystitis or choledocholithiasis Results as above - Hold Simvastatin until LFT's normalize. - GI 04/14- Recs. Continue to follow liver function labs. May need liver biopsy eventually to evaluate isolated markedly elevated ALP. CT pancreas protocol in 3 months. - Follow up with Gastroenterology, Dr. Gama in 1 week. Protein calorie malnutrition, acute, active - Patient tolerating stim diet as of 04/06, speech therapy to evaluate the patient again and advance diet as appropriate. - Olanzapine and dronabinol added to stimulate patient diet - RELAY OPERATOR rec MBS done 04/14 showed Mild vallecular pooling otherwise no laryngeal penetration or tracheobronchial aspiration. - RELAY OPERATOR recs [place]/ Pureed 1:1 feeding, Acute Encephalopathy, not present on admission, active - As the patient continues to be more alert and vocal post extubation, Level of encephalopathy tends to wax and wane - Multiple possibilities previously discussed, however no interventions planned at this time. - Continue to monitor - Continue Lactulose 20 gm daily with goal of daily bowel movements. Normocytic anemia, present on admission, stable. - Hemoglobin stable in low 7's. - Stools found to be guaiac positive, however no obvious GI loss, and no other sources of bleeding noted - Consider transfusion if patient remains less than 7.0 - Patient infused with iron sodium gluconate on 04/08. Fevers of unknown origin, not present on admission, resolved - Temperatures within normal limits for the last several days. - None noted since 04/07 consistent with possible side effect of micafungin as this was discontinued - Other possibilities discussed previously - ID was following, meropenem discontinued. No current suspicion of infection. Hypertension, chronic. Present on admission. Stable -Patient remains tachycardic with increasing blood pressures - Held Lisinopril 40mg PO daily, consider restarting if blood pressures allowing - Changed Metoprolol succinate to Tartrate 50mg twice daily. Can titrate up for sinus tachycardia. Acute Hypoxic Respiratory Failure due to surgery and COPD, chronic. Present on admission. Resolved -Pt intubated and sedated in the CCU. Extubated on 03/31 -Patient currently breathing well on room air. Coronary artery disease, chronic. Present on admission. stable. -Pt with prior [place] and two stents. Presented with mild chest pain with negative cardiac enzymes and no acute ischemic changes noted on ECG. -Continue home simvastatin once LFT's normalize. Follow up with GI as above. -Resumed Aspirin. Renal cell carcinoma of right kidney, chronic. Presumed stable. -Pt is s/p nephrectomy in October 2016, previously treated with Pazopanib and dexamethasone. -Per recommendations of oncology Pazopanib and dexamethasone may be held for 4- 6 weeks while patient stabilizes. -CT abd/pelvis showed a renal cyst as above. -Resumed oral medications. -Follow up with Oncology as outpatient in 1-2 weeks to deterimine when to resume Pazopanib and dexamethasone. Diabetes mellitus, type 2, chronic. Present on admission. Presumed stable. -Current outpatient therapy is Metformin 500mg PO BID -Continue tight glucose control. Dispo- Discharge to [facility] 1-2 days. Will need follow by RELAY OPERATOR at [facility]. PT recommends transport via wheelchair. Olanzapine and dronabinol added to stimulate patient diet. Continue Lactulose 20 gm daily with goal of daily bowel movements. Held Lisinopri, can resume if blood pressure elevated. Hold Simvastatin until LFT's normalize. Changed Metoprolol succinate to Tartrate 50mg twice daily. Can titrate up for sinus tachycardia. Diet- RELAY OPERATOR recommends [place]/ Pureed 1:1 feeding. Will need follow by RELAY OPERATOR at [facility]. Wound VAC will be continued to his midline wound, Wound VAC to be changed every 48-72 hours. Follow up at Wound Center weekly once at [facility] for Wound and Colostomy care. Check Liver Function in 3-4 days, ALP may still be elevated but make sure it's at least stable. Follow up with Gastroenterology, Dr. Gama in 1 week. May need liver biopsy to evaluate isolated markedly elevated ALP. CT pancreas protocol in 3 months. GI Prophylaxis: Not indicated VTE Prophylaxis: Sub-Q Heparin (Unfractionated), SCDs VTE Mechanical Devices: Intermittant Pneumatic CD Resuscitation Status: CPR: Attempt Resuscitation Walker Barnhart MD Apr 18, 2017 14:57
--- NOTE | 2017-04-18 16:06 | NUR ---
NUTRITION FOLLOW UP: ASSESS: 71 YO M admitted with perforated diverticulitis, pneumoperitoneum with peritonitis, s/p exploratory laparotomy with sigmoid/descending colon resection, Diallo's and end-descending colostomy. Pt extubated 03/31. TPN was tapered off 04/06. Pt is s/p MBS and on a pureed, nectar thick. Pt has had poor po intake now x 12 days. Appetite stimulant added 04/09. Pt reports to not liking the food but is trying to eat more in order to gain strength. PMHx: Renal cell cancer with current chemotherapy, immunosuppression, R. nephrectomy, CAD, COPD, HTN, dyslipidemia, type 2 diabetes, hiatal hernia, GI bleed. DIET: Pureed, nectar thick liquids. Magic cup and Mighty shakes all trays. PO intake bites-25% of meals. LABS: Reviewed. Glu 128, AST 65, ALT 59, alk phos 1181, Alb 2.6. MEDICATIONS: Reviewed. Marinol, Lactulose. GI: 50 mL Stool via colostomy (04/18) SKIN: Electric Power Superintendent following. Abdominal wound w/ wound vac. ANTHROPOMETRICS: 84.0 kg. Admit wt: 88 kg, IBW: 83.64 kg. ESTIMATED NEEDS: Healing, GI Calories: 0394-2868 kcal/day (25-30 kcal/kg BW) Protein: 105-135 kcal/day (1.2-1.5 g/kg BW) Fluid: Approx. 2700 mL (30 mL/kg BW) NUTRITION DIAGNOSIS: 1) Inadequate oral intake related to altered GI function, as evidenced by colectomy/colostomy, Pureed diet and po intake of bites-25% x 12 days -PERSISTS. 2) Chew/swallow difficulty related to AMS/weakness as evidenced by need for stimulation diet per ST - IMPROVING, diet advance to pureed. INTERVENTION: 1) Continue to advance diet per ST. 2.) Continue to send Magic Cup and mighty shakes on all trays to maximize kcal/pro intake. 3.) Strongly recommend nutrition support as pt has been without adequate nutrition now x 12 days. Recommend Vital 1.5 initiated at 10 ml/hr and advanced by 10ml every 6 hr to goal rate of 75 ml/hr to provide 2587 kcal and 115 g protein (100% estimated needs). If no IVF, flush 95 ml q 2 hr. MONITOR/EVALUATE: PO intake, diet advance/tolerance, weight, labs, GI/nutrition status. Follow per high nutrition risk guidelines.
--- NOTE | 2017-04-18 19:46 | NUR ---
Turn. Position Change Refusal Patient refused to turns or to attempt to get out of bed this shift, despite repeated attempts with education by staff. Patient denies pain, nausea or other difficulty. Care is ongoing.
[2017-04-18 20:37] VITALS: BP 132/71; PULSE 111; RESP 16; O2SAT 94
[2017-04-19] MEDS: Heparin 5,000 Unit/mL Inj SUBQ SCH ×2 (00:56→09:22)
[2017-04-19 04:39] VITALS: BP 116/72; PULSE 112; RESP 18; O2SAT 96
--- NOTE | 2017-04-19 06:08 | NUR ---
Mentation / I&O Pt continues to improve mentation, cooperative with care except will not consider getting OOB this evening. Denies pain. Low urine output, low PO intake. Hourly rounding ongoing.
[2017-04-19 07:20] VITALS: PULSE 112; RESP 20; O2SAT 97
[2017-04-19 08:48] VITALS: BP 121/78; PULSE 112; RESP 16; O2SAT 96
--- NOTE | 2017-04-19 09:13 | PROG NOTE ---
[address] [address] PROGRESS NOTE PATIENT: JOSAFAT SOLIS : 1945 MR#: [id number] ADMIT: 03/24/2017 JOB ID: [id number] DATE: 04/19/2017 SUBJECTIVE: Leodan is seen in followup. He was seen by wound therapy yesterday and his wound VAC was changed. The diameter of the wound is improved with two small pockets at the level of the fascia without evidence of fascial dehiscence. The colostomy shows retraction, which is stable mostly on the medial side, but the mucosa is red and firm. He is not complaining of any abdominal pain or nausea. His main complaint remains that the food is unpalatable. PHYSICAL EXAMINATION: Temperature 37.1, pulse 112, blood pressure 116/72, saturation 96% on room air. General: He is resting in bed in no acute distress. Abdomen is soft, nontender, nondistended. Wound VAC is intact. Colostomy has no output overnight. ASSESSMENT AND PLAN: A 71-year-old man with perforated sigmoid diverticulitis status post Diallo's procedure with prolonged metabolic encephalopathy versus delirium. From a surgical standpoint he continues to do fine. I will continue to see him periodically while he is in the hospital, but overall I support transfer to a [place] [facility] facility at any time. Wound VAC should be continued for now.
[2017-04-19] MEDS: Lactulose 20 Gm/30 mL 30 mL Syrup PO SCH (09:23)
--- NOTE | 2017-04-19 11:30 | PCM.DC.MED ---
Discharge Summary Date of Service Apr 19, 2017 Dates of Hospitalization Date of Hospital Admission Mar 24, 2017 at 17:07 Date of Discharge: Apr 19, 2017 Providers: Admitting Physician: Aaron Bailey MD Primary Care Physician: Vik Sagastume MD Attending Physician: Augustin Tejeda MD Diagnosis at Time of Discharge Diagnosis at Time of Discharge Perforated diverticulitis with intra-abdominal abscess, poa, active- S/P sigmoid colectomy and descending colostomy Elevated liver function markers including alkaline phosphatase, POA, acute. Active Protein calorie malnutrition, acute, active Acute Encephalopathy, not present on admission, active Normocytic anemia, present on admission, stable. Fevers of unknown origin, not present on admission, resolved Hypertension, chronic. Present on admission. Stable. Acute Hypoxic Respiratory Failure due to surgery and COPD, chronic. Present on admission. Resolved Coronary artery disease, chronic. Present on admission. stable. Renal cell carcinoma of right kidney, chronic. Presumed stable. Diabetes mellitus, type 2, chronic. Present on admission. Presumed stable. Consultations 1. Surgery Procedures XRay, CTs & MRIs CT ABDOMEN AND PELVIS WITH CONTRAST IMPRESSION: 1. Stable low density fluid collection around the surgical drain when compared with the study dated 03/30/17. No definite rim enhancement to suggest organizing abscess. 2. Decreased pleural effusions and consolidation at the lung bases are with the prior study. Dictated by: Vanessa Torres M.D. on 04/03/2017 at 15:29 04/05/17 - X-RAY CHEST ONE VIEW, PORTABLE IMPRESSION: Persistent left basilar airspace opacity consistent with atelectasis versus aspiration or infection. Approved by: Diane Celeste MD, PhD on 04/05/2017 at 12:25 04/06/17 - X-RAY CHEST ONE VIEW, PORTABLE IMPRESSION: Persistent left basilar airspace opacity consistent with atelectasis versus aspiration or pneumonia. Approved by: Vanessa Torres M.D. on 04/06/2017 at 9:28 . Other Diagnostics 04/05/17 - NM HIDA SCAN WITH CCK - IMPRESSION: 1. Normal filling of gallbladder. No evidence for acute cholecystitis. 2. Normal contractile response of gallbladder to CCK infusion. Approved by: Ignacia Melgar M.D. on 04/05/2017 at 17:22 VENOUS LEG DUPLEX BILATERAL- IMPRESSION: No DVT found. Approved by: Jimbo Timmons M.D. on 04/06/2017 at 18:37 04/07/17 - US ABDOMEN, LIMITED - IMPRESSION: 1. Increased hepatic echogenicity noted likely related to fatty infiltration of the liver but other sources of hepatocellular disease cannot be excluded. Recommend clinical correlation. 2. Cholelithiasis with thickened and mildly edematous gallbladder wall which may be related to developing cholecystitis. Correlate clinically. Approved by: Vanessa Torres M.D. on 04/07/2017 at 14:43 04/07/17 - MR ABDOMEN MRCP - IMPRESSION: 1. Cholelithiasis with at least 2 stones in the gallbladder neck. No marked enlargement of the gallbladder or apparent wall thickening. No pericholecystic inflammation. 2. Intrahepatic and extrahepatic bile ducts are normal in caliber. No filling defects are demonstrated. 3. Right kidney is absent. Left kidney appears normal noting exophytic cyst laterally 4. Pathologic fracture L1 . Approved by: Brayden Denise M.D. on 04/07/2017 at 13:32 . Brief History Per hpi on 03/24/[address] Gipson Mr. Humberto Saldivar is a 71 year old gentleman with a history of CAD with 2 stents, COPD, hyperlipidemia, and right-sided renal cell carcinoma (s/p nephrectomy in October 2016) presenting to the CCU hypotensive and intubated status post sigmoid colectomy and descending colostomy for perforated sigmoid diverticulitis with abscess. History obtained via chart review as patient is sedated and intubated at time of assessment. Patient presented to the ED via EMS earlier today with the complaint of syncope and generalized weakness. He reported left-sided abdominal pain as well as chest pain which he described as similar to what he experienced with prior NC. Additional symptoms included lack of appetite, subjective chills without fevers, mild shortness of breath, constipation and blood in his stool. On arrival, paramedics reportedly found the patient to be hypotensive with a systolic BP of 60. In the emergency department, he was intermittently hypotensive which improved with IV fluids. He was given IV meropenem prior to surgery and received a total of 2.5 liters fluids in the operating room. Estimated blood loss was 100ml, however after aggressive IV fluid resuscitation he remained hypotensive, requiring pressor support. At presentation to the emergency department: ECG showed sinus tachycardia with rate of 114, an old inferior infarct and non-specific ST-T wave changes; CXR was negative for acute pulmonary process and a CT chest showed a 4mm ground- glass nodule in the right middle lobe but was negative for pulmonary embolus. CT abd/pelvis showed perforated acute diverticulitis with intra-abdominal abscess, pneumoperitoneum, a cystic lesion within the body of the pancreas, cholelithiasis, and a severe wedge compression deformity at L1. On arrival to the CCU, he was hemodynamically stable maintaining a systolic blood pressure in the 130s-140s. However, his blood pressure continued to drop and norepinephrine was started for persistent hypotension. Preoperative labs in the emergency department were significant for a negative troponin, normal white blood cell count, elevated transaminases, and an elevated D-dimer (1.70). Hospital Course Patient's hospital course was detailed in the discharge summary by Dr. Tejeda on 04/16/17 earlier and as noted below: Perforated diverticulitis with intra-abdominal abscess, poa, active- S/P sigmoid colectomy and descending colostomy -Ostomy output appropriate. -Repeat CT abdomen 04/03 shows resolving pleural effusions, mild abdominal fluid with no evidence of abscess. -Surgery, Dr. Sagastume -Discharge instructions- - Wound VAC will be continued to his midline wound, Wound VAC to be changed every 48-72 hours. - Follow up at Wound Center weekly once at [facility] for Wound and Colostomy care. Elevated liver function markers including alkaline phosphatase, POA, acute. Active Patient has had high normal Alk Phos since admission - Hepatic enzymes slightly elevated in parallel - Ultrasound of the abdomen shows a prominent gallbladder (4.2 mm) Developing cholecystitis cannot be excluded. - GGT 520 consistent with cholecystitis and/or common bile duct obstruction - HIDA scan obtained on 04/05 shows no evidence of cholecystitis. Results as above - MRCP shows no evidence of cholecystitis or choledocholithiasis Results as above - Hold Simvastatin until LFT's normalize. - GI 04/14- Recs. Continue to follow liver function labs. May need liver biopsy eventually to evaluate isolated markedly elevated ALP. CT pancreas protocol in 3 months. - Follow up with Gastroenterology, Dr. Gama in 1 week. Protein calorie malnutrition, acute, active - Patient tolerating stim diet as of 04/06, speech therapy to evaluate the patient again and advance diet as appropriate. - Olanzapine and dronabinol added to stimulate patient diet - MONTESSORI PROGRAM DIRECTOR rec MBS done 04/14 showed Mild vallecular pooling otherwise no laryngeal penetration or tracheobronchial aspiration. - MONTESSORI PROGRAM DIRECTOR recs [place]/ Pureed 1:1 feeding, Acute Encephalopathy, not present on admission, active - As the patient continues to be more alert and vocal post extubation, Level of encephalopathy tends to wax and wane - Multiple possibilities previously discussed, however no interventions planned at this time. - Continue to monitor - Continue Lactulose 20 gm daily with goal of daily bowel movements. Normocytic anemia, present on admission, stable. - Hemoglobin stable in low 7's. - Stools found to be guaiac positive, however no obvious GI loss, and no other sources of bleeding noted - Consider transfusion if patient remains less than 7.0 - Patient infused with iron sodium gluconate on 04/08. Fevers of unknown origin, not present on admission, resolved - Temperatures within normal limits for the last several days. - None noted since 04/07 consistent with possible side effect of micafungin as this was discontinued - Other possibilities discussed previously - ID was following, meropenem discontinued. No current suspicion of infection. Hypertension, chronic. Present on admission. Stable -Patient remains tachycardic with increasing blood pressures - Held Lisinopril 40mg PO daily, consider restarting if blood pressures allowing - Changed Metoprolol succinate to Tartrate 50mg twice daily. Can titrate up for sinus tachycardia. Acute Hypoxic Respiratory Failure due to surgery and COPD, chronic. Present on admission. Resolved -Pt intubated and sedated in the CCU. Extubated on 03/31 -Patient currently breathing well on room air. Coronary artery disease, chronic. Present on admission. stable. -Pt with prior NC and two stents. Presented with mild chest pain with negative cardiac enzymes and no acute ischemic changes noted on ECG. -Continue home simvastatin once LFT's normalize. Follow up with GI as above. -Resumed Aspirin. Renal cell carcinoma of right kidney, chronic. Presumed stable. -Pt is s/p nephrectomy in October 2016, previously treated with Pazopanib and dexamethasone. -Per recommendations of oncology Pazopanib and dexamethasone may be held for 4- 6 weeks while patient stabilizes. -CT abd/pelvis showed a renal cyst as above. -Resumed oral medications. -Follow up with Oncology as outpatient in 1-2 weeks to deterimine when to resume Pazopanib and dexamethasone. Diabetes mellitus, type 2, chronic. Present on admission. Presumed stable. -Current outpatient therapy is Metformin 500mg PO BID -Continue tight glucose control. His discharge was delayed till 04/19/17 apparently due to some [facility]. Hospital course otherwise remained unremarkable since the discharge summary by Dr. Tejeda on 04/16/17 (noted above) Exam Vital Signs (Last) Date Time Temp Pulse Resp B/P Pulse Ox O2 Delivery O2 Flow Rate FiO2 04/19/17 08:48 37.1 112 16 121/78 96 Room Air Exam Lungs: CTA bilat. Abdomen with ostomy in place and intact. wound vac is also in place CV: RRR Test 03/24/17 14:10 03/26/17 11:40 04/01/17 04:30 04/04/17 11:10 Total Creatine Kinase 64U/L (21-232) Creatine Kinase MB 1.2ng/mL (0.0-10.4) Creatine Kinase MB % % (0.0-5.0) Pro-B-Type Natriuretic Peptide 168.1pg/mL (0-376) Fibrinogen 577mg/dL (157-380) D-Dimer 1.91mg/L FEU (<0.50) Troponin T 0.010ug/L (0.0-0.011) Gamma Glutamyl Transpeptidase 519IU/L (0-65) Test 04/06/17 03:20 04/07/17 04:15 04/07/17 06:25 04/07/17 19:40 Thyroid Stimulating Hormone (TSH) 2.430uIU/mL (0.450-4.500) Lactic Acid Level 0.9mmol/L (0.4-2.0) Lipase 34U/L (13-60) Procalcitonin 0.79ng/mL (0.00-0.08) Urine Color Yellow (YELLOW) Urine Appearance Hazy (CLEAR,HAZY) Urine pH 8.0 (5.0-8.0) Urine Specific [place] 1.020 (1.003-1.035) Urine Protein 100mg/dL (NEG,TRACE) Urine Glucose (UA) Negativemg/dL (NEGATIVE) Urine Ketones Tracemg/dL (NEGATIVE) Urine Occult Blood Moderate (NEGATIVE) Urine Nitrite Negative (NEGATIVE) Urine Bilirubin Negative (NEGATIVE) Urine Urobilinogen Normalmg/dL (NORMAL) Urine Leukocyte Esterase Negative (NEGATIVE) Urine RBC 3-10/hpf (0-2) Urine WBC 6-10/hpf (0-5) Urine Epithelial Cells Occasional/hpf (NONE-MOD) Urine Crystals None seen (NONE SEEN) Urine Bacteria Few/hpf (NONE-FEW) Urine Hyaline Casts None/lpf (NONE) Urine Granular Casts None seen (NONE SEEN) Urine Waxy Casts None seen (NONE SEEN) Urine Red Blood Cell Casts None seen (NONE SEEN) Urine White Blood Cell Casts None seen (NONE SEEN) Urine Mucus Present (None Seen) Urine Trichomonas None seen (NONE SEEN) Urine Yeast None (NONE SEEN) Urinalysis Comment None Urine Culture Reflexed Indicated Ammonia 38ug/dL (18-53) Test 04/08/17 04:30 04/09/17 06:45 04/10/17 04:45 04/11/17 17:20 Reticulocyte Count,Calculated 2.9% (0.6-2.6) Iron Level 28ug/dL (35-150) Total Iron Binding Capacity 166ug/dL (250-450) Percent Iron Saturation 17%sat (15-50) Unsaturated Iron Binding 137.6ug/dL Ferritin 2204ng/mL (30-400) Vitamin B12 Level 981pg/mL (211-946) Folate 13.9ng/mL (>3.0) Triglycerides Level 285mg/dL (0-149) Band Neutrophils % 2% (1-5) Prothrombin Time 13.6sec (8.1-12.5) Prothromb Time International Ratio 1.26ratio Hold Purple Top Tube Received (Received) Hold [place] Top Tube Received (Received) Test 04/15/17 08:10 04/17/17 09:10 Phosphorus Level 2.4mg/dL (2.5-4.9) Magnesium Level 1.9mg/dL (1.6-2.6) White Blood Count 13.0th/mm3 (3.8-10.1) Red Blood Count 2.83mil/mm3 (4.40-5.80) Hemoglobin 8.6g/dL (13.8-17.2) Hematocrit 27.9% (41.0-50.0) Mean Corpuscular Volume 98.6fL (81-100) Mean Corpuscular Hemoglobin 30.4pg (27.0-35.0) Mean Corpuscular Hemoglobin Concent 30.8% (32.0-37.0) Red Cell Distribution Width 17.5% (12.3-15.4) Platelet Count 723bil/L (150-400) Neutrophils (%) (Auto) 73.2% (40-74) Lymphocytes (%) (Auto) 11.7% (14-46) Monocytes (%) (Auto) 9.0% (4-12) Eosinophils (%) (Auto) 2.9% (0-5) Basophils (%) (Auto) 1.1% (0-3) Sodium Level 144mEq/L (134-144) Potassium Level 4.0mEq/L (3.5-5.2) Chloride Level 105mEq/L (97-108) Carbon Dioxide Level 22mmol/L (18-29) Blood Urea Nitrogen 11mg/dL (8-27) Creatinine 0.69mg/dL (0.76-1.27) Estimat Glomerular Filtration Rate 120mL/min (>59) Glucose Level 128mg/dL (60-99) Calcium Level 8.7mg/dL (8.5-10.1) Total Bilirubin 0.8mg/dL (0.0-1.2) Direct Bilirubin 0.3mg/dL (0.0-0.3) Aspartate Amino Transf (AST/SGOT) 65U/L (0-50) Alanine Aminotransferase (ALT/SGPT) 59U/L (0-44) Alkaline Phosphatase 1181U/L (25-160) Total Protein 5.8g/dL (6.4-8.4) Albumin 2.6g/dL (3.4-5.0) Microbiology Results 04/07/17 Blood Fungal Culture- Pending 04/04/17 Stool Occult Blood ([place]NGELA) - Positive 03/24/17 MRSA (PCR) - Negative 04/07/17 Urine Culture - No growth Discharge Medications Discharge Medications Aspirin (Aspirin) 81 Mg Tablet 81 MG PO DAILY (Reported) Docusate Sodium (Docusate Sodium) 250 Mg Capsule 250 MG PO HS (Reported) Dronabinol (Dronabinol) 2.5 Mg Capsule 2.5 MG PO DAILY Prescribed by: AUGUSTIN TEJEDA MD Lactulose (Lactulose) 20 Gm/30 Ml Solution 20 GM PO DAILY Prescribed by: AUGUSTIN TEJEDA MD Metformin (Metformin) 500 Mg Tablet 500 MG PO BID (Reported) Metoprolol Tartrate (Metoprolol Tartrate) 50 Mg Tablet 50 MG PO BID Prescribed by: AUGUSTIN TEJEDA MD Olanzapine (Olanzapine) 5 Mg Tablet 5 MG PO DAILY Prescribed by: AUGUSTIN TEJEDA MD As needed Nitroglycerin SL (Nitrostat) 0.4 Mg Tab.subl 0.4 MG SL Q5MIN PRN PRN For Chest Pain (Reported) Additional med instructions Olanzapine and dronabinol added to stimulate patient diet. Continue Lactulose 20 gm daily with goal of daily bowel movements. Held Lisinopri, can resume if blood pressure elevated. Hold Simvastatin until LFT's normalize. Changed Metoprolol succinate to Tartrate 50mg twice daily. Can titrate up for sinus tachycardia. Followup Plan Disposition: [facility] SNF Follow-up plan Changed Metoprolol succinate to Tartrate 50mg twice daily. Can titrate up for sinus tachycardia. Diet- MONTESSORI PROGRAM DIRECTOR recommends [place]/ Pureed 1:1 feeding. Will need follow by MONTESSORI PROGRAM DIRECTOR at [facility]. Wound VAC will be continued to his midline wound, Wound VAC to be changed every 48-72 hours. Discharge Diet: Other (MONTESSORI PROGRAM DIRECTOR recommends [place]/ Pureed 1:1 feeding) Discharge Activity: Other (Daily PT) Patient Instructions Follow up at Wound Center weekly once at [facility] for Wound and Colostomy care. Follow up with Gastroenterology, Dr. Gama in 1 week. May need liver biopsy to evaluate isolated markedly elevated ALP. CT pancreas protocol in 3 months. Provider: [facility] Follow-up in: 1 week Time spent 35 min copies to: Vik Sagastume MD, Masoud Apr 19, 2017 11:30
--- NOTE | 2017-04-19 13:23 | NUR ---
CORRECTION TRANSFER FOLLOW UP: Scheduled BLS transport via [facility] for 1430 slate picker. PCS form completed and notified RN and FACILITY OPERATIONS MANAGER.
--- NOTE | 2017-04-19 13:39 | NUR ---
Social Work- Discharge Data: EMR reviewed. Pt is on day 26 of hospitalization. Pt discussed in multidisciplinary rounds. Pt to discharge to [facility] today. Jhonatan, admissions at [facility], who is agreeable to accepting patient today. Pt's wound VAC has arrived at [facility]. Molder Apprentice is updated and agreeable to plan. [facility] to attach their wound VAC upon pt's arrival. [facility] created packet and faxed orders yesterday. Discussed pt's transportation needs with MD, S order received. PCS form and BLS transportation complete. Transport scheduled for 1430. Spoke with pt's at bedside regarding discharge plan, pt's is agreeable to discharge. Informed that BLS transportation is not guaranteed to be covered by insurance, agreeable. RN, UC, pt/family, and [facility] all updated and agreeable to plan. No additional D/C needs. Assessment: Pt for whom SNF is medically necessary Plan: Pt to d/c to [facility] via BLS at 1430. RN, UC, pt/family, and [facility] all updated and agreeable to plan. No additional D/C needs. Zohra Riley, SENIOR PROCESS ENGINEER
--- NOTE | 2017-04-19 15:17 | NUR ---
Discharge note- Medicated patient for complaint of discomfort around wound vac site with Tylenol, which patient stated "worked" for pain. Discharged via stretcher and ambulance to [facility]. Family notified. Report called to receiving nurse.
== END 2017-04-19 14:50 | DRG 329 ==
LOC: SED 14:15 → OSC 17:07 → CCU 21:17 → PCC 04-05 10:55 → UNDODISIN 04-12 13:14 → OSC 04-12 17:29
PROVIDERS: ADMIT Hospitalist; ATTEND Hospitalist
PROC: 0D1M0Z4 Bypass Descending Colon to Cutaneous, Open Approach (ICD-10-PCS; 2017-03-24)
PROC: 5A1955Z Respiratory Ventilation, Greater than 96 Consecutive Hours (ICD-10-PCS; 2017-03-24)
PROC: 4A033R1 Measurement of Arterial Saturation, Peripheral, Percutaneous Approach (ICD-10-PCS; 2017-03-24)
PROC: 05H433Z Insertion of Infusion Device into Left Innominate Vein, Percutaneous Approach (ICD-10-PCS; 2017-03-24)
PROC: 0DTN0ZZ Resection of Sigmoid Colon, Open Approach (ICD-10-PCS; principal; 2017-03-24 18:30)
PROC: 3E0436Z Introduction of Nutritional Substance into Central Vein, Percutaneous Approach (ICD-10-PCS; 2017-03-27)
DX: K57.20 Diverticulitis of large intestine with perforation and abscess without bleeding (principal); J96.01 Acute respiratory failure with hypoxia; J95.821 Acute postprocedural respiratory failure; A41.9 Sepsis, unspecified organism; R65.21 Severe sepsis with septic shock; G93.41 Metabolic encephalopathy; E87.2 Acidosis; E46 Unspecified protein-calorie malnutrition; C64.1 Malignant neoplasm of right kidney, except renal pelvis; E87.3 Alkalosis; K86.2 Cyst of pancreas; I25.2 Old myocardial infarction; Z95.5 Presence of coronary angioplasty implant and graft; J44.9 Chronic obstructive pulmonary disease, unspecified; E78.5 Hyperlipidemia, unspecified; Z90.5 Acquired absence of kidney; I10 Essential (primary) hypertension; I25.10 Atherosclerotic heart disease of native coronary artery without angina pectoris; Z87.891 Personal history of nicotine dependence; E11.9 Type 2 diabetes mellitus without complications; D69.6 Thrombocytopenia, unspecified; R50.9 Fever, unspecified; D64.9 Anemia, unspecified; R94.5 Abnormal results of liver function studies; K75.89 Other specified inflammatory liver diseases

== ENCOUNTER 2017-04-21 10:17 | Inpatient (IN) | payer MEDICARE, OTHER ==
[~2017-04-21] VITALS: Ht 188 cm; Wt 90.0 kg
[~2017-04-21 10:17] MED LIST changes: -ASPI-628 PO; +ASPI-973 PO; -ATRV10T PO; -Aspirin PO; -CLOP75TA3 PO; +DOCU250C2 PO; +DRON2.5C10 PO; -Hydrocodone/Acetaminophen PO; +LACT10SO60 PO; -LISI-567 PO; -LISI-611 PO; +METF500T4 PO; -METO-386 PO; -METO25TA3 PO; +METO50TA3 PO; -MULT-1073 PO; +OLAN5TAB PO; -SIMV20TA4 PO
[2017-04-21 10:44] VITALS: BP 93/67; PULSE 126; RESP 34; O2SAT 97
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
[2017-04-21] MEDS ORDERED: 0.9% Sodium Chloride 1,000 ML IV ONE ×2 (10:52→13:50)
[2017-04-21] MEDS ORDERED: Sodium Chloride LOK Flush 10 mL Syringe IVFLUSH PRN ×2 (12:00)
--- NOTE | 2017-04-21 12:08 | DRSVH ---
PROCEDURE: X-RAY CHEST ONE VIEW, PORTABLE ([id number]) INDICATIONS: 71 year-old male with syncope. TECHNIQUE: One view of the chest was acquired. COMPARISON: [facility], CR, XR CHEST 1VW (PORTABLE), 04/17/2017, 7:54. [facility], CR, XR CHEST 1VW (PORTABLE), 04/06/2017, 3:51. [facility], CR, XR CHEST 1VW (EMILY BLE), 04/05/2017, 5:32. FINDINGS: Surgical changes and devices: Right PICC has been withdrawn. Lungs and pleura: No pleural effusions or pneumothorax. Lungs are clear. Mediastinum: Mediastinal contours appear normal. Heart size is normal. Bones and chest wall: No suspicious bony lesions. Overlying soft tissues appear unremarkable. IMPRESSION: No acute cardiopulmonary disease. Dictated by: Darius Molina M.D. on 04/21/2017 at 12:06 Approved by: Darius Molina M.D. on 04/21/2017 at 12:06
[2017-04-21 12:26] LABS: Mean Corpuscular Hemoglobin 29.6 pg (27.0-35.0); Mean Corpuscular Volume 98.7 fL (81-100); Platelet Count 548 bil/L (150-400)
[2017-04-21 12:40] LABS: D-Dimer 3.65 mg/L FEU (<0.50); INR 1.13 ratio
[2017-04-21 12:56] LABS: BASOPHILS % (AUTO) 0 % (0-3); EOSINOPHILS % (AUTO) 0 % (0-5); MONOCYTES % (AUTO) 4 % (4-12); NEUTROPHILS % (AUTO) 64 % (40-74)
[2017-04-21 13:10] LABS: Magnesium 1.8 mg/dL (1.6-2.6)
[2017-04-21 13:16] LABS: TROPONIN T 0.045 ug/L (0.0-0.011)
[2017-04-21] MEDS ORDERED: 0.9% Sodium Chloride 1,000 ML IV SCH ×3 (13:50→14:05)
[2017-04-21] MEDS ORDERED: Piperacillin-Tazo 3.375 Gm Inj 3.375 GM in Dextrose 5% Minibag Plus 50 ML IV ONE (13:50)
[2017-04-21] MEDS ORDERED: 0.9% Sodium Chloride 500 ML IV ONE (13:50)
[2017-04-21] MEDS ORDERED: ACET325C PO (13:54)
[2017-04-21] MEDS ORDERED: Vancomycin Dose per Pharmacist XX ONE (13:58)
[2017-04-21] MEDS ORDERED: Vancomycin Inj 1,750 MG in 0.9% Sodium Chloride 500 ML IV ONE (14:00)
--- NOTE | 2017-04-21 14:01 | DRSVH ---
PROCEDURE: X-RAY PICC LINE PLACEMENT BY NURSE ([id number]) INDICATIONS: 71 year-old male with PICC placement. COMPARISON: None. FINDINGS: PICC was placed by the intravenous therapy team from the left side. Fluoroscopic spot zack m demonstrates tip of PICC in the lower superior vena cava. IMPRESSION: Tip of PICC lies within the lower superior vena cava. Dictated by: Darius Molina M.D. on 04/21/2017 at 13:58 Approved by: Darius Molina M.D. on 04/21/2017 at 13:59
[2017-04-21] MEDS ORDERED: Alum-Mag Hydrox-Simeth 30 mL Suspension PO PRN (14:05)
[2017-04-21] MEDS ORDERED: Ondansetron 2 mg/mL 2 mL Inj IVPUSH PRN ×2 (14:05→15:25)
[2017-04-21] MEDS ORDERED: Polyethylene Glycol (PEG) 17 Gm Powder PO PRN (14:05)
--- NOTE | 2017-04-21 14:08 | ABG ---
DateTimeAnalyzed 14:02:00 -_ pH ____7.474 - 7.350 7.450 pCO2 ___27.7__ -mmHg 35.0 45.0 pO2 107 -mmHg 69.0 116 HCO3- ___20.1__ -mmol/L 22.0 26.0 ABE ___-2.7__ -mmol/L -2.0 2.0 tHb ____7.0__ -g/dL 12.0 18.0 O2Hb ___96.2__ -% COHb ____1.6__ -% 0.0 1.5 MetHb ____0.5__ -% 0.4 1.5 sO2 ___98.3__ -% 25.0 FIO2 ___32.0__ -% Drawn By as - Date/Time Notified____ 14:08:00 -_ Spontaneous_RR ___26.0__ -b/min Liter_Flow ____3.0__ -L/min Oxygen Device 1 __CANNULA - Notified By AMS - Notified Whom DR OKELLY - B 756 -mmHg tO2 ____9.7__ -Vol% Lion test _Positive -
[2017-04-21 14:45] LABS: APPEARANCE,URINE HAZY (CLEAR,HAZY); COLOR,URINE DARK YELLOW (YELLOW)
[2017-04-21] MEDS ORDERED: fentaNYL-PF 50 mCg/mL 2 mL Inj IVPUSH PRN (14:45)
[2017-04-21 14:46] LABS: OCCULT BLOOD,URINE TRACE (NEGATIVE); PH,URINE 7.5 (5.0-8.0); UROBILINOGEN,URINE NORMAL (NORMAL)
--- NOTE | 2017-04-21 15:22 | DRSVH ---
PROCEDURE: CT ANGIO CHEST PULMONARY EMBOLISM ([id number]) INDICATIONS: shock, syncope, prolonged hospital stay TECHNIQUE: After the administration of intravenous contrast, 2 mm thick sections acquired from the pulmonary api elsa to the posterior costophrenic angles. 3-dimensional maximum intensity projection (MIP) coronal a nd sagittal reformats were then acquired through the thorax. For radiation dose reduction, the follo wing was used: automated exposure control, adjustment of mA and/or kV according to patient size. COMPARISON: [facility], CT, CT ABD PELVIS W CON, 04[facility]21[facility]2017, 14:53[facility], 03/24/2017, 16:06. FINDINGS: Image quality: Suboptimal evaluation of the pulmonary arteries related to respiratory motion artifact within the lung apices and the lung bases is present. Pulmonary arteries: The pulmonary arteries are not well seen within the lung bases and lung apices re lated to moderate respiratory motion artifact, which does limit evaluation for small pulmonary emboli . No large pulmonary emboli are present. The main pulmonary arterial trunk is not enlarged. Lungs and pleura: Evaluation of the lungs is difficult related to respiratory motion artifact. Howev er, there is a trace right-sided pleural effusion with associated atelectasis. Mild left basilar ate lectasis is present. No lobar consolidation is identified. Mild scarring versus groundglass attenua tion within the bilateral lung apices is incidentally noted which is better position on current study , which may be related to differences in breathing technique. A groundglass nodule is identified yordy suring approximately 6 mm in diameter within the right middle lobe (image 83, series 2), which has in creased since the previous exam, previously measuring approximately 4 mm. A separate developing grou ndglass nodule is identified slightly more superiorly, measuring up to approximately 5 mm (image 76, series 2) within the right middle lobe. No lung masses evident. Mild thickening of the left infrahi lar bronchial wall is present. There is moderate density present within the right lung. Mediastinum: Heart size is normal, without pericardial effusion. No mediastinal or hilar adenopathy . Thoracic aorta is normal in caliber and enhancement. Aortic atherosclerosis is present. There is moderate atherosclerotic irregularity noted involving the origins of the brachiocephalic artery and the left common carotid artery. Esophagus is normal in caliber, without hiatal hernia. Bones and chest wall: No suspicious bony lesions. Ribs and thoracic spine appear intact throughout. Thyroid gland is not enlarged, but contains a hypo-dense nodule measuring up to approximately 1.4 c m (image 12, series 2), which has increased since the prior study, previously measuring 9 mm.. No ax illary or supraclavicular adenopathy. Abdomen: Visualized upper abdominal solid organs appear normal in the early arterial phase of enhanc ement. IMPRESSION: 1. No large pulmonary emboli. Respiratory motion artifact limits evaluation for small emboli. 2. Mild bronchial wall thickening within the bilateral infrahilar regions (left greater than right) may represent bronchitis. 3. New/Increasing right middle lobe ground glass nodules. A three-month followup CT of the chest is recommended with contrast. 4. No lymphadenopathy within the chest. 5. 1.3 cm hypodense left thyroid nodule. Please consider a thyroid ultrasound for further evaluatio n Dictated by: Tarik Roe M.D. on 04/21/2017 at 14:11 Approved by: Tarik Roe M.D. on 04/21/2017 at 14:20
[2017-04-21] MEDS ORDERED: Lactated Ringer's 1,000 ML IV PRN (15:24)
[2017-04-21] MEDS ORDERED: Lactated Ringer's 1,000 ML IV SCH (15:24)
[2017-04-21] MEDS: Vasopressin Inj 20 UNIT in 0.9% Sodium Chloride 100 ML IV SCH ×2 (15:24→20:50)
[2017-04-21] MEDS ORDERED: DOBUTamine 500 mg/250 D5W 500,000 MCG in IV Premix 1 EACH IV PRN (15:24)
[2017-04-21] MEDS: 0.9% Sodium Chloride 1,000 ML IV SCH ×7 (15:24→23:24)
[2017-04-21] MEDS ORDERED: Norepineph 8,000 mCg/250 mL NS 8,000 MCG in IV Premix 1 EACH IV PRN (15:24)
[2017-04-21] MEDS ORDERED: Acetaminophen IV 1,000 MG in IV Premix 1 EACH IV PRN (15:25)
[2017-04-21] MEDS: 0.9% Sodium Chloride 250 ML IV SCH ×2 (15:25→18:00)
--- NOTE | 2017-04-21 15:32 | DRSVH ---
PROCEDURE: CT ABDOMEN AND PELVIS WITH CONTRAST ([id number]) INDICATIONS: Abdominal pain. History of diverticulitis. TECHNIQUE: After the administration of intravenous contrast, 5 mm thick sections acquired from the diaphragm to the symphysis. 5 mm coronal and sagittal reformats were acquired. For radiation dose reduction, the following was used: automated exposure control, adjustment of mA and/or kV according to patient siz e. COMPARISON: [facility], CT, CT ABD PELVIS W CON, 04/03/2017, 13:43[facility]ATIC PROTOCOL, 09/16/2016, 8:35. FINDINGS: Image quality: Diagnostic. ABDOMEN: Lung bases: There is a small right-sided pleural effusion. Mild bibasilar posterior costophrenic ang le atelectasis is noted. The heart is not enlarged. Mild bronchial wall thickening is evident withi n the bilateral lower lobes. Solid organs: The liver is hypodense when compared to the spleen. A slight granulomas within the li dana are noted. There are calcified gallstones within the gallbladder. The right adrenal and kidney have been removed or are congenitally absent. The left adrenal and left kidney are within normal denise its. A small exophytic cyst in the left kidney is unchanged. The spleen is unremarkable. Rounded f ocus of low attenuation involving the body of the pancreas (image 29, series 4) is not well character ized on this examination related to differences in imaging technique and overlying arms resulting in artifact. However, this area probably is unchanged. Peritoneum and bowel: The stomach, duodenum, and remainder of the small bowel loops are nondilated. The colon is not significantly distended. Wall prominence of the colon is identified, which is more prominent within the region of the hepatic flexure. There may be areas of small bowel wall prominenc e within the lower mid abdomen. No complete bowel obstruction is appreciated. A diverting colostomy within the left lower quadrant is noted. There is extensive mesenteric edema identified throughout the lower abdomen, which is more prominent within the right paracolic gutter. A small amount of free fluid is seen within the abdomen. No definite loculated or drainable fluid collections are apprecia rowan. There is no free air. Postoperative changes related to a midline abdominal laparotomy are pres ent. Small soft tissue air near the umbilicus is incidentally noted. Nodes and vessels: No retroperitoneal or mesenteric adenopathy by size criteria. Aorta and inferior vena cava are normal in size. Extensive atherosclerotic changes of the abdominal aorta and iliac ar teries is noted. Bones: There is prominent compression involving the L1 vertebral body, which is unchanged since the p rior study and demonstrates an unusual sclerotic changes. No new osseous abnormalities are evident. Multilevel degenerative changes of the spine are present. PELVIS: Genitourinary structures: There is a [place] catheter within the urinary bladder, which is noted to be decompressed. Mild prominence of the wall of the urinary bladder is present. The prostate is not en larged. Miscellaneous: No inguinal hernias or adenopathy. Small amount of free fluid is seen within the pel vis. Fluid is contained within the rectal stump. There is heterogeneous fluid at the superior shana n of the rectal stump, which is not well characterized, but does not appear to be extending into a noris wel loop and may represent free fluid is accumulating within the lower pelvic regions related to scar ring. No free air is evident. Bones: No suspicious bony lesions. No acute fractures are evident. Degenerative changes of the navdeep ged pelvic joints are unchanged. IMPRESSION: 1. Interval postoperative changes of the bowel with a left lower quadrant colostomy. No bowel obstr uction. 2. Mild ascites and moderate mesenteric edema probably is related to interval surgery. No drainable fluid collection or definable abscess is evident. 3. Mild prominence of the vieyra of multiple loops of bowel is nonspecific. However, this appearance may be related to colitis or enteritis and clinical correlation is recommended. 4. Fluid within the rectal stump probably is within normal limits. Other: -Absent right kidney and adrenal gland. -Cholelithiasis. -Hepatic steatosis. -Pancreatic lesion is not well evaluated on this exam. -Unusual appearance of an L1 compression fracture may be related to chronic sclerosis. However, a pa thologic compression fracture related to metastatic lesion is difficult to exclude. Dictated by: Tarik Roe M.D. on 04/21/2017 at 14:20 Approved by: Tarik Roe M.D. on 04/21/2017 at 14:30
[2017-04-21] MEDS ORDERED: 0.9% Sodium Chloride 1,000 ML IV PRN (15:53)
--- NOTE | 2017-04-21 16:27 | NUR ---
Inpatient Wound Nurse Patient arrived to hospital with [facility] NPWT unit (changed this morning at Wound Center), which was removed and hospital NPWT unit was attached. 125 low continuous suction obtained without challenge. CWON will see patient on Monday. Addendum: 04/21/17 at 1633 by LAKEISHA HILLS RN Wound was visualized by this CWON this morning while patient was seen for NPWT vac change by SHANE at Wound Center, as CWON was attending to patient's ostomy. Wound bed beefy red and granulating, only very scant area of thin, yellow slough. CHIEF PORT DIRECTOR debrided wound bed with curette, which bled and coagulated easily. Although depth of two pockets appeared improved, length of pockets appeared increased. This update was verbally provided to Dr. Johnson at patient's bedside (room 2011) this afternoon.
[2017-04-21] MEDS ORDERED: Heparin 5,000 Unit/mL Inj SUBQ SCH (16:30)
[2017-04-21] MEDS: Sodium Chloride LOK Flush 10 mL Syringe IVFLUSH SCH (16:30)
[2017-04-21 16:53] LABS: TROPONIN T 0.029 ug/L (0.0-0.011)
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
[2017-04-21 16:58] LABS: Mean Corpuscular Hemoglobin 29.2 pg (27.0-35.0); Mean Corpuscular Volume 96.6 fL (81-100); Platelet Count 314 bil/L (150-400)
[2017-04-21] MEDS: Norepineph 8,000 mCg/250 mL NS 8,000 MCG in IV Premix 1 EACH IV SCH (17:00)
[2017-04-21 17:04] LABS: Magnesium 1.4 mg/dL (1.6-2.6); Phosphorus 2.1 mg/dL (2.5-4.9)
[2017-04-21 17:07] LABS: BASOPHILS % (AUTO) 0 % (0-3); EOSINOPHILS % (AUTO) 1 % (0-5); MONOCYTES % (AUTO) 3 % (4-12); NEUTROPHILS % (AUTO) 73 % (40-74)
[2017-04-21] MEDS ORDERED: SODIUM CHLORIDE 0.9% IV SCH (18:00)
[2017-04-21] MEDS ORDERED: DAPTOMYCIN IV SCH (18:00)
[2017-04-21] MEDS ORDERED: Mag Sulf 4 Gm/100 mL IV Premix (Mag < 1.6 & Creat < 2) IV ONE (18:10)
[2017-04-21] MEDS ORDERED: Potassium Phos (mEq) Inj 40 MEQ in Dextrose 5% 500 ML IV ONE (18:15)
--- NOTE | 2017-04-21 18:46 | CONS ---
[address] [address] CONSULTATION REPORT PATIENT: JOSAFAT SOLIS : 1945 MR#: [id number] ADMIT: 04/21/2017 JOB ID: [id number] DATE OF SERVICE: 04/21/[address] Abiodun Cheung for this timely consult. REASON FOR CONSULTATION: Shock in patient discharged from the hospital after complex intra-abdominal surgery. HISTORY OF THE PRESENT ILLNESS: The patient is a critically ill gentleman whom I got to know during his recent hospital stay. He was admitted to this facility on March 24 with an acute abdomen. Basically, he had some vague left-sided abdominal pain for a few days and then on March 24 had a long syncopal episode in association with some chills and fever. This led to his immediate admission to the hospital and it was found that he had a perforated diverticulum with gross peritonitis. He was taken to the operating room by Dr. Sagastume and had a colostomy done and was left with drains as well as a wound below the umbilicus which ultimately was treated with a wound VAC. During the course of a very long hospital stay, which went from [address] up to his eventual discharge on April 19, the patient was aggressively cared for and he received antibiotics for a course greater than two weeks. We actually stopped his antibiotics and ID signed off the case about a week before his discharge because he was doing so well and there was no evidence of residual intra-abdominal or, for that matter, disseminated infection. He was eventually sent to [facility] for followup. One of the problems that occurred later in his hospital stay was a very significant cholestatic hepatitis which we were following. HIDA scan and other imaging of the right upper quadrant disclosed no clear evidence of acalculous cholecystitis and we eventually decided just to watch that. His admission was also complicated by encephalopathy which gradually improved though the patient was never completely oriented, even at the time of discharge apparently. There were also some persistent fevers which eventually resolved and of course he was on the ventilator for a period of time but was successfully extubated well before his discharge. In any event, the patient was discharged just a couple days ago and today was sent to the [facility] for re-evaluation of his wound VAC. There, wound VAC from below the umbilicus and above the symphysis pubis was removed and cleaned. It was felt that his wound was doing reasonably well and his wound VAC was replaced. When he first got to Wound Care today, his blood pressure was 167/148 which was initially of course extremely high and then he suffered basically a prolonged episode of syncope with the blood pressure dropped to 67/48. Because of the dramatic drop in his blood pressure and alteration in his mental status, the patient was of course transferred here and readmitted to the ICU. Since readmission an hour or so ago, he has been placed on supplemental oxygen but has not required intubation. He remains awake, if somewhat confused, but his blood pressure has not responded to several liters of fluid and the plan is now to reinitiate some vasopressor therapy. When I had tried to interview the patient this afternoon, he reports he has severe abdominal pain. He does not answer a lot of questions because he seems either somewhat confused or perhaps just a bit obtunded because of his ongoing shock. He states he has not had fevers and chills, and he was doing okay up until today's visit to the Wound Center. He denies any sinus complaint, sore throat, or stiff neck. He states he is not short of breath and is not coughing. He does report, however, that he has abdominal pain, which is quite severe and more localized apparently to the right side. He does not answer questions about nausea or vomiting. He has a colostomy which apparently has been functioning and he denies any urinary complaints. PAST MEDICAL HISTORY: 1. Perforated diverticulum, March 24, 2017, with prolonged hospital stay and multiple complications. 2. Cholestatic hepatitis documented during that long hospital admission, now resolving. 3. Renal cell carcinoma diagnosed early 2016, now status post unilateral nephrectomy and receiving pazopanib. 4. Coronary artery disease. 5. COPD. 6. Hyperlipidemia. 7. Hypertension. 8. Type 2 diabetes. SOCIAL HISTORY: The patient is a nondrinker who quit smoking seven years ago. FAMILY HISTORY: Unknown to the patient as he is currently somewhat confused and just cannot answer the question. REVIEW OF SYSTEMS: The patient is somewhat confused and obtunded, so I did not get too much review of systems, but he did tell me he has no headache, no sinus complaint and no sore throat. No trouble swallowing, and apparently, he has been [facility]. He tells me the food there was questionable. Though I have no way to verify it, that sounds correct. He states he is not short of breath, not having cough, and not having chest pain. He states he has had some degree of nausea but without vomiting. He tells me he has been eating. He says he has abdominal pain and that is ongoing and denies any issues with his colostomy or his Wound VAC. He states he is having no trouble with his urine. He has not been having trouble with his urine stream or dysuria. He tells me he has not had significant swelling of the extremities and he has been unable to walk at least so far since his return to [facility]. Remainder of review of systems could not be obtained or was negative. PHYSICAL EXAMINATION: Reveals a gentleman who is currently 38.3 axillary. His pulse is currently 120 and sinus tachycardia. Respiratory rate is about 22, and it is unlabored actually. He is saturating 100% on 2 L. His blood pressure is variable, but about 80/50 during the time I am examining the patient. That is despite a great deal of fluid boluses. He is oriented x1. He really does not have any idea about the year and believes that we are in some sort of shopping place in [place] even after his was reoriented to the hospital. His head is without trauma. His sinuses are nontender. He has no NG tube. He does have some nasal oxygen flowing. His oral cavity is without thrush, hairy leukoplakia or pharyngitis. His neck is quite supple. There is no adenopathy and his neck veins are flat. Cardiac tones notable for tachycardia. I cannot discern if he has a murmur or not. His lungs are fairly clear. His abdomen is quite tender in the right lower quadrant and right mid abdomen. There are very few bowel sounds, if any, and he has an apparently functioning colostomy on the left side of the abdomen and a midline wound VAC between the pubis and the umbilicus. A [place] catheter has been inserted and is draining moderate amounts of very dark urine. There is no inguinal adenopathy. No cervical adenopathy. His lower extremities are well perfused and without evidence of cellulitis, synovitis, or skin breakdown. He just has a PICC line and that was just inserted. LABORATORIES: Include white count 14,000, platelet count 314,000, which is much improved over what he was in the hospital, when his platelets were consistently elevated. His creatinine is 1.03. Total bilirubin 0.7. His lactic acid was 7.8 at noon in the ER. It was 4.9 by 2:00, and it is currently down to 2.8. His LFTs are improving. His AST is now down to 31, ALT now down to 26, and these have been very elevated during his prior hospitalization. His alk phos is down to 501, which for him is a victory as it was approximately 1000 just a few days ago and it has been steadily declining. Albumin 1.7. Procalcitonin 1.12, which is about in keeping with all the values he had since mid March. Urinalysis: 6-10 white cells, some bacteria seen. Micro studies were reviewed. During his March admission, he had coag-negative staph in one bottle each of two blood cultures done on admission on March 24. This was a methicillin-sensitive Staph epidermidis and was likely a contaminant though was heavily treated by many antibiotics he received during that time. Aside from those cultures, many, many blood cultures done during the March admission were negative including some fungal blood cultures. IMAGING: Today includes a CT angiogram which I reviewed. It shows no pulmonary emboli, but there is some ground-glass infiltrate which is new in the right middle lobe. I reviewed this and it is not terribly impressive on the screen. Also done was a CT abdomen. This shows perioperative changes in the bowel with a left lower quadrant colostomy. No bowel obstruction is seen. Mild ascites and mesenteric edema are noted which are likely related to surgery. IMPRESSION: This is once again a confusing case. On March 24, the patient presented with an acute abdomen secondary to perforated diverticulitis. This was appropriately managed surgically and after a long and elisa course, he was able to be discharged just a few days ago. He came back to the Wound Center for the first scheduled change of his wound VAC, which was needed for a nonhealing surgically-related wound just below the umbilicus, and during reevaluation of his wound VAC, he developed profound and sudden onset hypotension. At this point, he is confused and his exam to me is indicative of probable intra-abdominal infection. With palpation of the right side of the abdomen, he is much more tender than when he left and with shaking of the hips, he actually complains greatly about abdominal pain. At this point, I think we should broadly cover the patient for what appears to be septic shock based on his fever, leukocytosis, with left shift and generalized confusion and toxicity. I think it will be important to cover a wide variety of possibilities including sepsis arising from prior IV line, C. difficile from his residual colon and nosocomial intra-abdominal infection or even a fungemia. RECOMMENDATIONS: 1. I have added lipase onto his labs. 2. I have added stool to be checked on his colostomy for the outside possibility that he has C. difficile. 3. In the absence of evidence for C. difficile or pancreatitis, we are going to proceed with broad-spectrum antibiotics and I would give daptomycin, Zosyn, and micafungin until we have some more data in this very septic gentleman who has just finished a long and elisa and difficult ICU hospital stay. This case discussed with Dr. Canseco of the ICU team. Thank you very much.
[2017-04-21] MEDS: levoFLOXacin Inj 750 MG in IV Premix 1 EACH IV SCH (18:55)
[2017-04-21 19:14] VITALS: BP 115/84; PULSE 129; RESP 36; O2SAT 96
--- NOTE | 2017-04-21 19:21 | NUR ---
Admit.. Received from ER at 1545 via gurney. Pt somewhat somnolent from Fentanyl received for CT scan. Mumbles answers and is confused to place and date. Could state his 's name correctly. Temp 37.9.. Dr Lozoya updated. Pt hypotensive and fluid rescusitaton begun per sepsis protocol. Norepinephrine started once CVP elevated. Uop 250, dk odalys.. Wound vac machine from [employer] replaced per per diem clerk with hospital vac. Qumas vac on counter for to take back to [facility].
[2017-04-21 20:25] VITALS: BP 105/55; PULSE 123; RESP 33
[2017-04-21 20:30] VITALS: BP 104/70; PULSE 124; RESP 32; O2SAT 94
[2017-04-21 20:40] VITALS: BP 97/59; PULSE 119; RESP 31
--- NOTE | 2017-04-21 20:40 | CONS ---
[address] [address] CONSULTATION REPORT PATIENT: JOSAFAT SOLIS : 1945 MR#: [id number] ADMIT: 04/21/2017 JOB ID: [id number] DATE OF SERVICE: 04/21/2017 CHIEF COMPLAINT: A 71-year-old man in septic shock. This consultation is requested by Abiodun Cheung of the hospitalist service. HISTORY OF PRESENT ILLNESS: This is a 71-year-old man who presented to this hospital on March 24 with perforated diverticulitis. He underwent a laparotomy with a Diallo's procedure by my partner, Dr. Sagastume. He subsequently convalesced in the hospital and was discharged only four days ago. During his hospitalization, he had significant elevation in LFTs, notable for AST, ALT, and alkaline phosphatase in the thousands. He had an abdominal ultrasound that showed gallbladder wall thickening and stones impacted at the cystic duct. He did not receive treatment for this, and underwent MRCP, which did not demonstrate worrisome findings. He continued on antibiotics and ultimately was discharged from the hospital. He has had ostomy output for several weeks at this point. He returned to the hospital today in septic shock, hypotensive, tachypneic, tachycardic, with a lactate greater than 7. He was admitted to the ICU, started on antibiotics, fluid resuscitation, and pressors. Wound evaluation was performed in the [facility] today, and he had beefy granulation tissue at the base of the wound. He is still having ostomy output. His white blood cell count is in the 20s. Since he has been resuscitated his lactate has decreased to 2.8. White blood cell count decreased from 21 to 14. On examination he has significant right upper quadrant tenderness. Palpation in the right lower quadrant and left lower quadrant radiates to the right upper quadrant. He is minimally tender in the left upper quadrant. He does have rebound tenderness. A CT scan was performed showing nonspecific mesenteric fat stranding, intra-abdominal fat stranding, a gallbladder with large stones within it and mildly dilated but without a thickened wall, no sign of intra-abdominal abscess, trace free fluid, a relatively normal-appearing rectal stump with some fluid within it, and an intact ostomy. There is no pneumatosis, free air, or bowel dilation. PAST MEDICAL HISTORY: Perforated diverticulitis, cholestatic hepatitis, renal cell carcinoma status post nephrectomy, coronary artery disease, COPD, hyperlipidemia, hypertension, type 2 diabetes. MEDICATIONS: Reviewed and include Zosyn and norepinephrine at this time. ALLERGIES: No known drug allergies. SOCIAL HISTORY: He has been living at home and has family at home with him. He does not drink alcohol or smoke cigarettes at this time. REVIEW OF SYSTEMS: He is somewhat confused and therefore review of systems could not be obtained. PHYSICAL EXAMINATION: Temperature 37.9, heart rate 129, blood pressure 115/84, respiratory rate of 36, saturation 96% on 4 L. General: Awake, calm, mild distress. Head: Normocephalic. Neck: Supple. Cardiac: Tachycardia, regular rhythm. Respiratory: Tachypnea. Abdomen: Significant tenderness to palpation in the right upper quadrant. Palpation in the right lower quadrant of the abdomen radiates to the right upper quadrant. Palpation of the left lower quadrant radiates to the right upper quadrant. Mild tenderness in the left upper quadrant. His abdomen is not distended. He has stool in his ostomy bag which appears brown and normal, not loose. He has rebound tenderness. Extremities: No edema. LABORATORIES: White blood cell count was 21 on admission, 14 after resuscitation. Hematocrit was 30 on admission, 22 after resuscitation. Platelets had dropped from 548 to 314. Alkaline phosphatase is 581, AST 31, ALT 26, bilirubin 0.7. Basic metabolic panel is within normal limits. Lipase is 9. Albumin 1.7. IMAGING: CT scan of the abdomen was personally reviewed with the radiologist and reveals colostomy, no bowel obstruction, mild ascites, moderate mesenteric edema, prominence of the vieyra in multiple loops of bowel, nonspecific. Fluid within the rectal stump, probably within normal limits, cholelithiasis, hepatic steatosis, absent right kidney and adrenal gland. ASSESSMENT: A 71-year-old man with recent history of open Diallo's procedure for perforated diverticulitis, now in septic shock with tenderness in the right upper quadrant of the abdomen. I have concern that he has a peritoneal abdomen and would require intervention. However, findings on his CT scan are nonspecific. My overall clinical suspicion is that he has cholecystitis given that he has had a thickened gallbladder wall on ultrasound, stones impacted at his cystic duct, elevation of LFTs including alkaline phosphatase for several weeks, and has focal tenderness at that location, with radiation of exam from left lower quadrant and right lower quadrant to the right upper quadrant itself. For this reason, I contacted the on-call interventional radiologist, Dr. Quick, to consider cholecystostomy, given that a laparotomy in this patient would be very debilitating and risky given that he only recently had a laparotomy for perforated diverticulitis. I am not optimistic that laparoscopy would be possible given his recent surgical history. Additionally, at a minimum, if he were to not improve after cholecystostomy placement, additional diagnoses could be considered. His CT scan is nonspecific regarding the possibility for other etiologies such as bowel ischemia. There is no sign of a discrete abscess that could be drained. Currently his laboratory values are improving with medical management, however, vital signs remain abnormal despite pressor support. For all of these reasons, Dr. Quick proposed a stat HIDA scan to determine if his gallbladder is abnormal. If it does show cholecystitis, he has agreed to place a cholecystostomy tube tonight. If not, continued nonoperative management is recommended. If the patient experiences further clinical decline, laparotomy may be necessary to determine the etiology of his sepsis and potentially to treat it as well. NAV
[2017-04-21] MEDS: DAPTOMYCIN IV SCH (20:50)
[2017-04-21] MEDS: SODIUM CHLORIDE 0.9% IV SCH (20:50)
[2017-04-21] MEDS: Micafungin Inj 150 MG in 0.9% Sodium Chloride 100 ML IV SCH (20:51)
[2017-04-21] MEDS: Famotidine Inj 20 MG in IV Premix 1 EACH IV SCH (22:20)
[2017-04-21] MEDS: Piperacillin-Tazo 3.375 Gm Inj 3.375 GM in Dextrose 5% Minibag Plus 50 ML IV SCH (22:56)
[2017-04-21 23:06] VITALS: BP 113/67; PULSE 110; RESP 32
[2017-04-22] VITALS (7 sets, daily range): BP systolic 106–131; BP diastolic 58–85; PULSE 112–137; RESP 24–35; O2SAT 92–98
[2017-04-22] MEDS: Sodium Chloride LOK Flush 10 mL Syringe IVFLUSH SCH ×4 (00:30→23:42)
[2017-04-22] MEDS: HYDROmorphone 0.5 mg/0.5 mL iSecure Syringe IVPUSH PRN ×4 (02:34→23:42)
[2017-04-22 03:33] LABS: BASOPHILS % (AUTO) 0.2 % (0-3); EOSINOPHILS % (AUTO) 0.2 % (0-5); Mean Corpuscular Hemoglobin 29.9 pg (27.0-35.0); Mean Corpuscular Volume 93.9 fL (81-100); NEUTROPHILS % (AUTO) 91.9 % (40-74); Platelet Count 389 bil/L (150-400)
[2017-04-22 03:59] LABS: INR 1.22 ratio
[2017-04-22 04:24] LABS: Magnesium 2.7 mg/dL (1.6-2.6); Phosphorus 4.8 mg/dL (2.5-4.9)
--- NOTE | 2017-04-22 05:40 | NUR ---
Hida scan ordered earlier in the evening. [facility] not in house, did not hear from dept. Notified station supervisor and finally was able to get tech race relations professor to come in for hida scan. Tech from [place] finally arrived around 2300. Hida scan done. Pt tolerated scan well. Vital signs remained stable. HR has increased slightly to 130. Blood pressure 105/55 and able to wean down levophed to 0.05 mcg. 1 unit PRBC's given and electrolytes replaced. Unable to do midnight lactic, pt off floor for hida scan for several hours. Pt is oriented but is forgetful at times. Wound vac intact with no drainage noted. Will continue to closely monitor pt.
--- NOTE | 2017-04-22 05:53 | DRSVH ---
PROCEDURE: NM HIDA SCAN WITH CCK PHARMACEUTICAL: 5.3 mCi Tc-99m mebrofenin IV; two thirds of Ensure bottle INDICATIONS: ABDOMINAL PAIN. TECHNIQUE: Following intravenous administration of Tc-99m mebrofenin, sequential anterior abdominal images were obtained. To evaluate the contractile response of the gallbladder in response to Cholecystokinin (CC K), sincalide (0.02 g/kg) was administered by slow intravenous infusion approximately 60 minutes aft er the administration of the radiopharmaceutical. Sequential imaging was continued for [address] the start of CCK infusion. Gallbladder ejection fraction was calculated. COMPARISON: None. FINDINGS: Biliary scan: There is normal tracer uptake and excretion by the liver. There is normal visualizati on of the intrahepatic ducts, common bile duct, and gallbladder. There is normal tracer transit into the duodenum. CCK stimulation: There is decreased contractile response of the gallbladder to CCK infusion. The ca lculated gallbladder ejection fraction is 11%; normal values are above 35%. It has been shown that any patient abdominal pain after CCK administration is related to the rate of CCK injection, rather than to any underlying gallbladder disease (Clinical Nuclear Medicine 2012; 37: 63-70. Journal of Nuclear Medicine 2014; 55: 1-9). IMPRESSION: 1. No evidence of acute cholecystitis. 2. Low gallbladder ejection fraction 11%, consistent with sequelae of chronic cholecystitis/biliary d yskinesia. 3. Findings discussed with Dr. Johnson on 04.22.17 at 0550 hrs. Dictated by: Alcides Quick M.D. on 04/22/2017 at 5:43 Approved by: Alcides Quick M.D. on 04/22/2017 at 5:52
[2017-04-22] MEDS: Piperacillin-Tazo 3.375 Gm Inj 3.375 GM in Dextrose 5% Minibag Plus 50 ML IV SCH ×3 (06:19→22:13)
[2017-04-22] MEDS: 0.9% Sodium Chloride 1,000 ML IV SCH ×4 (08:39→22:11)
[2017-04-22] MEDS: Famotidine Inj 20 MG in IV Premix 1 EACH IV SCH ×2 (08:46→19:38)
--- NOTE | 2017-04-22 10:19 | NUR ---
Attempted to see pt. for initial clinical bedside evaluation however, pt. declining upright positioning 2' to abdominal pain. RN informed. Will attempted to see pt. at later time.
--- NOTE | 2017-04-22 10:34 | NUR ---
NUTRITION ASSESSMENT: ASSESS: 71 YO male with past medical history of recent intra-abdominal abscess secondary to perforated diverticulitis requiring sigmoid colectomy and descending colostomy which required postsurgical intubation and CCU admission. Patient's infection was treated appropriately during this hospital stay there was some concern of hepatic cholecystitis that had improved during hospital course. He returns to the ED from the Wound Center secondary to a reported 10 minute episode of unresponsiveness followed by sustained decreased mentation. Since his recent discharge, he has complained of associated abdominal pain. His [id number] reports to me that he has been refusing meals since he was discharged. He apparently has recently mentioned several times that he greatly misses his and appears quite depressed. He is admitted with severe sepsis with bandemia, lactic acidosis, anemia, elevated troponin. Surgery clinical suspicion is that he has cholecystitis given that he has had a thickened gallbladder wall on ultrasound, stones impacted at his cystic duct, elevation of LFTs including alkaline phosphatase for several weeks, and has focal tenderness at that location, with radiation of exam from left lower quadrant and right lower quadrant to the right upper quadrant itself. ID believes it is important to cover a wide variety of possibilities including sepsis arising from prior IV line, C. difficile from his residual colon and nosocomial intra-abdominal infection or even a fungemia. Workup is ongoing. The patient is NPO. He has had weight loss of 6.11% x 2 months, with a 4.2% weight loss x past 8 days = severe malnutrition. Code status: full. PMHx: CAD, COPD, renal cell carcinoma of right kidney s/p nephrectomy in October 2016, type II diabetes, HTN, dyslipidemia, heartburn, hiatal hernia, GI bleed, sigmoid colectomy with descending colostomy 03/24/2017. DIET: NPO. LABS: Reviewed. Cr 0.72, Glu 145, Lactic Acid 2.1, Ca 7.2, Mg 2.7, Alk Phos 486, alb 1.6, Lipase 9. MEDICATIONS: Reviewed. Pressor support. NUTRITION FOCUSED PHYSICAL ASSESSMENT: GI symptoms / stool: 250 mL via colostomy today. Bryan: 15. Skin Integrity: He had a Wound Vac change for the first time yesterday since his recent discharge. ANTHROPOMETRICS: Current Wt: 84.5 kg BMI: 23.0 kg/m2. IBW: 82.2 kg (103% IBW) ESTIMATED NEEDS (SEVERE MALNUTRITION, WOUND VAC): Calories: 2113 - 2535 kcal (25 - 30 kcal / kg BW) Protein: 85 - 101 g protein (1.0 - 1.2 g / kg BW) NUTRITION DIAGNOSIS: 1) Inadequate oral intake related to inability to consume sufficient energy, as evidenced by 4.2% BW loss x 8 days, refusal of meals. 2) Increased nutrient needs related to Wound Vac. INTERVENTION: 1) The patient is a full code. His depression and refusal of meals may preclude him from being a PEG tube candidate. Recommend a palliative team consult to clarify goals of care. 2) Once patient's diet is advanced will add supplements that appeal to him on trays and between meals. MONITOR/EVALUATE: NPO status, labs, weight, nutritional status. Follow up per high nutrition risk guidelines.
--- NOTE | 2017-04-22 12:26 | PCM.PNSURG ---
Subjective Date of Service: Apr 22, 2017 Visit Information: Reason for Visit Septic Shock,Nstemi Surgery/Surgery Date Post-Op Day # Date of Admission: Apr 21, 2017 at 13:59 Hospital Day # Objective Vital Sign- Last 8 Hours Date Time Temp Pulse Resp B/P Pulse Ox O2 Delivery O2 Flow Rate FiO2 04/22/17 08:30 Supplement Oxygen 04/22/17 08:24 36.8 129 29 106/76 96 Nasal Cannula 2.00 04/22/17 04:30 Supplement Oxygen 04/22/17 04:30 37.3 130 28 117/58 97 Nasal Cannula 2.00 Intake and Output- Last 8 Hour 04/22/17 Cumulative From/Thru 07:00 04/21/17 10:44 - 04/22/17 06:08 Intake Total 3333 ml 5784 ml Output Total 1450 ml 1700 ml Balance 1883 ml 4084 ml Intake Oral 200 ml 200 ml IV Total 2832 ml 5283 ml Packed Cells 301 ml 301 ml Output Urine Total 1200 ml 1450 ml Stool Total 250 ml 250 ml Drainage Total 0 ml 0 ml Result Diagram: 04/22/175 04/22/175 Assessment & Plan VTE Prophylaxis: Sub-Q Heparin (Unfractionated) Resuscitation Status: CPR: Attempt Resuscitation Yessy العراقي MD Apr 22, 2017 12:26
--- NOTE | 2017-04-22 12:37 | PCM.PNSURG ---
Subjective Date of Service: Apr 22, 2017 Date of Service: Apr 22, 2017 Visit Information: Reason for Visit Septic Shock, NSTEMI Subjective: Feels slightly better today he says. His abdominal pain is lower now, more in the suprapubic and RLQ. Received 1u pRBCs overnight. HIDA scan performed - no acute cholecystitis. Clinically improved on conservative treatment overnight. Gastrointestinal: No N/V Objective Vital Sign- Last 8 Hours Date Time Temp Pulse Resp B/P Pulse Ox O2 Delivery O2 Flow Rate FiO2 04/22/17 08:30 Supplement Oxygen 04/22/17 08:24 36.8 129 29 106/76 96 Nasal Cannula 2.00 04/22/17 04:30 Supplement Oxygen 04/22/17 04:30 37.3 130 28 117/58 97 Nasal Cannula 2.00 Intake and Output- Last 8 Hour 04/22/17 Cumulative From/Thru 07:00 04/21/17 10:44 - 04/22/17 06:08 Intake Total 3333 ml 5784 ml Output Total 1450 ml 1700 ml Balance 1883 ml 4084 ml Intake Oral 200 ml 200 ml IV Total 2832 ml 5283 ml Packed Cells 301 ml 301 ml Output Urine Total 1200 ml 1450 ml Stool Total 250 ml 250 ml Drainage Total 0 ml 0 ml General: Alert, Oriented X3, Cooperative, Mild Distress Lungs: Clear to Auscultation, Normal Air Movement Heart: Regular Rate/Rhythm Abdomen: Other (Distended abdomen, tender to palpation in the RLQ and suprapubic regions, non tender RUQ. Peritoneal abdomen. No rebound and no guarding.) Extremities: Warm Result Diagram: 04/22/17 0315 04/22/17 0315 Diagnostics: HIDA scan with 11% gallbladder EF but empyting, consistent with possible chronic cholecystitis but no acute cholecystitis. Assessment & Plan Impression 71 yo M with septic shock of unknown etiology. Possible chronic cholecystitis but no acute process. No obvious intrabdominal acute process identified on CT abdomen, non specific fat stranding in the mesentery. Improved lactic acid to 2.1 after 5L fluid resuscitation overnight and levophed titrated down overnight. Continues on IV antibiotics with clinical improvement. No acute decompensation at this point and would not recommend surgical intervention unless clinical decompensation. Problems: Plan Continue conservative non surgical management with optimal critical care and medical management. Continue IV antibiotic regimen. Wean pressors as able. Trend daily CBC and electrolytes. Appreciate critical care team management. Please contact General Surgery if acute decompensation or significant change in clinical exam as we would consider laparotomy at that point if not stable or responding to current treatment. VTE Prophylaxis: Sub-Q Heparin (Unfractionated) Resuscitation Status: CPR: Attempt Resuscitation Yessy العراقي MD Apr 22, 2017 12:37
[2017-04-22] MEDS: 0.9% Sodium Chloride 250 ML IV SCH ×2 (15:25→17:46)
[2017-04-22] MEDS: Vasopressin Inj 20 UNIT in 0.9% Sodium Chloride 100 ML IV SCH ×2 (15:36→22:24)
--- NOTE | 2017-04-22 17:31 | NUR ---
Social Work Note: Attempted Initial Assessment Data& Assessment: HATCHERY MAN attempted to meet with pt at bedside to discuss discharge planning and complete initial assessment. Per RN pt is confused and not appropriate to complete assessment with. HATCHERY MAN to follow up with his spouse. HATCHERY MAN to continue to follow. Plan: Anticipated discharge home when medically ready. HATCHERY MAN to follow up with his spouse. HATCHERY MAN to continue to follow. CUCA De Los Santos
[2017-04-22] MEDS: Norepineph 8,000 mCg/250 mL NS 8,000 MCG in IV Premix 1 EACH IV SCH (17:46)
--- NOTE | 2017-04-22 17:55 | NUR ---
Tele/Levo: @ 0836 to 0939 patient HR 170's. Pt asymptomatic. BP Stable. Dr Cheung notified. Stat EKG ordered and taken at 0840. HR dropped to ST 130's right before EKG was taken. reviewed EKG. No further orders at this time. Levo was titrated off at 1000 this morning. Maintaining MAP 70's. Tele: ST 130's where it has sustained most of shift. MD aware no further orders at this time.
--- NOTE | 2017-04-22 18:22 | PCM.PNMED ---
Subjective Date of Service Apr 22, 2017 Subjective 8-year-old man with complicated recent history of perforated diverticular abscess presents with sepsis of presumed abdominal origin. He is more alert today. Continues to verbalize abdominal pain but is unable to localize this. No respiratory complaints. Exam Vital Signs Vital Sign - Last Date Time Temp Pulse Resp B/P Pulse Ox O2 Delivery O2 Flow Rate FiO2 04/22/17 15:49 36.9 130 24 131/85 92 Room Air 04/22/17 12:39 2.00 Intake and Output 04/21/17 04/21/17 04/22/17 Cumulative From/Thru 15:00 23:00 07:00 04/21/17 10:44 - 04/22/17 06:08 Intake Total 2451 ml 3333 ml 5784 ml Output Total 250 ml 1450 ml 1700 ml Balance 2201 ml 1883 ml 4084 ml Intake Oral 200 ml 200 ml IV Total 2451 ml 2832 ml 5283 ml Packed Cells 301 ml 301 ml Output Urine Total 250 ml 1200 ml 1450 ml Stool Total 250 ml 250 ml Drainage Total 0 ml 0 ml 0 ml Exam General: A chronically ill-appearing man but no acute distress HEENT: sclerae anicteric, oral mucosa dry Neck: no JVD Chest: clear to auscultation anterolaterally Cardiac: S1S2, Giller, no murmur Abdomen: BS absent, very tender to light palpation RUQ, RLQ and LLQ; colostomy in place left mid quadrant. Wound VAC in place lower midline. Extremities: No pitting edema. Pedal pulses are brisk. Skin is warm and dry. No splinter hemorrhages are focal areas of soft tissue infection. Neuro: Alert and mostly oriented, cranial nerves symmetric, motor strength generally weak, coordination normal IVs and Medications Medications Reviewed: Medications were reviewed in detail Lab and Diagnostics Result Diagram: 04/22/1731404/22/17314 Microbiology Blood cultures pending X-Rays, CTs and MRIs . X-RAY CHEST ONE VIEW, PORTABLE IMPRESSION: No acute cardiopulmonary disease. Dictated by: Darius Molina M.D. on 04/21/2017 X-RAY PICC LINE PLACEMENT BY NURSE IMPRESSION: Tip of PICC lies within the lower superior vena cava. Dictated by: Darius Molina M.D. on 04/21/2017 CT ANGIO CHEST PULMONARY EMBOLISM IMPRESSION: 1. No large pulmonary emboli. Respiratory motion artifact limits evaluation for small emboli. 2. Mild bronchial wall thickening within the bilateral infrahilar regions ( left greater than right) may represent bronchitis. 3. New/Increasing right middle lobe ground glass nodules. A three-month followup CT of the chest is recommended with contrast. 4. No lymphadenopathy within the chest. 5. 1.3 cm hypodense left thyroid nodule. Please consider a thyroid ultrasound for further evaluation Dictated by: Tarik Roe M.D. on 04/21/2017 CT ABDOMEN AND PELVIS WITH CONTRAST IMPRESSION: 1. Interval postoperative changes of the bowel with a left lower quadrant colostomy. No bowel obstruction. 2. Mild ascites and moderate mesenteric edema probably is related to interval surgery. No drainable fluid collection or definable abscess is evident. 3. Mild prominence of the vieyra of multiple loops of bowel is nonspecific. However, this appearance may be related to colitis or enteritis and clinical correlation is recommended. 4. Fluid within the rectal stump probably is within normal limits. Other: -Absent right kidney and adrenal gland. -Cholelithiasis. -Hepatic steatosis. -Pancreatic lesion is not well evaluated on this exam. -Unusual appearance of an L1 compression fracture may be related to chronic sclerosis. However, a pathologic compression fracture related to metastatic lesion is difficult to exclude. Dictated by: Tarik Roe M.D. on 04/21/2017 Additional Diagnostics DateTimeAnalyzed 14:02:00 -_ pH ____7.474 - 7.350 7.450 pCO2 ___27.7__ -mmHg 35.0 45.0 pO2 107 -mmHg 69.0 116 HCO3- ___20.1__ -mmol/L 22.0 26.0 ABE ___-2.7__ -mmol/L -2.0 2.0 tHb ____7.0__ -g/dL 12.0 18.0 O2Hb ___96.2__ -% COHb ____1.6__ -% 0.0 1.5 MetHb ____0.5__ -% 0.4 1.5 sO2 ___98.3__ -% 25.0 FIO2 ___32.0__ -% Drawn By as - Date/Time Notified____ 14:08:00 -_ Spontaneous_RR ___26.0__ -b/min Liter_Flow ____3.0__ -L/min Oxygen Device 1 __CANNULA - Notified By AMS - Notified Whom DR OKELLY - B 756 -mmHg tO2 ____9.7__ -Vol% Lion test _Positive - Assessment & Plan 71 year old gentleman with recent history of sigmoid colectomy and descending colostomy secondary to perforated diverticulitis causing abscess, a history of CAD with 2 stents, COPD, hyperlipidemia, and right-sided renal cell carcinoma (s /p nephrectomy in October 2016) admitted for severe sepsis, with bandemia, lactic acidosis, anemia, elevated troponin Severe septic shock, present on admission. Ongoing. On admit lactic acid 7.8, tachypneic, tachycardic, leukocytosis with presumed source of abdominal infection (normal chest x-ray, normal urinalysis). Hypotensive requiring norepinephrine and aggressive fluid hydration. On day one he is able to wean off of norepinephrine. -Continue moderate IVF as needed for blood pressure support -Monitor for signs organ dysfunction. Acute abdominal inflammation and infection, present on admission. Recently discharged 03/19/2017 for abdominal abscess secondary to ruptured diverticula requiring sigmoid colectomy and colostomy. Abdominal wall wound was opened and repacked on day of admission without signs of acute abscess. Abdominal CT with no obvious abscess or fluid pockets to drain though possible peritonitis/colitis , or cholecystitis. Gallbladder is enlarged with stones but no signs of inflammation. HIDA scan positive for biliary transport with moderately reduced secretory response. Interventional radiology has reviewed the case and does not feel that cholecystostomy as indicated. -Infectious disease consult -Surgery consult -Antibiotics currently levofloxacin, Zosyn, daptomycin and micafungin -Wound VAC in place, reported to have been changed on day of admission. Wound care consult Diabetes mellitus, type 2, chronic. Present on admission. Presumed stable. - 4 times a day capillary blood glucose - Glucose control goals: Random less than 180, fasting less than 140, none less than 70 - Insulin as needed, divided 50-50 long-acting and nutritional/correctional. Stable, resolving and/or chronic problems: Respiratory alkalosis with metabolic acidosis. Present on admission. Ongoing. Tachypnea due to pain and sepsis Respiratory alkalosis most likely secondary to tachypnea, but about acidosis possibly secondary to elevated lactic acid -Continue to monitor Elevated liver function tests including alkaline phosphatase, POA, acute. Active Patient has had high normal Alk Phosm 915, prior to discharge 04/17/2017 alkaline phosphatase 1181. AST mildly elevated -Ultrasound of the abdomen 04/07/2017 (last admission) shows a prominent gallbladder (4.2 mm), HIDA scan & MRCP 04/05 clear -HIDA scan obtained on 04/05 shows no evidence of cholecystitis. Results as above -IR recommends no additional imaging studies at this point Acute Encephalopathy, present on admission, active - Improving as of day 1 -Continue to monitor Normocytic anemia, present on admission, stable. -Hemoglobin 9.2 on admit prior to fluid administration, and globin Route level approximately 7.5 average during last admission -Consider transfusion if patient remains less than 7.0 -Continue to monitor Hypertension, chronic. Not present on admission. Ongoing -Currently hypotensive, requiring blood pressure support -Hold home meds Elevated troponins. Unknown significance. Continue to monitor -EKG showed sinus tachycardia with an old inferior infarct -Initial troponin elevated 0.045, repeat pending Coronary artery disease, chronic. Present on admission. stable. -History of prior [place] requiring two stents. -Hold home statin secondary to elevated LFTs -Hold home meds Renal cell carcinoma of right kidney, chronic. Presumed stable. -Pt is s/p nephrectomy in October 2016, previously treated with Pazopanib and dexamethasone. -Per recommendations of oncology from prior admission Pazopanib and dexamethasone may be held for 4-6 weeks while patient stabilizes. -CT abd/pelvis renal cyst as above -Hold home meds -Follow up with Oncology as outpatient in 1-2 weeks to deterimine when to resume Pazopanib and dexamethasone. Possible urinary tract infection. Present admission. Ongoing -Ruled out Patient Status: Patient was admitted under inpatient status with expected length of stay greater than two midnights due to severity of presenting symptoms , risk of adverse event, and complexity of treatment plan. GI Prophylaxis: H2 saw VTE Prophylaxis: Sub-Q Heparin (Unfractionated) VTE Mechanical Devices: Intermittant Pneumatic CD Resuscitation Status: CPR: Attempt Resuscitation Time spent 45 minutes Attila Cheung MD Apr 22, 2017 18:22
[2017-04-22] MEDS: levoFLOXacin Inj 750 MG in IV Premix 1 EACH IV SCH (18:48)
[2017-04-22] MEDS: SODIUM CHLORIDE 0.9% IV SCH (19:38)
[2017-04-22] MEDS: DAPTOMYCIN IV SCH (19:38)
[2017-04-22] MEDS: Micafungin Inj 150 MG in 0.9% Sodium Chloride 100 ML IV SCH (20:27)
[2017-04-23] VITALS (10 sets, daily range): BP systolic 102–127; BP diastolic 59–71; PULSE 114–130; RESP 21–29; O2SAT 93–98
--- NOTE | 2017-04-23 00:47 | NUR ---
P) Cardiac/Respiratory/LOC Pt. alert, oriented x1, hallucinating, cardiac rhythm ST in the 130's generally, per report had some runs of SVT in the 180's on day shift. Confused, keeps pulling O2 off. Able to tell me he has pain but not localize site, restless, attempting to urn q2 but he immediately scoots back on his back and throws pillows on floor. Lungs with decreased breath sounds bilat and faint crackles in bases, slightly coarse breath sounds in upper lobes, no cough noted. I) Meds per 's orders, encourage pulmonary hygiene but pt. can't follow directions well, SCD's and trying to turn q2h and float heels, pt. not cooperative. E) Currently resting more quietly after pain med.
[2017-04-23] MEDS: Piperacillin-Tazo 3.375 Gm Inj 3.375 GM in Dextrose 5% Minibag Plus 50 ML IV SCH ×3 (06:01→22:35)
[2017-04-23] MEDS: HYDROmorphone 0.5 mg/0.5 mL iSecure Syringe IVPUSH PRN ×4 (06:03→20:46)
--- NOTE | 2017-04-23 07:00 | NUR ---
Patterson/Mentation Patient pulled out his patterson at beginning of this shift. MD notified and agreed it did not need to be replaced at this time. Patient is alert but oriented to self only, confused and speech not appropriate for situation. VSS. Patient restless but has not attempted to climb out of bed. Negar alarm on and IV lines covered for safety.
[2017-04-23] MEDS: Famotidine Inj 20 MG in IV Premix 1 EACH IV SCH ×2 (08:32→20:29)
[2017-04-23] MEDS: 0.9% Sodium Chloride 1,000 ML IV SCH ×3 (08:32→20:29)
[2017-04-23] MEDS: Sodium Chloride LOK Flush 10 mL Syringe IVFLUSH SCH ×3 (08:32→20:46)
[2017-04-23 08:53] LABS: Mean Corpuscular Volume 96.3 fL (81-100)
--- NOTE | 2017-04-23 10:25 | NUR ---
Evaluation completed. Please go to "Notes" then click on "Assessments and Notes" (bottom left corner of screen). Then select appropriate discipline tab on top of screen.
--- NOTE | 2017-04-23 11:44 | PCM.PNMED ---
Subjective Date of Service Apr 23, 2017 Subjective Patient is a 71-year-old male who recently had intra-abdominal abscesses requiring hemicolectomy presented with florid sepsis, now resolved. No overnight events, has not required pressor support. Patient reports mild diffuse abdominal pain otherwise no other complaints today. Exam Vital Signs Vital Sign - Last Date Time Temp Pulse Resp B/P Pulse Ox O2 Delivery O2 Flow Rate FiO2 04/23/17 08:19 Supplement Oxygen 04/23/17 08:19 36.7 127 21 103/64 93 2.00 Intake and Output 04/22/17 04/22/17 04/23/17 Cumulative From/Thru 15:00 23:00 07:00 04/21/17 10:44 - 04/23/17 06:22 Intake Total 1239 ml 1845 ml 8868 ml Output Total 595 ml 2295 ml Balance 644 ml 1845 ml 6573 ml Intake Oral 0 ml 200 ml IV Total 1239 ml 1845 ml 8367 ml Packed Cells 301 ml Output Urine Total 580 ml 2030 ml Stool Total 10 ml 260 ml Drainage Total 5 ml 5 ml Exam General: No acute distress, appropriately interactive HEENT: Normocephalic, atraumatic. PERRLA, EOMI, Anicteric sclerae, pale conjunctiva Neck: No JVD, No bruits. No lymphadenopathy or thyromegaly. Cardiovascular: Regular rate and rhythm with no murmurs, rubs, or gallops appreciated Pulmonary: Bilateral air sound, crackles in the right lower base, no wheezes or coarse breathing Abdomen: +Bowel sound, Soft, nontender, nondistended. Wound VAC in place, passing gas Extremities: No clubbing or cyanosis, no lymphedema, no b/l lower leg edema Skin: Normal temperature, turgor, and texture; no rash. No visualized skin ulcer. Neurological: CN II-VII grossly intact, moving equally on all 4 extremities Psychiatric: Normal mood and affect. AOx3 Lab and Diagnostics Result Diagram: 04/23/1734404/23/17344 Microbiology Blood cultures pending X-Rays, CTs and MRIs . X-RAY CHEST ONE VIEW, PORTABLE IMPRESSION: No acute cardiopulmonary disease. Dictated by: Darius Molina M.D. on 04/21/2017 X-RAY PICC LINE PLACEMENT BY NURSE IMPRESSION: Tip of PICC lies within the lower superior vena cava. Dictated by: Darius Molina M.D. on 04/21/2017 CT ANGIO CHEST PULMONARY EMBOLISM IMPRESSION: 1. No large pulmonary emboli. Respiratory motion artifact limits evaluation for small emboli. 2. Mild bronchial wall thickening within the bilateral infrahilar regions ( left greater than right) may represent bronchitis. 3. New/Increasing right middle lobe ground glass nodules. A three-month followup CT of the chest is recommended with contrast. 4. No lymphadenopathy within the chest. 5. 1.3 cm hypodense left thyroid nodule. Please consider a thyroid ultrasound for further evaluation Dictated by: Tarik Roe M.D. on 04/21/2017 CT ABDOMEN AND PELVIS WITH CONTRAST IMPRESSION: 1. Interval postoperative changes of the bowel with a left lower quadrant colostomy. No bowel obstruction. 2. Mild ascites and moderate mesenteric edema probably is related to interval surgery. No drainable fluid collection or definable abscess is evident. 3. Mild prominence of the vieyra of multiple loops of bowel is nonspecific. However, this appearance may be related to colitis or enteritis and clinical correlation is recommended. 4. Fluid within the rectal stump probably is within normal limits. Other: -Absent right kidney and adrenal gland. -Cholelithiasis. -Hepatic steatosis. -Pancreatic lesion is not well evaluated on this exam. -Unusual appearance of an L1 compression fracture may be related to chronic sclerosis. However, a pathologic compression fracture related to metastatic lesion is difficult to exclude. Dictated by: Tarik Roe M.D. on 04/21/2017 Additional Diagnostics DateTimeAnalyzed 14:02:00 -_ pH ____7.474 - 7.350 7.450 pCO2 ___27.7__ -mmHg 35.0 45.0 pO2 107 -mmHg 69.0 116 HCO3- ___20.1__ -mmol/L 22.0 26.0 ABE ___-2.7__ -mmol/L -2.0 2.0 tHb ____7.0__ -g/dL 12.0 18.0 O2Hb ___96.2__ -% COHb ____1.6__ -% 0.0 1.5 MetHb ____0.5__ -% 0.4 1.5 sO2 ___98.3__ -% 25.0 FIO2 ___32.0__ -% Drawn By as - Date/Time Notified____ 14:08:00 -_ Spontaneous_RR ___26.0__ -b/min Liter_Flow ____3.0__ -L/min Oxygen Device 1 __CANNULA - Notified By AMS - Notified Whom DR ALEX - B 756 -mmHg tO2 ____9.7__ -Vol% Lion test _Positive - Assessment & Plan 71 year old gentleman with recent history of sigmoid colectomy and descending colostomy secondary to perforated diverticulitis causing abscess, a history of CAD with 2 stents, COPD, hyperlipidemia, and right-sided renal cell carcinoma (s /p nephrectomy in October 2016) admitted for severe sepsis, with bandemia, lactic acidosis, anemia, elevated troponin Acute abdominal inflammation and infection, present on admission. Recently discharged 03/19/2017 for abdominal abscess secondary to ruptured diverticula requiring sigmoid colectomy and colostomy. Abdominal wall wound was opened and repacked on day of admission without signs of acute abscess. Abdominal CT with no obvious abscess or fluid pockets to drain though possible peritonitis/colitis , or cholecystitis. Gallbladder is enlarged with stones but no signs of inflammation. HIDA scan positive for biliary transport with moderately reduced secretory response. Interventional radiology has reviewed the case and does not feel that cholecystostomy as indicated. -Infectious disease consult -Surgery consult -Antibiotics currently levofloxacin, Zosyn, daptomycin and micafungin. Cultures , viral PCR have been negative thus far. -Wound VAC in place, reported to have been changed on day of admission. Wound care consult -Trending procalcitonin. should expect to fall by 1/2 daily. Diabetes mellitus, type 2, chronic. Present on admission. Presumed stable. - 4 times a day capillary blood glucose - Glucose control goals: Random less than 180, fasting less than 140, none less than 70 - Insulin as needed, divided 50-50 long-acting and nutritional/correctional. Stable, resolving and/or chronic problems: Severe septic shock, present on admission. Resolved. On admit lactic acid 7.8 , tachypneic, tachycardic, leukocytosis with presumed source of abdominal infection (normal chest x-ray, normal urinalysis). Hypotensive requiring norepinephrine and aggressive fluid hydration. On day one he is able to wean off of norepinephrine. -Continue moderate IVF as needed for blood pressure support -Monitor for signs organ dysfunction. Respiratory alkalosis with metabolic acidosis. Present on admission. Ongoing. Tachypnea due to pain and sepsis Respiratory alkalosis most likely secondary to tachypnea, but about acidosis possibly secondary to elevated lactic acid -Continue to monitor Elevated liver function tests including alkaline phosphatase, POA, acute. Active Patient has had high normal Alk Phosm 915, prior to discharge 04/17/2017 alkaline phosphatase 1181. AST mildly elevated -Ultrasound of the abdomen 04/07/2017 (last admission) shows a prominent gallbladder (4.2 mm), HIDA scan & MRCP 04/05 clear -HIDA scan obtained on 04/05 shows no evidence of cholecystitis. Results as above -IR recommends no additional imaging studies at this point Acute Encephalopathy, present on admission, active - Improving as of day 1 -Continue to monitor Normocytic anemia, present on admission, stable. -Hemoglobin 9.2 on admit prior to fluid administration, and globin Route level approximately 7.5 average during last admission -Consider transfusion if patient remains less than 7.0 -Continue to monitor Hypertension, chronic. Not present on admission. Ongoing -Currently hypotensive, requiring blood pressure support -Hold home meds Elevated troponins. Unknown significance. Continue to monitor -EKG showed sinus tachycardia with an old inferior infarct -Initial troponin elevated 0.045, repeat pending Coronary artery disease, chronic. Present on admission. stable. -History of prior [place] requiring two stents. -Hold home statin secondary to elevated LFTs -Hold home meds Renal cell carcinoma of right kidney, chronic. Presumed stable. -Pt is s/p nephrectomy in October 2016, previously treated with Pazopanib and dexamethasone. -Per recommendations of oncology from prior admission Pazopanib and dexamethasone may be held for 4-6 weeks while patient stabilizes. -CT abd/pelvis renal cyst as above -Hold home meds -Follow up with Oncology as outpatient in 1-2 weeks to deterimine when to resume Pazopanib and dexamethasone. Possible urinary tract infection. Present admission. Ongoing -Ruled out Disposition: Patient will likely be inpatient for the next several days as we continue to treat his underlining infection. GI Prophylaxis: H2 saw VTE Prophylaxis: Sub-Q Heparin (Unfractionated) VTE Mechanical Devices: Intermittant Pneumatic CD Resuscitation Status: CPR: Attempt Resuscitation Time spent 35 minutes Attending Statement I interviewed and examined the patient on rounds today. Seems to be clinically improving with medical therapy. I agree with the assessment and plan as stated above. Leandro Contreras DO Apr 23, 2017 11:44 Attila Cheung MD Apr 23, 2017 16:42
[2017-04-23] MEDS: Vasopressin Inj 20 UNIT in 0.9% Sodium Chloride 100 ML IV SCH ×2 (11:52→20:20)
[2017-04-23] MEDS: 0.9% Sodium Chloride 250 ML IV SCH ×2 (15:25→18:00)
--- NOTE | 2017-04-23 17:59 | NUR ---
Social Work Note: Initial Assessment Data& Assessment: EMR reviewed. Pt still too sleepy to engage in initial assessment today, [employer] ASS[employer]IATE spoke with pt Augustina via t/c. Humberto Saldivar is a 71 year old male admitted on 04/21/2017 for septic shock and NSTEMI. Pt has Medicare and for [employer] supplement, pt is unsure of service connection percentage. Pt lives at home with his but came from [facility] where he was there for rehab. Per pt , pt was only there for two days. Pt confirms that the discharge plan would be for pt to return there when medically ready to continue his rehab stay. Pt does not have [facility] or LTC insurance. Pt would typically ambulate with a cane at his baseline and would drive. Pt states that pt DPOA/AD paperwork is in the process of getting legalized. [employer] ASSOCIATE requested a copy when possible. Pt denies any other needs at this time. PRE[employer] FOODS ASSOCIATE to continue to follow for pt needs and MD orders. [employer] ASSOCIATE to provide access to [facility] in anticipation of pt return pending MD order. Plan: Anticipated discharge back to [facility] for continue rehab pending MD order when medically ready. Pt denies any other needs at this time. [employer] ASSOCIATE to continue to follow for pt needs and MD orders. CUCA De Los Santos Addendum: 04/23/17 at 1804 by MANNY DALTON Amended: Links added.
[2017-04-23] MEDS: levoFLOXacin Inj 750 MG in IV Premix 1 EACH IV SCH (18:08)
[2017-04-23] MEDS: Micafungin Inj 150 MG in 0.9% Sodium Chloride 100 ML IV SCH (20:29)
[2017-04-23] MEDS: DAPTOMYCIN IV SCH (22:35)
[2017-04-23] MEDS: SODIUM CHLORIDE 0.9% IV SCH (22:35)
[2017-04-24] VITALS (8 sets, daily range): BP systolic 127–150; BP diastolic 73–93; PULSE 105–120; RESP 18–32; O2SAT 94–97
[2017-04-24] MEDS: 0.9% Sodium Chloride 1,000 ML IV SCH ×2 (03:24→10:04)
[2017-04-24 04:39] LABS: Mean Corpuscular Hemoglobin 29.5 pg (27.0-35.0); Mean Corpuscular Volume 95.1 fL (81-100)
[2017-04-24] MEDS ORDERED: 0.9% Sodium Chloride 250 ML IV SCH (04:45)
--- NOTE | 2017-04-24 06:00 | NUR ---
Labs Pt h/h critically low. notified and I unit PRBC ordered. Information given to hand off nurse and day shift RN. Pt hemodynamically stable. Care ongoing
[2017-04-24 08:04] LABS: BASOPHILS % (AUTO) 0.1 % (0-3); EOSINOPHILS % (AUTO) 1.4 % (0-5); NEUTROPHILS % (AUTO) 90.6 % (40-74)
[2017-04-24] MEDS: Famotidine Inj 20 MG in IV Premix 1 EACH IV SCH ×2 (08:42→21:37)
[2017-04-24] MEDS: Sodium Chloride LOK Flush 10 mL Syringe IVFLUSH SCH ×3 (08:42→23:24)
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
[2017-04-24] MEDS: Piperacillin-Tazo 3.375 Gm Inj 3.375 GM in Dextrose 5% Minibag Plus 50 ML IV SCH ×3 (08:49→23:24)
[2017-04-24] MEDS: Vasopressin Inj 20 UNIT in 0.9% Sodium Chloride 100 ML IV SCH ×2 (10:06→21:13)
--- NOTE | 2017-04-24 12:52 | PCM.PNMED ---
Subjective Date of Service Apr 24, 2017 Subjective Patient is a 71-year-old male with a recent intra-abdominal abscess with perforation status post hemicolectomy from transitioning care admitted 3 days ago for sepsis shock secondary to probable intra-abdominal infection. Overnight, patient became significantly agitated and confused acquiring a restraints. Per nursing, he pulled out patterson and colostomy bag. Today, patient reports still with mild abdominal pain, significantly better than yesterday. Patient has increasing coughing. However no fevers chills or night sweats noted. Exam Vital Signs Vital Sign - Last Date Time Temp Pulse Resp B/P Pulse Ox O2 Delivery O2 Flow Rate FiO2 04/24/17 12:01 36.5 113 23 145/76 97 Nasal Cannula 2.00 Intake and Output 04/23/17 04/23/17 04/24/17 Cumulative From/Thru 15:00 23:00 07:00 04/21/17 10:44 - 04/24/17 06:55 Intake Total 0 ml 1620 ml 0 ml 78769 ml Output Total 520 ml 250 ml 400 ml 3465 ml Balance -520 ml 1370 ml -400 ml 7023 ml Intake Oral 0 ml 0 ml 0 ml 200 ml IV Total 1620 ml 9987 ml Packed Cells 301 ml Output Urine Total 500 ml 200 ml 400 ml 3130 ml Stool Total 20 ml 50 ml 330 ml Drainage Total 5 ml # Voids 2 3 5 Exam General: No acute distress, appropriately interactive HEENT: Normocephalic, atraumatic. PERRLA, EOMI, Anicteric sclerae, pale conjunctiva Neck: No JVD, No bruits. No lymphadenopathy or thyromegaly. Cardiovascular: Regular rate and rhythm with no murmurs, rubs, or gallops appreciated Pulmonary: Bilateral air sound, coarse breathing, no wheezes Abdomen: +Bowel sound, Soft, nontender, nondistended. Wound VAC in place, colostomy type without redness or tenderness. Passing gas. : no patterson. Extremities: No clubbing or cyanosis, no lymphedema, no b/l lower leg edema Skin: Normal temperature, turgor, and texture; no rash. No visualized skin ulcer. Neurological: CN II-VII grossly intact, moving equally on all 4 extremities Psychiatric: Normal mood and affect. AOx3 IVs and Medications IV Fluids NS 100cc/hr, changed to 75cc/hr overnight. Medications Reviewed: Medications were reviewed in detail Lab and Diagnostics Result Diagram: 04/24/1730 04/24/17 0425 Microbiology Blood cultures pending X-Rays, CTs and MRIs . X-RAY CHEST ONE VIEW, PORTABLE IMPRESSION: No acute cardiopulmonary disease. Dictated by: Darius Molina M.D. on 04/21/2017 X-RAY PICC LINE PLACEMENT BY NURSE IMPRESSION: Tip of PICC lies within the lower superior vena cava. Dictated by: Darius Molina M.D. on 04/21/2017 CT ANGIO CHEST PULMONARY EMBOLISM IMPRESSION: 1. No large pulmonary emboli. Respiratory motion artifact limits evaluation for small emboli. 2. Mild bronchial wall thickening within the bilateral infrahilar regions ( left greater than right) may represent bronchitis. 3. New/Increasing right middle lobe ground glass nodules. A three-month followup CT of the chest is recommended with contrast. 4. No lymphadenopathy within the chest. 5. 1.3 cm hypodense left thyroid nodule. Please consider a thyroid ultrasound for further evaluation Dictated by: Tarik Roe M.D. on 04/21/2017 CT ABDOMEN AND PELVIS WITH CONTRAST IMPRESSION: 1. Interval postoperative changes of the bowel with a left lower quadrant colostomy. No bowel obstruction. 2. Mild ascites and moderate mesenteric edema probably is related to interval surgery. No drainable fluid collection or definable abscess is evident. 3. Mild prominence of the vieyra of multiple loops of bowel is nonspecific. However, this appearance may be related to colitis or enteritis and clinical correlation is recommended. 4. Fluid within the rectal stump probably is within normal limits. Other: -Absent right kidney and adrenal gland. -Cholelithiasis. -Hepatic steatosis. -Pancreatic lesion is not well evaluated on this exam. -Unusual appearance of an L1 compression fracture may be related to chronic sclerosis. However, a pathologic compression fracture related to metastatic lesion is difficult to exclude. Dictated by: Tarik Roe M.D. on 04/21/2017 Additional Diagnostics DateTimeAnalyzed 14:02:00 -_ pH ____7.474 - 7.350 7.450 pCO2 ___27.7__ -mmHg 35.0 45.0 pO2 107 -mmHg 69.0 116 HCO3- ___20.1__ -mmol/L 22.0 26.0 ABE ___-2.7__ -mmol/L -2.0 2.0 tHb ____7.0__ -g/dL 12.0 18.0 O2Hb ___96.2__ -% COHb ____1.6__ -% 0.0 1.5 MetHb ____0.5__ -% 0.4 1.5 sO2 ___98.3__ -% 25.0 FIO2 ___32.0__ -% Drawn By as - Date/Time Notified____ 14:08:00 -_ Spontaneous_RR ___26.0__ -b/min Liter_Flow ____3.0__ -L/min Oxygen Device 1 __CANNULA - Notified By AMS - Notified Whom DR OKELLY - B 756 -mmHg tO2 ____9.7__ -Vol% Lion test _Positive - Assessment & Plan 71 year old gentleman with recent history of sigmoid colectomy and descending colostomy secondary to perforated diverticulitis causing abscess, a history of CAD with 2 stents, COPD, hyperlipidemia, and right-sided renal cell carcinoma (s /p nephrectomy in October 2016) admitted for severe sepsis, with bandemia, lactic acidosis, anemia, elevated troponin Acute abdominal inflammation and infection, present on admission. Recently discharged 03/19/2017 for abdominal abscess secondary to ruptured diverticula requiring sigmoid colectomy and colostomy. Abdominal wall wound was opened and repacked on day of admission without signs of acute abscess. Abdominal CT with no obvious abscess or fluid pockets to drain though possible peritonitis/colitis , or cholecystitis. Gallbladder is enlarged with stones but no signs of inflammation. HIDA scan positive for biliary transport with moderately reduced secretory response. Interventional radiology has reviewed the case and does not feel that cholecystostomy as indicated. -Infectious disease consult -Surgery consult -Antibiotics currently levofloxacin, Zosyn, and micafungin. d/c daptomycin given negative VRE/MRSA. Cultures, viral PCR have been negative thus far. -Wound VAC in place, reported to have been changed on day of admission. Wound care consult -Trending procalcitonin. should expect to fall by 1/2 daily. Severe septic shock, present on admission. Resolving On admit lactic acid 7.8, tachypneic, tachycardic, leukocytosis with presumed source of abdominal infection (normal chest x-ray, normal urinalysis). Hypotensive requiring norepinephrine and aggressive fluid hydration. On day one he is able to wean off of norepinephrine. -Continue moderate IVF as needed for blood pressure support -Monitor for signs organ dysfunction. Tachycardia, present on admission, active -suspect ongoing, but improving sepsis, possible pain Diabetes mellitus, type 2, chronic. Present on admission. Presumed stable. - 4 times a day capillary blood glucose - Glucose control goals: Random less than 180, fasting less than 140, none less than 70 - Insulin as needed, divided 50-50 long-acting and nutritional/correctional. Stable, resolving and/or chronic problems: Respiratory alkalosis with metabolic acidosis. Present on admission. resolved . Tachypnea due to pain and sepsis Respiratory alkalosis most likely secondary to tachypnea, but about acidosis possibly secondary to elevated lactic acid -Continue to monitor Elevated liver function tests including alkaline phosphatase, POA, acute. Active Patient has had high normal Alk Phosm 915, prior to discharge 04/17/2017 alkaline phosphatase 1181. AST mildly elevated -Ultrasound of the abdomen 04/07/2017 (last admission) shows a prominent gallbladder (4.2 mm), HIDA scan & MRCP 04/05 clear -HIDA scan obtained on 04/05 shows no evidence of cholecystitis. Results as above -IR recommends no additional imaging studies at this point Acute Encephalopathy, present on admission, active - Improving as of day 1 -Continue to monitor Normocytic anemia, present on admission, stable. -Hemoglobin 9.2 on admit prior to fluid administration, and globin Route level approximately 7.5 average during last admission -Consider transfusion if patient remains less than 7.0 -Continue to monitor Hypertension, chronic. Not present on admission. Ongoing -Currently hypotensive, requiring blood pressure support -Hold home meds Elevated troponins. Unknown significance. Continue to monitor -EKG showed sinus tachycardia with an old inferior infarct -Initial troponin elevated 0.045, repeat pending Coronary artery disease, chronic. Present on admission. stable. -History of prior VT requiring two stents. -Hold home statin secondary to elevated LFTs -Hold home meds Renal cell carcinoma of right kidney, chronic. Presumed stable. -Pt is s/p nephrectomy in October 2016, previously treated with Pazopanib and dexamethasone. -Per recommendations of oncology from prior admission Pazopanib and dexamethasone may be held for 4-6 weeks while patient stabilizes. -CT abd/pelvis renal cyst as above -Hold home meds -Follow up with Oncology as outpatient in 1-2 weeks to deterimine when to resume Pazopanib and dexamethasone. Possible urinary tract infection. Present admission. Ongoing -Ruled out Disposition: Patient will likely be inpatient for the next several days as we continue to treat his underlining infection. GI Prophylaxis: H2 saw VTE Prophylaxis: Sub-Q Heparin (Unfractionated) VTE Mechanical Devices: Intermittant Pneumatic CD Resuscitation Status: CPR: Attempt Resuscitation Time spent 45 minutes Attending Statement I interviewed and examined the patient on rounds today. Eliu course with overall improvement. I agree with the assessment and plan as stated above. Leandro Contreras DO Apr 24, 2017 12:52 Attila Cheung MD Apr 24, 2017 18:26
[2017-04-24] MEDS: 0.9% Sodium Chloride 250 ML IV SCH ×2 (14:56→18:00)
[2017-04-24] MEDS: HYDROmorphone 0.5 mg/0.5 mL iSecure Syringe IVPUSH PRN (14:59)
--- NOTE | 2017-04-24 16:18 | NUR ---
Restlessness/ST Hydromorphone 0.5mg IV admin for restlessness & possible pain, patient slightly confused, unaware of place, knows he's in "[place]", little effect from Dilaudid, possibly caused more confusion, made aware, asked if a small dose of lorazepam could be ordered for restlessness, stated "no". Restraints removed in a.m. d/t being oriented to place, date, self & passive. Slowly showing more signs of confusion, taking covers off & playing w/ ostomy bag. Tele: ST 115-120's, made aware, no order for rate control med.
[2017-04-24] MEDS: levoFLOXacin Inj 750 MG in IV Premix 1 EACH IV SCH (18:19)
[2017-04-24] MEDS: oxyCODONE-Acetamin 5-325 mg Tablet PO PRN (21:38)
[2017-04-24] MEDS: Micafungin Inj 150 MG in 0.9% Sodium Chloride 100 ML IV SCH (21:45)
[2017-04-25] VITALS (9 sets, daily range): BP systolic 136–158; BP diastolic 77–96; PULSE 99–117; RESP 16–32; O2SAT 92–97
[2017-04-25 02:50] LABS: BASOPHILS % (AUTO) 0.2 % (0-3); EOSINOPHILS % (AUTO) 1.3 % (0-5); MONOCYTES % (AUTO) 3.8 % (4-12); Mean Corpuscular Hemoglobin 29.2 pg (27.0-35.0); Mean Corpuscular Volume 94.2 fL (81-100); NEUTROPHILS % (AUTO) 88.4 % (40-74); Platelet Count 382 bil/L (150-400)
[2017-04-25 03:56] LABS: Magnesium 1.7 mg/dL (1.6-2.6)
--- NOTE | 2017-04-25 04:33 | NUR ---
Mentation/pain Has been confused this shift and oriented only to self. Hasn't been pulling at lines, but calls out frequently, thinking he's at home and seeing things that aren't there. Has been incontinent of urine as well as using urinal with assist. C/o back pain, especially with turning, and Percocet given with good effect. Wound vac in place to midline incision, and is draining small amount. Ostomy with just a smear of stool.
[2017-04-25] MEDS: Piperacillin-Tazo 3.375 Gm Inj 3.375 GM in Dextrose 5% Minibag Plus 50 ML IV SCH ×3 (05:43→23:13)
[2017-04-25] MEDS: oxyCODONE-Acetamin 5-325 mg Tablet PO PRN (05:43)
[2017-04-25] MEDS: Vasopressin Inj 20 UNIT in 0.9% Sodium Chloride 100 ML IV SCH ×3 (08:02→21:19)
--- NOTE | 2017-04-25 08:26 | PROG NOTE ---
[address] [address] PROGRESS NOTE PATIENT: JOSAFAT SOLIS : 1945 MR#: [id number] ADMIT: 04/21/2017 JOB ID: [id number] DATE: 04/25/2017 SUBJECTIVE: Leodan is seen in followup. He was reported to be less confused overnight, although still disoriented. He did not really get any sleep overnight. He is not complaining of much abdominal pain at rest. OBJECTIVE: Temperature 36.8, pulse 117, blood pressure 147/77, saturation 96% on room air. In general, he is resting in bed in no acute distress. Abdomen is mildly distended. He is focally tender in the right mid abdomen. There is no erythema of the abdominal wall. Wound VAC is intact. Colostomy in the left abdomen has some green stool. LABORATORIES: White count is 19.1, hematocrit 27.4, platelets 382. Creatinine 0.60. Glucose 109. Bilirubin 0.5, AST 28, ALT 14 alkaline phosphatase 378. Albumin 1.7. Procalcitonin 7.37. ASSESSMENT AND PLAN: A 71-year-old man readmitted with sepsis and shock with unclear infectious source after recent admission for severe perforated diverticulitis with feculent peritonitis. Acute cholecystitis has been ruled out. His gallbladder does not empty very well, but I do not think the gallbladder surgery is indicated. Continue wound VAC therapy for his midline wound and broad-spectrum antibiotics.
[2017-04-25] MEDS: Famotidine Inj 20 MG in IV Premix 1 EACH IV SCH ×2 (08:28→21:17)
[2017-04-25] MEDS: Sodium Chloride LOK Flush 10 mL Syringe IVFLUSH SCH ×3 (08:29→23:23)
--- NOTE | 2017-04-25 08:37 | PROG NOTE ---
[address] [address] PROGRESS NOTE PATIENT: JOSAFAT SOLIS : 1945 MR#: [id number] ADMIT: 04/21/2017 JOB ID: [id number] DATE: 04/24/2017 SUBJECTIVE: The patient is seen in followup. He complained of some mild abdominal pain today, particularly on the right abdomen. He has no nausea. He does complain of cough. He has no shortness of breath. OBJECTIVE: Temperature 36.5, pulse 113, blood pressure 145/76, saturation 97% on 2 liters nasal cannula. General: He is confused, able to be oriented, resting in bed in no acute distress. Chest: Clear. Heart: Regular rate and rhythm. No murmurs. Abdomen is soft, nondistended. He does have focal tenderness in the right mid abdomen which is focally firm. There is no erythema. The colostomy in the left abdomen has stool in the appliance. His Wound VAC is intact. LABORATORIES: White count is 21.4, hemoglobin 7.9, hematocrit 26.4, creatinine 0.57, glucose 99. Pre-albumin 3, procalcitonin 12.97. ASSESSMENT AND PLAN: A 71-year-old man readmitted with septic shock after prior hospitalization for a perforated sigmoid diverticulitis with feculent peritonitis. He is doing fine. The source of his infection remains unclear to me. His CT scan was fairly unremarkable on admission. His imaging shows a poorly emptying gallbladder, but no obstruction, no evidence of acute cholecystitis. Recommend continued supportive care and broad-spectrum antibiotics. General Surgery will continue to follow closely.
--- NOTE | 2017-04-25 10:27 | NUR ---
abd tenderness, emesis, HOB Pt c/o pain on Right side with pressure. Dr Johnson aware. Pt started on clear liquid diet, nectar thick, she will update around lunch time with plan. Pt also having some yellow mucoid secretions he is either coughing up or vomiting, he is unable to tell staff and it is unwitnessed. Lungs are coarse throughout and pt is tachypnic, RR=32. Notified MD and he is aware. During rounds, pt had emesis of mucoid green bile. 4mg zofran given to pt. Informed pt and family that HOB needs to stay 30deg or higher. Pt not always compliant with this as he has issues with his L1.
--- NOTE | 2017-04-25 12:00 | NUR ---
Social Work: Bedside Rounds/Continued Discharge Planning D: PROOF TESTER and treatment team met with patient and his at bedside to complete rounds. The patient's care plan was reviewed. Pt experiencing confusion with acting as decision maker and family manufacturer's service representative. Surgery is following as well as infectious disease to determine the source of pt's infection. Pt will likely be here several more days. Discharge plan reviewed with pt's . She agrees that she wishes for patient to return to [facility]. PROOF TESTER requested a SNF order to coordinate with [facility]. Order not placed at this time. PROOF TESTER will continue to wait this order to coordinate SNF. A: Pt who will need skilled rehab/nursing at discharge. P: PROOF TESTER to await orders from provider to provide referral and access to [facility] for SNF transfer. PROOF TESTER to continue to follow and coordinate d/c once medically stable. [employer]
--- NOTE | 2017-04-25 13:57 | NUR ---
NUTRITION FOLLOW-UP: ASSESS: Pt is a 71yo M admitted for severe sepsis. Pt was recently discharged from [facility] for abdominal abscess secondary to ruptured diverticula requiring sigmoid colectomy and colostomy. Pt required TPN during last admit. Surgery and ID are following. Today pt has been experiencing some increased AMS. He is currently on a CL diet with PO of 25%. ST has placed pt on NT liquid texture. PMHx: CAD, COPD, renal cell carcinoma of right kidney s/p nephrectomy in October 2016, type II diabetes, HTN, dyslipidemia, heartburn, hiatal hernia, GI bleed, sigmoid colectomy with descending colostomy 03/24/2017. DIET: CL, PO 25% LABS: Reviewed. Process Engineering Intern .60, glu 109, ca 7.6, alk phos 378, alb 1.7. MEDICATIONS: Reviewed. Zofran, GI symptoms / stool: colostomy, minimal output. Some emesis Skin Integrity: wound vac intact on abdomen ANTHROPOMETRICS: Current Wt: 86.5kg BMI: 24.5kg/m2, admit wt 80.5kg IBW: 86.3 kg ESTIMATED NEEDS: healing Calories: 0327-3681 kcal (25 - 30 kcal / kg BW) Protein: 105-130g protein (1.2-1.5 g / kg BW) NUTRITION DIAGNOSIS: 1) Inadequate oral intake related altered gi function as evidence by pt requiring CL diet/NPO diet order and PO 25% x2 meals. INTERVENTION: 1) Recommend advance diet when medically appropriate 2) Will add ensure CL on B and L tray and Gelatein on D tray to help increase kcal/pro intake while on CL diet. MONITOR/EVALUATE: PO, diet advance, gi, labs, weight, and nutrition status. Follow up per high nutrition risk guidelines.
[2017-04-25] MEDS: 0.9% Sodium Chloride 1,000 ML IV SCH (14:20)
[2017-04-25] MEDS: 0.9% Sodium Chloride 250 ML IV SCH ×2 (14:29→17:44)
--- NOTE | 2017-04-25 14:49 | NUR ---
Inpatient Wound and Ostomy Nurse Patient seen for ostomy system change and NPWT change. Ostomy beefy red and minimally protruding, firm tension. Two small patches of denuded skin noted on proximal peristomal area. No stool noted to be trapped behind wafer. Output dark green and liquid. Peristomal skin was cleansed and dried well, then Coloplast wafer and pouch applied. Since Coloplast has hydrocolloid for width and length of entire wafer, this should improve peristomal skin breakdown. NPWT drape removed and patient complained of pain, "I'd like to do that to some of you girls!" Black foam had to be thoroughly saturated to remove. White foam removed easily. Wound bed beefy red and granulating. Wound measured 6 cm L x 2 cm W. Center pocket measured 2.5 cm D and distal pocket measured 3.5 cm D. These dimensions are improved from 04/18/17 (6 cm L x 2 cm W with 3cm center pocket and 4.5. cm distal pocket). Periwound warm and pink, no evidence of infection, no odor, no foul drainage. Small amount of serosanguinous drainage noted in canister. Wound was cleansed with NS, blotted dry, two pockets filled with white foam and then a piece of black foam applied. A second black foam was used under track pad. Stoma paste was used to fill umbilicus. 125 low continuous suction was easily achieved. Patient remained confused throughout care, attempted to cover wound site with blankets multiple times, unable to participate in meaningful conversation. CWON will see patient again on Monday unless care is needed sooner.
--- NOTE | 2017-04-25 15:01 | PCM.PNMED ---
Subjective Date of Service Apr 25, 2017 Subjective Patient is a 71-year-old male with a recent history of intra-abdominal abscess s /p sigmoid colectomy with descending colostomy admitted 4 days ago for florid sepsis, improving, though sources of infection still to be determined. Overnight, patient noted increase confusion, pulling out IVs with some visual hallucination per nursing. Today patient presents with . Able to identify itself, orientated to place, but not time. Pt denies any increasing abdominal pain. Does states nausea with bilious vomiting. Exam Vital Signs Vital Sign - Last Date Time Temp Pulse Resp B/P Pulse Ox O2 Delivery O2 Flow Rate FiO2 04/25/17 12:41 36.7 112 22 136/84 93 Room Air 04/24/17 16:46 2.00 Intake and Output 04/24/17 04/24/17 04/25/17 Cumulative From/Thru 14:58 22:58 06:58 04/21/17 10:44 - 04/25/17 05:51 Intake Total 2607 ml 842 ml 83170 ml Output Total 650 ml 950 ml 5065 ml Balance 1957 ml -108 ml 8872 ml Intake Oral 250 ml 100 ml 550 ml IV Total 2357 ml 742 ml 41518 ml Packed Cells 301 ml Output Urine Total 650 ml 950 ml 4730 ml Stool Total 330 ml Drainage Total 5 ml # Voids 1 6 Exam General: No acute distress, appropriately interactive HEENT: Normocephalic, atraumatic. PERRLA, EOMI, Anicteric sclerae, pale conjunctiva Neck: No JVD, No bruits. No lymphadenopathy or thyromegaly. Cardiovascular: Regular rate and rhythm with no murmurs, rubs, or gallops appreciated Pulmonary: Bilateral air sound, coarse breathing, no wheezes Abdomen: +Bowel sound, Soft, mildly tender, nondistended. Wound VAC in place, colostomy type without redness or tenderness. Some pus expressed in the right trochanter side, well granulated wounds, mild erythema. : no patterson. Extremities: No clubbing or cyanosis, no lymphedema, no b/l lower leg edema Skin: Normal temperature, turgor, and texture; no rash. No visualized skin ulcer. Neurological: CN II-VII grossly intact, moving equally on all 4 extremities Psychiatric: AOx2, not orient in time. Lab and Diagnostics Result Diagram: 04/25/17 0230 04/25/17 0230 Microbiology Blood cultures pending X-Rays, CTs and MRIs . X-RAY CHEST ONE VIEW, PORTABLE IMPRESSION: No acute cardiopulmonary disease. Dictated by: Darius Molina M.D. on 04/21/2017 X-RAY PICC LINE PLACEMENT BY NURSE IMPRESSION: Tip of PICC lies within the lower superior vena cava. Dictated by: Darius Molina M.D. on 04/21/2017 CT ANGIO CHEST PULMONARY EMBOLISM IMPRESSION: 1. No large pulmonary emboli. Respiratory motion artifact limits evaluation for small emboli. 2. Mild bronchial wall thickening within the bilateral infrahilar regions ( left greater than right) may represent bronchitis. 3. New/Increasing right middle lobe ground glass nodules. A three-month followup CT of the chest is recommended with contrast. 4. No lymphadenopathy within the chest. 5. 1.3 cm hypodense left thyroid nodule. Please consider a thyroid ultrasound for further evaluation Dictated by: Tarik Roe M.D. on 04/21/2017 CT ABDOMEN AND PELVIS WITH CONTRAST IMPRESSION: 1. Interval postoperative changes of the bowel with a left lower quadrant colostomy. No bowel obstruction. 2. Mild ascites and moderate mesenteric edema probably is related to interval surgery. No drainable fluid collection or definable abscess is evident. 3. Mild prominence of the vieyra of multiple loops of bowel is nonspecific. However, this appearance may be related to colitis or enteritis and clinical correlation is recommended. 4. Fluid within the rectal stump probably is within normal limits. Other: -Absent right kidney and adrenal gland. -Cholelithiasis. -Hepatic steatosis. -Pancreatic lesion is not well evaluated on this exam. -Unusual appearance of an L1 compression fracture may be related to chronic sclerosis. However, a pathologic compression fracture related to metastatic lesion is difficult to exclude. Dictated by: Tarik Roe M.D. on 04/21/2017 Additional Diagnostics DateTimeAnalyzed 14:02:00 -_ pH ____7.474 - 7.350 7.450 pCO2 ___27.7__ -mmHg 35.0 45.0 pO2 107 -mmHg 69.0 116 HCO3- ___20.1__ -mmol/L 22.0 26.0 ABE ___-2.7__ -mmol/L -2.0 2.0 tHb ____7.0__ -g/dL 12.0 18.0 O2Hb ___96.2__ -% COHb ____1.6__ -% 0.0 1.5 MetHb ____0.5__ -% 0.4 1.5 sO2 ___98.3__ -% 25.0 FIO2 ___32.0__ -% Drawn By as - Date/Time Notified____ 14:08:00 -_ Spontaneous_RR ___26.0__ -b/min Liter_Flow ____3.0__ -L/min Oxygen Device 1 __CANNULA - Notified By AMS - Notified Whom DR OKELLY - B 756 -mmHg tO2 ____9.7__ -Vol% Lion test _Positive - Assessment & Plan 71 year old gentleman with recent history of sigmoid colectomy and descending colostomy secondary to perforated diverticulitis causing abscess, a history of CAD with 2 stents, COPD, hyperlipidemia, and right-sided renal cell carcinoma (s /p nephrectomy in October 2016) admitted for severe sepsis, with bandemia, lactic acidosis, anemia, elevated troponin Severe septic shock, present on admission. Resolving -lactic acid 7.8, tachypneic, tachycardic, leukocytosis with presumed source of abdominal infection, and AMS requiring brief pressor support. -Possible gallbladder disease given enlargement with stones with elevated LFT , HIDA positive for reduce ejection fraction system with chronic cholecystitis. -No intervention per IR/surgery -broad spec abx on board and continues -Continue tachycardic, tachypneic, leukocytosis Acute intraabdominal inflammation and infection, present on admission. -recent ruptured diverticular s/p sigmoid colectomy and colostomy (03/24-04/19) -Surgery has been consulted and following -Recommend optimize medical management -Wound VAC in place, reported to have been changed on day of admission. -Cultures, viral PCR have been negative thus far. -Infectious Disease Dr. Lozoya consulted -Continue Levaquin, Zosyn and micafungin. D/C daptomycin given the negative VRE/MRSA -Procalcitonin falls ~1/2 daily Transaminitis, POA, acute. Active Patient has had high normal Alk Phosm 915, prior to discharge 04/17/2017 alkaline phosphatase 1181. AST mildly elevated -Ultrasound of the abdomen 04/07/2017 (last admission) shows a prominent gallbladder (4.2 mm), HIDA scan & MRCP 04/05 clear -HIDA scan obtained on 04/05 shows no evidence of acute cholecystitis. Results as above -IR recommends no additional imaging studies at this point -monitor Delirium, not present on admission, active -wax-wane mentation -Seroquel 25mg nightly Severe protein malnutrition, present on admission, active -2nd to recent major surgery, poor po intake -prealbumin 3, albumin 1.7 Normocytic anemia, present on admission, stable. -Hemoglobin 9.2 on admit prior to fluid administration, and globin Route level approximately 7.5 average during last admission -Consider transfusion if patient remains less than 7.0 -Continue to monitor COPD, present on admission, stable -O2 support as needed -Duoneb prn Stable, resolving and/or chronic problems: Coronary artery disease, chronic. Present on admission. stable. -History of prior AK requiring two stents. -Hold home statin secondary to elevated LFTs -Hold home meds Renal cell carcinoma of right kidney, chronic. Presumed stable. -Pt is s/p nephrectomy in October 2016, previously treated with Pazopanib and dexamethasone. -Per recommendations of oncology from prior admission Pazopanib and dexamethasone may be held for 4-6 weeks while patient stabilizes. -CT abd/pelvis renal cyst as above -Hold home meds -Follow up with Oncology as outpatient in 1-2 weeks to deterimine when to resume Pazopanib and dexamethasone. Elevated troponins. Unknown significance. Continue to monitor -EKG showed sinus tachycardia with an old inferior infarct -Initial troponin elevated 0.045 trended down -stressed induced Respiratory alkalosis with metabolic acidosis. Present on admission. resolved. -2nd to sepsis, lactic acid Acute Encephalopathy, present on admission, resolved -Improving as of day 1 -Continue to monitor Hypertension, chronic. Not present on admission. Ongoing -Currently hypotensive, requiring blood pressure support -Hold home meds Diabetes mellitus, type 2, chronic. Present on admission. Presumed stable. -A1c 5.6 -blood glucose low 100' Disposition: Patient will likely be inpatient for the next several days back to [facility] as we continue to treat his underlining infection. GI Prophylaxis: H2 saw VTE Prophylaxis: Sub-Q Heparin (Unfractionated) VTE Mechanical Devices: Intermittant Pneumatic CD Resuscitation Status: CPR: Attempt Resuscitation Time spent I interviewed and examined the patient on rounds today. I agree with the assessment and plan as stated above. Leandro Contreras DO Apr 25, 2017 15:01 Attila Cheung MD May 01, 2017 17:54
[2017-04-25] MEDS ORDERED: Albuterol-Ipratropium 3 mL Inhalation Solution NEB PRN (16:15)
[2017-04-25] MEDS: levoFLOXacin Inj 750 MG in IV Premix 1 EACH IV SCH (17:44)
--- NOTE | 2017-04-25 18:10 | PROG NOTE ---
[address] [address] PROGRESS NOTE PATIENT: JOSAFAT SOLIS : 1945 MR#: [id number] ADMIT: 04/21/2017 JOB ID: [id number] DATE: 04/25/2017 REASON FOR FOLLOWUP: Severe right-sided abdominal pain. INTERVAL HISTORY: Overnight, the patient reports he has felt a bit better and that his abdominal pain has been decreasing. He does note, however, that at the same time, he is finding his breathing is a little more rapid and short. He denies fever or chills. He has been taking in very little of the liquid diet which he is prescribed as he finds it unpalatable as it is mainly thickened liquids. PHYSICAL EXAMINATION: Reveals a slightly more oriented gentleman who is oriented x2 today and a bit more interactive than he has been. He is afebrile, temp 36.5. His pulse 110, respiratory rate 20, blood pressure 150/96. He is saturating fairly well on room air. Examination of the mental status reveals it to be clear. His eyes are without conjunctivitis. Oral cavity: Dry mucous membranes. Lungs: Reasonably clear though he is a bit tachypneic as mentioned. Respiratory rate 20-24, about. Cardiac tones without new murmur. Abdomen is less tender on the right side, but his colostomy is having little to no output at this point. He has no gross peritoneal signs. LABORATORIES: Include white count 19,000 which is stubbornly elevated at about where it has been. Creatinine 0.6. LFTs normal but alk phos 378. Procalcitonin is coming down. It was 36, then 24, then 13, and now 7 over the last few days, showing a strong stepwise reduction consistent with a treated bacterial infection. Micro studies are basically negative except for a single blood culture, which grew lactobacillus and this is typically a contaminant. MRSA screen of the nares negative. Stool PCR negative. No new imaging has been done. The patient continues to be worrisome from an overall point of view, given that he clearly has a significant bacterial infection as evidenced by his leukocytosis and dramatically increased but now falling procalcitonin. It would seem that our antibiotics are having some salutary effect, but I am not sure exactly what process we are treating. I have discussed this case with surgery and there are certainly concerns about cholecystitis though no definitive diagnostic study to date. Likewise, it is possible he may have ischemic bowel or a micro perforation of the bowel on the right side, but we have no proof of that either. At this point, it sounds as if our course will be one of continued antibiotics as well as watchful waiting. RECOMMENDATIONS: 1. Will continue with our current very broad-spectrum antibiotics which include levofloxacin, micafungin and Zosyn, as we have no definitive cultures. Note that these antibiotics have now been going for about 4-5 days. 2. Will continue to follow white count, procalcitonin, and clinical parameters. 3. Additional imaging of the abdomen and/or right upper quadrant may be needed in the coming days. 4. This case discussed with the team.
[2017-04-25] MEDS: Micafungin Inj 150 MG in 0.9% Sodium Chloride 100 ML IV SCH (21:17)
--- NOTE | 2017-04-25 23:52 | NUR ---
Htn Dr. Marroquin paged with FYI regarding BP 158/101 HR 111. All other VSS.
[2017-04-26] VITALS (8 sets, daily range): BP systolic 127–154; BP diastolic 77–93; PULSE 99–111; RESP 18–22; O2SAT 93–95
[2017-04-26] MEDS: 0.9% Sodium Chloride 1,000 ML IV SCH ×2 (02:05→18:20)
[2017-04-26 04:44] LABS: BASOPHILS % (AUTO) 0.2 % (0-3); EOSINOPHILS % (AUTO) 0.7 % (0-5); MONOCYTES % (AUTO) 4.4 % (4-12); Mean Corpuscular Hemoglobin 29.4 pg (27.0-35.0); Mean Corpuscular Volume 93.7 fL (81-100); NEUTROPHILS % (AUTO) 86.2 % (40-74); Platelet Count 354 bil/L (150-400)
[2017-04-26 05:21] LABS: Magnesium 1.7 mg/dL (1.6-2.6)
[2017-04-26] MEDS ORDERED: KCl 40 mEq/100 mL Premix (K 3 - 3.7 & Creat < 2) IV ONE (05:40)
[2017-04-26] MEDS: Piperacillin-Tazo 3.375 Gm Inj 3.375 GM in Dextrose 5% Minibag Plus 50 ML IV SCH ×3 (05:48→23:06)
--- NOTE | 2017-04-26 06:23 | NUR ---
K protocol initiated for K 3.4. Stat draw at 1000 today. Slept off and on this shift, remains alert and oriented to self. Minimal bloody drainage from wound vac. No s/s pain observed, pt denies pain when asked. BP trending up, Dr. Marroquin notified. Weak cough noted, producing small amounts of frothy white sputum. Smear of stool noted in colostomy, otherwise no output, no gas. Hypoactive bowel tones. Q2 turns.
--- NOTE | 2017-04-26 08:29 | PROG NOTE ---
[address] [address] PROGRESS NOTE PATIENT: JOSAFAT SOLIS : 1945 MR#: [id number] ADMIT: 04/21/2017 JOB ID: [id number] DATE: 04/26/2017 REASON FOR FOLLOWUP: Right-sided abdominal pain with profound leukocytosis. INTERVAL HISTORY: The patient continues to report improvement. He says he occasionally feels cold and has a rare cough, but is not short of breath. He denies abdominal pain at this point and recall that even just a few days ago he was complaining of agonizing right-sided abdominal pain. PHYSICAL EXAMINATION: Reveals an afebrile gentleman in no acute distress. Temp 36.7, pulse 99, respiratory rate 22, blood pressure 144/77. He is saturating well on room air. He is in no acute distress. He is oriented x2 as before. Oral cavity negative. Lungs fairly clear though without much respiratory effort. Cardiac tones without new murmur. Abdomen is now completely nontender on the right side where it had previously been exquisitely tender. His colostomy continues to have very minimal output, and he has the wound VAC below the umbilicus which looks benign. His extremities are reasonably well perfused. LABORATORIES: Include a white count which is finally dropping. It was 21,000 a couple days ago, then 19, today 15 steady improvement there. Still 86% segs. His creatinine is 0.53. His liver function tests normal except his alk phos has bumped up to 443. Recall it had been in a long-term decline starting off with numbers in the thousands down gradually to 378 yesterday, 443 today. Albumin 1.7. Procalcitonin has been gone steadily down from 40 four days ago, down to 7 yesterday. Today's level is pending and we hope to see continued improvement. His urinalysis has not been repeated 6-10 white cells. No new imaging has been done. IMPRESSION: Clinically, the patient seems considerably improved. He is gradually becoming more alert, albeit still not completely oriented, and his right-sided abdominal pain has resolved along with a falling procalcitonin and now white blood count. I think we are treating some infectious process in the right side of the abdomen be gallbladder disease, bacterial translocation, or ischemic bowel. The main concern here is the lack of stool output through the colostomy. RECOMMENDATIONS: 1. Will continue on these broad-spectrum antibiotics as we follow procalcitonin. We could probably check a procalcitonin about every other day and this may be one of the circumstances where it could be quite useful. The literature shows that an 85% to 90% drop in procalcitonin correlates with a good antibacterial and antimicrobial outcome. 2. Will continue to follow white count as well as the alk phos and other parameters as well. 3. Additional imaging or interventions on the abdomen remain within the province of the surgical team who are closely following this patient.
[2017-04-26] MEDS: Famotidine Inj 20 MG in IV Premix 1 EACH IV SCH ×2 (09:11→21:27)
[2017-04-26] MEDS: Sodium Chloride LOK Flush 10 mL Syringe IVFLUSH SCH ×2 (09:12→18:24)
[2017-04-26] MEDS: Vasopressin Inj 20 UNIT in 0.9% Sodium Chloride 100 ML IV SCH (09:12)
--- NOTE | 2017-04-26 09:43 | PROG NOTE ---
[address] [address] PROGRESS NOTE PATIENT: JOSAFAT SOLIS : 1945 MR#: [id number] ADMIT: 04/21/2017 JOB ID: [id number] DATE: 04/26/2017 SUBJECTIVE: Leodan is seen in followup. He is not complaining of abdominal pain at rest today. He does have some cough, but is not complaining of shortness of breath. OBJECTIVE: Temperature 36.7, pulse 99, blood pressure 144/77. General he is chronically ill appearing, sitting up in bed, in no acute distress. Chest is clear. Heart regular rate and rhythm, no murmurs. Abdomen is mildly distended, but soft. He is focally tender in the right mid abdomen. There are no palpable masses. There is no erythema of the abdominal wall. Wound VAC is intact. The colostomy has a small amount of brown stool in the appliance. LABORATORIES: White count is 14.8, hematocrit 25.2, platelets 354, creatinine 0.53. Glucose 106, bilirubin 0.4. AST 26, ALT 14, alkaline phosphatase 443. Albumin 1.7. Procalcitonin 3.91. ASSESSMENT AND PLAN: A 71-year-old man with a history of perforated sigmoid diverticulitis with feculent peritonitis status post Diallo's procedure, readmitted with septic shock of unclear etiology. I have reviewed his images again with Dr. Alcides Quick from Interventional Radiology yesterday with a question of a benefit of a cholecystostomy tube. Cholecystostomy tube is not indicated as his gallbladder does fill on the HIDA scan and does empty some, albeit poorly. His cystic duct is not obstructed so cholecystostomy tube would not be beneficial. His last CT scan was without contrast and so after discussion today with Dr. Lion Martínez, we will get a repeat CT of the abdomen and pelvis with oral and IV contrast to see if there are any organized fluid collections within the abdomen.
[2017-04-26] MEDS: 0.9% Sodium Chloride 250 ML IV SCH ×2 (15:25→18:00)
--- NOTE | 2017-04-26 16:57 | DRSVH ---
PROCEDURE: CT ABDOMEN AND PELVIS WITH CONTRAST ([id number]) INDICATIONS: sepsis. possible galbladder path? oral/iv contrast TECHNIQUE: After the administration of oral and intravenous contrast, 5 mm thick sections acquired from the diap hragms to the symphysis. 5 mm thick coronal and sagittal reformats were performed. For radiation do se reduction, the following was used: automated exposure control, adjustment of mA and/or kV accordi ng to patient size. COMPARISON: Merged With [facility], CT, CT ABD PELVIS W CON, 04/21/2017, 14:53. FINDINGS: Image quality: Excellent. ABDOMEN: Lung bases: Small bilateral pleural effusions with adjacent atelectasis, which are increased since pr ior study dated 04/21/07. Coronary artery calcifications. Solid organs: Liver and spleen are normal in size and enhancement. Gallbladder contains a pair of 1 cm gallstones. No definite gallbladder wall thickening.. Biliary system is non-dilated. Pancreas e nhances normally. No adrenal nodules. Right kidney absent. Left kidney is unremarkable. No hydroneph rosis. Peritoneum and bowel: Post surgical changes are again noted, with left lower quadrant colostomy. The stomach is moderately distended. There are now scattered dilated small bowel loops with scattered air -fluid levels, measuring up to 4.3 cm. No definite free air. There is perihepatic and perisplenic michael e fluid. There is also fluid in the right lower quadrant. No discrete abscess identified. There is il l-defined pelvic stranding which may be postoperative although technically nonspecific. No definite f ree air seen. Nodes and vessels: No retroperitoneal or mesenteric adenopathy. Aorta and inferior vena cava are no rmal in caliber. Miscellaneous: No ventral hernias. PELVIS: Genitourinary: Bladder wall thickness is normal. Miscellaneous: No inguinal hernias or adenopathy. Bones: No suspicious bony lesions. Redemonstration of L1 compression fracture IMPRESSION: Moderately distended stomach, and scattered dilated small bowel loops with air-fluid levels have deve loped since 04/21/17. Findings are suspicious for developing bowel obstruction. Exact transition point is not well seen although the remaining colon appears decompressed. Differential includes adynamic il eus. Please correlate clinically and as needed continued surveillance with abdominal series radiograp hs could be performed if the patient's symptoms do not improve Increasing diffuse perihepatic and perisplenic abdominal ascites since the prior study. No definite a bscess seen Interval increase in small bilateral pleural effusions. Cholelithiasis although no definite gallbladder wall thickening or bile duct dilatation to suggest ac master cholecystitis. Dictated by: Marino Valente M.D. on 04/26/2017 at 15:24 Approved by: Marino Valente M.D. on 04/26/2017 at 15:56
--- NOTE | 2017-04-26 18:01 | PCM.PNMED ---
Subjective Date of Service Apr 26, 2017 Subjective Patient is a 71-year-old male with a medical history significant for diverticular disease with intra-abdominal abscess status post partial colectomy resent with florid sepsis, source possible gallbladder versus intra-abdominal, improving on a combination of Zosyn, Levaquin, and micafungin. Patient without any overnight events. He passed stool. No reports of delirium. Today, patient reports that he is feeling stronger. Denies any nausea vomiting abdominal pain, shortness of breath or chest pain. Exam Vital Signs Vital Sign - Last Date Time Temp Pulse Resp B/P Pulse Ox O2 Delivery O2 Flow Rate FiO2 04/26/17 16:21 36.6 107 20 154/93 95 Room Air 04/24/17 16:46 2.00 Intake and Output 04/25/17 04/25/17 04/26/17 Cumulative From/Thru 15:00 23:00 07:00 04/21/17 10:44 - 04/26/17 06:39 Intake Total 645 ml 1069 ml 87881 ml Output Total 15 ml 350 ml 225 ml 5655 ml Balance -15 ml 295 ml 844 ml 9996 ml Intake Oral 0 ml 60 ml 610 ml IV Total 645 ml 1009 ml 60249 ml Packed Cells 301 ml Output Urine Total 350 ml 225 ml 5305 ml Stool Total 330 ml Emesis 15 ml 15 ml Drainage Total 5 ml # Voids 6 Exam General: No acute distress, mild confused, chronically sick, fragile HEENT: Normocephalic, atraumatic. PERRLA, EOMI, Anicteric sclerae Neck: No JVD, No bruits. No lymphadenopathy or thyromegaly. Cardiovascular: Regular rate and rhythm with no murmurs, rubs, or gallops appreciated Pulmonary: Bilateral air sound, coarse breathing, no wheezes Abdomen: +Bowel sound, Soft, mildly tender, nondistended. Wound VAC in place, colostomy type without redness or tenderness. : no patterson. Extremities: No clubbing or cyanosis, no lymphedema, no b/l lower leg edema Skin: Normal temperature, turgor, and texture; no rash. No visualized skin ulcer. Neurological: CN II-VII grossly intact, moving equally on all 4 extremities Psychiatric: AOx2, not orient in time. IVs and Medications IV Fluids Normal saline at 90 mL an hour Medications Reviewed: Medications were reviewed in detail Lab and Diagnostics Result Diagram: 04/26/17 0442 04/26/17 1053 Microbiology Blood cultures pending X-Rays, CTs and MRIs . X-RAY CHEST ONE VIEW, PORTABLE IMPRESSION: No acute cardiopulmonary disease. Dictated by: Darius Molina M.D. on 04/21/2017 X-RAY PICC LINE PLACEMENT BY NURSE IMPRESSION: Tip of PICC lies within the lower superior vena cava. Dictated by: Darius Molina M.D. on 04/21/2017 CT ANGIO CHEST PULMONARY EMBOLISM IMPRESSION: 1. No large pulmonary emboli. Respiratory motion artifact limits evaluation for small emboli. 2. Mild bronchial wall thickening within the bilateral infrahilar regions ( left greater than right) may represent bronchitis. 3. New/Increasing right middle lobe ground glass nodules. A three-month followup CT of the chest is recommended with contrast. 4. No lymphadenopathy within the chest. 5. 1.3 cm hypodense left thyroid nodule. Please consider a thyroid ultrasound for further evaluation Dictated by: Tarik Roe M.D. on 04/21/2017 CT ABDOMEN AND PELVIS WITH CONTRAST IMPRESSION: 1. Interval postoperative changes of the bowel with a left lower quadrant colostomy. No bowel obstruction. 2. Mild ascites and moderate mesenteric edema probably is related to interval surgery. No drainable fluid collection or definable abscess is evident. 3. Mild prominence of the vieyra of multiple loops of bowel is nonspecific. However, this appearance may be related to colitis or enteritis and clinical correlation is recommended. 4. Fluid within the rectal stump probably is within normal limits. Other: -Absent right kidney and adrenal gland. -Cholelithiasis. -Hepatic steatosis. -Pancreatic lesion is not well evaluated on this exam. -Unusual appearance of an L1 compression fracture may be related to chronic sclerosis. However, a pathologic compression fracture related to metastatic lesion is difficult to exclude. Dictated by: Tarik Roe M.D. on 04/21/2017 Additional Diagnostics DateTimeAnalyzed 14:02:00 -_ pH ____7.474 - 7.350 7.450 pCO2 ___27.7__ -mmHg 35.0 45.0 pO2 107 -mmHg 69.0 116 HCO3- ___20.1__ -mmol/L 22.0 26.0 ABE ___-2.7__ -mmol/L -2.0 2.0 tHb ____7.0__ -g/dL 12.0 18.0 O2Hb ___96.2__ -% COHb ____1.6__ -% 0.0 1.5 MetHb ____0.5__ -% 0.4 1.5 sO2 ___98.3__ -% 25.0 FIO2 ___32.0__ -% Drawn By as - Date/Time Notified____ 14:08:00 -_ Spontaneous_RR ___26.0__ -b/min Liter_Flow ____3.0__ -L/min Oxygen Device 1 __CANNULA - Notified By AMS - Notified Whom DR OKELLY - B 756 -mmHg tO2 ____9.7__ -Vol% Lion test _Positive - Assessment & Plan 71 year old gentleman with recent history of sigmoid colectomy and descending colostomy secondary to perforated diverticulitis causing abscess, a history of CAD with 2 stents, COPD, hyperlipidemia, and right-sided renal cell carcinoma (s /p nephrectomy in October 2016) admitted for severe sepsis, with bandemia, lactic acidosis, anemia, elevated troponin Septic shock, present on admission. Resolving -lactic acid 7.8, tachypneic, tachycardic, leukocytosis with presumed source of abdominal infection, and AMS requiring brief pressor support. -Possible gallbladder disease given enlargement with stones with elevated LFT , HIDA positive for reduce ejection fraction system with chronic cholecystitis. -No intervention per IR/surgery -broad spec abx on board and continues -Continue tachycardic, tachypneic, leukocytosis, significantly improved since admission Acute intraabdominal inflammation and infection, present on admission. -recent ruptured diverticular s/p sigmoid colectomy and colostomy (03/24-04/19) -Surgery has been consulted and following -Recommend optimize medical management -Wound VAC in place, reported to have been changed on day of admission. -Cultures, viral PCR have been negative thus far. -Infectious Disease Dr. Lozoya consulted -Continue Levaquin, Zosyn and micafungin. D/C daptomycin given the negative VRE/MRSA -Procalcitonin falls ~1/2 daily Possible small bowel obstruction, not present on admission, new, active -Dilated small bowel with air-fluid level on CT abdomen and pelvis -Positive bowel sounds, passing gas and small amount of stool. -Multifactorial: Likely opiate use and sepsis -Conservative management -NG tube suctioning with nausea vomiting Transaminitis, POA, acute. Active Patient has had high normal Alk Phosm 915, prior to discharge 04/17/2017 alkaline phosphatase 1181. AST mildly elevated -Ultrasound of the abdomen 04/07/2017 (last admission) shows a prominent gallbladder (4.2 mm), HIDA scan & MRCP 04/05 clear -HIDA scan obtained on 04/05 shows no evidence of acute cholecystitis. Results as above -IR recommends no additional imaging studies at this point -monitor Delirium, not present on admission, active -wax-wane mentation -Seroquel 25mg nightly Severe protein malnutrition, present on admission, active -2nd to recent major surgery, poor po intake -prealbumin 3, albumin 1.7 Normocytic anemia, present on admission, stable. -Hemoglobin 9.2 on admit prior to fluid administration, and globin Route level approximately 7.5 average during last admission -Consider transfusion if patient remains less than 7.0 -Continue to monitor COPD, present on admission, stable -O2 support as needed -Duoneb prn Stable, resolving and/or chronic problems: Coronary artery disease, chronic. Present on admission. stable. -History of prior [place] requiring two stents. -Hold home statin secondary to elevated LFTs -Hold home meds Renal cell carcinoma of right kidney, chronic. Presumed stable. -Pt is s/p nephrectomy in October 2016, previously treated with Pazopanib and dexamethasone. -Per recommendations of oncology from prior admission Pazopanib and dexamethasone may be held for 4-6 weeks while patient stabilizes. -CT abd/pelvis renal cyst as above -Hold home meds -Follow up with Oncology as outpatient in 1-2 weeks to deterimine when to resume Pazopanib and dexamethasone. Elevated troponins. Unknown significance. Continue to monitor -EKG showed sinus tachycardia with an old inferior infarct -Initial troponin elevated 0.045 trended down -stressed induced Respiratory alkalosis with metabolic acidosis. Present on admission. resolved. -2nd to sepsis, lactic acid Acute Encephalopathy, present on admission, resolved -Improving as of day 1 -Continue to monitor Hypertension, chronic. Not present on admission. Ongoing -Currently hypotensive, requiring blood pressure support -Hold home meds Diabetes mellitus, type 2, chronic. Present on admission. Presumed stable. -A1c 5.6 -blood glucose low 100' Disposition: Patient will likely be inpatient for the next several days back to [facility] as we continue to treat his underlining infection. GI Prophylaxis: H2 saw VTE Prophylaxis: Sub-Q Heparin (Unfractionated) VTE Mechanical Devices: Intermittant Pneumatic CD Resuscitation Status: CPR: Attempt Resuscitation Attending Statement The patient was seen and examined together with on 913 and I agree with the history, exam findings, and plan as outlined in the note above. I did participate in all aspects of the services provided today, including documentation and the plan of care. Continue to treat this patient with peritonitis and probable diverticulitis with IV antibiotics. CT scan to rule out interval progression of fluid collection or formation of fluid collection was obtained and is pending at this point. Leandro Contreras DO Apr 26, 2017 18:01 Lion Martínez MD Apr 27, 2017 15:21
[2017-04-26] MEDS: levoFLOXacin Inj 750 MG in IV Premix 1 EACH IV SCH (18:22)
--- NOTE | 2017-04-26 19:43 | NUR ---
Tachycardia Pt. had a coughing fit this afternoon and HR increased to 160 and sustained for about 15 minutes. Other vitals stable, and pt. denied symptoms. MD notified and HR soon returned to normal. This happened again later in the afternoon, although pt. was resting in bed. Again, pt. denied symptoms and it soon returned to baseline. Will continue to monitor.
[2017-04-26] MEDS: Micafungin Inj 150 MG in 0.9% Sodium Chloride 100 ML IV SCH (21:27)
[2017-04-27] VITALS (11 sets, daily range): BP systolic 123–138; BP diastolic 77–88; PULSE 95–156; RESP 20–24; O2SAT 93–96
[2017-04-27] MEDS: Sodium Chloride LOK Flush 10 mL Syringe IVFLUSH SCH ×3 (00:55→16:04)
[2017-04-27] MEDS: 0.9% Sodium Chloride 1,000 ML IV SCH ×3 (03:48→17:49)
--- NOTE | 2017-04-27 04:45 | NUR ---
Tach/shift summary Sinus tach 150's observed at 0330, sustained for 15 min. Pt denies chest pain/dizziness, all other VSS. Dr. Tomlin notified, plan to give IVP dilt if tach episode occurs again. Urine output improving, 510 cc this shift. Approx 15 cc dark brown/green liquid stool and small amount of flatus noted in colostomy bag. Pt denies nausea, no emesis. Addendum: 04/27/17 at 0646 by CAROLINA ARZATE RN Approx 1.5 min sustained sinus tach 150's at 0635. Pt asymptomatic. Dr. Tomlin notified, will pass on to day team.
[2017-04-27] MEDS: Piperacillin-Tazo 3.375 Gm Inj 3.375 GM in Dextrose 5% Minibag Plus 50 ML IV SCH ×3 (05:36→23:13)
--- NOTE | 2017-04-27 08:14 | PROG NOTE ---
[address] [address] PROGRESS NOTE PATIENT: JOSAFAT SOLIS : 1945 MR#: [id number] ADMIT: 04/21/2017 JOB ID: [id number] DATE: 04/27/2017 SUBJECTIVE: The patient is seen in follow up. He did have an event overnight of a run of heart rate to 150. Apparently that converted without intervention. He has not had chest pain or shortness of breath. Today, he denies abdominal pain, nausea. He is hungry. OBJECTIVE: Temperature 36.7, pulse 106, blood pressure 124/77, saturation 94% on room air. In general, he is resting in bed in no acute distress. His abdomen is mildly distended, but soft. Tenderness in the right abdomen is improved. Midline wound has a wound VAC. The colostomy in the left abdomen has some soft greenish-brown stool. Labs are pending. ASSESSMENT AND PLAN: A 71-year-old man with perforated sigmoid diverticulitis status post Diallo's procedure, readmitted with septic shock, improved. Repeat CT of the abdomen and pelvis yesterday showed no evidence of intraabdominal abscess. It did show some dilated small bowel loops with air-fluid levels, no free air. There was no gallbladder wall thickening or pericholecystic fluid. There was increased ascites and pleural effusions. I do not see any indication for surgical intervention. It is fairly clear at this point, that his gallbladder and does not need to be addressed at this time. Trend of his labs indicate that he is getting better. I do not think he has a bowel obstruction as he is having colostomy output. However, his nutritional parameters are poor, and I think that TPN needs to be considered.
[2017-04-27] MEDS: Famotidine Inj 20 MG in IV Premix 1 EACH IV SCH ×2 (09:18→20:11)
[2017-04-27 09:52] LABS: BASOPHILS % (AUTO) 0.3 % (0-3); Mean Corpuscular Hemoglobin 29.1 pg (27.0-35.0); Mean Corpuscular Volume 94.5 fL (81-100); Platelet Count 369 bil/L (150-400)
[2017-04-27 10:01] LABS: EOSINOPHILS % (AUTO) 2.4 % (0-5); MONOCYTES % (AUTO) 5.1 % (4-12); NEUTROPHILS % (AUTO) 80.4 % (40-74)
--- NOTE | 2017-04-27 11:46 | PROG NOTE ---
[address] [address] PROGRESS NOTE PATIENT: JOSAFAT SOLIS : 1945 MR#: [id number] ADMIT: 04/21/2017 JOB ID: [id number] DATE: 04/27/2017 INFECTIOUS DISEASE FOLLOWUP NOTE: REASON FOR FOLLOWUP: Right-sided abdominal pain with presumptive bacterial infection. INTERVAL HISTORY: This morning the patient is a little bit less oriented and is really only oriented x1. He denies fevers, chills, cough, or significant abdominal pain. He is getting a liquid diet and wishes he could have a solid diet and I conveyed this to the hospitalist. PHYSICAL EXAMINATION: Reveals an afebrile confused gentleman in no acute distress. Temp 36.6, pulse 115, respiratory rate 22, blood pressure 126/85. He is saturating well on room air. Examination of the head reveals no trauma. His oral mucous membranes are dry. His lungs relatively clear. Cardiac tones no change. Abdomen without any right-sided tenderness at this point. His colostomy seems to be functioning. LABORATORIES: Include a white count of 15,000, 80% segs. Creatinine 0.56. Alk phos going up again, it is now 580. AST and ALT are normal. Procalcitonin continues to fall. His procalcitonin was 40 five days ago and then it dropped to 24, 13, 7, 4, and now 2, suggesting treatment of a bacterial process. Micro studies remain essentially negative. We had a single blood culture which grew lactobacillus. In and of itself this is almost certainly a contaminant. IMAGING: An abdominal CT scan was done yesterday which shows a distended stomach and some dilated small-bowel loops. There was concern that this may be related to a developing bowel obstruction though a transition point is not seen. There is also some increasing perihepatic and perisplenic ascites and some small pleural effusions. Cholelithiasis is seen, but no definite evidence on his CT for cholecystitis, though of course CT is not very good for cholecystitis. IMPRESSION: The continued drop in the patient's procalcitonin suggests that we are treating an intra-abdominal process and I would continue with our broad-spectrum antibiotics at this point. Of greater concern is the cause of his ileus and/or obstruction. This patient is being closely followed by surgery and I will continue to follow along as well, but I think our antibiotics can be ended in the next few days. RECOMMENDATIONS: 1. This case discussed with the team caring for the patient. 2. Will continue with broad-spectrum antibiotics at this point, as we carefully follow procalcitonin and white blood count. Thank you very much.
--- NOTE | 2017-04-27 14:46 | NUR ---
NUTRITION FOLLOW-UP: ASSESS: Pt is a 71yo M admitted for severe sepsis. Pt was recently discharged from [facility] for abdominal abscess secondary to ruptured diverticula requiring sigmoid colectomy and colostomy. Pt required TPN during last admit. Surgery and ID are following. Pt has been on a CL diet x6 days with poor PO intake. Per MD, pt will likely require TF to better meet kcal/pro needs. There is concern that pt has an ileus so it would be best for TF to run at trophic rate to monitor GI function/TF tolerance. PMHx: CAD, COPD, renal cell carcinoma of right kidney s/p nephrectomy in October 2016, type II diabetes, HTN, dyslipidemia, heartburn, hiatal hernia, GI bleed, sigmoid colectomy with descending colostomy 03/24/2017. DIET: CL, PO 25% LABS: Reviewed. Imaging Technician .56, Ca 7.4, alk phos 580, alb 1.8 MEDICATIONS: Reviewed. Zofran, GI symptoms / stool: colostomy, minimal output recorded Skin Integrity: wound vac intact on abdomen ANTHROPOMETRICS: Current Wt: 86.5kg BMI: 24.5kg/m2, admit wt 80.5kg IBW: 86.3 kg, UBW: 92kg, 6.5% wt loss x1 month ESTIMATED NEEDS: healing Calories: 0361-1342 kcal (25 - 30 kcal / kg BW) Protein: 105-130g protein (1.2-1.5 g / kg BW) Fluids: ~2165-2595ml/day (25-30ml/kg) NUTRITION DIAGNOSIS: 1) Inadequate oral intake related altered gi function as evidence by pt requiring CL diet/NPO diet order and PO 25% x2 meals.-- PERSISTS 2) Severe pro/kcal malnutrition in the context of acute illness as evidence by altered gi function as evidence by PO intake of <50% of estimated energy requirements for >5days, 6.5% wt loss x1 month INTERVENTION: 1) Recommend advance diet when medically appropriate 2) Continue current supplements with CL diet. 3) If GI tract is functional, recommend NGT be placed and trophic TF of Vital 1.5 be started at 10ml/hr. Unsigned TF orders have been placed in pts chart and RN is aware. 4) If trophic TF is tolerated, recommend advance TF by 10ml q 8 hrs until reach goal rate of 65ml/hr to provide 2242kcal and 101g pro (100% kcal and 95% pro needs). Adjust goal rate based on PO intake. 5) If GI tract is not functional, recommend TPN be considered MONITOR/EVALUATE: PO, diet advance, TF start? gi, labs, weight, and nutrition status. Follow up per high nutrition risk guidelines.
[2017-04-27] MEDS: 0.9% Sodium Chloride 250 ML IV SCH ×2 (15:25→17:49)
--- NOTE | 2017-04-27 16:39 | NUR ---
Sinus Tachycardia Sinus Tachycardia (ST) - In total today from about 0640 till now (1638) he has gone into sinus tachycardia six times. Each episode is self limiting and varies in length from 1 to 25 minutes. He has been asymptomatic. 808 - Paged [facility] hospitalist. Dr. Mcmahan called back for Dr. Martínez and was informed of his ST. He said to obtain his vitals and then he would stop by to check on the situation. 839 - Notified Dr. Mcmahan of his vitals. No new orders. 929 - Discussed his care with Dr. Martínez and the rest of the multidisciplinary care team during morning rounds. Notified Dr. Martínez of his ST. He said he would look into ordering him something. 1324 - Noted that no cardiac medications had been ordered for him yet. Spoke to Dr. Martínez who said he would order some by mouth Diltiazem for him. It was given to the patient, but he still experienced some ST episodes. Dr. Martínez notified later in the day. 1445 - Spoke to Orion from Physical Therapy who said he tried to work with the patient. He almost sat him up, but he complained of abdominal pain and wanted to lay down again. Care continues. Addendum: 04/27/17 at 1734 by NABOR GONCALVES RN 1730 - Dr. Contreras was updated on his ST status.
--- NOTE | 2017-04-27 16:43 | NUR ---
Social Work: Continued Discharge Planning/Multidisciplinary Rounds D: Pt discussed in multidisciplinary rounds. The patient is still not medically stable for discharge and will require several more days of hospitalization. CM order placed to coordinate with SNF. TELEVISION PARTS TESTER confirmed with patient's , Augustina that her preference is to return to [facility]. TELEVISION PARTS TESTER spoke with Kelsea Staples, bass singer at [facility]. She states that they can accept the patient with Dr. Parmar to follow. She is requesting access. TELEVISION PARTS TESTER provided her with access. PPW on chart. A: Pt who will require skilled rehab at discharge. P: Anticipate pt to discharge back to [facility] once medically stable; TELEVISION PARTS TESTER to continue to follow to assess for unmet needs. [facility]
--- NOTE | 2017-04-27 17:41 | PCM.PNMED ---
Subjective Date of Service Apr 27, 2017 Subjective Overnights, patient had a short run of sinus tachycardia, asymptomatic skin in an otherwise uneventful night. Pt had light stool output with positive bowel sounds. No fevers. No reports of hallucination. Patient denies any abdominal pain, nor does he complains of any shortness of breath, coughing. Exam Vital Signs Vital Sign - Last Date Time Temp Pulse Resp B/P Pulse Ox O2 Delivery O2 Flow Rate FiO2 04/27/17 16:44 36.7 103 20 134/88 93 Room Air 04/24/17 16:46 2.00 Intake and Output 04/26/17 04/26/17 04/27/17 Cumulative From/Thru 15:00 23:00 07:00 04/21/17 10:44 - 04/27/17 06:25 Intake Total 2104 ml 1405 ml 05265 ml Output Total 250 ml 560 ml 6465 ml Balance 1854 ml 845 ml 27491 ml Intake Oral 660 ml 180 ml 1450 ml IV Total 1444 ml 1225 ml 82914 ml Packed Cells 301 ml Output Urine Total 250 ml 560 ml 6115 ml Stool Total 330 ml Emesis 15 ml Drainage Total 5 ml # Voids 1 1 8 Exam General: No acute distress, quiet spoken HEENT: Normocephalic, atraumatic. PERRLA, EOMI, Anicteric sclerae, moist conjunctivae. Neck: No JVD, No bruits. No lymphadenopathy or thyromegaly. Cardiovascular: Tachycardic, regular rhythm, no murmur or gallop noted Pulmonary: b/l air sound with no crackles, wheezes, or rhonchi. no use of accessory muscles. Abdomen: +Bowel sound, Soft, nontender, green liquid stool output on colostomy, incision site/wound VAC in place nonerythematous Extremities: No clubbing or cyanosis, no lymphedema, no b/l lower leg edema Skin: Normal temperature, turgor, and texture; no rash. No visualized skin ulcer. Neurological: CN II-VII grossly intact, moving equally on all 4 extremities Lab and Diagnostics Result Diagram: 04/27/1794604/27/17946 Microbiology Blood cultures pending X-Rays, CTs and MRIs . X-RAY CHEST ONE VIEW, PORTABLE IMPRESSION: No acute cardiopulmonary disease. Dictated by: Darius Molina M.D. on 04/21/2017 X-RAY PICC LINE PLACEMENT BY NURSE IMPRESSION: Tip of PICC lies within the lower superior vena cava. Dictated by: Darius Molina M.D. on 04/21/2017 CT ANGIO CHEST PULMONARY EMBOLISM IMPRESSION: 1. No large pulmonary emboli. Respiratory motion artifact limits evaluation for small emboli. 2. Mild bronchial wall thickening within the bilateral infrahilar regions ( left greater than right) may represent bronchitis. 3. New/Increasing right middle lobe ground glass nodules. A three-month followup CT of the chest is recommended with contrast. 4. No lymphadenopathy within the chest. 5. 1.3 cm hypodense left thyroid nodule. Please consider a thyroid ultrasound for further evaluation Dictated by: Tarik Roe M.D. on 04/21/2017 CT ABDOMEN AND PELVIS WITH CONTRAST IMPRESSION: 1. Interval postoperative changes of the bowel with a left lower quadrant colostomy. No bowel obstruction. 2. Mild ascites and moderate mesenteric edema probably is related to interval surgery. No drainable fluid collection or definable abscess is evident. 3. Mild prominence of the vieyra of multiple loops of bowel is nonspecific. However, this appearance may be related to colitis or enteritis and clinical correlation is recommended. 4. Fluid within the rectal stump probably is within normal limits. Other: -Absent right kidney and adrenal gland. -Cholelithiasis. -Hepatic steatosis. -Pancreatic lesion is not well evaluated on this exam. -Unusual appearance of an L1 compression fracture may be related to chronic sclerosis. However, a pathologic compression fracture related to metastatic lesion is difficult to exclude. Dictated by: Tarik Roe M.D. on 04/21/2017 Additional Diagnostics DateTimeAnalyzed 14:02:00 -_ pH ____7.474 - 7.350 7.450 pCO2 ___27.7__ -mmHg 35.0 45.0 pO2 107 -mmHg 69.0 116 HCO3- ___20.1__ -mmol/L 22.0 26.0 ABE ___-2.7__ -mmol/L -2.0 2.0 tHb ____7.0__ -g/dL 12.0 18.0 O2Hb ___96.2__ -% COHb ____1.6__ -% 0.0 1.5 MetHb ____0.5__ -% 0.4 1.5 sO2 ___98.3__ -% 25.0 FIO2 ___32.0__ -% Drawn By as - Date/Time Notified____ 14:08:00 -_ Spontaneous_RR ___26.0__ -b/min Liter_Flow ____3.0__ -L/min Oxygen Device 1 __CANNULA - Notified By AMS - Notified Whom DR JOHNSON - B 756 -mmHg tO2 ____9.7__ -Vol% Lion test _Positive - Assessment & Plan Patient is a 71-year-old male with a recent history of partial colectomy secondary to intra-abdominal abscess, diverticular disease readmission for septic shock, currently improving on antibiotics. Acute intraabdominal inflammation and infection, present on admission. -recent ruptured diverticular s/p sigmoid colectomy and colostomy (03/24-04/19) -Wound VAC in place, reported to have been changed on day of admission. -Cultures, viral PCR have been negative thus far. -Infectious Disease Dr. Lozoya consulted -Continue Levaquin, Zosyn and micafungin. D/C daptomycin given the negative VRE /MRSA -Procalcitonin falls ~1/2 daily -Surgery has been consulted and following -Recommend optimize medical management, concern for malnutrition, possible TPN Severe protein malnutrition, present on admission, active -2nd to recent major surgery, poor po intake -prealbumin 3, albumin 1.7 -We will consider NG tube placement with tube feeds tomorrow -Monitor stool output Abdominal pain -Likely surgical wound, intra-abdominal infection, possible ileus, possible small bowel obstruction -Dilated small bowel with air-fluid level on CT abdomen and pelvis -Positive bowel sounds, passing gas and small amount of stool. -Conservative management -Clear liquid diet -Hydrate with NS 90 mL/h total Sinus tachycardia -Etiology unknown, possible sepsis -Cardizem 30 mg 3 times a day -EKG with runs of tachycardia Septic shock, present on admission. Resolving -lactic acid 7.8, tachypneic, tachycardic, leukocytosis with presumed source of abdominal infection, and AMS requiring brief pressor support. -Possible gallbladder disease given enlargement with stones with elevated LFT , HIDA positive for reduce ejection fraction system with chronic cholecystitis. -No intervention per IR/surgery -broad spec abx on board and continues -Continue tachycardic, tachypneic, leukocytosis, significantly improved since admission Delirium, not present on admission, active -wax-wane mentation -Seroquel 25mg nightly Transaminitis, POA, acute. Active Patient has had high normal Alk Phosm 915, prior to discharge 04/17/2017 alkaline phosphatase 1181. AST mildly elevated -Ultrasound of the abdomen 04/07/2017 (last admission) shows a prominent gallbladder (4.2 mm), HIDA scan & MRCP 04/05 clear -HIDA scan obtained on 04/05 shows no evidence of acute cholecystitis. Results as above -IR recommends no additional imaging studies at this point -monitor Stable, resolving and/or chronic problems: Normocytic anemia, present on admission, stable. -Hemoglobin 9.2 on admit prior to fluid administration, and globin Route level approximately 7.5 average during last admission -Consider transfusion if patient remains less than 7.0 -Continue to monitor COPD, present on admission, stable -O2 support as needed -Duoneb prn Coronary artery disease, chronic. Present on admission. stable. -History of prior AL requiring two stents. -Hold home statin secondary to elevated LFTs -Hold home meds Renal cell carcinoma of right kidney, chronic. Presumed stable. -Pt is s/p nephrectomy in October 2016, previously treated with Pazopanib and dexamethasone. -Per recommendations of oncology from prior admission Pazopanib and dexamethasone may be held for 4-6 weeks while patient stabilizes. -CT abd/pelvis renal cyst as above -Hold home meds -Follow up with Oncology as outpatient in 1-2 weeks to deterimine when to resume Pazopanib and dexamethasone. Elevated troponins. Unknown significance. Continue to monitor -EKG showed sinus tachycardia with an old inferior infarct -Initial troponin elevated 0.045 trended down -stressed induced Respiratory alkalosis with metabolic acidosis. Present on admission. resolved. -2nd to sepsis, lactic acid Acute Encephalopathy, present on admission, resolved -Improving as of day 1 -Continue to monitor Hypertension, chronic. Not present on admission. Ongoing -Currently hypotensive, requiring blood pressure support -Hold home meds Diabetes mellitus, type 2, chronic. Present on admission. Presumed stable. -A1c 5.6 -blood glucose low 100' Disposition: Patient will likely be inpatient for the next several days back to [facility] as we continue to treat his underlining infection. GI Prophylaxis: H2 saw VTE Prophylaxis: Sub-Q Heparin (Unfractionated) VTE Mechanical Devices: Intermittant Pneumatic CD Resuscitation Status: CPR: Attempt Resuscitation Attending Statement The patient was seen and examined together with on April 27 and I agree with the history, exam findings, and plan as outlined in the note above. I did participate in all aspects of the services provided today, including documentation and the plan of care. This patient continues to suffer from intra-abdominal inflammation associated with diverticulitis and now a secondary ileus. We will continue to support him with antibiotics and discuss the possibility of tube feeds a slow rate with general surgery versus parenteral feeding. Leandro Contreras DO Apr 27, 2017 17:41 Lion Martínez MD Apr 28, 2017 08:32
[2017-04-27] MEDS: levoFLOXacin Inj 750 MG in IV Premix 1 EACH IV SCH (17:49)
[2017-04-27] MEDS: oxyCODONE-Acetamin 5-325 mg Tablet PO PRN (17:49)
[2017-04-27] MEDS: Micafungin Inj 150 MG in 0.9% Sodium Chloride 100 ML IV SCH (20:11)
[2017-04-28] VITALS (9 sets, daily range): BP systolic 110–133; BP diastolic 70–80; PULSE 91–102; RESP 16–22; O2SAT 93–96
[2017-04-28] MEDS: Sodium Chloride LOK Flush 10 mL Syringe IVFLUSH SCH ×4 (00:30→23:49)
[2017-04-28 04:36] LABS: Mean Corpuscular Hemoglobin 28.8 pg (27.0-35.0); Mean Corpuscular Volume 94.5 fL (81-100); Platelet Count 318 bil/L (150-400)
[2017-04-28 04:58] LABS: BASOPHILS % (AUTO) 0 % (0-3); EOSINOPHILS % (AUTO) 3 % (0-5); MONOCYTES % (AUTO) 5 % (4-12); NEUTROPHILS % (AUTO) 73 % (40-74)
--- NOTE | 2017-04-28 05:13 | NUR ---
Shift summary No episodes of sinus tach noted this shift, PO dilt given, no adverse effects noted. Pt denies pain/discomfort. Refused any PO intake besides small sips at [facility]. 200 cc odalys urine output. ~100 dark green liquid stool from colostomy with a small amount of flatus. Slept several hours tonight.
[2017-04-28 05:20] LABS: Magnesium 1.5 mg/dL (1.6-2.6)
[2017-04-28] MEDS: Piperacillin-Tazo 3.375 Gm Inj 3.375 GM in Dextrose 5% Minibag Plus 50 ML IV SCH ×3 (05:51→22:53)
[2017-04-28] MEDS ORDERED: KCl 40 mEq/100 mL Premix (K 3 - 3.7 & Creat < 2) IV ONE (05:55)
[2017-04-28] MEDS ORDERED: Magnesium Sulf 4 Gm/100 mL H2O 4 GM in IV Premix 1 EACH IV ONE (07:00)
[2017-04-28] MEDS: Famotidine Inj 20 MG in IV Premix 1 EACH IV SCH (08:40)
[2017-04-28] MEDS ORDERED: TPN Per Pharmacist XX ONE (08:40)
[2017-04-28] MEDS: 0.9% Sodium Chloride 1,000 ML IV SCH ×2 (08:50→20:51)
--- NOTE | 2017-04-28 10:28 | NUR ---
NUTRITION FOLLOW-UP: ASSESS: Pt is a 71yo M admitted for severe sepsis. Pt was recently discharged from [facility] for abdominal abscess secondary to ruptured diverticula requiring sigmoid colectomy and colostomy. Pt required TPN during last admit but did not tolerate it well with elevated liver labs. Surgery and ID are following. Pt has been on a CL diet x6 days with poor PO intake as he does not like the clear liquids. Pts diet has been advanced to Full Liquid today and TPN has been ordered. Pts wt is up 15kg from admit. A paracentesis has been ordered due to ascites. PMHx: CAD, COPD, renal cell carcinoma of right kidney s/p nephrectomy in October 2016, type II diabetes, HTN, dyslipidemia, heartburn, hiatal hernia, GI bleed, sigmoid colectomy with descending colostomy 03/24/2017. DIET: Full Liquid LABS: Reviewed. K 3.2, Bun 7, lap regulator .48, glu 130, Ca 7.3, mg 1.5, Alk phos 513, Alb 1.5 MEDICATIONS: Reviewed. Zofran, GI symptoms / stool: colostomy, minimal output recorded Skin Integrity: wound vac intact on abdomen ANTHROPOMETRICS: Current Wt: 95.7kg, BMI: 27.1kg/m2, admit wt 80.5kg IBW: 86.3 kg, UBW: 92kg, 6.5% wt loss x1 month ESTIMATED NEEDS: healing Calories: 8087-5785 kcal (25 - 30 kcal / kg BW) Protein: 105-130g protein (1.2-1.5 g / kg BW) Fluids: ~2165-2595ml/day (25-30ml/kg) NUTRITION DIAGNOSIS: 1) Inadequate oral intake related altered gi function as evidence by pt requiring CL diet/NPO diet order and PO 25% x2 meals.-- PERSISTS 2) Severe pro/kcal malnutrition in the context of acute illness as evidence by altered gi function as evidence by PO intake of <50% of estimated energy requirements for >5days, 6.5% wt loss x1 month--PERSISTS INTERVENTION: 1) Recommend advance diet when medically appropriate, will adjust supplements now that pts diet has been advanced to [place] 2) TPN has been ordered. Due to pts history of poor PO intake and history of TPN intolerance during last admit, recommend start TPN at 150g Dex, 50g AA and 10g lipids to provide 810kcal and 50g pro (~35% kcal and 50% pro needs). Recommend keep current TPN macronutrients x2-3 days to monitor tolerance. Pharmacy is aware. 3) If TPN is tolerated, recommend slowly increase macronutrients towards goal of 260g Dex, 105g AA and 20g lipids to provide 1505kcal and 105g pro (~70% kcal and 100% pro needs). Goal TPN meets 70% kcal needs due to pt on Full Liquid diet. 4) Will monitor PO intake and adjust goal rate accordingly. 5) Recommend monitor pts Liver labs closely. If labs trend up, recommend cycle lipids three days a week or possibly running TPN x12 hrs/day rather than 24hrs. Addendum: 04/28/17 at [address] MONITOR/EVALUATE: PO, diet advance, TPN jim, gi, labs, weight, and nutrition status. Follow up per high nutrition risk guidelines.
[2017-04-28] MEDS: TPN Per Pharmacist XX SCH (10:34)
--- NOTE | 2017-04-28 10:38 | PCM.CONPHA ---
Subjective Date of Service: Apr 28, 2017 TPN Reason for Pharmacy Consult: TPN Management Assessment/Plan Assessment/Plan A/ Patient was previously on TPN. Previously required cycling of lipids due to liver function response. Also required larger mag/phos/potassium repletion. Patient may or may not be taking full liquid diet while on TPN. P/ Conservatively start with macros due to previous problems with TPN. Moderate potassium/phos and mag with daily labs x3 days to determine needs. Admixture for tonight: PARENTERAL NUTRITION ORDERS 1 - Standard Hang Time: 2100 Substrates Total kcal: 810 AMINO ACIDS 50 g DEXTROSE 150 g Total Volume (mL): 1000 LIPIDS 10 g Sterile Water for Injection mL To Infuse Over (hrs): 24 Total Volume 1000 mL At at a rate of (mL/hr): 42 Additives Sodium Chloride 60 mEq "typical" daily requirements Sodium Acetate 20 mEq Sodium 50-120mEq Potassium Chloride 40 mEq Potassium 60-120mEq Potassium Phosphate 20 mEq Phosphate 20-40mEq Calcium Gluconate 9.3 mEq Magnesium 8-32mEq Magnesium Sulfate 16 mEq Calcium 9-22mEq Acetate* 80-120mEq Chloride* 80-120mEq Regular Insulin units *Depending on acid-base status Famotidine 40 mg Multivitamins 1 std dose Insulin Regimen Trace Elements 1 std dose none Thiamine mg Regular Low Intensity Subcut Folic Acid mg Regular Medium Intensity Subcut Ascorbic Acid mg Regular High Intensity Subcut Regular Insulin Infusion Other: Darrius Adams Apr 28, 2017 10:38
--- NOTE | 2017-04-28 11:06 | DRSVH ---
PROCEDURE: US ABDOMEN, LIMITED ([id number]) INDICATIONS: Sepsis TECHNIQUE: Real-time focused scanning was performed of the abdomen, with image documentation. COMPARISON: Located Within [facility], CT, CT ABD PELVIS W CON, 04/26/2017, 15:53. [facility], US, ABDOMEN LTD, 04/07/2017, 8:10. FINDINGS: Trace perihepatic and lower pelvis intra-abdominal fluid present with volume not sufficient for safe paracentesis. IMPRESSION: Trace ascites with volume not sufficient for paracentesis. Dictated by: Abiodun LINDSEY Interpreted: Bang Chung MD on 04/28/2017 at 10:26 Approved by: Bang Chung M.D. on 04/28/2017 at 11:04
--- NOTE | 2017-04-28 11:53 | PROG NOTE ---
[address] [address] PROGRESS NOTE PATIENT: JOSAFAT SOLIS : 1945 MR#: [id number] ADMIT: 04/21/2017 JOB ID: [id number] DATE: 04/28/2017 INFECTIOUS DISEASE FOLLOWUP NOTE: REASON FOR FOLLOWUP: Right-sided abdominal pain with markers consistent with serious bacterial infection. INTERVAL HISTORY: The patient this morning is slightly more awake and alert. He is telling me more about his growing up in [place] and subsequent move to the [facility]. His brothers arrived, who could basically confirm these historical facts. The patient does know where he is today as well and he tells me that the hospital is no place to sleep, which is of course very accurate. Aside from his troubled sleep, he has some minimal right-sided abdominal pain but no fevers, chills, or sweats. No significant pulmonary complaint. He has mild but improving right-sided abdominal pain. No appetite remains a major issue and the surgeons are considering starting TPN. PHYSICAL EXAMINATION: Temperature 36.4, pulse 102, respiratory rate 18, blood pressure 118/79. He is saturating well on room air. Examination of the oral cavity reveals dry mucous membranes. His lungs are relatively clear anteriorly. Cardiac tones without change. Minimal right-sided abdominal tenderness without change. His colostomy is functioning, though very low output. LABORATORIES: Include white blood count 14,200 with 2% metamyelocytes today. Creatinine is 0.48. LFTs basically normal, though his alk phos is 513. Albumin has dropped all the way to 1.5. Procalcitonin 1.53. Urinalysis: 6-10 white cells. His blood cultures one of four positive for lactobacillus. The remainder of his cultures basically negative. IMAGING: Most recent was a CT of the abdomen which showed some scattered dilated bowel loops. IMPRESSION: The dropping procalcitonin is indicative of a resolving bacterial infection. It is unclear to me exactly what was transpiring on the right side of the patient's abdomen at the time of his readmission but he seems to be much improved in terms of abdominal tenderness and biomarkers of infection. We have no positive cultures. The main problem here is nutrition. The patient is not eating much at all, has no appetite, and his albumin has dropped all the way to 1.5. RECOMMENDATIONS: 1. Will continue with our broad-spectrum antibiotics, at least through the weekend on this patient, and then we may consider stopping depending on his procalcitonin, white count, and other clinical parameters. 2. For now the antibiotics will include levofloxacin, micafungin, and Zosyn, which have been going for essentially a week each at this point. We may consider stopping these at about the 10 day angelique on Monday if his labs continue to improve. 3. I agree that the patient may need TPN or some more radical way to try and improve his nutrition. Thank you very much.
[2017-04-28] MEDS: oxyCODONE-Acetamin 5-325 mg Tablet PO PRN (12:30)
--- NOTE | 2017-04-28 14:32 | NUR ---
Inpatient Wound and Ostomy Nurse Patient seen for ostomy system change and NPWT change. Ostomy continues beefy red with minimally protruding, firm tension. The two small patches of denuded skin are improved with use of hydrocolloid wafer (Coloplast). They are unchanged in size but have filled in, now just dark pink areas. No stool noted to be trapped behind wafer. Output dark green and thick-liquid consistency. Peristomal skin was cleansed and dried well, very fine dusting of ostomy powder placed over previously denuded areas, then Coloplast wafer and pouch applied. Site of previous ARCELIA in RUQ, 0.5 cm x 0.5 cm, wound bed with well-adhered yellow slough, 0.1 cm erythemic halo. Wound was cleansed, blotted dry, then covered with small piece of hydrocolloid which should encourage autodebridement. Nursing staff may change PRN; CWON RN will change with routine NWPT and ostomy changes. NPWT drape removed without challenge except for skin tear in RLQ. As usual, black foam had to be thoroughly saturated to remove, although white foam removes easily. Wound bed beefy red, granulating, and dry. A 1 cm L x 1 cm W area of yellow slough noted in LLQ of wound bed, which was scraped out easily with flat side of blade. Wound measured 5.5 cm L x 2 cm W. Center pocket measured 2.5 cm D and distal pocket measured 3 cm D. These dimensions are minimally improved from 04/25/17 (6 cm L x 2 cm W with 2.5 cm center pocket and 3.5. cm distal pocket). Periwound warm and pink, no evidence of infection, no odor, no foul drainage. Small amount of serosanguinous drainage noted in canister, total of 200 ml in 8 days. Wound was cleansed with NS, blotted dry, two pockets filled with white foam and then a piece of black foam applied within wound bed. A second black foam was used under track pad. Stoma paste was used to fill umbilicus. Suction decreased to 100 low continuous, no challenges. JOSE DE JESUS Loyd assessed wound at Dr. Johnson's request. Patient remained confused and mumbling throughout care but cooperative and pleasant. CWON will see patient again on Monday unless care is needed sooner.
[2017-04-28] MEDS: 0.9% Sodium Chloride 250 ML IV SCH ×2 (14:58→18:00)
--- NOTE | 2017-04-28 16:07 | PCM.PNMED ---
Subjective Date of Service Apr 28, 2017 Subjective No overnight events. Patient denies any new complaints of abdominal pain. No fevers, chills or night sweats. Mentation remains unchanged. Patient alert orientated to self, place, and season. Positive for stool output in colostomy bag. Exam Vital Signs Vital Sign - Last Date Time Temp Pulse Resp B/P Pulse Ox O2 Delivery O2 Flow Rate FiO2 04/28/17 12:02 36.6 100 20 120/78 96 Room Air 04/24/17 16:46 2.00 Intake and Output 04/27/17 04/27/17 04/28/17 Cumulative From/Thru 15:00 23:00 07:00 04/21/17 10:44 - 04/28/17 06:12 Intake Total 1375 ml 1187 ml 99318 ml Output Total 500 ml 300 ml 7265 ml Balance 875 ml 887 ml 76704 ml Intake Oral 260 ml 50 ml 1760 ml IV Total 1115 ml 1137 ml 17580 ml Packed Cells 301 ml Output Urine Total 500 ml 200 ml 6815 ml Stool Total 100 ml 430 ml Emesis 15 ml Drainage Total 5 ml # Voids 1 9 Exam General: No acute distress, quiet spoken HEENT: Normocephalic, atraumatic. PERRLA, EOMI, Anicteric sclerae, moist conjunctivae. Neck: No JVD, No bruits. No lymphadenopathy or thyromegaly. Cardiovascular: Tachycardic, regular rhythm, no murmur or gallop noted Pulmonary: b/l air sound with no crackles, or rhonchi. Mild wheezing noted no use of accessory muscles. Abdomen: +Bowel sound, Soft, nontender, green liquid stool output on colostomy, incision site/wound VAC in place nonerythematous, draining serosanguineous fluid Extremities: No clubbing or cyanosis, no lymphedema, no b/l lower leg edema Skin: Normal temperature, turgor, and texture; no rash. No visualized skin ulcer. Neurological: CN II-VII grossly intact, moving equally on all 4 extremities Lab and Diagnostics Result Diagram: 04/28/1741904/28/17419 Microbiology Blood cultures pending X-Rays, CTs and MRIs . X-RAY CHEST ONE VIEW, PORTABLE IMPRESSION: No acute cardiopulmonary disease. Dictated by: Darius Molina M.D. on 04/21/2017 X-RAY PICC LINE PLACEMENT BY NURSE IMPRESSION: Tip of PICC lies within the lower superior vena cava. Dictated by: Darius Molina M.D. on 04/21/2017 CT ANGIO CHEST PULMONARY EMBOLISM IMPRESSION: 1. No large pulmonary emboli. Respiratory motion artifact limits evaluation for small emboli. 2. Mild bronchial wall thickening within the bilateral infrahilar regions ( left greater than right) may represent bronchitis. 3. New/Increasing right middle lobe ground glass nodules. A three-month followup CT of the chest is recommended with contrast. 4. No lymphadenopathy within the chest. 5. 1.3 cm hypodense left thyroid nodule. Please consider a thyroid ultrasound for further evaluation Dictated by: Tarik Roe M.D. on 04/21/2017 CT ABDOMEN AND PELVIS WITH CONTRAST IMPRESSION: 1. Interval postoperative changes of the bowel with a left lower quadrant colostomy. No bowel obstruction. 2. Mild ascites and moderate mesenteric edema probably is related to interval surgery. No drainable fluid collection or definable abscess is evident. 3. Mild prominence of the vieyra of multiple loops of bowel is nonspecific. However, this appearance may be related to colitis or enteritis and clinical correlation is recommended. 4. Fluid within the rectal stump probably is within normal limits. Other: -Absent right kidney and adrenal gland. -Cholelithiasis. -Hepatic steatosis. -Pancreatic lesion is not well evaluated on this exam. -Unusual appearance of an L1 compression fracture may be related to chronic sclerosis. However, a pathologic compression fracture related to metastatic lesion is difficult to exclude. Dictated by: Tarik Roe M.D. on 04/21/2017 Additional Diagnostics DateTimeAnalyzed 14:02:00 -_ pH ____7.474 - 7.350 7.450 pCO2 ___27.7__ -mmHg 35.0 45.0 pO2 107 -mmHg 69.0 116 HCO3- ___20.1__ -mmol/L 22.0 26.0 ABE ___-2.7__ -mmol/L -2.0 2.0 tHb ____7.0__ -g/dL 12.0 18.0 O2Hb ___96.2__ -% COHb ____1.6__ -% 0.0 1.5 MetHb ____0.5__ -% 0.4 1.5 sO2 ___98.3__ -% 25.0 FIO2 ___32.0__ -% Drawn By as - Date/Time Notified____ 14:08:00 -_ Spontaneous_RR ___26.0__ -b/min Liter_Flow ____3.0__ -L/min Oxygen Device 1 __CANNULA - Notified By AMS - Notified Whom DR JOHNSON - B 756 -mmHg tO2 ____9.7__ -Vol% Lion test _Positive - Assessment & Plan Patient is a 71-year-old male with a recent history of partial colectomy secondary to intra-abdominal abscess, diverticular disease readmission for septic shock, currently improving on antibiotics. Acute intraabdominal inflammation and infection, present on admission. -recent ruptured diverticular s/p sigmoid colectomy and colostomy (03/24-04/19) -Wound VAC in place, reported to have been changed on day of admission. -Cultures, viral PCR have been negative thus far. -Infectious Disease Dr. Lozoya consulted -Continue Levaquin, Zosyn and micafungin. D/C daptomycin given the negative VRE /MRSA -Procalcitonin falls ~1/2 daily -Surgery has been consulted and following -Recommend optimize medical management, started TPN Severe protein malnutrition, present on admission, active -2nd to recent major surgery, poor po intake -prealbumin 3, albumin 1.7 -We will continue patient on full liquid nectar thick diet -Total parenteral nutrition started 04/28/2017 -Monitor stool output Abdominal pain -Likely surgical wound, intra-abdominal infection, possible ileus, possible small bowel obstruction -Dilated small bowel with air-fluid level on CT abdomen and pelvis -Positive bowel sounds, passing gas and small amount of stool. -Conservative management -Clear liquid diet -Hydrate with NS 90 mL/h total Sinus tachycardia -Etiology unknown, possible sepsis -Cardizem 30 mg 3 times a day -EKG with runs of tachycardia Septic shock, present on admission. Resolving -lactic acid 7.8, tachypneic, tachycardic, leukocytosis with presumed source of abdominal infection, and AMS requiring brief pressor support. -Possible gallbladder disease given enlargement with stones with elevated LFT , HIDA positive for reduce ejection fraction system with chronic cholecystitis. -No intervention per IR/surgery -broad spec abx on board and continues -Continue tachycardic, tachypneic, leukocytosis, significantly improved since admission Delirium, not present on admission, active -wax-wane mentation -Seroquel 25mg nightly Transaminitis, POA, acute. Active Patient has had high normal Alk Phosm 915, prior to discharge 04/17/2017 alkaline phosphatase 1181. AST mildly elevated -Ultrasound of the abdomen 04/07/2017 (last admission) shows a prominent gallbladder (4.2 mm), HIDA scan & MRCP 04/05 clear -HIDA scan obtained on 04/05 shows no evidence of acute cholecystitis. Results as above -IR recommends no additional imaging studies at this point -monitor Stable, resolving and/or chronic problems: Normocytic anemia, present on admission, stable. -Hemoglobin 9.2 on admit prior to fluid administration, and globin Route level approximately 7.5 average during last admission -Consider transfusion if patient remains less than 7.0 -Continue to monitor COPD, present on admission, stable -O2 support as needed -Duoneb prn Coronary artery disease, chronic. Present on admission. stable. -History of prior ND requiring two stents. -Hold home statin secondary to elevated LFTs -Hold home meds Renal cell carcinoma of right kidney, chronic. Presumed stable. -Pt is s/p nephrectomy in October 2016, previously treated with Pazopanib and dexamethasone. -Per recommendations of oncology from prior admission Pazopanib and dexamethasone may be held for 4-6 weeks while patient stabilizes. -CT abd/pelvis renal cyst as above -Hold home meds -Follow up with Oncology as outpatient in 1-2 weeks to deterimine when to resume Pazopanib and dexamethasone. Elevated troponins. Unknown significance. Continue to monitor -EKG showed sinus tachycardia with an old inferior infarct -Initial troponin elevated 0.045 trended down -stressed induced Respiratory alkalosis with metabolic acidosis. Present on admission. resolved. -2nd to sepsis, lactic acid Acute Encephalopathy, present on admission, resolved -Improving as of day 1 -Continue to monitor Hypertension, chronic. Not present on admission. Ongoing -Currently hypotensive, requiring blood pressure support -Hold home meds Diabetes mellitus, type 2, chronic. Present on admission. Presumed stable. -A1c 5.6 -blood glucose low 100' Disposition: Patient will likely be inpatient for the next several days back to [facility] as we continue to treat his underlining infection. GI Prophylaxis: H2 saw VTE Prophylaxis: Sub-Q Heparin (Unfractionated) VTE Mechanical Devices: Intermittant Pneumatic CD Resuscitation Status: CPR: Attempt Resuscitation Attending Statement The patient was seen and examined together with on April 28 and I agree with the history, exam findings, and plan as outlined in the note above. I did participate in all aspects of the services provided today, including documentation and the plan of care. We will continue treat him with empiric broad-spectrum antibiotics for probable peritonitis. The patient continues to have very slow improvement. We will initiate parenteral feeding TPN today. This was discussed directly with Dr. Gutierrez of general surgery. Leandro Contreras DO Apr 28, 2017 16:07 Lion Martínez MD Apr 29, 2017 15:48
--- NOTE | 2017-04-28 18:19 | PROG NOTE ---
[address] [address] PROGRESS NOTE PATIENT: JOSAFAT SOLIS : 1945 MR#: [id number] ADMIT: 04/21/2017 JOB ID: [id number] DATE: 04/28/2017 Patient remains in ICU in guarded condition. He verbalizes but at this point makes no sense. He has nectar thick liquids for diet and having bowel movements in the colostomy bag. The patient remains tachycardic of 102, BP 118/79. He is afebrile at this time, no respiratory distress. LABORATORY WORK: Shows persistent white count 14,000, anemia, hemoglobin of 7.9, hematocrit 25.9. Chemistry shows hypokalemia at 3.2. Malnutrition due to decreased calorie intake with an albumin of 1.5. He has a declining procalcitonin. Today is 1.53, down from 2.16 of yesterday. PHYSICAL EXAM: His abdomen is soft, but not exactly pliable. The tenderness is resolved to my exam. Stoma is functioning. Wound VAC intact with no surrounding cellulitis. IMPRESSION: Slow improvement. No peritoneal signs today. Nutrition needs to be addressed so plan will be TPN per pharmacy. We will get a prealbumin for a.m. lab draw. Continue antibiotics per medical hospitalist team's recommendations. Also will do a paracentesis of fluid in the abdomen to be sent for Gram stain, culture, fungal and bile.
[2017-04-28] MEDS: levoFLOXacin Inj 750 MG in IV Premix 1 EACH IV SCH (18:25)
--- NOTE | 2017-04-28 19:45 | NUR ---
Multidisciplinary Communication 0800 - Dr. Gutierrez came in to assess the patient and said she would order some TPN. 0830 - Augustina, his , called and was given an update. She said that some family, witnesses, and a notary of republic would be coming later in the day to sign some legal paperwork with him. 09 - Spoke to Dr. Lozoya about the patient and notified him that this nurse observed him looking more pale. Asked if he knew why a paracentesis was ordered and he did not know. He suggested calling BRIAN Loyd. 0940 - Discussed his care with Dr. Martínez and the rest of the multidisciplinary care team during morning rounds. Notified them that he was looking more pale and that he had three self-limiting episodes of sinus tachycardia during the night. Asked about his paracentesis and Dr. Martínez said he would be having one today. 1045 - Spoke to Dr. Contreras who noted that the patient was wheezy and asked that he get a breathing treatment. Respiratory Therapy was called and said they would get him one. 1251 - Spoke to Clau COTE from Wound Care who came to change his wound vac and let Rach TORRES see. Notified her of his right sided abdominal lap site that a nurse, the other day, had said she saw some puss coming out of. Clau said she would take a look. 1303 - Spoke to Rach TORRES as this nurse had noted the Paracentesis order was discontinued. He did not know why it had been cancelled and called radiology who said the abdominal ultrasound did not indicate a paracentesis needed to be performed. 1350 - Orion from Physical Therapy reported that he tried to work with the patient and was only able to get him to sit at the edge of the bed for about six minutes. He stated the patient was anxious about standing.This nurse pre-medicated the patient with Percocet to help with any abdominal pain. He had previous complained about abdominal pain the other day with activity. About 184 - The family, witnesses, and notary of republic came and signed the paperwork with him. They said his was unable to come this evening as she had had a panic attack. Care continues.
[2017-04-28] MEDS: Micafungin Inj 150 MG in 0.9% Sodium Chloride 100 ML IV SCH (20:23)
[2017-04-28] MEDS: Total Parenteral Nutrition 1 BAG IV SCH (22:18)
[2017-04-29] VITALS (10 sets, daily range): BP systolic 119–142; BP diastolic 79–90; PULSE 90–101; RESP 20–24; O2SAT 88–95
[2017-04-29 04:43] LABS: Mean Corpuscular Hemoglobin 28.6 pg (27.0-35.0); Mean Corpuscular Volume 94.6 fL (81-100); Platelet Count 361 bil/L (150-400)
--- NOTE | 2017-04-29 05:03 | NUR ---
Mentation/GI/Resp Pt oriented to self but unable to identify hospital setting. Pt was able to state "[place], [place]." Pt speech garbled. Able to follow commands. No c/o pain throughout shift. TPN started. Low stool output into colostomy. Hypoactive bowel tones. Pt lungs decreased in bases and audible wheezes heard. Pt on RA with saturation 92-93%. No c/o SOB. VSS will continue to monitor.
[2017-04-29 05:11] LABS: Magnesium 2.1 mg/dL (1.6-2.6); Phosphorus 2.8 mg/dL (2.5-4.9)
[2017-04-29 05:16] LABS: BASOPHILS % (AUTO) 0 % (0-3); EOSINOPHILS % (AUTO) 3 % (0-5); MONOCYTES % (AUTO) 2 % (4-12); NEUTROPHILS % (AUTO) 81 % (40-74)
[2017-04-29] MEDS: Piperacillin-Tazo 3.375 Gm Inj 3.375 GM in Dextrose 5% Minibag Plus 50 ML IV SCH ×3 (06:15→23:36)
[2017-04-29] MEDS: TPN Per Pharmacist XX SCH (08:30)
[2017-04-29] MEDS: Sodium Chloride LOK Flush 10 mL Syringe IVFLUSH SCH ×2 (09:07→16:30)
--- NOTE | 2017-04-29 10:58 | NUR ---
NUTRITION FOLLOW-UP: ASSESS: Pt is a 71 YO male admitted with severe sepsis. Pt was recently discharged from [facility] for abdominal abscess secondary to ruptured diverticula requiring sigmoid colectomy and colostomy. Pt required TPN during last admission but did not tolerate it well related to elevated liver labs. Surgery and ID are following. Pt was on a CL diet x 6 days with poor PO intake, as he does not like the clear liquids. Diet advanced to full liquids yesterday; however, patient is still refusing trays. TPN initiated yesterday; no signs of refeeding noted with lab review. Weight is increased 15 kg from admit. Patient's dropping procalcitonin is indicative of a resolving bacterial infection. His mental status appears to be worsening, and he has no desire to eat, per family report. PMHx: CAD, COPD, renal cell carcinoma of right kidney s/p nephrectomy in October 2016, type II diabetes, HTN, dyslipidemia, heartburn, hiatal hernia, GI bleed, sigmoid colectomy with descending colostomy 03/24/2017. DIET: Full Liquid. Pt. refusing trays. TPN:150 g Dex, 50 g AA and 10 g lipids to provide 810 kcal and 50 g pro (~35% kcal and 50% pro needs). LABS:Reviewed. BUN 6, Cr 0.50, Glu 132, Ca 7.4, Alk Phos 441, PAB 7. MEDICATIONS: Reviewed. GI symptoms / stool: Low output via colostomy. Skin Integrity: Ostomy continues beefy red with minimally protruding, firm tension. The two small patches of denuded skin are improved with use of hydrocolloid wafer (Coloplast). They are unchanged in size but have filled in, now just dark pink areas, per Industrial Maintenance Repairer. ANTHROPOMETRICS: Current Wt: 96.2 kg, BMI: 27.0 kg/m2, admit wt 80.5kg IBW: 86.3 kg, UBW: 92kg, 6.5% wt loss x1 month ESTIMATED NEEDS (SEVERE MALNUTRITION, WOUNDS): Calories: 4261-0280 kcal (25 - 30 kcal / kg BW) Protein: 105-130g protein (1.2-1.5 g / kg BW) Fluids: ~2165-2595ml/day (25-30ml/kg) NUTRITION DIAGNOSIS: 1) Inadequate oral intake related altered gi function as evidence by pt requiring CL diet/NPO diet order and PO 25% x2 meals - PERSISTS DESPITE DIET ADVANCE TO FULL LIQUIDS. 2) Severe pro/kcal malnutrition in the context of acute illness as evidence by altered gi function as evidence by PO intake of <50% of estimated energy requirements for >5days, 6.5% wt loss x1 month - PERSISTS. INTERVENTION: 1) Recommend advance diet when medically appropriate. Supplements adjusted now that pts diet has been advanced to [place]. 2) Continue same TPN macronutrient profile over the weekend relate to history of poor PO intake and history of TPN intolerance during last admit. 3) If TPN is tolerated over the weekend, recommend slowly increasing macronutrients to goal 260 g Dex, 105 g AA and 20 g lipids to provide 1505 kcal and 105 g pro (~70% kcal and 100% pro needs). Goal TPN meets 70% kcal needs due to pt on Full Liquid diet. 4) Will monitor PO intake and adjust goal rate accordingly. 5) Recommend monitor pts Liver labs closely. If labs trend up, recommend cycle lipids three days a week or possibly running TPN x12 hrs/day rather than 24 hrs. MONITOR/EVALUATE: PO, diet advance, TPN jim, gi, labs, weight, and nutrition status. Follow up per high nutrition risk guidelines.
--- NOTE | 2017-04-29 11:15 | PCM.PHAPRO ---
Progress Date of Service: Apr 29, 2017 TPN PARENTERAL NUTRITION ORDERS 2 29-Apr-17 Standard Hang Time: 2100 Substrates Total kcal: 810 AMINO ACIDS 50 g DEXTROSE 150 g Total Volume (mL): 1000 LIPIDS 10 g Sterile Water for Injection mL To Infuse Over (hrs): 24 Total Volume 1000 mL At at a rate of (mL/hr): 42 Additives Sodium Chloride 60 mEq "typical" daily requirements Sodium Acetate 20 mEq Sodium 50-120mEq Potassium Chloride 40 mEq Potassium 60-120mEq Potassium Phosphate 20 mEq Phosphate 20-40mEq Calcium Gluconate 9.3 mEq Magnesium 8-32mEq Magnesium Sulfate 16 mEq Calcium 9-22mEq Acetate* 80-120mEq Chloride* 80-120mEq Regular Insulin units *Depending on acid-base status Famotidine 40 mg Multivitamins 1 std dose Insulin Regimen Trace Elements 1 std dose none Thiamine mg Regular Low Intensity Subcut Folic Acid mg Regular Medium Intensity Subcut Ascorbic Acid mg Regular High Intensity Subcut Regular Insulin Infusion Other: Darrius Adams Apr 29, 2017 11:15
--- NOTE | 2017-04-29 11:31 | PCM.PNMED ---
Subjective Date of Service Apr 29, 2017 Subjective The patient is comfortable today. He is able to answer limited questions. He denies much abdominal pain or difficulty with his breathing. No chest pain. No overnight events noted. Exam Vital Signs Vital Sign - Last Date Time Temp Pulse Resp B/P Pulse Ox O2 Delivery O2 Flow Rate FiO2 04/29/17 09:01 36.4 98 24 131/79 94 Room Air 04/24/17 16:46 2.00 Intake and Output 04/28/17 04/28/17 04/29/17 Cumulative From/Thru 15:00 23:00 07:00 04/21/17 10:44 - 04/29/17 06:09 Intake Total 213 ml 320 ml 1174 ml 57064 ml Output Total 300 ml 600 ml 8165 ml Balance 213 ml 20 ml 574 ml 48275 ml Intake Oral 320 ml 50 ml 2130 ml IV Total 213 ml 1124 ml 86657 ml Packed Cells 301 ml Output Urine Total 300 ml 600 ml 7715 ml Stool Total 430 ml Emesis 15 ml Drainage Total 5 ml # Voids 2 2 13 Exam Alert and is self. No distress. Slow motor and speech. Anicteric sclera. Lungs are clear with normal rate and effort Heart is regular without murmur gallop or rub Abdomen distended but nontender. Colostomy with minimal output. Extremities are with 1-2+ Skin is free of rash or lesions. IVs and Medications Medications Reviewed: Medications were reviewed in detail Lab and Diagnostics Result Diagram: 04/29/1742004/29/17420 Microbiology Blood cultures pending X-Rays, CTs and MRIs . X-RAY CHEST ONE VIEW, PORTABLE IMPRESSION: No acute cardiopulmonary disease. Dictated by: Darius Molina M.D. on 04/21/2017 X-RAY PICC LINE PLACEMENT BY NURSE IMPRESSION: Tip of PICC lies within the lower superior vena cava. Dictated by: Darius Molina M.D. on 04/21/2017 CT ANGIO CHEST PULMONARY EMBOLISM IMPRESSION: 1. No large pulmonary emboli. Respiratory motion artifact limits evaluation for small emboli. 2. Mild bronchial wall thickening within the bilateral infrahilar regions ( left greater than right) may represent bronchitis. 3. New/Increasing right middle lobe ground glass nodules. A three-month followup CT of the chest is recommended with contrast. 4. No lymphadenopathy within the chest. 5. 1.3 cm hypodense left thyroid nodule. Please consider a thyroid ultrasound for further evaluation Dictated by: Tarik Roe M.D. on 04/21/2017 CT ABDOMEN AND PELVIS WITH CONTRAST IMPRESSION: 1. Interval postoperative changes of the bowel with a left lower quadrant colostomy. No bowel obstruction. 2. Mild ascites and moderate mesenteric edema probably is related to interval surgery. No drainable fluid collection or definable abscess is evident. 3. Mild prominence of the vieyra of multiple loops of bowel is nonspecific. However, this appearance may be related to colitis or enteritis and clinical correlation is recommended. 4. Fluid within the rectal stump probably is within normal limits. Other: -Absent right kidney and adrenal gland. -Cholelithiasis. -Hepatic steatosis. -Pancreatic lesion is not well evaluated on this exam. -Unusual appearance of an L1 compression fracture may be related to chronic sclerosis. However, a pathologic compression fracture related to metastatic lesion is difficult to exclude. Dictated by: Tarik Roe M.D. on 04/21/2017 Additional Diagnostics DateTimeAnalyzed 14:02:00 -_ pH ____7.474 - 7.350 7.450 pCO2 ___27.7__ -mmHg 35.0 45.0 pO2 107 -mmHg 69.0 116 HCO3- ___20.1__ -mmol/L 22.0 26.0 ABE ___-2.7__ -mmol/L -2.0 2.0 tHb ____7.0__ -g/dL 12.0 18.0 O2Hb ___96.2__ -% COHb ____1.6__ -% 0.0 1.5 MetHb ____0.5__ -% 0.4 1.5 sO2 ___98.3__ -% 25.0 FIO2 ___32.0__ -% Drawn By as - Date/Time Notified____ 14:08:00 -_ Spontaneous_RR ___26.0__ -b/min Liter_Flow ____3.0__ -L/min Oxygen Device 1 __CANNULA - Notified By AMS - Notified Whom DR OKELLY - B 756 -mmHg tO2 ____9.7__ -Vol% Lion test _Positive - Assessment & Plan Patient is a 71-year-old male with a recent history of partial colectomy secondary to intra-abdominal abscess, diverticular disease readmission for septic shock, currently improving on antibiotics. #. Acute intraabdominal inflammation and infection, present on admission and improving.. -recent ruptured diverticular s/p sigmoid colectomy and colostomy (03/24-04/19) -Wound VAC in place, reported to have been changed on day of admission. -Cultures, viral PCR have been negative thus far. -Infectious Disease Dr. Lozoya consulted -Continue Levaquin, Zosyn and micafungin. D/C daptomycin given the negative VRE /MRSA -Procalcitonin falls ~1/2 daily -Surgery has been consulted and following -Recommend optimize medical management, started TPN #. Severe protein malnutrition, present on admission, active -2nd to recent major surgery, poor po intake -prealbumin 3, albumin 1.7 -We will continue patient on full liquid nectar thick diet -Total parenteral nutrition started 04/28/2017 -Monitor stool output #. Abdominal pain, present on admission and improving. -Likely surgical wound, intra-abdominal infection, possible ileus, possible small bowel obstruction -Dilated small bowel with air-fluid level on CT abdomen and pelvis -Positive bowel sounds, passing gas and small amount of stool. -Conservative management -Clear liquid diet -Hydrate with NS 90 mL/h total #. Paroxysmal Sinus tachycardia, present on admission and improving. -Etiology unknown, possible sepsis -Cardizem 30 mg 3 times a day, will continue -EKG with runs of tachycardia #. Septic shock, present on admission and improving -lactic acid 7.8, tachypneic, tachycardic, leukocytosis with presumed source of abdominal infection, and AMS requiring brief pressor support. -Possible gallbladder disease given enlargement with stones with elevated LFT , HIDA positive for reduce ejection fraction system with chronic cholecystitis. -No intervention per IR/surgery -broad spec abx on board and continues -Continue to follow clinically. #. Septic encephalopathy, not present on admission, active and stable -wax-wane mentation -Seroquel 25mg nightly #. Transaminitis, present on admission and active Patient has had high normal Alk Phosm 915, prior to discharge 04/17/2017 alkaline phosphatase 1181. AST mildly elevated -Ultrasound of the abdomen 04/07/2017 (last admission) shows a prominent gallbladder (4.2 mm), HIDA scan & MRCP 04/05 clear -HIDA scan obtained on 04/05 shows no evidence of acute cholecystitis. Results as above -IR recommends no additional imaging studies at this point -monitor with TPN initiation. #. Normocytic anemia, present on admission, stable. -Hemoglobin 9.2 on admit prior to fluid administration, and globin Route level approximately 7.5 average during last admission -Consider transfusion if patient remains less than 7.0 -Continue to monitor #. COPD, present on admission, stable -O2 support as needed -Duoneb prn #. Coronary artery disease, chronic. Present on admission. stable. -History of prior [place] requiring two stents. -Hold home statin secondary to elevated LFTs -Hold home meds #. Renal cell carcinoma of right kidney, chronic. Presumed stable. -Pt is s/p nephrectomy in October 2016, previously treated with Pazopanib and dexamethasone. -Per recommendations of oncology from prior admission Pazopanib and dexamethasone may be held for 4-6 weeks while patient stabilizes. -CT abd/pelvis renal cyst as above -Hold home meds -Follow up with Oncology as outpatient in 1-2 weeks to deterimine when to resume Pazopanib and dexamethasone. #. Elevated troponins. Unknown significance. Continue to monitor -EKG showed sinus tachycardia with an old inferior infarct -Initial troponin elevated 0.045 trended down -stressed induced #. Respiratory alkalosis with metabolic acidosis. Present on admission. resolved. -2nd to sepsis, lactic acid #. Essential Hypertension, chronic. Present on admission and not active. -Currently hypotensive, requiring blood pressure support -Hold home meds #. Diabetes mellitus, type 2, Present on admission. Presumed stable. -A1c 5.6 -blood glucose low 100' Disposition: Patient will likely go back to [facility] once he becomes medically stable and improved. GI Prophylaxis: H2 saw VTE Prophylaxis: Sub-Q Heparin (Unfractionated) VTE Mechanical Devices: Intermittant Pneumatic CD Resuscitation Status: CPR: Attempt Resuscitation Lion Martínez MD Apr 29, 2017 11:30 Lion Martínez MD Apr 29, 2017 11:30
--- NOTE | 2017-04-29 11:42 | PROG NOTE ---
[address] [address] PROGRESS NOTE PATIENT: JOSAFAT SOLIS : 1945 MR#: [id number] ADMIT: 04/21/2017 JOB ID: [id number] DATE: 04/29/2017 SUBJECTIVE: The patient is seen in followup for general surgery. Clinical status remains unchanged, though is slightly less tachycardic this morning. Continues with room air saturation of 95%. Examination is unchanged. An attempt at paracentesis failed due to insufficient amount of volume per Radiology on ultrasound. PLAN: No new recommendations.
[2017-04-29] MEDS: oxyCODONE-Acetamin 5-325 mg Tablet PO PRN (14:09)
[2017-04-29] MEDS: 0.9% Sodium Chloride 250 ML IV SCH ×2 (15:25→18:00)
[2017-04-29] MEDS: 0.9% Sodium Chloride 1,000 ML IV SCH (15:48)
--- NOTE | 2017-04-29 19:16 | NUR ---
Mentation/Edema Pt alert to self this shift. Pt mumbles and is soft spoken, he has been able to make his needs known to staff when they are in his room. Pt does not use call light. Pt has requested urinal x2. Pt is having lucid dreams and upon waking asks questions like "where is the baby" or " I was just walking in the park". Noted this shift that the pt was exhibiting some edema in his scrotum and his penis.
[2017-04-29] MEDS: levoFLOXacin Inj 750 MG in IV Premix 1 EACH IV SCH (21:02)
[2017-04-29] MEDS: Micafungin Inj 150 MG in 0.9% Sodium Chloride 100 ML IV SCH (21:08)
[2017-04-29] MEDS: Total Parenteral Nutrition 1 BAG IV SCH (21:55)
[2017-04-30] VITALS (11 sets, daily range): BP systolic 125–140; BP diastolic 76–89; PULSE 92–120; RESP 18–38; O2SAT 94–98
[2017-04-30] MEDS: Sodium Chloride LOK Flush 10 mL Syringe IVFLUSH SCH ×3 (00:30→16:05)
--- NOTE | 2017-04-30 05:45 | NUR ---
Tele/Mentation Patient's tele sinus/sinus tach, rates in the 90s-100s. Patient continues to be oriented to self only. Frequent attempts to communicate with staff, but content of speech is unintelligible.
[2017-04-30 06:08] LABS: Magnesium 2.1 mg/dL (1.6-2.6); Phosphorus 2.5 mg/dL (2.5-4.9)
[2017-04-30] MEDS: Piperacillin-Tazo 3.375 Gm Inj 3.375 GM in Dextrose 5% Minibag Plus 50 ML IV SCH ×3 (08:22→23:21)
[2017-04-30] MEDS: TPN Per Pharmacist XX SCH (08:25)
--- NOTE | 2017-04-30 08:41 | PROG NOTE ---
[address] [address] PROGRESS NOTE PATIENT: JOSAFAT SOLIS : 1945 MR#: [id number] ADMIT: 04/21/2017 JOB ID: [id number] DATE: 04/30/2017 Follow up for General Surgery. The patient remains clinically the same, no clear intra-abdominal source for his sepsis though primary complaint has been abdominal pain. I will discuss the case with Dr. Martínez of the hospitalist service today.
--- NOTE | 2017-04-30 11:19 | PCM.PHAPRO ---
Progress Date of Service: Apr 30, 2017 TPN PARENTERAL NUTRITION ORDERS 3 - Standard Hang Time: 2100 Substrates Total kcal: 810 AMINO ACIDS 50 g DEXTROSE 150 g Total Volume (mL): 1000 LIPIDS 10 g Sterile Water for Injection mL To Infuse Over (hrs): 24 Total Volume 1000 mL At at a rate of (mL/hr): 42 Additives Sodium Chloride 60 mEq "typical" daily requirements Sodium Acetate 20 mEq Sodium 50-120mEq Potassium Chloride 40 mEq Potassium 60-120mEq Potassium Phosphate 20 mEq Phosphate 20-40mEq Calcium Gluconate 9.3 mEq Magnesium 8-32mEq Magnesium Sulfate 16 mEq Calcium 9-22mEq Acetate* 80-120mEq Chloride* 80-120mEq Regular Insulin units *Depending on acid-base status Famotidine 40 mg Multivitamins 1 std dose Insulin Regimen Trace Elements 1 std dose none Thiamine mg Regular Low Intensity Subcut Folic Acid mg Regular Medium Intensity Subcut Ascorbic Acid mg Regular High Intensity Subcut Regular Insulin Infusion Other: Darrius Adams Apr 30, 2017 11:19
--- NOTE | 2017-04-30 11:42 | PCM.PNMED ---
Subjective Date of Service Apr 30, 2017 Subjective Patient states he is comfortable. Less abdominal pain. Not much of an appetite. He is denying any problems with his breathing. No chest pain. No confusion. No overnight events noted. Exam Vital Signs Vital Sign - Last Date Time Temp Pulse Resp B/P Pulse Ox O2 Delivery O2 Flow Rate FiO2 04/30/17 10:02 107 04/30/17 09:30 36.7 18 140/84 95 Room Air 04/24/17 16:46 2.00 Intake and Output 04/29/17 04/29/17 04/30/17 Cumulative From/Thru 14:59 22:59 06:59 04/21/17 10:44 - 04/30/17 06:44 Intake Total 1565 ml 958 ml 78194 ml Output Total 250 ml 250 ml 8665 ml Balance 1315 ml 708 ml 01240 ml Intake Oral 100 ml 50 ml 2280 ml IV Total 1465 ml 908 ml 25727 ml Packed Cells 301 ml Output Urine Total 250 ml 250 ml 8215 ml Stool Total 430 ml Emesis 15 ml Drainage Total 5 ml # Voids 1 1 15 Exam Alert and oriented -3, no distress. Slow slurred speech. Anicteric sclera. Lungs are clear with normal rate and effort Heart is regular without murmur gallop or rub Abdomen distended and somewhat firm. Hypertympanic. Ostomy in place with minimal output. Extremities are 2+ pedal edema. Skin is free of rash or lesions. IVs and Medications Medications Reviewed: Medications were reviewed in detail Lab and Diagnostics Result Diagram: 04/29/17 0421 04/30/17 0500 Microbiology Blood cultures pending X-Rays, CTs and MRIs . X-RAY CHEST ONE VIEW, PORTABLE IMPRESSION: No acute cardiopulmonary disease. Dictated by: Darius Molina M.D. on 04/21/2017 X-RAY PICC LINE PLACEMENT BY NURSE IMPRESSION: Tip of PICC lies within the lower superior vena cava. Dictated by: Darius Molina M.D. on 04/21/2017 CT ANGIO CHEST PULMONARY EMBOLISM IMPRESSION: 1. No large pulmonary emboli. Respiratory motion artifact limits evaluation for small emboli. 2. Mild bronchial wall thickening within the bilateral infrahilar regions ( left greater than right) may represent bronchitis. 3. New/Increasing right middle lobe ground glass nodules. A three-month followup CT of the chest is recommended with contrast. 4. No lymphadenopathy within the chest. 5. 1.3 cm hypodense left thyroid nodule. Please consider a thyroid ultrasound for further evaluation Dictated by: Tarik Roe M.D. on 04/21/2017 CT ABDOMEN AND PELVIS WITH CONTRAST IMPRESSION: 1. Interval postoperative changes of the bowel with a left lower quadrant colostomy. No bowel obstruction. 2. Mild ascites and moderate mesenteric edema probably is related to interval surgery. No drainable fluid collection or definable abscess is evident. 3. Mild prominence of the vieyra of multiple loops of bowel is nonspecific. However, this appearance may be related to colitis or enteritis and clinical correlation is recommended. 4. Fluid within the rectal stump probably is within normal limits. Other: -Absent right kidney and adrenal gland. -Cholelithiasis. -Hepatic steatosis. -Pancreatic lesion is not well evaluated on this exam. -Unusual appearance of an L1 compression fracture may be related to chronic sclerosis. However, a pathologic compression fracture related to metastatic lesion is difficult to exclude. Dictated by: Tarik Roe M.D. on 04/21/2017 Additional Diagnostics DateTimeAnalyzed 14:02:00 -_ pH ____7.474 - 7.350 7.450 pCO2 ___27.7__ -mmHg 35.0 45.0 pO2 107 -mmHg 69.0 116 HCO3- ___20.1__ -mmol/L 22.0 26.0 ABE ___-2.7__ -mmol/L -2.0 2.0 tHb ____7.0__ -g/dL 12.0 18.0 O2Hb ___96.2__ -% COHb ____1.6__ -% 0.0 1.5 MetHb ____0.5__ -% 0.4 1.5 sO2 ___98.3__ -% 25.0 FIO2 ___32.0__ -% Drawn By as - Date/Time Notified____ 14:08:00 -_ Spontaneous_RR ___26.0__ -b/min Liter_Flow ____3.0__ -L/min Oxygen Device 1 __CANNULA - Notified By AMS - Notified Whom DR OKELLY - B 756 -mmHg tO2 ____9.7__ -Vol% Lion test _Positive - Assessment & Plan Patient is a 71-year-old male with a recent history of partial colectomy secondary to intra-abdominal abscess, diverticular disease readmission for septic shock, currently improving on antibiotics. #. Acute intraabdominal inflammation and infection, present on admission and slowly improving. -recent ruptured diverticular s/p sigmoid colectomy and colostomy (03/24-04/19) -Wound VAC in place, reported to have been changed on day of admission. -Cultures, viral PCR have been negative thus far. -Infectious Disease Dr. Lozoya consulted -Continue Levaquin, Zosyn and micafungin. D/C daptomycin given the negative VRE /MRSA -Procalcitonin falls ~1/2 daily -Surgery has been consulted and following -Recommend optimize medical management, started TPN We will discuss duration of empiric antibiotics with infectious disease on Monday, May 01. #. Postoperative ileus, new and active. Continue supportive TPN and follow clinically. He is taking small amounts of full liquid diet. #. Severe protein malnutrition, present on admission, active -2nd to recent major surgery, poor po intake -prealbumin 3, albumin 1.7 -We will continue patient on full liquid nectar thick diet -Total parenteral nutrition started 04/28/2017 normal will continue for now. -Monitor stool output #. Abdominal pain, present on admission and improving. -Likely surgical wound, intra-abdominal infection, possible ileus, possible small bowel obstruction -Dilated small bowel with air-fluid level on CT abdomen and pelvis -Positive bowel sounds, passing gas and small amount of stool. -Conservative management -Clear liquid diet -Hydrate with NS 90 mL/h total No other changes. #. Paroxysmal Sinus tachycardia, present on admission and resolved. -Etiology unknown, possible sepsis -Cardizem 30 mg 3 times a day, will continue -EKG with runs of tachycardia This seems to be resolved on his diltiazem 30 mg 3 times a day. No changes. #. Septic shock, present on admission and resolved. -lactic acid 7.8, tachypneic, tachycardic, leukocytosis with presumed source of abdominal infection, and AMS requiring brief pressor support. -Possible gallbladder disease given enlargement with stones with elevated LFT , HIDA positive for reduce ejection fraction system with chronic cholecystitis. -No intervention per IR/surgery -broad spec abx on board and continues -Continue to follow clinically. #. Septic encephalopathy, not present on admission, active and stable -wax-wane mentation -Seroquel 25mg nightly No further changes at this time. #. Transaminitis, present on admission and active Patient has had high normal Alk Phosm 915, prior to discharge 04/17/2017 alkaline phosphatase 1181. AST mildly elevated -Ultrasound of the abdomen 04/07/2017 (last admission) shows a prominent gallbladder (4.2 mm), HIDA scan & MRCP 04/05 clear -HIDA scan obtained on 04/05 shows no evidence of acute cholecystitis. Results as above -IR recommends no additional imaging studies at this point -monitor with TPN initiation. #. Normocytic anemia, present on admission, stable. -Hemoglobin 9.2 on admit prior to fluid administration, and globin Route level approximately 7.5 average during last admission -Consider transfusion if patient remains less than 7.0 -Continue to monitor #. COPD, present on admission, stable -O2 support as needed -Duoneb prn , no changes. #. Coronary artery disease, chronic. Present on admission. stable. -History of prior [place] requiring two stents. -Hold home statin secondary to elevated LFTs -Hold home meds #. Renal cell carcinoma of right kidney, chronic. Presumed stable. -Pt is s/p nephrectomy in October 2016, previously treated with Pazopanib and dexamethasone. -Per recommendations of oncology from prior admission Pazopanib and dexamethasone may be held for 4-6 weeks while patient stabilizes. -CT abd/pelvis renal cyst as above -Hold home meds -Follow up with Oncology as outpatient in 1-2 weeks to deterimine when to resume Pazopanib and dexamethasone. #. Elevated troponins. Unknown significance. Continue to monitor -EKG showed sinus tachycardia with an old inferior infarct -Initial troponin elevated 0.045 trended down -stressed induced #. Respiratory alkalosis with metabolic acidosis. Present on admission. resolved. -2nd to sepsis, lactic acid #. Essential Hypertension, chronic. Present on admission and not active. -Currently hypotensive, requiring blood pressure support -Hold home meds #. Diabetes mellitus, type 2, Present on admission. Presumed stable. -A1c 5.6 -blood glucose low 100' Disposition: Patient will likely go back to [facility] once he becomes medically stable and improved. I believe he will be in the hospital at least through May 05 GI Prophylaxis: H2 saw VTE Prophylaxis: Sub-Q Heparin (Unfractionated) VTE Mechanical Devices: Intermittant Pneumatic CD Resuscitation Status: CPR: Attempt Resuscitation Lion Martínez MD Apr 30, 2017 11:42
--- NOTE | 2017-04-30 15:04 | NUR ---
Transfer Pt transfer down to [facility]. Report given to KERA López. Pt left with all personal belongings. Wound Vac intact. Colostomy intact. TPN running into PICC line.
--- NOTE | 2017-04-30 15:22 | NUR ---
Transfer Pt transferred to [facility] room 1006. Report taken from Priscilla Ovalle RN.
[2017-04-30] MEDS: 0.9% Sodium Chloride 250 ML IV SCH ×2 (15:53→18:36)
[2017-04-30] MEDS ORDERED: Furosemide 10 mg/mL 2 mL Inj IVPUSH ONE (16:50)
--- NOTE | 2017-04-30 16:55 | NUR ---
Respiratory Pt had audible wheezes with 36 respirations/min. RT notified for respiratory treatment. MD notified. Chest xray ordered. Lasix to be given. Pt reminded to cough and deep breath. Will continue to monitor. Care continues. Addendum: 04/30/17 at 1910 by JOVANI BRIZUELA RN 1700 respirations down to 24. Wheezing not audible. Will continue to monitor.
--- NOTE | 2017-04-30 17:03 | NUR ---
Social Work: Continued Discharge Planning/Multidisciplinary Rounds D: Pt discussed in multidisciplinary rounds. The patient is still not medically stable for discharge. Pt has been transferred to [facility]. Emmanuel, jj with [facility], updated on pt's condition. [facility] is able to accept pt when medically stable with Dr. Parmar to follow. SW will continue to follow. PPW on chart. A: Pt who will require skilled rehab at discharge. P: Anticipate pt to discharge back to [facility] once medically stable; [employer] to continue to follow to assess for unmet needs. Zohra Riley, [employer]
--- NOTE | 2017-04-30 17:09 | NUR ---
Called per RN due to Pt having audible wheezing. Pt given duoneb and Dr. Martínez notified. Pt had decreased wheezing post treatment. Pt to be on scheduled treatments, given lasix and have CXR.
--- NOTE | 2017-04-30 17:41 | DRSVH ---
PROCEDURE: X-RAY CHEST ONE VIEW, PORTABLE ([id number]) INDICATIONS: dyspnea TECHNIQUE: One view of the chest was acquired. COMPARISON: [facility], CR, XR CHEST 1VW (PORTABLE), 04/21/2017, 11:44. FINDINGS: Surgical changes and devices: None. Lungs and pleura: No pleural effusions or pneumothorax. Lung volumes are low. Moderate patchy bilate ral mid and lower lung opacity is present. Mediastinum: Mediastinal contours appear normal. Heart size is normal. Bones and chest wall: No suspicious bony lesions. Overlying soft tissues appear unremarkable. IMPRESSION: Moderate atypical pneumonia. Dictated by: Alcides Quick M.D. on 04/30/2017 at 17:39 Approved by: Alcides Quick M.D. on 04/30/2017 at 17:39
[2017-04-30] MEDS: levoFLOXacin Inj 750 MG in IV Premix 1 EACH IV SCH (18:36)
[2017-04-30] MEDS: Micafungin Inj 150 MG in 0.9% Sodium Chloride 100 ML IV SCH (21:17)
[2017-04-30] MEDS: Total Parenteral Nutrition 1 BAG IV SCH (21:37)
[2017-04-30] MEDS: Albuterol-Ipratropium 3 mL Inhalation Solution NEB SCH (23:17)
[2017-05-01] VITALS (10 sets, daily range): BP systolic 114–130; BP diastolic 73–86; PULSE 92–118; RESP 16–24; O2SAT 92–96
[2017-05-01] MEDS: Sodium Chloride LOK Flush 10 mL Syringe IVFLUSH SCH ×3 (00:30→18:26)
[2017-05-01] MEDS: oxyCODONE-Acetamin 5-325 mg Tablet PO PRN (02:07)
--- NOTE | 2017-05-01 03:36 | NUR ---
Respiratory/HR Pt noted with expiratory wheezes on this shift. Scheduled duoned admin by RT with some relief noted. Pt HR was in the 130s per tele, LN assessment pt and coached pt to deep breath and cough with some improvement and Percocet admin x1 for pain. Upon reassessment, pt HR came down to 101-106 which is baseline. Pt is resting comfortably in bed, call light w/in reach. Will continue to monitor.
[2017-05-01 06:03] LABS: Magnesium 2.1 mg/dL (1.6-2.6); Phosphorus 3.2 mg/dL (2.5-4.9)
[2017-05-01] MEDS: Piperacillin-Tazo 3.375 Gm Inj 3.375 GM in Dextrose 5% Minibag Plus 50 ML IV SCH ×3 (06:07→23:14)
[2017-05-01] MEDS: Albuterol-Ipratropium 3 mL Inhalation Solution NEB SCH ×3 (08:12→22:29)
[2017-05-01] MEDS: TPN Per Pharmacist XX SCH (08:30)
[2017-05-01] MEDS ORDERED: Furosemide 10 mg/mL 4 mL Inj IVPUSH SCH (08:30)
--- NOTE | 2017-05-01 08:38 | PROG NOTE ---
[address] [address] PROGRESS NOTE PATIENT: JOSAFAT SOLIS : 1945 MR#: [id number] ADMIT: 04/21/2017 JOB ID: [id number] DATE: 05/01/2017 REASON FOR FOLLOWUP: Right-sided abdominal infection, now resolving, with increasing fluid overload and shortness of breath. INTERVAL HISTORY: Over the weekend, the patient has become more short of breath and is now requiring face mask oxygen. He has a wet cough and reports shortness of breath. He denies fevers, chills, and denies abdominal pain. This case was discussed with respiratory therapist who was at the bedside, as well as with the hospitalist. PHYSICAL EXAMINATION: Reveals an afebrile gentleman, who is working harder to breathe than he was during the course of the last week. He has been afebrile really throughout his long hospital stay, at least, except for a 38.0 temperature over a week ago. His pulse is currently about 100, his respiratory rate in the mid 20s. Blood pressure 118/78, and he is saturating well but requiring face mask oxygen which is new. Examination of the eyes reveals no notable abnormalities. Lungs with coarse rales at the bases. Cardiac tones are distant. Abdomen without tenderness. Colostomy functioning. Peripheral edema which was minimal last week is now about 2+ to 3+, greater on the right lower extremity than the left. LABORATORIES: Include a white count which has been relatively constant and is staying at 15,000. Platelet count 361. His differential white count now shows a bit of a left shift that was not present previously, with 1% metamyelocytes and 1% myelocytes. His creatinine is 0.58, which is stable. Liver function tests normal except the high alk phos he has had persistently, currently 491. Procalcitonin yesterday was 0.74. This is down from a peak of 40 nine days ago. No new micro studies are available. We had a single positive blood culture for lactobacillus earlier, and that is likely a contaminant. IMAGING: Today's chest x-ray shows evolving infiltrates in the lower lung werner, and this almost certainly represents fluid overload. IMPRESSION: This is a complicated, elderly gentleman, whose was initially here back in March with a ruptured diverticulitis, requiring formation of a colostomy. He had a long elisa course and was discharged only to be readmitted with severe right-sided abdominal pain and obvious sepsis with procalcitonin of 40. He seems to be improving in terms of that, as his right-sided abdominal pain is now essentially gone and his procalcitonin is approaching normal. Unfortunately, the patient now is clearly fluid overloaded with a weight of 14 kg since admission and increasing shortness of breath with peripheral edema. As to when to stop his antibiotics is a bit unclear. He starting to develop a left shift in his white count which I cannot explain at this point, though it could be due to congestive heart failure in and of itself. RECOMMENDATIONS: 1. Will continue with our current triple antibiotics at least one more day. 2. Tomorrow morning, in addition to his other labs, we will order a procalcitonin. If this has declined to less than 0.5 tomorrow, which I think is likely, we will go ahead and stop all antibiotics assuming his condition is stable, and then observing with respect to infectious disease issues.
--- NOTE | 2017-05-01 11:24 | NUR ---
NUTRITION FOLLOW-UP: ASSESS: Pt is a 71 YO male admitted with severe sepsis. Pt was recently discharged from [facility] for abdominal abscess secondary to ruptured diverticula requiring sigmoid colectomy and colostomy, now with intraabdominal infection, ID following, postop ileus and continuation of abdominal pain. Transaminitis, notes monitoring with initiation of TPN (04/28). TPN appears well tolerated with no refeeding issues, Alk phos/triglycerides remains elevated. PMHx: CAD, COPD, renal cell carcinoma of right kidney s/p nephrectomy in October 2016, type II diabetes, HTN, dyslipidemia, heartburn, hiatal hernia, GI bleed, sigmoid colectomy with descending colostomy 03/24/2017. DIET: Full Liquid. PO 15-20%. Pt reporting minimal appetite. TPN:150 g Dex, 50 g AA and 10 g lipids to provide 810 kcal and 50 g pro (~35% kcal and 50% pro needs). LABS:Reviewed. Glu 139,Alk Phos 491,Alb 1.9,PAB 7; AST/ALT,Phos/Mg all WNL MEDICATIONS: Reviewed. GI symptoms / stool: Low output via colostomy. Skin Integrity: Ostomy continues beefy red with minimally protruding, firm tension. The two small patches of denuded skin are improved with use of hydrocolloid wafer (Coloplast). They are unchanged in size but have filled in, now just dark pink areas, per Beef Grader. ANTHROPOMETRICS: Current Wt: 94.0 kg, BMI: 27.0 kg/m2, admit wt 80.5kg IBW: 86.3 kg, UBW: 92kg, 6.5% wt loss x1 month ESTIMATED NEEDS (SEVERE MALNUTRITION, WOUNDS): Calories: 6975-7921 kcal (25 - 30 kcal / kg BW) Protein: 105-130g protein (1.2-1.5 g / kg BW) Fluids: ~2165-2595ml/day (25-30ml/kg) NUTRITION DIAGNOSIS: 1) Inadequate oral intake related altered gi function/ileus as evidence by PO on full Liquids at 15-25% - PERSISTS DESPITE DIET ADVANCE TO FULL LIQUIDS. 2) Severe pro/kcal malnutrition in the context of acute illness as evidence by altered gi function as evidence by PO intake of <50% of estimated energy requirements for >5days, 6.5% wt loss x1 month - PERSISTS. INTERVENTION: 1) Recommend advance diet when medically appropriate. Supplements adjusted now that pts diet has been advanced to [place]. 2) TPN increased today to better meet estimated needs: 200g dextrose,80g AA,15g lipids to provide 1150kcal, 80g protein: 1150kcal,80g protein. 3) Goal TPN of: 260 g Dex, 105 g AA and 20 g lipids to provide 1505 kcal and 105 g pro (~70% kcal and 100% pro needs). Goal TPN meets 70% kcal needs due to pt on Full Liquid diet. 4) Will monitor PO intake and adjust goal rate accordingly. 5) Recommend monitor pts Liver labs closely. If labs trend up, recommend cycle lipids three days a week or possibly running TPN x12 hrs/day rather than 24 hrs. MONITOR/EVALUATE: PO, diet advance, TPN jim, gi, labs, weight, and nutrition status. Follow up per high nutrition risk guidelines.
--- NOTE | 2017-05-01 11:27 | PCM.PHAPRO ---
Progress Date of Service: May 01, 2017 TPN Laboratory Tests Test 05/01/17 05:00 Sodium Level 137mEq/L (134-144) Potassium Level 4.5mEq/L (3.5-5.2) Chloride Level 99mEq/L (97-108) Carbon Dioxide Level 24mmol/L (18-29) Blood Urea Nitrogen 11mg/dL (8-27) Creatinine 0.58mg/dL (0.76-1.27) Estimat Glomerular Filtration Rate 147mL/min (>59) Glucose Level 139mg/dL (60-99) Calcium Level 8.2mg/dL (8.5-10.1) Phosphorus Level 3.2mg/dL (2.5-4.9) Magnesium Level 2.1mg/dL (1.6-2.6) Total Bilirubin 0.4mg/dL (0.0-1.2) Aspartate Amino Transf (AST/SGOT) 37U/L (0-50) Alanine Aminotransferase (ALT/SGPT) 13U/L (0-44) Alkaline Phosphatase 491U/L (25-160) Total Protein 4.5g/dL (6.4-8.4) Albumin 1.9g/dL (3.4-5.0) Triglycerides Level 352mg/dL (0-149) Procalcitonin 0.67ng/mL (0.00-0.08) Microbiology 04/21/17 Blood Culture - Final, Complete Lactobacillus Species 04/21/17 Campylobacter (PCR) - Final, Complete Not Detected 04/21/17 Clostridium difficile Toxin A&B (M) - Final, Complete Not Detected 04/21/17 Plesiomonas shigelloides (PCR) - Final, Complete Not Detected 04/21/17 Salmonella (PCR)(ÁNGELA) - Final, Complete Not Detected 04/21/17 Yersinia enterocolitica (PCR) - Final, Complete Not Detected 04/21/17 Vibrio Species (PCR) - Final, Complete Not Detected 04/21/17 Vibrio Cholerae (PCR) - Final, Complete Not Detected 04/21/17 Enteroaggregative E. coli (PCR) - Final, Complete Not Detected 04/21/17 Enteropathogenic E. coli (PCR) - Final, Complete Not Detected 04/21/17 Enterotoxigenic E. coli (PCR) - Final, Complete Not Detected 04/21/17 E. coli Shiga-like Toxin (PCR) - Final, Complete Not Detected 04/21/17 Escherichia coli 0157 (PCR) - Final, Complete Not Detected 04/21/17 Enteroinvasive E. coli/Shigella PCR - Final, Complete Not Detected 04/21/17 Cryptosporidium (PCR) - Final, Complete Not Detected 04/21/17 Cyclospora cayetanensis (PCR) - Final, Complete Not Detected 04/21/17 Entamoeba histolytica (PCR) - Final, Complete Not Detected 04/21/17 Giardia lamblia (PCR) - Final, Complete Not Detected 04/21/17 Adenovirus Type F 40/41 (PCR) - Final, Complete Not Detected 04/21/17 Astrovirus (PCR) - Final, Complete Not Detected 04/21/17 Norovirus (PCR) - Final, Complete Not Detected 04/21/17 Rotavirus A (PCR) - Final, Complete Not Detected 04/21/17 Sapovirus I/II/IV/V (PCR) - Final, Complete 04/21/17 MRSA (PCR) - Final, Complete 04/21/17 Urine Culture - Final, Complete Mixed Urogenital Payton PARENTERAL NUTRITION ORDERS 4 - Standard Hang Time: 2100 Substrates Total kcal: 1150 AMINO ACIDS 80 g DEXTROSE 200 g Total Volume (mL): 1000 LIPIDS 15 g Sterile Water for Injection mL To Infuse Over (hrs): 24 Total Volume 1000 mL At at a rate of (mL/hr): 42 Additives Sodium Chloride 60 mEq "typical" daily requirements Sodium Acetate 20 mEq Sodium 50-120mEq Potassium Chloride 20 mEq Potassium 60-120mEq Potassium Phosphate 20 mEq Phosphate 20-40mEq Calcium Gluconate 9.3 mEq Magnesium 8-32mEq Magnesium Sulfate 16 mEq Calcium 9-22mEq Acetate* 80-120mEq Chloride* 80-120mEq Regular Insulin units *Depending on acid-base status Famotidine 40 mg Multivitamins 1 std dose Insulin Regimen Trace Elements 1 std dose none Thiamine mg Regular Low Intensity Subcut Folic Acid mg Regular Medium Intensity Subcut Ascorbic Acid mg Regular High Intensity Subcut Regular Insulin Infusion Other: Mariah Preston PharmD May 01, 2017 11:27
--- NOTE | 2017-05-01 14:19 | ABG ---
DateTimeAnalyzed 14:10:00 -_ pH ____7.463 - 7.350 7.450 pCO2 ___38.1__ -mmHg 35.0 45.0 pO2 ___71.0__ -mmHg 69.0 116 HCO3- ___26.9__ -mmol/L 22.0 26.0 ABE ____3.4__ -mmol/L -2.0 2.0 tHb ____9.5__ -g/dL 12.0 18.0 O2Hb ___93.0__ -% COHb ____1.6__ -% 0.0 1.5 MetHb ____0.5__ -% 0.4 1.5 sO2 ___95.0__ -% 25.0 FIO2 ___21.0__ -% Drawn By jmw - Date/Time Notified____ 14:18:00 -_ Oxygen Device 1 _ROOM AIR - Notified By jmw - Notified Whom DR KUBISTY - B 751 -mmHg tO2 ___12.5__ -Vol% Lion test _Positive -
--- NOTE | 2017-05-01 16:05 | PROG NOTE ---
[address] [address] PROGRESS NOTE PATIENT: JOSAFAT SOLIS : 1945 MR#: [id number] ADMIT: 04/21/2017 JOB ID: [id number] DATE: 05/01/2017 SUBJECTIVE: The patient is seen in followup. He does not complain of abdominal pain or nausea today. He is not very hungry. OBJECTIVE: Temperature 36.7, pulse 97, blood pressure 129/85, saturation 95% on room air. General: He is sitting up in bed, in no acute distress. Chest; Diminished breath sounds at both bases. Heart: Regular rate and rhythm. No murmurs. Abdomen is firm, mildly distended, nontender. Wound VAC is intact to the midline wound. There is no erythema of the abdominal wall. Colostomy has some green stool in the appliance. LABS: Procalcitonin today 0.67. ASSESSMENT AND PLAN: A 71-year-old man with perforated sigmoid diverticulitis, status post Diallo procedure, complicated by sepsis which has been effectively treated with antibiotic regimen. He does not have a complete bowel obstruction but his bowels are not functioning well. Recommend ongoing TPN until he is able to take in meaningful nutrition by mouth. I would like to be present at his wound VAC change in the near future to see the status of his midline abdominal wound.
--- NOTE | 2017-05-01 16:31 | PCM.PNMED ---
Subjective Date of Service May 01, 2017 Subjective Patient is slightly drowsy after being awoken this morning. Did later come in in the morning and visit with patient and his . Exam Vital Signs Vital Sign - Last Date Time Temp Pulse Resp B/P Pulse Ox O2 Delivery O2 Flow Rate FiO2 05/01/17 15:16 116 22 92 Room Air 05/01/17 14:46 36.6 114/81 Intake and Output 04/30/17 04/30/17 05/01/17 Cumulative From/Thru 15:00 23:00 07:00 04/21/17 10:44 - 05/01/17 06:25 Intake Total 1112 ml 819 ml 04583 ml Output Total 300 ml 1344 ml 58677 ml Balance 812 ml -525 ml 24633 ml Intake Oral 200 ml 150 ml 2630 ml IV Total 327 ml 265 ml 83364 ml TPN/PPN 585 ml 404 ml 989 ml Packed Cells 301 ml Output Urine Total 300 ml 1344 ml 9859 ml Stool Total 430 ml Emesis 15 ml Drainage Total 5 ml # Voids 15 # Bowel Movements 0 0 Exam Constitutional: Elderly male in no acute distress Head: Normocephalic atraumatic Chest: Decreased breath sounds at his bases Cor: Regular rate and rhythm S1-S2 Abdomen: Soft mild diffuse tenderness, no rebound no guarding, ostomy is in place and minimal output, active bowel sounds Extremities: 2 + bilateral pedal edema Neuro: Alert and oriented 3, motor strength is intact bilaterally IVs and Medications Medications Reviewed: Medications were reviewed in detail Lab and Diagnostics Laboratory Tests 72 Hours Test 04/29/17 04:21 04/30/17 05:00 05/01/17 05:00 White Blood Count 15.0th/mm3 (3.8-10.1) Red Blood Count 2.76mil/mm3 (4.40-5.80) Hemoglobin 7.9g/dL (13.8-17.2) Hematocrit 26.1% (41.0-50.0) Mean Corpuscular Volume 94.6fL (81-100) Mean Corpuscular Hemoglobin 28.6pg (27.0-35.0) Mean Corpuscular Hemoglobin Concent 30.3% (32.0-37.0) Red Cell Distribution Width 17.2% (12.3-15.4) Platelet Count 361bil/L (150-400) Neutrophils (%) (Auto) 81% (40-74) Lymphocytes (%) (Auto) 9% (14-46) Monocytes (%) (Auto) 2% (4-12) Eosinophils (%) (Auto) 3% (0-5) Basophils (%) (Auto) 0% (0-3) Band Neutrophils % 3% (1-5) Metamyelocytes % 1% (0-0) Myelocytes % 1% (0-0) Sodium Level 138mEq/L (134-144) 137mEq/L (134-144) 137mEq/L (134-144) Potassium Level 4.1mEq/L (3.5-5.2) 4.2mEq/L (3.5-5.2) 4.5mEq/L (3.5-5.2) Chloride Level 105mEq/L (97-108) 105mEq/L (97-108) 99mEq/L (97-108) Carbon Dioxide Level 22mmol/L (18-29) 23mmol/L (18-29) 24mmol/L (18-29) Blood Urea Nitrogen 6mg/dL (8-27) 8mg/dL (8-27) 11mg/dL (8-27) Creatinine 0.50mg/dL (0.76-1.27) 0.54mg/dL (0.76-1.27) 0.58mg/dL (0.76-1.27) Estimat Glomerular Filtration Rate 175mL/min (>59) 160mL/min (>59) 147mL/min (>59) Glucose Level 132mg/dL (60-99) 133mg/dL (60-99) 139mg/dL (60-99) Calcium Level 7.4mg/dL (8.5-10.1) 7.6mg/dL (8.5-10.1) 8.2mg/dL (8.5-10.1) Phosphorus Level 2.8mg/dL (2.5-4.9) 2.5mg/dL (2.5-4.9) 3.2mg/dL (2.5-4.9) Magnesium Level 2.1mg/dL (1.6-2.6) 2.1mg/dL (1.6-2.6) 2.1mg/dL (1.6-2.6) Total Bilirubin 0.4mg/dL (0.0-1.2) 0.4mg/dL (0.0-1.2) 0.4mg/dL (0.0-1.2) Aspartate Amino Transf (AST/SGOT) 28U/L (0-50) 29U/L (0-50) 37U/L (0-50) Alanine Aminotransferase (ALT/SGPT) 11U/L (0-44) 12U/L (0-44) 13U/L (0-44) Alkaline Phosphatase 441U/L (25-160) 489U/L (25-160) 491U/L (25-160) Total Protein 3.8g/dL (6.4-8.4) 4.3g/dL (6.4-8.4) 4.5g/dL (6.4-8.4) Albumin 1.5g/dL (3.4-5.0) 1.8g/dL (3.4-5.0) 1.9g/dL (3.4-5.0) Prealbumin 7mg/dL (20-40) Procalcitonin 0.74ng/mL (0.00-0.08) 0.67ng/mL (0.00-0.08) Triglycerides Level 352mg/dL (0-149) Result Diagram: 04/29/17 0421 05/01/17 0500 Microbiology Blood cultures pending X-Rays, CTs and MRIs . X-RAY CHEST ONE VIEW, PORTABLE IMPRESSION: No acute cardiopulmonary disease. Dictated by: Darius Molina M.D. on 04/21/2017 X-RAY PICC LINE PLACEMENT BY NURSE IMPRESSION: Tip of PICC lies within the lower superior vena cava. Dictated by: Darius Molina M.D. on 04/21/2017 CT ANGIO CHEST PULMONARY EMBOLISM IMPRESSION: 1. No large pulmonary emboli. Respiratory motion artifact limits evaluation for small emboli. 2. Mild bronchial wall thickening within the bilateral infrahilar regions ( left greater than right) may represent bronchitis. 3. New/Increasing right middle lobe ground glass nodules. A three-month followup CT of the chest is recommended with contrast. 4. No lymphadenopathy within the chest. 5. 1.3 cm hypodense left thyroid nodule. Please consider a thyroid ultrasound for further evaluation Dictated by: Tarik Roe M.D. on 04/21/2017 CT ABDOMEN AND PELVIS WITH CONTRAST IMPRESSION: 1. Interval postoperative changes of the bowel with a left lower quadrant colostomy. No bowel obstruction. 2. Mild ascites and moderate mesenteric edema probably is related to interval surgery. No drainable fluid collection or definable abscess is evident. 3. Mild prominence of the vieyra of multiple loops of bowel is nonspecific. However, this appearance may be related to colitis or enteritis and clinical correlation is recommended. 4. Fluid within the rectal stump probably is within normal limits. Other: -Absent right kidney and adrenal gland. -Cholelithiasis. -Hepatic steatosis. -Pancreatic lesion is not well evaluated on this exam. -Unusual appearance of an L1 compression fracture may be related to chronic sclerosis. However, a pathologic compression fracture related to metastatic lesion is difficult to exclude. Dictated by: Tarik Roe M.D. on 04/21/2017 Additional Diagnostics DateTimeAnalyzed 14:02:00 -_ pH ____7.474 - 7.350 7.450 pCO2 ___27.7__ -mmHg 35.0 45.0 pO2 107 -mmHg 69.0 116 HCO3- ___20.1__ -mmol/L 22.0 26.0 ABE ___-2.7__ -mmol/L -2.0 2.0 tHb ____7.0__ -g/dL 12.0 18.0 O2Hb ___96.2__ -% COHb ____1.6__ -% 0.0 1.5 MetHb ____0.5__ -% 0.4 1.5 sO2 ___98.3__ -% 25.0 FIO2 ___32.0__ -% Drawn By as - Date/Time Notified____ 14:08:00 -_ Spontaneous_RR ___26.0__ -b/min Liter_Flow ____3.0__ -L/min Oxygen Device 1 __CANNULA - Notified By AMS - Notified Whom DR OKELLY - B 756 -mmHg tO2 ____9.7__ -Vol% Lion test _Positive - Assessment & Plan Patient is a 71-year-old male with a recent history of partial colectomy secondary to intra-abdominal abscess, diverticular disease readmission for septic shock, currently improving on antibiotics. #. Acute intraabdominal inflammation and infection, present on admission and slowly improving. -recent ruptured diverticular s/p sigmoid colectomy and colostomy (03/24-04/19) -Wound VAC in place, reported to have been changed on day of admission. -Cultures, viral PCR have been negative thus far. -Infectious Disease Dr. Lozoya consulted -Continue Levaquin, Zosyn and micafungin. D/C daptomycin given the negative VRE /MRSA -Procalcitonin falls ~1/2 daily -Surgery has been consulted and following -Recommend optimize medical management, started TPN We will discuss duration of empiric antibiotics with infectious disease on Monday, May 01. #. Postoperative ileus, new and active. Continue supportive TPN and follow clinically. He is taking small amounts of full liquid diet. #. Severe protein malnutrition, present on admission, active -2nd to recent major surgery, poor po intake -prealbumin 3, albumin 1.7 -We will continue patient on full liquid nectar thick diet -Total parenteral nutrition started 04/28/2017 normal will continue for now. -Monitor stool output #. Abdominal pain, present on admission and improving. -Likely surgical wound, intra-abdominal infection, possible ileus, possible small bowel obstruction -Dilated small bowel with air-fluid level on CT abdomen and pelvis -Positive bowel sounds, passing gas and small amount of stool. -Conservative management -Clear liquid diet -Hydrate with NS 90 mL/h total No other changes. #. Paroxysmal Sinus tachycardia, present on admission and resolved. -Etiology unknown, possible sepsis -Cardizem 30 mg 3 times a day, will continue -EKG with runs of tachycardia This seems to be resolved on his diltiazem 30 mg 3 times a day. No changes. #. Septic shock, present on admission and resolved. -lactic acid 7.8, tachypneic, tachycardic, leukocytosis with presumed source of abdominal infection, and AMS requiring brief pressor support. -Possible gallbladder disease given enlargement with stones with elevated LFT , HIDA positive for reduce ejection fraction system with chronic cholecystitis. -No intervention per IR/surgery -broad spec abx on board and continues -Continue to follow clinically. #. Septic encephalopathy, not present on admission, active and stable -wax-wane mentation -Seroquel 25mg nightly No further changes at this time. #. Transaminitis, present on admission and active Patient has had high normal Alk Phosm 915, prior to discharge 04/17/2017 alkaline phosphatase 1181. AST mildly elevated -Ultrasound of the abdomen 04/07/2017 (last admission) shows a prominent gallbladder (4.2 mm), HIDA scan & MRCP 04/05 clear -HIDA scan obtained on 04/05 shows no evidence of acute cholecystitis. Results as above -IR recommends no additional imaging studies at this point -monitor with TPN initiation. #. Normocytic anemia, present on admission, stable. -Hemoglobin 9.2 on admit prior to fluid administration, and globin Route level approximately 7.5 average during last admission -Consider transfusion if patient remains less than 7.0 -Continue to monitor #. COPD, present on admission, stable -O2 support as needed -Duoneb prn , no changes. #. Coronary artery disease, chronic. Present on admission. stable. -History of prior [place] requiring two stents. -Hold home statin secondary to elevated LFTs -Hold home meds #. Renal cell carcinoma of right kidney, chronic. Presumed stable. -Pt is s/p nephrectomy in October 2016, previously treated with Pazopanib and dexamethasone. -Per recommendations of oncology from prior admission Pazopanib and dexamethasone may be held for 4-6 weeks while patient stabilizes. -CT abd/pelvis renal cyst as above -Hold home meds -Follow up with Oncology as outpatient in 1-2 weeks to deterimine when to resume Pazopanib and dexamethasone. #. Elevated troponins. Unknown significance. Continue to monitor -EKG showed sinus tachycardia with an old inferior infarct -Initial troponin elevated 0.045 trended down -stressed induced #. Respiratory alkalosis with metabolic acidosis. Present on admission. resolved. -2nd to sepsis, lactic acid #. Essential Hypertension, chronic. Present on admission and not active. -Currently hypotensive, requiring blood pressure support -Hold home meds #. Diabetes mellitus, type 2, Present on admission. Presumed stable. -A1c 5.6 -blood glucose low 100' Disposition: Patient will likely go back to [facility] once he becomes medically stable and improved. I believe he will be in the hospital at least through May 05 GI Prophylaxis: H2 saw VTE Prophylaxis: Sub-Q Heparin (Unfractionated) VTE Mechanical Devices: Intermittant Pneumatic CD Resuscitation Status: CPR: Attempt Resuscitation Adela Thomas MD May 01, 2017 16:31
[2017-05-01] MEDS: Furosemide 10 mg/mL 4 mL Inj IVPUSH SCH (18:26)
[2017-05-01] MEDS: 0.9% Sodium Chloride 250 ML IV SCH (18:26)
--- NOTE | 2017-05-01 18:42 | PCM.ADCARE ---
Advance Care Planning Note Purpose of Encounter: Goals of care Parties in Attendance: Myself, patient, Decisional Capacity: is has decisional capacity and DPOA Subjective: Patient has been hospitalized recurrently in the hospital please see progress note from today his quality of life has been limited by his continuing medical issues. Objective: See progress note for today Goals of Care Determinations: DNR/DNI with interventions to be done which can provide better quality of life Plan: Continue with any interventions which will improve quality of life CODE STATUS: DNR/DNI Time Spent Adv.Care Plannin minutes Adv. Care Plan Documenation: Documented in EMR Adela Thomas MD May 01, 2017 18:42
--- NOTE | 2017-05-01 19:07 | NUR ---
Activity Patient bedrest this shift. Heart rate 135 when PT was in with patient. Q2 turns. TPN running. Patient refused full liquid NT diet. Patient denies pain and nausea this shift. Call light and tray table within reach. Will continue to monitor patient hourly.
[2017-05-01] MEDS: Micafungin Inj 150 MG in 0.9% Sodium Chloride 100 ML IV SCH (20:06)
[2017-05-01] MEDS: Total Parenteral Nutrition 1 BAG IV SCH (21:36)
[2017-05-01] MEDS: levoFLOXacin Inj 750 MG in IV Premix 1 EACH IV SCH (21:37)
[2017-05-02] VITALS (9 sets, daily range): BP systolic 98–120; BP diastolic 64–84; PULSE 99–114; RESP 18–20; O2SAT 94–96
[2017-05-02] MEDS: Sodium Chloride LOK Flush 10 mL Syringe IVFLUSH SCH ×3 (00:30→17:29)
[2017-05-02] MEDS: Albuterol-Ipratropium 3 mL Inhalation Solution NEB SCH ×5 (02:30→22:16)
--- NOTE | 2017-05-02 03:21 | NUR ---
General Pt noted with improved respiratory function this shift so far. Less wheezes and less use of accessory muscles during respiration. Took few sips of nectar thick fluid. TPN running per orders with no issue. Repositioned Q2 hrs and as tolerated. still has some mumbly when speaking but voice is much clear today compare to last night. Will continue to monitor.
[2017-05-02 05:15] LABS: BASOPHILS % (AUTO) 0.2 % (0-3); EOSINOPHILS % (AUTO) 1.9 % (0-5); Mean Corpuscular Hemoglobin 28.6 pg (27.0-35.0); Mean Corpuscular Volume 93.4 fL (81-100); Platelet Count 491 bil/L (150-400)
[2017-05-02 05:39] LABS: NEUTROPHILS % (AUTO) 82 % (40-74)
[2017-05-02 05:56] LABS: Phosphorus 3.3 mg/dL (2.5-4.9)
[2017-05-02] MEDS: Piperacillin-Tazo 3.375 Gm Inj 3.375 GM in Dextrose 5% Minibag Plus 50 ML IV SCH ×3 (06:02→23:26)
--- NOTE | 2017-05-02 07:50 | PCM.PNMED ---
Subjective Date of Service May 02, 2017 Subjective Patient seen and examined. Does not complain of pain. Vitals noted. Exam Vital Signs Vital Sign - Last Date Time Temp Pulse Resp B/P Pulse Ox O2 Delivery O2 Flow Rate FiO2 05/02/17 06:11 36.9 114 18 118/84 96 Room Air Intake and Output 05/01/17 05/01/17 05/02/17 Cumulative From/Thru 15:00 23:00 07:00 04/21/17 10:44 - 05/02/17 06:11 Intake Total 658 ml 150 ml 18077 ml Output Total 1163 ml 52226 ml Balance 658 ml -1013 ml 06443 ml Intake Oral 150 ml 2780 ml IV Total 143 ml 99486 ml TPN/PPN 515 ml 1504 ml Packed Cells 301 ml Output Urine Total 1163 ml 88164 ml Stool Total 430 ml Emesis 15 ml Drainage Total 5 ml # Voids 15 # Bowel Movements 0 0 Exam Constitutional: Elderly male in no acute distress Head: Normocephalic atraumatic Chest: Decreased breath sounds at his bases, diffuse wheezing Cor: Regular rate and rhythm S1-S2 Abdomen: Soft mild diffuse tenderness, no rebound no guarding, ostomy is in place and minimal output, active bowel sounds Extremities: 2 + bilateral pedal edema Neuro: Alert and oriented 3, motor strength is intact bilaterally Lab and Diagnostics Result Diagram: 05/02/17 0511 05/02/17 0511 Microbiology Blood cultures pending X-Rays, CTs and MRIs . X-RAY CHEST ONE VIEW, PORTABLE IMPRESSION: No acute cardiopulmonary disease. Dictated by: Darius Molina M.D. on 04/21/2017 X-RAY PICC LINE PLACEMENT BY NURSE IMPRESSION: Tip of PICC lies within the lower superior vena cava. Dictated by: Darius Molina M.D. on 04/21/2017 CT ANGIO CHEST PULMONARY EMBOLISM IMPRESSION: 1. No large pulmonary emboli. Respiratory motion artifact limits evaluation for small emboli. 2. Mild bronchial wall thickening within the bilateral infrahilar regions ( left greater than right) may represent bronchitis. 3. New/Increasing right middle lobe ground glass nodules. A three-month followup CT of the chest is recommended with contrast. 4. No lymphadenopathy within the chest. 5. 1.3 cm hypodense left thyroid nodule. Please consider a thyroid ultrasound for further evaluation Dictated by: Tarik Roe M.D. on 04/21/2017 CT ABDOMEN AND PELVIS WITH CONTRAST IMPRESSION: 1. Interval postoperative changes of the bowel with a left lower quadrant colostomy. No bowel obstruction. 2. Mild ascites and moderate mesenteric edema probably is related to interval surgery. No drainable fluid collection or definable abscess is evident. 3. Mild prominence of the vieyra of multiple loops of bowel is nonspecific. However, this appearance may be related to colitis or enteritis and clinical correlation is recommended. 4. Fluid within the rectal stump probably is within normal limits. Other: -Absent right kidney and adrenal gland. -Cholelithiasis. -Hepatic steatosis. -Pancreatic lesion is not well evaluated on this exam. -Unusual appearance of an L1 compression fracture may be related to chronic sclerosis. However, a pathologic compression fracture related to metastatic lesion is difficult to exclude. Dictated by: Tarik Roe M.D. on 04/21/2017 Additional Diagnostics DateTimeAnalyzed 14:02:00 -_ pH ____7.474 - 7.350 7.450 pCO2 ___27.7__ -mmHg 35.0 45.0 pO2 107 -mmHg 69.0 116 HCO3- ___20.1__ -mmol/L 22.0 26.0 ABE ___-2.7__ -mmol/L -2.0 2.0 tHb ____7.0__ -g/dL 12.0 18.0 O2Hb ___96.2__ -% COHb ____1.6__ -% 0.0 1.5 MetHb ____0.5__ -% 0.4 1.5 sO2 ___98.3__ -% 25.0 FIO2 ___32.0__ -% Drawn By as - Date/Time Notified____ 14:08:00 -_ Spontaneous_RR ___26.0__ -b/min Liter_Flow ____3.0__ -L/min Oxygen Device 1 __CANNULA - Notified By AMS - Notified Whom DR OKELLY - B 756 -mmHg tO2 ____9.7__ -Vol% Lion test _Positive - Assessment & Plan Patient is a 71-year-old male with a recent history of partial colectomy secondary to intra-abdominal abscess, diverticular disease readmission for septic shock, currently improving on antibiotics. #. Acute intraabdominal inflammation and infection, present on admission and slowly improving. -recent ruptured diverticular s/p sigmoid colectomy and colostomy (03/24-04/19) -Wound VAC in place, reported to have been changed on day of admission. -Cultures, viral PCR have been negative thus far. -Infectious Disease Dr. Lozoya consulted -Continue Levaquin, Zosyn and micafungin. D/C daptomycin given the negative VRE /MRSA -Procalcitonin trending down, plan to dc abx once pc < 0.50 -Surgery has been consulted and following -Recommend optimize medical management, started TPN #. Postoperative ileus, new and active. Continue supportive TPN and follow clinically. He is taking small amounts of full liquid diet. #. Severe protein malnutrition, present on admission, active -2nd to recent major surgery, poor po intake -prealbumin 3, albumin 1.7 -We will continue patient on full liquid nectar thick diet -Total parenteral nutrition started 04/28/2017 normal will continue for now. -Monitor stool output #. Abdominal pain, present on admission and improving. -Likely surgical wound, intra-abdominal infection, possible ileus, possible small bowel obstruction -Dilated small bowel with air-fluid level on CT abdomen and pelvis -Positive bowel sounds, passing gas and small amount of stool. -Conservative management -Clear liquid diet No other changes. #. Paroxysmal Sinus tachycardia, present on admission and resolved. -Etiology unknown, possible sepsis -Cardizem 30 mg 3 times a day, will continue -EKG with runs of tachycardia This seems to be resolved on his diltiazem 30 mg 3 times a day. No changes. #. Septic shock, present on admission and resolved. -lactic acid 7.8, tachypneic, tachycardic, leukocytosis with presumed source of abdominal infection, and AMS requiring brief pressor support. -Possible gallbladder disease given enlargement with stones with elevated LFT , HIDA positive for reduce ejection fraction system with chronic cholecystitis. -No intervention per IR/surgery -broad spec abx on board and continues - patient is fluid overloaded after the resuscitation , on lasix bid for now -Continue to follow clinically. #. Septic encephalopathy, not present on admission, active and stable -wax-wane mentation -Seroquel 25mg nightly No further changes at this time. #. Transaminitis, present on admission and active Patient has had high normal Alk Phosm 915, prior to discharge 04/17/2017 alkaline phosphatase 1181. AST mildly elevated -Ultrasound of the abdomen 04/07/2017 (last admission) shows a prominent gallbladder (4.2 mm), HIDA scan & MRCP 04/05 clear -HIDA scan obtained on 04/05 shows no evidence of acute cholecystitis. Results as above -IR recommends no additional imaging studies at this point -monitor with TPN initiation. #. Normocytic anemia, present on admission, stable. -Hemoglobin 9.2 on admit prior to fluid administration, and globin Route level approximately 7.5 average during last admission -Consider transfusion if patient remains less than 7.0 -Continue to monitor #. COPD, present on admission, stable -O2 support as needed -Duoneb prn , no changes. #. Coronary artery disease, chronic. Present on admission. stable. -History of prior ME requiring two stents. -Hold home statin secondary to elevated LFTs -Hold home meds #. Renal cell carcinoma of right kidney, chronic. Presumed stable. -Pt is s/p nephrectomy in October 2016, previously treated with Pazopanib and dexamethasone. -Per recommendations of oncology from prior admission Pazopanib and dexamethasone may be held for 4-6 weeks while patient stabilizes. -CT abd/pelvis renal cyst as above -Hold home meds -Follow up with Oncology as outpatient in 1-2 weeks to deterimine when to resume Pazopanib and dexamethasone. #. Elevated troponins. Unknown significance. Continue to monitor -EKG showed sinus tachycardia with an old inferior infarct -Initial troponin elevated 0.045 trended down -stressed induced #. Respiratory alkalosis with metabolic acidosis. Present on admission. resolved. -2nd to sepsis, lactic acid #. Essential Hypertension, chronic. Present on admission and not active. -Currently hypotensive, requiring blood pressure support -Hold home meds #. Diabetes mellitus, type 2, Present on admission. Presumed stable. -A1c 5.6 -blood glucose low 100' Disposition: Patient will likely go back to [facility] once he becomes medically stable and improved. I believe he will be in the hospital at least through May 05 GI Prophylaxis: H2 saw VTE Prophylaxis: Sub-Q Heparin (Unfractionated) VTE Mechanical Devices: Intermittant Pneumatic CD Resuscitation Status: CPR: Attempt Resuscitation Time spent 35 mins Loyd Sage MD May 02, 2017 07:50
[2017-05-02] MEDS: TPN Per Pharmacist XX SCH (08:30)
[2017-05-02] MEDS: Furosemide 10 mg/mL 4 mL Inj IVPUSH SCH ×2 (09:02→17:29)
--- NOTE | 2017-05-02 10:03 | PROG NOTE ---
[address] [address] PROGRESS NOTE PATIENT: JOSAFAT SOLIS : 1945 MR#: [id number] ADMIT: 04/21/2017 JOB ID: [id number] DATE: 05/02/2017 REASON FOR FOLLOWUP: Intra-abdominal source of sepsis, resolving. INTERVAL HISTORY: This morning, the patient is the most alert I have seen him during either of his two hospital stays. He is fully oriented, interactive and making jokes with the nurses and medical staff. He reports no significant abdominal pain, fevers, chills or shortness of breath. He does state his appetite is poor, though he is requesting a T-bone steak. His colostomy output continues to be lacking. PHYSICAL EXAMINATION: Reveals an afebrile, much more alert gentleman. Temp 36.8, pulse 102, respiratory rate 20, blood pressure 106/67. He is saturating well on room air. He is in no acute distress. His mental status, as noted, is much improved. Oral cavity without notable abnormality except dry mucous membranes. Lungs relatively clear. Cardiac tones without new murmur. Abdomen soft and nontender. Colostomy is present as is the midline lower abdominal wound VAC. LABORATORIES: Include white count 20,000, which is actually continuing to increase. Platelet count has also jumped to 491. Neutrophils 82%. Lymphs 6%, and 1% metamyelocytes. There are no new microbiology studies. IMAGING: Most recent imaging was a chest x-ray done the , which showed some bilateral atypical infiltrates which are likely related to fluid overload. Note that the patient is up 13 kg since admission, though at least down one from yesterday. IMPRESSION: This is a complicated case of a gentleman with a ruptured viscus back in March, who received a colostomy and a wound VAC, and was discharged only to be readmitted with an extremely elevated procalcitonin and obvious sepsis. He is now in his 12th hospital day following his readmission, and is rapidly improving except for the fact that he has very poor p.o. intake and very little colostomy output. There continue to be questions about possible partial bowel obstructions. Additionally, it is notable that his white count is actually going up, even as he is afebrile and his procalcitonin is declining. RECOMMENDATIONS: 1. Will go ahead and stop his levofloxacin. 2. Will continue with the Zosyn and micafungin at least overnight as we continue to observe the patient and his progress. 3. Will repeat a procalcitonin tomorrow. We continue to use this as a surrogate marker for his resolving presumably bacterial infection with the plan to stop in the near future, depending on his overall course, white count and platelet count.
--- NOTE | 2017-05-02 11:14 | NUR ---
Inpatient Wound and Ostomy Nurse Patient seen for NPWT change and ostomy change. Patient had accumulated 200 ml in 7 days (from 04/21 to 04/28), then another 220 from 04/28 to today (05/02), indicating an increase in drainage despite decrease of suction from 125 to 100 four days ago.Today vac cannister is noted with milky, opague fluid, slightly pink tinged. A layer of orange is noted on top of this opaque layer. CWON RN questions possibility of TPN in cannister and has alerted Dr. Linder (who is not on-call today) and Dr. Sagastume (who will see patient tabatha later today). Wound bed granulating, beefy red, very minimal area (<0.5 cm L x <0.5 cm W) area of yellow slough noted in LLQ of wound bed. Black foam was thoroughly saturated for removal and white foam plugs in wound pockets pulled out easily. Both pockets have increased in depth. The most distal pocket is now 6 cm deep (was 3 cm four days ago). The proximal pocket is 3 cm deep (was 2.5 cm four days ago). The floor of the proximal pocket was scraped with a wooden end of Q tip and thick, park residue was noted. Until seen by surgery, wound is packed with wet to moist gauze and 4x4 Mepliex dressing. An area of previously unnoticed fading bruising is noted on L lateral trunk, lateral of ostomy. Prior ARCELIA site in URQ is improved, <0.5 cm L x 0.5 cm W, thin yellow slough, covered with small piece of hydrocolloid. Patient continues on Monday - Monday ostomy system change schedule. Small amount of dark green, very thin fluid noted in pouch. His skin has responded well to Coloplast wafer which has hydrocolloid backing. An area 1 cm L x 1 cm w of bright red tissue remains under wafer at cusp of convexity. Otherwise stoma and peristomal skin is healthy and intact. Coloplast wafer and pouch applied without challenge.
--- NOTE | 2017-05-02 12:26 | NUR ---
NUTRITION FOLLOW-UP: ASSESS: Pt is a 71 YO male admitted with severe sepsis. Pt was recently discharged from [facility] with abdominal abscess secondary to ruptured diverticula requiring sigmoid colectomy and colostomy, now with intraabdominal infection, requiring Wound Vac. He does state his appetite is poor, though he is requesting a T-bone steak. His colostomy output continues to be poor; post-op ileus likely. TPN continues well tolerated, despite Alk Phos 535 and Triglycerides 352. Patient has had high normal Alk Phos 915 prior to discharge 04/17/2017. Ultrasound of the abdomen 04/07/2017 (last admission) shows a prominent gallbladder (4.2 mm), HIDA scan & MRCP 04/05 clear. -HIDA scan obtained on 04/05 shows no evidence of acute cholecystitis. PMHx: CAD, COPD, renal cell carcinoma of right kidney s/p nephrectomy in October 2016, type II diabetes, HTN, dyslipidemia, heartburn, hiatal hernia, GI bleed, sigmoid colectomy with descending colostomy 03/24/2017. DIET: Full Liquid. Pt reporting minimal appetite. PO intake last several days refusal to bites only trays. TPN:200 g dextrose, 80 g AA,15 g lipids to provide 1150 kcal, 80 g protein, meeting 50% kcal / 64% protein needs. LABS:Reviewed. Chloride 96, Cr 0.69, Glu 119, Ca 8.1, Alk Phos 535, Alb 1.9, Triglycerides 352. MEDICATIONS: Reviewed. Lasix, seroquel. GI symptoms / stool: Low output via colostomy. Skin Integrity: Patient accumulated 200 ml in 7 days (from 04/21 to 04/28), then another 220 from 04/28 to today (05/02), indicating an increase in drainage despite decrease of suction from 125 to 100 four days ago. Today vac cannister is noted with milky, opague fluid, slightly pink tinged. A layer of orange is noted on top of this opaque layer. SUMIT RN questions possibility of TPN in cannister and has alerted Dr. Sagastume who will see patient later today. Wound bed granulating, beefy red, very minimal area of yellow slough noted in LLQ of wound bed. Both pockets have increased in depth. ANTHROPOMETRICS: Current Wt: 93.0 kg, BMI: 26.0 kg/m2, admit wt 80.5 kg IBW: 86.3 kg, UBW: 92 kg, 6.5% wt loss x1 month. ESTIMATED NEEDS (SEVERE MALNUTRITION, WOUNDS): Calories: 5613-8825 kcal (25 - 30 kcal / kg BW) Protein: 105-130g protein (1.2-1.5 g / kg BW) Fluids: ~2165-2595ml/day (25-30ml/kg) NUTRITION DIAGNOSIS: 1) Inadequate oral intake related altered gi function/ileus as evidence by PO on full Liquids at 15-25% - PERSISTS DESPITE DIET ADVANCE TO FULL LIQUIDS. 2) Severe pro/kcal malnutrition in the context of acute illness as evidence by altered gi function as evidence by PO intake of <50% of estimated energy requirements for >5days, 6.5% wt loss x1 month - PERSISTS. INTERVENTION: 1) Diet advanced to soft with nectar thick liquids today. Will add appropriate supplements to trays. 2) Goal TPN of: 260 g Dex, 105 g AA and 20 g lipids to provide 1505 kcal and 105 g pro (~70% kcal and 100% pro needs). Goal TPN meets 70% kcal needs due to pt on mechanical altered diet. 3) Will monitor PO intake and adjust goal rate accordingly. 4) Recommend monitor pts Liver labs closely. If labs trend up, recommend cycle lipids three days a week or possibly running TPN x12 hrs/day rather than 24 hrs. MONITOR/EVALUATE: PO intake, diet advance, TPN tolerance / advance, GI status, labs, weight, and nutrition status. Follow up per high nutrition risk guidelines.
--- NOTE | 2017-05-02 15:46 | PROG NOTE ---
[address] [address] PROGRESS NOTE PATIENT: JOSAFAT SOLIS : 1945 MR#: [id number] ADMIT: 04/21/2017 JOB ID: [id number] DATE: 05/02/2017 SUBJECTIVE: The patient is seen in followup. I was called earlier by Clau Hernandez from the Wound Service stating that there was "TPN in the wound." Explained to her that TPN cannot likely be in the wound but understood the concern for possible fistula. Recommended that the Wound VAC be discontinued and wet-to-dry dressing be placed. The patient is not complaining of abdominal pain. He has no nausea. OBJECTIVE: Temperature is 36.8, pulse 111, blood pressure 98/68, saturation 94% on room air. General: He is resting in bed in no acute distress. Chest: Diminished breath sounds both bases. Heart: Regular rate and rhythm, tachycardia. Abdomen is distended but nontender. There is no erythema of the abdominal wall. Wet-to-dry packing was removed and the midline abdominal wound was inspected. There are two openings which extend to the abdominal fascia but there does not appear to be any fascial dehiscence. There is no pooling of enteric material. There is minimal granulation tissue. There is no erythema of the surrounding skin. The colostomy appliance was changed and the stoma itself is pink and protrudes appropriately. LABORATORIES: White blood cell count 20.1, hematocrit 27.1, platelets 491. ASSESSMENT AND PLAN: A 71-year-old man status post Diallo procedure for perforated sigmoid diverticulitis with feculent peritonitis. He continues to have persistent tachycardia and now rising leukocytosis, although on the other hand, procalcitonin has dropped appropriately, consistent with treated bacterial infection, and his last procalcitonin level today was 0.58, essentially 0. Recommend giving him a break from abdominal Wound VAC until it is clear one way or another if he has any enteric material coming from the wound or not. To help clarify the issue, abdominal CT could be repeated again in the near future with oral contrast to look for evidence of fistula. TPN should be continued.
[2017-05-02] MEDS: 0.9% Sodium Chloride 250 ML IV SCH (18:24)
--- NOTE | 2017-05-02 18:37 | NUR ---
Communication/Activity Patient able to communicate better today.Patient standing at bedside with PT. Patient up to chair with lift. Denied pain and nausea this shift. Wound vac removed this shift. Patient Q2 turn. Call light and tray table within reach. Will continue to monitor patient hourly.
[2017-05-02] MEDS: Micafungin Inj 150 MG in 0.9% Sodium Chloride 100 ML IV SCH (21:03)
[2017-05-02] MEDS: Total Parenteral Nutrition 1 BAG IV SCH (21:14)
[2017-05-03] VITALS (9 sets, daily range): BP systolic 96–114; BP diastolic 62–72; PULSE 89–110; RESP 18–22; O2SAT 94–98
[2017-05-03] MEDS: Sodium Chloride LOK Flush 10 mL Syringe IVFLUSH SCH ×3 (00:30→16:21)
--- NOTE | 2017-05-03 03:01 | NUR ---
V Tach Per microcomputer technician, at 0250 patient had 9 beats of Vtach. Patient asymptomatic. BP 106/67 with HR 94.
--- NOTE | 2017-05-03 03:02 | NUR ---
Activity On initial assessment, patient denied any pain. Patient sitting up in chair but requested to go back to bed. Louis lift used to transfer patient back to the bed. PM medications administered. Colostomy bag empty. Abdominal dressings CDI. Call light within reach. Hourly rounding and care continues.
[2017-05-03 05:23] LABS: BASOPHILS % (AUTO) 0.4 % (0-3); EOSINOPHILS % (AUTO) 1.5 % (0-5); MONOCYTES % (AUTO) 6.4 % (4-12); Mean Corpuscular Hemoglobin 28.3 pg (27.0-35.0); Mean Corpuscular Volume 92.2 fL (81-100); Platelet Count 427 bil/L (150-400)
[2017-05-03] MEDS: Piperacillin-Tazo 3.375 Gm Inj 3.375 GM in Dextrose 5% Minibag Plus 50 ML IV SCH (06:06)
--- NOTE | 2017-05-03 06:36 | NUR ---
Abdomen Patients abdomen is firm and distended. Mid abdomen and left side more so than the right side. Patient denies pain. Colostomy bag full at 0600 assessment. Mid lower abdomen dressing changed. Wound draining greenish fluid.
--- NOTE | 2017-05-03 07:19 | PROG NOTE ---
[address] [address] PROGRESS NOTE PATIENT: JOSAFAT SOLIS : 1945 MR#: [id number] ADMIT: 04/21/2017 JOB ID: [id number] DATE: 05/03/2017 SUBJECTIVE: The patient is seen in followup. He was noted overnight to have some green-stained fluid running down both sides of his abdomen, onto his gown, which was changed. The outer layer of his abdominal dressing, the Mepilex, was changed, but not the gauze packing. He had a large output of green stool from his colostomy. OBJECTIVE: Temperature 36.6, pulse 102, blood pressure 98/62, saturation 96% on room air. General: Chronically ill-appearing, resting in bed. Chest: Diminished breath sounds at both bases. Heart: Regular rate and rhythm. No murmurs. Abdomen is firm, mildly distended. The colostomy has a large amount of green stool. The abdominal wall has no erythema. The midline wound packing was removed and changed. The packing itself has no green fluid, only a tiny amount of serosanguineous staining. The wound was re-packed with wet-to-dry gauze. LABORATORIES: White count 17.1, hematocrit 28.3, platelets 427. Albumin 2.1. Procalcitonin 0.52. ASSESSMENT AND PLAN: A 71-year-old man with perforated sigmoid diverticulitis with feculent peritonitis, status post Diallo's procedure. Abdominal wound VAC was removed yesterday because of concern for possible enterocutaneous fistula. Today, I see no evidence of fistula, but we will continue to watch closely for that. TPN should be continued. We will do dressing changes with wet-to-dry gauze to the midline wound twice a day.
--- NOTE | 2017-05-03 08:05 | PCM.PNMED ---
Subjective Date of Service May 03, 2017 Subjective Patient seen and examined. Alert but not oriented. Vitals stable. Exam Vital Signs Vital Sign - Last Date Time Temp Pulse Resp B/P Pulse Ox O2 Delivery O2 Flow Rate FiO2 05/03/17 04:55 36.6 102 20 98/62 96 Room Air Intake and Output 05/02/17 05/02/17 05/03/17 Cumulative From/Thru 15:00 23:00 07:00 04/21/17 10:44 - 05/03/17 06:05 Intake Total 1137 ml 656 ml 734 ml 26546 ml Output Total 1291 ml 57539 ml Balance 1137 ml 656 ml -557 ml 34068 ml Intake Oral 320 ml 0 ml 3100 ml IV Total 368 ml 121 ml 227 ml 00975 ml TPN/PPN 769 ml 215 ml 507 ml 2995 ml Packed Cells 301 ml Output Urine Total 541 ml 60946 ml Stool Total 750 ml 1180 ml Emesis 15 ml Drainage Total 5 ml # Voids 3 18 # Bowel Movements 0 0 0 Exam Constitutional: Elderly male in no acute distress Head: Normocephalic atraumatic Chest: Decreased breath sounds at his bases, diffuse wheezing Cor: Regular rate and rhythm S1-S2 Abdomen: Soft mild diffuse tenderness, no rebound no guarding, ostomy is in place and minimal output, active bowel sounds Extremities: 2 + bilateral pedal edema (improving) Neuro: Alert and oriented 3, motor strength is intact bilaterally Lab and Diagnostics Result Diagram: 05/03/17 0500 05/03/17 0500 Microbiology Blood cultures pending X-Rays, CTs and MRIs . X-RAY CHEST ONE VIEW, PORTABLE IMPRESSION: No acute cardiopulmonary disease. Dictated by: Darius Molina M.D. on 04/21/2017 X-RAY PICC LINE PLACEMENT BY NURSE IMPRESSION: Tip of PICC lies within the lower superior vena cava. Dictated by: Darius Molina M.D. on 04/21/2017 CT ANGIO CHEST PULMONARY EMBOLISM IMPRESSION: 1. No large pulmonary emboli. Respiratory motion artifact limits evaluation for small emboli. 2. Mild bronchial wall thickening within the bilateral infrahilar regions ( left greater than right) may represent bronchitis. 3. New/Increasing right middle lobe ground glass nodules. A three-month followup CT of the chest is recommended with contrast. 4. No lymphadenopathy within the chest. 5. 1.3 cm hypodense left thyroid nodule. Please consider a thyroid ultrasound for further evaluation Dictated by: Tarik Roe M.D. on 04/21/2017 CT ABDOMEN AND PELVIS WITH CONTRAST IMPRESSION: 1. Interval postoperative changes of the bowel with a left lower quadrant colostomy. No bowel obstruction. 2. Mild ascites and moderate mesenteric edema probably is related to interval surgery. No drainable fluid collection or definable abscess is evident. 3. Mild prominence of the vieyra of multiple loops of bowel is nonspecific. However, this appearance may be related to colitis or enteritis and clinical correlation is recommended. 4. Fluid within the rectal stump probably is within normal limits. Other: -Absent right kidney and adrenal gland. -Cholelithiasis. -Hepatic steatosis. -Pancreatic lesion is not well evaluated on this exam. -Unusual appearance of an L1 compression fracture may be related to chronic sclerosis. However, a pathologic compression fracture related to metastatic lesion is difficult to exclude. Dictated by: Tarik Roe M.D. on 04/21/2017 Additional Diagnostics DateTimeAnalyzed 14:02:00 -_ pH ____7.474 - 7.350 7.450 pCO2 ___27.7__ -mmHg 35.0 45.0 pO2 107 -mmHg 69.0 116 HCO3- ___20.1__ -mmol/L 22.0 26.0 ABE ___-2.7__ -mmol/L -2.0 2.0 tHb ____7.0__ -g/dL 12.0 18.0 O2Hb ___96.2__ -% COHb ____1.6__ -% 0.0 1.5 MetHb ____0.5__ -% 0.4 1.5 sO2 ___98.3__ -% 25.0 FIO2 ___32.0__ -% Drawn By as - Date/Time Notified____ 14:08:00 -_ Spontaneous_RR ___26.0__ -b/min Liter_Flow ____3.0__ -L/min Oxygen Device 1 __CANNULA - Notified By AMS - Notified Whom DR OKELLY - B 756 -mmHg tO2 ____9.7__ -Vol% Lion test _Positive - Assessment & Plan Patient is a 71-year-old male with a recent history of partial colectomy secondary to intra-abdominal abscess, diverticular disease readmission for septic shock, currently improving on antibiotics. #. Acute intraabdominal inflammation and infection, present on admission and slowly improving. -recent ruptured diverticular s/p sigmoid colectomy and colostomy (03/24-04/19) -Wound VAC taken out yesterday due to concerns for fistula, assessed by surgery : no fistula -Cultures, viral PCR have been negative thus far. -Infectious Disease Dr. Lozoya consulted -On Zosyn and micafungin. D/C's levo -Procalcitonin trending down, plan to dc abx once pc < 0.50 -Surgery on board, continue TPN #. Postoperative ileus, new and active. Continue supportive TPN and follow clinically. He is taking small amounts of full liquid diet. #. Severe protein malnutrition, present on admission, active -2nd to recent major surgery, poor po intake -prealbumin 3, albumin 1.7, improving with TPN -We will continue patient on full liquid nectar thick diet -Total parenteral nutrition started 04/28/2017 normal will continue for now. -Monitor stool output #. Abdominal pain, present on admission and improving. -Likely surgical wound, intra-abdominal infection, possible ileus, possible small bowel obstruction -Dilated small bowel with air-fluid level on CT abdomen and pelvis -Positive bowel sounds, passing gas and small amount of stool. -Conservative management -Clear liquid diet No other changes. #. Paroxysmal Sinus tachycardia, present on admission and resolved. -Etiology unknown, possible sepsis -Cardizem 30 mg 3 times a day, will continue -EKG with runs of tachycardia This seems to be resolved on his diltiazem 30 mg 3 times a day. No changes. #. Septic shock, present on admission and resolved. -lactic acid 7.8, tachypneic, tachycardic, leukocytosis with presumed source of abdominal infection, and AMS requiring brief pressor support. -Possible gallbladder disease given enlargement with stones with elevated LFT , HIDA positive for reduce ejection fraction system with chronic cholecystitis. -No intervention per IR/surgery -broad spec abx on board and continues - patient is fluid overloaded after the resuscitation , on lasix bid for now -Continue to follow clinically. #. Septic encephalopathy, not present on admission, active and stable -wax-wane mentation , underlying dementia seems like -Seroquel 25mg nightly No further changes at this time. #. Transaminitis, present on admission and active Patient has had high normal Alk Phosm 915, prior to discharge 04/17/2017 alkaline phosphatase 1181. AST mildly elevated -Ultrasound of the abdomen 04/07/2017 (last admission) shows a prominent gallbladder (4.2 mm), HIDA scan & MRCP 04/05 clear -HIDA scan obtained on 04/05 shows no evidence of acute cholecystitis. Results as above -IR recommends no additional imaging studies at this point -monitor with TPN initiation. - will continue to trend liver function tests and alk phosph #. Normocytic anemia, present on admission, stable. -Hemoglobin 9.2 on admit prior to fluid administration, and globin Route level approximately 7.5 average during last admission -Consider transfusion if patient remains less than 7.0 -Continue to monitor #. COPD, present on admission, stable -O2 support as needed -Duoneb prn , no changes. #. Coronary artery disease, chronic. Present on admission. stable. -History of prior [place] requiring two stents. -Hold home statin secondary to elevated LFTs -Hold home meds #. Renal cell carcinoma of right kidney, chronic. Presumed stable. -Pt is s/p nephrectomy in October 2016, previously treated with Pazopanib and dexamethasone. -Per recommendations of oncology from prior admission Pazopanib and dexamethasone may be held for 4-6 weeks while patient stabilizes. -CT abd/pelvis renal cyst as above -Hold home meds -Follow up with Oncology as outpatient in 1-2 weeks to deterimine when to resume Pazopanib and dexamethasone. #. Elevated troponins. Unknown significance. Continue to monitor -EKG showed sinus tachycardia with an old inferior infarct -Initial troponin elevated 0.045 trended down -stressed induced #. Respiratory alkalosis with metabolic acidosis. Present on admission. resolved. -2nd to sepsis, lactic acid #. Essential Hypertension, chronic. Present on admission and not active. -Currently hypotensive, requiring blood pressure support -Hold home meds #. Diabetes mellitus, type 2, Present on admission. Presumed stable. -A1c 5.6 -blood glucose low 100' Disposition: Patient will likely go back to [facility] once he becomes medically stable and improved. I believe he will be in the hospital at least through May 05 GI Prophylaxis: H2 saw VTE Prophylaxis: Sub-Q Heparin (Unfractionated) VTE Mechanical Devices: Intermittant Pneumatic CD Resuscitation Status: CPR: Attempt Resuscitation Time spent 35 mins Loyd Sage MD May 03, 2017 08:05
[2017-05-03] MEDS: TPN Per Pharmacist XX SCH (08:30)
[2017-05-03] MEDS: Albuterol-Ipratropium 3 mL Inhalation Solution NEB SCH ×3 (08:39→20:30)
--- NOTE | 2017-05-03 09:54 | PROG NOTE ---
[address] [address] PROGRESS NOTE PATIENT: JOSAFAT SOLIS : 1945 MR#: [id number] ADMIT: 04/21/2017 JOB ID: [id number] DATE: 05/03/2017 REASON FOR FOLLOWUP: Complex right-sided abdominal infection. INTERVAL HISTORY: Overnight, the patient has done relatively well. He denies fevers, chills, shortness of breath or increasing abdominal pain. He was able to have breakfast. PHYSICAL EXAMINATION: Reveals an afebrile gentleman, temperature 36.6, pulse 89, respiratory rate 18, blood pressure 98/62. He is saturating well on room air. He is in no acute distress. He is alert. He is initially sleeping when I entered the room, but was easily aroused and able to answer questions. Oral cavity notable for dry mucous membranes. Lungs relatively clear. Abdomen soft and essentially nontender at this point. Yesterday, I was able to examine the infraumbilical wound. This is a fairly deep, but granulating wound without evidence of purulence or infection. LABORATORIES: Include white count 02981, normal differential. Creatinine 0.72. Procalcitonin is down to 0.5 and stable. No new cultures. IMPRESSION: No evidence of infection at this time. Clearly the patient did have a very significant infection with sepsis when he re-presented to the hospital some 13 days ago, but after a prolonged course of IV antibiotics. His right-sided abdominal pain is resolved, and he is now able to eat and drink without too much problem though he still requires TPN because of poor overall intake. His procalcitonin has normalized after extreme elevation, and I see no indication to continue antibiotics. RECOMMENDATIONS: 1. Will discontinue his remaining antibiotics which consist of micafungin and Zosyn at this point. 2. ID will go ahead and sign off at this time, but please do not hesitate to call if there is additional problems. Note that this case discussed in person with the hospitalist today.
[2017-05-03] MEDS: Furosemide 10 mg/mL 4 mL Inj IVPUSH SCH ×2 (10:08→16:21)
--- NOTE | 2017-05-03 10:56 | NUR ---
NUTRITION FOLLOW-UP: ASSESS: Pt is a 71 YO male admitted with severe sepsis. Pt was recently discharged from [facility] with abdominal abscess secondary to ruptured diverticula requiring sigmoid colectomy and colostomy, now with intraabdominal infection. Wound Vac was removed 05/02 due to concern for fistula, surgery is following. No signs of fistula at this time. His diet was advanced to Soft 05/02. He continues to tolerate bites of food. TPN continues, currently providing ~55% kcal and 75% pro needs. Pt's AST and alk phos are trending up. Will continue to monitor trends. Pharmacy is aware. Pt has had an increase in colostomy output over the last day. PMHx: CAD, COPD, renal cell carcinoma of right kidney s/p nephrectomy in October 2016, type II diabetes, HTN, dyslipidemia, heartburn, hiatal hernia, GI bleed, sigmoid colectomy with descending colostomy 03/24/2017. DIET: Soft, PO Bites-25% TPN: 200 g dextrose, 80 g AA, 15 g lipids to provide 1150 kcal, 80 g protein, meeting 53% kcal and76% protein needs. LABS: Reviewed. Cl 95, regional ehs manager .72, Glu 131, Ca 8.1, AST 54, Alk phos 572, Alb 2.1 MEDICATIONS: Reviewed. Lasix, seroquel. GI symptoms / stool: 750ml output 05/03, abdomen firm and distended. Skin Integrity: no major issues. Wound care following for ostomy care ANTHROPOMETRICS: Current Wt: 93.7kg, BMI: 26.5 kg/m2, admit wt 80.5 kg IBW: 86.3 kg, UBW: 92 kg, 6.5% wt loss x1 month. ESTIMATED NEEDS (malnutrition, wounds): Calories: 9810-2932 kcal (25 - 30 kcal / kg BW) Protein: 105-130g protein (1.2-1.5 g / kg BW) Fluids: ~2165-2595ml/day (25-30ml/kg) NUTRITION DIAGNOSIS: 1) Inadequate oral intake related altered gi function/ileus as evidence by PO on full Liquids at 15-25% - PERSISTS 2) Severe pro/kcal malnutrition in the context of acute illness as evidence by altered gi function as evidence by PO intake of <50% of estimated energy requirements for >5days, 6.5% wt loss x1 month - PERSISTS. INTERVENTION: 1) Diet advanced to soft with nectar thick liquids. continue current diet and current supplements 2) Due to lab trends, will continue current TPN of 200g Dex, 80g AA and 15g lipids. 3) Goal TPN of: 260 g Dex, 105 g AA and 20 g lipids to provide 1505 kcal and 105 g pro (~70% kcal and 100% pro needs). Goal TPN meets 70% kcal needs due to pt on mechanical altered diet. 4) Will monitor PO intake and adjust goal rate accordingly. 5) Will continue to monitor pts Liver labs closely. If labs continue to trend up, recommend cycle lipids three days a week or possibly running TPN x12 hrs/day rather than 24 hrs. MONITOR/EVALUATE: PO intake, diet advance, TPN tolerance / advance, GI status, labs, weight, and nutrition status. Follow up per high nutrition risk guidelines.
--- NOTE | 2017-05-03 14:47 | NUR ---
Inpatient Wound Nurse Patient seen for dressing change. Wound unchanged from yesterday. Beefy red wound bed is granulating. Orders are now wet to dry dressing change BID and this has now been completed two times today. Wound was cleansed, blotted dry, then packed with Kerlix moistened with NS and covered with ABD. CWON RN will see patient daily.
--- NOTE | 2017-05-03 17:15 | NUR ---
Social Work: Continued Discharge Planning/Multidisciplinary Rounds D: EMR reviewed. Pt is on day 12 of hospitalization. Pt discussed in multidisciplinary rounds. The patient is not medically stable for discharge. Wound VAC has been removed, pt's diet is advancing in preparation for weaning off TPN. [facility] continues to able to accept pt when medically stable with Dr. Parmar to follow. Pt and updated and agreeable to plan. SW will continue to follow. PPW on chart. A: Pt who will require skilled rehab at discharge. P: Anticipate pt to discharge back to [facility] once medically stable; [employer] to continue to follow to assess for unmet needs. Zohra Riley, [employer]
--- NOTE | 2017-05-03 19:26 | NUR ---
Urine Output Pt with frequent incontinence d/t BID IVP Lasix. Frequent turning and changing of bedding d/t heavy output. At 1700, verbal order received for Dallas placement. Pt buttock reddened and with pitting edema from buttock to feet little wrinkles underneath pt making further potential issues. 16fr Dallas placed at 1700. Within 5 minutes, 400cc output. Pt cleaned up and repositioned. Care continues.
[2017-05-03] MEDS: Total Parenteral Nutrition 1 BAG IV SCH (21:53)
[2017-05-04] MEDS: Sodium Chloride LOK Flush 10 mL Syringe IVFLUSH SCH ×3 (00:30→16:30)
--- NOTE | 2017-05-04 05:27 | NUR ---
Patterson/Colostomy/TPN Patient's patterson intact, patent, and draining to gravity with about 1650ml of output. Need for patterson to be re-evaluated this morning. TPN running at 42 ml/hr. Tolerating Ensure drinks well. Patient reports some nausea, but declines anti-nausea meds at this time. Colostomy intact, minimal output. No pain at this time. Bed down, rails up, call light in reach. Care continues.
[2017-05-04] MEDS: 0.9% Sodium Chloride 250 ML IV SCH ×2 (06:06→18:00)
[2017-05-04 06:16] VITALS: PULSE 100
--- NOTE | 2017-05-04 07:38 | PROG NOTE ---
[address] [address] PROGRESS NOTE PATIENT: JOSAFAT SOLIS : 1945 MR#: [id number] ADMIT: 04/21/2017 JOB ID: [id number] DATE: 05/04/2017 SUBJECTIVE: The patient is seen in followup. He has no complaints. He has no abdominal pain. He is not complaining of nausea today. OBJECTIVE: Temperature 36.6, pulse 100, blood pressure 106/65, saturation 96% on room air. In general, he is resting in bed in no acute distress. Abdomen is distended, but less firm. Colostomy has loose green stool in the appliance. Midline wound packing was changed. There is no enteric looking material on the gauze. There is no erythema of the abdominal wall. Gauze packing was replaced with wet-to-dry dressing. ASSESSMENT AND PLAN: A 71-year-old man with perforated sigmoid diverticulitis and feculent peritonitis status post Diallo's procedure, readmitted with septic shock with ongoing encephalopathy of unclear cause. We are observing closely for a fistula to the midline wound based on the nature of his wound VAC output, but I see no evidence of enterocutaneous fistula at this point. Nonetheless, we will avoid wound VAC therapy for right now and continue with wet-to-dry dressings.
[2017-05-04 08:00] VITALS: PULSE 90
[2017-05-04] MEDS: Albuterol-Ipratropium 3 mL Inhalation Solution NEB SCH ×3 (08:30→20:30)
[2017-05-04] MEDS: TPN Per Pharmacist XX SCH (08:30)
--- NOTE | 2017-05-04 08:33 | PCM.PNMED ---
Subjective Date of Service May 04, 2017 Subjective Patient seen and examined. He said he knows where he is " "[facility]". When asked about relative, mentions his . Denies pain Exam Vital Signs Vital Sign - Last Date Time Temp Pulse Resp B/P Pulse Ox O2 Delivery O2 Flow Rate FiO2 05/04/17 06:16 100 05/03/17 23:48 36.6 19 106/65 96 Room Air Intake and Output 05/03/17 05/03/17 05/04/17 Cumulative From/Thru 15:00 23:00 07:00 04/21/17 10:44 - 05/04/17 06:08 Intake Total 914 ml 1074 ml 54123 ml Output Total 900 ml 1650 ml 84897 ml Balance 14 ml -576 ml 74643 ml Intake Oral 125 ml 518 ml 3743 ml IV Total 250 ml 556 ml 33017 ml TPN/PPN 539 ml 3534 ml Packed Cells 301 ml Output Urine Total 700 ml 1650 ml 94803 ml Stool Total 200 ml 1380 ml Emesis 15 ml Drainage Total 5 ml # Voids 18 # Bowel Movements 0 Exam Constitutional: Elderly male in no acute distress Head: Normocephalic atraumatic Chest: Decreased breath sounds at his bases, diffuse wheezing Cor: Regular rate and rhythm S1-S2 Abdomen: Soft mild diffuse tenderness, no rebound no guarding, ostomy is in place and minimal output, active bowel sounds Extremities: 2 + bilateral pedal edema (improving) Neuro: Alert and oriented 3, motor strength is intact bilaterally Lab and Diagnostics Result Diagram: 05/03/17 0500 05/03/17 0500 Microbiology Blood cultures pending X-Rays, CTs and MRIs . X-RAY CHEST ONE VIEW, PORTABLE IMPRESSION: No acute cardiopulmonary disease. Dictated by: Darius Molina M.D. on 04/21/2017 X-RAY PICC LINE PLACEMENT BY NURSE IMPRESSION: Tip of PICC lies within the lower superior vena cava. Dictated by: Darius Molina M.D. on 04/21/2017 CT ANGIO CHEST PULMONARY EMBOLISM IMPRESSION: 1. No large pulmonary emboli. Respiratory motion artifact limits evaluation for small emboli. 2. Mild bronchial wall thickening within the bilateral infrahilar regions ( left greater than right) may represent bronchitis. 3. New/Increasing right middle lobe ground glass nodules. A three-month followup CT of the chest is recommended with contrast. 4. No lymphadenopathy within the chest. 5. 1.3 cm hypodense left thyroid nodule. Please consider a thyroid ultrasound for further evaluation Dictated by: Tarik Roe M.D. on 04/21/2017 CT ABDOMEN AND PELVIS WITH CONTRAST IMPRESSION: 1. Interval postoperative changes of the bowel with a left lower quadrant colostomy. No bowel obstruction. 2. Mild ascites and moderate mesenteric edema probably is related to interval surgery. No drainable fluid collection or definable abscess is evident. 3. Mild prominence of the vieyra of multiple loops of bowel is nonspecific. However, this appearance may be related to colitis or enteritis and clinical correlation is recommended. 4. Fluid within the rectal stump probably is within normal limits. Other: -Absent right kidney and adrenal gland. -Cholelithiasis. -Hepatic steatosis. -Pancreatic lesion is not well evaluated on this exam. -Unusual appearance of an L1 compression fracture may be related to chronic sclerosis. However, a pathologic compression fracture related to metastatic lesion is difficult to exclude. Dictated by: Tarik Roe M.D. on 04/21/2017 Additional Diagnostics DateTimeAnalyzed 14:02:00 -_ pH ____7.474 - 7.350 7.450 pCO2 ___27.7__ -mmHg 35.0 45.0 pO2 107 -mmHg 69.0 116 HCO3- ___20.1__ -mmol/L 22.0 26.0 ABE ___-2.7__ -mmol/L -2.0 2.0 tHb ____7.0__ -g/dL 12.0 18.0 O2Hb ___96.2__ -% COHb ____1.6__ -% 0.0 1.5 MetHb ____0.5__ -% 0.4 1.5 sO2 ___98.3__ -% 25.0 FIO2 ___32.0__ -% Drawn By as - Date/Time Notified____ 14:08:00 -_ Spontaneous_RR ___26.0__ -b/min Liter_Flow ____3.0__ -L/min Oxygen Device 1 __CANNULA - Notified By AMS - Notified Whom DR OKELLY - B 756 -mmHg tO2 ____9.7__ -Vol% Lion test _Positive - Assessment & Plan Patient is a 71-year-old male with a recent history of partial colectomy secondary to intra-abdominal abscess, diverticular disease readmission for septic shock, currently improving on antibiotics. #. Acute intraabdominal inflammation and infection, present on admission and slowly improving. -recent ruptured diverticular s/p sigmoid colectomy and colostomy (03/24-04/19) -Wound VAC taken out due to concerns for fistula, assessed by surgery : no fistula , continue dressing as directed -Cultures, viral PCR have been negative thus far. -Infectious Disease Dr. Lozoya consulted -Dc'd Abx as per ID -Procalcitonin trended down -Surgery on board, continue TPN with possibility of transition to oral #. Postoperative ileus, new and active. -Continue supportive TPN and follow clinically. He is taking small amounts of full liquid diet. #. Severe protein malnutrition, present on admission, active -2nd to recent major surgery, poor po intake -prealbumin 3, albumin 1.7, improving with TPN -We will continue patient on full liquid nectar thick diet -Total parenteral nutrition started 04/28/2017 normal will continue for now. -Monitor stool output #. Abdominal pain, present on admission, resolved -Likely surgical wound, intra-abdominal infection, possible ileus, possible small bowel obstruction -Dilated small bowel with air-fluid level on CT abdomen and pelvis -Positive bowel sounds, passing gas and small amount of stool. -Conservative management -Clear liquid diet No other changes. #. Paroxysmal Sinus tachycardia, present on admission and resolved. -Etiology unknown, possible sepsis -Cardizem 30 mg 3 times a day, will continue -EKG with runs of tachycardia This seems to be resolved on his diltiazem 30 mg 3 times a day. No changes. #. Septic shock, present on admission and resolved. -lactic acid 7.8, tachypneic, tachycardic, leukocytosis with presumed source of abdominal infection, and AMS requiring brief pressor support. -Possible gallbladder disease given enlargement with stones with elevated LFT , HIDA positive for reduce ejection fraction system with chronic cholecystitis. -No intervention per IR/surgery -broad spec abx on board and continues - patient is fluid overloaded after the resuscitation , on lasix bid for now -Continue to follow clinically. #. Septic encephalopathy, not present on admission, active and stable -wax-wane mentation , underlying dementia seems like -Seroquel 25mg nightly - will get ammonia level today #. Transaminitis, present on admission and active Patient has had high normal Alk Phosm 915, prior to discharge 04/17/2017 alkaline phosphatase 1181. AST mildly elevated -Ultrasound of the abdomen 04/07/2017 (last admission) shows a prominent gallbladder (4.2 mm), HIDA scan & MRCP 04/05 clear -HIDA scan obtained on 04/05 shows no evidence of acute cholecystitis. Results as above -IR recommends no additional imaging studies at this point -monitor with TPN initiation. - will continue to trend liver function tests and alk phosph #. Normocytic anemia, present on admission, stable. -Hemoglobin 9.2 on admit prior to fluid administration, and globin Route level approximately 7.5 average during last admission -Consider transfusion if patient remains less than 7.0 -Continue to monitor #. COPD, present on admission, stable -O2 support as needed -Duoneb prn , no changes. #. Coronary artery disease, chronic. Present on admission. stable. -History of prior LA requiring two stents. -Hold home statin secondary to elevated LFTs -Hold home meds #. Renal cell carcinoma of right kidney, chronic. Presumed stable. -Pt is s/p nephrectomy in October 2016, previously treated with Pazopanib and dexamethasone. -Per recommendations of oncology from prior admission Pazopanib and dexamethasone may be held for 4-6 weeks while patient stabilizes. -CT abd/pelvis renal cyst as above -Hold home meds -Follow up with Oncology as outpatient in 1-2 weeks to deterimine when to resume Pazopanib and dexamethasone. #. Elevated troponins. Unknown significance. Continue to monitor -EKG showed sinus tachycardia with an old inferior infarct -Initial troponin elevated 0.045 trended down -stressed induced #. Respiratory alkalosis with metabolic acidosis. Present on admission. resolved. -2nd to sepsis, lactic acid #. Essential Hypertension, chronic. Present on admission and not active. -Currently hypotensive, requiring blood pressure support -Hold home meds #. Diabetes mellitus, type 2, Present on admission. Presumed stable. -A1c 5.6 -blood glucose low 100' Disposition: Patient will likely go back to [facility] once he becomes medically stable and improved. His progonosis is guarded at this point. GI Prophylaxis: H2 saw VTE Prophylaxis: Sub-Q Heparin (Unfractionated) VTE Mechanical Devices: Intermittant Pneumatic CD Resuscitation Status: CPR: Attempt Resuscitation Loyd Sage MD May 04, 2017 08:33
[2017-05-04 09:44] LABS: BASOPHILS % (AUTO) 0.3 % (0-3); EOSINOPHILS % (AUTO) 1.6 % (0-5); MONOCYTES % (AUTO) 6.5 % (4-12); Mean Corpuscular Hemoglobin 27.8 pg (27.0-35.0); Mean Corpuscular Volume 92.9 fL (81-100); NEUTROPHILS % (AUTO) 84.1 % (40-74); Platelet Count 475 bil/L (150-400)
[2017-05-04] MEDS: Furosemide 10 mg/mL 2 mL Inj IVPUSH SCH ×2 (09:59→20:13)
--- NOTE | 2017-05-04 11:13 | NUR ---
NUTRITION FOLLOW-UP: ASSESS: Pt is a 71 YO male admitted with severe sepsis. Pt was recently discharged from [facility] with abdominal abscess secondary to ruptured diverticula requiring sigmoid colectomy and colostomy, now with intraabdominal infection. Wound Vac was removed 05/02 due to concern for fistula, surgery is following. No signs of fistula at this time. His diet was advanced to Soft 05/02. He continues to tolerate only bites of food. TPN continues. As Alk Phos and AST are elevated and there is concern that TPN may be suppressing pts appetite, will run TPN x12 hrs rather than 24 hrs. Pharmacy is aware. PMHx: CAD, COPD, renal cell carcinoma of right kidney s/p nephrectomy in October 2016, type II diabetes, HTN, dyslipidemia, heartburn, hiatal hernia, GI bleed, sigmoid colectomy with descending colostomy 03/24/2017. DIET: Soft, PO Bites TPN: 200 g dextrose, 80 g AA, 15 g lipids to provide 1150 kcal, 80 g protein, meeting 53% kcal and76% protein needs. LABS: Reviewed. Manager Combination .63, Glu 128, Ca 8.1, Alk phos 552, Alb 2.1 MEDICATIONS: Reviewed. Lasix, seroquel. GI symptoms / stool: 950ml output 05/03 Skin Integrity: no major issues. Wound care following for ostomy care ANTHROPOMETRICS: Current Wt: 94.1kg, BMI: 26.6 kg/m2, admit wt 80.5 kg IBW: 86.3 kg, UBW: 92 kg, 6.5% wt loss x1 month. ESTIMATED NEEDS (malnutrition, wounds): Calories: 6104-6921 kcal (25 - 30 kcal / kg BW) Protein: 105-130g protein (1.2-1.5 g / kg BW) Fluids: ~2165-2595ml/day (25-30ml/kg) NUTRITION DIAGNOSIS: 1) Inadequate oral intake related altered gi function/ileus as evidence by PO on full Liquids at 15-25% - PERSISTS 2) Severe pro/kcal malnutrition in the context of acute illness as evidence by altered gi function as evidence by PO intake of <50% of estimated energy requirements for >5days, 6.5% wt loss x1 month - PERSISTS. INTERVENTION: 1) Diet advanced to soft with nectar thick liquids. Continue current diet and current supplements 2) Due to elevated liver labs and concern that TPN is suppressing pt's appetite, will start running TPN x12 hrs. Recommend advance TPN to 260g Dex, 105g AA and 20g lipids to provide 1504 kcal and 105g pro to provide ~65% kcal and 100% pro needs. Pharmacy is aware of change to 12hrs/day rather than 24hrs and increase in macronutrients. Plan is to decrease rate down to 18hrs tomorrow and then down to 12hrs the next day to monitor tolerance. TPN running x12 hrs provides 3.8mg/kg/min (dex), 1.115g/kg/day (AA) and .21g/kg/day (lipids). 3) Will continue to monitor lab trends closely. MONITOR/EVALUATE: PO intake, TPN tolerance / advance/rate change, GI status, labs, weight, and nutrition status. Follow up per high nutrition risk guidelines.
--- NOTE | 2017-05-04 14:10 | PCM.PHAPRO ---
Progress TPN TPN DAY 7 Advancing formulation per dietitian to current order. To help stimulate appetite , changing to cyclic TPN to run over 16 hours today (2 hours 1/2 rate and 14 hours full rate). Tomorrow will run cyclic TPN over 12 hours if he tolerates this well. Order: PARENTERAL NUTRITION ORDERS 7 04-May-17 Standard Hang Time: 2100 Substrates Total kcal: 1504 AMINO ACIDS 105 g DEXTROSE 260 g Total Volume (mL): 1000 LIPIDS 20 g Sterile Water for Injection mL To Infuse Over (hrs): 14 Total Volume 1000 mL At at a rate of (mL/hr): 71 Additives Sodium Chloride 80 mEq "typical" daily requirements Sodium Acetate 10 mEq Sodium 50-120mEq Potassium Chloride 30 mEq Potassium 60-120mEq Potassium Phosphate 10 mEq Phosphate 20-40mEq Calcium Gluconate 9.3 mEq Magnesium 8-32mEq Magnesium Sulfate 16 mEq Calcium 9-22mEq Acetate* 80-120mEq Chloride* 80-120mEq Regular Insulin units *Depending on acid-base status Famotidine 40 mg Multivitamins 1 std dose Insulin Regimen Trace Elements 1 std dose none Thiamine mg Regular Low Intensity Subcut Folic Acid mg Regular Medium Intensity Subcut Ascorbic Acid mg Regular High Intensity Subcut Regular Insulin Infusion Other: Special Instructions: To be infused via central line only. For delay or inturruption of TPN contact the pharmacist for alternative replacement solution. Cyclic rate: start at 41.98ml/hr x 1 hour, then increase to 83.96ml/hr x 14 hours then decrease to 41.98ml/hr x 1 hour, then stop. Signature Date: Humberto Saldivar 1012 Gabriella Tan Pharm.D May 04, 2017 14:10
[2017-05-04 15:43] VITALS: BP 113/73; PULSE 107; RESP 20; O2SAT 94
--- NOTE | 2017-05-04 19:10 | NUR ---
Appetite / Mentation Attempted to offer Ensures multiple time often. Pt refuses to drink or eat anything. Offered real food and refuses that as well. If staff hands pt an ensure and tells him please drink this for me he will drink about half of it. Very drowsy all day and refusing to try and eat or drink anything. Obeys commands. Care continues
[2017-05-04] MEDS: Total Parenteral Nutrition 1 BAG IV SCH (20:15)
[2017-05-04 21:21] VITALS: BP 101/71; PULSE 108; RESP 20; O2SAT 95
[2017-05-05] MEDS: Sodium Chloride LOK Flush 10 mL Syringe IVFLUSH SCH ×4 (00:23→20:40)
--- NOTE | 2017-05-05 02:35 | NUR ---
Transfer of Care This RN resumed care of this pt. at this time. Report received from Anushka Turcios RN.
[2017-05-05 04:26] VITALS: BP 118/74; PULSE 106; RESP 24; O2SAT 94
--- NOTE | 2017-05-05 04:30 | NUR ---
Activity Pt. has been sleeping well so far. TPN infusing. Will continue to monitor.
[2017-05-05 06:19] LABS: BASOPHILS % (AUTO) 0.3 % (0-3); MONOCYTES % (AUTO) 7.1 % (4-12); Mean Corpuscular Hemoglobin 28.2 pg (27.0-35.0); Mean Corpuscular Volume 94.9 fL (81-100); NEUTROPHILS % (AUTO) 83.3 % (40-74); Platelet Count 493 bil/L (150-400)
[2017-05-05] MEDS: Albuterol-Ipratropium 3 mL Inhalation Solution NEB SCH ×3 (08:30→20:30)
--- NOTE | 2017-05-05 08:32 | PCM.PNSURG ---
Subjective Date of Service: May 05, 2017 Visit Information: Reason for Visit Septic Shock,Nstemi Surgery/Surgery Date Post-Op Day # Date of Admission: Apr 21, 2017 at 13:59 Hospital Day #14 Subjective: Eating and drinking very few amounts of ensure and juices, no solid foods that have been reported. Pain Management: PO Objective Vital Sign- Last 8 Hours Date Time Temp Pulse Resp B/P Pulse Ox O2 Delivery O2 Flow Rate FiO2 05/05/17 04:26 36.7 106 24 118/74 94 Room Air Intake and Output- Last 8 Hour 05/05/17 Cumulative From/Thru 07:00 04/21/17 10:44 - 05/05/17 06:09 Intake Total 1699 ml 01742 ml Output Total 1025 ml 27274 ml Balance 674 ml 69736 ml Intake Oral 200 ml 4279 ml IV Total 1499 ml 07291 ml TPN/PPN 3534 ml Packed Cells 301 ml Output Urine Total 975 ml 95850 ml Stool Total 50 ml 1430 ml Emesis 15 ml Drainage Total 5 ml # Voids 18 # Bowel Movements 0 0 General: Alert, Cooperative, Other (incoherent garbled speech) Lungs: Clear to Auscultation (in the anterolateral werner) Heart: Regular Rate/Rhythm Abdomen: Soft, Non-tender, Distended, Ostomy pink & viable (with liquid green stool in the bag) SURGICAL WOUND : Wound Location/Description Lower abdominal midline wound is examined: Wound depth is approximately 6 cm in 2 separate spaces with granulation tissue, no exudates, fibrins, or eschars. Wound packing is clean with no enteric staining. Fascia is intact. Catheters: Urethral [address] [place] Result Diagram: 05/05/1738 05/05/17 0538 Lab & Micro Results: Serum albumin continues to decrease, 1.9 today. Assessment & Plan Impression Primary diagnoses: 1. Sigmoid diverticulitis with feculent peritonitis, status post Breen's procedure 03/24/2017. 2. Hospital readmission for septic shock, resolved. 3. Resultant encephalopathy of unknown etiology, ongoing. 4. Open lower midline abdominal wound with recent suspicion for enterocutaneous fistula, no current evidence of an enterocutaneous fistula. Dressing changes ongoing. Wound VAC discontinued several days ago. Other chronic conditions: 1. Coronary artery disease 2. Myocardial infarction (2 stents placed 2011) 3. COPD 4. Renal cell carcinoma of right kidney (s/p nephrectomy in October 2016) 5. Diabetes mellitus, type 2 6. Hypertension 7. Hyperlipidemia 8. Heartburn 9. Hiatal hernia 10. History of GI bleeding 11. Former cigarette smoker Problems: Plan 1. Continue wet-to-dry dressing changes and wound observation. No wound VAC for now. 2. Encourage aggressive nutritional support. Pain Management: Oral analgesic VTE Prophylaxis: Sub-Q Enoxaparin Resuscitation Status: CPR: Attempt Resuscitation Almas Castro PA-C May 05, 2017 08:31
[2017-05-05 08:37] VITALS: BP 106/67; PULSE 107; RESP 28
[2017-05-05] MEDS: Furosemide 10 mg/mL 2 mL Inj IVPUSH SCH ×2 (08:37→20:29)
[2017-05-05] MEDS: TPN Per Pharmacist XX SCH (08:37)
--- NOTE | 2017-05-05 11:27 | NUR ---
Inpatient Wound and Ostomy Nurse Patient seen for abdominal wound care and ostomy system change. Abdominal wound beefy red and granulating. Measurements today are 5 cm L x 3 cm W. Distal tunnel is 6 cm D. Proximal tunnel is 4 cm D. Wound was cleansed, blotted dry, then packed with sterile gauze saturated with NS and covered with bordered 4x4 Mepilex dressing. Stoma is pink and continues retracted on medial plane. Two pressure ulcers are noted in peristomal skin, one at 1 o clock and one at 7 o clock. These are <0.5 cm L and <0.5 cm W and 0.1 cm D, glossy pink wound beds, scant drainage noted in removed wafer which is hydrocolloid. Both of these were cleansed and blotted dry and covered with stoma paste prior to application of Coloplast flat hydrocolloid wafer. Although patient's retracted stoma is benefitted from a convex wafer, his peristomal skin is not. CWON RN switched to flat today, will reassess on Monday. Coloplast hydrocolloid wafer material is advised but will resume Convatec if peristomal skin is not improved. Dark green liquid stool noted in pouch. CWON RN will see patient Monday for wound care and continue Monday-Monday ostomy system changes. CWON RN will provide the Monday through Monday a.m. dressing change for BID dressing changes to abdominal incision.
--- NOTE | 2017-05-05 11:29 | PCM.PHAPRO ---
Progress TPN TPN DAY#8 Pt. oral intake yesterday was 1/2 can ensure, tolerated cyclic TPN well, BG 134 this AM, alk phos. continues to trend down, 521 today. Pt. has continuing need for TPN, current formula with total volume 1259mL provides 70% of calorie needs. AA decreased to 95G today to accommodate oral intake. Cyclic schedule started 05/04 to help stimulate appetite by having time off of TPN. Cyclic schedule again, shortened to 14 hours today, start at 48ml/hr x 1 hr, increase to 97ml/hr x 12 hr, then 48ml/hr x 1 hr, then off. PARENTERAL NUTRITION ORDERS 8 05-May-17 Standard Hang Time: 2100 Substrates Total kcal: 1464 AMINO ACIDS 95 g DEXTROSE 260 g Total Volume (mL): 1259 LIPIDS 20 g Sterile Water for Injection mL To Infuse Over (hrs): 14 Total Volume 1259.41 mL At at a rate of (mL/hr): 90 Additives Sodium Chloride 80 mEq "typical" daily requirements Sodium Acetate 10 mEq Sodium 50-120mEq Potassium Chloride 30 mEq Potassium 60-120mEq Potassium Phosphate 10 mEq Phosphate 20-40mEq Calcium Gluconate 9.3 mEq Magnesium 8-32mEq Magnesium Sulfate 16 mEq Calcium 9-22mEq Acetate* 80-120mEq Chloride* 80-120mEq Regular Insulin units *Depending on acid-base status Famotidine 40 mg Multivitamins 1 std dose Insulin Regimen Trace Elements 1 std dose none Thiamine mg Regular Low Intensity Subcut Folic Acid mg Regular Medium Intensity Subcut Ascorbic Acid mg Regular High Intensity Subcut Regular Insulin Infusion Other: Special Instructions: To be infused via central line only. For delay or inturruption of TPN contact the pharmacist for alternative replacement solution. Cyclic rate: Signature Date: Humberto Saldivar 1012 Gabriella Tan.D May 05, 2017 11:08
--- NOTE | 2017-05-05 11:44 | NUR ---
NUTRITION FOLLOW-UP: ASSESS: Pt is a 71 YO male admitted with severe sepsis. Pt was recently discharged from [facility] with abdominal abscess secondary to ruptured diverticula requiring sigmoid colectomy and colostomy, now with intraabdominal infection. Wound Vac was removed 05/02 due to concern for fistula, surgery is following. No signs of fistula at this time. His diet was advanced to Soft 05/02. He continues to tolerate only bites of food. TPN is being run x12 hrs as pt's alk phos continues to be elevates, although tending down, and to help stimulate pt's appetite. Family has been trying to bring in food that pt likes but he still is only eating bites and mainly just drinking Ensure. ST eval has been ordered. Attempted to speak with pt about his appetite and foods that he likes. Pt had trouble speaking and his speech was very mumbled/gargled. PMHx: CAD, COPD, renal cell carcinoma of right kidney s/p nephrectomy in October 2016, type II diabetes, HTN, dyslipidemia, heartburn, hiatal hernia, GI bleed, sigmoid colectomy with descending colostomy 03/24/2017. DIET: Soft, PO Bites TPN: 260 g dextrose, 105 g AA, 20 g lipids to provide 1504 kcal, 105 g protein, meeting 65% kcal [id number]% protein needs. LABS: Reviewed. Bun 30, disability manager .56, Ca 8.2, alk phos 521, alb 1.9 MEDICATIONS: Reviewed. Lasix, Seroquel. GI symptoms / stool: 50ml output 05/05 Skin Integrity: no major issues. Wound care following for ostomy care ANTHROPOMETRICS: Current Wt: 87.7kg, BMI: 24.8 kg/m2, admit wt 80.5 kg IBW: 86.3 kg, UBW: 92 kg, 6.5% wt loss x1 month. ESTIMATED NEEDS (malnutrition, wounds): Calories: 3439-7793 kcal (25 - 30 kcal / kg BW) Protein: 105-130g protein (1.2-1.5 g / kg BW) Fluids: ~2165-2595ml/day (25-30ml/kg) NUTRITION DIAGNOSIS: 1) Inadequate oral intake related altered gi function/ileus as evidence by PO on full Liquids at 15-25% - PERSISTS 2) Severe pro/kcal malnutrition in the context of acute illness as evidence by altered gi function as evidence by PO intake of <50% of estimated energy requirements for >5days, 6.5% wt loss x1 month - PERSISTS. INTERVENTION: 1) Diet per ST. Pt reported that he doesn't mind eggs and encouraged pt to try to eat a least 25% of each meal. 2) Will continue to run TPN x12 hrs. Will decrease AA to 95g and continue lipids of 20g and Dex at 260g. Pharmacy is aware of change to 12hrs/day rather than 24hrs and slight change in AA. TPN running x12 hrs provides 4.1mg/kg/min (dex), 1.08g/kg/day (AA) and .21g/kg/day (lipids). 3) Will continue to monitor lab trends closely. 4) Recommend considering an appetite stimulant to help increase pt's PO intake. MONITOR/EVALUATE: PO intake, TPN tolerance / advance/rate change, GI status, labs, weight, and nutrition status. Follow up per high nutrition risk guidelines.
--- NOTE | 2017-05-05 12:16 | PCM.PNMED ---
Subjective Date of Service May 05, 2017 Subjective Patient seen and examined. Alert, but oriented X 2. Vitals noted. Exam Vital Signs Vital Sign - Last Date Time Temp Pulse Resp B/P Pulse Ox O2 Delivery O2 Flow Rate FiO2 05/05/17 08:37 107 28 106/67 05/05/17 04:26 36.7 94 Room Air Intake and Output 05/04/17 05/04/17 05/05/17 Cumulative From/Thru 15:00 23:00 07:00 04/21/17 10:44 - 05/05/17 06:09 Intake Total 336 ml 1699 ml 35610 ml Output Total 700 ml 1025 ml 22608 ml Balance -364 ml 674 ml 61812 ml Intake Oral 336 ml 200 ml 4279 ml IV Total 1499 ml 83046 ml TPN/PPN 3534 ml Packed Cells 301 ml Output Urine Total 700 ml 975 ml 18158 ml Stool Total 50 ml 1430 ml Emesis 15 ml Drainage Total 5 ml # Voids 18 # Bowel Movements 0 0 Exam Constitutional: Elderly male in no acute distress Head: Normocephalic atraumatic Chest: Decreased breath sounds at his bases, diffuse wheezing Cor: Regular rate and rhythm S1-S2 Abdomen: Soft mild diffuse tenderness, no rebound no guarding, ostomy is in place and minimal output, active bowel sounds Extremities: 2 + bilateral pedal edema (improving) Neuro: Alert and oriented 3, motor strength is intact bilaterally Lab and Diagnostics Result Diagram: 05/05/1738 05/05/17537 Microbiology Blood cultures pending X-Rays, CTs and MRIs . X-RAY CHEST ONE VIEW, PORTABLE IMPRESSION: No acute cardiopulmonary disease. Dictated by: Darius Molina M.D. on 04/21/2017 X-RAY PICC LINE PLACEMENT BY NURSE IMPRESSION: Tip of PICC lies within the lower superior vena cava. Dictated by: Darius Molina M.D. on 04/21/2017 CT ANGIO CHEST PULMONARY EMBOLISM IMPRESSION: 1. No large pulmonary emboli. Respiratory motion artifact limits evaluation for small emboli. 2. Mild bronchial wall thickening within the bilateral infrahilar regions ( left greater than right) may represent bronchitis. 3. New/Increasing right middle lobe ground glass nodules. A three-month followup CT of the chest is recommended with contrast. 4. No lymphadenopathy within the chest. 5. 1.3 cm hypodense left thyroid nodule. Please consider a thyroid ultrasound for further evaluation Dictated by: Tarik Roe M.D. on 04/21/2017 CT ABDOMEN AND PELVIS WITH CONTRAST IMPRESSION: 1. Interval postoperative changes of the bowel with a left lower quadrant colostomy. No bowel obstruction. 2. Mild ascites and moderate mesenteric edema probably is related to interval surgery. No drainable fluid collection or definable abscess is evident. 3. Mild prominence of the vieyra of multiple loops of bowel is nonspecific. However, this appearance may be related to colitis or enteritis and clinical correlation is recommended. 4. Fluid within the rectal stump probably is within normal limits. Other: -Absent right kidney and adrenal gland. -Cholelithiasis. -Hepatic steatosis. -Pancreatic lesion is not well evaluated on this exam. -Unusual appearance of an L1 compression fracture may be related to chronic sclerosis. However, a pathologic compression fracture related to metastatic lesion is difficult to exclude. Dictated by: Tarik Roe M.D. on 04/21/2017 Additional Diagnostics DateTimeAnalyzed 14:02:00 -_ pH ____7.474 - 7.350 7.450 pCO2 ___27.7__ -mmHg 35.0 45.0 pO2 107 -mmHg 69.0 116 HCO3- ___20.1__ -mmol/L 22.0 26.0 ABE ___-2.7__ -mmol/L -2.0 2.0 tHb ____7.0__ -g/dL 12.0 18.0 O2Hb ___96.2__ -% COHb ____1.6__ -% 0.0 1.5 MetHb ____0.5__ -% 0.4 1.5 sO2 ___98.3__ -% 25.0 FIO2 ___32.0__ -% Drawn By as - Date/Time Notified____ 14:08:00 -_ Spontaneous_RR ___26.0__ -b/min Liter_Flow ____3.0__ -L/min Oxygen Device 1 __CANNULA - Notified By AMS - Notified Whom DR OKELLY - B 756 -mmHg tO2 ____9.7__ -Vol% Lion test _Positive - Assessment & Plan Patient is a 71-year-old male with a recent history of partial colectomy secondary to intra-abdominal abscess, diverticular disease readmission for septic shock, currently improving on antibiotics. #. Acute intraabdominal inflammation and infection, present on admission and slowly improving. -recent ruptured diverticular s/p sigmoid colectomy and colostomy (03/24-04/19) -Wound VAC taken out due to concerns for fistula, assessed by surgery : no fistula , continue dressing as directed -Cultures, viral PCR have been negative thus far. -Infectious Disease Dr. Lozoya consulted -Dc'd Abx as per ID -Procalcitonin trended down -Surgery on board, continue TPN with possibility of transition to oral , continue dressings #. Postoperative ileus, new and active. -Continue supportive TPN and follow clinically. He is taking small amounts of full liquid diet. #. Severe protein malnutrition, present on admission, active -2nd to recent major surgery, poor po intake -prealbumin 3, albumin 1.7, improving with TPN -We will continue patient on full liquid nectar thick diet -Total parenteral nutrition started 04/28/2017 normal will continue for now. -Monitor stool output #. Abdominal pain, present on admission, resolved -Likely surgical wound, intra-abdominal infection, possible ileus, possible small bowel obstruction -Dilated small bowel with air-fluid level on CT abdomen and pelvis -Positive bowel sounds, passing gas and small amount of stool. -Conservative management -Clear liquid diet No other changes. #. Paroxysmal Sinus tachycardia, present on admission and resolved. -Etiology unknown, possible sepsis -Cardizem 30 mg 3 times a day, will continue -EKG with runs of tachycardia This seems to be resolved on his diltiazem 30 mg 3 times a day. No changes. #. Septic shock, present on admission and resolved. -lactic acid 7.8, tachypneic, tachycardic, leukocytosis with presumed source of abdominal infection, and AMS requiring brief pressor support. -Possible gallbladder disease given enlargement with stones with elevated LFT , HIDA positive for reduce ejection fraction system with chronic cholecystitis. -No intervention per IR/surgery -broad spec abx on board and continues - patient is fluid overloaded after the resuscitation , on lasix bid for now -Continue to follow clinically. #. Septic encephalopathy, not present on admission, active and stable -wax-wane mentation , underlying dementia seems like -Seroquel 25mg nightly - will get ammonia level today #. Transaminitis, present on admission and active Patient has had high normal Alk Phosm 915, prior to discharge 04/17/2017 alkaline phosphatase 1181. AST mildly elevated -Ultrasound of the abdomen 04/07/2017 (last admission) shows a prominent gallbladder (4.2 mm), HIDA scan & MRCP 04/05 clear -HIDA scan obtained on 04/05 shows no evidence of acute cholecystitis. Results as above -IR recommends no additional imaging studies at this point -monitor with TPN initiation. - will continue to trend liver function tests and alk phosph #. Normocytic anemia, present on admission, stable. -Hemoglobin 9.2 on admit prior to fluid administration, and globin Route level approximately 7.5 average during last admission -Consider transfusion if patient remains less than 7.0 -Continue to monitor #. COPD, present on admission, stable -O2 support as needed -Duoneb prn , no changes. #. Coronary artery disease, chronic. Present on admission. stable. -History of prior [place] requiring two stents. -Hold home statin secondary to elevated LFTs -Hold home meds #. Renal cell carcinoma of right kidney, chronic. Presumed stable. -Pt is s/p nephrectomy in October 2016, previously treated with Pazopanib and dexamethasone. -Per recommendations of oncology from prior admission Pazopanib and dexamethasone may be held for 4-6 weeks while patient stabilizes. -CT abd/pelvis renal cyst as above -Hold home meds -Follow up with Oncology as outpatient in 1-2 weeks to deterimine when to resume Pazopanib and dexamethasone. #. Elevated troponins. Unknown significance. Continue to monitor -EKG showed sinus tachycardia with an old inferior infarct -Initial troponin elevated 0.045 trended down -stressed induced #. Respiratory alkalosis with metabolic acidosis. Present on admission. resolved. -2nd to sepsis, lactic acid #. Essential Hypertension, chronic. Present on admission and not active. -Currently hypotensive, requiring blood pressure support -Hold home meds #. Diabetes mellitus, type 2, Present on admission. Presumed stable. -A1c 5.6 -blood glucose low 100' Disposition: Patient will likely go back to [facility] once he becomes medically stable and improved. His progonosis is guarded at this point. GI Prophylaxis: H2 saw VTE Prophylaxis: Sub-Q Enoxaparin VTE Mechanical Devices: Intermittant Pneumatic CD Resuscitation Status: CPR: Attempt Resuscitation Time spent 35 mins Loyd Sage MD May 05, 2017 12:16
[2017-05-05] MEDS: 0.9% Sodium Chloride 250 ML IV SCH (14:58)
[2017-05-05] MEDS ORDERED: Furosemide 10 mg/mL 2 mL Inj IVPUSH ONE (16:05)
--- NOTE | 2017-05-05 17:29 | NUR ---
Lungs/Diet/HR Patients baseline RR is 30's, breathing has become more wet since a.m., although denies sob at rest. Left lobes moderately coarse, Md made aware, lasix 20mg x 1 ordered & admin, daily bid dose increased to 40mg from 20mg. Patient currently on a soft/nectar thick diet, unable to safely swallow in later morning, breakfast tray removed, repeat swallow eval requested, have not yet read report, diet has not been changed. ST 140-160's when standing at the bedside w/ PT, c/o sob, 2L NC placed, Md made aware, stated elevated HR is likely d/t being unconditioned & no need to put back on telemetry. Continuing to monitor. Addendum: 05/05/17 at 1738 by CAN BRUNSON RN Addendum: Chest Xray ordered for 05/06 a.m.
[2017-05-05 17:46] VITALS: BP 114/73; PULSE 103; RESP 28; O2SAT 96
[2017-05-05] MEDS: Total Parenteral Nutrition 1 BAG IV SCH (20:30)
[2017-05-05 20:48] VITALS: BP 125/81; PULSE 103; RESP 16; O2SAT 97
[2017-05-05] MEDS: oxyCODONE-Acetamin 5-325 mg Tablet PO PRN (20:56)
[2017-05-05 21:37] VITALS: PULSE 105; RESP 18; O2SAT 97
[2017-05-06] VITALS (13 sets, daily range): BP systolic 108–127; BP diastolic 65–78; PULSE 66–122; RESP 16–24; O2SAT 91–95
--- NOTE | 2017-05-06 06:10 | NUR ---
Pain pt reports 6/10 R hip pain. Oxycodone givne x1, effective. Pt is difficult to understand, speech is very mumbled.
[2017-05-06 06:33] LABS: BASOPHILS % (AUTO) 0.3 % (0-3); EOSINOPHILS % (AUTO) 2.1 % (0-5); MONOCYTES % (AUTO) 6.2 % (4-12); Mean Corpuscular Hemoglobin 27.8 pg (27.0-35.0); Mean Corpuscular Volume 94.8 fL (81-100); NEUTROPHILS % (AUTO) 84.4 % (40-74); Platelet Count 477 bil/L (150-400)
[2017-05-06] MEDS: Albuterol-Ipratropium 3 mL Inhalation Solution NEB SCH ×3 (08:04→20:30)
[2017-05-06 08:09] LABS: Magnesium 2.3 mg/dL (1.6-2.6); Phosphorus 2.6 mg/dL (2.5-4.9)
[2017-05-06] MEDS: TPN Per Pharmacist XX SCH (08:19)
[2017-05-06] MEDS: Sodium Chloride LOK Flush 10 mL Syringe IVFLUSH SCH ×2 (08:19→15:30)
[2017-05-06] MEDS: Furosemide 10 mg/mL 2 mL Inj IVPUSH SCH (08:29)
[2017-05-06] MEDS ORDERED: Albumin 25% 25 GM in IV Premix 1 EACH IV ONE ×2 (08:30→12:45)
--- NOTE | 2017-05-06 08:39 | DRSVH ---
PROCEDURE: X-RAY CHEST ONE VIEW, PORTABLE ([id number]) INDICATIONS: Shortness of breath TECHNIQUE: One view of the chest was acquired. COMPARISON: [facility], CR, XR CHEST 1VW (PORTABLE), 04/30/2017, 17:14. FINDINGS: Surgical changes and devices: None. Lungs and pleura: Slight decreased appearance of bibasilar opacities and minimal effusions. Mediastinum: Mediastinal contours appear normal. Heart size is normal. Bones and chest wall: No suspicious bony lesions. Overlying soft tissues appear unremarkable. IMPRESSION: Slight decreased appearance of by basilar opacities and minimal effusions. Dictated by: Windy Larsen M.D. on 05/06/2017 at 8:37 Approved by: Windy Larsen M.D. on 05/06/2017 at 8:37
[2017-05-06] MEDS ORDERED: 0.9% Sodium Chloride 500 ML IV ONE (08:40)
--- NOTE | 2017-05-06 09:10 | PCM.PNSURG ---
Subjective Date of Service: May 06, 2017 Visit Information: Sigmoid diverticulitis with feculent peritonitis, status post Breen's procedure 03/24/2017 Readmitted with septic shock and NSTEMI since 04/21/2017 Hospital Day # 16 Objective Vital Sign- Last 8 Hours Date Time Temp Pulse Resp B/P Pulse Ox O2 Delivery O2 Flow Rate FiO2 05/06/17 08:04 117 24 91 Room Air 05/06/17 07:30 37.0 117 18 123/73 92 Room Air 05/06/17 05:08 37.2 112 18 108/65 93 Room Air Intake and Output- Last 8 Hour 05/06/17 Cumulative From/Thru 07:00 04/21/17 10:44 - 05/06/17 05:01 Intake Total 751 ml 09341 ml Output Total 46185 ml Balance 751 ml 57365 ml Intake Oral 4399 ml IV Total 03798 ml TPN/PPN 751 ml 4596 ml Packed Cells 301 ml Output Urine Total 98426 ml Stool Total 1430 ml Emesis 15 ml Drainage Total 5 ml # Voids 18 # Bowel Movements 0 General: Other (Somnolent, Nonverbal) Abdomen: Soft, Other (Wound looks good. Depth uncertain) Result Diagram: 05/06/17 0620 05/06/17 0620 Diagnostics: CT with some gas in the pelvis tracking up to the abdominal wound. Assessment & Plan Impression Not sure of the reason for increased somnolence Problems: Plan He could have had a leak from the tony's pouch which drained through the midline wound Restart broad spectrum antibiotics for now Repeat CT Abd/pelvis with PO, without IV contrast when he is able to tolerate PO Will continue to follow closely Wet to dry dressings VTE Prophylaxis: Sub-Q Enoxaparin Resuscitation Status: CPR: Attempt Resuscitation Juan Linder MD May 06, 2017 09:10
--- NOTE | 2017-05-06 09:38 | PCM.PNMED ---
Subjective Date of Service May 06, 2017 Subjective Patient is in the bed, sleepy. Oral mucosa and lips are dry. Lower extremity edema present. Albumin is low. Hemoglobin is 7, has been decreasing over several days. BUN elevated. We will give the patient albumin IV, normal saline bolus. I do not expect his hemoglobin to recover soon in the settings of malnutrition and chronic illness/stress. I will transfuse him with 1 unit of RBC. I discussed with the patient risks and benefits of blood transfusion. Risks included severe allergic reactions, lung damage(TRALI), hepatitis B, C, HIV and others. Patient consented to blood product transfusion. Exam Vital Signs Vital Sign - Last Date Time Temp Pulse Resp B/P Pulse Ox O2 Delivery O2 Flow Rate FiO2 05/06/17 08:04 117 24 91 Room Air 05/06/17 07:30 37.0 123/73 05/05/17 21:37 2.00 Intake and Output 05/05/17 05/05/17 05/06/17 Cumulative From/Thru 15:00 23:00 07:00 04/21/17 10:44 - 05/06/17 05:01 Intake Total 431 ml 751 ml 13384 ml Output Total 1600 ml 43884 ml Balance -1169 ml 751 ml 81623 ml Intake Oral 120 ml 4399 ml IV Total 54439 ml TPN/PPN 311 ml 751 ml 4596 ml Packed Cells 301 ml Output Urine Total 1600 ml 36026 ml Stool Total 1430 ml Emesis 15 ml Drainage Total 5 ml # Voids 18 # Bowel Movements 0 Exam GENERAL: sleepy, not in distress, cooperative, weak HEAD: atraumatic, normocephalic, no bruises. EYES: EOMI, anicteric, able to fully open and close eyelids SKIN: Skin color normal, turgor normal. No visible rashes or lesions. EAR, NOSE, MOUTH, THROAT: Lips, oral mucosa, tongue gums, oropharynx are dry, pink, no lesions NECK: no jugulovenous distention; supple ROM normal. RESPIRATORY: Lungs clear to auscultation. Good diaphragmatic excursion. CARDIAC: normal S1 and S2; no rubs, murmurs, or gallops; regular rhythm ABDOMEN: Abdomen soft, non-tender. BS decreased. No masses or organomegaly. MUSCULOSKELETAL: ROM full, muscles are not tender EXTREMITIES: no pitting edema in LE, no new deformities or skin discoloration. NEURO: Alert, oriented X 2, Sensation grossly intact., Cranial nerves II-XII intact, Grossly normal motor function. PULSES: 2+ radial, 2+ carotid REVIEW OF SYSTEMS: GENERAL: no malaise, no fevers., SEE HPI HEENT: Negative for frequent or significant headaches All other reviewed and negative other than HPI. IVs and Medications Medications Reviewed: Medications were reviewed in detail Lab and Diagnostics Result Diagram: 05/06/1761905/06/17619 Microbiology Blood cultures pending X-Rays, CTs and MRIs . X-RAY CHEST ONE VIEW, PORTABLE IMPRESSION: No acute cardiopulmonary disease. Dictated by: Darius Molina M.D. on 04/21/2017 X-RAY PICC LINE PLACEMENT BY NURSE IMPRESSION: Tip of PICC lies within the lower superior vena cava. Dictated by: Darius Molina M.D. on 04/21/2017 CT ANGIO CHEST PULMONARY EMBOLISM IMPRESSION: 1. No large pulmonary emboli. Respiratory motion artifact limits evaluation for small emboli. 2. Mild bronchial wall thickening within the bilateral infrahilar regions ( left greater than right) may represent bronchitis. 3. New/Increasing right middle lobe ground glass nodules. A three-month followup CT of the chest is recommended with contrast. 4. No lymphadenopathy within the chest. 5. 1.3 cm hypodense left thyroid nodule. Please consider a thyroid ultrasound for further evaluation Dictated by: Tarik Roe M.D. on 04/21/2017 CT ABDOMEN AND PELVIS WITH CONTRAST IMPRESSION: 1. Interval postoperative changes of the bowel with a left lower quadrant colostomy. No bowel obstruction. 2. Mild ascites and moderate mesenteric edema probably is related to interval surgery. No drainable fluid collection or definable abscess is evident. 3. Mild prominence of the vieyra of multiple loops of bowel is nonspecific. However, this appearance may be related to colitis or enteritis and clinical correlation is recommended. 4. Fluid within the rectal stump probably is within normal limits. Other: -Absent right kidney and adrenal gland. -Cholelithiasis. -Hepatic steatosis. -Pancreatic lesion is not well evaluated on this exam. -Unusual appearance of an L1 compression fracture may be related to chronic sclerosis. However, a pathologic compression fracture related to metastatic lesion is difficult to exclude. Dictated by: Tarik Roe M.D. on 04/21/2017 Additional Diagnostics DateTimeAnalyzed 14:02:00 -_ pH ____7.474 - 7.350 7.450 pCO2 ___27.7__ -mmHg 35.0 45.0 pO2 107 -mmHg 69.0 116 HCO3- ___20.1__ -mmol/L 22.0 26.0 ABE ___-2.7__ -mmol/L -2.0 2.0 tHb ____7.0__ -g/dL 12.0 18.0 O2Hb ___96.2__ -% COHb ____1.6__ -% 0.0 1.5 MetHb ____0.5__ -% 0.4 1.5 sO2 ___98.3__ -% 25.0 FIO2 ___32.0__ -% Drawn By as - Date/Time Notified____ 14:08:00 -_ Spontaneous_RR ___26.0__ -b/min Liter_Flow ____3.0__ -L/min Oxygen Device 1 __CANNULA - Notified By AMS - Notified Whom DR OKELLY - B 756 -mmHg tO2 ____9.7__ -Vol% Lion test _Positive - Assessment & Plan Patient is a 71-year-old male with a recent history of partial colectomy secondary to intra-abdominal abscess, diverticular disease presented to ED with syncopal episode , was diagnosed with septic shock, intrabdominal infection. ID and surgery were consulted. Patient was treated with IV antibiotics, IVF. He is malnurished and is on TPN until his oral intake improves. Patient finished antibiotics. Acute intraabdominal inflammation and infection. ielus Transaminitis, present on admission and active - improving - recent ruptured diverticular s/p sigmoid colectomy and colostomy (03/24-04/19) on previous admission - Wound VAC taken out due to concerns for fistula, assessed by surgery : no fistula , continue dressing as directed - Cultures, viral PCR have been negative thus far. - Infectious Disease Dr. Lozoya evaluated the patient, patient finished antibiotics. -Ultrasound of the abdomen 04/07/2017 (last admission) shows a prominent gallbladder (4.2 mm), HIDA scan & MRCP 04/05 clear -HIDA scan obtained on 04/05 shows no evidence of acute cholecystitis. Results as above -IR recommends no additional imaging studies at this point -Surgery on board Plan - continue TPN with possibility of transition to oral , continue dressings Dehydration - IV albumin, IVF, hold Diltiazem and Lasix for now Normocytic anemia - worsening , patient has Hx of CAD - Transfuse 1 u of RBC Severe protein malnutrition - stable, not improving -2nd to recent major surgery, poor po intake Plan -We will continue patient on full liquid nectar thick diet - c/w TPN - IV Albumin Septic shock, present on admission - resolved. - lactic acid was 7.8, tachypneic, tachycardic, leukocytosis with presumed source of abdominal infection, and AMS requiring brief pressor support. -Possible gallbladder disease given enlargement with stones with elevated LFT , HIDA positive for reduce ejection fraction system with chronic cholecystitis. -No intervention per IR/surgery Toxic Encephalopathy -wax-wane mentation , underlying dementia seems like Plan - d/c Seroquel - monitor COPD - stable -O2 support as needed -Duoneb prn , no changes. Coronary artery disease, chronic. History of prior [place] requiring two stents. Elevated troponins - stable. -EKG showed sinus tachycardia with an old inferior infarct Plan -Hold home statins, BP meds Renal cell carcinoma of right kidney, chronic. Presumed stable. -Pt is s/p nephrectomy in October 2016, previously treated with Pazopanib and dexamethasone. -Per recommendations of oncology from prior admission Pazopanib and dexamethasone may be held for 4-6 weeks while patient stabilizes. -CT abd/pelvis renal cyst as above -Hold home meds -Follow up with Oncology as outpatient in 1-2 weeks to deterimine when to resume Pazopanib and dexamethasone. Respiratory alkalosis with metabolic acidosis. - resolved. Essential Hypertension - BP is stable - hold BP meds Diabetes mellitus, type 2 - stable DVT PROPHYLAXIS: Lovenox Code status: DNR/DNI per patient wishes. Disposition: discharge to facility after patient improves. Plan of care discussed with treatment team, Labs, radiology tests, ECG reviewed. Plan of care, medication side effects, home medication, diagnostic procedures and available alternatives were discussed and reviewed with patient. All questions answered. Patient verbalized understanding, approved and agreed to plan of care. GI Prophylaxis: H2 saw VTE Prophylaxis: Sub-Q Enoxaparin VTE Mechanical Devices: Intermittant Pneumatic CD Resuscitation Status: DNR/DNI:Do Not Resuscitate/Intubate Gabriel Arnett MD May 06, 2017 09:38 #. Essential Hypertension, chronic. Present on admission and not active. -Currently hypotensive, requiring blood pressure support -Hold home meds #. Diabetes mellitus, type 2, Present on admission. Presumed stable. -A1c 5.6 -blood glucose low 100' Disposition: Patient will likely go back to [facility] once he becomes medically stable and improved. His progonosis is guarded at this point. GI Prophylaxis: H2 saw VTE Prophylaxis: Sub-Q Enoxaparin VTE Mechanical Devices: Intermittant Pneumatic CD Resuscitation Status: CPR: Attempt Resuscitation Gabriel Arnett MD May 06, 2017 09:38
--- NOTE | 2017-05-06 09:47 | PCM.PHAPRO ---
Progress TPN PARENTERAL NUTRITION ORDERS 9 06-May-17 Standard Hang Time: 2100 Substrates Total kcal: 1464 AMINO ACIDS 95 g DEXTROSE 260 g Total Volume (mL): 1259 LIPIDS 20 g Sterile Water for Injection mL To Infuse Over (hrs): 14 Total Volume 1259.41 mL At at a rate of (mL/hr): 90 Additives Sodium Chloride 80 mEq "typical" daily requirements Sodium Acetate 0 mEq Sodium 50-120mEq Potassium Chloride 30 mEq Potassium 60-120mEq Potassium Phosphate 10 mEq Phosphate 20-40mEq Calcium Gluconate 9.3 mEq Magnesium 8-32mEq Magnesium Sulfate 16 mEq Calcium 9-22mEq Acetate* 80-120mEq Chloride* 80-120mEq Regular Insulin units *Depending on acid-base status Famotidine 40 mg Multivitamins 1 std dose Insulin Regimen Trace Elements 1 std dose none Thiamine mg Regular Low Intensity Subcut Folic Acid mg Regular Medium Intensity Subcut Ascorbic Acid mg Regular High Intensity Subcut Regular Insulin Infusion Other: Special Instructions: To be infused via central line only. For delay or inturruption of TPN contact the pharmacist for alternative replacement solution. Cyclic rate: 48 ML/HR X1 HOUR, THEN 97 ML/HR X 12 HOURS, THEN 48 ML/HR X 1 HR Signature Date: Humberto Saldivar [address] [facility] Ken Freeman Pharm.D May 06, 2017 09:47
--- NOTE | 2017-05-06 10:19 | DRSVH ---
PROCEDURE: CT ABDOMEN AND PELVIS WITH CONTRAST ([id number]) INDICATIONS: ? Uncontrolled intraabdominal sepsis TECHNIQUE: After the administration of intravenous contrast, 5 mm thick sections acquired from the diaphragm to the symphysis. 5 mm coronal and sagittal reformats were acquired. For radiation dose reduction, the following was used: automated exposure control, adjustment of mA and/or kV according to patient annie stafford. COMPARISON: [facility], CT, CT ABD PELVIS W CON, 04/26/2017, 15:53. FINDINGS: Image quality: Excellent. ABDOMEN: Lung bases: Minimal to mild right and minimal left pleural effusions are present. Patchy dependent ch anges are present in the bases bilaterally. Solid organs: Liver and spleen are normal in size and enhancement. Gallbladder demonstrates depende nt stones, unchanged. Biliary system is non dilated. Pancreas enhances normally. No adrenal nodule s. Left kidney is unremarkable. Right kidney is been removed. Peritoneum and bowel: The previously identified appearance of stranding within the mesenteric fat pre dominantly within the right constance-abdomen is relatively unchanged. There is dilated fluid-filled loops of bowel, also without significant interval change. Mild areas of stranding within the pelvic mesent sarbjit fat remain present without appreciable interval change. There has been interval decrease of susan hepatic fluid. Nodes and vessels: No retroperitoneal or mesenteric adenopathy by size criteria. Aorta and inferior vena cava are normal in size. Miscellaneous: No ventral hernias. PELVIS: Genitourinary: Bladder wall thickness is normal. Miscellaneous: No inguinal hernias or adenopathy. Bones: No suspicious bony lesions. No vertebral body compression fractures. IMPRESSION: 1. Bilateral pleural effusions and dependent changes, slightly less prominent when compared to prior exam. 2. Persistent appearance of stranding within the mesenteric fat of the abdomen and pelvis with scatte red areas of fluid. Perihepatic fluid has decreased compared to prior exam. No rim-enhancing abscess collection is identified. 3. Persistent appearance of dilated bowel loops, unchanged. 4. Cholelithiasis, unchanged. Dictated by: Windy Larsen M.D. on 05/06/2017 at 10:10 Approved by: Windy Larsen M.D. on 05/06/2017 at 10:17
[2017-05-06] MEDS: 0.9% Sodium Chloride 250 ML IV SCH ×2 (12:56→15:30)
[2017-05-06] MEDS: 0.9% Sodium Chloride 1,000 ML IV SCH (13:23)
--- NOTE | 2017-05-06 13:30 | NUR ---
NUTRITION FOLLOW-UP: ASSESS: Pt is a 71 YO male admitted with severe sepsis. Pt was recently discharged from [facility] with abdominal abscess secondary to ruptured diverticula requiring sigmoid colectomy and colostomy, now with intraabdominal infection. Wound Vac was removed 05/02 due to concern for fistula, surgery is following. No signs of fistula at this time. His diet was advanced to soft 05/02; however, today he is increasingly somnolent, unable to tolerate soft diet. Speech Therapy downgraded his diet to pureed, nectar thick liquids, which he will likely continue to refuse. TPN running over 12 hr/day, as alk phos continues to be elevated, although trending down, and to stimulate patient's appetite. Family has been delivering food that pt likes, but he still is only eating bites and is mainly just drinking Ensure. RD attempted to speak with pt about his appetite and foods that he likes. Pt had trouble speaking and his speech was very mumbled / gargled. PMHx: CAD, COPD, renal cell carcinoma of right kidney s/p nephrectomy in October 2016, type II diabetes, HTN, dyslipidemia, heartburn, hiatal hernia, GI bleed, sigmoid colectomy with descending colostomy 03/24/2017. DIET: Dysphagia mechanical, nectar thick liquids. PO intake continues minimal. TPN: 260 g dextrose, 95 g AA, 20 g lipids, providing 4.1mg/kg/min (dex), 1.08g/kg/day (AA) and .21g/kg/day (lipids). LABS: Reviewed. CO2 31, BUN 35, Cr 0.64, Glu 166, Ca 7.9, Alk Phos 476, Alb 2.0. MEDICATIONS: Reviewed. Lasix, Seroquel, albumin. GI symptoms / stool: 50 ml output 05/05. Skin Integrity: Abdominal wound beefy red and granulating. Stoma is pink and continues retracted on medial plane. Two pressure ulcers are noted in peristomal skin, glossy pink wound beds, scant drainage noted in removed wafer which is hydrocolloid. ANTHROPOMETRICS: Current Wt: 91.3 kg, BMI: 24.8 kg/m2, admit wt 80.5 kg IBW: 86.3 kg, UBW: 92 kg, 6.5% wt loss x1 month. ESTIMATED NEEDS (malnutrition, wounds): Calories: 3010-4251 kcal (25 - 30 kcal / kg BW) Protein: 105-130g protein (1.2-1.5 g / kg BW) Fluids: ~2165-2595ml/day (25-30ml/kg) NUTRITION DIAGNOSIS: 1) Inadequate oral intake related altered GI function / ileus as evidenced by minimal PO intake- PERSISTS. 2) Severe pro/kcal malnutrition in the context of acute illness as evidence by altered gi function as evidence by PO intake of <50% of estimated energy requirements for >5days, 6.5% wt loss x1 month - PERSISTS. INTERVENTION: 1) Diet per ST. Pt reported that he doesn't mind eggs and encouraged pt to try to eat a least 25% of each meal. 2) Will continue to run TPN x 12 hrs. 3) Will continue to monitor lab trends closely. 4) Recommend considering an appetite stimulant to help increase pt's PO intake. MONITOR/EVALUATE: PO intake, TPN tolerance / advance/rate change, GI status, labs, weight, and nutrition status. Follow up per high nutrition risk guidelines.
[2017-05-06] MEDS: Piperacillin-Tazo 3.375 Gm Inj 3.375 GM in Dextrose 5% Minibag Plus 50 ML IV SCH (15:30)
--- NOTE | 2017-05-06 16:56 | NUR ---
Mentation/PRBC This am, pt somnolent, wakes only to tactile stimuli and loud voice. Speech is very mumbled, unable to assess orientation. Does not follow commands, unable to hold attention. Tachycardic. NPO pending swallow eval. MD aware of pt condition and assessed at bedside. New orders received and implemented. 1 unit PRBC transfused with no s/s adverse effect or transfusion reaction. Temperature slightly elevated prior to transfusion; MD aware. Albumin also given. Pt replaced on remote telemetry, per environmental compliance technician: sinus tach in the 110s-120s.
[2017-05-06] MEDS: Total Parenteral Nutrition 1 BAG IV SCH (21:38)
[2017-05-07] VITALS (9 sets, daily range): BP systolic 115–137; BP diastolic 62–80; PULSE 66–122; RESP 16–20; O2SAT 92–95
[2017-05-07] MEDS: Sodium Chloride LOK Flush 10 mL Syringe IVFLUSH SCH ×3 (00:35→15:42)
[2017-05-07] MEDS: Piperacillin-Tazo 3.375 Gm Inj 3.375 GM in Dextrose 5% Minibag Plus 50 ML IV SCH ×3 (00:35→15:42)
[2017-05-07] MEDS: 0.9% Sodium Chloride 1,000 ML IV SCH ×3 (05:00→18:34)
[2017-05-07 06:14] LABS: Magnesium 2.3 mg/dL (1.6-2.6); Phosphorus 2.1 mg/dL (2.5-4.9)
[2017-05-07] MEDS: TPN Per Pharmacist XX SCH (07:05)
[2017-05-07] MEDS: 0.9% Sodium Chloride 250 ML IV SCH ×2 (07:06→15:56)
[2017-05-07] MEDS: Albuterol-Ipratropium 3 mL Inhalation Solution NEB SCH ×2 (08:30→14:30)
--- NOTE | 2017-05-07 10:46 | PCM.PNSURG ---
Subjective Date of Service: May 07, 2017 Date of Service: May 07, 2017 Visit Information: Reason for Visit Septic Shock,Nstemi Sigmoid diverticulitis with feculent peritonitis, status post Breen's procedure 03/24/2017 Readmitted with septic shock and NSTEMI since 04/21/2017 Subjective: More himself today, interactive and asking questions. No longer somnolent. Received 1u PRBC with improvement in tachycardia from 100s to 60s. Still taking only small amounts PO. Good stoma output. Wound wet to dry dressing changes with continued purulent debris. Objective Vital Sign- Last 8 Hours Date Time Temp Pulse Resp B/P Pulse Ox O2 Delivery O2 Flow Rate FiO2 05/07/17 10:26 110 05/07/17 09:51 36.8 113 19 119/67 94 Room Air 05/07/17 06:24 66 05/07/17 05:00 36.9 109 20 120/68 95 Room Air 05/07/17 04:15 Supplement Oxygen Intake and Output- Last 8 Hour 05/07/17 Cumulative From/Thru 06:58 04/21/17 10:44 - 05/07/17 06:32 Intake Total 30 ml 20452 ml Output Total 450 ml 59935 ml Balance -420 ml 69985 ml Intake Oral 30 ml 4679 ml IV Total 45466 ml TPN/PPN 4596 ml Packed Cells 601 ml Output Urine Total 450 ml 25019 ml Stool Total 0 ml 1480 ml Emesis 15 ml Drainage Total 5 ml # Voids 18 # Bowel Movements 0 General: Alert, Oriented X3, No Acute Distress Abdomen: Other (Lower midline incision opening with granulation tissue but mild seropurulent drainage on gauze when packing removed. Wound redressed. No surrounding erythema or cellulitis. Stoma pink and healthy with green semi formed stool.) Result Diagram: 05/06/17 0620 05/07/17 0535 Assessment & Plan Impression 71 M with sigmoid diverticulitis s/p Breen's procedure readmitted with NSTEMI and septic shock with likely previous Breen's pouch leak and associated inferior midline wound dehiscence. CT yesterday demonstrate a few gas bubbles tracking to wound but these do not appear to be from bowel, bladder or abscess but rather tracking from the dehisced portion of wound. He has clinically improved since holding sedative medication and receiving 1u PRBC with significant improvement in his tachycardia from baseline 100s to 60s today. Overall, clinically improving. Problems: Plan - Continue antibiotics which were resumed yesterday, may consider transitioning to oral antibiotics or stopping - defer to ID but would continue for at least another 24 hours - Continue wet to dry BID dressing changes to midline wound - General Surgery will continue to follow, no additional imaging or interventions at this time VTE Prophylaxis: Sub-Q Enoxaparin Resuscitation Status: DNR/DNI:Do Not Resuscitate/Intubate Yessy العراقي MD May 07, 2017 10:46
[2017-05-07] MEDS ORDERED: Albumin 25% 25 GM in IV Premix 1 EACH IV ONE (10:50)
--- NOTE | 2017-05-07 11:06 | PCM.PNMED ---
Subjective Date of Service May 07, 2017 Subjective Patient seen and examined. Much more awake today. Vitals noted. Exam Vital Signs Vital Sign - Last Date Time Temp Pulse Resp B/P Pulse Ox O2 Delivery O2 Flow Rate FiO2 05/07/17 10:26 110 05/07/17 09:51 36.8 19 119/67 94 Room Air 05/05/17 21:37 2.00 Intake and Output 05/06/17 05/06/17 05/07/17 Cumulative From/Thru 15:00 23:00 07:00 04/21/17 10:44 - 05/07/17 06:32 Intake Total 150 ml 1910 ml 30 ml 49455 ml Output Total 1250 ml 750 ml 450 ml 69183 ml Balance -1100 ml 1160 ml -420 ml 35311 ml Intake Oral 150 ml 100 ml 30 ml 4679 ml IV Total 1510 ml 09211 ml TPN/PPN 4596 ml Packed Cells 300 ml 601 ml Output Urine Total 1200 ml 750 ml 450 ml 80548 ml Stool Total 50 ml 0 ml 1480 ml Emesis 15 ml Drainage Total 5 ml # Voids 18 # Bowel Movements 0 Exam GENERAL: sleepy, not in distress, cooperative, weak HEAD: atraumatic, normocephalic, no bruises. EYES: EOMI, anicteric, able to fully open and close eyelids SKIN: Skin color normal, turgor normal. No visible rashes or lesions. EAR, NOSE, MOUTH, THROAT: Lips, oral mucosa, tongue gums, oropharynx are dry, pink, no lesions NECK: no jugulovenous distention; supple ROM normal. RESPIRATORY: Lungs clear to auscultation. Good diaphragmatic excursion. CARDIAC: normal S1 and S2; no rubs, murmurs, or gallops; regular rhythm ABDOMEN: Abdomen soft, non-tender. BS decreased. No masses or organomegaly. MUSCULOSKELETAL: ROM full, muscles are not tender EXTREMITIES: no pitting edema in LE, no new deformities or skin discoloration. NEURO: Alert, oriented X 2, Sensation grossly intact., Cranial nerves II-XII intact, Grossly normal motor function. PULSES: 2+ radial, 2+ carotid Lab and Diagnostics Result Diagram: 05/06/17 0620 05/07/17 0535 Microbiology Blood cultures pending X-Rays, CTs and MRIs . X-RAY CHEST ONE VIEW, PORTABLE IMPRESSION: No acute cardiopulmonary disease. Dictated by: Darius Molina M.D. on 04/21/2017 X-RAY PICC LINE PLACEMENT BY NURSE IMPRESSION: Tip of PICC lies within the lower superior vena cava. Dictated by: Darius Molina M.D. on 04/21/2017 CT ANGIO CHEST PULMONARY EMBOLISM IMPRESSION: 1. No large pulmonary emboli. Respiratory motion artifact limits evaluation for small emboli. 2. Mild bronchial wall thickening within the bilateral infrahilar regions ( left greater than right) may represent bronchitis. 3. New/Increasing right middle lobe ground glass nodules. A three-month followup CT of the chest is recommended with contrast. 4. No lymphadenopathy within the chest. 5. 1.3 cm hypodense left thyroid nodule. Please consider a thyroid ultrasound for further evaluation Dictated by: Tarik Roe M.D. on 04/21/2017 CT ABDOMEN AND PELVIS WITH CONTRAST IMPRESSION: 1. Interval postoperative changes of the bowel with a left lower quadrant colostomy. No bowel obstruction. 2. Mild ascites and moderate mesenteric edema probably is related to interval surgery. No drainable fluid collection or definable abscess is evident. 3. Mild prominence of the vieyra of multiple loops of bowel is nonspecific. However, this appearance may be related to colitis or enteritis and clinical correlation is recommended. 4. Fluid within the rectal stump probably is within normal limits. Other: -Absent right kidney and adrenal gland. -Cholelithiasis. -Hepatic steatosis. -Pancreatic lesion is not well evaluated on this exam. -Unusual appearance of an L1 compression fracture may be related to chronic sclerosis. However, a pathologic compression fracture related to metastatic lesion is difficult to exclude. Dictated by: Tarik Roe M.D. on 04/21/2017 Additional Diagnostics DateTimeAnalyzed 14:02:00 -_ pH ____7.474 - 7.350 7.450 pCO2 ___27.7__ -mmHg 35.0 45.0 pO2 107 -mmHg 69.0 116 HCO3- ___20.1__ -mmol/L 22.0 26.0 ABE ___-2.7__ -mmol/L -2.0 2.0 tHb ____7.0__ -g/dL 12.0 18.0 O2Hb ___96.2__ -% COHb ____1.6__ -% 0.0 1.5 MetHb ____0.5__ -% 0.4 1.5 sO2 ___98.3__ -% 25.0 FIO2 ___32.0__ -% Drawn By as - Date/Time Notified____ 14:08:00 -_ Spontaneous_RR ___26.0__ -b/min Liter_Flow ____3.0__ -L/min Oxygen Device 1 __CANNULA - Notified By AMS - Notified Whom DR OKELLY - B 756 -mmHg tO2 ____9.7__ -Vol% Lion test _Positive - Assessment & Plan Patient is a 71-year-old male with a recent history of partial colectomy secondary to intra-abdominal abscess, diverticular disease presented to ED with syncopal episode , was diagnosed with septic shock, intrabdominal infection. ID and surgery were consulted. Patient was treated with IV antibiotics, IVF. He is malnurished and is on TPN until his oral intake improves. Patient finished antibiotics. Acute intraabdominal inflammation and infection. ielus Transaminitis, present on admission and active - improving - recent ruptured diverticular s/p sigmoid colectomy and colostomy (03/24-04/19) on previous admission - Wound VAC taken out due to concerns for fistula, assessed by surgery : no fistula , continue dressing as directed - Cultures, viral PCR have been negative thus far. - Infectious Disease Dr. Lozoya evaluated the patient, abx stopped earlier. However, patient spiked fevers yesterday, with pct trending up, was restarted on zosyn -Ultrasound of the abdomen 04/07/2017 (last admission) shows a prominent gallbladder (4.2 mm), HIDA scan & MRCP 04/05 clear -HIDA scan obtained on 04/05 shows no evidence of acute cholecystitis. Results as above -IR recommends no additional imaging studies at this point -Surgery on board Plan - continue TPN with possibility of transition to oral , continue dressings - continue abx zosyn, will touch based with ID again, continue trending procalcitonin and white cell count Dehydration - IV albumin, IVF, hold Lasix for now - patient's hr still high with albumin administration today, going upto 120s, will restart diltiazem - will continue albumin today, assess his response 24 hours Normocytic anemia - Transfused 1 u of RBC yesterday - will repeat CBCs. today - tranfuse blood if hgb <8.0 Severe protein malnutrition - stable, not improving -2nd to recent major surgery, poor po intake - patient failed swallow eval today, will not fluorscopic eval tomorrow Plan -We will continue patient on full liquid nectar thick diet - c/w TPN - IV Albumin Septic shock, present on admission - resolved. - lactic acid was 7.8, tachypneic, tachycardic, leukocytosis with presumed source of abdominal infection, and AMS requiring brief pressor support. -Possible gallbladder disease given enlargement with stones with elevated LFT , HIDA positive for reduce ejection fraction system with chronic cholecystitis. -No intervention per IR/surgery Toxic Encephalopathy -wax-wane mentation , underlying dementia seems like Plan - d/c Seroquel - monitor COPD - stable -O2 support as needed -Duoneb prn , no changes. Coronary artery disease, chronic. History of prior ND requiring two stents. Elevated troponins - stable. -EKG showed sinus tachycardia with an old inferior infarct Plan -Hold home statins, BP meds Renal cell carcinoma of right kidney, chronic. Presumed stable. -Pt is s/p nephrectomy in October 2016, previously treated with Pazopanib and dexamethasone. -Per recommendations of oncology from prior admission Pazopanib and dexamethasone may be held for 4-6 weeks while patient stabilizes. -CT abd/pelvis renal cyst as above -Hold home meds -Follow up with Oncology as outpatient in 1-2 weeks to deterimine when to resume Pazopanib and dexamethasone. Respiratory alkalosis with metabolic acidosis. - resolved. Essential Hypertension - BP is stable - hold BP meds Diabetes mellitus, type 2 - stable DVT PROPHYLAXIS: Lovenox Code status: DNR/DNI per patient wishes. Disposition: discharge to facility after patient improves. Patient's condition is deteriorating, or not improving generally. His nutrition status is poor at this point. Will discuss with family and possibly get palliative care involved to address his wishes. GI Prophylaxis: H2 saw VTE Prophylaxis: Sub-Q Enoxaparin VTE Mechanical Devices: Intermittant Pneumatic CD Resuscitation Status: DNR/DNI:Do Not Resuscitate/Intubate Time spent 35 mins Loyd Sage MD May 07, 2017 11:06 Loyd Sage MD May 07, 2017 11:06
[2017-05-07 11:18] LABS: BASOPHILS % (AUTO) 0.4 % (0-3); EOSINOPHILS % (AUTO) 4.2 % (0-5); MONOCYTES % (AUTO) 8.5 % (4-12); Mean Corpuscular Hemoglobin 27.8 pg (27.0-35.0); Mean Corpuscular Volume 92.5 fL (81-100); NEUTROPHILS % (AUTO) 81.5 % (40-74); Platelet Count 444 bil/L (150-400)
[2017-05-07] MEDS: Albumin 25% 25 GM in IV Premix 1 EACH IV SCH ×2 (12:27→18:01)
--- NOTE | 2017-05-07 13:33 | NUR ---
Tele gem technician reports HR dropping into 40s, then back up to sinus tach in the 110s. Has concerns for tachy-mariza syndrome. Pt is asymptomatic. MD informed; 12 lead EKG ordered, pending.
[2017-05-07] MEDS ORDERED: Albuterol-Ipratropium 3 mL Inhalation Solution NEB PRN (18:25)
[2017-05-07] MEDS: Total Parenteral Nutrition 1 BAG IV SCH (21:00)
[2017-05-08] VITALS (11 sets, daily range): BP systolic 125–139; BP diastolic 73–83; PULSE 85–122; RESP 16–28; O2SAT 93–95
[2017-05-08] MEDS: Sodium Chloride LOK Flush 10 mL Syringe IVFLUSH SCH ×3 (00:57→16:30)
[2017-05-08] MEDS: Piperacillin-Tazo 3.375 Gm Inj 3.375 GM in Dextrose 5% Minibag Plus 50 ML IV SCH ×3 (00:58→17:13)
--- NOTE | 2017-05-08 03:14 | NUR ---
HR/Picc/Albumin Pt receiving albumin at start of shift, HR between 80-112 during the final stages of this infusion. Diltiazem PO restarted, still no changes to HRR. Pt NPO exept meds, tolerated well with apple sauce. Oral care after intake. Pt has 3xpicc with only 2 lumens viable, since TPN infusing, postponed IV albumin at 0300 due to zosyn hanging- clarified with pharmacy. [place] is patent and draining odalys urine. Colostomy output is green liquid. Pt has no abdominal pain or chest pain. LS coarse but denies SOB. Calmoseptine applied to coccyx reddened area, no skin breakdown noted during bed bath. Care continues
--- NOTE | 2017-05-08 05:30 | NUR ---
Tele ict support technicians called RN due to shift from Sinus Tach 144 to junctional rythm/mariza 37. Eyes on pt, easily rousable and states no chest pain, dizziness. Pt baseline confused, poor indicator of condition. Return to Sinus tach 144. MD notified via cook page at 0530, no new orders. See paper chart for copy of tele strip.
[2017-05-08] MEDS: Albumin 25% 25 GM in IV Premix 1 EACH IV SCH (05:58)
[2017-05-08 06:19] LABS: BASOPHILS % (AUTO) 0.4 % (0-3); MONOCYTES % (AUTO) 6.1 % (4-12); Mean Corpuscular Volume 92.4 fL (81-100); NEUTROPHILS % (AUTO) 82.8 % (40-74); Platelet Count 443 bil/L (150-400)
[2017-05-08 06:38] LABS: Magnesium 2.3 mg/dL (1.6-2.6); Phosphorus 2.6 mg/dL (2.5-4.9)
[2017-05-08] MEDS: TPN Per Pharmacist XX SCH (08:30)
[2017-05-08] MEDS: 0.9% Sodium Chloride 250 ML IV SCH ×2 (08:56→20:02)
--- NOTE | 2017-05-08 09:04 | PCM.PNMED ---
Subjective Date of Service May 08, 2017 Subjective Patient seen and examined. Alert and oriented X 2. Vitals stable. Exam Vital Signs Vital Sign - Last Date Time Temp Pulse Resp B/P Pulse Ox O2 Delivery O2 Flow Rate FiO2 05/08/17 06:15 36.8 103 18 131/75 94 Room Air 05/05/17 21:37 2.00 Intake and Output 05/07/17 05/07/17 05/08/17 Cumulative From/Thru 15:00 23:00 07:00 04/21/17 10:44 - 05/08/17 06:36 Intake Total 1822 ml 1672 ml 0 ml 78264 ml Output Total 1100 ml 500 ml 83972 ml Balance 1822 ml 572 ml -500 ml 81677 ml Intake Oral 200 ml 0 ml 4879 ml IV Total 1022 ml 1040 ml 75839 ml TPN/PPN 800 ml 432 ml 5828 ml Packed Cells 601 ml Output Urine Total 500 ml 500 ml 24247 ml Stool Total 600 ml 0 ml 2080 ml Emesis 15 ml Drainage Total 5 ml # Voids 18 # Bowel Movements 0 Exam GENERAL: Awake and alert. Oriented X 2. HEAD: atraumatic, normocephalic, no bruises. EYES: EOMI, anicteric, able to fully open and close eyelids SKIN: Skin color normal, turgor normal. No visible rashes or lesions. EAR, NOSE, MOUTH, THROAT: Lips, oral mucosa, tongue gums, oropharynx are dry, pink, no lesions NECK: no jugulovenous distention; supple ROM normal. RESPIRATORY: Lungs clear to auscultation. Good diaphragmatic excursion. Wheezing a bit today. CARDIAC: normal S1 and S2; no rubs, murmurs, or gallops; regular rhythm ABDOMEN: Distended, stomy producing brown/greenish stool. EXTREMITIES: pitting edema in LE, no new deformities or skin discoloration. NEURO: Alert, oriented X 2, Sensation grossly intact., Cranial nerves II-XII intact, Grossly normal motor function. PULSES: 2+ radial, 2+ carotid Lab and Diagnostics Result Diagram: 05/08/17 0555 05/08/17 05 Microbiology Blood cultures pending X-Rays, CTs and MRIs . X-RAY CHEST ONE VIEW, PORTABLE IMPRESSION: No acute cardiopulmonary disease. Dictated by: Darius Molina M.D. on 04/21/2017 X-RAY PICC LINE PLACEMENT BY NURSE IMPRESSION: Tip of PICC lies within the lower superior vena cava. Dictated by: Darius Molina M.D. on 04/21/2017 CT ANGIO CHEST PULMONARY EMBOLISM IMPRESSION: 1. No large pulmonary emboli. Respiratory motion artifact limits evaluation for small emboli. 2. Mild bronchial wall thickening within the bilateral infrahilar regions ( left greater than right) may represent bronchitis. 3. New/Increasing right middle lobe ground glass nodules. A three-month followup CT of the chest is recommended with contrast. 4. No lymphadenopathy within the chest. 5. 1.3 cm hypodense left thyroid nodule. Please consider a thyroid ultrasound for further evaluation Dictated by: Tarik Roe M.D. on 04/21/2017 CT ABDOMEN AND PELVIS WITH CONTRAST IMPRESSION: 1. Interval postoperative changes of the bowel with a left lower quadrant colostomy. No bowel obstruction. 2. Mild ascites and moderate mesenteric edema probably is related to interval surgery. No drainable fluid collection or definable abscess is evident. 3. Mild prominence of the vieyra of multiple loops of bowel is nonspecific. However, this appearance may be related to colitis or enteritis and clinical correlation is recommended. 4. Fluid within the rectal stump probably is within normal limits. Other: -Absent right kidney and adrenal gland. -Cholelithiasis. -Hepatic steatosis. -Pancreatic lesion is not well evaluated on this exam. -Unusual appearance of an L1 compression fracture may be related to chronic sclerosis. However, a pathologic compression fracture related to metastatic lesion is difficult to exclude. Dictated by: Tarik Roe M.D. on 04/21/2017 Additional Diagnostics DateTimeAnalyzed 14:02:00 -_ pH ____7.474 - 7.350 7.450 pCO2 ___27.7__ -mmHg 35.0 45.0 pO2 107 -mmHg 69.0 116 HCO3- ___20.1__ -mmol/L 22.0 26.0 ABE ___-2.7__ -mmol/L -2.0 2.0 tHb ____7.0__ -g/dL 12.0 18.0 O2Hb ___96.2__ -% COHb ____1.6__ -% 0.0 1.5 MetHb ____0.5__ -% 0.4 1.5 sO2 ___98.3__ -% 25.0 FIO2 ___32.0__ -% Drawn By as - Date/Time Notified____ 14:08:00 -_ Spontaneous_RR ___26.0__ -b/min Liter_Flow ____3.0__ -L/min Oxygen Device 1 __CANNULA - Notified By AMS - Notified Whom DR JOHNSON - B 756 -mmHg tO2 ____9.7__ -Vol% Lion test _Positive - Assessment & Plan Patient is a 71-year-old male with a recent history of partial colectomy secondary to intra-abdominal abscess, diverticular disease presented to ED with syncopal episode , was diagnosed with septic shock, intrabdominal infection. ID and surgery were consulted. Patient was treated with IV antibiotics, IVF. He is malnurished and is on TPN until his oral intake improves. Patient finished antibiotics. Acute intraabdominal inflammation and infection. ielus Transaminitis, present on admission and active - improving - recent ruptured diverticular s/p sigmoid colectomy and colostomy (03/24-04/19) on previous admission - Wound VAC taken out due to concerns for fistula, assessed by surgery : no fistula , continue dressing as directed - Cultures, viral PCR have been negative thus far. - Infectious Disease Dr. Lozoya evaluated the patient, abx stopped earlier. However, patient spiked fevers yesterday, with pct trending up, was restarted on zosyn, pct trending down again -Ultrasound of the abdomen 04/07/2017 (last admission) shows a prominent gallbladder (4.2 mm), HIDA scan & MRCP 04/05 clear -HIDA scan obtained on 04/05 shows no evidence of acute cholecystitis. Results as above -IR recommends no additional imaging studies at this point -Surgery on board Plan - continue TPN with possibility of transition to oral , continue dressings - continue abx zosyn, will touch based with ID again, continue trending procalcitonin and white cell count Dehydration - IV albumin, IVF given yesterday - helped improve bun , will not see elevation in cr in setting of ej as patient 's nutrition status is poor - HR didnt improve with albumin + fluids, restarted on diltiazem - continue tpn, hold fluids for now Sinus tachycardia - likely 2/2 to multiple etiologies contributing : malnutrition associated low intravascular volume, anemia , underlying infection - considering patient's cardiac history, will control HR actively Normocytic anemia - tranfuse blood if hgb <8.0, h/o cardiac condition - Hgb trended down today , will transfuse, already got tranfusion day before yesterday Severe protein malnutrition - stable, improving slowly -2nd to recent major surgery, poor po intake - patient failed swallow eval today, will not fluorscopic eval tomorrow Plan -We will continue patient on full liquid nectar thick diet - c/w TPN - IV Albumin given for 2 days in a row Septic shock, present on admission - resolved. - lactic acid was 7.8, tachypneic, tachycardic, leukocytosis with presumed source of abdominal infection, and AMS requiring brief pressor support. -Possible gallbladder disease given enlargement with stones with elevated LFT , HIDA positive for reduce ejection fraction system with chronic cholecystitis. -No intervention per IR/surgery Toxic Encephalopathy -wax-wane mentation , underlying dementia seems like Plan - d/c Seroquel - monitor COPD - stable -O2 support as needed -Duoneb prn , no changes. Coronary artery disease, chronic. History of prior UT requiring two stents. Elevated troponins - stable. -EKG showed sinus tachycardia with an old inferior infarct Plan -Hold home statins, BP meds Renal cell carcinoma of right kidney, chronic. Presumed stable. -Pt is s/p nephrectomy in October 2016, previously treated with Pazopanib and dexamethasone. -Per recommendations of oncology from prior admission Pazopanib and dexamethasone may be held for 4-6 weeks while patient stabilizes. -CT abd/pelvis renal cyst as above -Hold home meds -Follow up with Oncology as outpatient in 1-2 weeks to deterimine when to resume Pazopanib and dexamethasone. Respiratory alkalosis with metabolic acidosis. - resolved. Essential Hypertension - BP is stable - hold BP meds Diabetes mellitus, type 2 - stable DVT PROPHYLAXIS: Lovenox Code status: DNR/DNI per patient wishes. Disposition: discharge to facility after patient improves. Patient's condition is deteriorating, or not improving generally. His nutrition status is poor at this point. Will discuss with family and possibly get palliative care involved to address his wishes. GI Prophylaxis: H2 saw VTE Prophylaxis: Sub-Q Enoxaparin VTE Mechanical Devices: Intermittant Pneumatic CD Resuscitation Status: DNR/DNI:Do Not Resuscitate/Intubate Time spent 35 mins Loyd Sage MD May 08, 2017 09:04
--- NOTE | 2017-05-08 11:11 | NUR ---
Palliative Care Order received from Dr Sage 05/07/17 to assist with goals of care. Patient admitted 04/21/17. Augustina () [phone] Bang (son) [phone] Palliative Care will have FCTM today 2 pm with Augustina. Olinda Taylor
--- NOTE | 2017-05-08 11:54 | NUR ---
Inpatient Wound Nurse Patient seen for abdominal wound care. Abdominal wound beefy red and granulating. Removed gauze saturated with serosanguinous fluid and bordered 4x4 Mepilex was also saturated. Measurements today, in flat, supine position (as usual) are 6 cm L x 3.5 cm W. Please note that these dimensions are variable dependent on patient's positioning. Distal tunnel is unchanged at 6 cm D. Proximal tunnel is improved at 3.5 cm D. Wound was cleansed, blotted dry, then packed with sterile gauze saturated with NS and covered with bordered 4x4 Mepilex dressing. CWON RN will see patient tomorrow (Monday) for wound care and continue Monday-Monday ostomy system changes. CWON RN will provide the Monday through Monday a.m. dressing change for BID dressing changes to abdominal incision.
--- NOTE | 2017-05-08 12:54 | NUR ---
NUTRITION FOLLOW-UP: ASSESS: 71 YO male admitted with severe sepsis. Pt was recently discharged from [facility] with abdominal abscess secondary to ruptured diverticula requiring sigmoid colectomy and colostomy, now with intraabdominal infection. Wound Vac was removed 05/02 due to concern for fistula, surgery is following. No signs of fistula at this time. Pt continues with pureed diet ordered but appears to be NPO X 2 days. TPN running over 12 hr/day, as alk phos continues to be elevated, although trending down, and to stimulate patient's appetite. Family has been delivering food that pt likes, but he still is only eating bites and is mainly just drinking Ensure. RD previously attempted to speak with pt about his appetite and foods that he likes. Pt had trouble speaking and his speech was very mumbled / gargled. PMHx: CAD, COPD, renal cell carcinoma of right kidney s/p nephrectomy in October 2016, type II diabetes, HTN, dyslipidemia, heartburn, hiatal hernia, GI bleed, sigmoid colectomy with descending colostomy 03/24/2017. DIET: Pureed, nectar thick liquids. PO intake continues minimal. TPN: 260 g dextrose, 95 g AA, 20 g lipids, providing 1464 kcal, 95 g protein; meeting 68% calorie, 90% protein needs. [4.1 mg/kg/min (dex), 1.08 g/kg/day (AA) and .21g/kg/day (lipids)]. LABS: Reviewed. Cr 0.49, Glu 168, Ca 8.0, Alk Phos 368, Alb 2.8 MEDICATIONS: Reviewed. Senna. GI: Stool via colostomy. SKIN: Abdominal wound. Two pressure ulcers are noted in peristomal skin. ANTHROPOMETRICS: Current Wt: 89.2 kg, BMI: 25.2 kg/m2, admit wt 80.5 kg, IBW: 86.3 kg, UBW: 92 kg, 6.5% wt loss x 1 month. ESTIMATED NEEDS (malnutrition, wounds): Calories: 5747-7442 kcal/day (25-30 kcal/kg BW) Protein: 105-130 g/day (1.2-1.5 g/kg BW) Fluids: ~7175-7779 ml/day (25-30 ml/kg) NUTRITION DIAGNOSIS: 1) Inadequate oral intake related altered GI function / ileus as evidenced by minimal PO intake- PERSISTS. 2) Severe pro/kcal malnutrition in the context of acute illness as evidence by altered gi function as evidence by PO intake of <50% of estimated energy requirements for >5days, 6.5% wt loss x1 month - PERSISTS. INTERVENTION: 1) Diet advance per speech therapy. If pt continues without PO intake, recommend consideration of increasing TPN to better meet pt's estimated. 2) Will continue to run TPN x 12 hr. 3) Will continue to monitor lab trends closely. 4) Recommend considering an appetite stimulant to help increase pt's PO intake. MONITOR/EVALUATE: PO intake, TPN tolerance/advance/rate change, GI status, labs, weight, and nutrition status. Follow up per high nutrition risk guidelines.
--- NOTE | 2017-05-08 13:18 | PROG NOTE ---
[address] [address] PROGRESS NOTE PATIENT: JOSAFAT SOLIS : 1945 MR#: [id number] ADMIT: 04/21/2017 JOB ID: [id number] DATE: 05/08/2017 REASON FOR FOLLOW UP: Recrudescent fever in a patient with recent complicated intra-abdominal infection. INTERVAL HISTORY: Recall that I had signed off on this patient back on May 03, as he had completed a prolonged course of intravenous broad-spectrum antibacterial and antifungal agents for sepsis. The exact source of his sepsis was never determined, but it was certainly felt to be in the right side of his abdomen as he was quite tender there. An extensive workup by Radiology and Surgery failed to disclose a clear cause of his right-sided abdominal pain, however, and he eventually improved and we were able to stop all antibiotics on May 03. At that time, he had been on Zosyn and micafungin and we had no positive cultures of any kind. At least on May 03, he was able to eat and drink reasonably well without difficulty, but he was still requiring TPN because of poor overall intake. He was also continuing to be essentially bedridden and to have very slow recovery, but at least his abdominal symptoms had improved over the weekend, and since I have last seen him, the patient has developed some increased somnolence, and because of concerns about possible recrudescent infection, Zosyn was restarted. Insofar as I can tell, no cultures were done but some additional imaging was performed on May 06, when his antibiotics were restarted. Over the past 48 hours, the patient has had his first fever spike in the past two weeks basically with a fever spike during the night to 38.7, which has heightened concerns about possible infection. In terms of speaking to the patient this morning, he remains easily arousable and will answer questions, some of which are appropriate. The nurses tell me he has been in an out in terms of his orientation. Recall that late last week, the patient was actually able to tell a couple jokes and seemed to be approaching full orientation, but he is has clearly been backsliding in terms of his mental status. Today he tells me he has no fevers or chills, but he does say he feels cold all the time. No significant cough or shortness of breath, though he does appear a bit dyspneic even as he tells me that and he denies significant GI complaints. PHYSICAL EXAMINATION: Reveals a chronically ill-appearing gentleman lying supine in his hospital bed. Temp 38.7, pulse 110, respiratory rate 23, blood pressure 139/79. He is saturating well on room air and he is in no acute distress. He does appear to be working a bit hard to breathe, and as mentioned, he is not as oriented he was last week. His eyes are without conjunctivitis. Oral cavity basically negative. He has a central line and TPN is infusing through that line. His lungs are notable for decreased breath sounds, scattered rales and rhonchi bilaterally. Cardiac tones: Regular rate and rhythm without significant murmur. His abdomen is notable for the presence of a colostomy as well as the midline wound below the umbilicus, which we have evaluated previously. There is also a sense of fullness in the right side of his abdomen which is quite significant but entirely nontender as the patient has hypoactive bowel tones but his abdomen seems otherwise quite benign today. He has a [place] catheter. He has no abnormalities of the penile meatus, no skin rashes noted. He has 1+ edema at both ankles. LABORATORIES: Include a white count quite stable at 13,000. Differential: 82% segs, and that has been constant for a long while. Creatinine 0.49. LFTs basically normal except for an alk phos which continues to slowly drop. It is currently 368. Procalcitonin 0.52. Micro studies date back more than two weeks. We have no recent micro whatsoever, despite restarting antibiotics. Chest x-ray on May 06 shows decreased bibasilar infiltrates and an abdominal CT scan, done also on May 06, shows bilateral pleural effusions with atelectasis, less than prior CTs, however. Also noted is some stranding in the mesenteric fat of the abdomen and pelvis. The perihepatic fluid has decreased compared to prior exams and no rim enhancing abscess collection is definitively identified. There are still some dilated bowel loops which is unchanged and gallstones without evidence of cholecystitis. The radiologist's opinion was that CT of the abdomen could be indicative of intra-abdominal infection but it was not clear-cut. IMPRESSION: This is an extremely difficult case of a gentleman who has now been here in the hospital for greater than one month, with the exception of a very brief, one day or so outside the hospital. At this point, he is profoundly debilitated, spending most of his time lying supine in bed. He is able to eat, but his oral intake is not adequate and he has been on TPN now for quite some time. I felt that he appeared uninfected and stopped his antibiotics on May 03, but because of concerns with respect to decreasing mental status and the CT findings, the patient was restarted on Zosyn on May 06. He remains at high risk for intra-abdominal infection, and I suspect this is the cause of his new fevers as well as his somewhat decreased mental status. He is certainly at high risk for fungemia given recent abdominal surgery, broad-spectrum antibiotics, and TPN. I see no evidence for skin infection and little to suggest pneumonia. RECOMMENDATIONS: 1. Will get fungal blood cultures x2 today. 2. Will restart the patient on micafungin as I think that disseminated fungal infection is a real risk here. 3. This case discussed in detail with the bedside nurse, as well as with the hospitalist. 4. I wonder if this patient's case should be reviewed by Palliative Care at some point, as it seems as if we are now into our sixth week or so of treatment of this patient and is really in no way ready even to get out of bed consistently, eat a regular diet, or make much progress towards rehabilitation. 5. ID will continue to follow this case with you.
--- NOTE | 2017-05-08 13:34 | PCM.PHAPRO ---
Progress TPN TPN Management: -Day 11 of TPN -electrolytes have remained stable -cyclic TPN -formula for this evening: PARENTERAL NUTRITION ORDERS 07 08-Apr- Substrates AMINO ACIDS 95 g DEXTROSE 260 g LIPIDS 20 g Sterile Water for Injection mL Total Volume 1300 mL Additives Sodium Chloride 70 mEq Sodium Acetate mEq Potassium Chloride 40 mEq Potassium Phosphate 30 mEq Calcium Gluconate 8 mEq Magnesium Sulfate 12 mEq Regular Insulin units Famotidine 40 mg Multivitamins 1 std dose Trace Elements 1 std dose Thiamine mg Folic Acid mg Ascorbic Acid mg -will continue to follow Malia Guardado [facility] May 08, 2017 13:34
[2017-05-08] MEDS: Micafungin Inj 100 MG in 0.9% Sodium Chloride 100 ML IV SCH (14:23)
--- NOTE | 2017-05-08 14:29 | NUR ---
Barium swallow study cancelled per MD due pt NPO status for small bowel obstruction. ST signing off on pt, please re-refer to ST once pt is appropriate for PO trials.
--- NOTE | 2017-05-08 15:14 | NUR ---
Social Work: Continued Discharge Planning/Multidisciplinary Rounds D: EMR reviewed. Pt is on day 17 of hospitalization. Pt discussed in multidisciplinary rounds and is not medically stable for discharge at this time. Pt is no longer weaning off TPN - TPN in full use at this point. MD to order Palliative consult. ST recommending Barium Swallow - anticipate several more days pending prognosis. [facility] continues to able to accept pt when medically stable with Dr. Parmar to follow. SW will continue to follow. T/C and voicemail to pt's spouse regarding bedside rounding meeting. SW requested spouse to come to bedside rounding meeting with medical team between 1000 and 1100 tomorrow. A: Pt for whom a SNF is medically necessary. Pt's prognosis declining - palliative care team consulted by MD today. P: Evolving; Pt has been accepted to [facility] when medically stable. Pt's prognosis declining - palliative care team consulted by MD today. Pt is no longer weaning off TPN - [facility] will not accept pt with TPN. SW will continue to follow. [facility] [place]
--- NOTE | 2017-05-08 16:56 | DRSVH ---
PROCEDURE: X-RAY ABDOMEN, ONE VIEW ([id number]) INDICATIONS: Distention TECHNIQUE: One view of the abdomen acquired. COMPARISON: [facility], CT, CT ABD PELVIS W CON, 05/06/2017, 9:40. FINDINGS: Surgical changes and devices: None. Bowel: Abnormal bowel gas pattern is present. Asymmetric dilatation of small bowel throughout the ab domen and pelvis with gas within the colon. No pneumatosis or bowel wall thickening. No pneumoperit oneum. Soft tissues: No suspicious abdominal calcifications. Visualized solid organ contours appear normal in size. Bones: No suspicious bony lesions. IMPRESSION: Radiographic findings suggesting persistent partial small bowel obstruction. Dictated by: Abiodun LINDSEY Interpreted: Windy Larsen MD on 05/08/2017 at 10:56 Approved by: Windy Larsen M.D. on 05/08/2017 at 16:54
--- NOTE | 2017-05-08 18:00 | NUR ---
Activity/Pain Patient Q2 turned. Reported back pain but declined pain medications. Denied nausea this shift. [place] patent and flowing to gravity. Dressing CDI. Call light and tray table within reach. Will continue to monitor patient hourly.
--- NOTE | 2017-05-08 20:27 | DRSVH ---
[facility] [address] [place] [address] Echocardiogram Report Name: JOSAFAT SOLIS Study Date: 05/08/2017 Height: 74 in Hospital Exam Location: [facility] Weight: 197 lb Gender: Male BSA: 2.2 m2 : 1945 Age: 71 yrs BP: 131/75 mmHg Reason For Study: TACHY DIAMOND Ordering Physician: Performed By: Micheal Harrison Interpretation Summary 1. Normal LV size and hyperdynamic function. 2. Mild left atrial enlargement. Normal right atrial size. 3. Age appropriate sclero-degenerative valves. Normal valve function. No evidence of vegetation to explain the infection. 4. Normal pericardium without effusion. Procedure: A two-dimensional transthoracic echocardiogram with color flow and Doppler was performed. The study quality was technically adequate. Comparison is made with the echocardiogram of 10/20/16. The subcostal views were difficult to obtain and are suboptimal in quality. The patient was in normal sinus rhythm during the exam. The patient had a heart rate of 75-118 beats per minute. Left Ventricle: The left ventricle is normal in size. There is normal left ventricular wall thickness. The ejection fraction is estimated to be 60-65%. There are no focal wall motion abnormalities. Right Ventricle: The right ventricle is normal in size and function. Atria: The left atrium is mildly dilated. Right atrial size is normal. The interatrial septum is intact with no evidence for an atrial septal defect. Mitral Valve: The mitral valve is normal in structure and function. There is mild mitral annular calcification. There is trace mitral regurgitation. Aortic Valve: The aortic valve is trileaflet. The aortic valve is mildly calcified. Leaflet mobility is minimally reduced. There is no aortic valve stenosis. No aortic regurgitation is present. Tricuspid Valve: The tricuspid valve is normal in structure and function. There is trace tricuspid regurgitation. Pulmonic Valve: The pulmonic valve is normal in structure and function. There is trace pulmonic regurgitation. Great Vessels: The aortic root is normal size. The ascending aorta is mildly enlarged. The aortic arch is mildly enlarged. The pulmonary artery is normal size. The inferior vena cava was not visualized. Pericardium/ Pleura There is no pericardial effusion. There is no pleural effusion. MMode/2D Measurements & Calculations LVIDd: 4.5 cm LA dimension: 3.7 cm LVIDs: 2.6 cm FS: 42.3 % LA A2 area: 21.9 cm EPSS: 0.45 cm LA A4 area: 20.4 cm IVSd: 1.0 cm LA length (vol): 4.9 cm LVPWd: 0.79 cm LA vol: 77.7 ml LA vol index: 36.0 ml/m2 RA long axis: 4.4 cm LVOT diam: 2.4 cm RA area: 15.9 cm Ao root diam: 3.7 cm RA vol: 48.2 ml Aortic Jxn: 2.7 cm RA : 22.3 ml/m2 asc Aorta Diam: 3.5 cm Ao Arch Diam (Prox Trans): 3.4 cm LV moncada. diameter/BSA (cm/m^2): 2.1 LV sys. diameter/BSA (cm/m^2): 1.2 Doppler Measurements & Calculations Ao V2 max: 211.2 cm/sec MV E max conner: 110.8 cm/sec Ao max P.8 mmHg MV A max conner: 120.0 cm/sec Ao mean P.1 mmHg LVOT Max Conner: 119.6 cm/sec VANDANA(I,D): 2.7 cm sev ratio: 0.60 MV E/A: 0.92 TR max conner: 316.9 cm/sec Med Peak E' Conner: 5.5 cm/sec TR max P.2 mmHg E/E' med: 20.1 PA V2 max: 108.6 cm/sec Lat Peak E' Conner: 9.9 cm/sec PA mean P.8 mmHg E/E' lat: 11.2 PA Accel Time: 0.07 sec E/e' average: 15.7 Pulm A Revs Dur: 0.10 sec MV dec time: 0.16 sec Ao V2 mean: 142.3 cm/sec Ao V2 VTI: 33.1 cm VANDANA(V,D): 2.6 cm2 LV V1 max P.7 mmHg PA V2 mean: 80.5 cm/sec LV V1 VTI: 20.0 cm PA pr(Accel): 45.7 mmHg VANDANA indexed to BSA (cm^2/m^2): 1.3 Electronically signed by: Dr. Umer Duran on Reading Physician:05/08/2017 08:26 PM
[2017-05-08] MEDS: Total Parenteral Nutrition 1 BAG IV SCH (21:20)
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
[2017-05-09] MEDS ORDERED: Furosemide 10 mg/mL 2 mL Inj IVPUSH ONE (00:35)
[2017-05-09] MEDS: Piperacillin-Tazo 3.375 Gm Inj 3.375 GM in Dextrose 5% Minibag Plus 50 ML IV SCH ×3 (01:59→17:12)
[2017-05-09] MEDS: Sodium Chloride LOK Flush 10 mL Syringe IVFLUSH SCH ×3 (02:00→16:30)
--- NOTE | 2017-05-09 02:51 | NUR ---
Respirations Patient's respirations in the 30's. Hospitalist notified. Hospitalist recommended stopping TPN for now and giving a dose of IV Lasix. Other vitals stabl. Patient appears alert, but speech difficult to understand. Patient received One unit of PRBC's this shift. Care continues.
[2017-05-09 04:53] LABS: BASOPHILS % (AUTO) 0.4 % (0-3); EOSINOPHILS % (AUTO) 3.5 % (0-5); MONOCYTES % (AUTO) 7.4 % (4-12); Mean Corpuscular Hemoglobin 28.2 pg (27.0-35.0); Mean Corpuscular Volume 90.2 fL (81-100); NEUTROPHILS % (AUTO) 82.1 % (40-74); Platelet Count 477 bil/L (150-400)
[2017-05-09 05:35] LABS: Magnesium 2.1 mg/dL (1.6-2.6); Phosphorus 2.7 mg/dL (2.5-4.9)
[2017-05-09 05:58] VITALS: BP 157/87; PULSE 102; RESP 22; O2SAT 93
[2017-05-09 07:15] VITALS: PULSE 101; RESP 20; O2SAT 93
[2017-05-09] MEDS: TPN Per Pharmacist XX SCH (08:30)
--- NOTE | 2017-05-09 08:31 | PROG NOTE ---
[address] [address] PROGRESS NOTE PATIENT: JOSAFAT SOLIS : 1945 MR#: [id number] ADMIT: 04/21/2017 JOB ID: [id number] DATE: 05/09/2017 SUBJECTIVE: The patient is seen in followup. He is not complaining of abdominal pain today. He has no nausea. OBJECTIVE: Temperature 37.1, pulse 102, blood pressure 157/87, saturation 93% on room air. General, he is confused, resting in bed in no acute distress. Abdomen is mildly distended, but soft. There is no erythema of the abdominal wall. The colostomy has soft green stool in the appliance. Midline wound packing was changed. There is no evidence of enteric material on the gauze. Gauze packing was replaced, followed by Mepilex. LABORATORIES: White count is 14.1, hematocrit 28.5, platelets 477. Creatinine 0.52. Glucose 104. ASSESSMENT AND PLAN: A 71-year-old man status post Diallo's procedure for perforated diverticulitis with feculent peritonitis, with a long complicated postoperative course with ongoing encephalopathy. He does not have significant bowel obstruction despite his plain film appearance yesterday showing dilated loops of bowel, as he continues to have ongoing stool output and no vomiting. Recommend continuing wet-to-dry dressings to his midline wound. Review of his CAT scan reveals suspicion for possible dehiscence of his rectal stump with leakage, although this should be relatively clinically insignificant. I will continue to follow him periodically, but not every day.
[2017-05-09 10:00] VITALS: PULSE 99
--- NOTE | 2017-05-09 10:04 | PCM.PNMED ---
Subjective Date of Service May 09, 2017 Subjective Patient seen and examined today. Not very interactive. Labored breathing. Last night was tachypenic upto 30s, and was given lasix, TPN was stopped. Vitals noted Exam Vital Signs Vital Sign - Last Date Time Temp Pulse Resp B/P Pulse Ox O2 Delivery O2 Flow Rate FiO2 05/09/17 05:58 37.1 102 22 157/87 93 Room Air 05/05/17 21:37 2.00 Intake and Output 05/08/17 05/08/17 05/09/17 Cumulative From/Thru 15:00 23:00 07:00 04/21/17 10:44 - 05/09/17 06:37 Intake Total 2387 ml 331 ml 952 ml 82938 ml Output Total 620 ml 1600 ml 55870 ml Balance 2387 ml -289 ml -648 ml 14368 ml Intake Oral 0 ml 100 ml 4979 ml IV Total 935 ml 331 ml 242 ml 40986 ml TPN/PPN 1452 ml 260 ml 7540 ml Packed Cells 350 ml 951 ml Output Urine Total 600 ml 1450 ml 59755 ml Stool Total 150 ml 2230 ml Urine/Stool Mix 20 ml 20 ml Emesis 15 ml Drainage Total 5 ml # Voids 18 # Bowel Movements 0 Exam GENERAL: Awake not oriented. Mild to moderated distress EAR, NOSE, MOUTH, THROAT: Lips, oral mucosa, tongue gums, oropharynx are dry, pink, no lesions NECK: no jugulovenous distention; supple ROM normal. RESPIRATORY: Lungs clear to auscultation. Labored breathing. CARDIAC: normal S1 and S2; no rubs, murmurs, or gallops; regular rhythm ABDOMEN: Distended, stomy producing brown/greenish stool. EXTREMITIES: pitting edema in LE, no new deformities or skin discoloration. PULSES: 2+ radial, 2+ carotid Lab and Diagnostics Result Diagram: 05/09/1744405/09/17444 Microbiology Blood cultures pending X-Rays, CTs and MRIs . X-RAY CHEST ONE VIEW, PORTABLE IMPRESSION: No acute cardiopulmonary disease. Dictated by: Darius Molina M.D. on 04/21/2017 X-RAY PICC LINE PLACEMENT BY NURSE IMPRESSION: Tip of PICC lies within the lower superior vena cava. Dictated by: Darius Molina M.D. on 04/21/2017 CT ANGIO CHEST PULMONARY EMBOLISM IMPRESSION: 1. No large pulmonary emboli. Respiratory motion artifact limits evaluation for small emboli. 2. Mild bronchial wall thickening within the bilateral infrahilar regions ( left greater than right) may represent bronchitis. 3. New/Increasing right middle lobe ground glass nodules. A three-month followup CT of the chest is recommended with contrast. 4. No lymphadenopathy within the chest. 5. 1.3 cm hypodense left thyroid nodule. Please consider a thyroid ultrasound for further evaluation Dictated by: Tarik Roe M.D. on 04/21/2017 CT ABDOMEN AND PELVIS WITH CONTRAST IMPRESSION: 1. Interval postoperative changes of the bowel with a left lower quadrant colostomy. No bowel obstruction. 2. Mild ascites and moderate mesenteric edema probably is related to interval surgery. No drainable fluid collection or definable abscess is evident. 3. Mild prominence of the vieyra of multiple loops of bowel is nonspecific. However, this appearance may be related to colitis or enteritis and clinical correlation is recommended. 4. Fluid within the rectal stump probably is within normal limits. Other: -Absent right kidney and adrenal gland. -Cholelithiasis. -Hepatic steatosis. -Pancreatic lesion is not well evaluated on this exam. -Unusual appearance of an L1 compression fracture may be related to chronic sclerosis. However, a pathologic compression fracture related to metastatic lesion is difficult to exclude. Dictated by: Tarik Roe M.D. on 04/21/2017 Additional Diagnostics DateTimeAnalyzed 14:02:00 -_ pH ____7.474 - 7.350 7.450 pCO2 ___27.7__ -mmHg 35.0 45.0 pO2 107 -mmHg 69.0 116 HCO3- ___20.1__ -mmol/L 22.0 26.0 ABE ___-2.7__ -mmol/L -2.0 2.0 tHb ____7.0__ -g/dL 12.0 18.0 O2Hb ___96.2__ -% COHb ____1.6__ -% 0.0 1.5 MetHb ____0.5__ -% 0.4 1.5 sO2 ___98.3__ -% 25.0 FIO2 ___32.0__ -% Drawn By as - Date/Time Notified____ 14:08:00 -_ Spontaneous_RR ___26.0__ -b/min Liter_Flow ____3.0__ -L/min Oxygen Device 1 __CANNULA - Notified By AMS - Notified Whom DR OKELLY - B 756 -mmHg tO2 ____9.7__ -Vol% Lion test _Positive - Assessment & Plan Patient is a 71-year-old male with a recent history of partial colectomy secondary to intra-abdominal abscess, diverticular disease presented to ED with syncopal episode , was diagnosed with septic shock, intrabdominal infection. ID and surgery were consulted. Patient was treated with IV antibiotics, IVF. He is malnurished and is on TPN until his oral intake improves. Patient finished antibiotics. Acute intraabdominal inflammation and infection. ielus Transaminitis, present on admission and active - recent ruptured diverticular s/p sigmoid colectomy and colostomy (03/24-04/19) on previous admission - Wound VAC taken out due to concerns for fistula, assessed by surgery : no fistula , continue dressing as directed - Cultures, viral PCR have been negative thus far. - Infectious Disease Dr. Lozoya evaluated the patient, abx stopped earlier. However, patient spiked fevers yesterday, with pct trending up, was restarted on zosyn and micafungin -Ultrasound of the abdomen 04/07/2017 (last admission) shows a prominent gallbladder (4.2 mm), HIDA scan & MRCP 04/05 clear -HIDA scan obtained on 04/05 shows no evidence of acute cholecystitis. Results as above -IR recommends no additional imaging studies at this point - TPN stopped last night due to labored breathing and tachypnea, will get CXR - without nutrition via TPN, patient's recovery will be minimal to none -Surgery on board Plan - continue dressings - continue abx zosyn,micafungin Dehydration - patient's intravascular blood volume is low due to low proteins, hence pulmonary congestion and peripheral edema is expected without proper nutrition - albumin initially helped improve bun , will not see elevation in cr in setting of ej as patient's nutrition status is poor - HR didnt improve with albumin + fluids, restarted on diltiazem , llikely due to underlying infection -tpn held due to tachypnia last night, will give albumin one time today to help get rid of extra fluids from extravascular space Sinus tachycardia - likely 2/2 to multiple etiologies contributing : malnutrition associated low intravascular volume, anemia , underlying infection - considering patient's cardiac history, will control HR actively Normocytic anemia - tranfuse blood if hgb <8.0, h/o cardiac condition - Hgb trended down yesterday, was transfused - HR did not improve after that Severe protein malnutrition - stable, improving slowly -2nd to recent major surgery, poor po intake - patient failed swallow eval, will not fluorscopic eval tomorrow Plan -NPO for now - c/w TPN once respiratory status improves - IV Albumin as needed Septic shock, present on admission - resolved. - lactic acid was 7.8, tachypneic, tachycardic, leukocytosis with presumed source of abdominal infection, and AMS requiring brief pressor support. -Possible gallbladder disease given enlargement with stones with elevated LFT , HIDA positive for reduce ejection fraction system with chronic cholecystitis. -No intervention per IR/surgery Toxic Encephalopathy -wax-wane mentation , underlying dementia seems like Plan - d/c Seroquel - monitor COPD - stable -O2 support as needed -Duoneb prn , no changes. Coronary artery disease, chronic. History of prior PR requiring two stents. Elevated troponins - stable. -EKG showed sinus tachycardia with an old inferior infarct Plan -Hold home statins, BP meds Renal cell carcinoma of right kidney, chronic. Presumed stable. -Pt is s/p nephrectomy in October 2016, previously treated with Pazopanib and dexamethasone. -Per recommendations of oncology from prior admission Pazopanib and dexamethasone may be held for 4-6 weeks while patient stabilizes. -CT abd/pelvis renal cyst as above -Hold home meds -Follow up with Oncology as outpatient in 1-2 weeks to deterimine when to resume Pazopanib and dexamethasone. Respiratory alkalosis with metabolic acidosis. - resolved. Essential Hypertension - BP is stable - hold BP meds Diabetes mellitus, type 2 - stable DVT PROPHYLAXIS: Lovenox Code status: DNR/DNI per patient wishes. Disposition: discharge to facility after patient improves. Patient's condition is deteriorating, or not improving generally. His nutrition status is poor at this point. Will discuss with family and possibly get palliative care involved to address his wishes. GI Prophylaxis: H2 saw VTE Prophylaxis: Sub-Q Enoxaparin VTE Mechanical Devices: Intermittant Pneumatic CD Resuscitation Status: DNR/DNI:Do Not Resuscitate/Intubate Time spent 35 mins Loyd Sage MD May 09, 2017 10:04
[2017-05-09] MEDS ORDERED: Albumin 25% 50 GM in IV Premix 1 EACH IV ONE (10:05)
--- NOTE | 2017-05-09 10:26 | NUR ---
Inpatient Wound and Ostomy Nurse Patient seen for abdominal wound care and ostomy system change. Abdominal wound beefy red and granulating. Edges well adhered, no foul odor or residue on removed gauze. Distal tunnel feels tighter and narrowing the farther the Q tip is inserted. Base of proximal tunnel appears spider-webby and without firm base. Wound was cleansed, blotted dry, then packed with sterile gauze saturated with NS and covered with bordered 4x4 Mepilex dressing. Stoma is pink and continues retracted on medial plane. The two pressure ulcers previously noted in peristomal skin have healed. A small piece of stoma paste was applied over healed open area to prevent recurrence. A light scattering of moisture-associated fungal rash is noted, which is likely attributed to fevers, sweats and hydrocolloid base of Coloplast wafer. Although the hydrocolloid is better for skin breakdown, patient may be accumulating moisture in this area. A very light dusting of stomal powder was applied and then flat Coloplast wafer applied without challenge. Pouch adhered to wafer. Mushy, applesauce consistency dark green stool noted in pouch. CWON RN will continue Monday-Monday ostomy system changes. CWON RN will provide the Monday through Monday a.m. dressing change for BID dressing changes to abdominal incision.
--- NOTE | 2017-05-09 12:23 | PCM.PALLBR ---
Palliative Care Recommendation Summary of palliative recommendations: -Symptom management (Pain/other) Delirium Persistent ileus versus SBO. This is complicated again by his narcotics for pain management Progressive weakness-his believes he is getting weaker and not stronger. Now prolonged hospitalization. FCTM today: family reports having discussed the situation thoroughly based on their meeting with Dr. Eng. They express the desire to care for the patient at home with hospice support. In light of this, we have discontinued: 1) lovenox. 2) diagnostic imaging 3) blood sugar checks, guiac, tele 4) Continue albumin and antibiotics until confirming with ID, possibly until DC Palliative Care has contacted family, offered hospice. Family choosing to meet with [facility] team--info meeting 10 am on 05/10. 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 His reiterates DO NOT RESUSCITATE status. --Expect to meet with family this afternoon or tomorrow to complete POLST -Family/emotional support-family are now together in the plan of home care with hospice. Hospice will provide ongoing family support. Additional Medical Diagnoses with primary management by Hospitalist team include : Problems: End of Life Preferences DO NOT RESUSCITATE Goals of Care At this point profound debility and deconditioning. His is concerned that even at [facility] she would not get as intense regime is at rehabilitation Disposition Yet to be determined-- at a minimum would need to go to [facility]CF Resuscitation Status Resuscitation Status: DNR/DNI:Do Not Resuscitate/Intubate POLST Updates/Changes Previous POLST?: No POLST Discussed with: Spouse/Other . Advanced Care Planning Address: POLST Pain: Mild Symptom management: Nausea, Anxiety, Drowsiness/sleepiness, Constipation Total time 40 minutes; >50% face to face with patient and/or family, providing counselling regarding plans and recommendations, and in care coordination with his/her medical teams. copies to: Vik Sagastume MD Palliative Brief Note Date of Service May 09, 2017 . Family met with team this morning and announced that they have decided to take the patient home with hospice support. The medical team agrees that the patient is appropriate for hospice based on his condition and his likelihood of progressing to end of life over the next few weeks to months. The family is planning to come back this afternoon to complete the POLST form; at that time we will review the transition plan of care for hospice. During the morning visit, reviewed with RN the current plan, making adjustments to reflect the change in goals. We will continue albumin and antibiotics until discharge, but DC lovenox, DC imaging/ daignostic testing (chest ZR), DC invasive or unnecessary nursing care such as blood sugar checks, guiac, telemetry and q 4 hour vitals. Vitals are adjusted to twice daily with no BP except 2-4 hours prior to DC to ensure that patient is stable enough to tolerate discharge transfer. In addition, an order to not wake patient for care or vitals has been placed. Azeem Perry May 09, 2017 11:40 Azeem Perry May 09, 2017 11:40
[2017-05-09] MEDS: 0.9% Sodium Chloride 250 ML IV SCH ×2 (12:37→18:00)
[2017-05-09] MEDS ORDERED: 0.9% Sodium Chloride 100 ML ONE (12:42)
--- NOTE | 2017-05-09 13:18 | NUR ---
Palliative care note D/A: Phone call this am from troy Aquino who indicates that pt spouse and son have made a decision for a hospice info visit. Azeem LYNN, kindly writes order for Hospice consult. Attempt to meet with pt spouse and son in room but they have left. Phone call to pt spouse Augustina at [phone] and discuss desire for hospice consult with her. She indicates that pt will remain at home in [place]. Discuss Hospice Services list with her and she chooses [facility]. Discuss her availability for info visit. Left a msg for [facility]. Case discussed with troy Aquino as well as Azeem LYNN and will inform them in regards to timing of info visit. P: Palliative care to follow. Michelle CARDENAS CCM Addendum: 05/10/17 at 1008 by LINDY SCHMIDT PC amendment note (late note entered on 05/10/17 for 05/09/17) D/A: Arranged for 1000 [facility] info visit for today, via discussion with Amarilys. Informed Zohra and PC provider and also called pt spouse to confirm. She will meet [facility] in the pt room. P: Palliative care to follow. Michelle CARDENAS CCM
[2017-05-09] MEDS: Micafungin Inj 100 MG in 0.9% Sodium Chloride 100 ML IV SCH (16:27)
--- NOTE | 2017-05-09 17:26 | NUR ---
Social Work- Continued D/C Planning/Multidisciplinary Rounds Data: EMR reviewed. Pt is on day 18 of hospitalization. Pt discussed in bedside multidisciplinary rounds, pt's family have made the decision to take pt home and transition him to hospice services. Hospice order received. Pt's son and are agreeable to hospice informational visit, discussed this with Michelle [facility] [employer], who completed [facility] Notified that infovisit will occur tomorrow morning at 10 am. SW to notify Haley Rushford of plan of care tomorrow morning. SW will continue to follow. Assessment: Pt for whom hospice is the determined plan of care. Plan: [facility] Hospice infovisit to occur tomorrow morning 10 am. SW to notify Haley Rushford of plan of care tomorrow morning. SW will continue to follow. CUCA Coyle
--- NOTE | 2017-05-09 18:31 | PROG NOTE ---
[address] [address] PROGRESS NOTE PATIENT: JOSAFAT SOLIS : 1945 MR#: [id number] ADMIT: 04/21/2017 JOB ID: [id number] INFECTIOUS DISEASE FOLLOWUP: DATE: 05/09/2017 REASON FOR FOLLOWUP: Possible intra-abdominal infection in a patient who has undergone extensive abdominal surgery and is having issues still with bowel motility, nutrition and progressive debility. INTERVAL HISTORY: Over the past 24 hours, the patient has continued to deteriorate and there has been more discussions regarding hospice. He has had an extraordinarily long series of hospital stays and is still failing to improve. For his part, the patient remains awake and able to answer some questions but is clearly confused at times. Today, he was expressing the idea that he should be transferred to the hospital and did not seem to realize he was once again back in the hospital. Surprisingly, he denies almost all complaints and states he is not short of breath though he obviously is short of breath. He likewise denies abdominal pain or any other new symptoms. The nursing staff reports that his p.o. intake is very low and his TPN has now been stopped. There are active discussions about transition to hospice. PHYSICAL EXAMINATION: Reveals an afebrile gentleman, temp 37.1, but he was 38.8 yesterday and that constitutes the highest fever he has had during this entire readmission which now dates back to 19 days. His pulse is currently 99, respiratory rate about 20, blood pressure 157/87, saturating well on room air. Mental status reveals he is a only really oriented x1 though we can answer some questions appropriately. He is not aware of the place or time. Eyes without new changes. Mucous membranes are notable for pooled secretions in the pharynx. His lungs are relatively congested. He has upper airway rattles as well as some rales and rhonchi at the bases. Cardiac tones without new murmur. Abdomen is distended but almost pain free, even with deep palpation. The right side of the abdomen seems more firm than it had previously, but again it is not tender. He has a colostomy which seems to be functioning though low output, and dressings are applied to the infraumbilical wound. His extremities are notable for peripheral edema but primarily just around the ankles. No new cellulitis is noted. LABORATORY STUDIES: Include a white count which is essentially constant at 14,000, 82% segs. His creatinine 0.52. Procalcitonin 0.52. Micro studies include negative fungal blood cultures from yesterday. IMAGING: Includes an abdominal x-ray done yesterday which shows possible persistent small-bowel obstruction. IMPRESSION: This patient seems to be slowly failing. Recall that he had a ruptured viscus many weeks ago which was repaired and had a prolonged convalescence. He was then briefly discharged only to be readmitted with more right-sided abdominal pain. Workup has so far been essentially nonrevealing, though he does have evidence of some possible partial small-bowel obstruction but he does continue to have output through his colostomy so it is obviously not severe bowel obstruction. Whether or not he has an ongoing infection is unclear. We do not have any positive cultures or definitive evidence of abscess formation but it is worrisome that he has had a leukocytosis as well as increasing right-sided abdominal pain. He has been placed on Zosyn and micafungin for broad-spectrum coverage as we await further developments. At this point, the nurses report that two of his PICC lumens are not working well and I wonder if the PICC could serve as a source of his fever which occurred yesterday evening. It is also possible, of course, his fevers are due to something going on in his abdomen or even a drug reaction. Note that there are plans to consider transition to hospice as early as tomorrow. RECOMMENDATIONS: 1. I would continue with micafungin and Zosyn for the time being. 2. If we were to continue aggressive care with this patient, I would consider removing his PICC line and culturing the tip to see whether this may be the source of his recent fever spikes. 3. If he does transition to hospice, I would simply stop all antibiotics as part of the transition and not perform any other investigations.
--- NOTE | 2017-05-09 18:45 | NUR ---
Activity Patient up to side of bed with PT. Tele DC'd. Denied pain and nausea this shift. Patient Q2 turn. Dressing CDI. Call light and tray table within reach. Will continue to monitor patient hourly.
[2017-05-09 20:00] VITALS: BP 143/89; PULSE 83; RESP 28; O2SAT 90
[2017-05-10] MEDS: Sodium Chloride LOK Flush 10 mL Syringe IVFLUSH SCH ×4 (00:27→21:13)
[2017-05-10] MEDS: Piperacillin-Tazo 3.375 Gm Inj 3.375 GM in Dextrose 5% Minibag Plus 50 ML IV SCH ×3 (00:27→16:30)
--- NOTE | 2017-05-10 04:20 | NUR ---
Care Activity Patient positioned with pillows to maintain comfort and to prevent PU. It was noted that patterson was not producing a drop of urine. Patient reported that he felt like he needed to urinate. Upon further investigation, it was apparent that urine was leaking around the tube into his brief. Balloon was deflated and immediately patient released a moderate amount of urine into his brief. Patterson was then removed and patient refused to have it replaced. Patient was also at this time found to be saturated in mucous like fluid coming from his anus which required an entire bed change. Patient was slightly agitated with being turned for cleaning. Patient explained that we want to maintain his level of comfort which requires him to remain dry and clean. Will have treatment team re-address this issue with him and the family in the morning.
[2017-05-10] MEDS: 0.9% Sodium Chloride 250 ML IV SCH ×2 (08:52→18:00)
--- NOTE | 2017-05-10 10:01 | PROG NOTE ---
[address] [address] PROGRESS NOTE PATIENT: JOSAFAT SOLIS : 1945 MR#: [id number] ADMIT: 04/21/2017 JOB ID: [id number] DATE: 05/10/2017 REASON FOR FOLLOWUP: Complicated intra-abdominal infection. INTERVAL HISTORY: Overnight, there were some issues. The patient was having trouble urinating and it turned out that his Dallas was malpositioned. It was subsequently pulled and released some urine, and then declined to have a new Dallas placed. He also had some mucus-like discharge around his anus which was new. No fevers or chills that the patient reports. He says he is not short of breath and denies abdominal pain. PHYSICAL EXAM: Reveals a tired-appearing, elderly gentleman, lying in bed. Temp 36.9, pulse 83, respiratory rate in the 20s, blood pressure 143/89. He is saturating 90% on 2 L. He appears mildly short of breath but denies that he is. Eyes without conjunctivitis. Lungs with a few crackles at both bases. Abdomen relatively soft, nontender. Colostomy is present. Right-sided abdominal fullness is appreciated again, but that area is nontender, and has also a wound which is dressed below the umbilicus. No skin rash noted. LABORATORIES: Include a creatinine of 0.64 today which slightly up. We do not have any white count since yesterday's 14,000. No new cultures are available. IMPRESSION: This is an unfortunate patient who was admitted to this facility back on March 24 with perforated viscus, requiring colostomy and surgery, with a prolonged hospital stay. He was finally discharged, only to be readmitted after just a very brief time as an outpatient. Upon readmission, he had increased right-sided abdominal pain and some evidence of infection, though it was not proven. He seems to have responded to broad-spectrum antibiotics, but unfortunately, his condition continues to be poor overall. His own nutritional status is quite poor. He was recently on TPN which has now been discontinued. Additionally, he continues to be bed ridden and profoundly debilitated. RECOMMENDATIONS: 1. Will continue with current antibiotics which include Zosyn and micafungin for the time being. 2. If the patient has any additional fevers, and recall he did have some fevers which are unexplained from two days ago, I would consider removal of the PICC line with culture of the tip. 3. I understand the patient may be transitioning to hospice or comfort care, and we await additional input with respect to these developments.
--- NOTE | 2017-05-10 11:04 | NUR ---
Inpatient Wound Nurse Patient seen for abdominal wound care. Abdominal wound beefy red and granulating. Removed gauze saturated with pale yellow drainage, non-odorous. Bordered 4x4 Mepilex saturated. Measurements todayare 6 cm L x 3.5 cm W. Distal tunnel is increaseded at 7 cm D. Proximal tunnel is unchanged at 3.5 cm D. Wound was cleansed, blotted dry, then packed with sterile gauze saturated with NS and covered with bordered 4x4 Mepilex dressing. CWON RN will see patient tomorrow for wound care and continue Monday-Monday ostomy system changes. CWON RN will provide the Monday through Monday a.m. dressing change for BID dressing changes to abdominal incision.
[2017-05-10 11:38] VITALS: PULSE 107; RESP 36; O2SAT 89
--- NOTE | 2017-05-10 11:39 | NUR ---
NUTRITION FOLLOW-UP: ASSESS: 71 YO male admitted with severe sepsis. Pt was recently discharged from [facility] with abdominal abscess secondary to ruptured diverticula requiring sigmoid colectomy and colostomy, now with intraabdominal infection. Wound Vac was removed 05/02 due to concern for fistula, surgery is following. No signs of fistula at this time. Pt continues with pureed diet ordered but continues to only eat bites of food. TPN was stopped 05/08 as pt was having difficulty breathing and there was concern that pt was fluid overloaded. Palliative care is involved and hospice information visit has been set up with family. PMHx: CAD, COPD, renal cell carcinoma of right kidney s/p nephrectomy in October 2016, type II diabetes, HTN, dyslipidemia, heartburn, hiatal hernia, GI bleed, sigmoid colectomy with descending colostomy 03/24/2017. DIET: Pureed, nectar thick liquids. PO intake bites TPN: stopped 05/08 LABS: Reviewed. Na 145, ledger clerk .64, glu 101, Ca 8.4, TG 185 MEDICATIONS: Reviewed. Senna. GI: Stool via colostomy. SKIN: Abdominal wound. Two pressure ulcers are noted in peristomal skin. ANTHROPOMETRICS: Current Wt: 90 kg, BMI: 25.5kg/m2, admit wt 80.5 kg, IBW: 86.3 kg, UBW: 92 kg, 6.5% wt loss x 1 month. ESTIMATED NEEDS (malnutrition, wounds): Calories: 3556-4838 kcal/day (25-30 kcal/kg BW) Protein: 105-130 g/day (1.2-1.5 g/kg BW) Fluids: ~7285-0102 ml/day (25-30 ml/kg) NUTRITION DIAGNOSIS: 1) Inadequate oral intake related altered GI function / ileus as evidenced by minimal PO intake- PERSISTS. 2) Severe pro/kcal malnutrition in the context of acute illness as evidence by altered gi function as evidence by PO intake of <50% of estimated energy requirements for >5days, 6.5% wt loss x1 month - PERSISTS. INTERVENTION: 1) Diet per ST. 2) Continue to encourage PO intake. PO intake alone without TPN is not adequate to meet nutritional needs. MONITOR/EVALUATE: PO intake, POC, palliative care, GI status, labs, weight, and nutrition status. Follow up per high nutrition risk guidelines.
--- NOTE | 2017-05-10 11:45 | PCM.PALLBR ---
Palliative Care Recommendation This is a 71-year-old male patient with complicated history of intra-abdominal abscess secondary to perforated diverticulum requiring partial colectomy and a prolonged hospital stay. He was previously discharged only to return within 36 hours because of altered mental status diagnosis of sepsis. septic shock and acute DE. He has needed TPN, has completed his antibiotic courses but continues to be profoundly debilitated and weak. He has had persistent ileus versus SBO. He initially failed his swallow evaluation; he is now able to eat and drink with modifications for safety but we will lift these per his requests to allow for him to have what he wants. Summary of palliative recommendations: -Symptom management: Pain: patient has not been complaining of pain, but this may change. discussed appropriate interventions with RN and family --oxycodone liquid 2.5-5 mg po q 3 hr prn Persistent ileus versus SBO. This is complicated again by his narcotics for pain management --goals changing will leave options to use minimal opioids again. Progressive weakness-his believes he is getting weaker and not stronger. Now prolonged hospitalization. --DMW per hospice FCTM today: family reports understanding of illness and prognosis, yet were still confused about role of artificial feeding. After confirming goals Palliative Care has clarified plan re: no PEG and hospice in home. HNW has seen family and will arrange home admission to hospice. In light of this, we have discontinued: 1) lovenox. 2) diagnostic imaging 3) blood sugar checks, guiac, tele 4) all antibiotics and blood products including albumin. See modified diet with additional orders that he can have fluids without thickening if requested. 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 His reiterates DO NOT RESUSCITATE status. --POLST completed: DNR/DNI, comfort only, no antibiotics, no artificial feeding. -Family/emotional support-family are now together in the plan of home care with hospice. Hospice will provide ongoing family support. Additional Medical Diagnoses with primary management by Hospitalist team include : Acute intraabdominal inflammation and infection. ielus Transaminitis, present on admission and active - recent ruptured diverticular s/p sigmoid colectomy and colostomy (03/24-04/19) on previous admission - Wound VAC taken out due to concerns for fistula, assessed by surgery : no fistula , continue dressing as directed - Cultures, viral PCR have been negative thus far. - Infectious Disease Dr. Lozoya evaluated the patient, abx stopped earlier. However, patient spiked fevers yesterday, with pct trending up, was restarted on zosyn and micafungin -Ultrasound of the abdomen 04/07/2017 (last admission) shows a prominent gallbladder (4.2 mm), HIDA scan & MRCP 04/05 clear -HIDA scan obtained on 04/05 shows no evidence of acute cholecystitis. Results as above -IR recommends no additional imaging studies at this point - TPN stopped last night due to labored breathing and tachypnea, will get CXR - without nutrition via TPN, patient's recovery will be minimal to none -Surgery on board Plan - continue dressings - continue abx zosyn,micafungin - Pt made official comfort care after meeting with Hospice and Palliative on . No further workup for medical issues beyond symptomatic management. Dehydration - patient's intravascular blood volume is low due to low proteins, hence pulmonary congestion and peripheral edema is expected without proper nutrition - albumin initially helped improve bun , will not see elevation in cr in setting of ej as patient's nutrition status is poor - HR didnt improve with albumin + fluids, restarted on diltiazem , llikely due to underlying infection -tpn held due to tachypnia last night, will give albumin one time today to help get rid of extra fluids from extravascular space - Pt made official comfort care after meeting with Hospice and Palliative on . No further workup for medical issues beyond symptomatic management. Sinus tachycardia - likely 2/2 to multiple etiologies contributing : malnutrition associated low intravascular volume, anemia , underlying infection - considering patient's cardiac history, will control HR actively - Pt made official comfort care after meeting with Hospice and Palliative on . No further workup for medical issues beyond symptomatic management. Normocytic anemia, chronic. - tranfuse blood if hgb <8.0, h/o cardiac condition - Hgb trended down yesterday, was transfused - HR did not improve after that Severe protein malnutrition, chronic. - stable, improving slowly -2nd to recent major surgery, poor po intake - patient failed swallow eval, will not fluorscopic eval tomorrow Plan -NPO for now - c/w TPN once respiratory status improves - IV Albumin as needed Septic shock, present on admission - resolved. - lactic acid was 7.8, tachypneic, tachycardic, leukocytosis with presumed source of abdominal infection, and AMS requiring brief pressor support. -Possible gallbladder disease given enlargement with stones with elevated LFT , HIDA positive for reduce ejection fraction system with chronic cholecystitis. -No intervention per IR/surgery Pt made official comfort care after meeting with Hospice and Palliative on . No further workup for medical issues beyond symptomatic management. Toxic Encephalopathy -wax-wane mentation , underlying dementia seems like Plan - d/c Seroquel - monitor - Pt made official comfort care after meeting with Hospice and Palliative on . No further workup for medical issues beyond symptomatic management. COPD - stable -O2 support as needed -Duoneb prn , no changes. Coronary artery disease, chronic. History of prior DE requiring two stents. Elevated troponins - stable. -EKG showed sinus tachycardia with an old inferior infarct Plan -Hold home statins, BP meds Renal cell carcinoma of right kidney, chronic. Presumed stable. -Pt is s/p nephrectomy in October 2016, previously treated with Pazopanib and dexamethasone. -Per recommendations of oncology from prior admission Pazopanib and dexamethasone may be held for 4-6 weeks while patient stabilizes. -CT abd/pelvis renal cyst as above -Hold home meds -Follow up with Oncology as outpatient in 1-2 weeks to deterimine when to resume Pazopanib and dexamethasone. Respiratory alkalosis with metabolic acidosis. - resolved. Essential Hypertension - BP is stable - hold BP meds Diabetes mellitus, type 2 - stable Problems: End of Life Preferences Home care with hospice providing comfort measures Goals of Care At this point, the patient and family agree that he does not want aggressive care to try to recover from his profound debility and deconditioning, but rather chooses to be home with family. Disposition home with hospice Resuscitation Status Resuscitation Status: DNR/DNI:Do Not Resuscitate/Intubate POLST Updates/Changes Previous POLST?: No Antibiotics: No Antibiotics Artificially Admin Nutrition: No Artifical Nutrition by Tube POLST Discussed with: Health Care Agent (DPOAHC), Spouse/Other POLST Review Outcome: New Form Completed . Advanced Care Planning Address: POLST Total time 45 minutes; >50% face to face with patient and/or family, providing counselling regarding plans and recommendations, and in care coordination with his/her medical teams. Of this 30 minutes is spent counseling for advanced care planning, completing a POLST form with the patient/the patients family/the surrogate decision maker. copies to: Vik Sagastume MD Palliative Brief Note Date of Service May 10, 2017 . POLST completed, clarified with family no PEG desired. They are relieved to know that this is not being done; they had understood it to be a recommendation of the medical team and did not realize it was no longer part of the plan when they opted for comfort. Awaiting word from hospice regarding DC preparations. Checked with nursing who reports no needs at this time. He has not complained of pain but the states he has used percocet with good relief in the past--he used only 1/2 tab, occasionally a full one at HS. Will order oxycodone liquid in light of limited swallow. Azeem Perry May 10, 2017 11:45
--- NOTE | 2017-05-10 13:06 | PCM.PNMED ---
Subjective Date of Service May 10, 2017 Subjective Pt made official comfort care today after meeting with Hospice and Palliative on 05/10/17 Exam Vital Signs Vital Sign - Last Date Time Temp Pulse Resp B/P Pulse Ox O2 Delivery O2 Flow Rate FiO2 05/10/17 11:38 36.8 107 36 89 Room Air 05/09/17 20:00 2.00 93 Intake and Output 05/09/17 05/09/17 05/10/17 Cumulative From/Thru 15:00 23:00 07:00 04/21/17 10:44 - 05/10/17 04:58 Intake Total 409 ml 210 ml 72656 ml Output Total 300 ml 04834 ml Balance 109 ml 210 ml 40758 ml Intake Oral 0 ml 4979 ml IV Total 409 ml 210 ml 51745 ml TPN/PPN 7540 ml Packed Cells 951 ml Output Urine Total 300 ml 50685 ml Stool Total 2230 ml Urine/Stool Mix 20 ml Emesis 15 ml Drainage Total 5 ml # Voids 18 # Bowel Movements 0 Exam GENERAL: Awake not oriented. Mild to moderated distress EAR, NOSE, MOUTH, THROAT: Lips, oral mucosa, tongue gums, oropharynx are dry, pink, no lesions NECK: no jugulovenous distention; supple ROM normal. RESPIRATORY: Lungs clear to auscultation. Labored breathing. CARDIAC: normal S1 and S2; no rubs, murmurs, or gallops; regular rhythm ABDOMEN: Distended, ostomy producing brown/greenish stool. EXTREMITIES: pitting edema in LE, no new deformities or skin discoloration. PULSES: 2+ radial, 2+ carotid IVs and Medications Medications Reviewed: Medications were reviewed in detail Lab and Diagnostics Result Diagram: 05/09/17 0445 05/10/17 0615 Microbiology Blood cultures pending X-Rays, CTs and MRIs . X-RAY CHEST ONE VIEW, PORTABLE IMPRESSION: No acute cardiopulmonary disease. Dictated by: Darius Molina M.D. on 04/21/2017 X-RAY PICC LINE PLACEMENT BY NURSE IMPRESSION: Tip of PICC lies within the lower superior vena cava. Dictated by: Darius Molina M.D. on 04/21/2017 CT ANGIO CHEST PULMONARY EMBOLISM IMPRESSION: 1. No large pulmonary emboli. Respiratory motion artifact limits evaluation for small emboli. 2. Mild bronchial wall thickening within the bilateral infrahilar regions ( left greater than right) may represent bronchitis. 3. New/Increasing right middle lobe ground glass nodules. A three-month followup CT of the chest is recommended with contrast. 4. No lymphadenopathy within the chest. 5. 1.3 cm hypodense left thyroid nodule. Please consider a thyroid ultrasound for further evaluation Dictated by: Tarik Roe M.D. on 04/21/2017 CT ABDOMEN AND PELVIS WITH CONTRAST IMPRESSION: 1. Interval postoperative changes of the bowel with a left lower quadrant colostomy. No bowel obstruction. 2. Mild ascites and moderate mesenteric edema probably is related to interval surgery. No drainable fluid collection or definable abscess is evident. 3. Mild prominence of the vieyra of multiple loops of bowel is nonspecific. However, this appearance may be related to colitis or enteritis and clinical correlation is recommended. 4. Fluid within the rectal stump probably is within normal limits. Other: -Absent right kidney and adrenal gland. -Cholelithiasis. -Hepatic steatosis. -Pancreatic lesion is not well evaluated on this exam. -Unusual appearance of an L1 compression fracture may be related to chronic sclerosis. However, a pathologic compression fracture related to metastatic lesion is difficult to exclude. Dictated by: Tarik Roe M.D. on 04/21/2017 Additional Diagnostics DateTimeAnalyzed 14:02:00 -_ pH ____7.474 - 7.350 7.450 pCO2 ___27.7__ -mmHg 35.0 45.0 pO2 107 -mmHg 69.0 116 HCO3- ___20.1__ -mmol/L 22.0 26.0 ABE ___-2.7__ -mmol/L -2.0 2.0 tHb ____7.0__ -g/dL 12.0 18.0 O2Hb ___96.2__ -% COHb ____1.6__ -% 0.0 1.5 MetHb ____0.5__ -% 0.4 1.5 sO2 ___98.3__ -% 25.0 FIO2 ___32.0__ -% Drawn By as - Date/Time Notified____ 14:08:00 -_ Spontaneous_RR ___26.0__ -b/min Liter_Flow ____3.0__ -L/min Oxygen Device 1 __CANNULA - Notified By AMS - Notified Whom DR OKELLY - B 756 -mmHg tO2 ____9.7__ -Vol% Lion test _Positive - Assessment & Plan Patient is a 71-year-old male with a recent history of partial colectomy secondary to intra-abdominal abscess, diverticular disease presented to ED with syncopal episode , was diagnosed with septic shock, intrabdominal infection. ID and surgery were consulted. Patient was treated with IV antibiotics, IVF. He is malnurished and is on TPN until his oral intake improves. Pt made official comfort care after meeting with Hospice and Palliative on 05/10/17. No further workup for medical issues beyond symptomatic management. Acute intraabdominal inflammation and infection. ielus Transaminitis, present on admission and active - recent ruptured diverticular s/p sigmoid colectomy and colostomy (03/24-04/19) on previous admission - Wound VAC taken out due to concerns for fistula, assessed by surgery : no fistula , continue dressing as directed - Cultures, viral PCR have been negative thus far. - Infectious Disease Dr. Lozoya evaluated the patient, abx stopped earlier. However, patient spiked fevers yesterday, with pct trending up, was restarted on zosyn and micafungin -Ultrasound of the abdomen 04/07/2017 (last admission) shows a prominent gallbladder (4.2 mm), HIDA scan & MRCP 04/05 clear -HIDA scan obtained on 04/05 shows no evidence of acute cholecystitis. Results as above -IR recommends no additional imaging studies at this point - TPN stopped last night due to labored breathing and tachypnea, will get CXR - without nutrition via TPN, patient's recovery will be minimal to none -Surgery on board Plan - continue dressings - continue abx zosyn,micafungin - Pt made official comfort care after meeting with Hospice and Palliative on . No further workup for medical issues beyond symptomatic management. Dehydration - patient's intravascular blood volume is low due to low proteins, hence pulmonary congestion and peripheral edema is expected without proper nutrition - albumin initially helped improve bun , will not see elevation in cr in setting of ej as patient's nutrition status is poor - HR didnt improve with albumin + fluids, restarted on diltiazem , llikely due to underlying infection -tpn held due to tachypnia last night, will give albumin one time today to help get rid of extra fluids from extravascular space - Pt made official comfort care after meeting with Hospice and Palliative on . No further workup for medical issues beyond symptomatic management. Sinus tachycardia - likely 2/2 to multiple etiologies contributing : malnutrition associated low intravascular volume, anemia , underlying infection - considering patient's cardiac history, will control HR actively - Pt made official comfort care after meeting with Hospice and Palliative on . No further workup for medical issues beyond symptomatic management. Normocytic anemia, chronic. - tranfuse blood if hgb <8.0, h/o cardiac condition - Hgb trended down yesterday, was transfused - HR did not improve after that Severe protein malnutrition, chronic. - stable, improving slowly -2nd to recent major surgery, poor po intake - patient failed swallow eval, will not fluorscopic eval tomorrow Plan -NPO for now - c/w TPN once respiratory status improves - IV Albumin as needed Septic shock, present on admission - resolved. - lactic acid was 7.8, tachypneic, tachycardic, leukocytosis with presumed source of abdominal infection, and AMS requiring brief pressor support. -Possible gallbladder disease given enlargement with stones with elevated LFT , HIDA positive for reduce ejection fraction system with chronic cholecystitis. -No intervention per IR/surgery Pt made official comfort care after meeting with Hospice and Palliative on . No further workup for medical issues beyond symptomatic management. Toxic Encephalopathy -wax-wane mentation , underlying dementia seems like Plan - d/c Seroquel - monitor - Pt made official comfort care after meeting with Hospice and Palliative on . No further workup for medical issues beyond symptomatic management. COPD - stable -O2 support as needed -Duoneb prn , no changes. Coronary artery disease, chronic. History of prior DC requiring two stents. Elevated troponins - stable. -EKG showed sinus tachycardia with an old inferior infarct Plan -Hold home statins, BP meds Renal cell carcinoma of right kidney, chronic. Presumed stable. -Pt is s/p nephrectomy in October 2016, previously treated with Pazopanib and dexamethasone. -Per recommendations of oncology from prior admission Pazopanib and dexamethasone may be held for 4-6 weeks while patient stabilizes. -CT abd/pelvis renal cyst as above -Hold home meds -Follow up with Oncology as outpatient in 1-2 weeks to deterimine when to resume Pazopanib and dexamethasone. Respiratory alkalosis with metabolic acidosis. - resolved. Essential Hypertension - BP is stable - hold BP meds Diabetes mellitus, type 2 - stable DVT PROPHYLAXIS: Lovenox Code status: DNR/DNI per patient wishes. Pt made official comfort care after meeting with Hospice and Palliative on 05/10/17. No further workup for medical issues beyond symptomatic management. Disposition: Pt made official comfort care after meeting with Hospice and Palliative on 05/10/17. No further workup for medical issues beyond symptomatic management. Arranging for Home Hospice per SW. s. GI Prophylaxis: H2 saw VTE Prophylaxis: Sub-Q Enoxaparin VTE Mechanical Devices: Intermittant Pneumatic CD Resuscitation Status: DNR/DNI:Do Not Resuscitate/Intubate Walker Barnhart MD May 10, 2017 13:06
[2017-05-10] MEDS: Micafungin Inj 100 MG in 0.9% Sodium Chloride 100 ML IV SCH (13:30)
--- NOTE | 2017-05-10 15:23 | NUR ---
D/C from PT; pt is going comfort care
[2017-05-10] MEDS ORDERED: oxyCODONE 1 mg/mL 5 mL Liquid PO PRN (16:20)
[2017-05-10 17:07] VITALS: PULSE 109; RESP 38; O2SAT 89
[2017-05-10 18:36] VITALS: PULSE 107; RESP 36; O2SAT 88
--- NOTE | 2017-05-10 19:50 | NUR ---
Comfort Pt. resting comfortably throughout shift. Woke briefly to voice. Denied pain/discomfort. Q2H turning/repositioning being provided for comfort. Pt. currently resting in bed with eyes closed. RR regular. No s/s pain or distress. Frequent rounding being performed.
[2017-05-11 00:30] VITALS: PULSE 110; RESP 34; O2SAT 90
--- NOTE | 2017-05-11 06:33 | NUR ---
GI/comfort pt has lg amt of mucus draining from anus. Pt overall in good spirits, making little jokes and follows commands appropriately and answers simple questions, denies any pain, turned for comfort.
[2017-05-11] MEDS: Sodium Chloride LOK Flush 10 mL Syringe IVFLUSH SCH ×2 (08:30→16:30)
[2017-05-11] MEDS: 0.9% Sodium Chloride 250 ML IV SCH ×2 (08:35→17:03)
--- NOTE | 2017-05-11 08:35 | NUR ---
Inpatient Wound Nurse Patient's abdominal dressing changed this morning. No changes to dimensions since yesterday and drainage has saturated Mepilex. Removed gauze has tinge of yellow-green fluid, no distinct odor. Wound bed beefy red and granulating. No periwound erythema. Wound was cleansed and blotted dry, then packed with NS-soaked gauze and covered with sacral Mepilex. Nursing staff may change this secondary dressing PRN. Gauze should not need to be changed more than once daily. CWON will continue a.m. dressing changes. Stage 2 pressure injury has been identified on R sacrum. Two red, crusted areas, each <1 cm L x <1 cm W with no measurable depth, no surrounding erythema, blanchable, appear as healing skin tears. These were cleansed and covered with bordered sacral Mepilex which can be changed PRN.
[2017-05-11 09:25] VITALS: PULSE 117; RESP 20; O2SAT 86
[2017-05-11] MEDS: Atropine 1% 5 mL Ophthalmic Solution SL SCH ×3 (11:54→20:35)
--- NOTE | 2017-05-11 12:00 | PCM.PALLBR ---
Palliative Care Recommendation This is a 71-year-old male patient with complicated history of intra-abdominal abscess secondary to perforated diverticulum requiring partial colectomy and a prolonged hospital stay. He was previously discharged only to return within 36 hours because of altered mental status diagnosis of sepsis. septic shock and acute MD. He has needed TPN, has completed his antibiotic courses but continues to be profoundly debilitated and weak. He has had persistent ileus versus SBO. He initially failed his swallow evaluation; he is now able to eat and drink with modifications for safety but we will lift these per his requests to allow for him to have what he wants. Plan to discharge home as soon as DME is in place and family feels ready to care for him, possible prior to hospice admission. Summary of palliative recommendations: -Symptom management: Pain: patient has not been complaining of pain, but this may change. discussed appropriate interventions with RN and family --oxycodone liquid 2.5-5 mg po q 3 hr prn Respiratory effort and secretions --O2 for comfort; Inform hospice of possible need for O2. --atropine ordered: 2-4 drops q2hr prn excess secretions. Persistent ileus versus SBO. This is complicated again by his narcotics for pain management --goals changing will leave options to use minimal opioids again. Progressive weakness-his believes he is getting weaker and not stronger. Now prolonged hospitalization. --DMW per hospice FCTM today: family reports understanding of illness and prognosis, yet were still confused about role of artificial feeding. After confirming goals Palliative Care has clarified plan re: no PEG and hospice in home. HNW has seen family and will arrange home admission to hospice. In light of this, we have discontinued: 1) lovenox. 2) diagnostic imaging 3) blood sugar checks, guiac, tele 4) all antibiotics and blood products including albumin. See modified diet with additional orders that he can have fluids without thickening if requested. -DPOA/Advanced Directives/POLST-patient's states DURABLE POWER OF [employer] for healthcare completed, also advanced directive. His reiterates DO NOT RESUSCITATE status. --POLST completed: DNR/DNI, comfort only, no antibiotics, no artificial feeding. -Family/emotional support-family are now together in the plan of home care with hospice. Hospice will provide ongoing family support. Additional Medical Diagnoses with primary management by Hospitalist team include : Acute intraabdominal inflammation and infection. ielus Transaminitis, present on admission and active - recent ruptured diverticular s/p sigmoid colectomy and colostomy (03/24-04/19) on previous admission - Wound VAC taken out due to concerns for fistula, assessed by surgery : no fistula , continue dressing as directed - Cultures, viral PCR have been negative thus far. - Infectious Disease Dr. Lozoya evaluated the patient, abx stopped earlier. However, patient spiked fevers yesterday, with pct trending up, was restarted on zosyn and micafungin -Ultrasound of the abdomen 04/07/2017 (last admission) shows a prominent gallbladder (4.2 mm), HIDA scan & MRCP 04/05 clear -HIDA scan obtained on 04/05 shows no evidence of acute cholecystitis. Results as above -IR recommends no additional imaging studies at this point - TPN stopped last night due to labored breathing and tachypnea, will get CXR - without nutrition via TPN, patient's recovery will be minimal to none -Surgery on board Plan - continue dressings - continue abx zosyn,micafungin - Pt made official comfort care after meeting with Hospice and Palliative on . No further workup for medical issues beyond symptomatic management. Dehydration - patient's intravascular blood volume is low due to low proteins, hence pulmonary congestion and peripheral edema is expected without proper nutrition - albumin initially helped improve bun , will not see elevation in cr in setting of ej as patient's nutrition status is poor - HR didnt improve with albumin + fluids, restarted on diltiazem , llikely due to underlying infection -tpn held due to tachypnia last night, will give albumin one time today to help get rid of extra fluids from extravascular space - Pt made official comfort care after meeting with Hospice and Palliative on . No further workup for medical issues beyond symptomatic management. Sinus tachycardia - likely 2/2 to multiple etiologies contributing : malnutrition associated low intravascular volume, anemia , underlying infection - considering patient's cardiac history, will control HR actively - Pt made official comfort care after meeting with Hospice and Palliative on . No further workup for medical issues beyond symptomatic management. Normocytic anemia, chronic. - tranfuse blood if hgb <8.0, h/o cardiac condition - Hgb trended down yesterday, was transfused - HR did not improve after that Severe protein malnutrition, chronic. - stable, improving slowly -2nd to recent major surgery, poor po intake - patient failed swallow eval, will not fluorscopic eval tomorrow Plan -NPO for now - c/w TPN once respiratory status improves - IV Albumin as needed Septic shock, present on admission - resolved. - lactic acid was 7.8, tachypneic, tachycardic, leukocytosis with presumed source of abdominal infection, and AMS requiring brief pressor support. -Possible gallbladder disease given enlargement with stones with elevated LFT , HIDA positive for reduce ejection fraction system with chronic cholecystitis. -No intervention per IR/surgery Pt made official comfort care after meeting with Hospice and Palliative on . No further workup for medical issues beyond symptomatic management. Toxic Encephalopathy -wax-wane mentation , underlying dementia seems like Plan - d/c Seroquel - monitor - Pt made official comfort care after meeting with Hospice and Palliative on . No further workup for medical issues beyond symptomatic management. COPD - stable -O2 support as needed -Duoneb prn , no changes. Coronary artery disease, chronic. History of prior MD requiring two stents. Elevated troponins - stable. -EKG showed sinus tachycardia with an old inferior infarct Plan -Hold home statins, BP meds Renal cell carcinoma of right kidney, chronic. Presumed stable. -Pt is s/p nephrectomy in October 2016, previously treated with Pazopanib and dexamethasone. -Per recommendations of oncology from prior admission Pazopanib and dexamethasone may be held for 4-6 weeks while patient stabilizes. -CT abd/pelvis renal cyst as above -Hold home meds -Follow up with Oncology as outpatient in 1-2 weeks to deterimine when to resume Pazopanib and dexamethasone. Respiratory alkalosis with metabolic acidosis. - resolved. Essential Hypertension - BP is stable - hold BP meds Diabetes mellitus, type 2 - stable Problems: End of Life Preferences Home care with hospice providing comfort measures Goals of Care At this point, the patient and family agree that he does not want aggressive care to try to recover from his profound debility and deconditioning, but rather chooses to be home with family. Disposition home with hospice Resuscitation Status Resuscitation Status: DNR/DNI:Do Not Resuscitate/Intubate POLST Updates/Changes Previous POLST?: No Antibiotics: No Antibiotics Artificially Admin Nutrition: No Artifical Nutrition by Tube POLST Discussed with: Health Care Agent (DPOAHC), Spouse/Other POLST Review Outcome: New Form Completed . Advanced Care Planning Address: Comfort care Pain: Mild Symptom management: Dyspnea, Pain Total time [30] minutes; >50% face to face with patient and/or family, providing counselling regarding plans and recommendations, and in care coordination with his/her medical teams. Palliative Brief Note Date of Service May 11, 2017 . Pt somnolent but rouses to voice. Answers questions though speech continues mumbled. O2 is in place with noted mild respiratory effort. Atropine drops ordered per request of RN for increased secretions. Family being contacted to schedule discharge. See wound care notes. Hospice to be contacted regarding wound care needs and pt/family will be given adequate dressing teaching and supplies on discharge. Inform hospice of possible need for O2 as well. Confirmed this and other orders with Azeem Burrell May 11, 2017 12:00
--- NOTE | 2017-05-11 13:18 | PCM.PNMED ---
Subjective Date of Service May 11, 2017 Subjective No overnight events. Exam Vital Signs Vital Sign - Last Date Time Temp Pulse Resp B/P Pulse Ox O2 Delivery O2 Flow Rate FiO2 05/11/17 09:25 117 20 86 Room Air 05/11/17 00:30 37.0 2.00 92 Intake and Output 05/10/17 05/10/17 05/11/17 Cumulative From/Thru 15:00 23:00 07:00 04/21/17 10:44 - 05/11/17 06:37 Intake Total 0 ml 100 ml 0 ml 40907 ml Output Total 327 ml 3 ml 152 ml 30351 ml Balance -327 ml 97 ml -152 ml 15624 ml Intake Oral 0 ml 100 ml 0 ml 5079 ml IV Total 40592 ml TPN/PPN 7540 ml Packed Cells 951 ml Output Urine Total 2 ml 3 ml 09653 ml Stool Total 325 ml 150 ml 2705 ml Urine/Stool Mix 20 ml Emesis 15 ml Drainage Total 5 ml Other 2 ml 2 ml # Voids 1 19 # Bowel Movements 0 Exam GENERAL: Awake not oriented. Mild to moderated distress EAR, NOSE, MOUTH, THROAT: Lips, oral mucosa, tongue gums, oropharynx are dry, pink, no lesions NECK: no jugulovenous distention; supple ROM normal. RESPIRATORY: Lungs clear to auscultation. Labored breathing. CARDIAC: normal S1 and S2; no rubs, murmurs, or gallops; regular rhythm ABDOMEN: Distended, ostomy producing brown/greenish stool. EXTREMITIES: pitting edema in LE, no new deformities or skin discoloration. PULSES: 2+ radial, 2+ carotid IVs and Medications Medications Reviewed: Medications were reviewed in detail Lab and Diagnostics Result Diagram: 05/09/17 0445 05/10/17 0615 Microbiology Blood cultures pending X-Rays, CTs and MRIs . X-RAY CHEST ONE VIEW, PORTABLE IMPRESSION: No acute cardiopulmonary disease. Dictated by: Darius Molina M.D. on 04/21/2017 X-RAY PICC LINE PLACEMENT BY NURSE IMPRESSION: Tip of PICC lies within the lower superior vena cava. Dictated by: Darius Molina M.D. on 04/21/2017 CT ANGIO CHEST PULMONARY EMBOLISM IMPRESSION: 1. No large pulmonary emboli. Respiratory motion artifact limits evaluation for small emboli. 2. Mild bronchial wall thickening within the bilateral infrahilar regions ( left greater than right) may represent bronchitis. 3. New/Increasing right middle lobe ground glass nodules. A three-month followup CT of the chest is recommended with contrast. 4. No lymphadenopathy within the chest. 5. 1.3 cm hypodense left thyroid nodule. Please consider a thyroid ultrasound for further evaluation Dictated by: Tarik Roe M.D. on 04/21/2017 CT ABDOMEN AND PELVIS WITH CONTRAST IMPRESSION: 1. Interval postoperative changes of the bowel with a left lower quadrant colostomy. No bowel obstruction. 2. Mild ascites and moderate mesenteric edema probably is related to interval surgery. No drainable fluid collection or definable abscess is evident. 3. Mild prominence of the vieyra of multiple loops of bowel is nonspecific. However, this appearance may be related to colitis or enteritis and clinical correlation is recommended. 4. Fluid within the rectal stump probably is within normal limits. Other: -Absent right kidney and adrenal gland. -Cholelithiasis. -Hepatic steatosis. -Pancreatic lesion is not well evaluated on this exam. -Unusual appearance of an L1 compression fracture may be related to chronic sclerosis. However, a pathologic compression fracture related to metastatic lesion is difficult to exclude. Dictated by: Tarik Roe M.D. on 04/21/2017 Additional Diagnostics DateTimeAnalyzed 14:02:00 -_ pH ____7.474 - 7.350 7.450 pCO2 ___27.7__ -mmHg 35.0 45.0 pO2 107 -mmHg 69.0 116 HCO3- ___20.1__ -mmol/L 22.0 26.0 ABE ___-2.7__ -mmol/L -2.0 2.0 tHb ____7.0__ -g/dL 12.0 18.0 O2Hb ___96.2__ -% COHb ____1.6__ -% 0.0 1.5 MetHb ____0.5__ -% 0.4 1.5 sO2 ___98.3__ -% 25.0 FIO2 ___32.0__ -% Drawn By as - Date/Time Notified____ 14:08:00 -_ Spontaneous_RR ___26.0__ -b/min Liter_Flow ____3.0__ -L/min Oxygen Device 1 __CANNULA - Notified By AMS - Notified Whom DR OKELLY - B 756 -mmHg tO2 ____9.7__ -Vol% Lion test _Positive - Assessment & Plan Patient is a 71-year-old male with a recent history of partial colectomy secondary to intra-abdominal abscess, diverticular disease presented to ED with syncopal episode , was diagnosed with septic shock, intrabdominal infection. ID and surgery were consulted. Patient was treated with IV antibiotics, IVF. He is malnurished and is on TPN until his oral intake improves. Pt made official comfort care after meeting with Hospice and Palliative on 05/10/17. No further workup for medical issues beyond symptomatic management. Acute intraabdominal inflammation and infection. ielus Transaminitis, present on admission and active - recent ruptured diverticular s/p sigmoid colectomy and colostomy (03/24-04/19) on previous admission - Wound VAC taken out due to concerns for fistula, assessed by surgery : no fistula , continue dressing as directed - Cultures, viral PCR have been negative thus far. - Infectious Disease Dr. Lozoya evaluated the patient, abx stopped earlier. However, patient spiked fevers yesterday, with pct trending up, was restarted on zosyn and micafungin -Ultrasound of the abdomen 04/07/2017 (last admission) shows a prominent gallbladder (4.2 mm), HIDA scan & MRCP 04/05 clear -HIDA scan obtained on 04/05 shows no evidence of acute cholecystitis. Results as above -IR recommends no additional imaging studies at this point - TPN stopped last night due to labored breathing and tachypnea, will get CXR - without nutrition via TPN, patient's recovery will be minimal to none -Surgery on board Plan - continue dressings - continue abx zosyn,micafungin - Pt made official comfort care after meeting with Hospice and Palliative on . No further workup for medical issues beyond symptomatic management. Dehydration - patient's intravascular blood volume is low due to low proteins, hence pulmonary congestion and peripheral edema is expected without proper nutrition - albumin initially helped improve bun , will not see elevation in cr in setting of ej as patient's nutrition status is poor - HR didnt improve with albumin + fluids, restarted on diltiazem , llikely due to underlying infection -tpn held due to tachypnia last night, will give albumin one time today to help get rid of extra fluids from extravascular space - Pt made official comfort care after meeting with Hospice and Palliative on . No further workup for medical issues beyond symptomatic management. Sinus tachycardia - likely 2/2 to multiple etiologies contributing : malnutrition associated low intravascular volume, anemia , underlying infection - considering patient's cardiac history, will control HR actively - Pt made official comfort care after meeting with Hospice and Palliative on . No further workup for medical issues beyond symptomatic management. Normocytic anemia, chronic. - tranfuse blood if hgb <8.0, h/o cardiac condition - Hgb trended down yesterday, was transfused - HR did not improve after that Severe protein malnutrition, chronic. - stable, improving slowly -2nd to recent major surgery, poor po intake - patient failed swallow eval, will not fluorscopic eval tomorrow Plan -NPO for now - c/w TPN once respiratory status improves - IV Albumin as needed Septic shock, present on admission - resolved. - lactic acid was 7.8, tachypneic, tachycardic, leukocytosis with presumed source of abdominal infection, and AMS requiring brief pressor support. -Possible gallbladder disease given enlargement with stones with elevated LFT , HIDA positive for reduce ejection fraction system with chronic cholecystitis. -No intervention per IR/surgery Pt made official comfort care after meeting with Hospice and Palliative on . No further workup for medical issues beyond symptomatic management. Toxic Encephalopathy -wax-wane mentation , underlying dementia seems like Plan - d/c Seroquel - monitor - Pt made official comfort care after meeting with Hospice and Palliative on . No further workup for medical issues beyond symptomatic management. COPD - stable -O2 support as needed -Duoneb prn , no changes. Coronary artery disease, chronic. History of prior MO requiring two stents. Elevated troponins - stable. -EKG showed sinus tachycardia with an old inferior infarct Plan -Hold home statins, BP meds Renal cell carcinoma of right kidney, chronic. Presumed stable. -Pt is s/p nephrectomy in October 2016, previously treated with Pazopanib and dexamethasone. -Per recommendations of oncology from prior admission Pazopanib and dexamethasone may be held for 4-6 weeks while patient stabilizes. -CT abd/pelvis renal cyst as above -Hold home meds -Follow up with Oncology as outpatient in 1-2 weeks to deterimine when to resume Pazopanib and dexamethasone. Respiratory alkalosis with metabolic acidosis. - resolved. Essential Hypertension - BP is stable - hold BP meds Diabetes mellitus, type 2 - stable DVT PROPHYLAXIS: Lovenox Code status: DNR/DNI per patient wishes. Pt made official comfort care after meeting with Hospice and Palliative on 05/10/17. No further workup for medical issues beyond symptomatic management. Disposition: Pt made official comfort care after meeting with Hospice and Palliative on 05/10/17. Will f/u with to possibly send home before Hospice opens MondayMay 13. GI Prophylaxis: H2 saw VTE Prophylaxis: Sub-Q Enoxaparin VTE Mechanical Devices: Intermittant Pneumatic CD Resuscitation Status: DNR/DNI:Do Not Resuscitate/Intubate Walker Barnhart MD May 11, 2017 13:18
[2017-05-11] MEDS: Atropine 1% 5 mL Ophthalmic Solution SL PRN (14:02)
[2017-05-11 14:10] VITALS: PULSE 114; RESP 24; O2SAT 97
--- NOTE | 2017-05-11 15:15 | NUR ---
CR acknowledged by pt's over the phone. Zohra Riley [employer]
--- NOTE | 2017-05-11 15:24 | NUR ---
Social Work- Readiness for Discharge Data: EMR reviewed. Pt is on day 20 of hospitalization. Pt is medically ready for discharge. Pt discussed in multidisciplinary rounds, going to discharge tomorrow. PICC to be D/C. Pt will d/c on all PO medications tomorrow. Pt will require BLS transport, order received and PCS form complete. T/C to Augustina, pt's , who is planning on taking patient home tomorrow afternoon after hospice delivers equipment to the home. Requested Augustina to call [employer] REPAIR HELPER when equipment is delivered as she won't know what time until tomorrow morning. Augustina is also agreeable to learning the dressing change for pt's umbilical wound. Informed Augustina that pt requires BLS but coverage of BLS is never guaranteed. Augustina stated understanding and is agreeable to plan. Hospice will open Monday between 10 and 11 am. T/C to [facility] inpt environmental communications specialist, who is going to teach pt's the dressing change prior to pt's d/c. Clau will also provide family with a week of wound supplies for use at home. T/C to Ladonna at [facility], left message informing her of plan for tomorrow and also making sure she is aware of the need for an ongoing supply of wound dressings. Awaiting return call to confirm this information. updated of plan. Pt's updated and agreeable to plan, SW will continue to follow until time of d/c. Assessment: Pt for whom hospice is appropriate at this time. Plan: Pt will discharge home tomorrow after equipment is delivered. Hospice will open on Monday. Pt's to be educated on wound dressing changes prior to pt's discharge. All updated and agreeable to plan. SW will continue to follow until time of d/c. Zohra Riley MSW
[2017-05-11 16:36] VITALS: BP 130/80; PULSE 116; RESP 18; O2SAT 96
--- NOTE | 2017-05-11 18:10 | NUR ---
DISCHARGE PLAN Patient is on comfort care, to be discharged home tomorrow to Hospice, who will be bringing bed to house in early am per phone conversation today. Patient denies pain, getting Atropine eye drops PRN to dry up oral secretions. Bottom has redness and some small skin tears cream applied and Mepilex removed due to repeated soaking of mucus from bowel.
--- NOTE | 2017-05-12 05:20 | NUR ---
Skin/ Respiratory No mucus present from anus during this shift. Pt. incontinent of urine. Barrier wipes used. New meiplex placed on buttocks. Pt. had increased respiratory secretions earlier in shift. Atropine drops given as ordered, and seem to be effective. Will continue to monitor.
[2017-05-12] MEDS: Atropine 1% 5 mL Ophthalmic Solution SL SCH ×2 (06:01→11:30)
[2017-05-12] MEDS: Atropine 1% 5 mL Ophthalmic Solution SL PRN (09:53)
[2017-05-12 09:55] VITALS: BP 130/80; PULSE 112; RESP 18; O2SAT 96
--- NOTE | 2017-05-12 10:18 | PCM.PNMED ---
Subjective Date of Service May 12, 2017 Subjective No overnight events, pain well controlled. Exam Vital Signs Vital Sign - Last Date Time Temp Pulse Resp B/P Pulse Ox O2 Delivery O2 Flow Rate FiO2 05/12/17 09:55 36.8 112 18 130/80 96 Nasal Cannula 3.00 94 Intake and Output 05/11/17 05/11/17 05/12/17 Cumulative From/Thru 15:00 23:00 07:00 04/21/17 10:44 - 05/12/17 06:58 Intake Total 358 ml 240 ml 81652 ml Output Total 2 ml 0 ml 01240 ml Balance 356 ml 240 ml 18710 ml Intake Oral 358 ml 240 ml 5677 ml IV Total 59889 ml TPN/PPN 7540 ml Packed Cells 951 ml Output Urine Total 0 ml 08972 ml Stool Total 0 ml 2705 ml Urine/Stool Mix 20 ml Emesis 15 ml Drainage Total 5 ml Other 2 ml 4 ml # Voids 1 20 # Bowel Movements 0 Exam GENERAL: Awake, interactive. AOX1. EAR, NOSE, MOUTH, THROAT: Lips, oral mucosa, tongue gums, oropharynx are dry, pink, no lesions NECK: no jugulovenous distention; supple ROM normal. RESPIRATORY: +Rhonchi, CARDIAC: normal S1 and S2; ABDOMEN: non-distended. ostomy producing brown/greenish stool. PULSES: 2+ radial, 2+ carotid IVs and Medications Medications Reviewed: Medications were reviewed in detail Lab and Diagnostics Result Diagram: 05/09/17 0445 05/10/17 0615 Microbiology Blood cultures pending X-Rays, CTs and MRIs . X-RAY CHEST ONE VIEW, PORTABLE IMPRESSION: No acute cardiopulmonary disease. Dictated by: Darius Molina M.D. on 04/21/2017 X-RAY PICC LINE PLACEMENT BY NURSE IMPRESSION: Tip of PICC lies within the lower superior vena cava. Dictated by: Darius Molina M.D. on 04/21/2017 CT ANGIO CHEST PULMONARY EMBOLISM IMPRESSION: 1. No large pulmonary emboli. Respiratory motion artifact limits evaluation for small emboli. 2. Mild bronchial wall thickening within the bilateral infrahilar regions ( left greater than right) may represent bronchitis. 3. New/Increasing right middle lobe ground glass nodules. A three-month followup CT of the chest is recommended with contrast. 4. No lymphadenopathy within the chest. 5. 1.3 cm hypodense left thyroid nodule. Please consider a thyroid ultrasound for further evaluation Dictated by: Tarik Roe M.D. on 04/21/2017 CT ABDOMEN AND PELVIS WITH CONTRAST IMPRESSION: 1. Interval postoperative changes of the bowel with a left lower quadrant colostomy. No bowel obstruction. 2. Mild ascites and moderate mesenteric edema probably is related to interval surgery. No drainable fluid collection or definable abscess is evident. 3. Mild prominence of the vieyra of multiple loops of bowel is nonspecific. However, this appearance may be related to colitis or enteritis and clinical correlation is recommended. 4. Fluid within the rectal stump probably is within normal limits. Other: -Absent right kidney and adrenal gland. -Cholelithiasis. -Hepatic steatosis. -Pancreatic lesion is not well evaluated on this exam. -Unusual appearance of an L1 compression fracture may be related to chronic sclerosis. However, a pathologic compression fracture related to metastatic lesion is difficult to exclude. Dictated by: Tarik Roe M.D. on 04/21/2017 Additional Diagnostics DateTimeAnalyzed 14:02:00 -_ pH ____7.474 - 7.350 7.450 pCO2 ___27.7__ -mmHg 35.0 45.0 pO2 107 -mmHg 69.0 116 HCO3- ___20.1__ -mmol/L 22.0 26.0 ABE ___-2.7__ -mmol/L -2.0 2.0 tHb ____7.0__ -g/dL 12.0 18.0 O2Hb ___96.2__ -% COHb ____1.6__ -% 0.0 1.5 MetHb ____0.5__ -% 0.4 1.5 sO2 ___98.3__ -% 25.0 FIO2 ___32.0__ -% Drawn By as - Date/Time Notified____ 14:08:00 -_ Spontaneous_RR ___26.0__ -b/min Liter_Flow ____3.0__ -L/min Oxygen Device 1 __CANNULA - Notified By AMS - Notified Whom DR OKELLY - B 756 -mmHg tO2 ____9.7__ -Vol% Lion test _Positive - Assessment & Plan Patient is a 71-year-old male with a recent history of partial colectomy secondary to intra-abdominal abscess, diverticular disease presented to ED with syncopal episode , was diagnosed with septic shock, intrabdominal infection. ID and surgery were consulted. Patient was treated with IV antibiotics, IVF. He is malnurished and is on TPN until his oral intake improves. Pt made official comfort care after meeting with [facility] on 05/10/17. No further workup for medical issues beyond symptomatic management. Acute intraabdominal inflammation and infection. ielus Transaminitis, present on admission and active - recent ruptured diverticular s/p sigmoid colectomy and colostomy (03/24-04/19) on previous admission - Wound VAC taken out due to concerns for fistula, assessed by surgery : no fistula , continue dressing as directed - Cultures, viral PCR have been negative thus far. - Infectious Disease Dr. Lozoya evaluated the patient, abx stopped earlier. However, patient spiked fevers yesterday, with pct trending up, was restarted on zosyn and micafungin -Ultrasound of the abdomen 04/07/2017 (last admission) shows a prominent gallbladder (4.2 mm), HIDA scan & MRCP 04/05 clear -HIDA scan obtained on 04/05 shows no evidence of acute cholecystitis. Results as above -IR recommends no additional imaging studies at this point - TPN stopped last night due to labored breathing and tachypnea, will get CXR - without nutrition via TPN, patient's recovery will be minimal to none -Surgery on board Plan - continue dressings - continue abx zosyn,micafungin - Pt made official comfort care after meeting with Hospice and Palliative on . No further workup for medical issues beyond symptomatic management. Dehydration - patient's intravascular blood volume is low due to low proteins, hence pulmonary congestion and peripheral edema is expected without proper nutrition - albumin initially helped improve bun , will not see elevation in cr in setting of ej as patient's nutrition status is poor - HR didnt improve with albumin + fluids, restarted on diltiazem , llikely due to underlying infection -tpn held due to tachypnia last night, will give albumin one time today to help get rid of extra fluids from extravascular space - Pt made official comfort care after meeting with [facility]ospice [facility]iative on . No further workup for medical issues beyond symptomatic management. Sinus tachycardia - likely 2/2 to multiple etiologies contributing : malnutrition associated low intravascular volume, anemia , underlying infection - considering patient's cardiac history, will control HR actively - Pt made official comfort care after meeting with Hospice and Palliative on . No further workup for medical issues beyond symptomatic management. Normocytic anemia, chronic. - tranfuse blood if hgb <8.0, h/o cardiac condition - Hgb trended down yesterday, was transfused - HR did not improve after that Severe protein malnutrition, chronic. - stable, improving slowly -2nd to recent major surgery, poor po intake - patient failed swallow eval, will not fluorscopic eval tomorrow Plan -NPO for now - c/w TPN once respiratory status improves - IV Albumin as needed Septic shock, present on admission - resolved. - lactic acid was 7.8, tachypneic, tachycardic, leukocytosis with presumed source of abdominal infection, and AMS requiring brief pressor support. -Possible gallbladder disease given enlargement with stones with elevated LFT , HIDA positive for reduce ejection fraction system with chronic cholecystitis. -No intervention per IR/surgery Pt made official comfort care after meeting with Hospice and Palliative on . No further workup for medical issues beyond symptomatic management. Toxic Encephalopathy -wax-wane mentation , underlying dementia seems like Plan - d/c Seroquel - monitor - Pt made official comfort care after meeting with Hospice and Palliative on . No further workup for medical issues beyond symptomatic management. COPD - stable -O2 support as needed -Duoneb prn , no changes. Coronary artery disease, chronic. History of prior NV requiring two stents. Elevated troponins - stable. -EKG showed sinus tachycardia with an old inferior infarct Plan -Hold home statins, BP meds Renal cell carcinoma of right kidney, chronic. Presumed stable. -Pt is s/p nephrectomy in October 2016, previously treated with Pazopanib and dexamethasone. -Per recommendations of oncology from prior admission Pazopanib and dexamethasone may be held for 4-6 weeks while patient stabilizes. -CT abd/pelvis renal cyst as above -Hold home meds -Follow up with Oncology as outpatient in 1-2 weeks to deterimine when to resume Pazopanib and dexamethasone. Respiratory alkalosis with metabolic acidosis. - resolved. Essential Hypertension - BP is stable - hold BP meds Diabetes mellitus, type 2 - stable DVT PROPHYLAXIS: Lovenox Code status: DNR/DNI per patient wishes. Pt made official comfort care after meeting with Hospice and Palliative on 05/10/17. No further workup for medical issues beyond symptomatic management. Disposition: Pt made official comfort care after meeting with Hospice and Palliative on 05/10/17. Likely discharge today with family. GI Prophylaxis: H2 saw VTE Prophylaxis: Sub-Q Enoxaparin VTE Mechanical Devices: Intermittant Pneumatic CD Resuscitation Status: DNR/DNI:Do Not Resuscitate/Intubate Walker Barnhart MD May 12, 2017 10:18
[2017-05-12] MEDS ORDERED: ATRO2DRO4 SL (10:43)
[2017-05-12] MEDS ORDERED: OXYC5SOL11 PO (10:43)
--- NOTE | 2017-05-12 11:20 | NUR ---
Social Work: Readiness for Discharge/Multidisciplinary Rounds D: EMR reviewed. Pt is on day 21 of hospitalization. Pt discussed in multidisciplinary rounds and is medically stable for discharge home today via BLS in order to open with [facility] tomorrow. STEPHANIE placed T/C to pt's spouse Augustina and confirmed equipment has been delivered. STEPHANIE received T/C from Jenny at [facility] confirming pt will discharge home today. Jenny confirmed pt will open with [facility] tomorrow as planned. STEPHANIE notified MD. Palliative MD confirmed he will write rx for pt's pain medications, attending MD to write rx for remaining. SW notified MD regarding rx, MD agreeable. STEPHANIE received order for BLS transport. STEPHANIE signed BLS form and gave to Electronics Inspector. STEPHANIE notified Electronics Inspector to complete BLS ppw and coordinate BLS transfer. Electronics Inspector agreeable. SW to update pt's spouse on BLS transfer time. A: Pt to return home today and open with [facility] tomorrow. P: Pt to discharge home via BLS today and open with [facility] tomorrow. STEPHANIE signed BLS form and gave to Electronics Inspector. STEPHANIE notified Electronics Inspector to complete BLS ppw and coordinate BLS transfer. Electronics Inspector agreeable. SW to update pt's spouse and RN on BLS transfer time. STEPHANIE will continue to follow. [facility]
[2017-05-12] MEDS ORDERED: MIRT15TA6 PO (11:30)
[2017-05-12] MEDS ORDERED: Acetaminophen PO (11:30)
[2017-05-12] MEDS ORDERED: Acetaminophen RECTAL (11:30)
[2017-05-12] MEDS ORDERED: Al Hydrox/Mg Hydrox/Simeth PO (11:30)
[2017-05-12] MEDS ORDERED: ONDA8TAB7 PO (11:30)
[2017-05-12] MEDS ORDERED: POLY17PO6 PO (11:30)
[2017-05-12] MEDS ORDERED: DILT30TA30 PO (11:30)
--- NOTE | 2017-05-12 11:30 | PCM.DC.MED ---
Discharge Summary Date of Service May 12, 2017 Dates of Hospitalization Date of Hospital Admission Apr 21, 2017 at 13:59 Date of Discharge: May 12, 2017 Providers: Admitting Physician: Attila Cheung MD Primary Care Physician: Vik Sagastume MD Attending Physician: Augustin Barnhart MD Diagnosis at Time of Discharge Diagnosis at Time of Discharge Acute intraabdominal inflammation and infection. ielus Transaminitis, present on admission and active Respiratory alkalosis with metabolic acidosis. Dehydration Sinus tachycardia Normocytic anemia, chronic. Severe protein malnutrition, chronic. Septic shock, present on admission, resolved. Toxic Encephalopathy, active. Chronic- COPD Coronary artery disease, chronic. History of prior MT requiring two stents. Elevated troponins stable. Renal cell carcinoma of right kidney, chronic. Essential Hypertension Diaetes mellitus, type 2 Procedures XRay, CTs & MRIs . X-RAY CHEST ONE VIEW, PORTABLE IMPRESSION: No acute cardiopulmonary disease. Dictated by: Darius Molina M.D. on 04/21/2017 X-RAY PICC LINE PLACEMENT BY NURSE IMPRESSION: Tip of PICC lies within the lower superior vena cava. Dictated by: Darius Molina M.D. on 04/21/2017 CT ANGIO CHEST PULMONARY EMBOLISM IMPRESSION: 1. No large pulmonary emboli. Respiratory motion artifact limits evaluation for small emboli. 2. Mild bronchial wall thickening within the bilateral infrahilar regions ( left greater than right) may represent bronchitis. 3. New/Increasing right middle lobe ground glass nodules. A three-month followup CT of the chest is recommended with contrast. 4. No lymphadenopathy within the chest. 5. 1.3 cm hypodense left thyroid nodule. Please consider a thyroid ultrasound for further evaluation Dictated by: Tarik Roe M.D. on 04/21/2017 CT ABDOMEN AND PELVIS WITH CONTRAST IMPRESSION: 1. Interval postoperative changes of the bowel with a left lower quadrant colostomy. No bowel obstruction. 2. Mild ascites and moderate mesenteric edema probably is related to interval surgery. No drainable fluid collection or definable abscess is evident. 3. Mild prominence of the vieyra of multiple loops of bowel is nonspecific. However, this appearance may be related to colitis or enteritis and clinical correlation is recommended. 4. Fluid within the rectal stump probably is within normal limits. Other: -Absent right kidney and adrenal gland. -Cholelithiasis. -Hepatic steatosis. -Pancreatic lesion is not well evaluated on this exam. -Unusual appearance of an L1 compression fracture may be related to chronic sclerosis. However, a pathologic compression fracture related to metastatic lesion is difficult to exclude. Dictated by: Tarik Roe M.D. on 04/21/2017 Other Diagnostics DateTimeAnalyzed 14:02:00 -_ pH ____7.474 - 7.350 7.450 pCO2 ___27.7__ -mmHg 35.0 45.0 pO2 107 -mmHg 69.0 116 HCO3- ___20.1__ -mmol/L 22.0 26.0 ABE ___-2.7__ -mmol/L -2.0 2.0 tHb ____7.0__ -g/dL 12.0 18.0 O2Hb ___96.2__ -% COHb ____1.6__ -% 0.0 1.5 MetHb ____0.5__ -% 0.4 1.5 sO2 ___98.3__ -% 25.0 FIO2 ___32.0__ -% Drawn By as - Date/Time Notified____ 14:08:00 -_ Spontaneous_RR ___26.0__ -b/min Liter_Flow ____3.0__ -L/min Oxygen Device 1 __CANNULA - Notified By AMS - Notified Whom DR OKELLY - B 756 -mmHg tO2 ____9.7__ -Vol% Lion test _Positive - Brief History Per HPI by Dr. Hart on 04/21/17 Mr. Saldivar is a 71-year-old male with past medical history of recent intra- abdominal abscess secondary to perforated diverticulitis requiring sigmoid colectomy and descending colostomy which required postsurgical intubation and CCU admission. Patient's infection was treated appropriately during this hospital stay there was some concern of hepatic cholecystitis that had improved during hospital course. Discharged from [facility] 04/19/2017 who returns to the ED from wound care secondary to a reported 10 minute episode of unresponsiveness followed by sustained decreased mentation. Since discharge he has complained of associated abdominal pain. At time of interview patient just received fentanyl prior to additional chest and abdominal imaging, unable to complete thorough review of systems. HX taken primarily from chart and patients of 9 years- Augustina. Reason for consult-review goals of care consulting provider: Dr. Sage 71-year-old male patient with complicated history of intra-abdominal abscess secondary to perforated diverticulum requiring partial colectomy and a prolonged hospital stay. He was discharged 96 only to return within 36 hours because of altered mental status diagnosis of sepsis and acute MT. Exact diagnosis for his sepsis and cause remains bit unclear. He is now on TPN has completed his antibiotic courses and is profoundly debilitated and weak. His identifies that his right leg is significantly weaker than left which she relates to prior surgery. He has history of gamma knife surgery for "tumor" 2 she is lumbar spine which she states is unclear if it relates to his original malignancy. He has had persistent ileus versus SBO and recently failed his swallow evaluation. His states that they have completed advance directives and DURABLE POWER OF CHECK CASHIER for healthcare. She does not have a copy with her. She states they have been 9 years and just with this acute illness when she put on his checking account. She states she makes any decisions regarding treatment for her in conjunction with his son Bang. Bang is not available at this interview Palliative review regarding goals of care. His is dates he had minimal problems with memory loss prior to this hospitalization. 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 ID and surgery were consulted. Patient was treated with IV antibiotics, IVF. He is malnurished and is on TPN until his oral intake improves. Pt made official comfort care after meeting with Hospice and Palliative on 05/10/17. No further workup for medical issues beyond symptomatic management. Acute intraabdominal inflammation and infection. ielus Transaminitis, present on admission and active - recent ruptured diverticular s/p sigmoid colectomy and colostomy (03/24-04/19) on previous admission - Wound VAC taken out due to concerns for fistula, assessed by surgery : no fistula , continue dressing as directed - Cultures, viral PCR have been negative - Infectious Disease Dr. Lozoya evaluated the patient, abx stopped earlier. However, patient spiked fevers, with pct trending up, was restarted on zosyn and micafungin -Ultrasound of the abdomen 04/07/2017 (last admission) shows a prominent gallbladder (4.2 mm), HIDA scan & MRCP 04/05 clear -HIDA scan obtained on 04/05 shows no evidence of acute cholecystitis. Results as above -IR recommends no additional imaging studies at this point -Surgery was following, non-surgical candidate at this time. - Pt made official comfort care after meeting with Hospice and Palliative on . No further workup for medical issues beyond symptomatic management. - Stopped abx- zosyn,micafungin - continue dressings changes, instructions given to family on how to do daily changes at home. Dehydration - HR didnt improve with albumin + fluids, restarted on diltiazem , llikely due to underlying infection - Pt made official comfort care after meeting with Hospice and Palliative on . No further workup for medical issues beyond symptomatic management. Sinus tachycardia - likely 2/2 to multiple etiologies contributing : malnutrition associated low intravascular volume, anemia , underlying infection - considering patient's cardiac history, attempt to control HR actively - Pt made official comfort care after meeting with Hospice and Palliative on . No further workup for medical issues beyond symptomatic management. Normocytic anemia, chronic. - tranfuse blood if hgb <8.0, h/o cardiac condition - was transfused during this admit. Severe protein malnutrition, chronic. - 2nd to recent major surgery, poor po intake - patient failed swallow eval - Pt made official comfort care after meeting with Hospice and Palliative on . No further workup for medical issues beyond symptomatic management. Septic shock, present on admission, resolved. - resolved. - lactic acid was 7.8, tachypneic, tachycardic, leukocytosis with presumed source of abdominal infection, and AMS requiring brief pressor support. -Possible gallbladder disease given enlargement with stones with elevated LFT , HIDA positive for reduce ejection fraction system with chronic cholecystitis. -No intervention per IR/surgery Toxic Encephalopathy, active. -wax-wane mentation , underlying dementia seems like - Pt made official comfort care after meeting with Hospice and Palliative on . No further workup for medical issues beyond symptomatic management. COPD - stable -O2 support as needed Coronary artery disease, chronic. History of prior MT requiring two stents. Elevated troponins stable. EKG showed sinus tachycardia with an old inferior infarct Renal cell carcinoma of right kidney, chronic. Presumed stable. -Pt is s/p nephrectomy in October 2016, previously treated with Pazopanib and dexamethasone. -Per recommendations of oncology from prior admission Pazopanib and dexamethasone may be held for 4-6 weeks while patient stabilizes. -CT abd/pelvis renal cyst as above Respiratory alkalosis with metabolic acidosis. - resolved. Essential Hypertension - BP is stable Diabetes mellitus, type 2 - stable Code status: DNR/DNI per patient wishes. Pt made official comfort care after meeting with Hospice and Palliative on 05/10/17. No further workup for medical issues beyond symptomatic management. Disposition: Pt made official comfort care after meeting with Hospice and Palliative on 05/10/17. Discharge today with family. Hospice has delivered equipment at home. Will require BLS transport. Hospice will open Monday. Continue dressings changes as instructed. Exam Vital Signs (Last) Date Time Temp Pulse Resp B/P Pulse Ox O2 Delivery O2 Flow Rate FiO2 05/12/17 09:55 36.8 112 18 130/80 96 Nasal Cannula 3.00 94 Test 04/21/17 11:55 04/21/17 12:05 04/21/17 14:35 04/21/17 16:27 Pro-B-Type Natriuretic Peptide 414.4pg/mL (0-376) D-Dimer 3.65mg/L FEU (<0.50) Urine Color Dark yellow (YELLOW) Urine Appearance Hazy (CLEAR,HAZY) Urine pH 7.5 (5.0-8.0) Urine Specific [place] 1.020 (1.003-1.035) Urine Protein 100mg/dL (NEG,TRACE) Urine Glucose (UA) Negativemg/dL (NEGATIVE) Urine Ketones Negativemg/dL (NEGATIVE) Urine Occult Blood Trace (NEGATIVE) Urine Nitrite Negative (NEGATIVE) Urine Bilirubin Negative (NEGATIVE) Urine Urobilinogen Normalmg/dL (NORMAL) Urine Leukocyte Esterase Negative (NEGATIVE) Urine RBC 0-2/hpf (0-2) Urine WBC 6-10/hpf (0-5) Urine Epithelial Cells Occasional/hpf (NONE-MOD) Urine Crystals None seen (NONE SEEN) Urine Bacteria Many/hpf (NONE-FEW) Urine Hyaline Casts None/lpf (NONE) Urine Granular Casts None seen (NONE SEEN) Urine Waxy Casts None seen (NONE SEEN) Urine Red Blood Cell Casts None seen (NONE SEEN) Urine White Blood Cell Casts None seen (NONE SEEN) Urine Mucus None seen (None Seen) Urine Trichomonas None seen (NONE SEEN) Urine Yeast None (NONE SEEN) Urinalysis Comment None Urine Culture Reflexed Indicated Hemoglobin A1c 5.3% (4.8-5.6) Troponin T 0.029ug/L (0.0-0.011) Test 04/21/17 16:32 04/21/17 18:10 04/22/17 03:15 04/23/17 03:45 Lipase 9U/L (13-60) Hold Bravo Top Tube Received (Received) Prothrombin Time 13.1sec (8.1-12.5) Prothromb Time International Ratio 1.22ratio Hold Purple Top Tube Received (Received) Hold [place] Top Tube Received (Received) Test 04/23/17 09:42 04/29/17 04:21 05/01/17 05:00 05/02/17 05:11 Lactic Acid Level 1.1mmol/L (0.4-2.0) Myelocytes % 1% (0-0) Prealbumin 7mg/dL (20-40) Gamma Glutamyl Transpeptidase 207IU/L (0-65) Mitochondrial/Smooth Musc Ab Titer 6.7Units (0.0-20.0) Band Neutrophils % 1% (1-5) Metamyelocytes % 1% (0-0) Hematology Comments Test 05/04/17 09:41 05/08/17 05:55 05/09/17 04:45 05/10/17 06:15 Ammonia 32ug/dL (18-53) Total Bilirubin 0.8mg/dL (0.0-1.2) Aspartate Amino Transf (AST/SGOT) 29U/L (0-50) Alanine Aminotransferase (ALT/SGPT) 18U/L (0-44) Alkaline Phosphatase 368U/L (25-160) Total Protein 5.1g/dL (6.4-8.4) Albumin 2.8g/dL (3.4-5.0) Procalcitonin 0.52ng/mL (0.00-0.08) Thyroid Stimulating Hormone (TSH) 3.970uIU/mL (0.450-4.500) Free Thyroxine 0.90ng/dL (0.82-1.77) White Blood Count 14.1th/mm3 (3.8-10.1) Red Blood Count 3.16mil/mm3 (4.40-5.80) Hemoglobin 8.9g/dL (13.8-17.2) Hematocrit 28.5% (41.0-50.0) Mean Corpuscular Volume 90.2fL (81-100) Mean Corpuscular Hemoglobin 28.2pg (27.0-35.0) Mean Corpuscular Hemoglobin Concent 31.2% (32.0-37.0) Red Cell Distribution Width 18.2% (12.3-15.4) Platelet Count 477bil/L (150-400) Neutrophils (%) (Auto) 82.1% (40-74) Lymphocytes (%) (Auto) 6.0% (14-46) Monocytes (%) (Auto) 7.4% (4-12) Eosinophils (%) (Auto) 3.5% (0-5) Basophils (%) (Auto) 0.4% (0-3) Phosphorus Level 2.7mg/dL (2.5-4.9) Magnesium Level 2.1mg/dL (1.6-2.6) Triglycerides Level 185mg/dL (0-149) Sodium Level 145mEq/L (134-144) Potassium Level 3.7mEq/L (3.5-5.2) Chloride Level 108mEq/L (97-108) Carbon Dioxide Level 27mmol/L (18-29) Blood Urea Nitrogen 21mg/dL (8-27) Creatinine 0.64mg/dL (0.76-1.27) Estimat Glomerular Filtration Rate 131mL/min (>59) Glucose Level 101mg/dL (60-99) Calcium Level 8.4mg/dL (8.5-10.1) Microbiology Results Blood cultures pending Discharge Medications Discharge Medications Aspirin (Aspirin) 81 Mg Tablet 81 MG PO DAILY (Reported) Atropine 1% Ophthalmic Drops (Atropine 1% Ophthalmic Drops) 1 % Drops 2 DRP SL QID Prescribed by: MAYA PENNINGTON MD Docusate Sodium (Docusate Sodium) 250 Mg Capsule 250 MG PO HS (Reported) Dronabinol (Dronabinol) 2.5 Mg Capsule 2.5 MG PO DAILY Prescribed by: AUGUSTIN BARNHART MD Lactulose (Lactulose) 20 Gm/30 Ml Solution 20 GM PO DAILY Prescribed by: AUGUSTIN BARNHART MD Metformin (Metformin) 500 Mg Tablet 500 MG PO BID (Reported) Metoprolol Tartrate (Metoprolol Tartrate) 50 Mg Tablet 50 MG PO BID Prescribed by: AUGUSTIN BARNHART MD Olanzapine (Olanzapine) 5 Mg Tablet 5 MG PO DAILY Prescribed by: AUGUSTIN BARNHART MD As needed Acetaminophen (Acetaminophen) 325 Mg Capsule 650 MG PO QID PRN PRN For Pain ( Reported) Nitroglycerin SL (Nitrostat) 0.4 Mg Tab.subl 0.4 MG SL Q5MIN PRN PRN For Chest Pain (Reported) oxyCODONE (oxyCODONE) 5 Mg/5 Ml Solution 2.5-5 MG PO Q4H PRN PRN For Severe Pain Prescribed by: MAYA PENNINGTON MD Additional med instructions Medications for symptom control provided. Followup Plan Disposition: Discharge with comfort care plan after meeting with Hospice and Palliative on . Discharge today with family as Hospice will open Monday. Will require BLS transport. Patient Instructions Hospice has delivered equipment at home. Continue dressings changes as instructed. Time spent Greater than 30 minutes was spent in preparation of discharge with greater than 50% of that time dedicated to patient counseling and coordination of care copies to: Ld Turcios Navdeep MD May 12, 2017 11:30
--- NOTE | 2017-05-12 11:30 | NUR ---
Social Work: Discharge D: EMR reviewed. Pt is on day 21 of hospitalization. Pt discussed in multidisciplinary rounds and is medically stable for discharge home today via BLS in order to open with [facility] tomorrow. Project Leader confirmed transport via BLS ([facility]) at 1530 today. SW placed T/C to pt's spouse confirming transport time, spouse agreeable. SW discussed pt's rx with spouse - pt's spouse to come to hospital at 1300 today to work with neuropsychology director to learn how to do dressings overnight until [facility] can open tomorrow. Pt's spouse will retrieve rx and discharge packet from RN when she arrives at hospital today at 1300. RN notified of pt's spouse arrival time and transport time. SW notified RN that RN to provide spouse with discharge ppw and rx. RN agreeable. RN to contact neuropsychology director to confirm pt's spouse will be here at 1300. PCS form and ppw completed and left at RN Station - UA/behavioral health worker updated on transport time. A: Pt to return home today via BLS and open with [facility] tomorrow. P: Pt to discharge home via BLS ([facility]) today at 1530 and open with [facility] tomorrow. PCS form completed and supporting documentation attached - left at RN Station - UA/behavioral health worker updated on transport time. SW updated spouse on transport time of 1530 - spouse agreeable. Spouse to arrive at [facility] at 1300 to work with neuropsychology director and retrieve discharge ppw and rx. No other SW needs identified at this time, no other MD orders received. [facility] [place]
--- NOTE | 2017-05-12 11:31 | NUR ---
DISCHARGE TRANSPORTATION : Scheduled BLS transport with [facility] sampler pickup is at 1530, patient is returning home to open with Hospice tomorrow on 05/13/17 Updated SIGN BUILDER
--- NOTE | 2017-05-12 11:34 | PCM.DIMED ---
Discharge Instructions Date of Service May 12, 2017 Dates of Hospitalization Apr 21, 2017 at 13:59 Discharge Diagnosis Discharge Diagnosis Acute intraabdominal inflammation and infection. ielus Transaminitis, present on admission and active Respiratory alkalosis with metabolic acidosis. Dehydration Sinus tachycardia Normocytic anemia, chronic. Severe protein malnutrition, chronic. Septic shock, present on admission, resolved. Toxic Encephalopathy, active. Chronic- COPD Coronary artery disease, chronic. History of prior [place] requiring two stents. Elevated troponins stable. Renal cell carcinoma of right kidney, chronic. Essential Hypertension Diaetes mellitus, type 2 Medication Instructions Additional med instructions Medications for symptom control provided. Patient Instructions Patient Instructions Hospice has delivered equipment at home. Continue dressings changes as instructed. Walker Barnhart MD May 12, 2017 11:33
--- NOTE | 2017-05-12 13:29 | NUR ---
Inpatient Wound and Ostomy Nurse Patient seen with his for wound and ostomy education. Ostomy system replaced today with one piece. was shown how to cut wafer and template was saved for future fittings. was supplied with three additional one piece systems. Today stoma is pink, soft, os partially buried in RLQ. Peristomal skin healthy, pink, warm, no ulcerations or rash. was shown purpose and use of stoma paste and stoma powder. Wound packing was removed and replaced. Distal tunnel measures 7.5 cm today, otherwise no changes to dimensions. Wound bed beefy red, slight odor, and drainage has yellow tinge. was shown how to lightly moisten gauze packing and place into wound using Q tip. Secondary dressings of sacral Mepilex were provided, as well as ABDs and tape. was provided with enough supplies for one week. She stated understanding of all information provided. Patient tolerated care without complaint or signs of pain.
--- NOTE | 2017-05-12 15:48 | NUR ---
DISCHARGE Patient discharged home to hospice at 1540, BLS transport came and will take him home. Patient's in room this am to get teaching on ostomy care, dressing change, and medications. states that hospital bed is installed at home and hospice will follow up with care, verbalized understanding of medications and new Rx's.
== END 2017-05-12 15:40 | disposition hospice, home (50) | DRG 871 ==
LOC: SED 10:17 → EDBD 10:17 → CCU 13:59 → PCC 04-22 17:26 → OSC 04-30 15:18
PROVIDERS: ADMIT Internal Medicine; ATTEND Internal Medicine
PROC: 4A033R1 Measurement of Arterial Saturation, Peripheral, Percutaneous Approach (ICD-10-PCS; 2017-04-21)
PROC: 30233N1 Transfusion of Nonautologous Red Blood Cells into Peripheral Vein, Percutaneous Approach (ICD-10-PCS; 2017-04-21)
PROC: 3E0436Z Introduction of Nutritional Substance into Central Vein, Percutaneous Approach (ICD-10-PCS; principal; 2017-04-28)
PROC: 30233N1 Transfusion of Nonautologous Red Blood Cells into Peripheral Vein, Percutaneous Approach (ICD-10-PCS; 2017-05-06)
PROC: 30233N1 Transfusion of Nonautologous Red Blood Cells into Peripheral Vein, Percutaneous Approach (ICD-10-PCS; 2017-05-08)
DX: A41.9 Sepsis, unspecified organism (principal); R65.21 Severe sepsis with septic shock; G93.40 Encephalopathy, unspecified; E43 Unspecified severe protein-calorie malnutrition; K65.9 Peritonitis, unspecified; E87.4 Mixed disorder of acid-base balance; R18.8 Other ascites; J90 Pleural effusion, not elsewhere classified; K56.7 Ileus, unspecified; I47.1 Supraventricular tachycardia; K56.60 Unspecified intestinal obstruction; K81.1 Chronic cholecystitis; R41.0 Disorientation, unspecified; Z68.24 Body mass index [BMI] 24.0-24.9, adult; Z90.5 Acquired absence of kidney; E78.5 Hyperlipidemia, unspecified; I25.2 Old myocardial infarction; Z95.5 Presence of coronary angioplasty implant and graft; I25.10 Atherosclerotic heart disease of native coronary artery without angina pectoris; I10 Essential (primary) hypertension; D64.9 Anemia, unspecified; Z93.3 Colostomy status; E11.9 Type 2 diabetes mellitus without complications; Z51.5 Encounter for palliative care